=== PATIENT | female | born 1950 | race Asian ===

== ENCOUNTER 2018-02-07 12:59 | Emergency (ER) | payer BC ==
--- OUTSIDE RECORDS SUMMARY | 2018-02-07 13:01 | XMS REPORT | Clinical Summary ---
:1950 Author Organization [facility] Address [address] [place] [id number] Care Team Providers Name Role Phone Vita Taylor Primary Care Provider Allergies Active Allergy Reactions Severity Noted Date Comments Hydrocodone Palpitations, Other (See Comments) High 08/21/2016 Headaches Morphine GI Intolerance High 08/21/2016 Current Medications Prescription Sig. Disp. Refills Start Date End Date Status HYDROcodone-acetaminophen Take 1 tablet by 0 06/11/2016 Active (NORCO 10-325) 10-325 mg mouth 2 (two) times per tablet a day. metFORMIN (GLUCOPHAGE) Take 500 mg by 6 07/07/2016 Active 500 MG tablet mouth 2 (two) times a day. MOVANTIK 25 mg tablet TAKE 1 TABLET ONCE 0 07/24/2016 Active tablet A DAY FOR 90 DAY(S) ondansetron (ZOFRAN) 4 MG TAKE 1 TABLET BY 0 07/14/2016 Active tablet MOUTH EVERY 12 HOURS NEEDED FOR NAUSEA valACYclovir (VALTREX) Take 1,000 mg by 2 07/23/2016 Active 1000 MG tablet mouth 2 (two) times a day. omeprazole (PriLOSEC) 40 Take 40 mg by mouth Active MG capsule daily. aspirin (ECOTRIN) 81 MG Take 81 mg by mouth Active enteric coated tablet daily. cyanocobalamin, vitamin Place 2,500 mcg Active B-12, (VITAMIN B-12) under the tongue 2,500 mcg tablet, daily. sublingual ascorbic acid, vitamin C, Take 1,000 mg by Active (vitamin C) 1000 MG mouth daily. tablet cholecalciferol, vitamin Take 1,000 Units by Active D3, (VITAMIN D3) 1,000 mouth daily. unit tablet psyllium husk, aspartame, Take 1 Units by Active (METAMUCIL MULTIHEALTH mouth daily. FIBER) 3.4 gram/5.8 gram powder pravastatin (PRAVACHOL) Take 40 mg by mouth Active 40 MG tablet daily. multivitamin with Take 1 tablet by Active minerals tablet mouth daily. Active Problems Problem Noted Date Cancer 10/21/2006 Overview: Cervical 2007 Diabetes mellitus Overview: type II Frequent headaches Diabetes mellitus Overview: Borderline Family History Medical History Relation Name Comments No Known Problems Brother No Known Problems Brother No Known Problems Daughter No Known Problems Father No Known Problems Mother No Known Problems Sister No Known Problems Sister No Known Problems Sister No Known Problems Sister No Known Problems Son Relation Name Status Comments Brother Alive Brother Alive Daughter Alive Father Mother Alive Sister Alive Sister Alive Sister Alive Sister Alive Son Alive Social History Tobacco Use Types Packs/Day Years Used Date Current Every Day Smoker Cigarettes 0.5 Smokeless Tobacco: Never Used Tobacco Cessation: Ready to Quit: No Alcohol Use Drinks/Week oz/Week Comments No Sex Assigned at Date Recorded Not on file Last Filed Vital Signs Not on file Plan of Treatment Health Maintenance Due Date Last Done Comments FOOT EXAM 01/18/1960 OPHTHALMOLOGY EXAM 01/18/1960 COLONOSCOPY 01/18/2000 MAMMOGRAM 01/18/2000 ZOSTER VACCINE 2010 PNEUMOCOCCAL POLYSACCHARIDE VACCINE AGE 65 AND OVER 2015 PNEUMOCOCCAL-13 2015 INFLUENZA VACCINE 05/21/2018 Results Not on fileafter 02/06/2017 Insurance Payer Benefit Plan / Group Subscriber ID Type Phone Address BCBS BCBS CHOICE PPO/FEDERAL EMPL PPO xxxxxxxxxxxx PPO MEDICARE MEDICARE PART A AND B xxxxxxxxxx Medicare [place], [place]
[2018-02-07 13:52] LABS: Absolute Lymphocytes (CBC) 1.1 K/uL (0.7-4.9); Absolute Monocytes 0.3 K/uL (0.1-1.3); Absolute Neutrophil 3.7 K/uL (1.8-8.0); Basophils % 0.9 % (0-1.3); Eosinophils % 1.7 % (0-4.4); Hematocrit 40.5 % (36.0-45.0); Lymphocytes % 21.4 % (15.3-44.8); MCH 32.1 pg (27.0-35.0); MCV 95.7 fL (80-100); MPV 8.2 fL (7.6-11.3); Monocytes % 4.9 % (3.3-12.3); RBC Red Blood Cell Count 4.23 M/uL (3.86-4.86)
[2018-02-07 14:01] LABS: Bicarbonate 27 mEq/L (21-31); Glucose Level 105 mg/dL (65-120); Potassium 3.9 mEq/L (3.6-5.0); Sodium Level 134 mEq/L (135-145)
[2018-02-07 14:34] LABS: BUN Blood Urea Nitrogen 16 mg/dL (6-20)
[2018-02-07] MEDS ORDERED: FENTANYL CITR 100 MCG/2 ML ONE (14:36)
[2018-02-07] MEDS ORDERED: ONDANSETRON 4 MG/2 ML VIAL ONE (14:37)
[2018-02-07 14:42] LABS: Urine Blood NEGATIVE (NEG); Urine Glucose NEGATIVE (NEG); Urine Protein NEGATIVE (NEG)
[2018-02-07] MEDS ORDERED: D50W 25 GM/50 ML SYRINGE IV ONE (15:05)
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
--- NOTE | 2018-02-07 15:40 | RAD REPORT ---
EXAM DESCRIPTION: RAD - Shoulder Right 2 View - 02/07/2018 3:35 pm CLINICAL HISTORY: Right shoulder pain FINDINGS: No fracture or dislocation is seen. The bones are osteoporotic
[2018-02-07 15:46] LABS: Blood Morphology Comment NOT SEEN (NOT SEEN); Platelet Estimate ADEQ; Urine White Blood Cell Casts OK
--- NOTE | 2018-02-07 15:49 | EKG ---
Test Date: 2018-02-07 Test Time: 13:45:29 [employer] Registrar: SHERIE MEASUREMENT RESULTS: Intervals: Rate: 72 MA: 190 QRSD: 80 QT: 426 QTc: 466 [place]: P: 43 MA: 190 QRS: 17 T: 36 INTERPRETIVE STATEMENTS: Normal sinus rhythm Normal ECG Compared to ECG 12/14/2017 06:00:36 Myocardial infarct finding no longer present Electronically Signed On 02-07-18 15:48:51 CDT by Richard Neville
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
[2018-02-07] MEDS ORDERED: CYCLOBENZAPRINE 10 MG TAB ONE (16:14)
[2018-02-07 16:27] LABS: Urine Bacteria <20 /HPF (<20); Urine Culture Reflex Order NOT NEEDED; Urine Mucus NS /HPF (NONE SEEN); Urine RBC <5 /HPF (NONE SEEN)
[2018-02-07 16:48] VITALS: TEMP 98.9
[2018-02-07 16:50] VITALS: O2SAT 99
[2018-02-07 16:52] VITALS: BP 121/75
== END 2018-02-07 16:27 | disposition home or self-care (01) ==
LOC: ER 12:59
DX: M54.2 Cervicalgia (principal); M54.9 Dorsalgia, unspecified; V43.53XA Car driver injured in collision with pick-up truck in traffic accident, initial encounter; E11.9 Type 2 diabetes mellitus without complications; E78.00 Pure hypercholesterolemia, unspecified; Z88.5 Allergy status to narcotic agent
CPT/HCPCS: 36415; 70450; 71260; 72125; 74177; 80048; 81003; 81015; 82962; 84484; 85025; 86850; 86900; 86901; 93005; 96374; 96375; 99285; J2405; J3010; Q9967

== ENCOUNTER 2018-05-01 16:21 | Emergency (ER) | payer BC, OTHER ==
--- OUTSIDE RECORDS SUMMARY | 2018-05-01 16:23 | XMS REPORT | Clinical Summary ---
:1950 Author Organization [facility] Address [address] [place] [id number] Care Team Providers Name Role Phone Vita [...] Health Maintenance Due Date Last Done Comments DIABETIC FOOT EXAM 01/18/1960 DIABETIC RETINAL EYE EXAM 01/18/1960 BREAST CANCER SCREENING 01/18/2000 COLON CANCER SCREENING 01/18/2000 SHINGRIX VACCINE (#1) 01/18/2000 ZOSTER VACCINE 2010 PNEUMOCOCCAL POLYSACCHARIDE VACCINE AGE 65 AND OVER 2015 PNEUMOCOCCAL-13 2015 INFLUENZA VACCINE 05/21/2018 Results Not on fileafter 04/30/2017 Insurance Payer Benefit Plan / Group Subscriber ID Type Phone Address BCBS BCBS CHOICE PPO/FEDERAL EMPL PPO xxxxxxxxxxxx PPO MEDICARE MEDICARE PART A AND B xxxxxxxxxx Medicare [place], [place] [phone] [place] [address]
[2018-05-01] MEDS ORDERED: NA CHLORIDE 0.9% 1,000 ML ONE (17:17)
[2018-05-01] MEDS ORDERED: MEPERIDINE HCL 50 MG/ML AMP ONE (17:17)
[2018-05-01] MEDS ORDERED: ONDANSETRON 4 MG/2 ML VIAL ONE (17:17)
[2018-05-01 17:44] LABS: Absolute Lymphocytes (CBC) 0.7 K/uL (0.7-4.9); Absolute Monocytes 0.9 K/uL (0.1-1.3); Absolute Neutrophil 10.7 K/uL (1.8-8.0); Basophils % 0.3 % (0-1.3); Eosinophils % 0.9 % (0-4.4); Hematocrit 42.1 % (36.0-45.0); Lymphocytes % 5.8 % (15.3-44.8); MCH 32.9 pg (27.0-35.0); MCV 95.3 fL (80-100); Monocytes % 6.9 % (3.3-12.3); RBC Red Blood Cell Count 4.41 M/uL (3.86-4.86)
--- NOTE | 2018-05-01 17:46 | RAD REPORT ---
EXAM DESCRIPTION: CT - Stone Protocol - 05/01/2018 5:38 pm CLINICAL HISTORY: Flank pain. FLANK PAIN COMPARISON: Abdomen Pelvis W Contrast dated 12/14/2017Abdomen Pelvis W Contrast dated 12/14/2017; Head C Spine Cap W Con dated 02/07/2018 TECHNIQUE: Axial images were obtained without oral or IV contrast. Lack of contrast limits solid org an and vascular assessment. The [id number] spans the entirety of the system partially obscuring uppermost abdomen and lung bases. Coronal reformatted images were obtained and reviewed. All CT scans are performed using dose optimization technique as appropriate and may include automated exposure control or mA/KV adjustment according to patient size. FINDINGS: The lower lung bullock are clear. Imaged portions of the liver and spleen show no suspicious findings on non-contrast imaging. The panc reas and adrenal glands are normal. No pathologic lymphadenopathy in the abdomen or pelvis. No urinary tract stones or obstructive uropathy. Prominent right renal cyst is noted. No bowel obstruction, free air, free fluid or abscess. Normal appendix noted. No significant bony abnormality. IMPRESSION: No urinary tract stones or obstructive uropathy.
[2018-05-01 19:44] LABS: Blood Morphology Comment NOT SEEN (NOT SEEN); Platelet Estimate ADEQ
[2018-05-01] MEDS ORDERED: MEPERIDINE HCL 25 MG/0.5 ML ONE (20:04)
[2018-05-01 20:05] LABS: ALT/SGPT 22 U/L (12-78); AST/SGOT 18 U/L (15-37); Alkaline Phosphatase 77 U/L (45-117); Amylase Level 51 U/L (25-115); BUN Blood Urea Nitrogen 20 mg/dL (7-18); Bicarbonate 25 mmol/L (21-32); Bilirubin Direct 0.1 mg/dL (0-0.2); Bilirubin Total 0.5 mg/dL (0.2-1.0); Glucose Level 138 mg/dL (74-106); Lipase 297 U/L (73-393); Potassium 3.6 mmol/L (3.5-5.1); Protein, Total 7.5 g/dL (6.4-8.2); Sodium Level 141 mmol/L (136-145)
[2018-05-01 20:46] LABS: Urine Blood NEGATIVE (NEG); Urine Glucose NEGATIVE (NEG); Urine Protein NEGATIVE (NEG); Urine Specific Gravity 1.025 (1.005-1.030); Urine pH 5.5 (5.0-7.0)
[2018-05-01 20:46] LABS: Urine Amorphous Sediment 1+ /HPF (NONE SEEN); Urine Bacteria <20 /HPF (<20); Urine Culture Reflex Order NOT NEEDED; Urine RBC <5 /HPF (NONE SEEN)
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
--- NOTE | 2018-05-01 20:51 | ER ---
Nurse's Notes [facility] Name: Tunde Ochoa Age: 68 yrs Sex: Female : 1950 Arrival Date: 05/01/2018 Time: 16:22 Bed 5 Private MD: Out, [facility] Diagnosis: Unspecified abdominal pain;Vomiting;Low back pain Presentation: 05/01 16:38 Presenting complaint: Patient states: She's been throwing up for the past hour. Her aj1 states that she was vomiting in the bathroom and she passed out for approximately 15 seconds. States that she passed out again in the truck while vomiting. She was suppose to have a CT done today, but they weren't able to do it because she had eaten, so they had it rescheduled for tomorrow. She has been having RLQ and LLQ abdominal pain for 3 weeks. Transition of care: patient was not received from another setting of care. Onset of symptoms was May 01, 2018. Risk Assessment: Do you want to hurt yourself or someone else? Patient reports no desire to harm self or others. Initial Sepsis Screen: Does the patient meet any 2 criteria? No. Patient's initial sepsis screen is negative. Does the patient have a suspected source of infection? No. Patient's initial sepsis screen is negative. Care prior to arrival: None. 16:38 Method Of Arrival: Wheelchair aj1 16:38 Acuity: GUS 3 aj1 Triage Assessment: 16:45 General: Appears in no apparent distress. uncomfortable, Behavior is calm, cooperative, aj1 appropriate for age. Pain: Complains of pain in right lower quadrant and left lower quadrant Pain currently is 10 out of 10 on a pain scale. Neuro: Level of Consciousness is awake, alert, obeys commands, Speech is normal. Cardiovascular: Patient's skin is warm and dry. Respiratory: Airway is patent Respiratory effort is even, unlabored, Respiratory pattern is regular, symmetrical. GI: Reports constipation, nausea, vomiting, Patient currently denies diarrhea. Derm: Skin is pink, warm \T\ dry. normal. Historical: - Allergies: 16:45 Morphine; aj1 - Home Meds: 16:45 Metformin Oral [Active]; Omeprazole Oral [Active]; pravastatin oral oral [Active]; aj1 Aspirin Oral [Active]; - PMHx: 16:45 Diabetes - NIDDM; High Cholesterol; aj1 - Immunization history:: Flu vaccine is not up to date. - Social history:: Smoking status: Patient/guardian denies using tobacco. - Ebola Screening: : Patient denies travel to an Ebola-affected area in the 21 days before illness onset. Screenin:10 Abuse screen: Denies threats or abuse. Denies injuries from another. Nutritional hb screening: No deficits noted. Tuberculosis screening: No symptoms or risk factors identified. Fall Risk None identified. Assessment: 17:10 General: Appears in no apparent distress. ill, Behavior is calm, cooperative. Pain: hb Pain currently is 8 out of 10 on a pain scale. Neuro: Level of Consciousness is awake, alert, obeys commands, Oriented to person, place, time, situation. Cardiovascular: Heart tones S1 S2 present Capillary refill < 3 seconds Patient's skin is warm and dry. Respiratory: Airway is patent Trachea midline Respiratory effort is even, unlabored, Respiratory pattern is regular, symmetrical, Breath sounds are clear bilaterally. GI: Abdomen is non-distended, Bowel sounds present X 4 quads. Abd is soft and non tender X 4 quads. Reports nausea, vomiting. : No signs and/or symptoms were reported regarding the genitourinary system. EENT: No signs and/or symptoms were reported regarding the EENT system. Derm: No signs and/or symptoms reported regarding the dermatologic system. Skin is intact, is healthy with good turgor. Musculoskeletal: No signs and/or symptoms reported regarding the musculoskeletal system. 18:14 Reassessment: Patient appears in no apparent distress at this time. Patient and/or hb family updated on plan of care and expected duration. Pain level reassessed. Patient is alert, oriented x 3, equal unlabored respirations, skin warm/dry/pink. Vital Signs: 16:45 BP 94 / 67; Pulse 104; Resp 20; Temp 98.2; Pulse Ox 95% on R/A; Weight 58.06 kg; Height aj1 5 ft. 0 in. (152.40 cm); Pain 10/10; 17:30 BP 106 / 60; Pulse 99; Resp 17; Pulse Ox 100% on R/A; hb 18:14 BP 109 / 63; Pulse 87; Resp 16; Pulse Ox 100% on R/A; hb 19:43 BP 97 / 62; Pulse 82; Resp 18; Pulse Ox 97% on R/A; tl2 20:28 BP 101 / 55; Pulse 81; Resp 18; Pulse Ox 96% on R/A; tl2 16:45 Body Mass Index 25.00 (58.06 kg, 152.40 cm) aj1 ED Course: 16:22 Patient arrived in ED. mr 16:23 Out, [facility] is Private Physician. mr 16:44 Triage completed. aj1 16:45 Arm band placed on Patient placed in an exam room. aj1 17:00 Niranjan Garrison, PARVEZ is PHCP. pm1 17:00 Fernando Deleon MD is Attending Physician. pm1 17:10 Patient has correct armband on for positive identification. Placed in gown. Bed in low hb position. Call light in reach. Side rails up X 1. 17:[address] vm2 17:30 Inserted saline lock: 20 gauge in right forearm, using aseptic technique. Blood hb collected. 17:35 CT completed. Patient tolerated procedure well. Patient moved back from CT. vm2 17:36 Ludivina Reyez, RN is Primary Nurse. hb 17:[address] In Process Unspecified. EDMS 21:08 No provider procedures requiring assistance completed. IV discontinued, intact, tl1 bleeding controlled, No redness/swelling at site. Pressure dressing applied. Administered Medications: 17:30 Drug: Demerol 50 mg Route: IVP; Site: right forearm; hb 18:20 Follow up: Response: No adverse reaction; Pain is decreased hb 17:30 Drug: Zofran 4 mg Route: IVP; Site: right forearm; hb 18:15 Follow up: Response: No adverse reaction; Nausea is decreased hb 17:30 Drug: NS 0.9% 1000 ml Route: IV; Rate: 1000 ml; Site: right forearm; hb 21:07 Follow up: IV Status: Completed infusion tl1 20:04 Drug: Demerol 25 mg Route: IVP; Infused Over: 2 mins; Site: right wrist; tl1 21:07 Follow up: Response: No adverse reaction; Marked relief of symptoms; Pain is decreased tl1 Outcome: 20:50 Discharge ordered by . pm1 21:08 Discharged to home ambulatory, with family. tl1 21:08 Condition: good 21:08 Discharge instructions given to patient, Instructed on discharge instructions, follow up and referral plans. medication usage, Demonstrated understanding of instructions, follow-up care, medications, Prescriptions given X 2. 21:09 Patient left the ED. tl1 Signatures: Dispatcher [employer] EDMS Elsie Chavez, RN RN aj1 Cecy Galeas, Lynda, RN RN tl1 Niranjan Garrison, [employer]GRAM DIRECTOR [employer] PROGRAM DIRECTOR pm1 Ludivina Reyez RN RN Billie Christianson RN RN tl2 Enid Carter 2 Corrections: (The following items were deleted from the chart) 16:58 16:38 Presenting complaint: Patient states: She's been throwing up for the past hour. aj1 Her states that she was vomiting in the bathroom and she passed out for approximately 15 seconds. States that she passed out again in the truck while vomiting. She was suppose to have a CT done today, but they were able to do it because she had eaten, so they had it rescheduled for tomorrow. She has been having RLQ and LLQ abdominal pain for 3 weeks. aj1
[2018-05-01 21:17] VITALS: TEMP 98.2
[2018-05-01 21:22] VITALS: BP 101/55; O2SAT 96
== END 2018-05-01 21:09 | disposition home or self-care (01) ==
LOC: ER 16:21
DX: R10.9 Unspecified abdominal pain (principal); M54.5 Low back pain; E11.9 Type 2 diabetes mellitus without complications; E78.00 Pure hypercholesterolemia, unspecified; Z88.5 Allergy status to narcotic agent
CPT/HCPCS: 36415; 74176; 76377; 80048; 80076; 81003; 81015; 82150; 83690; 85025; 99284; J2175; J2405; J7030

== ENCOUNTER 2018-05-25 03:02 | Inpatient (IN) | payer BC, OTHER ==
--- OUTSIDE RECORDS SUMMARY | 2018-05-25 03:04 | XMS REPORT | Clinical Summary ---
:1950 Author Organization [facility] Address [address] [place] [id number] Care Team Providers Name Role Phone Vita [...] INFLUENZA VACCINE 05/21/2018 Results Not on fileafter 05/24/2017 Insurance Payer Benefit Plan / Group Subscriber ID Type Phone Address BCBS BCBS CHOICE PPO/FEDERAL EMPL PPO xxxxxxxxxxxx PPO MEDICARE MEDICARE PART A AND B xxxxxxxxxx Medicare [place], [place] [phone] [place] [address]
[2018-05-25] MEDS ORDERED: MEPERIDINE HCL 25 MG/0.5 ML ONE ×2 (03:27→04:37)
--- NOTE | 2018-05-25 04:26 | ER ---
Nurse's Notes [facility] Name: Tunde Ochoa Age: 68 yrs Sex: Female : 1950 Arrival Date: 05/25/2018 Time: 03:03 Bed 5 Private MD: Diagnosis: Displaced fracture of base of neck of right femur;Nondisplaced transverse fracture of shaft of right radius Presentation: 05/25 03:00 Presenting complaint: EMS states: Patient tried climbing over child gate, fell on her ea right side onto tile floor. Pt reports she hit her head, denied LOC. Care prior to arrival: None. Mechanism of Injury: Fall from standing position. Trauma event details: Injury occurred in the [facility], Injury occurred: at home. Injury occurred: May 25, 2018 Injury occurred at: 03:10. 03:00 Acuity: GUS 3 ea 03:00 Method Of Arrival: EMS: [facility] ea 03:00 Transition of care: patient was not received from another setting of care. Onset of ea symptoms was May 25, 2018. Risk Assessment: Do you want to hurt yourself or someone else? Patient reports no desire to harm self or others. Initial Sepsis Screen: Does the patient meet any 2 criteria? No. Patient's initial sepsis screen is negative. Does the patient have a suspected source of infection? No. Patient's initial sepsis screen is negative. Historical: - Allergies: 03:24 Morphine; ea - Home Meds: 03:24 Aspirin Oral [Active]; Metformin Oral [Active]; Omeprazole Oral [Active]; pravastatin ea Oral [Active]; - PMHx: 03:24 Diabetes - NIDDM; High Cholesterol; ea - Immunization history:: Adult Immunizations up to date. - Social history:: Smoking status: Patient/guardian denies using tobacco. - Family history:: not pertinent. - Ebola Screening: : No symptoms or risks identified at this time. - Hospitalizations: : No recent hospitalization is reported. Screenin:20 Abuse screen: Denies threats or abuse. Nutritional screening: No deficits noted. ea Tuberculosis screening: No symptoms or risk factors identified. Fall Risk Fall in past 12 months (25 points). Primary Survey: 03:00 A: Airway: patent. Breathing/Chest: Respiratory pattern: regular, Respiratory effort: ea spontaneous, unlabored, Breath sounds: clear, Chest inspection: symmetrical rise and fall of the chest. Circulation: Skin color: pink, Skin temperature: warm. Disability Alert. 04:00 Reassessment Breathing/Chest Respiratory pattern Regular Respiratory effort Spontaneous ea Unlabored Chest inspection Symmetrical. Secondary Survey: 03:00 Musculoskeletal: Swelling present in right hip and right wrist Reports pain in right ea hip and right wrist. Assessment: 03:00 General: Appears uncomfortable, Behavior is calm, cooperative, appropriate for age. ea Pain: Complains of pain in right hip and right wrist. Neuro: Level of Consciousness is awake, alert, obeys commands, Oriented to person, place, time, situation. Cardiovascular: Patient's skin is warm and dry. Respiratory: Airway is patent Respiratory effort is even, unlabored, Respiratory pattern is regular, symmetrical. Musculoskeletal: Swelling present in right wrist. 04:15 Reassessment: Patient and/or family updated on plan of care and expected duration. Pain ea level reassessed. Patient is alert, oriented x 3, equal unlabored respirations, skin warm/dry/pink. 05:15 Reassessment: Patient and/or family updated on plan of care and expected duration. Pain ea level reassessed. Patient is alert, oriented x 3, equal unlabored respirations, skin warm/dry/pink. 06:15 Reassessment: Report called to receiving nurse on 4 th floor. ea 06:30 Reassessment: pt O2 sats dropped to 87% after administration of pain medication O2 ea applied via NC \\T\\ 2 Lpm pt sats now 98%. 07:05 Reassessment: Patient is alert, oriented x 3, equal unlabored respirations, skin aa5 warm/dry/pink. Pt notified of wait time before transportation to assigned room, pt verbalized understanding. Pt states "my pain is worse when I move even just a little bit". pt c/o pain to right hip and right wrist. Rates pain 6/10 on a pain scale at this time. Bed remains in low position, side rails x 2, call chavez within reach. . 07:05 Cardiovascular: Pulses are 3+ in right dorsalis pedis artery and left dorsalis pedis aa5 artery. 07:35 Reassessment: Patient is alert, oriented x 3, equal unlabored respirations, skin aa5 warm/dry/pink. Vital Signs: 03:05 BP 106 / 64; Pulse 98; Resp 18; Temp 98.2; Pulse Ox 99% on R/A; Weight 58.97 kg; Height ea 5 ft. (152.40 cm); Pain 9/10; 04:15 BP 110 / 68; Pulse 82; Resp 18; Pulse Ox 96% on R/A; ea 05:15 BP 112 / 70; Pulse 70; Resp 18; Pulse Ox 97% on R/A; Pain 8/10; ea 06:15 BP 104 / 64; Pulse 95; Resp 18; Pulse Ox 99% on R/A; ea 07:05 BP 106 / 64; Pulse 90; Resp 16 S; Temp 98.0(TE); Pulse Ox 100% on 2 lpm NC; aa5 03:05 Body Mass Index 25.39 (58.97 kg, 152.40 cm) ea Buckhead Coma Score: 03:05 Eye Response: spontaneous(4). Verbal Response: oriented(5). Motor Response: obeys ea commands(6). Total: 15. 05:15 Eye Response: spontaneous(4). Verbal Response: oriented(5). Motor Response: obeys ea commands(6). Total: 15. 06:15 Eye Response: spontaneous(4). Verbal Response: oriented(5). Motor Response: obeys ea commands(6). Total: 15. Trauma Score (Adult): 03:05 Eye Response: spontaneous(1); Verbal Response: oriented(1); Motor Response: obeys ea commands(2); Systolic BP: > 89 mm Hg(4); Respiratory Rate: 10 to 29 per min(4); Buckhead Score: 15; Trauma Score: 12 07:05 Eye Response: spontaneous(1); Verbal Response: oriented(1); Motor Response: obeys aa5 commands(2); Systolic BP: > 89 mm Hg(4); Respiratory Rate: 10 to 29 per min(4); Alice Score: 15; Trauma Score: 12 ED Course: 03:00 Arm band placed on right wrist. Patient placed in an exam room, on a stretcher, on ea pulse oximetry. 03:00 Patient has correct armband on for positive identification. Bed in low position. Call ea light in reach. Side rails up X2. 03:03 Patient arrived in ED. ds1 03:05 Michael Patel MD is Attending Physician. rn 03:06 Sarah Mendiola, RN is Primary Nurse. ea 03:10 Triage completed. ea 03:20 Patient maintains SpO2 saturation greater than 95% on room air. Thermoregulation: warm ea blanket given to patient. 03:35 Radiology exam delayed due to Patient in XRay. la2 03:36 Radiology exam delayed due to Waiting for pain medication before moving patient to CT la2 for exam. Patient in extreme pain. 03:52 Radiology exam delayed due to Waiting for IV access so patient can be given pain vm2 medication prior to moving to CT for exam. 04:10 Missed attempt(s): 20 gauge in left hand. Bleeding controlled, band aid applied, bb catheter tip intact. 04:18 XRAY Wrist RIGHT 3 view In Process Unspecified. EDMS 04:18 XRAY Pelvis In Process Unspecified. EDMS 04:18 XRAY Hip RIGHT 2 view In Process Unspecified. EDMS 04:23 Edgar Foy MD is Hospitalizing Provider. rn 04:30 Radiology exam delayed due to IV started but still waiting for pain meds to be given vm2 prior to moving to CT for exam. Attending ED nurse stated it would be approx. 10 min. before I can transport the patient to the CT department for her exam. 04:30 Initial lab(s) drawn, by ED staff, sent to lab. T\\T\\S collected, blood band applied to bb patient. Inserted saline lock: 20 gauge in left antecubital area, using aseptic technique. ,using aseptic technique. by Dr Patel Blood collected. 05:[address] via stretcher. kw1 05:17 CT completed. Patient tolerated procedure well. Patient moved back from CT. kw1 05:33 Orthoglass splint: Sugar tong splint applied on right arm. oe 06:30 Inserted saline lock: 18 gauge in right EJ, using aseptic technique. ea 07:00 Report received from ROSS Smith. Sarah notified me that report has been called to aa5 receiving nurse and pt can be transported to assigned room around 0730. 07:05 No provider procedures requiring assistance completed. Patient admitted, IV remains in ea place. 07:29 Primary Nurse role handed off by Sarah Mendiola, RN bd Administered Medications: 04:10 Drug: Demerol 25 mg {Note: medication administered IM to right deltoid.} Route: IVP; ea Site: Other; 04:16 Follow up: Response: No adverse reaction; Pain is decreased ea 04:32 Drug: Demerol 25 mg {Note: medication adminsitered IM in left deltoid .} Route: IVP; ea Site: Other; 05:00 Follow up: Response: No adverse reaction; Pain is decreased ea 04:32 Drug: Zofran 4 mg Route: IM; Site: left deltoid; ea 05:00 Follow up: Response: No adverse reaction ea 05:13 CANCELLED (Duplicate Order): Zofran 4 mg IVP once; over 2 minutes ea Outcome: 04:25 Decision to Hospitalize by Provider. rn 05:00 Instructed on the need for admit. ea 07:35 Admitted to Med/surg accompanied by tech, via stretcher, with oxygen, with chart. aa5 07:35 Condition: stable 07:40 Patient left the ED. aa5 Signatures: Dispatcher [employer] EDMS Zeina Gaspar Demi ds1 Francia Daniel RN RN bb Michael Patel MD MD rn Calderon, Audri, RN RN aa5 Chet Crouch Victoria vm2 Antunez, Elena, RN RN ea Ardoin, Leslie la2 Josseline Hudson kw1 Corrections: (The following items were deleted from the chart) 07:12 07:10 Reassessment: Report called to receiving nurse on 4 th floor. ea 07:51 07:49 Patient left the ED. aa5 aa5
--- NOTE | 2018-05-25 04:26 | EDPHYS ---
Physician Documentation [facility] Name: Tunde Ochoa Age: 68 yrs Sex: Female : 1950 Arrival Date: 05/25/2018 Time: 03:03 Bed 5 Private MD: ED Physician Michael Patel HPI: 05/25 04:09 This 68 yrs old Female presents to ER via EMS with complaints of Fall Injury. rn 04:09 Details of fall: The patient fell from an upright position, while walking. Onset: The rn symptoms/episode began/occurred just prior to arrival. Associated injuries: The patient sustained injury to the head, right hip, right wrist. Severity of symptoms: At their worst the symptoms were moderate, in the emergency department the symptoms are unchanged. The patient has not experienced similar symptoms in the past. Had several patron drinks tonight, normally doesn't drink, tried to climb over safety gate, tripped, fell onto right side, hit head, no LOC, reports only right wrist and right hip pain, not ambulatory.. Historical: - Allergies: 03:24 Morphine; ea - Home Meds: 03:24 Aspirin Oral [Active]; Metformin Oral [Active]; Omeprazole Oral [Active]; pravastatin ea Oral [Active]; - PMHx: 03:24 Diabetes - NIDDM; High Cholesterol; ea - Immunization history:: Adult Immunizations up to date. - Social history:: Smoking status: Patient/guardian denies using tobacco. - Family history:: not pertinent. - Ebola Screening: : No symptoms or risks identified at this time. - Hospitalizations: : No recent hospitalization is reported. ROS: 04:09 Constitutional: Negative for fever, chills, and weight loss, Eyes: Negative for injury, rn pain, redness, and discharge, Neck: Negative for injury, pain, and swelling, Cardiovascular: Negative for chest pain, palpitations, and edema, Respiratory: Negative for shortness of breath, cough, wheezing, and pleuritic chest pain, Abdomen/GI: Negative for abdominal pain, nausea, vomiting, diarrhea, and constipation, Back: Negative for injury and pain, MS/Extremity: + right wrist pain, + right hip pain Skin: Negative for injury, rash, and discoloration, Neuro: Negative for headache, weakness, numbness, tingling, and seizure. Exam: 04:09 Constitutional: This is a well developed, well nourished patient who is awake, alert, rn appears in pain Head/Face: Normocephalic, atraumatic. Eyes: Pupils equal round and reactive to light, extra-ocular motions intact. Lids and lashes normal. Conjunctiva and sclera are non-icteric and not injected. Cornea within normal limits. Periorbital areas with no swelling, redness, or edema. Neck: Trachea midline, no thyromegaly or masses palpated, and no cervical lymphadenopathy. Supple, full range of motion without nuchal rigidity, or vertebral point tenderness. No Meningismus. Cardiovascular: Regular rate and rhythm with a normal S1 and S2. No gallops, murmurs, or rubs. Normal PMI, no JVD. No pulse deficits. Respiratory: Lungs have equal breath sounds bilaterally, clear to auscultation and percussion. No rales, rhonchi or wheezes noted. No increased work of breathing, no retractions or nasal flaring. Abdomen/GI: Soft, non-tender, with normal bowel sounds. No distension or tympany. No guarding or rebound. No evidence of tenderness throughout. Back: No spinal tenderness. MS/ Extremity: Pulses equal, no cyanosis. Neurovascular intact. Painful ROM right hip, held in passive external rotation. + mild right wrist tenderness along distal radius, no deformity, + mild swelling. Neuro: Awake and alert, GCS 15, oriented to person, place, time, and situation. Cranial nerves II-XII grossly intact. Motor strength 5/5 in all extremities. Sensory grossly intact. Vital Signs: 03:05 BP 106 / 64; Pulse 98; Resp 18; Temp 98.2; Pulse Ox 99% on R/A; Weight 58.97 kg; Height ea 5 ft. (152.40 cm); Pain 9/10; 04:15 BP 110 / 68; Pulse 82; Resp 18; Pulse Ox 96% on R/A; ea 05:15 BP 112 / 70; Pulse 70; Resp 18; Pulse Ox 97% on R/A; Pain 8/10; ea 06:15 BP 104 / 64; Pulse 95; Resp 18; Pulse Ox 99% on R/A; ea 07:05 BP 106 / 64; Pulse 90; Resp 16 S; Temp 98.0(TE); Pulse Ox 100% on 2 lpm NC; aa5 03:05 Body Mass Index 25.39 (58.97 kg, 152.40 cm) ea [place] Coma Score: 03:05 Eye Response: spontaneous(4). Verbal Response: oriented(5). Motor Response: obeys ea commands(6). Total: 15. 05:15 Eye Response: spontaneous(4). Verbal Response: oriented(5). Motor Response: obeys ea commands(6). Total: 15. 06:15 Eye Response: spontaneous(4). Verbal Response: oriented(5). Motor Response: obeys ea commands(6). Total: 15. Trauma Score (Adult): 03:05 Eye Response: spontaneous(1); Verbal Response: oriented(1); Motor Response: obeys ea commands(2); Systolic BP: > 89 mm Hg(4); Respiratory Rate: 10 to 29 per min(4); Alice Score: 15; Trauma Score: 12 07:05 Eye Response: spontaneous(1); Verbal Response: oriented(1); Motor Response: obeys aa5 commands(2); Systolic BP: > 89 mm Hg(4); Respiratory Rate: 10 to 29 per min(4); Alice Score: 15; Trauma Score: 12 Procedures: 04:21 Peripheral line: by aseptic technique a peripheral line was placed in the left rn antecubital vein, Using u/s guidance, placed left peripheral IV, good blood flow and flush, single stick, tolerated well.. 06:13 Peripheral line: by aseptic technique a peripheral line was placed in the right jr8 external jugular vein. MDM: 03:05 Patient medically screened. rn 04:22 Differential diagnosis: closed head injury, contusion, fracture, multiple trauma, rn sprain, strain. Data reviewed: vital signs, nurses notes, radiologic studies, plain films, and as a result, I will admit patient. Counseling: I had a detailed discussion with the patient and/or guardian regarding: the historical points, exam findings, and any diagnostic results supporting the discharge/admit diagnosis, radiology results, the need for further work-up and treatment in the hospital. Response to treatment: the patient's symptoms have mildly improved after treatment, and as a result, I will admit patient. Admission orders: after a detailed discussion of the patient's condition and case, the admit orders are written by me. ED course: Pt with subcapital right femur fracture, + buckle fracture of right wrist, will admit for femur fracture, admitted to Dr. Foy.. 05/25 04:00 Order name: CBC with Diff rn 05/25 04:00 Order name: Basic Metabolic Panel rn 05/25 04:00 Order name: Protime (+inr) rn 05/25 04:00 Order name: Ptt, Activated rn 05/25 04:00 Order name: Type And Screen rn 05/25 04:01 Order name: CBC with Automated Diff EDMS 05/25 03:06 Order name: CT Head C Spine rn 05/25 03:06 Order name: XRAY Wrist RIGHT 3 view rn 05/25 03:06 Order name: XRAY Pelvis rn 05/25 03:06 Order name: XRAY Hip RIGHT 2 view rn 05/25 04:01 Order name: Basic Metabolic Panel EDMS 05/25 04:01 Order name: ETOH Level rn 05/25 04:00 Order name: IV Start; Complete Time: 07:15 rn 05/25 04:01 Order name: EKG; Complete Time: 04:01 rn 05/25 04:01 Order name: EKG - Nurse/Tech; Complete Time: 07:14 rn 05/25 04:23 Order name: Splint - Sugar Tong - Forearm; Complete Time: 05:33 rn Administered Medications: 04:10 Drug: Demerol 25 mg {Note: medication administered IM to right deltoid.} Route: IVP; ea Site: Other; 04:16 Follow up: Response: No adverse reaction; Pain is decreased ea 04:32 Drug: Demerol 25 mg {Note: medication adminsitered IM in left deltoid .} Route: IVP; ea Site: Other; 05:00 Follow up: Response: No adverse reaction; Pain is decreased ea 04:32 Drug: Zofran 4 mg Route: IM; Site: left deltoid; ea 05:00 Follow up: Response: No adverse reaction ea 05:13 CANCELLED (Duplicate Order): Zofran 4 mg IVP once; over 2 minutes ea Disposition: 05/25/18 04:25 Hospitalization ordered by Edgar Foy for Inpatient Admission. Preliminary diagnosis are Displaced fracture of base of neck of right femur, Nondisplaced transverse fracture of shaft of right radius. - Bed requested for Telemetry/MedSurg (Inpatient). - Status is Inpatient Admission. aa5 - Condition is Stable. - Problem is new. - Symptoms have improved. UTI on Admission? No Addendum: 05/27/2018 07:11 Co-signature as Attending Physician, Michael Patel MD. r n Signatures: Dispatcher [employer] EDMS Francia Daniel RN RN bb Michael Patel MD MD rn Calderon, Audri, RN RN aa5 Rosa King Josh, PA PA jr8 Sarah Mendiola RN RN ea Corrections: (The following items were deleted from the chart) 05/25 05:13 04:32 Zofran 4 mg IVP once; over 2 minutes ordered. mo melendez 05:13 05:13 Zofran 4 mg IVP once; over 2 minutes ordered. nora melendez 05:46 04:25 Hospitalization Ordered by Edgar Foy MD for Inpatient Admission. Preliminary cc diagnosis is Displaced fracture of base of neck of right femur; Nondisplaced transverse fracture of shaft of right radius. Bed requested for Telemetry/MedSurg (Inpatient). Status is Inpatient Admission. Condition is Stable. Problem is new. Symptoms have improved. UTI on Admission? No. rn 07:49 05:46 05/25/2018 04:25 Hospitalization Ordered by Edgar Foy MD for Inpatient aa5 Admission. Preliminary diagnosis is Displaced fracture of base of neck of right femur; Nondisplaced transverse fracture of shaft of right radius. Bed requested for Telemetry/MedSurg (Inpatient). Status is Inpatient Admission. Condition is Stable. Problem is new. Symptoms have improved. UTI on Admission? No. cc
[2018-05-25] MEDS ORDERED: ONDANSETRON 4 MG/2 ML VIAL ONE (04:37)
[2018-05-25 04:47] LABS: Hematocrit 38.6 % (36.0-45.0); MCH 32.9 pg (27.0-35.0); MCV 94.9 fL (80-100); RBC Red Blood Cell Count 4.07 M/uL (3.86-4.86)
[2018-05-25 04:48] LABS: Absolute Lymphocytes (CBC) 1.1 K/uL (0.7-4.9); Absolute Monocytes 0.4 K/uL (0.1-1.3); Absolute Neutrophil 3.7 K/uL (1.8-8.0); Basophils % 0.6 % (0-1.3); Eosinophils % 1.1 % (0-4.4); Lymphocytes % 20.7 % (15.3-44.8); Monocytes % 6.9 % (3.3-12.3)
[2018-05-25] MEDS ORDERED: ONDANSETRON 4 MG/2 ML VIAL IV PRN (04:52)
[2018-05-25] MEDS: HYDROMORPHONE HCL 1 MG/ML INJ IV PRN ×4 (06:17→20:17)
[2018-05-25] MEDS ORDERED: HYDROMORPHONE HCL 1 MG/ML INJ ONE (06:24)
--- NOTE | 2018-05-25 07:37 | P.HP ---
Certification for Inpatient Patient admitted to: Inpatient With expected LOS: >2 Midnights Patient will require the following post-hospital care: None Practitioner: I am a practitioner with admitting privileges, knowledge of patient current condition, hospital course, and medical plan of care. Services: Services provided to patient in accordance with Admission requirements found in Title 42 Section 412.3 of the Code of Federal Regulations Patient History Date of Service: 05/25/18 Reason for admission: Right femur fracture and right buckle fracture of the radius History of Present Illness: Patient is a 68-year-old female who had been drinking yesterday evening. She normally does not drink according to her and her . However, this evening they have some friends over and she had some Patron. She got out of bed as if her got she had a gate to keep her 3yo Yorkie from going in to the kitchen. She fell over the gait and fell on to her right side. This is how she suffered a right hip fracture and a right wrist fracture. She has a history of diabetes but denies any other medical complications. She denies any shortness of breath or chest pain. She is a little anxious of having surgery. She stated that she wanted her family orthopedic physician, Dr. Amaro, to proceed with surgery. I did speak to her that he was not special education paraprofessional but she said that she wanted me to a notify him and she would wait until Saturday if necessary to be seen. At this time, we will contact her per for orthopedic and discussed the case and see if he is willing to accept as he is not special education paraprofessional this weekend. Otherwise, medically she is very stable. The benefits of surgery outweigh the risk and would recommend to proceed with surgery as soon as possible. Allergies morphine Allergy (Verified 12/14/17 06:45) Unknown Home Medications: Pantoprazole [Protonix Tab] 40 mg PO DAILY #30 tab 12/14/17 - Past Medical/Surgical History Diabetic: Yes -: Diabetes mellitus type 2 -: Hyperlipidemia -: Renal cyst -: Tobacco abuse -: Herniated disk -: Chronic back pain -: GERD -: Hysterectomy -: Breast augmentation -: Psychosocial/ Personal History: The patient is . She has 2 children. 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 - Family History Father Family History: Reviewed- Non-Contributory - Social History Smoking Status: Never smoker Alcohol use: Yes CD- Drugs: No Caffeine use: Yes Review of Systems 10-point ROS is otherwise unremarkable Physical Examination - Vital Signs Temperature: 99 F Blood Pressure: 115/80 Pulse: 80 Respirations: 20 Pulse Ox (%): 89 - Physical Exam General: Alert, In no apparent distress, Oriented x3 HEENT: Atraumatic, PERRLA, Mucous membr. moist/pink, EOMI, Sclerae nonicteric Neck: Supple, 2+ carotid pulse no bruit, No LAD, Without JVD or thyroid abnormality Respiratory: Clear to auscultation bilaterally, Normal air movement Cardiovascular: Regular rate/rhythm, Normal S1 S2, No murmurs Gastrointestinal: Normal bowel sounds, Soft and benign, Non-distended, No tenderness Musculoskeletal: No clubbing, No swelling, Tenderness Integumentary: No rashes, No significant lesion, No tenderness/swelling Neurological: Normal speech, Normal tone, Sensation intact, Cranial nerves 3-12 intact, Normal affect, Abnormal gait, Abnormal strength, Abnormal tone Lymphatics: No axilla or inguinal lymphadenopathy - Studies Laboratory Data (last 24 hrs) 05/25/18 04:20: PT 11.8, INR 1.00, APTT 32.6 05/25/18 04:20: Sodium 143, Potassium 4.0, BUN 18, Creatinine 0.70, Glucose 150 H 05/25/18 04:20: WBC 5.3, Hgb 13.4, Hct 38.6, Plt Count 277 Assessment & Plan - Problems (Diagnosis) (1) Buckle fracture of right wrist Current Visit: Yes Status: Acute (2) Closed right hip fracture Current Visit: Yes Status: Acute (3) Diabetes mellitus Current Visit: No Status: Chronic Qualifiers: Diabetes mellitus type: type 2 Diabetes mellitus retirement insulin use: 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 Gentle IV hydration 2. NPO after midnight 3. Notify orthopedic physician, Dr. Amaro 4. Pain control 5. Medical observation 6. Benefits of surgery outweigh the risk and would proceed with surgery as soon as possible 7. GI and DVT prophylaxis Discharge Plan: Home Plan to discharge in: Greater than 2 days - Advance Directives Does patient have a Living Will: No Does patient have a Durable POA for Healthcare: No - Code Status/Comfort Care Code Status Assessed: Yes Code Status: Full Code Critical Care: No Time Spent Managing PTS Care (In Minutes): 50
--- NOTE | 2018-05-25 09:26 | RAD REPORT ---
EXAM DESCRIPTION: RAD - Pelvis - 05/25/2018 4:18 am CLINICAL HISTORY: Pelvic pain status post fall FINDINGS: A mildly displaced fracture involves the subcapital/proximal neck of the right femur. No d islocation is seen
[2018-05-25] MEDS: NA CHLORIDE 0.9% 1,000 ML IV SCH ×2 (09:27→17:18)
[2018-05-25] MEDS: ACETAMINOPHEN 500 MG TAB PO PRN (09:27)
--- NOTE | 2018-05-25 09:27 | RAD REPORT ---
EXAM DESCRIPTION: RAD - Hip Right 2 View - 05/25/2018 4:18 am CLINICAL HISTORY: Right hip pain status post fall FINDINGS: A mildly displaced fracture involves the subcapital/proximal neck of the right femur. No d islocation is seen
--- NOTE | 2018-05-25 09:29 | RAD REPORT ---
EXAM DESCRIPTION: RAD - Wrist Right 3 View - 05/25/2018 4:18 am CLINICAL HISTORY: Right wrist pain status post injury FINDINGS: The bones are osteoporotic No fracture or dislocation is seen. If the patient continues to have symptoms to suggest an occult fr acture then a followup plain film series in 7 days would be recommended.
--- NOTE | 2018-05-25 09:41 | RAD REPORT ---
EXAM DESCRIPTION: CT - Head C Spine Mpr Wo Con - 05/25/2018 6:22 am CLINICAL HISTORY: Head and neck injury status post fall. Head and neck pain COMPARISON: January 2018 TECHNIQUE: Computed axial tomography of the head and cervical spine was obtained. Sagittal and coronal reconstruction was performed. A preliminary report was generated by [facility] and reviewed prior to this dictation All CT scans are performed using dose optimization technique as appropriate and may include automated exposure control or mA/KV adjustment according to patient size. FINDINGS: An intracranial bleed is not seen. The ventricles are normal in caliber. An extra-axial fl uid collection is not noted.Fluid within the visualized sinuses and mastoids is not seen. Mild chroni c sphenoid sinusitis is present A cervical fracture is not visualized. No dislocation is noted. IMPRESSION: No acute intracranial abnormality is seen. A cervical fracture is not visualized. If the patient continues to have symptoms to suggest intracra nial /spinal cord pathology then MRI would be recommended
[2018-05-25 12:51] LABS: Urine Appearance CLEAR; Urine Bilirubin NEGATIVE (NEG); Urine Blood NEGATIVE (NEG); Urine Color YELLOW; Urine Glucose NEGATIVE (NEG); Urine Protein NEGATIVE (NEG); Urine Urobilinogen 0.2 mg/dL (0.2-1.0)
[2018-05-25 13:05] LABS: Urine Microscopic Reflex NO UMIC
[2018-05-25] MEDS: HYDROCODONE/APAP 10/325 TAB PO PRN (14:33)
[2018-05-25] MEDS: ENOXAPARIN 30 MG/0.3 ML SQ SCH (17:18)
--- NOTE | 2018-05-25 19:32 | RAD REPORT ---
EXAM DESCRIPTION: CT - Wrist Right Wo Cont - 05/25/2018 6:41 pm CLINICAL HISTORY: Wrist pain status post fall TECHNIQUE: Axial computed tomography of the right wrist was obtained with coronal and sagittal recon struction All CT scans are performed using dose optimization technique as appropriate and may include automated exposure control or mA/KV adjustment according to patient size. FINDINGS: An oblique lucency is present within the metaphysis of the distal radius compatible with a nondisplaced fracture. A 4 millimeter avulsed fracture fragment is present along the dorsal aspect o f the radius. The lunate is tilted dorsally with respect to the capitate IMPRESSION: Fracture of the distal radial metaphysis Lunate is tilted dorsally with respect to the capitate which may indicate dorsal intercalated scaphoi d instability
--- NOTE | 2018-05-25 20:07 | CON ---
Date of Consultation: 05/25/2018 History Of Present Illness: I have seen this patient before; however, she currently presents today. She unfortunately fell injuring her right wrist as well as right hip. She was seen and examined in the emergency department. She was ruled out for other injuries; however, she was admitted to the car e of the hospitalist and I am consulted to see her. Physical Examination: She has a sugar-tong splint on the right wrist. She also is lying in the bed. She appears to be jackson rovascular intact to her hand and her right lower extremity. She has no pain with palpation or crepi tation with the exception of her right hip and right wrist. The right wrist does have some swelling associated with it. Diagnostic Data: Review of x-ray of the wrist failed to demonstrate any overt fracture or dislocatio n; however, review of the right hip demonstrates a displaced femoral neck fracture. At this time, ri sks, benefits, and alternatives to operative methods of managing the right hip were discussed with e patient and the family. We also probably do need to obtain better imaging of the right wrist as he r complaints of pain are quite significant. There is a possible buckle fracture line, which is best seen on the AP and was not mentioned in the operative report. This would change our management. We will have her n.p.o. after 9 a.m. tomorrow. We will discuss with the hospitalist at this time for op erative intervention of the hip; however, I really think the any fracture of the wrist to be nondispl aced. Most likely, this will be treated in a short-arm cast and probably a forearm walker could be u sed if needed. We would limit closer towards arthroplasty being preferable over screw fixation because of this polytrauma. This was discussed with the patient 's family. /LYDIA Voice ID: [id number] Report ID: [id number]
[2018-05-25] MEDS: ATORVASTATIN 10 MG TAB PO SCH (20:17)
[2018-05-26] MEDS: HYDROMORPHONE HCL 1 MG/ML INJ IV PRN ×4 (00:37→12:28)
[2018-05-26] MEDS: PANTOPRAZOLE 40MG TABLET PO SCH (05:38)
[2018-05-26 05:43] VITALS: BMI 27.0
[2018-05-26 06:16] LABS: Magnesium 1.8 mg/dL (1.8-2.4); Phosphorus 3.1 mg/dL (2.5-4.9)
[2018-05-26] MEDS ORDERED: MAGNESIUM SULFATE 1 gm IVPB 1 GM/100 ML BAG IV ONE (07:00)
--- NOTE | 2018-05-26 07:35 | EKG ---
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
[2018-05-26] MEDS: NA CHLORIDE 0.9% 1,000 ML IV SCH ×6 (07:40→18:59)
[2018-05-26] MEDS ORDERED: HOME MED 1 EA UNK (Pravastatin Sodium [Pravastatin Sodium] 1 TAB) PO SCH (09:00)
[2018-05-26] MEDS: ENOXAPARIN 30 MG/0.3 ML SQ SCH (09:00)
[2018-05-26] MEDS ORDERED: HOME MED 1 EA UNK (Omeprazole [Prilosec] 40 MG) PO SCH (09:00)
--- NOTE | 2018-05-26 10:17 | P.PN ---
Subjective Date of Service: 05/26/18 Chief Complaint: Right femur fracture and right buckle fracture of the radius Subjective: No C/O voiced, Improving, NPO, Doing well, Other (Awaiting Surgery with Dr Amaro today at 4:30 for Hip Fracture) Review of Systems General: As per HPI Physical Examination - Vital Signs Temperature: 97.3 F Blood Pressure: 116/63 Pulse: 79 Respirations: 18 Pulse Ox (%): 95 - Physical Exam General: Alert, In no apparent distress HEENT: Atraumatic, PERRLA, EOMI Neck: Supple, JVD not distended Respiratory: Clear to auscultation bilaterally, Normal air movement Cardiovascular: Regular rate/rhythm, Normal S1 S2 Gastrointestinal: Normal bowel sounds, No tenderness Musculoskeletal: No tenderness Integumentary: No rashes Neurological: Normal speech, Normal tone, Normal affect Lymphatics: No axilla or inguinal lymphadenopathy - Studies Medications List Reviewed: Yes Assessment & Plan - Problems (Diagnosis) (1) Closed right hip fracture Onset Date: 05/26/18 Current Visit: Yes Status: Acute Plan: Right Hip Fracture Post Mechanical Fall -Orthopedic Consulted. Appreciate Reccs -Scheduled for Surgical Procedure today -NPO and IV fluids for now -Pain mgmt Qualifiers: Encounter type: initial encounter Qualified Code(s): S72.001A - Fracture of unspecified part of neck of right femur, initial encounter for closed fracture (2) Buckle fracture of right wrist Onset Date: 05/26/18 Current Visit: Yes Status: Acute Plan: Wrist Xray was inconculsive. CT wrist however consistent with Fracture of the distal radial metaphysis and Lunate is tilted dorsally with respect to the capitate which may indicate dorsal intercalated scaphoid instability -Orthopedic Consulted. Awaiting reccs in terms of the management for the wrist. 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 use Diabetes mellitus complication status: with other specified complication Qualified Code(s): E11.69 - Type 2 diabetes mellitus with other specified complication (4) Hyperlipidemia Onset Date: 05/26/18 Current Visit: Yes Status: Chronic Qualifiers: Hyperlipidemia type: unspecified Qualified Code(s): E78.5 - Hyperlipidemia , unspecified (5) Tobacco abuse Onset Date: 05/26/18 Current Visit: Yes Status: Chronic (6) Chronic pain disorder Current Visit: No Status: Chronic (7) GERD (gastroesophageal reflux disease) Current Visit: No Status: Suspected Qualifiers: Esophagitis presence: esophagitis presence not specified Qualified Code(s) : K21.9 - Gastro-esophageal reflux disease without esophagitis Discharge Plan: Other Plan to discharge in: Greater than 2 days - Code Status/Comfort Care Code Status Assessed: Yes Critical Care: No
[2018-05-26] MEDS ORDERED: FENTANYL CITR 100 MCG/2 ML ONE ×2 (16:06→17:31)
[2018-05-26] MEDS ORDERED: PROPOFOL 200 MG/20 ML VIAL IV ONE (16:06)
[2018-05-26] MEDS ORDERED: LIDOCAINE 2% MPF 5 ML VIAL ONE (16:06)
[2018-05-26] MEDS ORDERED: ROCURONIUM 50 MG/5 ML VIAL IV ONE (16:06)
[2018-05-26] MEDS: CEFAZOLIN/SWI 1gm 1 GM/10 ML SYR ONE ×2 (16:45→17:00)
[2018-05-26] MEDS ORDERED: TRANEXAMIC ACID 1,000 MG in NA CHLORIDE 0.9% 50 ML IV ONE ×4 (17:00)
[2018-05-26] MEDS ORDERED: Phenylephrine HCl 10 MG/ML 1 ML VIAL ONE (17:59)
[2018-05-26] MEDS ORDERED: KETOROLAC 30 MG/ML INJ ONE (18:10)
[2018-05-26] MEDS ORDERED: ONDANSETRON HCL 40 MG/20 ML VIAL ONE (18:10)
[2018-05-26] MEDS ORDERED: DEXAMETHASONE 10 MG/ML VIAL ONE (18:10)
[2018-05-26] MEDS ORDERED: GLYCOPYRROLATE 0.2 MG/ML SYR ONE ×2 (18:17)
[2018-05-26] MEDS ORDERED: NA CHLORIDE 0.9% 1,000 ML ONE (18:20)
--- NOTE | 2018-05-26 18:44 | P.BOP ---
Preoperative diagnosis: right femoral neck fracture, right distal radius fracture Postoperative diagnosis: same Primary procedure: right bipolar hemiarthoplasty Secondary procedure: casting right wrist Estimated blood loss: 100 ccs Anesthesia: General Complications: None Transferred to: Recovery Room Condition: Good
[2018-05-26] MEDS: MEPERIDINE HCL 50 MG/ML AMP ONE ×4 (18:57→19:12)
[2018-05-26] MEDS ORDERED: ONDANSETRON 4 MG/2 ML VIAL ONE (19:04)
[2018-05-26] MEDS ORDERED: MEPERIDINE HCL 50 MG/ML AMP ONE (19:23)
[2018-05-26] MEDS: ATORVASTATIN 10 MG TAB PO SCH (22:08)
[2018-05-26] MEDS ORDERED: CEFAZOLIN/SWI 1gm 1 GM/10 ML SYR ONE (23:02)
[2018-05-27] MEDS: HYDROMORPHONE HCL 1 MG/ML INJ IV PRN ×5 (00:32→20:12)
[2018-05-27] MEDS ORDERED: CEFAZOLIN/NS 1gm 1 GM/50 ML BAG IVPB SCH (01:00)
[2018-05-27] MEDS: NA CHLORIDE 0.9% 1,000 ML IV SCH ×3 (04:51→23:40)
[2018-05-27 05:13] LABS: BUN Blood Urea Nitrogen 11 mg/dL (7-18); Bicarbonate 26 mmol/L (21-32); Glucose Level 213 mg/dL (74-106); Potassium 4.5 mmol/L (3.5-5.1); Sodium Level 137 mmol/L (136-145)
--- NOTE | 2018-05-27 05:30 | OP ---
Date of Procedure: 05/26/2018 Surgeon: Zac Amaro MD Preoperative Diagnoses: 1.Right displaced femoral neck fracture. 2.Right nondisplaced distal radius fracture. Postoperative Diagnoses: 1.Right displaced femoral neck fracture. 2.Right nondisplaced distal radius fracture. Procedures: 1.Right hip bipolar hemiarthroplasty using a Biomet mini taper lock stem as well as a bipolar head n abdulaziz +3. 2.Casting of right distal radius. Estimated Blood Loss: 100 cc. Complications: There were no complications. Specimens: No pathology specimens sent. Indication For Operation: Ms. Ochoa is a 68-year-old female who fell injuring her right hip as well as right wrist. She was seen and examined in the emergency department where she had x-rays taken of her wrist, which were read out as no fracture, also x-rays of her hip which were read out as a femora l neck fracture. She has also had a CT scan to confirm a fracture which appears probable on the x-ra ys to demonstrate that she does have an essentially nondisplaced extra-articular distal radius fractu re. All risks, benefits, and alternatives to different methods of treating both injuries were discus sed with the patient as well as the family. The decision was made to select a weightbearing prosthes is versus screw fixation. Also, there is a consideration of bipolar versus total hip arthroplasty. After given the risks, benefits and alternatives, arrangements were made for a high demand stem with a bipolar bearing which could be converted to a total hip if it became necessary; however, would have less chance of dislocation as well as casting of the distal radius. Risks, benefits, and alternativ es of this procedure again discussed. The patient and family state they understand the things presen robinson and wished to proceed. Description Of Procedure: The patient was taken to the operating room and placed in supine position. General anesthesia was obtained by the staff. Following this, she was then placed left side down on the operating table with an axillary roll. All bony prominences were checked by Anesthesia. She wa s properly positioned using hip positioners. Following this, her right lower extremity is then prepp ed and draped in usual sterile fashion for arthroplasty. An incision made carefully through skin and soft tissues. Meticulous hemostasis being maintained using Bovie electrocautery. This leads down t o the fascia. A small stab wound was made in the fascia to ensure correct placement. The fascial in cision was then brought up near the tip of the greater trochanter where the fibers of gluteus omar were encountered. These were then spread using finger pressure. The sciatic nerve was then palpate d and protected throughout. Small amount of bursa and posterior fat was removed, care being taken to avoid injury to thigh nerve. Following this, the external rotators and capsule were then taken down carefully and tagged for later repair. The femoral neck itself was quite displaced, perhaps being m ore displaced than it appeared on the x-ray. Simple internal rotation of the hip completed the fractu re and a saw was then used to cut the femoral neck. All neck pieces were then removed. Attention wa s then turned to the ball. The ball was removed and sized using ring gauges. After this, the acetab ulum was cleared of any debris. Hemostasis was obtained. Attention was then turned with a box cutte r to establish lateralization of the femur. The broach was then used to a size 6. Size 6 appeared t o be a good fit and with torquing would not allow any rotation. Decision was made to stop. It was t hen trialed with a standard ball. It did have some shuck, although it was fairly stable, decision wa s made to move forward with +3, +3 was then trialed and it comes to full extension. It was stable to full flexion, full adduction, and internal rotation of 30 degrees to 40 degrees. Decision was made to proceed with this bearing. The trials were then removed. The wound was copiously irrigated with jet lavage. The final stem was then placed at the identical level as the trial. The final +3 ball w as then placed without difficulty, it was checked. It is found to be stable with full flexion, adduc tion and internal rotation of 45 degrees. The wound was again irrigated and the external rotators we re repaired back to the greater trochanter using bone tunnels. Wound was again irrigated. The fasci a closed in a watertight fashion using heavy Vicryl sutures, it was again irrigated. The skin was cl osed using interrupted Vicryl sutures, followed by esther. The patient was then placed in an Aquace l dressing. Attention was turned to the right upper extremity. The right upper extremity was then p laced into a well-padded short-arm cast and allowed to dry. The patient was then awakened and taken to recovery room in good condition. ISAIAS Voice ID: [id number] Report ID: [id number]
[2018-05-27] MEDS: PANTOPRAZOLE 40MG TABLET PO SCH (06:21)
[2018-05-27] MEDS ORDERED: CEFAZOLIN/SWI 1gm 1 GM/10 ML SYR IV SCH (09:00)
[2018-05-27] MEDS: HYDROCODONE/APAP 10/325 TAB PO PRN ×2 (10:31→16:30)
[2018-05-27] MEDS: ENOXAPARIN 30 MG/0.3 ML SQ SCH (20:12)
[2018-05-27] MEDS: ATORVASTATIN 10 MG TAB PO SCH (20:12)
--- NOTE | 2018-05-27 20:57 | PN ---
Date of Progress Note: 05/27/2018 Subjective: The patient is seen and examined. Chart reviewed and case discussed with RN. The patient still reports pain, mainly in her right upper extremity. Review of Systems: Negative except as above. Medications: List reviewed. Physical Examination: Vital Signs: Temperature 97, heart rate 95, blood pressure 101/55, respirations 18, O2 96% on room air. General: Awake, alert, oriented x3, in some mild distress. Elderly female, in pain. CV: S1, S2. No murmurs. Regular rate and rhythm. Peripheral pulses present. Respiratory: Clear to auscultation bilaterally. No wheezing. No stridor. No use of accessory muscles. Gastrointestinal: Abdomen is soft, nontender, nondistended. Positive bowel sounds. Extremities: No clubbing, cyanosis. Mild edema in the right lower extremity. Musculoskeletal: Right lower extremity; hip incision site clean, dry, and intact. Right upper extremity in a cast. Neurovascularly intact. Neuro: Cranial nerves 2 through 12 intact grossly. No focal neurological deficit. Moves all 4 extremities. Speech is normal. Laboratory Data: Sodium 137, potassium 4.5, chloride 106, CO2 26, BUN 11, creatinine 0.6, glucose 213, calcium 8.2, magnesium 2. Assessment And Plan: A 68-year-old female with: 1. Closed right hip fracture, initial encounter, status post open reduction and internal fixation, postoperative day #1. We will continue pain medications , PT eval, possible rehab referral. 2. Buckle fracture of right wrist, initial encounter. The patient has had cast placed by Dr. Amaro. 3. Diabetes mellitus type 2 without long-term use of insulin with hyperglycemia. We will continue sliding scale insulin. 4. Mixed hyperlipidemia. 5. Nicotine dependence with cigarette smoking. 6. Chronic pain disorder. 7. Gastroesophageal reflux disease. 8. Gastrointestinal and deep venous thrombosis prophylaxis addressed. Code status full SA/MODL Voice ID: [id number] Report ID: [id number] MTDD
[2018-05-28] MEDS: HYDROMORPHONE HCL 1 MG/ML INJ IV PRN ×6 (00:47→20:34)
[2018-05-28] MEDS: HYDROCODONE/APAP 10/325 TAB PO PRN ×2 (03:37→10:53)
[2018-05-28] MEDS: NA CHLORIDE 0.9% 1,000 ML IV SCH (05:05)
[2018-05-28 05:15] LABS: Absolute Lymphocytes (CBC) 1.2 K/uL (0.7-4.9); Absolute Monocytes 0.5 K/uL (0.1-1.3); Absolute Neutrophil 4.7 K/uL (1.8-8.0); Basophils % 0.4 % (0-1.3); Eosinophils % 1.1 % (0-4.4); Hematocrit 29.4 % (36.0-45.0); MCH 33.7 pg (27.0-35.0); MCV 95.7 fL (80-100); MPV 8.3 fL (7.6-11.3); Monocytes % 7.7 % (3.3-12.3); RBC Red Blood Cell Count 3.08 M/uL (3.86-4.86)
[2018-05-28] MEDS: PANTOPRAZOLE 40MG TABLET PO SCH (05:51)
--- NOTE | 2018-05-28 07:07 | PN ---
Date of Progress Note: 05/27/2018 The patient is seen today. Her dressing is clean, dry, and intact. EHL, tibialis anterior, plantar flexion are strong. Complaints of pain in the hip are mild only. Also with regard to her hand, she is complaining of stiffness and swelling of her fingers. Her cast does not appear to be too tight. She is encouraged movement of her finger. She says that she was out walking today and she did walk o ut of the room and apparently did fairly well with that. There is no CBC today. We will start Loven ox injections with CBC tomorrow. I would like to remove the Owens catheter as soon as Medicine deeme d it appropriate. Otherwise, I will see her most likely tomorrow and discharge planning should be in progress. ISAIAS Voice ID: [id number] Report ID: [id number]
[2018-05-28 08:10] VITALS: O2SAT 96
[2018-05-28] MEDS: ENOXAPARIN 30 MG/0.3 ML SQ SCH ×2 (08:41→20:35)
--- NOTE | 2018-05-28 14:52 | PN ---
Date of Progress Note: 05/28/2018 Ms. Ochoa is seen today. Her dressing is clean, dry, and intact. She has been afebrile. Her hemogl obin is 10.4, hematocrit is 29.4. She has had a Rehab consult. They are awaiting authorization. Co ntinue physical therapy, anticoagulation, and discharge planning is in progress. /LYDIA Voice ID: [id number] Report ID: [id number]
--- NOTE | 2018-05-28 14:52 | DS ---
Date of Discharge: 05/28/2018 Consultants: Dr. Amaro with Orthopedic Surgery. Procedures: On 05/26/2018, right hip bipolar hemiarthroplasty and casting of the right distal radius . Admitting Diagnoses: 1.Buckle fracture of the right wrist. 2.Closed hip fracture, right. 3.Diabetes mellitus type 2 without long-term use of insulin. 4.Hyperlipidemia. 5.Nicotine dependence with cigarette smoking. Discharge Diagnoses: 1.Closed right hip fracture, initial encounter, status post open reduction and internal fixation. 2.Buckle fracture of the right wrist, initial encounter, status post distal radius casting. 3.Diabetes mellitus type 2 without long-term use of insulin with hyperglycemia. 4.Mixed hyperlipidemia. 5.Nicotine dependence with cigarette smoking. 6.Chronic pain disorder. 7.Gastroesophageal reflux disease without esophagitis. Hospital Course: The patient is a 68-year-old female, comes in with fracture of the right femur and right buckle fracture of the radius after a fall. The patient was seen by Dr. Amaro and she unde rwent surgery as mentioned above. Her right radius was casted. She did well postoperatively. Her h emoglobin levels remained stable. The patient was started on Lovenox for deep venous thrombosis prop hylaxis. The patient's pain was controlled with medications. She was working well with Physical The rapy. She remained afebrile. The patient was then referred over to rehab for physical therapy. The patient was accepted and was discharged. The patient's other medical conditions including diabetes remained stable throughout the course of the hospital stay. The patient was counseled against abisai shirley. The patient was then discharged to inpatient rehab in stable condition. Activity: As per rehab. Diet: Diabetic. Followup: Follow up with primary care physician in 1-2 weeks. Follow up with Orthopedic surgeon, Dr Maribeth Amaro in 2 weeks. Return to ER for worsening condition. Physical Examination: General: Awake, alert, oriented x3, not in any acute distress. Elderly female. CV: S1 and S2. No murmurs. Peripheral pulses present. Respiratory: Moving air well bilaterally. Abdomen: Soft, nontender, nondistended. Positive bowel sounds. Extremities: No clubbing, cyanosis, or edema. Musculoskeletal: Right upper extremity casted. Right lower extremity incision site clean, dry, and intact. Neurologic: Nonfocal. Total time spent discharging the patient was 35 minutes. Code Status: Full. SA/MODL Voice ID: [id number] Report ID: [id number]
[2018-05-28] MEDS: ACETAMINOPHEN 500 MG TAB PO PRN (17:54)
--- NOTE | 2018-05-28 19:34 | RAD REPORT ---
EXAM DESCRIPTION: RAD - Chest Single View - 05/28/2018 7:26 pm CLINICAL HISTORY: Fever Chest pain. COMPARISON: Chest Single View dated 12/14/2017; Abdomen 1 View (KUB) dated 07/10/2016; CHEST PA AND LA T 2 VIEW dated 05/10/2015; CHEST PA AND LAT 2 VIEW dated 01/27/2015 FINDINGS: Portable technique limits examination quality. Small vague ill-defined opacity is present in the right lung base suspected represent atelectasis, de veloping pneumonia or aspiration. The lungs are otherwise clear. The heart is normal in size. No disp laced fractures.
[2018-05-28] MEDS ORDERED: POLYETHYL GLY 3350 17 GM/DOSE PO PRN (20:00)
[2018-05-28] MEDS: ATORVASTATIN 10 MG TAB PO SCH (20:35)
[2018-05-28] MEDS: DOCUSATE NA 100 MG CAP PO SCH (20:35)
[2018-05-28] MEDS ORDERED: Levofloxacin500mg IV 500 MG/100 ML BAG IV SCH (21:00)
[2018-05-29] MEDS: HYDROMORPHONE HCL 1 MG/ML INJ IV PRN ×3 (00:22→08:55)
[2018-05-29] MEDS: HYDROCODONE/APAP 10/325 TAB PO PRN ×2 (02:33→07:34)
[2018-05-29] MEDS: PANTOPRAZOLE 40MG TABLET PO SCH (05:47)
[2018-05-29 08:37] VITALS: BP 120/56; TEMP 98.1
[2018-05-29] MEDS: DOCUSATE NA 100 MG CAP PO SCH (08:53)
[2018-05-29] MEDS: ENOXAPARIN 30 MG/0.3 ML SQ SCH (08:53)
[2018-05-29] MEDS ORDERED: POLYETHYL GLY 3350 17 GM/DOSE PO SCH (09:00)
--- NOTE | 2018-05-29 11:37 | P.DS ---
Admission Date: 05/25/18 Discharge Date: 05/29/18 Primary Care Provider: Michael Taylor NP Disposition: TRANSFER TO INPATIENT REHAB Discharge Condition: FAIR Reason for Admission: Right femur fracture and right buckle fracture of the radius Consultations: Orthopedics-Dr. Amaro Procedures: Surgery: Date of Procedure: 05/26/2018 Surgeon: Zac Amaro MD Preoperative Diagnoses: 1. Right displaced femoral neck fracture. 2. Right nondisplaced distal radius fracture. Postoperative Diagnoses: 1. Right displaced femoral neck fracture. 2. Right nondisplaced distal radius fracture. Procedures: 1. Right hip bipolar hemiarthroplasty using a Biomet mini taper lock stem as well as a bipolar head neck +3. 2. Casting of right distal radius. Estimated Blood Loss: 100 cc. Complications: There were no complications. - Problems (1) GERD (gastroesophageal reflux disease) Current Visit: No Status: Chronic Qualifiers: Esophagitis presence: esophagitis presence not specified Qualified Code(s) : K21.9 - Gastro-esophageal reflux disease without esophagitis (2) Diabetes mellitus Onset Date: 05/26/18 Current Visit: Yes Status: Chronic Qualifiers: Diabetes mellitus type: type 2 Diabetes mellitus care home insulin use: without police commissioner use Diabetes mellitus complication status: with other specified complication Qualified Code(s): E11.69 - Type 2 diabetes mellitus with other specified complication (3) Hyperlipidemia Onset Date: 05/26/18 Current Visit: Yes Status: Chronic Qualifiers: Hyperlipidemia type: unspecified Qualified Code(s): E78.5 - Hyperlipidemia , unspecified (4) Tobacco abuse Onset Date: 05/26/18 Current Visit: Yes Status: Chronic (5) Chronic pain disorder Current Visit: No Status: Chronic (6) Buckle fracture of right wrist Onset Date: 05/26/18 Current Visit: Yes Status: Acute Qualifiers: Encounter type: initial encounter Qualified Code(s): S62.101A - Fracture of unspecified carpal bone, right wrist, initial encounter for closed fracture (7) Closed right hip fracture Onset Date: 05/26/18 Current Visit: Yes Status: Acute Qualifiers: Encounter type: initial encounter Qualified Code(s): S72.001A - Fracture of unspecified part of neck of right femur, initial encounter for closed fracture (8) Atelectasis Current Visit: Yes Status: Acute (9) Pneumonia Current Visit: Yes Status: Suspected Qualifiers: Pneumonia type: due to unspecified organism Laterality: right Lung location: lower lobe of lung Qualified Code(s): J18.1 - Lobar pneumonia, unspecified organism (10) Anemia Current Visit: Yes Status: Acute Qualifiers: Anemia type: other cause Brief History of Present Illness: 68-year-old female presented to emergency room after a fall. Patient found to have fracture of the right femur and right buckle fracture of the radius. Patient was admitted for further evaluation. Orthopedics was consulted. Hospital Course: During the course of her stay intervention was recommended by orthopedics. Hemoglobin remained stable. Open reduction and internal fixation was done to the right hip fracture. Distal radius casting was done to the buckle fracture of the right wrist. Patient tolerated procedure well. Patient improved with physical therapy. Patient requested inpatient rehab. Patient was accepted to go to inpatient rehab. She will continue her care there. Patient may continue with pain control medication. Patient continue with DVT prophylaxis. Patient will need follow up with orthopedics. During the course of her stay patient developed some atelectasis to the right base of the lung. Pneumonia was suspected. At discharge to inpatient rehab she will continue with Levaquin 500 mg daily for 7 days. Incentive spirometer is recommended. Patient with history of tobacco abuse. Tobacco cessation recommended. Patient may require nicotine patch. Patient has diabetes. This remained stable. She will continue with Glucophage 500 mg 1 pill daily. Recommendation is to maintain blood sugars less 140 fasting and less than 200 after meals. Further adjustment can be done by her PCP. Patient has GERD. She will continue with Prilosec 40 mg 1 pill once daily. Patient with chronic pain. She will continue with medication. Patient had mild anemia postoperatively. She will continue with multi vitamin daily. Vital Signs/Physical Exam: Temp Pulse Resp BP Pulse Ox 98.1 F 91 H 18 120/56 L 96 05/29/18 08:00 05/29/18 08:00 05/29/18 08:00 05/29/18 08:00 05/29/18 08:00 General: Alert, In no apparent distress, Oriented x3, Cooperative HEENT: Atraumatic Neck: Supple Respiratory: Clear to auscultation bilaterally, Normal air movement Cardiovascular: Normal pulses, Regular rate/rhythm Gastrointestinal: Normal bowel sounds, Soft and benign, Non-distended, No masses , No rebound, No guarding Musculoskeletal: No tenderness, No warmth Integumentary: No erythema, No warmth, No cyanosis Neurological: Normal speech, Normal strength at 5/5 x4 extr, Normal tone, Normal affect Laboratory Data at Discharge: WBC 6.6 K/uL (4.3-10.9) D 05/28/18 04:08 Hgb 10.4 g/dL (12.0-15.0) L D 05/28/18 04:08 Hct 29.4 % (36.0-45.0) L D 05/28/18 04:08 Plt Count 214 K/uL (152-406) D 05/28/18 04:08 PT 11.8 SECONDS (9.5-12.5) 05/25/18 04:20 INR 1.00 05/25/18 04:20 APTT 32.6 SECONDS (24.3-36.9) 05/25/18 04:20 Sodium 137 mmol/L (136-145) 05/27/18 04:23 Potassium 4.5 mmol/L (3.5-5.1) 05/27/18 04:23 BUN 11 mg/dL (7-18) 05/27/18 04:23 Creatinine 0.60 mg/dL (0.55-1.3) 05/27/18 04:23 Glucose 213 mg/dL (74-106) H 05/27/18 04:23 Phosphorus 3.1 mg/dL (2.5-4.9) 05/26/18 05:42 Magnesium 2.0 mg/dL (1.8-2.4) 05/27/18 04:23 Home Medications: Hydrocodone 7.5/APAP 325 [[place] 7.5/325 mg*] 0.5 tab PO TID 05/25/18 Metformin HCl [Glucophage*] 1 tab PO DAILY 05/25/18 Mv-Mn/Folic Acid/Calcium/Vit K [Women's 50 Plus Daily Formula] 1 tab PO DAILY Omeprazole [Prilosec] 40 mg PO DAILY 05/25/18 Pravastatin Sodium 1 tab PO DAILY 05/25/18 Docusate [Colace Cap*] 100 mg PO BID cap 05/28/18 Enoxaparin Sodium [Lovenox 30 MG INJ*] 30 mg SQ Q12HR syr 05/28/18 Polyethyl Gly 3350 [Glycolax*] 17 gm PO DAILY udbot 05/28/18 Levofloxacin [Levaquin] 500 mg PO DAILY #7 tablet 05/29/18 New Medications: Levofloxacin [Levaquin] 500 mg PO DAILY #7 tablet Patient Discharge Instructions: 1. Patient will need a follow up with her PCP in 2-4 weeks to monitor her progress. 2. Patient presented to the ER after a fall. Patient found to have right hip fracture and right wrist fracture. Open reduction and internal fixation was done to the right hip fracture. Distal radius casting was done to the buckle fracture of the right wrist. Patient tolerated procedure well. Patient improved with physical therapy. Patient has been accepted to inpatient rehab. Patient will continue with inpatient rehab. Patient may continue with pain control medication. Patient will continue continue with DVT prophylaxis. Patient will need follow up with orthopedics in 1-2 weeks. 3. During the course of her stay patient developed some atelectasis to the right base of the lung. Pneumonia was suspected. At discharge to inpatient rehab she will continue with Levaquin 500 mg daily for 7 days. Incentive spirometer is recommended. Patient with history of tobacco abuse. Tobacco cessation recommended. Patient may require nicotine patch. 4. Patient has diabetes. This remained stable. She will continue with Glucophage 500 mg 1 pill daily. Recommendation is to maintain blood sugars less 140 fasting and less than 200 after meals. Further adjustment can be done by her PCP. 5. Patient has GERD. She will continue with Prilosec 40 mg 1 pill once daily. 6. Patient with chronic pain. She will continue with medication. 7. Patient has hyperlipidemia. She will continue with her medication. Diet: ADA Activity: as per rehab Time spent managing pt's care (in minutes): 55
== END 2018-05-29 11:28 | DRG 469 ==
LOC: ER 03:02 → ERHOLD 04:30 → 4TH 06:35
PROVIDERS: ADMIT Hospitalist; ATTEND Family Medicine
PROC: 2W3CX1Z Immobilization of Right Lower Arm using Splint (ICD-10-PCS; 2018-05-25)
PROC: 2W3CX2Z Immobilization of Right Lower Arm using Cast (ICD-10-PCS; 2018-05-26)
PROC: 0SRR0JZ Replacement of Right Hip Joint, Femoral Surface with Synthetic Substitute, Open Approach (ICD-10-PCS; principal; 2018-05-26 16:30)
DX: S72.011A Unspecified intracapsular fracture of right femur, initial encounter for closed fracture (principal); J18.9 Pneumonia, unspecified organism; S52.591A Other fractures of lower end of right radius, initial encounter for closed fracture; G89.29 Other chronic pain; K21.9 Gastro-esophageal reflux disease without esophagitis; E11.65 Type 2 diabetes mellitus with hyperglycemia; N28.1 Cyst of kidney, acquired; D64.9 Anemia, unspecified; F17.210 Nicotine dependence, cigarettes, uncomplicated; E78.2 Mixed hyperlipidemia; W18.09XA Striking against other object with subsequent fall, initial encounter; Y92.003 Bedroom of unspecified non-institutional (private) residence as the place of occurrence of the external cause; Z88.5 Allergy status to narcotic agent; Z79.84 Long term (current) use of oral hypoglycemic drugs
CPT/HCPCS: 36415; 70450; 71045; 72125; 72170; 73200; 80048; 80320; 81003; 82962; 83735; 84100; 85025; 85610; 85730; 86850; 86900; 86901; 87086; 87088; 88305; 88311; 93005; 96372; 96374; 97163; 99285; J0690; J1100; J1170; J1650; J2175; J2370; J2405; J3010; J3475; J7030

== ENCOUNTER 2018-05-28 15:52 | Inpatient (IN) | payer BC, OTHER ==
--- NOTE | 2018-05-28 16:43 | R.PREADM ---
SCREENING DATE AND TIME 05/28/2018 16:05 (CDT) ANTICIPATED REHAB ADMISSION DATE 05/30/2018 REFERRING FACILITY [facility] REFERRAL DATE AND TIME 05/28/2018 16:05 (CDT) REFERRAL ROOM# 403 ACUTE ADMIT DATE 05/25/2018 Previous Rehabilitation(s): No. REFERRING PHYSICIAN Roseline Coughlin REHAB FACILITY [facility] CLINICAL LIAISON Tato Schulte PHYSICIAN REVIEWER Dr. Luis Torres M.D. MR# [id number] NAME SIDDHARTHA WILDER [address]ESS [address] [facility] [facility] [facility] [place] [address] DATE OF 1950 AGE 68 N# [id number] GENDER female MARITAL STATUS RACE ADMIT FROM 02 - [facility] PRE-HOSPITAL LIVING SETTING 01 - Home (private home/apt. board/care, assisted living, penitentiary, transitional living) HOME TYPE AND DETAILS Type of home: single family house # of levels in the residence: 1 # of steps within the residence: 0 # of steps to enter the residence: 3 PRE-HOSPITAL LIVING WITH Family/Relatives FAMILY SUPPORT Yes PRIMARY FAMILY CONTACT NAME Suresh Wilder PRIMARY FAMILY CONTACT PHONE PRIMARY FAMILY CONTACT RELATIONSHIP Spouse PHONE PRIMARY FAMILY CONTACT ON ADM.? no IS PRIMARY FAMILY CONTACT AUTH. REP.? no 1ST EMERGENCY CONTACT Suresh Wilder 1ST CONTACT PHONE 1ST CONTACT RELATIONSHIP Spouse PHONE 1ST CONTACT ON ADM. no IS 1ST CONTACT AUTH. REP.? no PHONE 2ND CONTACT ON ADM.? no PATIENT EMPLOYMENT STATUS Retired (for age) PATIENT EMPLOYER No Employer PAYOR INFORMATION: 1ST PAYOR NAME [facility] 1ST PAYOR PHONE [phone] 1ST PAYOR INJURY/ILLNESS DUE TO ACCIDENT? No ANOTHER LIBERTARIAN RESPONSIBLE? No PRIMARY REHAB/ACUTE DIAGNOSIS: Right Displaced femoral Neck Fracture Right Nondisplaced Distal Radius Fracture ONSET DATE 05/25/2018 REHAB IMPAIRMENT CATEGORY (YAQUELIN): 09 Orthopaedic (Ortho) does NOT meet 60% rule AFFECTED EXTREMITIES: RLE, and RUE PRIMARY DIAGNOSIS-RELATED SURGERIES: Right hip bipolar hemiarthroplasty using a Biomet mini taper lock stem as well as a bipolar head neck +3 Casting of Right distal radius COMORBID REHAB/ACUTE DIAGNOSES: - Non-Tiered Type 2 diabetes mellitus with diabetic neuropathy, unspecified (E11.40) - N/A Hyperlipidemia Renal cyst GERD Herniated disk INTERVENTIONS: - GERD Altered diet Elevation of head of bed Medications Nausea/vomiting Nighttime food/fluid restrictions Nutrition RISK FOR COMPLICATIONS: - GERD Alteration in sleep Aspiration Dehydration Malnutrition Pain SUMMARY OF ACUTE HOSPITALIZATION: Pt. is a 68 yo Right-handed female. On 05/25/2018 she was admitted to [facility] with diagnosis Right Displaced fem oral Neck Fracture. Her impairment category is Orthopaedic Disorders 08 - Unilateral Hip Fracture (08.11). Pre-morbidly, Pt. was independent/mod-I in Social Cognition, Self-Care, Locomotion, Sphincter Control , Transfers Control, and Communication; and she had good Sphincter Control. Currently, she has deficits of Balance, Self-Care, Locomotion, Endurance, Safety Awareness, and Trans fers Control. Pt. is now referred to [facility] for acute in-patient rehabilitation in order to maximize patient's functional independence in activities of daily living, strength, ROM, and mobi lity. Patient has realistic goal of being discharged at assistance level 6-Tony to reside at Home with Fam avni/Relatives. PAST MEDICAL HISTORY GERD Herniated disk Hyperlipidemia Renal cyst Type 2 diabetes mellitus with diabetic neuropathy, unspecified (E11.40) Chronic back pain PAST SURGICAL HISTORY: Hysterectomy Breast augmentation C- section MEDICATION ALLERGIES: Morphine ENVIRONMENTAL ALLERGIES: None Known - Substance Allergies None Known - Other Allergies None Known CODE STATUS: Full code WEIGHT/HEIGHT/BMI: WEIGHT 138 lbs HEIGHT 5' BMI 26.9 DIET: - Diet Type Regular - Diet - Solid Texture Regular - Diet - Liquid Texture Regular - Tube Feed N/A SKIN DIAGRAM: Incision on Right upper leg; extent - small; stage - NS(Not Stageable). Treatment - Per Physician's O rders. REVIEW OF SYSTEMS: - Gen Alert and awake Lying in bed No apparent distress Oriented to: person, time, and place - Vital Signs Temperature: 97.9 F SBP/DBP: 94/46 Pulse: 94 Resp: 18 Vital signs stable, afebrile - CVS RRR VITAL SIGNS Temperature: 97.9 F SBP/DBP: 94/46 Pulse: 94 Resp: 18 Vital signs stable, afebrile CURRENT SPHINCTER CONTROL: Pre-hospital bladder status: continent # of bladder accidents in the last 7 days prior to screenin Pre-hospital bowel status: continent # of bowel accidents in the last 7 days prior to screenin Last Bowel Movement Date: DETAILED CURRENT FUNCTIONAL STATUS: - Bladder accident frequency: Ind - No accidents in the past 7 days - Bowel accident frequency: Ind - No accidents in the past 7 days - Walking score based on distance walked: 3(>=150ft) - Wheelchair score based on distance traveled: 0(N/A) FUNCTIONAL STATUS: - Self-Care A. Eating Ind sup B. Grooming Ind sup C. Bathing Ind Key D. Dressing - Upper Ind Key E. Dressing - Lower Ind modA F. Toileting Ind modA - Sphincter Control G: Bladder control Ind Ind H: Bowel control Ind Ind - Transfers Control I. Bed/Chair/Wheelchair Ind modA J. Toilet Ind modA K. Tub/Shower Ind ADNO - Locomotion L. Walk/Wheelchair (B) Ind Key M. Stairs Ind ADNO - Communication N. Comprehension (B) Ind Ind O. Expression (B) Ind Ind - Social Cognition P. Social Interaction Ind Ind Q. Problem Solving Ind Ind R. Memory Ind Ind - Endurance Fair - Balance Fair - Safety Awareness Fair CURRENT FUNC. DEFICITS: Balance, Self-Care, Locomotion, Endurance, Safety Awareness, and Transfers Control THERAPY NOTES FROM ACUTE CARE: Attached. SPECIAL NEEDS: - Safety Concerns Skin breakdown precautions needed due to skin breakdown risk PRECAUTIONS: - Anterior Hip Precaution No abduction No active extension No adduction across midline No external rotation No hip flexion >90 degrees No internal rotation - Posterior Hip Precaution No adduction across midline No external rotation No hip flexion >90 degrees No internal rotation No wheel chair propulsion - Weight Bearing Precaution WBAT right LE NWB right wrist PATIENT NEEDS ACTIVE AND ONGOING THERAPEUTIC INTERVENTION OF MULTIPLE THERAPY DISCIPLINES, INCLUDING: - Occupational Therapy Evaluate and Treat. - Physical Therapy Evaluate and Treat. PATIENT NEEDS CLOSE MEDICAL SUPERVISION BY A REHABILITATION PHYSICIAN FOR: Bowel and Bladder Management Coordination of Treatment Team Diabetes Management Medical and Co-Morbidity Management Wound Care Pain Management DVT Management PATIENT REQUIRES 24X7 REHAB NURSING FOR MEDICAL AND FUNCTIONAL MGT. OF THE FOLLOWING DEFICITS: ADL's Ambulation Bowel and Bladder Management Communication Disease Management Medication Management Patient/Family Education Providing Safe Environment Skin Integrity Transfers Pain Management PATIENT REQUIRES INTENSIVE, COORDINATED INTERDISCIPLINARY APPROACH TO REHAB: Arranging Home Equipment/Services Discharge Planning Family Intervention/Training Circuit Court Judge/Case Management PATIENT REHAB POTENTIAL: Expected level of measurable improvement will be of a practical value to patient's functional capacit y or adaptations to impairments Has a viable Discharge Plan Medically appropriate; condition is sufficiently stable to participate in intensive rehab program Patient is able and expected to receive 3 hours of individualized therapy daily on at least 5 of ever y 7 days Patient's prognosis for significant practical improvement within a reasonable period of time appears Good DISCHARGE PLAN: - Estimated Length of Stay (days) 12. - Consensus on plan Discharge plan has been discussed with primary caregiver. Patient/Family is in agreement with the fredi n. Primary caregiver is in agreement with the plan. - Patient/Family Goals Return home with assistance. - Planned Living Setting Upon Discharge Home, to live with Family/Relatives. RECOMMENDED CARE LEVEL: IRF RECOMMENDATION DETAILS: Recommended Admission to Comprehensive Rehabilitation Program to Increase Functional [place] SCREENER'S COMPLETENESS CONFIRMATION: - Screening Confirmation The patient data collection on this preadmission screening form is finished PHYSICIANS REVIEW AND ADMISSION DETERMINATION Admit - Based on my review of the Pre-Admission Screening results, in my medical judgment and experie nce, I concur with the findings and recommend admission to [facility], as this patient requires an IRF level of care. SIGNATURE PANEL: Clinical Liaison - [electronically] signed by Tato Schulte on 05/28/2018 at 16:26 (CDT) Physician Reviewer - [electronically] signed by Dr. Luis Torres M.D. on 05/28/2018 at 16:42 (CDT )
--- OUTSIDE RECORDS SUMMARY | 2018-05-29 11:27 | XMS REPORT | Clinical Summary ---
:1950 Author Organization [facility] Address [address] [place] [id number] Care Team Providers Name Role Phone Vita [...] INFLUENZA VACCINE 05/21/2018 Results Not on fileafter 05/28/2017 Insurance Payer Benefit Plan / Group Subscriber ID Type Phone Address BCBS BCBS CHOICE PPO/F[employer]ERAL EMPL PPO xxxxxxxxxxxx PPO MEDICARE MEDICARE PART A AND B xxxxxxxxxx Medicare [place], [place] [phone] [place] [address]
[2018-05-29 11:44] VITALS: BMI 25.6
[2018-05-29] MEDS: HYDROCODONE/APAP 5/325 MG TAB PO PRN ×2 (12:59→19:05)
[2018-05-29] MEDS ORDERED: GLUCAGON 1 MG/VIAL IM PRN (13:22)
[2018-05-29] MEDS ORDERED: D50W 25 GM/50 ML SYRINGE IV PRN (13:22)
[2018-05-29] MEDS ORDERED: DOCUSATE NA/SENNA CONC 1 TAB PO PRN (14:18)
[2018-05-29] MEDS: levoFLOXacin 500 MG TAB PO SCH (14:45)
[2018-05-29] MEDS: TRAMADOL HCL 50 MG TAB PO PRN ×2 (16:06→23:15)
[2018-05-29] MEDS: INSULIN -REGULAR HUMAN 50 UNIT/0.5 ML ML SQ SCH ×2 (16:30→20:51)
--- NOTE | 2018-05-29 18:25 | R.HP ---
FACILITY: [facility] ENCOUNTER DATE AND TIME: 05/29/2018 18:16 (CDT) MR#: [id number] NAME SIDDHARTHA WILDER ADDRESS: [facility] [address] CITY: [place] STATE: [place] [id number] PHONE: DATE OF : 1950 AGE: 68 SSN# [id number] GENDER: Female DEXTERITY Right-handed MARITAL STATUS RACE PRE-HOSPITAL LIVING SETTING 01 - Home (private home/apt. board/care, assisted living, nursing home, transitional living) PRE-HOSPITAL LIVING WITH Family/Relatives ENCOUNTER PHYSICIAN: Dr. Luis Torres M.D. REFERRING DOCTOR: ishan Coughlin DATE OF ADMISSION: 05/29/2018 11:23 (CDT) REFERRING FACILITY [facility] HOME TYPE AND DETAILS: Type of home: single family house # of levels in the residence: 1 # of steps within the residence: 0 # of steps to enter the residence: 3 ADMISSION DIAGNOSIS: Right Displaced femoral Neck Fracture Right Nondisplaced Distal Radius Fracture ONSET DATE: 05/25/2018 PRIMARY DIAGNOSIS-RELATED SURGERIES: Right hip bipolar hemiarthroplasty using a Biomet mini taper lock stem as well as a bipolar head neck +3 Casting of Right distal radius SECONDARY/COMORBID DIAGNOSES (TIERED): - Non-Tiered Type 2 diabetes mellitus with diabetic neuropathy, unspecified (E11.40) - N/A Hyperlipidemia Renal cyst GERD Herniated disk HISTORY OF PRESENT ILLNESS (HPI): Pt. is a 68 yo Right-handed female. On 05/25/2018 she was admitted to [facility] with diagnosis Right Displaced fem oral Neck Fracture. Her impairment category is Orthopaedic Disorders 08 - Unilateral Hip Fracture (08.11). Pre-morbidly, Pt. was independent/mod-I in Social Cognition, Self-Care, Locomotion, Sphincter Control , Transfers Control, and Communication; and she had good Sphincter Control. Currently, she has deficits of Balance, Self-Care, Locomotion, Endurance, Safety Awareness, and Trans fers Control. Pt. is now referred to [facility] for acute in-patient rehabilitation in order to maximize patient's functional independence in activities of daily living, strength, ROM, and mobi lity. Patient has realistic goal of being discharged at assistance level 6-Tony to reside at Home with Fam avni/Relatives. MEDICATION ALLERGIES: Morphine ENVIRONMENTAL ALLERGIES: None Known - Substance Allergies None Known - Other Allergies None Known PAST MEDICAL HISTORY: GERD Herniated disk Hyperlipidemia Renal cyst Type 2 diabetes mellitus with diabetic neuropathy, unspecified (E11.40) Chronic back pain PAST SURGICAL HISTORY: Hysterectomy Breast augmentation C- section FAMILY HISTORY: Family history is not contributory. SOCIAL HISTORY: - Home Living Family/Relatives REVIEW OF SYSTEMS: - Gen No Chills No Fatigue No Fever - Eyes No Double Vision No itchiness - ENMT No Difficulty Swallowing - CVS No Chest Discomfort No Chest Pain No Fatigue No Weight Gain - Resp No Cough No Shortness of Breath - GI Continent No Abdominal Pain No Constipation No Diarrhea - Continent No Kidney Pain No Painful Urination No Urinary Urgency - MSK No Joint Pain No Muscle Cramps No Stiffness - Skin No Itching No Rash No Suspicious Lesions - Neuro No Coordination Difficulty No Difficulty with Concentration No Memory Loss No Seizures No Weakness - Psych No Anxiety No Depression No HIV Exposure No Persistent Infections No Seasonal Allergies - Endo No Cold/Heat Intolerance No Excessive Hunger No Excessive Thirst No Excessive Urination PHYSICAL EXAM - Gen Alert and awake Lying in bed No apparent distress Oriented to: person, time, and place - Skin No skin breakdown. Normacephalic - Eyes No abnormalities - ENMT No abnormalities - Neck No abnormalities - CVS RRR - Chest Clear - Abd Soft - GI Non distended Deferred - No abnormalities - Ext No significant edema - MSK 4+/5 weakness in right upper and lower extremity. - Neuro 4/5 strength right upper and lower extremity. - Psych No abnormalities VITAL SIGNS Temperature: 97.9 F SBP/DBP: 104/62 Pulse: 87 Resp: 16 NURSING: - Shower allowing shower - Lab Results blood Sugar Check ACHS - Skin care per protocol PRECAUTIONS: - Anterior Hip Precaution No abduction No active extension No adduction across midline No external rotation No hip flexion >90 degrees No internal rotation - Posterior Hip Precaution No adduction across midline No external rotation No hip flexion >90 degrees No internal rotation No wheel chair propulsion - Weight Bearing Precaution WBAT right LE NWB right wrist ACTIVITIES OOB only with supervision FUNCTIONAL STATUS: - Self-Care A. Eating Ind sup B. Grooming Ind sup C. Bathing Ind Key D. Dressing - Upper Ind Key E. Dressing - Lower Ind modA F. Toileting Ind modA - Sphincter Control G: Bladder control Ind Ind H: Bowel control Ind Ind - Transfers Control I. Bed/Chair/Wheelchair Ind modA J. Toilet Ind modA K. Tub/Shower Ind ADNO - Locomotion L. Walk/Wheelchair (B) Ind Key M. Stairs Ind ADNO - Communication N. Comprehension (B) Ind Ind O. Expression (B) Ind Ind - Social Cognition P. Social Interaction Ind Ind Q. Problem Solving Ind Ind R. Memory Ind Ind - Endurance Fair - Balance Fair - Safety Awareness Fair CURRENT FUNC. DEFICITS: Balance, Self-Care, Locomotion, Endurance, Safety Awareness, and Transfers Control ASSESSMENT: Pt. is a 68 yo Right-handed female.On 05/25/2018 she was admitted to [facility] with diagnosis Right Displaced femoral Neck Fracture.Her impairment category is Orthopaedic Di sorders 08 - Unilateral Hip Fracture (08.).Pre-morbidly, Pt. was independent/mod-I in Social Cogni tion, Self-Care, Locomotion, Sphincter Control, Transfers Control, and Communication; and she had goo d Sphincter Control.Currently, she has deficits of Balance, Self-Care, Locomotion, Endurance, Safety Awareness, and Transfers Control.Pt. is now referred to [facility] for acute i n-patient rehabilitation in order to maximize patient's functional independence in activities of lui y living, strength, ROM, and mobility.- Rehab Goal Patient has realistic goal of being discharged at assistance level 6-Tony to reside at Home with Fam avni/Relatives. REHAB PLAN: - Physical Therapy Decreased range of motion - to improve, our physical therapists will perform initial evaluation of pt 's status upon admission and devise an individualized program for increasing patient's Range of Motio n. Gait dysfunction - to improve, our physical therapists will perform initial evaluation of pt's status upon admission and devise an individualized program for Gait Training, and Wheel Chair mobility Inability to transfer - to improve, our physical therapists will perform initial evaluation of pt's s tatus upon admission and devise an individualized program for Bed mobility Need for home safety evaluation - to improve, our physical therapists will perform initial evaluation of pt's status upon admission and devise an individualized program for Home Evaluation Need in caregiver upon discharge - to improve, our physical therapists will perform initial evaluatio n of pt's status upon admission and devise an individualized program for Caregiver Training New precaution - to improve, our physical therapists will perform initial evaluation of pt's status u bob admission and devise an individualized program for Patient precaution education Edema - to improve, our physical therapists will perform initial evaluation of pt's status upon admi ssion and devise an individualized program for Elevation Training, and Lymphedema Therapy Poor balance - to improve, our physical therapists will perform initial evaluation of pt's status upo n admission and devise an individualized program for Balance Training Poor endurance - to improve, our physical therapists will perform initial evaluation of pt's status u bob admission and devise an individualized program for Endurance Training Weakness - to improve, our physical therapists will perform initial evaluation of pt's status upon ad mission and devise an individualized program for Aquatic Therapy, Neuromuscular Reeducation, and Stre ngthening Achieving independence - to improve, our physical therapists will perform initial evaluation of pt's status upon admission and devise an individualized program for Community Reintegration Activities - Occupational Therapy ADL deficits - to improve, our occupation therapists will perform initial evaluation of pt's status u bob admission and devise an individualized program for Bathing, Bed mobility, Community Reintegration , Cooking, Dressing, Eating, Fine Motor Skills, Grooming, Homemaking, Kitchen Mobility, Laundry, Yancy ent Education, Safety Awareness, Splinting - Positioning, Transfers(Toilet, Tub, Shower), and Wheel C hair Management Need for floor care specialist - to improve, our occupation therapists will perform initial evaluation of pt's s tatus upon admission and devise an individualized program for Caregiver Training Weakness - to improve, our occupation therapists will perform initial evaluation of pt's status upon admission and devise an individualized program for Aquatic Therapy, Balance, Endurance, UE ROM, and U E strengthening MEDICAL PLAN: - Anterior Hip Precaution No abduction No active extension No adduction across midline No external rotation No hip flexion >90 degrees No internal rotation - Diet - Liquid Texture Start Regular - Tube Feed Start N/A - Diet Type Start Regular - Posterior Hip Precaution No adduction across midline No external rotation No hip flexion >90 degrees No internal rotation No wheel chair propulsion - Lab Results blood Sugar Check ACHS - Weight Bearing Precaution WBAT right LE NWB right wrist - Skin care per protocol - Diet - Solid Texture Regular - Shower shower DISCHARGE PLAN: - Estimated Length of Stay (days) 12. - Consensus on plan Discharge plan has been discussed with primary caregiver. Patient/Family is in agreement with the fredi n. Primary caregiver is in agreement with the plan. - Patient/Family Goals Return home with assistance. - Planned Living Setting Upon Discharge Home, to live with Family/Relatives. SIGNATURE PANEL: (CDT)
--- NOTE | 2018-05-29 18:27 | PAPE ---
PATIENT: [facility] MR# [id number] REFERRING DOCTOR ishan Coughlin EVALUATION DATE AND TIME 05/29/2018 18:25 (CDT) NAME SIDDHARTHA WILDER DATE OF 1950 AGE 68 PHONE N# [id number] GENDER female EVALUATING PHYSICIAN Dr. Luis Torres M.D. ADMISSION DIAGNOSIS: Right Displaced femoral Neck Fracture Right Nondisplaced Distal Radius Fracture ONSET DATE 05/25/2018 SECONDARY/COMORBID DIAGNOSES TIERED: - Non-Tiered Type 2 diabetes mellitus with diabetic neuropathy, unspecified (E11.40) - N/A Hyperlipidemia Renal cyst GERD Herniated disk POST-ADMISSION FUNCTIONAL/MEDICAL STATUS: - Bladder Same accident frequency: Ind - No accidents in the past 7 days - Bowel Same accident frequency: Ind - No accidents in the past 7 days - Walking Same score based on distance walked: 3(>=150ft) - Wheelchair Same score based on distance traveled: 0(N/A) STATUS CHANGE EVALUATION: No change in Functional or Medical Status is identified compared with Pre-Admission screening. PATIENT NEEDS CLOSE MEDICAL SUPERVISION BY A REHABILITATION PHYSICIAN FOR: Bowel and Bladder Management Coordination of Treatment Team Diabetes Management Medical and Co-Morbidity Management Wound Care Pain Management DVT Management PATIENT REQUIRES 24X7 REHAB NURSING FOR MEDICAL AND FUNCTIONAL MGT. OF THE FOLLOWING DEFICITS: ADL's Ambulation Bowel and Bladder Management Communication Disease Management Medication Management Patient/Family Education Providing Safe Environment Skin Integrity Transfers Pain Management PATIENT REQUIRES INTENSIVE, COORDINATED INTERDISCIPLINARY APPROACH TO REHAB: Arranging Home Equipment/Services Discharge Planning Family Intervention/Training Steam Shovel Oiler/Case Management LIST OF IDENTIFIED AND POTENTIAL PROBLEMS: Alteration in leisure activities Bladder, Incontinence Bowel, Incontinence Diabetes, Hyperglycemia/hypoglycemia Issues Infection, Actual or Potential Mobility Impaired Pain, Alteration in Comfort Self Care Deficit Skin Integrity, Actual or Potential Urinary Tract Infection (UTI), Actual or Potential RISK FOR COMPLICATIONS - GERD Alteration in sleep. Aspiration. Dehydration. Malnutrition. Pain. INTERVENTIONS - GERD Altered diet. Elevation of head of bed. Medications. Nausea/vomiting. Nighttime food/fluid restrictio ns. Nutrition. PATIENT COULD BE AT RISK FOR COMPLICATIONS FROM ADVERSE MEDICAL CONDITIONS DUE TO HIS/HER COMORBIDITI ES AND THE RIGORS OF THE INTENSIVE REHABILLITATION PROGRAM. METHODS OR INTERVENTIONS TO AVOID COMPLIC ATIONS INCLUDE: - Deep Vein Thrombosis (DVT) Prophylaxis therapy for prevention . Sequential Compression Device (SCD). TE D Hose. - Bleeding Assess lab values and manage abnormalities. Nursing to teach precautions for anti-coagulation therapy . Wound to be assessed every shift. - Infection Clinical staff to assess and manage the signs and symptoms of infection including fever, redness, war mth, etc. - Urinary Tract Infection - Falls Patient will be evaluated for Fall Precautions and will be placed on Fall Precautions as indicated pe r protocol. - Skin Breakdown Nursing will assess skin daily using assessment tool and will place on Skin Breakdown Precautions as indicated per protocol. - Pain Clinical staff may employ non-medication methods such as massage, distraction, decrease stimulus, etc . as needed. Clinical staff will assess patient's pain level every shift per protocol to assess and e nsure pain management effectiveness. Medications will be given and the pain level re-assessed. PRELIMINARY PLAN OF CARE: - Physical Therapy Patient needs Physical Therapy for a daily minimum of 1.5 hours at least 5 out of 7 days, to improve: Mobility, Strengthening, Transfers, Stretching, ROM, Endurance, Ability to manage stairs, Gait, and Balance. - Rehabilitation Nursing Patient requires 24x7 Rehabilitation Nursing for: Pain Issues, Identifying and preventing risk factor s, Monitoring and reporting current medical conditions, Assisting with ambulation and transfer, Tyree ting with all ADL-s, Teaching patients about disease process and medications, Family teaching, Provid ing safe environment, Bowel and Bladder Issues, Skin Integrity, and Medication Management. Patient needs Steam Shovel Oiler and/or Case Management for: Discharge Planning, Arranging Home Equipmen t or Services, and Family Interventions. - Dietary and Nutrition Services Patient needs Dietary and Nutrition Services for: Adequate Nutrition, Nutritional Supplements, and Nu tritional Education. - Occupational Therapy Patient needs Occupational Therapy for a daily minimum of 1.5 hours at least 5 out of 7 days, to impr ove Activities of Daily Living, including: Eating, Grooming, Bathing, Dressing, Toileting, Toilet Tra nsfers, Community Reintegration, Higher functional activities, Adaptive Equipment, Splinting, Househo ld Tasks, and Other activities as determined. POTENTIAL FUNCTIONAL GOALS FOR PATIENT TO ACHIEVE BY DISCHARGE: - Safety Precaution Patient will remain free from falls or injury at time of discharge. - Bed Mobility Patient will perform bed mobility at 4-Key level of assistance. - Transfers Patient will complete transfers from bed to chair at 4-Key level of assistance. - Mobility Patient will ambulate 150 ft with 4-Key level of assistance with RW. PATIENT REHAB POTENTIAL Expected level of measurable improvement will be of a practical value to patient's functional capacit y or adaptations to impairments Has a viable Discharge Plan Medically appropriate; condition is sufficiently stable to participate in intensive rehab program Patient is able and expected to receive 3 hours of individualized therapy daily on at least 5 of ever y 7 days Patient's prognosis for significant practical improvement within a reasonable period of time appears Good DISCHARGE PLAN: - Estimated Length of Stay (days) 12. - Consensus on plan Discharge plan has been discussed with primary caregiver. Patient/Family is in agreement with the fredi n. Primary caregiver is in agreement with the plan. - Patient/Family Goals Return home with assistance. - Planned Living Setting Upon Discharge Home, to live with Family/Relatives. CONCLUSION ON REHABILITATION NECESSITY: I have evaluated patient's pre-admission functional status and, comparing it to the patient's post-ad mission functional status now, I conclude that the pre-admission assessment was accurate. Patient's c ondition on admission supports the medical necessity of admission to IRF. It is safe to proceed with patient's therapy program. SIGNATURE PANEL: (CDT)
[2018-05-29] MEDS: GABAPENTIN 300 MG CAP PO SCH (19:06)
[2018-05-29] MEDS: DOCUSATE NA 100 MG CAP PO SCH (19:06)
[2018-05-29] MEDS: PROMOD 30 ML DOSE PO SCH (19:07)
[2018-05-29] MEDS ORDERED: GABAPENTIN 100 MG CAP PO SCH (20:00)
[2018-05-29] MEDS: ATORVASTATIN 10 MG TAB PO SCH (20:16)
[2018-05-29 21:51] LABS: Urine Appearance CLEAR; Urine Bilirubin NEGATIVE (NEG); Urine Blood NEGATIVE (NEG); Urine Color YELLOW; Urine Glucose NEGATIVE (NEG); Urine Protein NEGATIVE (NEG); Urine Specific Gravity <=1.005 (1.005-1.030); Urine pH 7.5 (5.0-7.0)
[2018-05-29 21:58] LABS: Urine Bacteria <20 /HPF (<20); Urine Culture Reflex Order NOT NEEDED; Urine RBC <5 /HPF (NONE SEEN)
[2018-05-29] MEDS: MELATONIN 3 MG TABLET PO PRN (23:15)
--- NOTE | 2018-05-30 01:34 | FAST ---
SHIFT START DATE/TIME: 05/29/2018 19:00 (CDT) SHIFT END DATE/TIME: 05/30/2018 07:00 (CDT) NAME SIDDHARTHA WILDER DATE OF : 1950 DATE OF ADMISSION: 05/29/2018 11:23 (CDT) PHONE: AGE: 68 [facility]# [id number] GENDER: Female ENCOUNTER PHYSICIAN: Dr. Luis Torres M.D. ADMISSION DIAGNOSIS: - Orthopaedic Disorders 08 - Unilateral Hip Fracture (08.11) Right Displaced femoral Neck Fracture. - Orthopaedic Disorders 08 - Other Orthopaedic (08.9) Right Nondisplaced Distal Radius Fracture. EATING: Activity did not occur on this shift EATING - SCORE: 0-UNK GROOMING: Oral care Wash, rinse, and dry face Wash, rinse, and dry hands GROOMING - STEP 1: Does the patient require assistance when grooming? Yes. GROOMING - STEP 2: Does the patient require the assistance of a helper? Yes. GROOMING - STEP 3: How much assistance does the patient require from the helper? Only prior equipment preparation/set up from the helper GROOMING - SCORE: 5-SUP BATHING: Activity did not occur on this shift BATHING - SCORE: 0-UNK DRESSING - UPPER BODY: Patient is not dressing in public clothing ARTICLES SCORE Total number of steps: 0 DRESSING - UPPER BODY - SCORE: 0-UNK DRESSING - LOWER BODY: Patient is not dressing in public clothing ARTICLES SCORE Total number of steps: 0 DRESSING - LOWER BODY - SCORE: 0-UNK TOILETING: TOILETING - STEP 1: Does the patient require assistance with toileting? Yes. TOILETING - STEP 2: Does the patient require the assistance of a helper? Yes. TOILETING - STEP 3: How much assistance does the patient require from the helper? Only supervision TOILETING - SCORE: 5-SUP BLADDER MANAGEMENT: BLADDER MANAGEMENT - STEP 1: Does the patient control the bladder completely and intentionally without equipment or devices or med ications, and is always continent? Yes. BLADDER MANAGEMENT - SCORE: 7-IND BOWEL MANAGEMENT: Activity did not occur on this shift BOWEL MANAGEMENT - SCORE: 7-IND TRANSFERS: BED, CHAIR, WHEELCHAIR: TRANSFERS: BED, CHAIR, WHEELCHAIR - STEP 1: Does the patient require assistance with bed, chair, or wheelchair transfers? Yes. TRANSFERS: BED, CHAIR, WHEELCHAIR - STEP 2: Does the patient require the assistance of a helper? Yes. TRANSFERS: BED, CHAIR, WHEELCHAIR - STEP 3: How much assistance does the patient require from the helper? Steadying/guiding assistance TRANSFERS: BED, CHAIR, WHEELCHAIR - SCORE: 4-MIN TRANSFERS: TOILET: TRANSFERS: TOILET - STEP 1: Does the patient require assistance with toilet transfers? Yes. TRANSFERS: TOILET - STEP 2: Does the patient require the assistance of a helper? Yes. TRANSFERS: TOILET - STEP 3: How much assistance does the patient require from the helper? Only supervision, cuing, coaxing, OR he lp to set out transfer equipment or to lock brakes and/or lift foot rests TRANSFERS: TOILET - SCORE: 5-SUP TRANSFERS: SHOWER: Activity did not occur on this shift TRANSFERS: SHOWER - SCORE: 0-UNK TRANSFERS: TUB: Activity did not occur on this shift TRANSFERS: TUB - SCORE: 0-UNK LOCOMOTION: WALK: Activity did not occur on this shift LOCOMOTION: WALK - SCORE: 0-UNK LOCOMOTION: WHEELCHAIR: Activity did not occur on this shift LOCOMOTION: WHEELCHAIR - SCORE: 0-UNK COMPREHENSION: COMPREHENSION - STEP 1: Does the patient require help to understand complex and abstract ideas (such as current events, finan neal, discharge planning, medical issues, relationships, etc)? No. COMPREHENSION - STEP 2: Does the patient need extra time, require an assistive device (such as glasses, hearing aids, or an a ugmentative communication system), OR does s/he have mild difficulty expressing complex and abstract ideas (including mild dysarthria or mild word-finding problems)? No. COMPREHENSION - SCORE: 7-IND EXPRESSION EXPRESSION - STEP 1: Does the patient require help expressing complex and abstract ideas (such as current events, finances , discharge planning, medical issues, relationships, etc)? No. EXPRESSION - STEP 2: Does the patient need extra time, require an assistive device (such as augmentive communication syste m or a communication board), OR does s/he have mild difficulty expressing complex and abstract ideas (including mild dysarthria or mild word-find problems)? No. EXPRESSION - SCORE: 7-IND SOCIAL INTERACTION: SOCIAL INTERACTION - STEP 1: Does the patient require a helper to interact with others in social and therapeutic situations? No. SOCIAL INTERACTION - STEP 2: Does the patient need extra time in social situations, OR does s/he interact with staff, other patien ts, and family members ONLY in structured environments, OR does s/he require medication for social in teraction? Yes, patient needs extra time SOCIAL INTERACTION - SCORE: 6-SOFIA PROBLEM SOLVING: PROBLEM SOLVING - STEP 1: Does the patient need help to solve complex problems such as managing a checking account or confronti ng interpersonal problems? No. PROBLEM SOLVING - STEP 2: Does the patient require extra time to make decisions or solve problems, OR does s/he have slight dif ficulty reading, initiating, or self-correcting in unfamiliar situations? Yes, patient needs extra ti me. PROBLEM SOLVING - SCORE: 6-SOFIA MEMORY: MEMORY - STEP 1: Does the patient need help to remember frequently encountered people, daily routines, and executing r equests? No. MEMORY - STEP 2: Does the patient have slight difficulty recognizing frequently encountered people, daily routines, or executing requests without the need for repetition or using self-initiated or environmental cues to remember? No. MEMORY - SCORE: 7-IND SIGNATURE PANEL: The following modified sections: Eating - Score, Grooming - Score, Dressing - Upper Body - Score, Parmjit ssing - Lower Body - Score, Toileting - Score, Bladder Management - Score, Bowel Management - Score, Transfers: Bed, Chair, Wheelchair - Score, Transfers: Toilet - Score, Transfers: Shower - Score, Sotomayor sfers: Tub - Score, Locomotion: Walk - Score, Locomotion: Wheelchair - Score, Comprehension - Score, Expression - Score, Social Interaction - Score, Problem Solving - Score, Memory - Score were [electro nically] signed by Alma Rosa Judd CNA on SatMay 30 2018 01:33:25 GMT-0500 (Central Daylight Time)
[2018-05-30] MEDS: HYDROCODONE/APAP 5/325 MG TAB PO PRN ×4 (03:38→17:22)
[2018-05-30 06:05] LABS: Absolute Lymphocytes (CBC) 0.8 K/uL (0.7-4.9); Absolute Monocytes 0.4 K/uL (0.1-1.3); Absolute Neutrophil 4.1 K/uL (1.8-8.0); Basophils % 0.7 % (0-1.3); Eosinophils % 2.6 % (0-4.4); Lymphocytes % 14.7 % (15.3-44.8); MCH 33.7 pg (27.0-35.0); MCV 94.6 fL (80-100); MPV 7.6 fL (7.6-11.3); Monocytes % 7.9 % (3.3-12.3); RBC Red Blood Cell Count 3.06 M/uL (3.86-4.86)
[2018-05-30] MEDS: PANTOPRAZOLE 40MG TABLET PO SCH (06:26)
[2018-05-30 06:32] LABS: Albumin 2.8 g/dL (3.4-5.0); BUN Blood Urea Nitrogen 12 mg/dL (7-18); Bicarbonate 29 mmol/L (21-32); Glucose Level 150 mg/dL (74-106); Magnesium 2.2 mg/dL (1.8-2.4); Potassium 3.9 mmol/L (3.5-5.1); Prealbumin 10.6 mg/dL (20-40); Sodium Level 136 mmol/L (136-145)
[2018-05-30] MEDS: TRAMADOL HCL 50 MG TAB PO PRN ×3 (06:32→20:19)
[2018-05-30] MEDS: ENOXAPARIN 40 MG/0.4 ML SQ SCH (07:21)
[2018-05-30] MEDS: INSULIN -REGULAR HUMAN 50 UNIT/0.5 ML ML SQ SCH ×4 (07:30→20:43)
[2018-05-30] MEDS: FE SULF/FA/VIT B COMP & C TAB PO SCH (08:07)
[2018-05-30] MEDS: FERROUS SULFATE 325 MG TAB PO SCH (08:07)
[2018-05-30] MEDS: GABAPENTIN 300 MG CAP PO SCH ×2 (08:07→20:20)
[2018-05-30] MEDS: DOCUSATE NA 100 MG CAP PO SCH ×2 (08:07→20:20)
[2018-05-30] MEDS: METFORMIN HCL 500 MG TAB PO SCH (08:07)
[2018-05-30] MEDS: levoFLOXacin 500 MG TAB PO SCH (08:07)
[2018-05-30] MEDS: PROMOD 30 ML DOSE PO SCH ×2 (08:08→20:22)
[2018-05-30] MEDS: ONDANSETRON 4 MG (ODT) TAB PO PRN ×2 (08:56→13:56)
--- NOTE | 2018-05-30 09:50 | P.RH.PN ---
Estimated Length of Stay: 14 Expected Discharge Date: 06/11/18 Discharge Disposition Plan: Home Family Support: Yes [facility] Goal: Mobility, Transfers, Self Care Vital Signs: Last Vital Signs Temp 97.2 F 05/29/18 20:01 Pulse 87 05/30/18 08:00 Resp 18 05/30/18 08:00 BP 102/67 05/30/18 08:00 Pulse Ox 97 05/30/18 08:00 Laboratory: Laboratory Last Values WBC 5.6 K/uL (4.3-10.9) D 05/30/18 05:48 RBC 3.06 M/uL (3.86-4.86) L 05/30/18 05:48 Hgb 10.3 g/dL (12.0-15.0) L 05/30/18 05:48 Hct 29.0 % (36.0-45.0) L 05/30/18 05:48 MCV 94.6 fL (80-100) 05/30/18 05:48 MCH 33.7 pg (27.0-35.0) 05/30/18 05:48 MCHC 35.7 g/dL (32.0-36.0) 05/30/18 05:48 RDW 12.8 % (12.1-15.2) 05/30/18 05:48 Plt Count 258 K/uL (152-406) D 05/30/18 05:48 MPV 7.6 fL (7.6-11.3) 05/30/18 05:48 Neutrophils % 74.1 % (41.7-73.7) H 05/30/18 05:48 Lymphocytes % 14.7 % (15.3-44.8) L 05/30/18 05:48 Monocytes % 7.9 % (3.3-12.3) 05/30/18 05:48 Eosinophils % 2.6 % (0-4.4) 05/30/18 05:48 Basophils % 0.7 % (0-1.3) 05/30/18 05:48 Absolute Neutrophils 4.1 K/uL (1.8-8.0) 05/30/18 05:48 Absolute Lymphocytes 0.8 K/uL (0.7-4.9) 05/30/18 05:48 Absolute Monocytes 0.4 K/uL (0.1-1.3) 05/30/18 05:48 Absolute Eosinophils 0.1 K/uL (0-0.5) 05/30/18 05:48 Absolute Basophils 0.0 K/uL (0-0.5) 05/30/18 05:48 Sodium 136 mmol/L (136-145) 05/30/18 05:48 Potassium 3.9 mmol/L (3.5-5.1) 05/30/18 05:48 Chloride 102 mmol/L (98-107) 05/30/18 05:48 Carbon Dioxide 29 mmol/L (21-32) 05/30/18 05:48 BUN 12 mg/dL (7-18) 05/30/18 05:48 Creatinine 0.40 mg/dL (0.55-1.3) L 05/30/18 05:48 Estimated GFR > 90 mL/min (=/>90) 05/30/18 05:48 Glucose 150 mg/dL (74-106) H 05/30/18 05:48 POC Glucose 163 mg/dl (65-120) H 05/29/18 20:17 Calcium 9.0 mg/dL (8.5-10.1) 05/30/18 05:48 Magnesium 2.2 mg/dL (1.8-2.4) 05/30/18 05:48 Albumin 2.8 g/dL (3.4-5.0) L 05/30/18 05:48 Prealbumin 10.6 mg/dL (20-40) L 05/30/18 05:48 Urine Color Yellow 05/29/18 21:15 Urine Appearance Clear 05/29/18 21:15 Urine pH 7.5 (5.0-7.0) H 05/29/18 21:15 Ur Specific [place] <=1.005 (1.005-1.030) 05/29/18 21:15 Urine Ketones Negative (NEG) 05/29/18 21:15 Urine Blood Negative (NEG) 05/29/18 21:15 Urine Nitrite Negative (NEG) 05/29/18 21:15 Urine Bilirubin Negative (NEG) 05/29/18 21:15 Urine Urobilinogen 1.0 mg/dL (0.2-1.0) 05/29/18 21:15 Ur Leukocyte Esterase Negative (NEG) 05/29/18 21:15 Urine RBC <5 /HPF (NONE SEEN) 05/29/18 21:15 Urine WBC <5 /HPF (<5) 05/29/18 21:15 Ur Squamous Epith Cells <5 /HPF (NONE SEEN) 05/29/18 21:15 Urine Bacteria <20 /HPF (<20) 05/29/18 21:15 Urine Culture Reflexed Not needed 05/29/18 21:15 Urine Glucose Negative (NEG) 05/29/18 21:15 Urine Total Protein Negative (NEG) 05/29/18 21:15 Weight: 131 lb 5 oz Wound Present: No Closed Surgical Incision Present: Yes Negative Pressure Wound Therapy Present: No Physician Update: She is medically stable. She is doing well with therapy. Her pain is better managed when taking medications before physical therapy. Functional Improvement: pt presents with severe strength deficits in R LE. pt demonstrates poor tolerance to functional activity due to pain and fatigue. pt exhibits reduced balance and stability during standing and functional mobility. pt requires assist with functional mobility. pt limited by R wrist and hip pain. pt would greatly benefit from acute inpatient rehab upon discharge prior to return home. Summary: Patient's care plan and [facility] goals have been reviewed and revised as necessary. Please see the Rehabilitation Signature page for all necessary signatures.
[2018-05-30] MEDS: POLYETHYL GLY 3350 17 GM/DOSE PO PRN (12:12)
[2018-05-30] MEDS ORDERED: BISACODYL 10 MG RECTAL SUPP PR PRN (14:05)
[2018-05-30] MEDS: ASCORBIC ACID 500 MG TABLET PO SCH (14:26)
[2018-05-30] MEDS: VITAMIN D 1000 UNIT TAB PO SCH (14:27)
[2018-05-30] MEDS: ASPIRIN EC 81 MG TAB PO SCH (14:27)
[2018-05-30] MEDS: CYANOCOBALAMIN 1,000 MCG TAB PO SCH (14:27)
--- NOTE | 2018-05-30 14:44 | FAST ---
ENCOUNTER DATE AND TIME: 05/30/2018 08:00 (CDT) NAME SIDDHARTHA WILDER DATE OF : 1950 DATE OF ADMISSION: 05/29/2018 11:23 (CDT) PHONE: AGE: 68 N# [id number] GENDER: Female ENCOUNTER PHYSICIAN: Dr. Luis Torres M.D. ADMISSION DIAGNOSIS: - Orthopaedic Disorders 08 - Unilateral Hip Fracture (08.11) Right Displaced femoral Neck Fracture. - Orthopaedic Disorders 08 - Other Orthopaedic (08.9) Right Nondisplaced Distal Radius Fracture. EATING: Activity did not occur on this shift EATING - SCORE: 0-UNK GROOMING: Activity did not occur on this shift GROOMING - SCORE: 0-UNK BATHING: Activity did not occur on this shift BATHING - SCORE: 0-UNK DRESSING - UPPER BODY: Activity did not occur on this shift Patient is not dressing in public clothing ARTICLES SCORE Total number of steps: 0 DRESSING - UPPER BODY - SCORE: 0-UNK DRESSING - LOWER BODY: Activity did not occur on this shift Patient is not dressing in public clothing ARTICLES SCORE Total number of steps: 0 DRESSING - LOWER BODY - SCORE: 0-UNK TOILETING: Activity did not occur on this shift TOILETING - SCORE: 0-UNK BLADDER MANAGEMENT: Activity did not occur on this shift BLADDER MANAGEMENT - SCORE: 7-IND BOWEL MANAGEMENT: Activity did not occur on this shift BOWEL MANAGEMENT - SCORE: 7-IND TRANSFERS: BED, CHAIR, WHEELCHAIR: TRANSFERS: BED, CHAIR, WHEELCHAIR - STEP 1: Does the patient require assistance with bed, chair, or wheelchair transfers? Yes. TRANSFERS: BED, CHAIR, WHEELCHAIR - STEP 2: Does the patient require the assistance of a helper? Yes. TRANSFERS: BED, CHAIR, WHEELCHAIR - STEP 3: How much assistance does the patient require from the helper? Only supervision TRANSFERS: BED, CHAIR, WHEELCHAIR - SCORE: 5-SUP TRANSFERS: TOILET: TRANSFERS: TOILET - STEP 1: Does the patient require assistance with toilet transfers? Yes. TRANSFERS: TOILET - STEP 2: Does the patient require the assistance of a helper? Yes. TRANSFERS: TOILET - STEP 3: How much assistance does the patient require from the helper? Only supervision, cuing, coaxing, OR he lp to set out transfer equipment or to lock brakes and/or lift foot rests TRANSFERS: TOILET - SCORE: 5-SUP TRANSFERS: SHOWER: Activity did not occur on this shift TRANSFERS: SHOWER - SCORE: 0-UNK TRANSFERS: TUB: Activity did not occur on this shift TRANSFERS: TUB - SCORE: 0-UNK LOCOMOTION: WALK: LOCOMOTION: WALK - STEP 1: Does the patient need help to walk 150 feet? Yes. LOCOMOTION: WALK - STEP 2: How much assistance does the patient require to walk a minimum of 150 feet? Only supervision, cuing, or coaxing LOCOMOTION: WALK - SCORE: 5-SUP LOCOMOTION: WHEELCHAIR: Activity did not occur on this shift LOCOMOTION: WHEELCHAIR - SCORE: 0-UNK LOCOMOTION: STAIRS: Activity did not occur on this shift LOCOMOTION: STAIRS - SCORE: 0-UNK COMPREHENSION: COMPREHENSION - SCORE: 0-UNK EXPRESSION EXPRESSION - SCORE: 0-UNK SOCIAL INTERACTION: SOCIAL INTERACTION - SCORE: 0-UNK PROBLEM SOLVING: PROBLEM SOLVING - SCORE: 0-UNK MEMORY: MEMORY - SCORE: 0-UNK SIGNATURE PANEL: The following modified sections: Transfers: Bed, Chair, Wheelchair - Score, Transfers: Toilet - Score , Locomotion: Walk - Score, Locomotion: Wheelchair - Score, Locomotion: Stairs - Score were [electron ically] signed by Remy George PT on SatMay 30 2018 14:43:54 T-0500 (Central Daylight Time)
--- NOTE | 2018-05-30 16:35 | FAST ---
SHIFT START DATE/TIME: 05/30/2018 07:00 (CDT) SHIFT END DATE/TIME: 05/30/2018 19:00 (CDT) NAME SIDDHARTHA WILDER DATE OF : 1950 DATE OF ADMISSION: 05/29/2018 11:23 (CDT) PHONE: AGE: 68 N# [id number] GENDER: Female ENCOUNTER PHYSICIAN: Dr. Luis Torres M.D. ADMISSION DIAGNOSIS: - Orthopaedic Disorders 08 - Unilateral Hip Fracture (08.11) Right Displaced femoral Neck Fracture. - Orthopaedic Disorders 08 - Other Orthopaedic (08.9) Right Nondisplaced Distal Radius Fracture. EATING: EATING - STEP 1: Does the patient require assistance when eating? Yes. EATING - STEP 2: Does the patient require the assistance of a helper? No, patient only requires an assistive device, O R s/he takes more than reasonable time to eat, OR there is a safety concern, OR s/he requires modifie d food consistency EATING - SCORE: 6-SOFIA GROOMING: Comb/brush hair Oral care Wash, rinse, and dry face GROOMING - STEP 1: Does the patient require assistance when grooming? Yes. GROOMING - STEP 2: Does the patient require the assistance of a helper? Yes. GROOMING - STEP 3: How much assistance does the patient require from the helper? Only prior equipment preparation/set up from the helper GROOMING - SCORE: 5-SUP BATHING: Activity did not occur on this shift BATHING - SCORE: 0-UNK DRESSING - UPPER BODY: T-shirt/pullover shirt (four steps) ARTICLES SCORE Total number of steps: 4 DRESSING - UPPER BODY - STEP 1: Does the patient require help when dressing above the waist? Yes. DRESSING - UPPER BODY - STEP 2: Does the patient require the assistance of a helper? No. Patient only requires an assistive device, s uch as a button hook, velcro, or pets salesperson. OR s/he takes more than reasonable time as s/he dresses the upper body. OR there is a concern for safety when s/he dresses the upper body DRESSING - UPPER BODY - SCORE: 6-SOFIA DRESSING - LOWER BODY: Activity did not occur on this shift ARTICLES SCORE Total number of steps: 0 DRESSING - LOWER BODY - SCORE: 0-UNK TOILETING: TOILETING - STEP 1: Does the patient require assistance with toileting? No. TOILETING - SCORE: 7-IND BLADDER MANAGEMENT: BLADDER MANAGEMENT - STEP 1: Does the patient control the bladder completely and intentionally without equipment or devices or med ications, and is always continent? Yes. BLADDER MANAGEMENT - SCORE: 7-IND BLADDER MANAGEMENT - FREQUENCY OF ACCIDENTS: BLADDER MANAGEMENT(FA) - STEP 1: How many accidents has the patient had during the current shift? 0 BOWEL MANAGEMENT: BOWEL MANAGEMENT - STEP 1: Does the patient control bowels completely and intentionally without equipment devices or medications AND is always continent? Yes. BOWEL MANAGEMENT - SCORE: 7-IND BOWEL MANAGEMENT - FREQUENCY OF ACCIDENTS: BOWEL MANAGEMENT(FA) - STEP 1: How many accidents has the patient had during the current shift? 0 TRANSFERS: BED, CHAIR, WHEELCHAIR: TRANSFERS: BED, CHAIR, WHEELCHAIR - STEP 1: Does the patient require assistance with bed, chair, or wheelchair transfers? Yes. TRANSFERS: BED, CHAIR, WHEELCHAIR - STEP 2: Does the patient require the assistance of a helper? Yes. TRANSFERS: BED, CHAIR, WHEELCHAIR - STEP 3: How much assistance does the patient require from the helper? Only supervision TRANSFERS: BED, CHAIR, WHEELCHAIR - SCORE: 5-SUP TRANSFERS: TOILET: TRANSFERS: TOILET - STEP 1: Does the patient require assistance with toilet transfers? Yes. TRANSFERS: TOILET - STEP 2: Does the patient require the assistance of a helper? Yes. TRANSFERS: TOILET - STEP 3: How much assistance does the patient require from the helper? Only supervision, cuing, coaxing, OR he lp to set out transfer equipment or to lock brakes and/or lift foot rests TRANSFERS: TOILET - SCORE: 5-SUP TRANSFERS: SHOWER: Activity did not occur on this shift TRANSFERS: SHOWER - SCORE: 0-UNK TRANSFERS: TUB: Activity did not occur on this shift TRANSFERS: TUB - SCORE: 0-UNK LOCOMOTION: WALK: Activity did not occur on this shift LOCOMOTION: WALK - SCORE: 0-UNK LOCOMOTION: WHEELCHAIR: Activity did not occur on this shift LOCOMOTION: WHEELCHAIR - SCORE: 0-UNK COMPREHENSION: COMPREHENSION - SCORE: 0-UNK EXPRESSION EXPRESSION - SCORE: 0-UNK SOCIAL INTERACTION: SOCIAL INTERACTION - SCORE: 0-UNK PROBLEM SOLVING: PROBLEM SOLVING - SCORE: 0-UNK MEMORY: MEMORY - SCORE: 0-UNK SIGNATURE PANEL: The following modified sections: Eating - Score, Grooming - Score, Bathing - Score, Dressing - Upper Body - Score, Dressing - Lower Body - Score, Toileting - Score, Bladder Management - Score, Bowel Man agement - Score, Transfers: Bed, Chair, Wheelchair - Score, Transfers: Toilet - Score, Transfers: Mary wer - Score, Transfers: Tub - Score, Locomotion: Walk - Score, Locomotion: Wheelchair - Score, Compre hension - Score, Expression - Score, Social Interaction - Score, Problem Solving - Score, Memory - Sc ore were [electronically] signed by Gisell Hebert CNA on SatMay 30 2018 16:33:46 T-0500 (Centra l Daylight Time)
[2018-05-30] MEDS ORDERED: FORMULATION-R RECTAL 30GM PR PRN (16:45)
[2018-05-30] MEDS: ATORVASTATIN 10 MG TAB PO SCH (20:20)
[2018-05-30] MEDS: MELATONIN 3 MG TABLET PO PRN (20:20)
--- NOTE | 2018-05-31 02:39 | FAST ---
SHIFT START DATE/TIME: 05/30/2018 19:00 (CDT) SHIFT END DATE/TIME: 05/31/2018 07:00 (CDT) NAME SIDDHARTHA WILDER DATE OF : 1950 DATE OF ADMISSION: 05/29/2018 11:23 (CDT) PHONE: AGE: 68 [facility]# [id number] GENDER: Female ENCOUNTER PHYSICIAN: Dr. Luis Torres M.D. ADMISSION DIAGNOSIS: - Orthopaedic Disorders 08 - Unilateral Hip Fracture (08.11) Right Displaced femoral Neck Fracture. - Orthopaedic Disorders 08 - Other Orthopaedic (08.9) Right Nondisplaced Distal Radius Fracture. EATING: Activity did not occur on this shift EATING - SCORE: 0-UNK GROOMING: Oral care Wash, rinse, and dry face Wash, rinse, and dry hands GROOMING - STEP 1: Does the patient require assistance when grooming? Yes. GROOMING - STEP 2: Does the patient require the assistance of a helper? Yes. GROOMING - STEP 3: How much assistance does the patient require from the helper? Only prior equipment preparation/set up from the helper GROOMING - SCORE: 5-SUP BATHING: Activity did not occur on this shift BATHING - SCORE: 0-UNK DRESSING - UPPER BODY: Patient is not dressing in public clothing ARTICLES SCORE Total number of steps: 0 DRESSING - UPPER BODY - SCORE: 0-UNK DRESSING - LOWER BODY: Patient is not dressing in public clothing ARTICLES SCORE Total number of steps: 0 DRESSING - LOWER BODY - SCORE: 0-UNK TOILETING: TOILETING - STEP 1: Does the patient require assistance with toileting? Yes. TOILETING - STEP 2: Does the patient require the assistance of a helper? Yes. TOILETING - STEP 3: How much assistance does the patient require from the helper? Only supervision TOILETING - SCORE: 5-SUP BLADDER MANAGEMENT: BLADDER MANAGEMENT - STEP 1: Does the patient control the bladder completely and intentionally without equipment or devices or med ications, and is always continent? Yes. BLADDER MANAGEMENT - SCORE: 7-IND BOWEL MANAGEMENT: Activity did not occur on this shift BOWEL MANAGEMENT - SCORE: 7-IND TRANSFERS: BED, CHAIR, WHEELCHAIR: TRANSFERS: BED, CHAIR, WHEELCHAIR - STEP 1: Does the patient require assistance with bed, chair, or wheelchair transfers? Yes. TRANSFERS: BED, CHAIR, WHEELCHAIR - STEP 2: Does the patient require the assistance of a helper? Yes. TRANSFERS: BED, CHAIR, WHEELCHAIR - STEP 3: How much assistance does the patient require from the helper? Only supervision TRANSFERS: BED, CHAIR, WHEELCHAIR - SCORE: 5-SUP TRANSFERS: TOILET: TRANSFERS: TOILET - STEP 1: Does the patient require assistance with toilet transfers? Yes. TRANSFERS: TOILET - STEP 2: Does the patient require the assistance of a helper? Yes. TRANSFERS: TOILET - STEP 3: How much assistance does the patient require from the helper? Only supervision, cuing, coaxing, OR he lp to set out transfer equipment or to lock brakes and/or lift foot rests TRANSFERS: TOILET - SCORE: 5-SUP TRANSFERS: SHOWER: Activity did not occur on this shift TRANSFERS: SHOWER - SCORE: 0-UNK TRANSFERS: TUB: Activity did not occur on this shift TRANSFERS: TUB - SCORE: 0-UNK LOCOMOTION: WALK: Activity did not occur on this shift LOCOMOTION: WALK - SCORE: 0-UNK LOCOMOTION: WHEELCHAIR: Activity did not occur on this shift LOCOMOTION: WHEELCHAIR - SCORE: 0-UNK COMPREHENSION: COMPREHENSION: TYPE: Both COMPREHENSION - STEP 1: Does the patient require help to understand complex and abstract ideas (such as current events, finan neal, discharge planning, medical issues, relationships, etc)? No. COMPREHENSION - STEP 2: Does the patient need extra time, require an assistive device (such as glasses, hearing aids, or an a ugmentative communication system), OR does s/he have mild difficulty expressing complex and abstract ideas (including mild dysarthria or mild word-finding problems)? Yes. COMPREHENSION - SCORE: 6-SOFIA EXPRESSION EXPRESSION: TYPE: Both EXPRESSION - STEP 1: Does the patient require help expressing complex and abstract ideas (such as current events, finances , discharge planning, medical issues, relationships, etc)? No. EXPRESSION - STEP 2: Does the patient need extra time, require an assistive device (such as augmentive communication syste m or a communication board), OR does s/he have mild difficulty expressing complex and abstract ideas (including mild dysarthria or mild word-find problems)? Yes. EXPRESSION - SCORE: 6-SOFIA SOCIAL INTERACTION: SOCIAL INTERACTION - STEP 1: Does the patient require a helper to interact with others in social and therapeutic situations? No. SOCIAL INTERACTION - STEP 2: Does the patient need extra time in social situations, OR does s/he interact with staff, other patien ts, and family members ONLY in structured environments, OR does s/he require medication for social in teraction? Yes, patient needs extra time SOCIAL INTERACTION - SCORE: 6-SOFIA PROBLEM SOLVING: PROBLEM SOLVING - STEP 1: Does the patient need help to solve complex problems such as managing a checking account or confronti ng interpersonal problems? No. PROBLEM SOLVING - STEP 2: Does the patient require extra time to make decisions or solve problems, OR does s/he have slight dif ficulty reading, initiating, or self-correcting in unfamiliar situations? Yes, patient needs extra ti me. PROBLEM SOLVING - SCORE: 6-SOFIA MEMORY: MEMORY - STEP 1: Does the patient need help to remember frequently encountered people, daily routines, and executing r equests? No. MEMORY - STEP 2: Does the patient have slight difficulty recognizing frequently encountered people, daily routines, or executing requests without the need for repetition or using self-initiated or environmental cues to remember? No. MEMORY - SCORE: 7-IND
[2018-05-31] MEDS: HYDROCODONE/APAP 5/325 MG TAB PO PRN ×4 (03:00→20:53)
[2018-05-31] MEDS: PANTOPRAZOLE 40MG TABLET PO SCH (06:16)
[2018-05-31] MEDS: TRAMADOL HCL 50 MG TAB PO PRN ×3 (07:01→17:27)
[2018-05-31] MEDS: INSULIN -REGULAR HUMAN 50 UNIT/0.5 ML ML SQ SCH ×4 (07:06→20:20)
[2018-05-31] MEDS: ENOXAPARIN 40 MG/0.4 ML SQ SCH (08:50)
[2018-05-31] MEDS: GABAPENTIN 300 MG CAP PO SCH ×2 (08:51→19:24)
[2018-05-31] MEDS: levoFLOXacin 500 MG TAB PO SCH (08:51)
[2018-05-31] MEDS: ASCORBIC ACID 500 MG TABLET PO SCH (08:51)
[2018-05-31] MEDS: DOCUSATE NA 100 MG CAP PO SCH ×2 (08:51→19:24)
[2018-05-31] MEDS: METFORMIN HCL 500 MG TAB PO SCH (08:51)
[2018-05-31] MEDS: VITAMIN D 1000 UNIT TAB PO SCH (08:51)
[2018-05-31] MEDS: FERROUS SULFATE 325 MG TAB PO SCH (08:51)
[2018-05-31] MEDS: ASPIRIN EC 81 MG TAB PO SCH (08:51)
[2018-05-31] MEDS: CYANOCOBALAMIN 1,000 MCG TAB PO SCH (08:51)
[2018-05-31] MEDS: FE SULF/FA/VIT B COMP & C TAB PO SCH (08:51)
[2018-05-31] MEDS: PROMOD 30 ML DOSE PO SCH ×2 (08:52→19:25)
--- NOTE | 2018-05-31 10:44 | FAST ---
SHIFT START DATE/TIME: 05/31/2018 07:00 (CDT) SHIFT END DATE/TIME: 05/31/2018 19:00 (CDT) NAME SIDDHARTHA WILDER DATE OF : 1950 DATE OF ADMISSION: 05/29/2018 11:23 (CDT) PHONE: AGE: 68 N# [id number] GENDER: Female ENCOUNTER PHYSICIAN: Dr. Luis Torres M.D. ADMISSION DIAGNOSIS: - Orthopaedic Disorders 08 - Unilateral Hip Fracture (08.11) Right Displaced femoral Neck Fracture. - Orthopaedic Disorders 08 - Other Orthopaedic (08.9) Right Nondisplaced Distal Radius Fracture. EATING: EATING - STEP 1: Does the patient require assistance when eating? Yes. EATING - STEP 2: Does the patient require the assistance of a helper? No, patient only requires an assistive device, O R s/he takes more than reasonable time to eat, OR there is a safety concern, OR s/he requires modifie d food consistency EATING - SCORE: 6-SOFIA GROOMING: Activity did not occur on this shift GROOMING - SCORE: 0-UNK BATHING: Activity did not occur on this shift BATHING - SCORE: 0-UNK DRESSING - UPPER BODY: Activity did not occur on this shift ARTICLES SCORE Total number of steps: 0 DRESSING - UPPER BODY - SCORE: 0-UNK DRESSING - LOWER BODY: Activity did not occur on this shift ARTICLES SCORE Total number of steps: 0 DRESSING - LOWER BODY - SCORE: 0-UNK TOILETING: TOILETING - STEP 1: Does the patient require assistance with toileting? Yes. TOILETING - STEP 2: Does the patient require the assistance of a helper? Yes. TOILETING - STEP 3: How much assistance does the patient require from the helper? Only supervision TOILETING - SCORE: 5-SUP BLADDER MANAGEMENT: BLADDER MANAGEMENT - STEP 1: Does the patient control the bladder completely and intentionally without equipment or devices or med ications, and is always continent? No. BLADDER MANAGEMENT - STEP 2: Does the patient require the assistance of a helper? No, patient requires and independently uses an a ssistive device, such as a urinal, bedpan, bedside commode, catheter, absorbent pad, or collecting de vice BLADDER MANAGEMENT - SCORE: 6-SOFIA BOWEL MANAGEMENT: Activity did not occur on this shift BOWEL MANAGEMENT - SCORE: 7-IND TRANSFERS: BED, CHAIR, WHEELCHAIR: TRANSFERS: BED, CHAIR, WHEELCHAIR - STEP 1: Does the patient require assistance with bed, chair, or wheelchair transfers? Yes. TRANSFERS: BED, CHAIR, WHEELCHAIR - STEP 2: Does the patient require the assistance of a helper? Yes. TRANSFERS: BED, CHAIR, WHEELCHAIR - STEP 3: How much assistance does the patient require from the helper? Steadying/guiding assistance TRANSFERS: BED, CHAIR, WHEELCHAIR - SCORE: 4-MIN TRANSFERS: TOILET: TRANSFERS: TOILET - STEP 1: Does the patient require assistance with toilet transfers? Yes. TRANSFERS: TOILET - STEP 2: Does the patient require the assistance of a helper? Yes. TRANSFERS: TOILET - STEP 3: How much assistance does the patient require from the helper? Only supervision, cuing, coaxing, OR he lp to set out transfer equipment or to lock brakes and/or lift foot rests TRANSFERS: TOILET - SCORE: 5-SUP TRANSFERS: SHOWER: Activity did not occur on this shift TRANSFERS: SHOWER - SCORE: 0-UNK TRANSFERS: TUB: Activity did not occur on this shift TRANSFERS: TUB - SCORE: 0-UNK LOCOMOTION: WALK: Activity did not occur on this shift LOCOMOTION: WALK - SCORE: 0-UNK LOCOMOTION: WHEELCHAIR: Activity did not occur on this shift LOCOMOTION: WHEELCHAIR - SCORE: 0-UNK COMPREHENSION: COMPREHENSION - SCORE: 0-UNK EXPRESSION EXPRESSION - SCORE: 0-UNK SOCIAL INTERACTION: SOCIAL INTERACTION - SCORE: 0-UNK PROBLEM SOLVING: PROBLEM SOLVING - SCORE: 0-UNK MEMORY: MEMORY - SCORE: 0-UNK SIGNATURE PANEL: The following modified sections: Eating - Score, Grooming - Score, Bathing - Score, Dressing - Upper Body - Score, Dressing - Lower Body - Score, Toileting - Score, Bladder Management - Score, Bowel Man agement - Score, Transfers: Bed, Chair, Wheelchair - Score, Transfers: Toilet - Score, Transfers: Mary wer - Score, Transfers: Tub - Score, Locomotion: Walk - Score, Locomotion: Wheelchair - Score, Compre hension - Score, Expression - Score, Social Interaction - Score, Problem Solving - Score, Memory - Sc ore were [electronically] signed by Arjun Mckeon on Sat May 31 2018 10:43:50 [email or web address]-0500 (Central Daylight Time)
[2018-05-31] MEDS: POLYETHYL GLY 3350 17 GM/DOSE PO PRN (10:56)
--- NOTE | 2018-05-31 12:18 | FAST ---
ENCOUNTER DATE AND TIME: 05/31/2018 08:00 (CDT) NAME SIDDHARTHA WILDER DATE OF : 1950 DATE OF ADMISSION: 05/29/2018 11:23 (CDT) PHONE: AGE: 68 N# [id number] GENDER: Female ENCOUNTER PHYSICIAN: Dr. Luis Torres M.D. ADMISSION DIAGNOSIS: - Orthopaedic Disorders 08 - Unilateral Hip Fracture (08.11) Right Displaced femoral Neck Fracture. - Orthopaedic Disorders 08 - Other Orthopaedic (08.9) Right Nondisplaced Distal Radius Fracture. EATING: Activity did not occur on this shift EATING - SCORE: 0-UNK GROOMING: Activity did not occur on this shift GROOMING - SCORE: 0-UNK BATHING: Activity did not occur on this shift BATHING - SCORE: 0-UNK DRESSING - UPPER BODY: Activity did not occur on this shift Patient is not dressing in public clothing ARTICLES SCORE Total number of steps: 0 DRESSING - UPPER BODY - SCORE: 0-UNK DRESSING - LOWER BODY: Activity did not occur on this shift Patient is not dressing in public clothing ARTICLES SCORE Total number of steps: 0 DRESSING - LOWER BODY - SCORE: 0-UNK TOILETING: Activity did not occur on this shift TOILETING - SCORE: 0-UNK BLADDER MANAGEMENT: Activity did not occur on this shift BLADDER MANAGEMENT - SCORE: 7-IND BOWEL MANAGEMENT: Activity did not occur on this shift BOWEL MANAGEMENT - SCORE: 7-IND TRANSFERS: BED, CHAIR, WHEELCHAIR: TRANSFERS: BED, CHAIR, WHEELCHAIR - STEP 1: Does the patient require assistance with bed, chair, or wheelchair transfers? Yes. TRANSFERS: BED, CHAIR, WHEELCHAIR - STEP 2: Does the patient require the assistance of a helper? Yes. TRANSFERS: BED, CHAIR, WHEELCHAIR - STEP 3: How much assistance does the patient require from the helper? Only supervision TRANSFERS: BED, CHAIR, WHEELCHAIR - SCORE: 5-SUP TRANSFERS: TOILET: Activity did not occur on this shift TRANSFERS: TOILET - SCORE: 0-UNK TRANSFERS: SHOWER: Activity did not occur on this shift TRANSFERS: SHOWER - SCORE: 0-UNK TRANSFERS: TUB: Activity did not occur on this shift TRANSFERS: TUB - SCORE: 0-UNK LOCOMOTION: WALK: LOCOMOTION: WALK - STEP 1: Does the patient need help to walk 150 feet? Yes. LOCOMOTION: WALK - STEP 2: How much assistance does the patient require to walk a minimum of 150 feet? Only supervision, cuing, or coaxing LOCOMOTION: WALK - SCORE: 5-SUP LOCOMOTION: WHEELCHAIR: Activity did not occur on this shift LOCOMOTION: WHEELCHAIR - SCORE: 0-UNK LOCOMOTION: STAIRS: Activity did not occur on this shift LOCOMOTION: STAIRS - SCORE: 0-UNK COMPREHENSION: COMPREHENSION - SCORE: 0-UNK EXPRESSION EXPRESSION - SCORE: 0-UNK SOCIAL INTERACTION: SOCIAL INTERACTION - SCORE: 0-UNK PROBLEM SOLVING: PROBLEM SOLVING - SCORE: 0-UNK MEMORY: MEMORY - SCORE: 0-UNK SIGNATURE PANEL: The following modified sections: Transfers: Bed, Chair, Wheelchair - Score, Transfers: Toilet - Score , Locomotion: Walk - Score, Locomotion: Wheelchair - Score, Locomotion: Stairs - Score were [electron aiden] signed by Mindi Morgan PTA on Sat May 31 2018 12:17:16 GMT-0500 (Central Daylight Time)
[2018-05-31] MEDS: ATORVASTATIN 10 MG TAB PO SCH (20:53)
[2018-05-31] MEDS: MELATONIN 3 MG TABLET PO PRN (20:53)
[2018-05-31] MEDS: ONDANSETRON 4 MG (ODT) TAB PO PRN (21:53)
--- NOTE | 2018-06-01 03:07 | FAST ---
SHIFT START DATE/TIME: 05/31/2018 19:00 (CDT) SHIFT END DATE/TIME: 06/01/2018 07:00 (CDT) NAME SIDDHARTHA WILDER DATE OF : 1950 DATE OF ADMISSION: 05/29/2018 11:23 (CDT) PHONE: AGE: 68 [facility], [place]# [phone] GENDER: Female ENCOUNTER PHYSICIAN: Dr. Luis Torres M.D. ADMISSION DIAGNOSIS: - Orthopaedic Disorders 08 - Unilateral Hip Fracture (08.11) Right Displaced femoral Neck Fracture. - Orthopaedic Disorders 08 - Other Orthopaedic (08.9) Right Nondisplaced Distal Radius Fracture. EATING: EATING - STEP 1: Does the patient require assistance when eating? Yes. EATING - STEP 2: Does the patient require the assistance of a helper? Yes. EATING - STEP 3: Does the patient perform half or more of the eating tasks? Yes. EATING - STEP 4: Does the patient need only supervision, cuing, coaxing OR help to apply an orthosis OR help to cut fo od, open containers, pour liquids, or butter bread? Yes. EATING - SCORE: 5-SUP GROOMING: Activity did not occur on this shift GROOMING - SCORE: 0-UNK BATHING: Activity did not occur on this shift BATHING - SCORE: 0-UNK DRESSING - UPPER BODY: Patient is not dressing in public clothing ARTICLES SCORE Total number of steps: 0 DRESSING - UPPER BODY - SCORE: 0-UNK DRESSING - LOWER BODY: Patient is not dressing in public clothing ARTICLES SCORE Total number of steps: 0 DRESSING - LOWER BODY - SCORE: 0-UNK TOILETING: TOILETING - STEP 1: Does the patient require assistance with toileting? Yes. TOILETING - STEP 2: Does the patient require the assistance of a helper? Yes. TOILETING - STEP 3: How much assistance does the patient require from the helper? Only supervision TOILETING - SCORE: 5-SUP BLADDER MANAGEMENT: BLADDER MANAGEMENT - STEP 1: Does the patient control the bladder completely and intentionally without equipment or devices or med ications, and is always continent? No. BLADDER MANAGEMENT - STEP 2: Does the patient require the assistance of a helper? Yes. BLADDER MANAGEMENT - STEP 3: How much assistance does the patient require from the helper? Only supervision, stand-by, cuing, or c oaxing BLADDER MANAGEMENT - SCORE: 5-SUP BLADDER MANAGEMENT - FREQUENCY OF ACCIDENTS: BLADDER MANAGEMENT(FA) - STEP 1: How many accidents has the patient had during the current shift? 0 BOWEL MANAGEMENT: Activity did not occur on this shift BOWEL MANAGEMENT - SCORE: 7-IND TRANSFERS: BED, CHAIR, WHEELCHAIR: TRANSFERS: BED, CHAIR, WHEELCHAIR - STEP 1: Does the patient require assistance with bed, chair, or wheelchair transfers? Yes. TRANSFERS: BED, CHAIR, WHEELCHAIR - STEP 2: Does the patient require the assistance of a helper? Yes. TRANSFERS: BED, CHAIR, WHEELCHAIR - STEP 3: How much assistance does the patient require from the helper? Only supervision TRANSFERS: BED, CHAIR, WHEELCHAIR - SCORE: 5-SUP TRANSFERS: TOILET: TRANSFERS: TOILET - STEP 1: Does the patient require assistance with toilet transfers? Yes. TRANSFERS: TOILET - STEP 2: Does the patient require the assistance of a helper? Yes. TRANSFERS: TOILET - STEP 3: How much assistance does the patient require from the helper? Only supervision, cuing, coaxing, OR he lp to set out transfer equipment or to lock brakes and/or lift foot rests TRANSFERS: TOILET - SCORE: 5-SUP TRANSFERS: SHOWER: Activity did not occur on this shift TRANSFERS: SHOWER - SCORE: 0-UNK TRANSFERS: TUB: Activity did not occur on this shift TRANSFERS: TUB - SCORE: 0-UNK LOCOMOTION: WALK: Activity did not occur on this shift LOCOMOTION: WALK - SCORE: 0-UNK LOCOMOTION: WHEELCHAIR: Activity did not occur on this shift LOCOMOTION: WHEELCHAIR - SCORE: 0-UNK COMPREHENSION: COMPREHENSION: TYPE: Both COMPREHENSION - STEP 1: Does the patient require help to understand complex and abstract ideas (such as current events, finan neal, discharge planning, medical issues, relationships, etc)? No. COMPREHENSION - STEP 2: Does the patient need extra time, require an assistive device (such as glasses, hearing aids, or an a ugmentative communication system), OR does s/he have mild difficulty expressing complex and abstract ideas (including mild dysarthria or mild word-finding problems)? Yes. COMPREHENSION - SCORE: 6-SOFIA EXPRESSION EXPRESSION: TYPE: Both EXPRESSION - STEP 1: Does the patient require help expressing complex and abstract ideas (such as current events, finances , discharge planning, medical issues, relationships, etc)? No. EXPRESSION - STEP 2: Does the patient need extra time, require an assistive device (such as augmentive communication syste m or a communication board), OR does s/he have mild difficulty expressing complex and abstract ideas (including mild dysarthria or mild word-find problems)? Yes. EXPRESSION - SCORE: 6-SOFIA SOCIAL INTERACTION: SOCIAL INTERACTION - STEP 1: Does the patient require a helper to interact with others in social and therapeutic situations? No. SOCIAL INTERACTION - STEP 2: Does the patient need extra time in social situations, OR does s/he interact with staff, other patien ts, and family members ONLY in structured environments, OR does s/he require medication for social in teraction? Yes, patient needs extra time SOCIAL INTERACTION - SCORE: 6-SOFIA PROBLEM SOLVING: PROBLEM SOLVING - STEP 1: Does the patient need help to solve complex problems such as managing a checking account or confronti ng interpersonal problems? No. PROBLEM SOLVING - STEP 2: Does the patient require extra time to make decisions or solve problems, OR does s/he have slight dif ficulty reading, initiating, or self-correcting in unfamiliar situations? Yes, patient needs extra ti me. PROBLEM SOLVING - SCORE: 6-SOFIA MEMORY: MEMORY - STEP 1: Does the patient need help to remember frequently encountered people, daily routines, and executing r equests? No. MEMORY - STEP 2: Does the patient have slight difficulty recognizing frequently encountered people, daily routines, or executing requests without the need for repetition or using self-initiated or environmental cues to remember? Yes. MEMORY - SCORE: 6-SOFIA SIGNATURE PANEL: The following modified sections: Eating - Score, Grooming - Score, Bathing - Score, Dressing - Upper Body - Score, Dressing - Lower Body - Score, Toileting - Score, Bladder Management - Score, Bowel Man agement - Score, Transfers: Bed, Chair, Wheelchair - Score, Transfers: Toilet - Score, Transfers: Mary wer - Score, Transfers: Tub - Score, Locomotion: Walk - Score, Locomotion: Wheelchair - Score, Compre hension - Score, Expression - Score, Social Interaction - Score, Problem Solving - Score, Memory - Sc ore were [electronically] signed by Gracie [email or web address]. on SatJun 01 2018 03:06:38 T-0500 ( Central Daylight Time)
[2018-06-01] MEDS: TRAMADOL HCL 50 MG TAB PO PRN ×3 (04:45→16:31)
[2018-06-01] MEDS: PANTOPRAZOLE 40MG TABLET PO SCH (06:13)
[2018-06-01] MEDS: ENOXAPARIN 40 MG/0.4 ML SQ SCH (07:12)
[2018-06-01] MEDS: INSULIN -REGULAR HUMAN 50 UNIT/0.5 ML ML SQ SCH ×4 (07:30→20:14)
[2018-06-01] MEDS: HYDROCODONE/APAP 5/325 MG TAB PO PRN ×3 (07:37→20:11)
[2018-06-01] MEDS ORDERED: LIDOCAINE 5% PATCH TOP SCH (08:00)
[2018-06-01] MEDS: PROMOD 30 ML DOSE PO SCH ×2 (08:13→20:12)
[2018-06-01] MEDS: ASPIRIN EC 81 MG TAB PO SCH (08:14)
[2018-06-01] MEDS: ASCORBIC ACID 500 MG TABLET PO SCH (08:14)
[2018-06-01] MEDS: METFORMIN HCL 500 MG TAB PO SCH (08:14)
[2018-06-01] MEDS: levoFLOXacin 500 MG TAB PO SCH (08:14)
[2018-06-01] MEDS: GABAPENTIN 300 MG CAP PO SCH ×2 (08:14→20:12)
[2018-06-01] MEDS: DOCUSATE NA 100 MG CAP PO SCH ×2 (08:15→20:11)
[2018-06-01] MEDS: VITAMIN D 1000 UNIT TAB PO SCH (08:15)
[2018-06-01] MEDS: CYANOCOBALAMIN 1,000 MCG TAB PO SCH (08:15)
[2018-06-01] MEDS: FE SULF/FA/VIT B COMP & C TAB PO SCH (08:15)
[2018-06-01] MEDS: FERROUS SULFATE 325 MG TAB PO SCH (08:15)
[2018-06-01] MEDS: LIDOCAINE 5% PATCH TOP SCH (10:20)
--- NOTE | 2018-06-01 14:23 | FAST ---
SHIFT START DATE/TIME: 06/01/2018 07:00 (CDT) SHIFT END DATE/TIME: 06/01/2018 19:00 (CDT) NAME SIDDHARTHA WILDER DATE OF : 1950 DATE OF ADMISSION: 05/29/2018 11:23 (CDT) PHONE: AGE: 68 [facility]# [id number] GENDER: Female ENCOUNTER PHYSICIAN: Dr. Luis Torres M.D. ADMISSION DIAGNOSIS: - Orthopaedic Disorders 08 - Unilateral Hip Fracture (08.11) Right Displaced femoral Neck Fracture. - Orthopaedic Disorders 08 - Other Orthopaedic (08.9) Right Nondisplaced Distal Radius Fracture. EATING: EATING - STEP 1: Does the patient require assistance when eating? Yes. EATING - STEP 2: Does the patient require the assistance of a helper? No, patient only requires an assistive device, O R s/he takes more than reasonable time to eat, OR there is a safety concern, OR s/he requires modifie d food consistency EATING - SCORE: 6-SOFIA GROOMING: Comb/brush hair Oral care Wash, rinse, and dry face Wash, rinse, and dry hands GROOMING - STEP 1: Does the patient require assistance when grooming? Yes. GROOMING - STEP 2: Does the patient require the assistance of a helper? No. The patient only requires an assistive devic e, OR takes more than reasonable time to groom, OR there is a concern for safety as the patient groom s GROOMING - SCORE: 6-SOFIA BATHING: Activity did not occur on this shift BATHING - SCORE: 0-UNK DRESSING - UPPER BODY: T-shirt/pullover shirt (four steps) ARTICLES SCORE Total number of steps: 4 DRESSING - UPPER BODY - STEP 1: Does the patient require help when dressing above the waist? Yes. DRESSING - UPPER BODY - STEP 2: Does the patient require the assistance of a helper? Yes. DRESSING - UPPER BODY - STEP 3: Does the helper touch the patient while dressing? No. DRESSING - UPPER BODY - SCORE: 5-SUP DRESSING - LOWER BODY: ARTICLES SCORE Total number of steps: 3 DRESSING - LOWER BODY - STEP 1: Does the patient require help when dressing below the waist? Yes. DRESSING - LOWER BODY - STEP 2: Does the patient require the assistance of a helper? No. Patient requires an assistive device such as a resolution manager. OR s/he takes more than reasonable time as s/he dresses the lower body, OR there is a con cern for safety when s/he dresses the lower body DRESSING - LOWER BODY - SCORE: 6-SOFIA TOILETING: TOILETING - STEP 1: Does the patient require assistance with toileting? Yes. TOILETING - STEP 2: Does the patient require the assistance of a helper? Yes. TOILETING - STEP 3: How much assistance does the patient require from the helper? Only supervision TOILETING - SCORE: 5-SUP BLADDER MANAGEMENT: Activity did not occur on this shift BLADDER MANAGEMENT - SCORE: 7-IND BOWEL MANAGEMENT: BOWEL MANAGEMENT - STEP 1: Does the patient control bowels completely and intentionally without equipment devices or medications AND is always continent? Yes. BOWEL MANAGEMENT - SCORE: 7-IND TRANSFERS: BED, CHAIR, WHEELCHAIR: TRANSFERS: BED, CHAIR, WHEELCHAIR - STEP 1: Does the patient require assistance with bed, chair, or wheelchair transfers? Yes. TRANSFERS: BED, CHAIR, WHEELCHAIR - STEP 2: Does the patient require the assistance of a helper? Yes. TRANSFERS: BED, CHAIR, WHEELCHAIR - STEP 3: How much assistance does the patient require from the helper? Only supervision TRANSFERS: BED, CHAIR, WHEELCHAIR - SCORE: 5-SUP TRANSFERS: TOILET: TRANSFERS: TOILET - STEP 1: Does the patient require assistance with toilet transfers? Yes. TRANSFERS: TOILET - STEP 2: Does the patient require the assistance of a helper? Yes. TRANSFERS: TOILET - STEP 3: How much assistance does the patient require from the helper? Only supervision, cuing, coaxing, OR he lp to set out transfer equipment or to lock brakes and/or lift foot rests TRANSFERS: TOILET - SCORE: 5-SUP TRANSFERS: SHOWER: Activity did not occur on this shift TRANSFERS: SHOWER - SCORE: 0-UNK TRANSFERS: TUB: Activity did not occur on this shift TRANSFERS: TUB - SCORE: 0-UNK LOCOMOTION: WALK: Activity did not occur on this shift LOCOMOTION: WALK - SCORE: 0-UNK LOCOMOTION: WHEELCHAIR: Activity did not occur on this shift LOCOMOTION: WHEELCHAIR - SCORE: 0-UNK COMPREHENSION: COMPREHENSION - SCORE: 0-UNK EXPRESSION EXPRESSION - SCORE: 0-UNK SOCIAL INTERACTION: SOCIAL INTERACTION - SCORE: 0-UNK PROBLEM SOLVING: PROBLEM SOLVING - SCORE: 0-UNK MEMORY: MEMORY - SCORE: 0-UNK SIGNATURE PANEL: The following modified sections: Eating - Score, Grooming - Score, Bathing - Score, Dressing - Upper Body - Score, Dressing - Lower Body - Score, Toileting - Score, Bladder Management - Score, Bowel Man agement - Score, Transfers: Bed, Chair, Wheelchair - Score, Transfers: Toilet - Score, Transfers: Mary wer - Score, Transfers: Tub - Score, Locomotion: Walk - Score, Locomotion: Wheelchair - Score, Compre hension - Score, Expression - Score, Social Interaction - Score, Problem Solving - Score, Memory - Sc ore were [electronically] signed by Arjun Mckeon on SatJun 01 2018 14:22:12 GMT-0500 (Central Daylight Time)
[2018-06-01] MEDS: MELATONIN 3 MG TABLET PO PRN (20:11)
[2018-06-01] MEDS: ATORVASTATIN 10 MG TAB PO SCH (20:11)
[2018-06-02] MEDS: TRAMADOL HCL 50 MG TAB PO PRN ×3 (01:53→20:18)
--- NOTE | 2018-06-02 03:36 | FAST ---
SHIFT START DATE/TIME: 06/01/2018 19:00 (CDT) SHIFT END DATE/TIME: 06/02/2018 07:00 (CDT) NAME SIDDHARTHA WILDER DATE OF : 1950 DATE OF ADMISSION: 05/29/2018 11:23 (CDT) PHONE: AGE: 68 [facility]# [id number] GENDER: Female ENCOUNTER PHYSICIAN: Dr. Luis Torres M.D. ADMISSION DIAGNOSIS: - Orthopaedic Disorders 08 - Unilateral Hip Fracture (08.11) Right Displaced femoral Neck Fracture. - Orthopaedic Disorders 08 - Other Orthopaedic (08.9) Right Nondisplaced Distal Radius Fracture. EATING: EATING - STEP 1: Does the patient require assistance when eating? Yes. EATING - STEP 2: Does the patient require the assistance of a helper? Yes. EATING - STEP 3: Does the patient perform half or more of the eating tasks? Yes. EATING - STEP 4: Does the patient need only supervision, cuing, coaxing OR help to apply an orthosis OR help to cut fo od, open containers, pour liquids, or butter bread? Yes. EATING - SCORE: 5-SUP GROOMING: Comb/brush hair Oral care Wash, rinse, and dry face Wash, rinse, and dry hands GROOMING - STEP 1: Does the patient require assistance when grooming? Yes. GROOMING - STEP 2: Does the patient require the assistance of a helper? No. The patient only requires an assistive devic e, OR takes more than reasonable time to groom, OR there is a concern for safety as the patient groom s GROOMING - SCORE: 6-SOFIA BATHING: Activity did not occur on this shift BATHING - SCORE: 0-UNK DRESSING - UPPER BODY: Patient is not dressing in public clothing ARTICLES SCORE Total number of steps: 0 DRESSING - UPPER BODY - SCORE: 0-UNK DRESSING - LOWER BODY: Patient is not dressing in public clothing ARTICLES SCORE Total number of steps: 0 DRESSING - LOWER BODY - SCORE: 0-UNK TOILETING: TOILETING - STEP 1: Does the patient require assistance with toileting? Yes. TOILETING - STEP 2: Does the patient require the assistance of a helper? No. TOILETING - SCORE: 6-SOFIA BLADDER MANAGEMENT: BLADDER MANAGEMENT - STEP 1: Does the patient control the bladder completely and intentionally without equipment or devices or med ications, and is always continent? No. BLADDER MANAGEMENT - STEP 2: Does the patient require the assistance of a helper? No, patient requires and independently uses an a ssistive device, such as a urinal, bedpan, bedside commode, catheter, absorbent pad, or collecting de vice BLADDER MANAGEMENT - SCORE: 6-SOFIA BLADDER MANAGEMENT - FREQUENCY OF ACCIDENTS: BLADDER MANAGEMENT(FA) - STEP 1: How many accidents has the patient had during the current shift? 0 BOWEL MANAGEMENT: Activity did not occur on this shift BOWEL MANAGEMENT - SCORE: 7-IND TRANSFERS: BED, CHAIR, WHEELCHAIR: TRANSFERS: BED, CHAIR, WHEELCHAIR - STEP 1: Does the patient require assistance with bed, chair, or wheelchair transfers? Yes. TRANSFERS: BED, CHAIR, WHEELCHAIR - STEP 2: Does the patient require the assistance of a helper? No. Patient only requires an assistive device fo r bed, chair, wheelchair transfers such as a sliding board, grab bar, or brace, OR s/he takes more th an reasonable time, OR there is a safety concern when s/he performs the transfers TRANSFERS: BED, CHAIR, WHEELCHAIR - SCORE: 6-SOFIA TRANSFERS: TOILET: TRANSFERS: TOILET - STEP 1: Does the patient require assistance with toilet transfers? Yes. TRANSFERS: TOILET - STEP 2: Does the patient require the assistance of a helper? No. Patient only requires an assistive device norris ch as a grab bar or special seat, OR s/he takes more than reasonable time to perform toilet transfers , OR there is a safety concern when s/he performs toilet transfers. TRANSFERS: TOILET - SCORE: 6-SOFIA TRANSFERS: SHOWER: Activity did not occur on this shift TRANSFERS: SHOWER - SCORE: 0-UNK TRANSFERS: TUB: Activity did not occur on this shift TRANSFERS: TUB - SCORE: 0-UNK LOCOMOTION: WALK: Activity did not occur on this shift LOCOMOTION: WALK - SCORE: 0-UNK LOCOMOTION: WHEELCHAIR: Activity did not occur on this shift LOCOMOTION: WHEELCHAIR - SCORE: 0-UNK COMPREHENSION: COMPREHENSION: TYPE: Both COMPREHENSION - STEP 1: Does the patient require help to understand complex and abstract ideas (such as current events, finan neal, discharge planning, medical issues, relationships, etc)? No. COMPREHENSION - STEP 2: Does the patient need extra time, require an assistive device (such as glasses, hearing aids, or an a ugmentative communication system), OR does s/he have mild difficulty expressing complex and abstract ideas (including mild dysarthria or mild word-finding problems)? Yes. COMPREHENSION - SCORE: 6-SOFIA EXPRESSION EXPRESSION: TYPE: Both EXPRESSION - STEP 1: Does the patient require help expressing complex and abstract ideas (such as current events, finances , discharge planning, medical issues, relationships, etc)? No. EXPRESSION - STEP 2: Does the patient need extra time, require an assistive device (such as augmentive communication syste m or a communication board), OR does s/he have mild difficulty expressing complex and abstract ideas (including mild dysarthria or mild word-find problems)? No. EXPRESSION - SCORE: 7-IND SOCIAL INTERACTION: SOCIAL INTERACTION - STEP 1: Does the patient require a helper to interact with others in social and therapeutic situations? No. SOCIAL INTERACTION - STEP 2: Does the patient need extra time in social situations, OR does s/he interact with staff, other patien ts, and family members ONLY in structured environments, OR does s/he require medication for social in teraction? No. SOCIAL INTERACTION - SCORE: 7-IND PROBLEM SOLVING: PROBLEM SOLVING - STEP 1: Does the patient need help to solve complex problems such as managing a checking account or confronti ng interpersonal problems? No. PROBLEM SOLVING - STEP 2: Does the patient require extra time to make decisions or solve problems, OR does s/he have slight dif ficulty reading, initiating, or self-correcting in unfamiliar situations? No. PROBLEM SOLVING - SCORE: 7-IND MEMORY: MEMORY - STEP 1: Does the patient need help to remember frequently encountered people, daily routines, and executing r equests? No. MEMORY - STEP 2: Does the patient have slight difficulty recognizing frequently encountered people, daily routines, or executing requests without the need for repetition or using self-initiated or environmental cues to remember? No. MEMORY - SCORE: 7-IND SIGNATURE PANEL: The following modified sections: Eating - Score, Grooming - Score, Bathing - Score, Dressing - Upper Body - Score, Dressing - Lower Body - Score, Toileting - Score, Bladder Management - Score, Bowel Man agement - Score, Transfers: Bed, Chair, Wheelchair - Score, Transfers: Toilet - Score, Transfers: Mary wer - Score, Transfers: Tub - Score, Locomotion: Walk - Score, Locomotion: Wheelchair - Score, Compre hension - Score, Expression - Score, Social Interaction - Score, Problem Solving - Score, Memory - Sc ore were [electronically] signed by Gracie MunguiaNVilma on SatJun 02 2018 03:20:23 GMT-0500 ( Central Daylight Time)
[2018-06-02] MEDS: PANTOPRAZOLE 40MG TABLET PO SCH (06:29)
[2018-06-02] MEDS: ENOXAPARIN 40 MG/0.4 ML SQ SCH (07:10)
[2018-06-02] MEDS: HYDROCODONE/APAP 5/325 MG TAB PO PRN ×2 (07:14→17:11)
[2018-06-02] MEDS: INSULIN -REGULAR HUMAN 50 UNIT/0.5 ML ML SQ SCH ×4 (07:30→20:20)
[2018-06-02] MEDS: FE SULF/FA/VIT B COMP & C TAB PO SCH (08:35)
[2018-06-02] MEDS: CYANOCOBALAMIN 1,000 MCG TAB PO SCH (08:35)
[2018-06-02] MEDS: GABAPENTIN 300 MG CAP PO SCH ×2 (08:36→20:18)
[2018-06-02] MEDS: VITAMIN D 1000 UNIT TAB PO SCH (08:36)
[2018-06-02] MEDS: DOCUSATE NA 100 MG CAP PO SCH (08:36)
[2018-06-02] MEDS: levoFLOXacin 500 MG TAB PO SCH (08:36)
[2018-06-02] MEDS: FERROUS SULFATE 325 MG TAB PO SCH (08:36)
[2018-06-02] MEDS: ASCORBIC ACID 500 MG TABLET PO SCH (08:36)
[2018-06-02] MEDS: LIDOCAINE 5% PATCH TOP SCH (08:37)
[2018-06-02] MEDS: ASPIRIN EC 81 MG TAB PO SCH (08:37)
[2018-06-02] MEDS: PROMOD 30 ML DOSE PO SCH ×2 (08:37→20:19)
[2018-06-02] MEDS: METFORMIN HCL 500 MG TAB PO SCH (08:37)
--- NOTE | 2018-06-02 10:35 | FAST ---
ENCOUNTER DATE AND TIME: 05/30/2018 08:00 (CDT) NAME SIDDHARTHA WILDER DATE OF : 1950 DATE OF ADMISSION: 05/29/2018 11:23 (CDT) PHONE: AGE: 68 [facility]# [id number] GENDER: Female ENCOUNTER PHYSICIAN: Dr. Luis Torres M.D. ADMISSION DIAGNOSIS: - Orthopaedic Disorders 08 - Unilateral Hip Fracture (08.11) Right Displaced femoral Neck Fracture. - Orthopaedic Disorders 08 - Other Orthopaedic (08.9) Right Nondisplaced Distal Radius Fracture. EATING: EATING - STEP 1: Does the patient require assistance when eating? No. EATING - SCORE: 7-IND GROOMING: Comb/brush hair Oral care Wash, rinse, and dry face Wash, rinse, and dry hands GROOMING - STEP 1: Does the patient require assistance when grooming? No. GROOMING - SCORE: 7-IND BATHING: Abdomen Buttocks Chest Left arm Left lower leg and foot Left upper leg Perineal area Right arm Right lower leg and foot Right upper leg BATHING - STEP 1: Does the patient require assistance when bathing? Yes. BATHING - STEP 2: Does the patient require the assistance of a helper? Yes. BATHING - STEP 3: How much assistance does the patient require from the helper? Only incidental help such as placement of a wash cloth in his/her hand a few times as s/he bathes OR help to bathe just one or two areas of the body BATHING - SCORE: 4-MIN DRESSING - UPPER BODY: T-shirt/pullover shirt (four steps) ARTICLES SCORE Total number of steps: 4 DRESSING - UPPER BODY - STEP 1: Does the patient require help when dressing above the waist? Yes. DRESSING - UPPER BODY - STEP 2: Does the patient require the assistance of a helper? Yes. DRESSING - UPPER BODY - STEP 3: Does the helper touch the patient while dressing? No. DRESSING - UPPER BODY - SCORE: 5-SUP DRESSING - LOWER BODY: Elastic waist pants (three steps) Slip-on shoe - Left foot (one step) Slip-on shoe - Right foot (one step) Underwear (three steps) ARTICLES SCORE Total number of steps: 8 DRESSING - LOWER BODY - STEP 1: Does the patient require help when dressing below the waist? Yes. DRESSING - LOWER BODY - STEP 2: Does the patient require the assistance of a helper? Yes. DRESSING - LOWER BODY - STEP 3: Does the helper touch the patient while dressing? Yes. DRESSING - LOWER BODY - STEP 4: How many of the total steps does the patient complete on his/her own? 2 DRESSING - LOWER BODY - STEP 5: Does patient require total assistance for dressing below the waist such as the helper holding clothin g and performing basically all the activities? No. DRESSING - LOWER BODY - SCORE: 2-MAX TOILETING: Activity did not occur on this shift TOILETING - SCORE: 0-UNK BLADDER MANAGEMENT: Activity did not occur on this shift BLADDER MANAGEMENT - SCORE: 7-IND BOWEL MANAGEMENT: Activity did not occur on this shift BOWEL MANAGEMENT - SCORE: 7-IND TRANSFERS: BED, CHAIR, WHEELCHAIR: Activity did not occur on this shift TRANSFERS: BED, CHAIR, WHEELCHAIR - SCORE: 0-UNK TRANSFERS: TOILET: Activity did not occur on this shift TRANSFERS: TOILET - SCORE: 0-UNK TRANSFERS: SHOWER: TRANSFERS: SHOWER - STEP 1: Does the patient require assistance with shower transfers? Yes. TRANSFERS: SHOWER - STEP 2: Does the patient require the assistance of a helper? Yes. TRANSFERS: SHOWER - STEP 3: How much assistance does the patient require from the helper? Only incidental help such as contact gu arding or steadying during shower transfers, or help to lift one leg into the shower TRANSFERS: SHOWER - SCORE: 4-MIN TRANSFERS: TUB: Activity did not occur on this shift TRANSFERS: TUB - SCORE: 0-UNK LOCOMOTION: WALK: Activity did not occur on this shift LOCOMOTION: WALK - SCORE: 0-UNK LOCOMOTION: WHEELCHAIR: Activity did not occur on this shift LOCOMOTION: WHEELCHAIR - SCORE: 0-UNK LOCOMOTION: STAIRS: Activity did not occur on this shift LOCOMOTION: STAIRS - SCORE: 0-UNK COMPREHENSION: COMPREHENSION: TYPE: Both COMPREHENSION - STEP 1: Does the patient require help to understand complex and abstract ideas (such as current events, finan neal, discharge planning, medical issues, relationships, etc)? No. COMPREHENSION - STEP 2: Does the patient need extra time, require an assistive device (such as glasses, hearing aids, or an a ugmentative communication system), OR does s/he have mild difficulty expressing complex and abstract ideas (including mild dysarthria or mild word-finding problems)? No. COMPREHENSION - SCORE: 7-IND EXPRESSION EXPRESSION: TYPE: Both EXPRESSION - STEP 1: Does the patient require help expressing complex and abstract ideas (such as current events, finances , discharge planning, medical issues, relationships, etc)? No. EXPRESSION - STEP 2: Does the patient need extra time, require an assistive device (such as augmentive communication syste m or a communication board), OR does s/he have mild difficulty expressing complex and abstract ideas (including mild dysarthria or mild word-find problems)? No. EXPRESSION - SCORE: 7-IND SOCIAL INTERACTION: SOCIAL INTERACTION - STEP 1: Does the patient require a helper to interact with others in social and therapeutic situations? No. SOCIAL INTERACTION - STEP 2: Does the patient need extra time in social situations, OR does s/he interact with staff, other patien ts, and family members ONLY in structured environments, OR does s/he require medication for social in teraction? No. SOCIAL INTERACTION - SCORE: 7-IND PROBLEM SOLVING: PROBLEM SOLVING - STEP 1: Does the patient need help to solve complex problems such as managing a checking account or confronti ng interpersonal problems? No. PROBLEM SOLVING - STEP 2: Does the patient require extra time to make decisions or solve problems, OR does s/he have slight dif ficulty reading, initiating, or self-correcting in unfamiliar situations? No. PROBLEM SOLVING - SCORE: 7-IND MEMORY: MEMORY - STEP 1: Does the patient need help to remember frequently encountered people, daily routines, and executing r equests? No. MEMORY - STEP 2: Does the patient have slight difficulty recognizing frequently encountered people, daily routines, or executing requests without the need for repetition or using self-initiated or environmental cues to remember? No. MEMORY - SCORE: 7-IND SIGNATURE PANEL: The following modified sections: Eating - Score, Grooming - Score, Bathing - Score, Dressing - Upper Body - Score, Dressing - Lower Body - Score, Toileting - Score, Transfers: Bed, Chair, Wheelchair - S core, Transfers: Toilet - Score, Transfers: Tub - Score, Transfers: Shower - Score, Comprehension - S core, Expression - Score, Social Interaction - Score, Problem Solving - Score, Memory - Score were [e lectronically] signed by Jayshree Rios OT on SatJun 02 2018 10:34:44 GMT-0500 ([facility])
--- NOTE | 2018-06-02 10:55 | FAST ---
ENCOUNTER DATE AND TIME: 06/01/2018 08:00 (CDT) NAME SIDDHARTHA WILDER DATE OF : 1950 DATE OF ADMISSION: 05/29/2018 11:23 (CDT) PHONE: AGE: 68 N# [id number] GENDER: Female ENCOUNTER PHYSICIAN: Dr. Luis Torres M.D. ADMISSION DIAGNOSIS: - Orthopaedic Disorders 08 - Unilateral Hip Fracture (08.11) Right Displaced femoral Neck Fracture. - Orthopaedic Disorders 08 - Other Orthopaedic (08.9) Right Nondisplaced Distal Radius Fracture. EATING: EATING - STEP 1: Does the patient require assistance when eating? No. EATING - SCORE: 7-IND GROOMING: Comb/brush hair Oral care Wash, rinse, and dry face Wash, rinse, and dry hands GROOMING - STEP 1: Does the patient require assistance when grooming? No. GROOMING - SCORE: 7-IND BATHING: Abdomen Buttocks Chest Left arm Left lower leg and foot Left upper leg Perineal area Right arm Right lower leg and foot Right upper leg BATHING - STEP 1: Does the patient require assistance when bathing? Yes. BATHING - STEP 2: Does the patient require the assistance of a helper? Yes. BATHING - STEP 3: How much assistance does the patient require from the helper? Only supervision, cuing, coaxing, instr uctions, encouragement BATHING - SCORE: 5-SUP DRESSING - UPPER BODY: T-shirt/pullover shirt (four steps) ARTICLES SCORE Total number of steps: 4 DRESSING - UPPER BODY - STEP 1: Does the patient require help when dressing above the waist? No. DRESSING - UPPER BODY - SCORE: 7-IND DRESSING - LOWER BODY: Elastic waist pants (three steps) Slip-on shoe - Left foot (one step) Slip-on shoe - Right foot (one step) Underwear (three steps) ARTICLES SCORE Total number of steps: 8 DRESSING - LOWER BODY - STEP 1: Does the patient require help when dressing below the waist? Yes. DRESSING - LOWER BODY - STEP 2: Does the patient require the assistance of a helper? No. Patient requires an assistive device such as a rosin barrel filler. OR s/he takes more than reasonable time as s/he dresses the lower body, OR there is a con cern for safety when s/he dresses the lower body DRESSING - LOWER BODY - SCORE: 6-SOFIA TOILETING: Activity did not occur on this shift TOILETING - SCORE: 0-UNK BLADDER MANAGEMENT: Activity did not occur on this shift BLADDER MANAGEMENT - SCORE: 7-IND BOWEL MANAGEMENT: Activity did not occur on this shift BOWEL MANAGEMENT - SCORE: 7-IND TRANSFERS: BED, CHAIR, WHEELCHAIR: Activity did not occur on this shift TRANSFERS: BED, CHAIR, WHEELCHAIR - SCORE: 0-UNK TRANSFERS: TOILET: Activity did not occur on this shift TRANSFERS: TOILET - SCORE: 0-UNK TRANSFERS: SHOWER: TRANSFERS: SHOWER - STEP 1: Does the patient require assistance with shower transfers? Yes. TRANSFERS: SHOWER - STEP 2: Does the patient require the assistance of a helper? No. The patient only uses an assistive device, t akes more than reasonable time, OR there is a concern for safety when s/he performs transfers. TRANSFERS: SHOWER - SCORE: 6-SOFIA TRANSFERS: TUB: Activity did not occur on this shift TRANSFERS: TUB - SCORE: 0-UNK LOCOMOTION: WALK: Activity did not occur on this shift LOCOMOTION: WALK - SCORE: 0-UNK LOCOMOTION: WHEELCHAIR: Activity did not occur on this shift LOCOMOTION: WHEELCHAIR - SCORE: 0-UNK LOCOMOTION: STAIRS: Activity did not occur on this shift LOCOMOTION: STAIRS - SCORE: 0-UNK COMPREHENSION: COMPREHENSION: TYPE: Both COMPREHENSION - STEP 1: Does the patient require help to understand complex and abstract ideas (such as current events, finan neal, discharge planning, medical issues, relationships, etc)? No. COMPREHENSION - STEP 2: Does the patient need extra time, require an assistive device (such as glasses, hearing aids, or an a ugmentative communication system), OR does s/he have mild difficulty expressing complex and abstract ideas (including mild dysarthria or mild word-finding problems)? No. COMPREHENSION - SCORE: 7-IND EXPRESSION EXPRESSION: TYPE: Both EXPRESSION - STEP 1: Does the patient require help expressing complex and abstract ideas (such as current events, finances , discharge planning, medical issues, relationships, etc)? No. EXPRESSION - STEP 2: Does the patient need extra time, require an assistive device (such as augmentive communication syste m or a communication board), OR does s/he have mild difficulty expressing complex and abstract ideas (including mild dysarthria or mild word-find problems)? No. EXPRESSION - SCORE: 7-IND SOCIAL INTERACTION: SOCIAL INTERACTION - STEP 1: Does the patient require a helper to interact with others in social and therapeutic situations? No. SOCIAL INTERACTION - STEP 2: Does the patient need extra time in social situations, OR does s/he interact with staff, other patien ts, and family members ONLY in structured environments, OR does s/he require medication for social in teraction? No. SOCIAL INTERACTION - SCORE: 7-IND PROBLEM SOLVING: PROBLEM SOLVING - STEP 1: Does the patient need help to solve complex problems such as managing a checking account or confronti ng interpersonal problems? No. PROBLEM SOLVING - STEP 2: Does the patient require extra time to make decisions or solve problems, OR does s/he have slight dif ficulty reading, initiating, or self-correcting in unfamiliar situations? No. PROBLEM SOLVING - SCORE: 7-IND MEMORY: MEMORY - STEP 1: Does the patient need help to remember frequently encountered people, daily routines, and executing r equests? No. MEMORY - STEP 2: Does the patient have slight difficulty recognizing frequently encountered people, daily routines, or executing requests without the need for repetition or using self-initiated or environmental cues to remember? No. MEMORY - SCORE: 7-IND SIGNATURE PANEL: The following modified sections: Eating - Score, Grooming - Score, Bathing - Score, Dressing - Upper Body - Score, Dressing - Lower Body - Score, Toileting - Score, Transfers: Bed, Chair, Wheelchair - S core, Transfers: Toilet - Score, Transfers: Tub - Score, Transfers: Shower - Score, Comprehension - S core, Expression - Score, Social Interaction - Score, Problem Solving - Score, Memory - Score were [e lectronically] signed by Jayshree Rios OT on SatJun 02 2018 10:54:15 T-0500 ([facility])
[2018-06-02] MEDS ORDERED: MAGNES/ALUMIN/SIMET 30ML UCUP PO PRN (12:18)
[2018-06-02] MEDS: ONDANSETRON 4 MG (ODT) TAB PO PRN (12:28)
[2018-06-02] MEDS ORDERED: MAGNESIUM HYDROXIDE 8% 30 ML PO PRN (13:17)
--- NOTE | 2018-06-02 14:26 | RAD REPORT ---
EXAM DESCRIPTION: RAD - Knee Right 2 View - 06/02/2018 2:04 pm CLINICAL HISTORY: Increasing knee pain COMPARISON: None. FINDINGS: No fracture, dislocation or periosteal reaction.No joint effusion seen. No joint space mario rowing. No foreign body or soft tissue abnormality. IMPRESSION: Negative right knee. Clinical concerns for internal derangement or occult bony injury could be further assessed with MR imaging.
--- NOTE | 2018-06-02 14:35 | FAST ---
SHIFT START DATE/TIME: 06/02/2018 07:00 (CDT) SHIFT END DATE/TIME: 06/02/2018 19:00 (CDT) NAME SIDDHARTHA WILDER DATE OF : 1950 DATE OF ADMISSION: 05/29/2018 11:23 (CDT) PHONE: AGE: 68 N# [id number] GENDER: Female ENCOUNTER PHYSICIAN: Dr. Luis Torres M.D. ADMISSION DIAGNOSIS: - Orthopaedic Disorders 08 - Unilateral Hip Fracture (08.11) Right Displaced femoral Neck Fracture. - Orthopaedic Disorders 08 - Other Orthopaedic (08.9) Right Nondisplaced Distal Radius Fracture. EATING: EATING - STEP 1: Does the patient require assistance when eating? Yes. EATING - STEP 2: Does the patient require the assistance of a helper? No, patient only requires an assistive device, O R s/he takes more than reasonable time to eat, OR there is a safety concern, OR s/he requires modifie d food consistency EATING - SCORE: 6-SOFIA GROOMING: Comb/brush hair Oral care Patient applied make-up Wash, rinse, and dry face Wash, rinse, and dry hands GROOMING - STEP 1: Does the patient require assistance when grooming? Yes. GROOMING - STEP 2: Does the patient require the assistance of a helper? No. The patient only requires an assistive devic e, OR takes more than reasonable time to groom, OR there is a concern for safety as the patient groom s GROOMING - SCORE: 6-SOFIA BATHING: Activity did not occur on this shift BATHING - SCORE: 0-UNK DRESSING - UPPER BODY: T-shirt/pullover shirt (four steps) ARTICLES SCORE Total number of steps: 4 DRESSING - UPPER BODY - STEP 1: Does the patient require help when dressing above the waist? Yes. DRESSING - UPPER BODY - STEP 2: Does the patient require the assistance of a helper? No. Patient only requires an assistive device, s uch as a button hook, velcro, or brand analyst. OR s/he takes more than reasonable time as s/he dresses the upper body. OR there is a concern for safety when s/he dresses the upper body DRESSING - UPPER BODY - SCORE: 6-SOFIA DRESSING - LOWER BODY: Elastic waist pants (three steps) Slip-on shoe - Left foot (one step) Slip-on shoe - Right foot (one step) Underwear (three steps) ARTICLES SCORE Total number of steps: 8 DRESSING - LOWER BODY - STEP 1: Does the patient require help when dressing below the waist? Yes. DRESSING - LOWER BODY - STEP 2: Does the patient require the assistance of a helper? No. Patient requires an assistive device such as a brand analyst. OR s/he takes more than reasonable time as s/he dresses the lower body, OR there is a con cern for safety when s/he dresses the lower body DRESSING - LOWER BODY - SCORE: 6-SOFIA TOILETING: TOILETING - STEP 1: Does the patient require assistance with toileting? No. TOILETING - SCORE: 7-IND BLADDER MANAGEMENT: BLADDER MANAGEMENT - STEP 1: Does the patient control the bladder completely and intentionally without equipment or devices or med ications, and is always continent? Yes. BLADDER MANAGEMENT - SCORE: 7-IND BLADDER MANAGEMENT - FREQUENCY OF ACCIDENTS: BLADDER MANAGEMENT(FA) - STEP 1: How many accidents has the patient had during the current shift? 0 BOWEL MANAGEMENT: Activity did not occur on this shift BOWEL MANAGEMENT - SCORE: 7-IND BOWEL MANAGEMENT - FREQUENCY OF ACCIDENTS: BOWEL MANAGEMENT(FA) - STEP 1: How many accidents has the patient had during the current shift? 0 TRANSFERS: BED, CHAIR, WHEELCHAIR: TRANSFERS: BED, CHAIR, WHEELCHAIR - STEP 1: Does the patient require assistance with bed, chair, or wheelchair transfers? Yes. TRANSFERS: BED, CHAIR, WHEELCHAIR - STEP 2: Does the patient require the assistance of a helper? No. Patient only requires an assistive device fo r bed, chair, wheelchair transfers such as a sliding board, grab bar, or brace, OR s/he takes more th an reasonable time, OR there is a safety concern when s/he performs the transfers TRANSFERS: BED, CHAIR, WHEELCHAIR - SCORE: 6-SOFIA TRANSFERS: TOILET: TRANSFERS: TOILET - STEP 1: Does the patient require assistance with toilet transfers? No. TRANSFERS: TOILET - SCORE: 7-IND TRANSFERS: SHOWER: Activity did not occur on this shift TRANSFERS: SHOWER - SCORE: 0-UNK TRANSFERS: TUB: Activity did not occur on this shift TRANSFERS: TUB - SCORE: 0-UNK LOCOMOTION: WALK: LOCOMOTION: WALK - STEP 1: Does the patient need help to walk 150 feet? Yes. LOCOMOTION: WALK - STEP 2: How much assistance does the patient require to walk a minimum of 150 feet? Only supervision, cuing, or coaxing LOCOMOTION: WALK - SCORE: 5-SUP LOCOMOTION: WHEELCHAIR: Activity did not occur on this shift LOCOMOTION: WHEELCHAIR - SCORE: 0-UNK COMPREHENSION: COMPREHENSION: TYPE: Both COMPREHENSION - STEP 1: Does the patient require help to understand complex and abstract ideas (such as current events, finan neal, discharge planning, medical issues, relationships, etc)? No. COMPREHENSION - STEP 2: Does the patient need extra time, require an assistive device (such as glasses, hearing aids, or an a ugmentative communication system), OR does s/he have mild difficulty expressing complex and abstract ideas (including mild dysarthria or mild word-finding problems)? No. COMPREHENSION - SCORE: 7-IND EXPRESSION EXPRESSION: TYPE: Both EXPRESSION - STEP 1: Does the patient require help expressing complex and abstract ideas (such as current events, finances , discharge planning, medical issues, relationships, etc)? No. EXPRESSION - STEP 2: Does the patient need extra time, require an assistive device (such as augmentive communication syste m or a communication board), OR does s/he have mild difficulty expressing complex and abstract ideas (including mild dysarthria or mild word-find problems)? No. EXPRESSION - SCORE: 7-IND SOCIAL INTERACTION: SOCIAL INTERACTION - STEP 1: Does the patient require a helper to interact with others in social and therapeutic situations? No. SOCIAL INTERACTION - STEP 2: Does the patient need extra time in social situations, OR does s/he interact with staff, other patien ts, and family members ONLY in structured environments, OR does s/he require medication for social in teraction? No. SOCIAL INTERACTION - SCORE: 7-IND PROBLEM SOLVING: PROBLEM SOLVING - STEP 1: Does the patient need help to solve complex problems such as managing a checking account or confronti ng interpersonal problems? Yes. PROBLEM SOLVING - STEP 2: Does the patient solve basic routine problems half or more of the time? Yes. PROBLEM SOLVING - STEP 3: How often does the patient need help to solve basic routine problems? Less than 10% of the time PROBLEM SOLVING - SCORE: 5-SUP MEMORY: MEMORY - STEP 1: Does the patient need help to remember frequently encountered people, daily routines, and executing r equests? No. MEMORY - STEP 2: Does the patient have slight difficulty recognizing frequently encountered people, daily routines, or executing requests without the need for repetition or using self-initiated or environmental cues to remember? No. MEMORY - SCORE: 7-IND SIGNATURE PANEL: The following modified sections: Eating - Score, Grooming - Score, Bathing - Score, Dressing - Upper Body - Score, Dressing - Lower Body - Score, Toileting - Score, Bladder Management - Score, Bowel Man agement - Score, Transfers: Bed, Chair, Wheelchair - Score, Transfers: Toilet - Score, Transfers: Mary wer - Score, Transfers: Tub - Score, Locomotion: Walk - Score, Locomotion: Wheelchair - Score, Compre hension - Score, Expression - Score, Social Interaction - Score, Problem Solving - Score, Memory - Sc ore were [electronically] signed by Karime Baires C.N.A. on SatJun 02 2018 14:34:22 T-0500 ([facility])
[2018-06-02] MEDS: MELATONIN 3 MG TABLET PO PRN (20:18)
[2018-06-02] MEDS: DOCUSATE NA/SENNA CONC 1 TAB PO SCH (20:18)
[2018-06-02] MEDS: ATORVASTATIN 10 MG TAB PO SCH (20:18)
--- NOTE | 2018-06-02 20:22 | P.PN ---
Subjective Date of Service: 06/02/18 Subjective: No C/O voiced, Tolerating diet, Ambulating, Improving, Working w/ PT (He is doing well with physical and occupational therapy. He ambulated 850' with SBA using R platform RW. He ascended and descended 5 stairs with CG using left sided HR. He required verbal cues for proper sequencing. His blood sugars ranged 104 to 144.), Doing well Physical Examination - Vital Signs Temperature: 97.5 F Blood Pressure: 133/66 Pulse: 80 Respirations: 16 Pulse Ox (%): 98
[2018-06-03] MEDS: HYDROCODONE/APAP 5/325 MG TAB PO PRN ×4 (00:16→22:24)
--- NOTE | 2018-06-03 01:50 | FAST ---
SHIFT START DATE/TIME: 06/02/2018 19:00 (CDT) SHIFT END DATE/TIME: 06/03/2018 07:00 (CDT) NAME SIDDHARTHA WILDER DATE OF : 1950 DATE OF ADMISSION: 05/29/2018 11:23 (CDT) PHONE: AGE: 68 [facility]# [id number] GENDER: Female ENCOUNTER PHYSICIAN: Dr. Luis Torres M.D. ADMISSION DIAGNOSIS: - Orthopaedic Disorders 08 - Unilateral Hip Fracture (08.11) Right Displaced femoral Neck Fracture. - Orthopaedic Disorders 08 - Other Orthopaedic (08.9) Right Nondisplaced Distal Radius Fracture. EATING: Activity did not occur on this shift EATING - SCORE: 0-UNK GROOMING: Wash, rinse, and dry hands GROOMING - STEP 1: Does the patient require assistance when grooming? Yes. GROOMING - STEP 2: Does the patient require the assistance of a helper? Yes. GROOMING - STEP 3: How much assistance does the patient require from the helper? Only prior equipment preparation/set up from the helper GROOMING - SCORE: 5-SUP BATHING: Activity did not occur on this shift BATHING - SCORE: 0-UNK DRESSING - UPPER BODY: Patient is not dressing in public clothing ARTICLES SCORE Total number of steps: 0 DRESSING - UPPER BODY - SCORE: 0-UNK DRESSING - LOWER BODY: Patient is not dressing in public clothing ARTICLES SCORE Total number of steps: 0 DRESSING - LOWER BODY - SCORE: 0-UNK TOILETING: TOILETING - STEP 1: Does the patient require assistance with toileting? Yes. TOILETING - STEP 2: Does the patient require the assistance of a helper? Yes. TOILETING - STEP 3: How much assistance does the patient require from the helper? Only supervision TOILETING - SCORE: 5-SUP BLADDER MANAGEMENT: BLADDER MANAGEMENT - STEP 1: Does the patient control the bladder completely and intentionally without equipment or devices or med ications, and is always continent? Yes. BLADDER MANAGEMENT - SCORE: 7-IND BOWEL MANAGEMENT: Activity did not occur on this shift BOWEL MANAGEMENT - SCORE: 7-IND TRANSFERS: BED, CHAIR, WHEELCHAIR: TRANSFERS: BED, CHAIR, WHEELCHAIR - STEP 1: Does the patient require assistance with bed, chair, or wheelchair transfers? Yes. TRANSFERS: BED, CHAIR, WHEELCHAIR - STEP 2: Does the patient require the assistance of a helper? Yes. TRANSFERS: BED, CHAIR, WHEELCHAIR - STEP 3: How much assistance does the patient require from the helper? Steadying/guiding assistance TRANSFERS: BED, CHAIR, WHEELCHAIR - SCORE: 4-MIN TRANSFERS: TOILET: TRANSFERS: TOILET - STEP 1: Does the patient require assistance with toilet transfers? Yes. TRANSFERS: TOILET - STEP 2: Does the patient require the assistance of a helper? Yes. TRANSFERS: TOILET - STEP 3: How much assistance does the patient require from the helper? Only supervision, cuing, coaxing, OR he lp to set out transfer equipment or to lock brakes and/or lift foot rests TRANSFERS: TOILET - SCORE: 5-SUP TRANSFERS: SHOWER: Activity did not occur on this shift TRANSFERS: SHOWER - SCORE: 0-UNK TRANSFERS: TUB: Activity did not occur on this shift TRANSFERS: TUB - SCORE: 0-UNK LOCOMOTION: WALK: Activity did not occur on this shift LOCOMOTION: WALK - SCORE: 0-UNK LOCOMOTION: WHEELCHAIR: Activity did not occur on this shift LOCOMOTION: WHEELCHAIR - SCORE: 0-UNK COMPREHENSION: COMPREHENSION - STEP 1: Does the patient require help to understand complex and abstract ideas (such as current events, finan neal, discharge planning, medical issues, relationships, etc)? No. COMPREHENSION - STEP 2: Does the patient need extra time, require an assistive device (such as glasses, hearing aids, or an a ugmentative communication system), OR does s/he have mild difficulty expressing complex and abstract ideas (including mild dysarthria or mild word-finding problems)? Yes. COMPREHENSION - SCORE: 6-SOFIA EXPRESSION EXPRESSION - STEP 1: Does the patient require help expressing complex and abstract ideas (such as current events, finances , discharge planning, medical issues, relationships, etc)? No. EXPRESSION - STEP 2: Does the patient need extra time, require an assistive device (such as augmentive communication syste m or a communication board), OR does s/he have mild difficulty expressing complex and abstract ideas (including mild dysarthria or mild word-find problems)? No. EXPRESSION - SCORE: 7-IND SOCIAL INTERACTION: SOCIAL INTERACTION - STEP 1: Does the patient require a helper to interact with others in social and therapeutic situations? No. SOCIAL INTERACTION - STEP 2: Does the patient need extra time in social situations, OR does s/he interact with staff, other patien ts, and family members ONLY in structured environments, OR does s/he require medication for social in teraction? No. SOCIAL INTERACTION - SCORE: 7-IND PROBLEM SOLVING: PROBLEM SOLVING - STEP 1: Does the patient need help to solve complex problems such as managing a checking account or confronti ng interpersonal problems? No. PROBLEM SOLVING - STEP 2: Does the patient require extra time to make decisions or solve problems, OR does s/he have slight dif ficulty reading, initiating, or self-correcting in unfamiliar situations? Yes, patient needs extra ti me. PROBLEM SOLVING - SCORE: 6-SOFIA MEMORY: MEMORY - STEP 1: Does the patient need help to remember frequently encountered people, daily routines, and executing r equests? No. MEMORY - STEP 2: Does the patient have slight difficulty recognizing frequently encountered people, daily routines, or executing requests without the need for repetition or using self-initiated or environmental cues to remember? Yes. MEMORY - SCORE: 6-SOFIA SIGNATURE PANEL: The following modified sections: Eating - Score, Grooming - Score, Dressing - Upper Body - Score, Parmjit ssing - Lower Body - Score, Toileting - Score, Bladder Management - Score, Bowel Management - Score, Transfers: Bed, Chair, Wheelchair - Score, Transfers: Toilet - Score, Transfers: Shower - Score, Sotomayor sfers: Tub - Score, Locomotion: Walk - Score, Locomotion: Wheelchair - Score, Comprehension - Score, Expression - Score, Social Interaction - Score, Problem Solving - Score, Memory - Score were [electro nically] signed by Alma Rosa Judd CNA on SatJun 03 2018 01:50:09 T-0500 (Central Daylight Time)
[2018-06-03] MEDS: PANTOPRAZOLE 40MG TABLET PO SCH (06:28)
[2018-06-03] MEDS: ENOXAPARIN 40 MG/0.4 ML SQ SCH (06:31)
[2018-06-03] MEDS: INSULIN -REGULAR HUMAN 50 UNIT/0.5 ML ML SQ SCH ×4 (07:30→20:45)
[2018-06-03] MEDS: ASPIRIN EC 81 MG TAB PO SCH (08:14)
[2018-06-03] MEDS: METFORMIN HCL 500 MG TAB PO SCH (08:14)
[2018-06-03] MEDS: CYANOCOBALAMIN 1,000 MCG TAB PO SCH (08:14)
[2018-06-03] MEDS: FE SULF/FA/VIT B COMP & C TAB PO SCH (08:14)
[2018-06-03] MEDS: GABAPENTIN 300 MG CAP PO SCH ×2 (08:14→20:16)
[2018-06-03] MEDS: ASCORBIC ACID 500 MG TABLET PO SCH (08:14)
[2018-06-03] MEDS: VITAMIN D 1000 UNIT TAB PO SCH (08:14)
[2018-06-03] MEDS: FERROUS SULFATE 325 MG TAB PO SCH (08:15)
[2018-06-03] MEDS: levoFLOXacin 500 MG TAB PO SCH (08:15)
[2018-06-03] MEDS: LIDOCAINE 5% PATCH TOP SCH (08:16)
[2018-06-03] MEDS: TRAMADOL HCL 50 MG TAB PO PRN ×2 (08:36→18:19)
[2018-06-03] MEDS: PROMOD 30 ML DOSE PO SCH ×2 (08:37→20:16)
[2018-06-03] MEDS ORDERED: FLEET ENEMA ADULT PR PRN (09:21)
--- NOTE | 2018-06-03 10:40 | RAD REPORT ---
EXAM DESCRIPTION: RAD - Abdomen 1 View (KUB) - 06/03/2018 9:56 am CLINICAL HISTORY: Abdomen pain. /constipation FINDINGS: The bowel gas pattern is unremarkable. A large amount of stool is present throughout the colon. Small round calcification adjacent to the right transverse process of L5 represents a phlebolith. A c ouple of phleboliths within the pelvis are present.
--- NOTE | 2018-06-03 13:56 | FAST ---
ENCOUNTER DATE AND TIME: 06/02/2018 08:00 (CDT) NAME SIDDHARTHA WILDER DATE OF : 1950 DATE OF ADMISSION: 05/29/2018 11:23 (CDT) PHONE: AGE: 68 N# [id number] GENDER: Female ENCOUNTER PHYSICIAN: Dr. Luis Torres M.D. ADMISSION DIAGNOSIS: - Orthopaedic Disorders 08 - Unilateral Hip Fracture (08.11) Right Displaced femoral Neck Fracture. - Orthopaedic Disorders 08 - Other Orthopaedic (08.9) Right Nondisplaced Distal Radius Fracture. EATING: Activity did not occur on this shift EATING - SCORE: 0-UNK GROOMING: Activity did not occur on this shift GROOMING - SCORE: 0-UNK BATHING: Activity did not occur on this shift BATHING - SCORE: 0-UNK DRESSING - UPPER BODY: Activity did not occur on this shift Patient is not dressing in public clothing ARTICLES SCORE Total number of steps: 0 DRESSING - UPPER BODY - SCORE: 0-UNK DRESSING - LOWER BODY: Activity did not occur on this shift Patient is not dressing in public clothing ARTICLES SCORE Total number of steps: 0 DRESSING - LOWER BODY - SCORE: 0-UNK TOILETING: Activity did not occur on this shift TOILETING - SCORE: 0-UNK BLADDER MANAGEMENT: Activity did not occur on this shift BLADDER MANAGEMENT - SCORE: 7-IND BOWEL MANAGEMENT: Activity did not occur on this shift BOWEL MANAGEMENT - SCORE: 7-IND TRANSFERS: BED, CHAIR, WHEELCHAIR: TRANSFERS: BED, CHAIR, WHEELCHAIR - STEP 1: Does the patient require assistance with bed, chair, or wheelchair transfers? Yes. TRANSFERS: BED, CHAIR, WHEELCHAIR - STEP 2: Does the patient require the assistance of a helper? Yes. TRANSFERS: BED, CHAIR, WHEELCHAIR - STEP 3: How much assistance does the patient require from the helper? Only supervision TRANSFERS: BED, CHAIR, WHEELCHAIR - SCORE: 5-SUP TRANSFERS: TOILET: Activity did not occur on this shift TRANSFERS: TOILET - SCORE: 0-UNK TRANSFERS: SHOWER: Activity did not occur on this shift TRANSFERS: SHOWER - SCORE: 0-UNK TRANSFERS: TUB: Activity did not occur on this shift TRANSFERS: TUB - SCORE: 0-UNK LOCOMOTION: WALK: LOCOMOTION: WALK - STEP 1: Does the patient need help to walk 150 feet? Yes. LOCOMOTION: WALK - STEP 2: How much assistance does the patient require to walk a minimum of 150 feet? Only supervision, cuing, or coaxing LOCOMOTION: WALK - SCORE: 5-SUP LOCOMOTION: WHEELCHAIR: Activity did not occur on this shift LOCOMOTION: WHEELCHAIR - SCORE: 0-UNK LOCOMOTION: STAIRS: LOCOMOTION: STAIRS - STEP 1: Does the patient need help to go up and down 12 to 14 stairs? Yes. LOCOMOTION: STAIRS - STEP 2: How much assistance does the patient need from the helper to go a minimum of 12 to 14 stairs? The pat ient goes less than 12 to 14 stairs - but more than 4 to 6 stairs LOCOMOTION: STAIRS - SCORE: 2-MAX COMPREHENSION: COMPREHENSION - SCORE: 0-UNK EXPRESSION EXPRESSION - SCORE: 0-UNK SOCIAL INTERACTION: SOCIAL INTERACTION - SCORE: 0-UNK PROBLEM SOLVING: PROBLEM SOLVING - SCORE: 0-UNK MEMORY: MEMORY - SCORE: 0-UNK SIGNATURE PANEL: The following modified sections: Transfers: Bed, Chair, Wheelchair - Score, Transfers: Toilet - Score , Locomotion: Walk - Score, Locomotion: Wheelchair - Score, Locomotion: Stairs - Score were [electron aiden] signed by Remy George PT on SatJun 03 2018 13:55:18 T-0500 (Central Daylight Time)
--- NOTE | 2018-06-03 13:57 | FAST ---
ENCOUNTER DATE AND TIME: 06/03/2018 08:00 (CDT) NAME SIDDHARTHA WILDER DATE OF : 1950 DATE OF ADMISSION: 05/29/2018 11:23 (CDT) PHONE: AGE: 68 N# [id number] GENDER: Female ENCOUNTER PHYSICIAN: Dr. Luis Torres M.D. ADMISSION DIAGNOSIS: - Orthopaedic Disorders 08 - Unilateral Hip Fracture (08.11) Right Displaced femoral Neck Fracture. - Orthopaedic Disorders 08 - Other Orthopaedic (08.9) Right Nondisplaced Distal Radius Fracture. EATING: Activity did not occur on this shift EATING - SCORE: 0-UNK GROOMING: Activity did not occur on this shift GROOMING - SCORE: 0-UNK BATHING: Activity did not occur on this shift BATHING - SCORE: 0-UNK DRESSING - UPPER BODY: Activity did not occur on this shift Patient is not dressing in public clothing ARTICLES SCORE Total number of steps: 0 DRESSING - UPPER BODY - SCORE: 0-UNK DRESSING - LOWER BODY: Activity did not occur on this shift Patient is not dressing in public clothing ARTICLES SCORE Total number of steps: 0 DRESSING - LOWER BODY - SCORE: 0-UNK TOILETING: Activity did not occur on this shift TOILETING - SCORE: 0-UNK BLADDER MANAGEMENT: Activity did not occur on this shift BLADDER MANAGEMENT - SCORE: 7-IND BOWEL MANAGEMENT: Activity did not occur on this shift BOWEL MANAGEMENT - SCORE: 7-IND TRANSFERS: BED, CHAIR, WHEELCHAIR: TRANSFERS: BED, CHAIR, WHEELCHAIR - STEP 1: Does the patient require assistance with bed, chair, or wheelchair transfers? Yes. TRANSFERS: BED, CHAIR, WHEELCHAIR - STEP 2: Does the patient require the assistance of a helper? Yes. TRANSFERS: BED, CHAIR, WHEELCHAIR - STEP 3: How much assistance does the patient require from the helper? Only supervision TRANSFERS: BED, CHAIR, WHEELCHAIR - SCORE: 5-SUP TRANSFERS: TOILET: Activity did not occur on this shift TRANSFERS: TOILET - SCORE: 0-UNK TRANSFERS: SHOWER: Activity did not occur on this shift TRANSFERS: SHOWER - SCORE: 0-UNK TRANSFERS: TUB: Activity did not occur on this shift TRANSFERS: TUB - SCORE: 0-UNK LOCOMOTION: WALK: LOCOMOTION: WALK - STEP 1: Does the patient need help to walk 150 feet? Yes. LOCOMOTION: WALK - STEP 2: How much assistance does the patient require to walk a minimum of 150 feet? Only supervision, cuing, or coaxing LOCOMOTION: WALK - SCORE: 5-SUP LOCOMOTION: WHEELCHAIR: Activity did not occur on this shift LOCOMOTION: WHEELCHAIR - SCORE: 0-UNK LOCOMOTION: STAIRS: Activity did not occur on this shift LOCOMOTION: STAIRS - SCORE: 0-UNK COMPREHENSION: COMPREHENSION - SCORE: 0-UNK EXPRESSION EXPRESSION - SCORE: 0-UNK SOCIAL INTERACTION: SOCIAL INTERACTION - SCORE: 0-UNK PROBLEM SOLVING: PROBLEM SOLVING - SCORE: 0-UNK MEMORY: MEMORY - SCORE: 0-UNK SIGNATURE PANEL: The following modified sections: Transfers: Bed, Chair, Wheelchair - Score, Transfers: Toilet - Score , Locomotion: Walk - Score, Locomotion: Wheelchair - Score, Locomotion: Stairs - Score were [electron icalltre] signed by Remy George PT on SatJun 03 2018 13:56:51 [facility]-0500 (Central Daylight Time)
--- NOTE | 2018-06-03 14:38 | FAST ---
ENCOUNTER DATE AND TIME: 06/03/2018 08:00 (CDT) NAME SIDDHARTHA WILDER DATE OF : 1950 DATE OF ADMISSION: 05/29/2018 11:23 (CDT) PHONE: AGE: 68 N# [id number] GENDER: Female ENCOUNTER PHYSICIAN: Dr. Luis Torres M.D. ADMISSION DIAGNOSIS: - Orthopaedic Disorders 08 - Unilateral Hip Fracture (08.11) Right Displaced femoral Neck Fracture. - Orthopaedic Disorders 08 - Other Orthopaedic (08.9) Right Nondisplaced Distal Radius Fracture. EATING: Activity did not occur on this shift EATING - SCORE: 0-UNK GROOMING: Activity did not occur on this shift GROOMING - SCORE: 0-UNK BATHING: Activity did not occur on this shift BATHING - SCORE: 0-UNK DRESSING - UPPER BODY: Activity did not occur on this shift ARTICLES SCORE Total number of steps: 0 DRESSING - UPPER BODY - SCORE: 0-UNK DRESSING - LOWER BODY: Activity did not occur on this shift ARTICLES SCORE Total number of steps: 0 DRESSING - LOWER BODY - SCORE: 0-UNK TOILETING: TOILETING - STEP 1: Does the patient require assistance with toileting? Yes. TOILETING - STEP 2: Does the patient require the assistance of a helper? Yes. TOILETING - STEP 3: How much assistance does the patient require from the helper? Hands-on assistance from the helper TOILETING - STEP 4: Of the 3 tasks: 1) Adjusting clothing prior to use, 2) Cleansing of perineal area, 3) Adjusting clot chaim after use; How many tasks does the patient perform WITHOUT assistance of the helper? Three tasks with steadying assistance from the helper TOILETING - SCORE: 4-MIN BLADDER MANAGEMENT: Activity did not occur on this shift BLADDER MANAGEMENT - SCORE: 7-IND BOWEL MANAGEMENT: Activity did not occur on this shift BOWEL MANAGEMENT - SCORE: 7-IND TRANSFERS: BED, CHAIR, WHEELCHAIR: TRANSFERS: BED, CHAIR, WHEELCHAIR - STEP 1: Does the patient require assistance with bed, chair, or wheelchair transfers? Yes. TRANSFERS: BED, CHAIR, WHEELCHAIR - STEP 2: Does the patient require the assistance of a helper? Yes. TRANSFERS: BED, CHAIR, WHEELCHAIR - STEP 3: How much assistance does the patient require from the helper? Steadying/guiding assistance TRANSFERS: BED, CHAIR, WHEELCHAIR - SCORE: 4-MIN TRANSFERS: TOILET: TRANSFERS: TOILET - STEP 1: Does the patient require assistance with toilet transfers? Yes. TRANSFERS: TOILET - STEP 2: Does the patient require the assistance of a helper? Yes. TRANSFERS: TOILET - STEP 3: How much assistance does the patient require from the helper? Patient performs half or more of the tr ansferring tasks TRANSFERS: TOILET - STEP 4: Does the patient need only incidental help such as contact guard or steadying during toilet transfer? Yes. TRANSFERS: TOILET - SCORE: 4-MIN TRANSFERS: SHOWER: Activity did not occur on this shift TRANSFERS: SHOWER - SCORE: 0-UNK TRANSFERS: TUB: Activity did not occur on this shift TRANSFERS: TUB - SCORE: 0-UNK LOCOMOTION: WALK: Activity did not occur on this shift LOCOMOTION: WALK - SCORE: 0-UNK LOCOMOTION: WHEELCHAIR: Activity did not occur on this shift LOCOMOTION: WHEELCHAIR - SCORE: 0-UNK LOCOMOTION: STAIRS: Activity did not occur on this shift LOCOMOTION: STAIRS - SCORE: 0-UNK COMPREHENSION: COMPREHENSION - STEP 1: Does the patient require help to understand complex and abstract ideas (such as current events, finan neal, discharge planning, medical issues, relationships, etc)? No. COMPREHENSION - STEP 2: Does the patient need extra time, require an assistive device (such as glasses, hearing aids, or an a ugmentative communication system), OR does s/he have mild difficulty expressing complex and abstract ideas (including mild dysarthria or mild word-finding problems)? No. COMPREHENSION - SCORE: 7-IND EXPRESSION EXPRESSION: TYPE: Non-Vocal EXPRESSION - STEP 1: Does the patient require help expressing complex and abstract ideas (such as current events, finances , discharge planning, medical issues, relationships, etc)? No. EXPRESSION - STEP 2: Does the patient need extra time, require an assistive device (such as augmentive communication syste m or a communication board), OR does s/he have mild difficulty expressing complex and abstract ideas (including mild dysarthria or mild word-find problems)? No. EXPRESSION - SCORE: 7-IND SOCIAL INTERACTION: SOCIAL INTERACTION - STEP 1: Does the patient require a helper to interact with others in social and therapeutic situations? No. SOCIAL INTERACTION - STEP 2: Does the patient need extra time in social situations, OR does s/he interact with staff, other patien ts, and family members ONLY in structured environments, OR does s/he require medication for social in teraction? No. SOCIAL INTERACTION - SCORE: 7-IND PROBLEM SOLVING: PROBLEM SOLVING - STEP 1: Does the patient need help to solve complex problems such as managing a checking account or confronti ng interpersonal problems? No. PROBLEM SOLVING - STEP 2: Does the patient require extra time to make decisions or solve problems, OR does s/he have slight dif ficulty reading, initiating, or self-correcting in unfamiliar situations? No. PROBLEM SOLVING - SCORE: 7-IND MEMORY: MEMORY - STEP 1: Does the patient need help to remember frequently encountered people, daily routines, and executing r equests? No. MEMORY - STEP 2: Does the patient have slight difficulty recognizing frequently encountered people, daily routines, or executing requests without the need for repetition or using self-initiated or environmental cues to remember? No. MEMORY - SCORE: 7-IND SIGNATURE PANEL: The following modified sections: Eating - Score, Grooming - Score, Bathing - Score, Dressing - Upper Body - Score, Dressing - Lower Body - Score, Toileting - Score, Transfers: Bed, Chair, Wheelchair - S core, Transfers: Toilet - Score, Transfers: Shower - Score, Transfers: Tub - Score, Comprehension - S core, Expression - Score, Social Interaction - Score, Problem Solving - Score, Memory - Score were [e lectronically] signed by MARKY Munoz on SatJun 03 2018 14:37:01 [facility]-0500 ([facility])
--- NOTE | 2018-06-03 17:47 | P.PN ---
Subjective Date of Service: 06/03/18 Subjective: Tolerating diet, Ambulating, Improving, Working w/ PT Ms. Ochoa report bilateral lower quadrant pain. Her KUB shows large amount of stool without obstruction. She had a good bowel movement after fleet enema and her pain has improved. The study also identified chronic pelvic and L5 vertebral process calcifications. This will be further evaluated outpatient. With physical therapy she ambulated 250'x3, 150'x3, and 200' with SBA using right platform rolling walker. Physical Examination - Vital Signs Temperature: 96.5 F Blood Pressure: 111/58 Pulse: 75 Respirations: 16 Pulse Ox (%): 94
--- NOTE | 2018-06-03 18:57 | RAD REPORT ---
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 The right hip prosthesis is in good position. No fracture is visualized.
[2018-06-03] MEDS: ATORVASTATIN 10 MG TAB PO SCH (20:16)
[2018-06-03] MEDS: DOCUSATE NA/SENNA CONC 1 TAB PO SCH (20:16)
[2018-06-03] MEDS: MELATONIN 3 MG TABLET PO PRN (20:16)
[2018-06-03] MEDS: GLUCERNA SHAKE 237 ML CAN PO SCH (20:16)
--- NOTE | 2018-06-04 02:03 | FAST ---
SHIFT START DATE/TIME: 06/03/2018 19:00 (CDT) SHIFT END DATE/TIME: 06/04/2018 07:00 (CDT) NAME SIDDHARTHA WILDER DATE OF : 1950 DATE OF ADMISSION: 05/29/2018 11:23 (CDT) PHONE: AGE: 68 [facility]# [id number] GENDER: Female ENCOUNTER PHYSICIAN: Dr. Luis Torres M.D. ADMISSION DIAGNOSIS: - Orthopaedic Disorders 08 - Unilateral Hip Fracture (08.11) Right Displaced femoral Neck Fracture. - Orthopaedic Disorders 08 - Other Orthopaedic (08.9) Right Nondisplaced Distal Radius Fracture. EATING: Activity did not occur on this shift EATING - SCORE: 0-UNK GROOMING: Wash, rinse, and dry face Wash, rinse, and dry hands GROOMING - STEP 1: Does the patient require assistance when grooming? Yes. GROOMING - STEP 2: Does the patient require the assistance of a helper? No. The patient only requires an assistive devic e, OR takes more than reasonable time to groom, OR there is a concern for safety as the patient groom s GROOMING - SCORE: 6-SOFIA BATHING: Activity did not occur on this shift BATHING - SCORE: 0-UNK DRESSING - UPPER BODY: Patient is not dressing in public clothing ARTICLES SCORE Total number of steps: 0 DRESSING - UPPER BODY - SCORE: 0-UNK DRESSING - LOWER BODY: Patient is not dressing in public clothing ARTICLES SCORE Total number of steps: 0 DRESSING - LOWER BODY - SCORE: 0-UNK TOILETING: TOILETING - STEP 1: Does the patient require assistance with toileting? Yes. TOILETING - STEP 2: Does the patient require the assistance of a helper? Yes. TOILETING - STEP 3: How much assistance does the patient require from the helper? Only supervision TOILETING - SCORE: 5-SUP BLADDER MANAGEMENT: BLADDER MANAGEMENT - STEP 1: Does the patient control the bladder completely and intentionally without equipment or devices or med ications, and is always continent? Yes. BLADDER MANAGEMENT - SCORE: 7-IND BOWEL MANAGEMENT: BOWEL MANAGEMENT - STEP 1: Does the patient control bowels completely and intentionally without equipment devices or medications AND is always continent? No. BOWEL MANAGEMENT - STEP 2: Does the patient require the assistance of a helper? No, patient requires medication for control such as stool softeners, suppositories, laxatives, enemas, or OTC medications BOWEL MANAGEMENT - SCORE: 6-SOFIA TRANSFERS: BED, CHAIR, WHEELCHAIR: TRANSFERS: BED, CHAIR, WHEELCHAIR - STEP 1: Does the patient require assistance with bed, chair, or wheelchair transfers? Yes. TRANSFERS: BED, CHAIR, WHEELCHAIR - STEP 2: Does the patient require the assistance of a helper? Yes. TRANSFERS: BED, CHAIR, WHEELCHAIR - STEP 3: How much assistance does the patient require from the helper? Only supervision TRANSFERS: BED, CHAIR, WHEELCHAIR - SCORE: 5-SUP TRANSFERS: TOILET: TRANSFERS: TOILET - STEP 1: Does the patient require assistance with toilet transfers? Yes. TRANSFERS: TOILET - STEP 2: Does the patient require the assistance of a helper? Yes. TRANSFERS: TOILET - STEP 3: How much assistance does the patient require from the helper? Only supervision, cuing, coaxing, OR he lp to set out transfer equipment or to lock brakes and/or lift foot rests TRANSFERS: TOILET - SCORE: 5-SUP TRANSFERS: SHOWER: Activity did not occur on this shift TRANSFERS: SHOWER - SCORE: 0-UNK TRANSFERS: TUB: Activity did not occur on this shift TRANSFERS: TUB - SCORE: 0-UNK LOCOMOTION: WALK: Activity did not occur on this shift LOCOMOTION: WALK - SCORE: 0-UNK LOCOMOTION: WHEELCHAIR: Activity did not occur on this shift LOCOMOTION: WHEELCHAIR - SCORE: 0-UNK COMPREHENSION: COMPREHENSION - STEP 1: Does the patient require help to understand complex and abstract ideas (such as current events, finan neal, discharge planning, medical issues, relationships, etc)? No. COMPREHENSION - STEP 2: Does the patient need extra time, require an assistive device (such as glasses, hearing aids, or an a ugmentative communication system), OR does s/he have mild difficulty expressing complex and abstract ideas (including mild dysarthria or mild word-finding problems)? No. COMPREHENSION - SCORE: 7-IND EXPRESSION EXPRESSION - STEP 1: Does the patient require help expressing complex and abstract ideas (such as current events, finances , discharge planning, medical issues, relationships, etc)? No. EXPRESSION - STEP 2: Does the patient need extra time, require an assistive device (such as augmentive communication syste m or a communication board), OR does s/he have mild difficulty expressing complex and abstract ideas (including mild dysarthria or mild word-find problems)? No. EXPRESSION - SCORE: 7-IND SOCIAL INTERACTION: SOCIAL INTERACTION - STEP 1: Does the patient require a helper to interact with others in social and therapeutic situations? No. SOCIAL INTERACTION - STEP 2: Does the patient need extra time in social situations, OR does s/he interact with staff, other patien ts, and family members ONLY in structured environments, OR does s/he require medication for social in teraction? Yes, patient needs extra time SOCIAL INTERACTION - SCORE: 6-SOFIA PROBLEM SOLVING: PROBLEM SOLVING - STEP 1: Does the patient need help to solve complex problems such as managing a checking account or confronti ng interpersonal problems? No. PROBLEM SOLVING - STEP 2: Does the patient require extra time to make decisions or solve problems, OR does s/he have slight dif ficulty reading, initiating, or self-correcting in unfamiliar situations? Yes, patient needs extra ti me. PROBLEM SOLVING - SCORE: 6-SOFIA MEMORY: MEMORY - STEP 1: Does the patient need help to remember frequently encountered people, daily routines, and executing r equests? No. MEMORY - STEP 2: Does the patient have slight difficulty recognizing frequently encountered people, daily routines, or executing requests without the need for repetition or using self-initiated or environmental cues to remember? No. MEMORY - SCORE: 7-IND SIGNATURE PANEL: The following modified sections: Eating - Score, Grooming - Score, Dressing - Upper Body - Score, Parmjit ssing - Lower Body - Score, Toileting - Score, Bladder Management - Score, Bowel Management - Score, Transfers: Bed, Chair, Wheelchair - Score, Transfers: Toilet - Score, Transfers: Shower - Score, Sotomayor sfers: Tub - Score, Locomotion: Walk - Score, Locomotion: Wheelchair - Score, Comprehension - Score, Expression - Score, Social Interaction - Score, Problem Solving - Score, Memory - Score were [electro nically] signed by Alma Rosa Judd CNA on SatJun 04 2018 02:02:04 GMT-0500 (Central Daylight Time)
[2018-06-04] MEDS: PANTOPRAZOLE 40MG TABLET PO SCH (06:26)
[2018-06-04] MEDS: HYDROCODONE/APAP 5/325 MG TAB PO PRN ×2 (06:26→11:56)
[2018-06-04] MEDS: INSULIN -REGULAR HUMAN 50 UNIT/0.5 ML ML SQ SCH ×4 (07:30→21:00)
[2018-06-04] MEDS: GLUCERNA SHAKE 237 ML CAN PO SCH ×2 (08:00→20:00)
[2018-06-04] MEDS: PROMOD 30 ML DOSE PO SCH ×2 (08:00→22:09)
[2018-06-04] MEDS: FE SULF/FA/VIT B COMP & C TAB PO SCH (08:30)
[2018-06-04] MEDS: ENOXAPARIN 40 MG/0.4 ML SQ SCH (08:30)
[2018-06-04] MEDS: ASCORBIC ACID 500 MG TABLET PO SCH (08:30)
[2018-06-04] MEDS: CYANOCOBALAMIN 1,000 MCG TAB PO SCH (08:30)
[2018-06-04] MEDS: LIDOCAINE 5% PATCH TOP SCH (08:30)
[2018-06-04] MEDS: levoFLOXacin 500 MG TAB PO SCH (08:31)
[2018-06-04] MEDS: ASPIRIN EC 81 MG TAB PO SCH (08:31)
[2018-06-04] MEDS: GABAPENTIN 300 MG CAP PO SCH ×2 (08:31→20:04)
[2018-06-04] MEDS: VITAMIN D 1000 UNIT TAB PO SCH (08:31)
[2018-06-04] MEDS: METFORMIN HCL 500 MG TAB PO SCH (08:31)
[2018-06-04] MEDS: FERROUS SULFATE 325 MG TAB PO SCH (08:31)
[2018-06-04] MEDS: TRAMADOL HCL 50 MG TAB PO PRN ×2 (09:45→20:04)
--- NOTE | 2018-06-04 15:08 | FAST ---
ENCOUNTER DATE AND TIME: 06/04/2018 08:00 (CDT) NAME SIDDHARTHA WILDER DATE OF : 1950 DATE OF ADMISSION: 05/29/2018 11:23 (CDT) PHONE: AGE: 68 N# [id number] GENDER: Female ENCOUNTER PHYSICIAN: Dr. Luis Torres M.D. ADMISSION DIAGNOSIS: - Orthopaedic Disorders 08 - Unilateral Hip Fracture (08.11) Right Displaced femoral Neck Fracture. - Orthopaedic Disorders 08 - Other Orthopaedic (08.9) Right Nondisplaced Distal Radius Fracture. EATING: Activity did not occur on this shift EATING - SCORE: 0-UNK GROOMING: Activity did not occur on this shift GROOMING - SCORE: 0-UNK BATHING: Activity did not occur on this shift BATHING - SCORE: 0-UNK DRESSING - UPPER BODY: Activity did not occur on this shift Patient is not dressing in public clothing ARTICLES SCORE Total number of steps: 0 DRESSING - UPPER BODY - SCORE: 0-UNK DRESSING - LOWER BODY: Activity did not occur on this shift Patient is not dressing in public clothing ARTICLES SCORE Total number of steps: 0 DRESSING - LOWER BODY - SCORE: 0-UNK TOILETING: Activity did not occur on this shift TOILETING - SCORE: 0-UNK BLADDER MANAGEMENT: Activity did not occur on this shift BLADDER MANAGEMENT - SCORE: 7-IND BOWEL MANAGEMENT: Activity did not occur on this shift BOWEL MANAGEMENT - SCORE: 7-IND TRANSFERS: BED, CHAIR, WHEELCHAIR: TRANSFERS: BED, CHAIR, WHEELCHAIR - STEP 1: Does the patient require assistance with bed, chair, or wheelchair transfers? Yes. TRANSFERS: BED, CHAIR, WHEELCHAIR - STEP 2: Does the patient require the assistance of a helper? Yes. TRANSFERS: BED, CHAIR, WHEELCHAIR - STEP 3: How much assistance does the patient require from the helper? Only supervision TRANSFERS: BED, CHAIR, WHEELCHAIR - SCORE: 5-SUP TRANSFERS: TOILET: Activity did not occur on this shift TRANSFERS: TOILET - SCORE: 0-UNK TRANSFERS: SHOWER: Activity did not occur on this shift TRANSFERS: SHOWER - SCORE: 0-UNK TRANSFERS: TUB: Activity did not occur on this shift TRANSFERS: TUB - SCORE: 0-UNK LOCOMOTION: WALK: LOCOMOTION: WALK - STEP 1: Does the patient need help to walk 150 feet? Yes. LOCOMOTION: WALK - STEP 2: How much assistance does the patient require to walk a minimum of 150 feet? Only supervision, cuing, or coaxing LOCOMOTION: WALK - SCORE: 5-SUP LOCOMOTION: WHEELCHAIR: Activity did not occur on this shift LOCOMOTION: WHEELCHAIR - SCORE: 0-UNK LOCOMOTION: STAIRS: LOCOMOTION: STAIRS - STEP 1: Does the patient need help to go up and down 12 to 14 stairs? Yes. LOCOMOTION: STAIRS - STEP 2: How much assistance does the patient need from the helper to go a minimum of 12 to 14 stairs? The pat ient goes less than 12 to 14 stairs - but more than 4 to 6 stairs LOCOMOTION: STAIRS - SCORE: 2-MAX COMPREHENSION: COMPREHENSION: TYPE: Both COMPREHENSION - STEP 1: Does the patient require help to understand complex and abstract ideas (such as current events, finan neal, discharge planning, medical issues, relationships, etc)? No. COMPREHENSION - STEP 2: Does the patient need extra time, require an assistive device (such as glasses, hearing aids, or an a ugmentative communication system), OR does s/he have mild difficulty expressing complex and abstract ideas (including mild dysarthria or mild word-finding problems)? No. COMPREHENSION - SCORE: 7-IND EXPRESSION EXPRESSION: TYPE: Both EXPRESSION - STEP 1: Does the patient require help expressing complex and abstract ideas (such as current events, finances , discharge planning, medical issues, relationships, etc)? No. EXPRESSION - STEP 2: Does the patient need extra time, require an assistive device (such as augmentive communication syste m or a communication board), OR does s/he have mild difficulty expressing complex and abstract ideas (including mild dysarthria or mild word-find problems)? No. EXPRESSION - SCORE: 7-IND SOCIAL INTERACTION: SOCIAL INTERACTION - SCORE: 0-UNK PROBLEM SOLVING: PROBLEM SOLVING - SCORE: 0-UNK MEMORY: MEMORY - SCORE: 0-UNK SIGNATURE PANEL: The following modified sections: Transfers: Bed, Chair, Wheelchair - Score, Transfers: Toilet - Score , Locomotion: Walk - Score, Locomotion: Wheelchair - Score, Locomotion: Stairs - Score, Comprehension - Score, Expression - Score were [electronically] signed by Remy George PT on SatJun 04 2018 15:07:47 GMT-0500 (Central Daylight Time)
--- NOTE | 2018-06-04 15:29 | FAST ---
ENCOUNTER DATE AND TIME: 06/04/2018 08:00 (CDT) NAME SIDDHARTHA WILDER DATE OF : 1950 DATE OF ADMISSION: 05/29/2018 11:23 (CDT) PHONE: AGE: 68 N# [id number] GENDER: Female ENCOUNTER PHYSICIAN: Dr. Luis Torres M.D. ADMISSION DIAGNOSIS: - Orthopaedic Disorders 08 - Unilateral Hip Fracture (08.11) Right Displaced femoral Neck Fracture. - Orthopaedic Disorders 08 - Other Orthopaedic (08.9) Right Nondisplaced Distal Radius Fracture. EATING: Activity did not occur on this shift EATING - SCORE: 0-UNK GROOMING: Comb/brush hair Oral care Wash, rinse, and dry face Wash, rinse, and dry hands GROOMING - STEP 1: Does the patient require assistance when grooming? No. GROOMING - SCORE: 7-IND BATHING: Abdomen Buttocks Chest Left arm Left lower leg and foot Left upper leg Perineal area Right lower leg and foot Right upper leg BATHING - STEP 1: Does the patient require assistance when bathing? Yes. BATHING - STEP 2: Does the patient require the assistance of a helper? Yes. BATHING - STEP 3: How much assistance does the patient require from the helper? Only supervision, cuing, coaxing, instr uctions, encouragement BATHING - SCORE: 5-SUP DRESSING - UPPER BODY: T-shirt/pullover shirt (four steps) ARTICLES SCORE Total number of steps: 4 DRESSING - UPPER BODY - STEP 1: Does the patient require help when dressing above the waist? No. DRESSING - UPPER BODY - SCORE: 7-IND DRESSING - LOWER BODY: Sock - Left foot (one step) Sock - Right foot (one step) Underwear (three steps) ARTICLES SCORE Total number of steps: 5 DRESSING - LOWER BODY - STEP 1: Does the patient require help when dressing below the waist? Yes. DRESSING - LOWER BODY - STEP 2: Does the patient require the assistance of a helper? Yes. DRESSING - LOWER BODY - STEP 3: Does the helper touch the patient while dressing? Yes. DRESSING - LOWER BODY - STEP 4: How many of the total steps does the patient complete on his/her own? 4 DRESSING - LOWER BODY - SCORE: 4-MIN TOILETING: Activity did not occur on this shift TOILETING - SCORE: 0-UNK BLADDER MANAGEMENT: Activity did not occur on this shift BLADDER MANAGEMENT - SCORE: 7-IND BOWEL MANAGEMENT: Activity did not occur on this shift BOWEL MANAGEMENT - SCORE: 7-IND TRANSFERS: BED, CHAIR, WHEELCHAIR: TRANSFERS: BED, CHAIR, WHEELCHAIR - STEP 1: Does the patient require assistance with bed, chair, or wheelchair transfers? Yes. TRANSFERS: BED, CHAIR, WHEELCHAIR - STEP 2: Does the patient require the assistance of a helper? No. Patient only requires an assistive device fo r bed, chair, wheelchair transfers such as a sliding board, grab bar, or brace, OR s/he takes more th an reasonable time, OR there is a safety concern when s/he performs the transfers TRANSFERS: BED, CHAIR, WHEELCHAIR - SCORE: 6-SOFIA TRANSFERS: TOILET: Activity did not occur on this shift TRANSFERS: TOILET - SCORE: 0-UNK TRANSFERS: SHOWER: TRANSFERS: SHOWER - STEP 1: Does the patient require assistance with shower transfers? Yes. TRANSFERS: SHOWER - STEP 2: Does the patient require the assistance of a helper? No. The patient only uses an assistive device, t akes more than reasonable time, OR there is a concern for safety when s/he performs transfers. TRANSFERS: SHOWER - SCORE: 6-SOFIA TRANSFERS: TUB: Activity did not occur on this shift TRANSFERS: TUB - SCORE: 0-UNK LOCOMOTION: WALK: Activity did not occur on this shift LOCOMOTION: WALK - SCORE: 0-UNK LOCOMOTION: WHEELCHAIR: Activity did not occur on this shift LOCOMOTION: WHEELCHAIR - SCORE: 0-UNK LOCOMOTION: STAIRS: Activity did not occur on this shift LOCOMOTION: STAIRS - SCORE: 0-UNK COMPREHENSION: COMPREHENSION: TYPE: Both COMPREHENSION - STEP 1: Does the patient require help to understand complex and abstract ideas (such as current events, finan neal, discharge planning, medical issues, relationships, etc)? No. COMPREHENSION - STEP 2: Does the patient need extra time, require an assistive device (such as glasses, hearing aids, or an a ugmentative communication system), OR does s/he have mild difficulty expressing complex and abstract ideas (including mild dysarthria or mild word-finding problems)? No. COMPREHENSION - SCORE: 7-IND EXPRESSION EXPRESSION: TYPE: Both EXPRESSION - STEP 1: Does the patient require help expressing complex and abstract ideas (such as current events, finances , discharge planning, medical issues, relationships, etc)? No. EXPRESSION - STEP 2: Does the patient need extra time, require an assistive device (such as augmentive communication syste m or a communication board), OR does s/he have mild difficulty expressing complex and abstract ideas (including mild dysarthria or mild word-find problems)? No. EXPRESSION - SCORE: 7-IND SOCIAL INTERACTION: SOCIAL INTERACTION - STEP 1: Does the patient require a helper to interact with others in social and therapeutic situations? No. SOCIAL INTERACTION - STEP 2: Does the patient need extra time in social situations, OR does s/he interact with staff, other patien ts, and family members ONLY in structured environments, OR does s/he require medication for social in teraction? No. SOCIAL INTERACTION - SCORE: 7-IND PROBLEM SOLVING: PROBLEM SOLVING - STEP 1: Does the patient need help to solve complex problems such as managing a checking account or confronti ng interpersonal problems? No. PROBLEM SOLVING - STEP 2: Does the patient require extra time to make decisions or solve problems, OR does s/he have slight dif ficulty reading, initiating, or self-correcting in unfamiliar situations? No. PROBLEM SOLVING - SCORE: 7-IND MEMORY: MEMORY - STEP 1: Does the patient need help to remember frequently encountered people, daily routines, and executing r equests? No. MEMORY - STEP 2: Does the patient have slight difficulty recognizing frequently encountered people, daily routines, or executing requests without the need for repetition or using self-initiated or environmental cues to remember? No. MEMORY - SCORE: 7-IND SIGNATURE PANEL: The following modified sections: Eating - Score, Grooming - Score, Bathing - Score, Dressing - Upper Body - Score, Dressing - Lower Body - Score, Toileting - Score, Transfers: Bed, Chair, Wheelchair - S core, Transfers: Toilet - Score, Transfers: Tub - Score, Transfers: Shower - Score, Comprehension - S core, Expression - Score, Social Interaction - Score, Problem Solving - Score, Memory - Score were [e lectronically] signed by Jayshree Rios OT on SatJun 04 2018 15:29:11 T-0500 (Central Daylight T arsh)
[2018-06-04] MEDS: MELATONIN 3 MG TABLET PO PRN (20:04)
[2018-06-04] MEDS: ATORVASTATIN 10 MG TAB PO SCH (20:05)
[2018-06-04] MEDS: DOCUSATE NA/SENNA CONC 1 TAB PO SCH (20:06)
[2018-06-05] MEDS: TRAMADOL HCL 50 MG TAB PO PRN ×3 (01:47→20:06)
[2018-06-05] MEDS: PANTOPRAZOLE 40MG TABLET PO SCH (06:19)
[2018-06-05] MEDS: HYDROCODONE/APAP 5/325 MG TAB PO PRN ×3 (06:19→22:42)
[2018-06-05] MEDS: LIDOCAINE 5% PATCH TOP SCH (07:00)
[2018-06-05] MEDS: ENOXAPARIN 40 MG/0.4 ML SQ SCH (07:00)
[2018-06-05] MEDS: INSULIN -REGULAR HUMAN 50 UNIT/0.5 ML ML SQ SCH ×4 (07:07→20:16)
[2018-06-05] MEDS: GLUCERNA SHAKE 237 ML CAN PO SCH ×2 (08:00→20:05)
[2018-06-05] MEDS: FE SULF/FA/VIT B COMP & C TAB PO SCH (08:01)
[2018-06-05] MEDS: PROMOD 30 ML DOSE PO SCH ×2 (08:01→20:04)
[2018-06-05] MEDS: GABAPENTIN 300 MG CAP PO SCH ×2 (08:02→20:03)
[2018-06-05] MEDS: METFORMIN HCL 500 MG TAB PO SCH (08:02)
[2018-06-05] MEDS: ASCORBIC ACID 500 MG TABLET PO SCH (08:02)
[2018-06-05] MEDS: ASPIRIN EC 81 MG TAB PO SCH (08:02)
[2018-06-05] MEDS: FERROUS SULFATE 325 MG TAB PO SCH (08:02)
[2018-06-05] MEDS: levoFLOXacin 500 MG TAB PO SCH (08:02)
[2018-06-05] MEDS: VITAMIN D 1000 UNIT TAB PO SCH (08:02)
[2018-06-05] MEDS: CYANOCOBALAMIN 1,000 MCG TAB PO SCH (08:02)
[2018-06-05] MEDS: ONDANSETRON 4 MG (ODT) TAB PO PRN (10:19)
[2018-06-05] MEDS: POLYETHYL GLY 3350 17 GM/DOSE PO PRN (10:19)
[2018-06-05 15:10] LABS: Absolute Lymphocytes (CBC) 1.1 K/uL (0.7-4.9); Absolute Monocytes 0.5 K/uL (0.1-1.3); Absolute Neutrophil 4.5 K/uL (1.8-8.0); Basophils % 0.8 % (0-1.3); Hematocrit 30.1 % (36.0-45.0); MCH 33.7 pg (27.0-35.0); MCV 95.4 fL (80-100); MPV 6.7 fL (7.6-11.3); Monocytes % 8.7 % (3.3-12.3); RBC Red Blood Cell Count 3.15 M/uL (3.86-4.86)
[2018-06-05 15:27] LABS: Albumin 3.3 g/dL (3.4-5.0); BUN Blood Urea Nitrogen 14 mg/dL (7-18); Bicarbonate 27 mmol/L (21-32); Glucose Level 123 mg/dL (74-106); Potassium 3.9 mmol/L (3.5-5.1); Prealbumin 18.2 mg/dL (20-40); Sodium Level 136 mmol/L (136-145)
--- NOTE | 2018-06-05 17:26 | R.PN ---
ENCOUNTER DATE AND TIME: 06/05/2018 17:21 (CDT) NAME SIDDHARTHA WILDER DATE OF : 1950 DATE OF ADMISSION: 05/29/2018 11:23 (CDT) Right Displaced femoral Neck FractureRight Nondisplaced Distal Radius FractureCHIEF COMPLAINT: Right hip fracture SUBJECTIVE: Pt denied any Shortness of Breath. Pt denied any depression. Performed bed mobility and transfers with modified independence. Ambulated 750' with modified indepen dence using a right platform rolling walker. Up and down 15 steps with standby assistance using left hand rail. VITAL SIGNS Temperature: 97.9 F SBP/DBP: 106/61 Pulse: 74 Resp: 16 MEDICATION ALLERGIES: Morphine ENVIRONMENTAL ALLERGIES: None Known - Substance Allergies None Known - Other Allergies None Known NURSING: - Shower allowing shower - Lab Results blood Sugar Check ACHS - Skin care per protocol PRECAUTIONS: - Anterior Hip Precaution No abduction No active extension No adduction across midline No external rotation No hip flexion >90 degrees No internal rotation - Posterior Hip Precaution No adduction across midline No external rotation No hip flexion >90 degrees No internal rotation No wheel chair propulsion - Weight Bearing Precaution WBAT right LE NWB right wrist ACTIVITIES OOB only with supervision THERAPIES: - Occupational Therapy Evaluate and Treat. - Physical Therapy Evaluate and Treat. PHYSICAL EXAM - Gen Alert and awake Lying in bed No apparent distress Oriented to: person, time, and place - Skin No skin breakdown. Normacephalic - Eyes No abnormalities - ENMT No abnormalities - Neck No abnormalities - CVS RRR - Chest Clear - Abd Soft - GI Non distended Deferred - No abnormalities - Ext No significant edema - MSK 4+/5 weakness in right upper and lower extremity. - Neuro 4/5 strength right upper and lower extremity. - Psych No abnormalities ASSESSMENT: Pt. is a 68 yo Right-handed female.On 05/25/2018 she was admitted to [facility] with diagnosis Right Displaced femoral Neck Fracture.Her impairment category is Orthopaedic Di sorders 08 - Unilateral Hip Fracture (05.31).Pre-morbidly, Pt. was independent/mod-I in Social Cogni tion, Self-Care, Locomotion, Sphincter Control, Transfers Control, and Communication; and she had goo d Sphincter Control.Currently, she has deficits of Balance, Self-Care, Locomotion, Endurance, Safety Awareness, and Transfers Control.Pt. is now referred to [facility] for acute i n-patient rehabilitation in order to maximize patient's functional independence in activities of lui y living, strength, ROM, and mobility.- Rehab Goal Patient has realistic goal of being discharged at assistance level 6-Tony to reside at Home with Fam avni/Relatives. MDM/PLAN: - Physical Therapy Decreased range of motion - to improve, our physical therapists will perform initial evaluation of p t's status upon admission and devise an individualized program for increasing patient's Range of Conrad on. Gait dysfunction - to improve, our physical therapists will perform initial evaluation of pt's statu s upon admission and devise an individualized program for Gait Training, and Wheel Chair mobility Inability to transfer - to improve, our physical therapists will perform initial evaluation of pt's status upon admission and devise an individualized program for Bed mobility Need for home safety evaluation - to improve, our physical therapists will perform initial evaluatio n of pt's status upon admission and devise an individualized program for Home Evaluation Need in caregiver upon discharge - to improve, our physical therapists will perform initial evaluati on of pt's status upon admission and devise an individualized program for Caregiver Training Edema - to improve, our physical therapists will perform initial evaluation of pt's status upon admis maury and devise an individualized program for Elevation Training, and Lymphedema Therapy New precaution - to improve, our physical therapists will perform initial evaluation of pt's status upon admission and devise an individualized program for Patient precaution education Poor balance - to improve, our physical therapists will perform initial evaluation of pt's status up on admission and devise an individualized program for Balance Training Poor endurance - to improve, our physical therapists will perform initial evaluation of pt's status upon admission and devise an individualized program for Endurance Training Weakness - to improve, our physical therapists will perform initial evaluation of pt's status upon a dmission and devise an individualized program for Aquatic Therapy, Neuromuscular Reeducation, and Str engthening Achieving independence - to improve, our physical therapists will perform initial evaluation of pt's status upon admission and devise an individualized program for Community Reintegration Activities - Occupational Therapy ADL deficits - to improve, our occupation therapists will perform initial evaluation of pt's status upon admission and devise an individualized program for Bathing, Bed mobility, Community Reintegratio n, Cooking, Dressing, Eating, Fine Motor Skills, Grooming, Homemaking, Kitchen Mobility, Laundry, Pat ient Education, Safety Awareness, Splinting - Positioning, Transfers(Toilet, Tub, Shower), and Wheel Chair Management Need for hiv/aids care nurse - to improve, our occupation therapists will perform initial evaluation of pt's status upon admission and devise an individualized program for Caregiver Training Weakness - to improve, our occupation therapists will perform initial evaluation of pt's status upon admission and devise an individualized program for Aquatic Therapy, Balance, Endurance, UE ROM, and UE strengthening - Anterior Hip Precaution No abduction No active extension No adduction across midline No external rotation No hip flexion >90 degrees No internal rotation - Diet - Liquid Texture Continue Regular - Tube Feed Continue N/A - Diet Type Continue Regular - Posterior Hip Precaution No adduction across midline No external rotation No hip flexion >90 degrees No internal rotation No wheel chair propulsion - Lab Results blood Sugar Check ACHS - Weight Bearing Precaution WBAT right LE NWB right wrist - Skin care per protocol - Diet - Solid Texture Continue Regular - Shower allowing shower FUNCTIONAL STATUS: UPDATED AT WEEKLY TEAM CONFERENCE - Bladder Same accident frequency: 7-Ind - No accidents in the past 7 days - Bowel Same accident frequency: 7-Ind - No accidents in the past 7 days - Walking Same score based on distance walked: 3(>=150ft) - Wheelchair Same score based on distance traveled: 0(N/A) FUNCTIONAL STATUS: - Self-Care A. Eating sup B. Grooming sup C. Bathing Key D. Dressing - Upper [place] E. Dressing - Lower modA F. Toileting modA - Sphincter Control G: Bladder control Ind H: Bowel control Ind - Transfers Control I. Bed/Chair/Wheelchair modA J. Toilet modA K. Tub/Shower ADNO - Locomotion L. Walk/Wheelchair (B) Key M. Stairs ADNO - Communication N. Comprehension (B) Ind O. Expression (B) Ind - Social Cognition P. Social Interaction Ind Q. Problem Solving Ind R. Memory Ind - Endurance Fair - Balance Fair - Safety Awareness Fair CURRENT FUNC. DEFICITS: Balance, Self-Care, Locomotion, Endurance, Safety Awareness, and Transfers Control SIGNATURE PANEL: (CDT)
[2018-06-05] MEDS: ATORVASTATIN 10 MG TAB PO SCH (20:04)
[2018-06-05] MEDS: DOCUSATE NA/SENNA CONC 1 TAB PO SCH (20:04)
[2018-06-05] MEDS: MELATONIN 3 MG TABLET PO PRN (20:05)
--- NOTE | 2018-06-06 03:55 | FAST ---
SHIFT START DATE/TIME: 06/05/2018 19:00 (CDT) SHIFT END DATE/TIME: 06/06/2018 07:00 (CDT) NAME SIDDHARTHA WILDER DATE OF : 1950 DATE OF ADMISSION: 05/29/2018 11:23 (CDT) PHONE: AGE: 68 N# [id number] GENDER: Female ENCOUNTER PHYSICIAN: Dr. Luis Torres M.D. ADMISSION DIAGNOSIS: - Orthopaedic Disorders 08 - Unilateral Hip Fracture (08.11) Right Displaced femoral Neck Fracture. - Orthopaedic Disorders 08 - Other Orthopaedic (08.9) Right Nondisplaced Distal Radius Fracture. EATING: EATING - STEP 1: Does the patient require assistance when eating? Yes. EATING - STEP 2: Does the patient require the assistance of a helper? No, patient only requires an assistive device, O R s/he takes more than reasonable time to eat, OR there is a safety concern, OR s/he requires modifie d food consistency EATING - SCORE: 6-SOFIA GROOMING: Comb/brush hair Oral care Wash, rinse, and dry face Wash, rinse, and dry hands GROOMING - STEP 1: Does the patient require assistance when grooming? Yes. GROOMING - STEP 2: Does the patient require the assistance of a helper? No. The patient only requires an assistive devic e, OR takes more than reasonable time to groom, OR there is a concern for safety as the patient groom s GROOMING - SCORE: 6-SOFIA BATHING: Activity did not occur on this shift BATHING - SCORE: 0-UNK DRESSING - UPPER BODY: Patient is not dressing in public clothing ARTICLES SCORE Total number of steps: 0 DRESSING - UPPER BODY - SCORE: 0-UNK DRESSING - LOWER BODY: Patient is not dressing in public clothing ARTICLES SCORE Total number of steps: 0 DRESSING - LOWER BODY - SCORE: 0-UNK TOILETING: TOILETING - STEP 1: Does the patient require assistance with toileting? Yes. TOILETING - STEP 2: Does the patient require the assistance of a helper? No. TOILETING - SCORE: 6-SOFIA BLADDER MANAGEMENT: BLADDER MANAGEMENT - STEP 1: Does the patient control the bladder completely and intentionally without equipment or devices or med ications, and is always continent? No. BLADDER MANAGEMENT - STEP 2: Does the patient require the assistance of a helper? No, patient requires and independently uses an a ssistive device, such as a urinal, bedpan, bedside commode, catheter, absorbent pad, or collecting de vice BLADDER MANAGEMENT - SCORE: 6-SOFIA BLADDER MANAGEMENT - FREQUENCY OF ACCIDENTS: BLADDER MANAGEMENT(FA) - STEP 1: How many accidents has the patient had during the current shift? 0 BOWEL MANAGEMENT: Activity did not occur on this shift BOWEL MANAGEMENT - SCORE: 7-IND TRANSFERS: BED, CHAIR, WHEELCHAIR: TRANSFERS: BED, CHAIR, WHEELCHAIR - STEP 1: Does the patient require assistance with bed, chair, or wheelchair transfers? Yes. TRANSFERS: BED, CHAIR, WHEELCHAIR - STEP 2: Does the patient require the assistance of a helper? No. Patient only requires an assistive device fo r bed, chair, wheelchair transfers such as a sliding board, grab bar, or brace, OR s/he takes more th an reasonable time, OR there is a safety concern when s/he performs the transfers TRANSFERS: BED, CHAIR, WHEELCHAIR - SCORE: 6-SOFIA TRANSFERS: TOILET: TRANSFERS: TOILET - STEP 1: Does the patient require assistance with toilet transfers? Yes. TRANSFERS: TOILET - STEP 2: Does the patient require the assistance of a helper? No. Patient only requires an assistive device norris ch as a grab bar or special seat, OR s/he takes more than reasonable time to perform toilet transfers , OR there is a safety concern when s/he performs toilet transfers. TRANSFERS: TOILET - SCORE: 6-SOFIA TRANSFERS: SHOWER: Activity did not occur on this shift TRANSFERS: SHOWER - SCORE: 0-UNK TRANSFERS: TUB: Activity did not occur on this shift TRANSFERS: TUB - SCORE: 0-UNK LOCOMOTION: WALK: Activity did not occur on this shift LOCOMOTION: WALK - SCORE: 0-UNK LOCOMOTION: WHEELCHAIR: Activity did not occur on this shift LOCOMOTION: WHEELCHAIR - SCORE: 0-UNK COMPREHENSION: COMPREHENSION: TYPE: Both COMPREHENSION - STEP 1: Does the patient require help to understand complex and abstract ideas (such as current events, finan neal, discharge planning, medical issues, relationships, etc)? No. COMPREHENSION - STEP 2: Does the patient need extra time, require an assistive device (such as glasses, hearing aids, or an a ugmentative communication system), OR does s/he have mild difficulty expressing complex and abstract ideas (including mild dysarthria or mild word-finding problems)? Yes. COMPREHENSION - SCORE: 6-SOFIA EXPRESSION EXPRESSION: TYPE: Both EXPRESSION - STEP 1: Does the patient require help expressing complex and abstract ideas (such as current events, finances , discharge planning, medical issues, relationships, etc)? No. EXPRESSION - STEP 2: Does the patient need extra time, require an assistive device (such as augmentive communication syste m or a communication board), OR does s/he have mild difficulty expressing complex and abstract ideas (including mild dysarthria or mild word-find problems)? Yes. EXPRESSION - SCORE: 6-SOFIA SOCIAL INTERACTION: SOCIAL INTERACTION - STEP 1: Does the patient require a helper to interact with others in social and therapeutic situations? No. SOCIAL INTERACTION - STEP 2: Does the patient need extra time in social situations, OR does s/he interact with staff, other patien ts, and family members ONLY in structured environments, OR does s/he require medication for social in teraction? Yes, patient needs extra time SOCIAL INTERACTION - SCORE: 6-SOFIA PROBLEM SOLVING: PROBLEM SOLVING - STEP 1: Does the patient need help to solve complex problems such as managing a checking account or confronti ng interpersonal problems? No. PROBLEM SOLVING - STEP 2: Does the patient require extra time to make decisions or solve problems, OR does s/he have slight dif ficulty reading, initiating, or self-correcting in unfamiliar situations? Yes, patient needs extra ti me. PROBLEM SOLVING - SCORE: 6-SOFIA MEMORY: MEMORY - STEP 1: Does the patient need help to remember frequently encountered people, daily routines, and executing r equests? No. MEMORY - STEP 2: Does the patient have slight difficulty recognizing frequently encountered people, daily routines, or executing requests without the need for repetition or using self-initiated or environmental cues to remember? Yes. MEMORY - SCORE: 6-SOFIA SIGNATURE PANEL: The following modified sections: Eating - Score, Grooming - Score, Bathing - Score, Dressing - Upper Body - Score, Dressing - Lower Body - Score, Toileting - Score, Bladder Management - Score, Bowel Man agement - Score, Transfers: Bed, Chair, Wheelchair - Score, Transfers: Toilet - Score, Transfers: Mary wer - Score, Transfers: Tub - Score, Locomotion: Walk - Score, Locomotion: Wheelchair - Score, Compre hension - Score, Expression - Score, Social Interaction - Score, Problem Solving - Score, Memory - Sc ore were [electronically] signed by Gracie MunguiaNVilma on SatJun 06 2018 03:54:36 GMT-0500 ( Central Daylight Time)
[2018-06-06] MEDS: TRAMADOL HCL 50 MG TAB PO PRN ×2 (06:05→15:07)
[2018-06-06] MEDS: ENOXAPARIN 40 MG/0.4 ML SQ SCH (06:40)
[2018-06-06] MEDS: PANTOPRAZOLE 40MG TABLET PO SCH (06:40)
[2018-06-06] MEDS: INSULIN -REGULAR HUMAN 50 UNIT/0.5 ML ML SQ SCH ×4 (07:30→20:06)
[2018-06-06] MEDS: ASPIRIN EC 81 MG TAB PO SCH (08:22)
[2018-06-06] MEDS: CYANOCOBALAMIN 1,000 MCG TAB PO SCH (08:22)
[2018-06-06] MEDS: FERROUS SULFATE 325 MG TAB PO SCH (08:23)
[2018-06-06] MEDS: levoFLOXacin 500 MG TAB PO SCH (08:23)
[2018-06-06] MEDS: ASCORBIC ACID 500 MG TABLET PO SCH (08:23)
[2018-06-06] MEDS: GABAPENTIN 300 MG CAP PO SCH ×2 (08:23→20:15)
[2018-06-06] MEDS: METFORMIN HCL 500 MG TAB PO SCH (08:23)
[2018-06-06] MEDS: FE SULF/FA/VIT B COMP & C TAB PO SCH (08:24)
[2018-06-06] MEDS: VITAMIN D 1000 UNIT TAB PO SCH (08:24)
[2018-06-06] MEDS: HYDROCODONE/APAP 5/325 MG TAB PO PRN ×2 (08:24→20:15)
[2018-06-06] MEDS: GLUCERNA SHAKE 237 ML CAN PO SCH ×2 (08:25→20:13)
[2018-06-06] MEDS: LIDOCAINE 5% PATCH TOP SCH (08:25)
[2018-06-06] MEDS: PROMOD 30 ML DOSE PO SCH ×2 (08:25→20:13)
[2018-06-06] MEDS: FLEET ENEMA ADULT PR PRN (08:27)
--- NOTE | 2018-06-06 09:55 | P.RH.PN ---
Estimated Length of Stay: 14 Expected Discharge Date: 06/11/18 Discharge Disposition Plan: Home Family Support: Yes Correction Goal: Mobility, Transfers, Self Care Vital Signs: Last Vital Signs Temp 96.8 F 06/06/18 06:24 Pulse 73 06/06/18 06:24 Resp 18 06/06/18 06:24 BP 110/59 L 06/06/18 06:24 Pulse Ox 97 06/06/18 06:24 Laboratory: Laboratory Last Values WBC 6.3 K/uL (4.3-10.9) 06/05/18 14:50 RBC 3.15 M/uL (3.86-4.86) L 06/05/18 14:50 Hgb 10.6 g/dL (12.0-15.0) L 06/05/18 14:50 Hct 30.1 % (36.0-45.0) L 06/05/18 14:50 MCV 95.4 fL (80-100) 06/05/18 14:50 MCH 33.7 pg (27.0-35.0) 06/05/18 14:50 MCHC 35.3 g/dL (32.0-36.0) 06/05/18 14:50 RDW 12.8 % (12.1-15.2) 06/05/18 14:50 Plt Count 469 K/uL (152-406) H D 06/05/18 14:50 MPV 6.7 fL (7.6-11.3) L D 06/05/18 14:50 Neutrophils % 71.5 % (41.7-73.7) 06/05/18 14:50 Lymphocytes % 17.0 % (15.3-44.8) 06/05/18 14:50 Monocytes % 8.7 % (3.3-12.3) 06/05/18 14:50 Eosinophils % 2.0 % (0-4.4) 06/05/18 14:50 Basophils % 0.8 % (0-1.3) 06/05/18 14:50 Absolute Neutrophils 4.5 K/uL (1.8-8.0) 06/05/18 14:50 Absolute Lymphocytes 1.1 K/uL (0.7-4.9) 06/05/18 14:50 Absolute Monocytes 0.5 K/uL (0.1-1.3) 06/05/18 14:50 Absolute Eosinophils 0.1 K/uL (0-0.5) 06/05/18 14:50 Absolute Basophils 0.0 K/uL (0-0.5) 06/05/18 14:50 Sodium 136 mmol/L (136-145) 06/05/18 14:50 Potassium 3.9 mmol/L (3.5-5.1) 06/05/18 14:50 Chloride 101 mmol/L (98-107) 06/05/18 14:50 Carbon Dioxide 27 mmol/L (21-32) 06/05/18 14:50 BUN 14 mg/dL (7-18) 06/05/18 14:50 Creatinine 0.50 mg/dL (0.55-1.3) L 06/05/18 14:50 Estimated GFR > 90 mL/min (=/>90) 06/05/18 14:50 Glucose 123 mg/dL (74-106) H 06/05/18 14:50 POC Glucose 123 mg/dl (65-120) H 06/06/18 06:44 Calcium 9.0 mg/dL (8.5-10.1) 06/05/18 14:50 Magnesium 2.2 mg/dL (1.8-2.4) 05/30/18 05:48 Albumin 3.3 g/dL (3.4-5.0) L 06/05/18 14:50 Prealbumin 18.2 mg/dL (20-40) L 06/05/18 14:50 Urine Color Yellow 05/29/18 21:15 Urine Appearance Clear 05/29/18 21:15 Urine pH 7.5 (5.0-7.0) H 05/29/18 21:15 Ur Specific [place] <=1.005 (1.005-1.030) 05/29/18 21:15 Urine Ketones Negative (NEG) 05/29/18 21:15 Urine Blood Negative (NEG) 05/29/18 21:15 Urine Nitrite Negative (NEG) 05/29/18 21:15 Urine Bilirubin Negative (NEG) 05/29/18 21:15 Urine Urobilinogen 1.0 mg/dL (0.2-1.0) 05/29/18 21:15 Ur Leukocyte Esterase Negative (NEG) 05/29/18 21:15 Urine RBC <5 /HPF (NONE SEEN) 05/29/18 21:15 Urine WBC <5 /HPF (<5) 05/29/18 21:15 Ur Squamous Epith Cells <5 /HPF (NONE SEEN) 05/29/18 21:15 Urine Bacteria <20 /HPF (<20) 05/29/18 21:15 Urine Culture Reflexed Not needed 05/29/18 21:15 Urine Glucose Negative (NEG) 05/29/18 21:15 Urine Total Protein Negative (NEG) 05/29/18 21:15 Weight: 129 lb 14.4 oz Wound Present: No Closed Surgical Incision Present: Yes Negative Pressure Wound Therapy Present: No Physician Update: She is doing well with physical and occupational therapy. Her blood work is essentially normal. She is modified independent in her room and will be discharged home on next Saturday. Pain Issues: [place] 5/325mg Q6H PRN. Lidocaine 5% patch 2 patch Daily. Tramadol 50mg Q6H PRN Functional Improvement: Patient is progressing well w/ goals. Patient has met all goals at this time, w/ the exception of Mod I w/ stairs and car transfer. Patient made Mod I in room w/ R Platform RW. Functional Improvement Occupational Therapy: Pt can banifit with further therapy to educate pt's on safety awareness and energy conservation techniques, due to pt's hip precautions and being non weightbearing on the right UE. cont to increase pt's endurance and activity tolerance for all adl tasks. Cont with the POC and the goals by the supervising OTR. Summary: Patient's care plan and intermediate manager goals have been reviewed and revised as necessary. Please see the Rehabilitation Signature page for all necessary signatures.
[2018-06-06] MEDS: ONDANSETRON 4 MG (ODT) TAB PO PRN (10:45)
[2018-06-06] MEDS: POLYETHYL GLY 3350 17 GM/DOSE PO PRN (20:13)
[2018-06-06] MEDS: DOCUSATE NA/SENNA CONC 1 TAB PO SCH (20:14)
[2018-06-06] MEDS: ATORVASTATIN 10 MG TAB PO SCH (20:15)
[2018-06-06] MEDS: MELATONIN 3 MG TABLET PO PRN (20:15)
[2018-06-07] MEDS: TRAMADOL HCL 50 MG TAB PO PRN ×3 (02:15→20:07)
--- NOTE | 2018-06-07 02:25 | FAST ---
SHIFT START DATE/TIME: 06/06/2018 19:00 (CDT) SHIFT END DATE/TIME: 06/07/2018 07:00 (CDT) NAME SIDDHARTHA WILDER DATE OF : 1950 DATE OF ADMISSION: 05/29/2018 11:23 (CDT) PHONE: AGE: 68 N# [id number] GENDER: Female ENCOUNTER PHYSICIAN: Dr. Luis Torres M.D. ADMISSION DIAGNOSIS: - Orthopaedic Disorders 08 - Unilateral Hip Fracture (08.11) Right Displaced femoral Neck Fracture. - Orthopaedic Disorders 08 - Other Orthopaedic (08.9) Right Nondisplaced Distal Radius Fracture. EATING: Activity did not occur on this shift EATING - SCORE: 0-UNK GROOMING: Oral care Wash, rinse, and dry face Wash, rinse, and dry hands GROOMING - STEP 1: Does the patient require assistance when grooming? Yes. GROOMING - STEP 2: Does the patient require the assistance of a helper? No. The patient only requires an assistive devic e, OR takes more than reasonable time to groom, OR there is a concern for safety as the patient groom s GROOMING - SCORE: 6-SOFIA BATHING: Activity did not occur on this shift BATHING - SCORE: 0-UNK DRESSING - UPPER BODY: Patient is not dressing in public clothing ARTICLES SCORE Total number of steps: 0 DRESSING - UPPER BODY - SCORE: 0-UNK DRESSING - LOWER BODY: Patient is not dressing in public clothing ARTICLES SCORE Total number of steps: 0 DRESSING - LOWER BODY - SCORE: 0-UNK TOILETING: TOILETING - STEP 1: Does the patient require assistance with toileting? Yes. TOILETING - STEP 2: Does the patient require the assistance of a helper? No. TOILETING - SCORE: 6-SOFIA BLADDER MANAGEMENT: BLADDER MANAGEMENT - STEP 1: Does the patient control the bladder completely and intentionally without equipment or devices or med ications, and is always continent? No. BLADDER MANAGEMENT - STEP 2: Does the patient require the assistance of a helper? No, patient requires and independently uses an a ssistive device, such as a urinal, bedpan, bedside commode, catheter, absorbent pad, or collecting de vice BLADDER MANAGEMENT - SCORE: 6-SOFIA BOWEL MANAGEMENT: Activity did not occur on this shift BOWEL MANAGEMENT - SCORE: 7-IND TRANSFERS: BED, CHAIR, WHEELCHAIR: TRANSFERS: BED, CHAIR, WHEELCHAIR - STEP 1: Does the patient require assistance with bed, chair, or wheelchair transfers? Yes. TRANSFERS: BED, CHAIR, WHEELCHAIR - STEP 2: Does the patient require the assistance of a helper? No. Patient only requires an assistive device fo r bed, chair, wheelchair transfers such as a sliding board, grab bar, or brace, OR s/he takes more th an reasonable time, OR there is a safety concern when s/he performs the transfers TRANSFERS: BED, CHAIR, WHEELCHAIR - SCORE: 6-SOFIA TRANSFERS: TOILET: TRANSFERS: TOILET - STEP 1: Does the patient require assistance with toilet transfers? Yes. TRANSFERS: TOILET - STEP 2: Does the patient require the assistance of a helper? No. Patient only requires an assistive device norris ch as a grab bar or special seat, OR s/he takes more than reasonable time to perform toilet transfers , OR there is a safety concern when s/he performs toilet transfers. TRANSFERS: TOILET - SCORE: 6-SOFIA TRANSFERS: SHOWER: Activity did not occur on this shift TRANSFERS: SHOWER - SCORE: 0-UNK TRANSFERS: TUB: Activity did not occur on this shift TRANSFERS: TUB - SCORE: 0-UNK LOCOMOTION: WALK: Activity did not occur on this shift LOCOMOTION: WALK - SCORE: 0-UNK LOCOMOTION: WHEELCHAIR: Activity did not occur on this shift LOCOMOTION: WHEELCHAIR - SCORE: 0-UNK COMPREHENSION: COMPREHENSION: TYPE: Both COMPREHENSION - STEP 1: Does the patient require help to understand complex and abstract ideas (such as current events, finan neal, discharge planning, medical issues, relationships, etc)? No. COMPREHENSION - STEP 2: Does the patient need extra time, require an assistive device (such as glasses, hearing aids, or an a ugmentative communication system), OR does s/he have mild difficulty expressing complex and abstract ideas (including mild dysarthria or mild word-finding problems)? Yes. COMPREHENSION - SCORE: 6-SOFIA EXPRESSION EXPRESSION: TYPE: Both EXPRESSION - STEP 1: Does the patient require help expressing complex and abstract ideas (such as current events, finances , discharge planning, medical issues, relationships, etc)? No. EXPRESSION - STEP 2: Does the patient need extra time, require an assistive device (such as augmentive communication syste m or a communication board), OR does s/he have mild difficulty expressing complex and abstract ideas (including mild dysarthria or mild word-find problems)? Yes. EXPRESSION - SCORE: 6-SOFIA SOCIAL INTERACTION: SOCIAL INTERACTION - STEP 1: Does the patient require a helper to interact with others in social and therapeutic situations? No. SOCIAL INTERACTION - STEP 2: Does the patient need extra time in social situations, OR does s/he interact with staff, other patien ts, and family members ONLY in structured environments, OR does s/he require medication for social in teraction? Yes, patient needs extra time SOCIAL INTERACTION - SCORE: 6-SOFIA PROBLEM SOLVING: PROBLEM SOLVING - STEP 1: Does the patient need help to solve complex problems such as managing a checking account or confronti ng interpersonal problems? No. PROBLEM SOLVING - STEP 2: Does the patient require extra time to make decisions or solve problems, OR does s/he have slight dif ficulty reading, initiating, or self-correcting in unfamiliar situations? Yes, patient needs extra ti me. PROBLEM SOLVING - SCORE: 6-SOFIA MEMORY: MEMORY - STEP 1: Does the patient need help to remember frequently encountered people, daily routines, and executing r equests? No. MEMORY - STEP 2: Does the patient have slight difficulty recognizing frequently encountered people, daily routines, or executing requests without the need for repetition or using self-initiated or environmental cues to remember? Yes. MEMORY - SCORE: 6-SOFIA
[2018-06-07] MEDS: FLEET ENEMA ADULT PR PRN (05:26)
[2018-06-07] MEDS: ENOXAPARIN 40 MG/0.4 ML SQ SCH (06:52)
[2018-06-07] MEDS: LIDOCAINE 5% PATCH TOP SCH (06:52)
[2018-06-07] MEDS: PANTOPRAZOLE 40MG TABLET PO SCH (06:52)
[2018-06-07] MEDS: INSULIN -REGULAR HUMAN 50 UNIT/0.5 ML ML SQ SCH ×4 (07:30→20:11)
[2018-06-07] MEDS: ASPIRIN EC 81 MG TAB PO SCH (08:10)
[2018-06-07] MEDS: HYDROCODONE/APAP 5/325 MG TAB PO PRN ×2 (08:10→16:31)
[2018-06-07] MEDS: VITAMIN D 1000 UNIT TAB PO SCH (08:11)
[2018-06-07] MEDS: ASCORBIC ACID 500 MG TABLET PO SCH (08:11)
[2018-06-07] MEDS: GABAPENTIN 300 MG CAP PO SCH ×2 (08:11→20:06)
[2018-06-07] MEDS: CYANOCOBALAMIN 1,000 MCG TAB PO SCH (08:11)
[2018-06-07] MEDS: FE SULF/FA/VIT B COMP & C TAB PO SCH (08:11)
[2018-06-07] MEDS: FERROUS SULFATE 325 MG TAB PO SCH (08:11)
[2018-06-07] MEDS: METFORMIN HCL 500 MG TAB PO SCH (08:11)
[2018-06-07] MEDS: PROMOD 30 ML DOSE PO SCH ×2 (08:12→20:06)
[2018-06-07] MEDS: GLUCERNA SHAKE 237 ML CAN PO SCH ×2 (09:45→20:06)
--- NOTE | 2018-06-07 14:59 | FAST ---
SHIFT START DATE/TIME: 06/07/2018 07:00 (CDT) SHIFT END DATE/TIME: 06/07/2018 19:00 (CDT) NAME SIDHDARTHA WILDER DATE OF : 1950 DATE OF ADMISSION: 05/29/2018 11:23 (CDT) PHONE: AGE: 68 N# [id number] GENDER: Female ENCOUNTER PHYSICIAN: Dr. Luis Torres M.D. ADMISSION DIAGNOSIS: - Orthopaedic Disorders 08 - Unilateral Hip Fracture (08.11) Right Displaced femoral Neck Fracture. - Orthopaedic Disorders 08 - Other Orthopaedic (08.9) Right Nondisplaced Distal Radius Fracture. EATING: EATING - STEP 1: Does the patient require assistance when eating? Yes. EATING - STEP 2: Does the patient require the assistance of a helper? No, patient only requires an assistive device, O R s/he takes more than reasonable time to eat, OR there is a safety concern, OR s/he requires modifie d food consistency EATING - SCORE: 6-SOFIA GROOMING: GROOMING - STEP 1: Does the patient require assistance when grooming? Yes. GROOMING - STEP 2: Does the patient require the assistance of a helper? No. The patient only requires an assistive devic e, OR takes more than reasonable time to groom, OR there is a concern for safety as the patient groom s GROOMING - SCORE: 6-SOFIA BATHING: Activity did not occur on this shift BATHING - SCORE: 0-UNK DRESSING - UPPER BODY: Button down shirt or blouse - NOT tucked in (four steps) ARTICLES SCORE Total number of steps: 4 DRESSING - UPPER BODY - STEP 1: Does the patient require help when dressing above the waist? Yes. DRESSING - UPPER BODY - STEP 2: Does the patient require the assistance of a helper? No. Patient only requires an assistive device, s uch as a button hook, velcro, or paving rammer. OR s/he takes more than reasonable time as s/he dresses the upper body. OR there is a concern for safety when s/he dresses the upper body DRESSING - UPPER BODY - SCORE: 6-SOFIA DRESSING - LOWER BODY: Elastic waist pants (three steps) Slip-on shoe - Left foot (one step) Slip-on shoe - Right foot (one step) ARTICLES SCORE Total number of steps: 5 DRESSING - LOWER BODY - STEP 1: Does the patient require help when dressing below the waist? Yes. DRESSING - LOWER BODY - STEP 2: Does the patient require the assistance of a helper? No. Patient requires an assistive device such as a paving rammer. OR s/he takes more than reasonable time as s/he dresses the lower body, OR there is a con cern for safety when s/he dresses the lower body DRESSING - LOWER BODY - SCORE: 6-SOFIA TOILETING: TOILETING - STEP 1: Does the patient require assistance with toileting? Yes. TOILETING - STEP 2: Does the patient require the assistance of a helper? No. TOILETING - SCORE: 6-SOFIA BLADDER MANAGEMENT: BLADDER MANAGEMENT - STEP 1: Does the patient control the bladder completely and intentionally without equipment or devices or med ications, and is always continent? Yes. BLADDER MANAGEMENT - SCORE: 7-IND BLADDER MANAGEMENT - FREQUENCY OF ACCIDENTS: BLADDER MANAGEMENT(FA) - STEP 1: How many accidents has the patient had during the current shift? 0 BOWEL MANAGEMENT: Activity did not occur on this shift BOWEL MANAGEMENT - SCORE: 7-IND BOWEL MANAGEMENT - FREQUENCY OF ACCIDENTS: BOWEL MANAGEMENT(FA) - STEP 1: How many accidents has the patient had during the current shift? 0 TRANSFERS: BED, CHAIR, WHEELCHAIR: TRANSFERS: BED, CHAIR, WHEELCHAIR - STEP 1: Does the patient require assistance with bed, chair, or wheelchair transfers? Yes. TRANSFERS: BED, CHAIR, WHEELCHAIR - STEP 2: Does the patient require the assistance of a helper? No. Patient only requires an assistive device fo r bed, chair, wheelchair transfers such as a sliding board, grab bar, or brace, OR s/he takes more th an reasonable time, OR there is a safety concern when s/he performs the transfers TRANSFERS: BED, CHAIR, WHEELCHAIR - SCORE: 6-SOFIA TRANSFERS: TOILET: TRANSFERS: TOILET - STEP 1: Does the patient require assistance with toilet transfers? Yes. TRANSFERS: TOILET - STEP 2: Does the patient require the assistance of a helper? No. Patient only requires an assistive device norris ch as a grab bar or special seat, OR s/he takes more than reasonable time to perform toilet transfers , OR there is a safety concern when s/he performs toilet transfers. TRANSFERS: TOILET - SCORE: 6-SOFIA TRANSFERS: SHOWER: Activity did not occur on this shift TRANSFERS: SHOWER - SCORE: 0-UNK TRANSFERS: TUB: Activity did not occur on this shift TRANSFERS: TUB - SCORE: 0-UNK LOCOMOTION: WALK: LOCOMOTION: WALK - STEP 1: Does the patient need help to walk 150 feet? No. LOCOMOTION: WALK - STEP 2: Does the patient need an assistive device (such as an orthosis, prosthesis, crutches, or walker) to g o 150 feet, OR does s/he take more than reasonable time, OR is there a concern for safety? Yes, the p atient needs an assistive device LOCOMOTION: WALK - SCORE: 6-SOFIA LOCOMOTION: WALK - COMMENTS: Pt ambulates with rolling walker LOCOMOTION: WHEELCHAIR: Activity did not occur on this shift LOCOMOTION: WHEELCHAIR - SCORE: 0-UNK COMPREHENSION: COMPREHENSION: TYPE: Both COMPREHENSION - STEP 1: Does the patient require help to understand complex and abstract ideas (such as current events, finan neal, discharge planning, medical issues, relationships, etc)? No. COMPREHENSION - STEP 2: Does the patient need extra time, require an assistive device (such as glasses, hearing aids, or an a ugmentative communication system), OR does s/he have mild difficulty expressing complex and abstract ideas (including mild dysarthria or mild word-finding problems)? No. COMPREHENSION - SCORE: 7-IND EXPRESSION EXPRESSION: TYPE: Both EXPRESSION - STEP 1: Does the patient require help expressing complex and abstract ideas (such as current events, finances , discharge planning, medical issues, relationships, etc)? No. EXPRESSION - STEP 2: Does the patient need extra time, require an assistive device (such as augmentive communication syste m or a communication board), OR does s/he have mild difficulty expressing complex and abstract ideas (including mild dysarthria or mild word-find problems)? No. EXPRESSION - SCORE: 7-IND SOCIAL INTERACTION: SOCIAL INTERACTION - STEP 1: Does the patient require a helper to interact with others in social and therapeutic situations? No. SOCIAL INTERACTION - STEP 2: Does the patient need extra time in social situations, OR does s/he interact with staff, other patien ts, and family members ONLY in structured environments, OR does s/he require medication for social in teraction? No. SOCIAL INTERACTION - SCORE: 7-IND PROBLEM SOLVING: PROBLEM SOLVING - STEP 1: Does the patient need help to solve complex problems such as managing a checking account or confronti ng interpersonal problems? No. PROBLEM SOLVING - STEP 2: Does the patient require extra time to make decisions or solve problems, OR does s/he have slight dif ficulty reading, initiating, or self-correcting in unfamiliar situations? No. PROBLEM SOLVING - SCORE: 7-IND MEMORY: MEMORY - STEP 1: Does the patient need help to remember frequently encountered people, daily routines, and executing r equests? No. MEMORY - STEP 2: Does the patient have slight difficulty recognizing frequently encountered people, daily routines, or executing requests without the need for repetition or using self-initiated or environmental cues to remember? Yes. MEMORY - SCORE: 6-SOFIA SIGNATURE PANEL: The following modified sections: Eating - Score, Grooming - Score, Bathing - Score, Dressing - Upper Body - Score, Dressing - Lower Body - Score, Toileting - Score, Bladder Management - Score, Bowel Man agement - Score, Transfers: Bed, Chair, Wheelchair - Score, Transfers: Toilet - Score, Transfers: Mary wer - Score, Transfers: Tub - Score, Locomotion: Walk - Score, Locomotion: Walk - Comments:, Locomoti on: Wheelchair - Score, Comprehension - Score, Expression - Score, Social Interaction - Score, Proble m Solving - Score, Memory - Score were [electronically] signed by Karime Baires C.N.A. on Sat Jun 07 2018 14:58:25 T-0500 (Central Daylight Time)
[2018-06-07] MEDS: ATORVASTATIN 10 MG TAB PO SCH (20:06)
[2018-06-07] MEDS: MELATONIN 3 MG TABLET PO PRN (20:06)
[2018-06-07] MEDS: DOCUSATE NA/SENNA CONC 1 TAB PO SCH (20:07)
[2018-06-08] MEDS: HYDROCODONE/APAP 5/325 MG TAB PO PRN ×3 (00:01→20:00)
--- NOTE | 2018-06-08 01:52 | FAST ---
SHIFT START DATE/TIME: 06/07/2018 19:00 (CDT) SHIFT END DATE/TIME: 06/08/2018 07:00 (CDT) NAME SIDDHARTHA WILDER DATE OF : 1950 DATE OF ADMISSION: 05/29/2018 11:23 (CDT) PHONE: AGE: 68 N# [id number] GENDER: Female ENCOUNTER PHYSICIAN: Dr. Luis Torres M.D. ADMISSION DIAGNOSIS: - Orthopaedic Disorders 08 - Unilateral Hip Fracture (08.11) Right Displaced femoral Neck Fracture. - Orthopaedic Disorders 08 - Other Orthopaedic (08.9) Right Nondisplaced Distal Radius Fracture. EATING: Activity did not occur on this shift EATING - SCORE: 0-UNK GROOMING: Wash, rinse, and dry hands GROOMING - STEP 1: Does the patient require assistance when grooming? Yes. GROOMING - STEP 2: Does the patient require the assistance of a helper? No. The patient only requires an assistive devic e, OR takes more than reasonable time to groom, OR there is a concern for safety as the patient groom s GROOMING - SCORE: 6-SOFIA BATHING: Activity did not occur on this shift BATHING - SCORE: 0-UNK DRESSING - UPPER BODY: Patient is not dressing in public clothing ARTICLES SCORE Total number of steps: 0 DRESSING - UPPER BODY - SCORE: 0-UNK DRESSING - LOWER BODY: Patient is not dressing in public clothing ARTICLES SCORE Total number of steps: 0 DRESSING - LOWER BODY - SCORE: 0-UNK TOILETING: TOILETING - STEP 1: Does the patient require assistance with toileting? Yes. TOILETING - STEP 2: Does the patient require the assistance of a helper? Yes. TOILETING - STEP 3: How much assistance does the patient require from the helper? Only supervision TOILETING - SCORE: 5-SUP BLADDER MANAGEMENT: BLADDER MANAGEMENT - STEP 1: Does the patient control the bladder completely and intentionally without equipment or devices or med ications, and is always continent? Yes. BLADDER MANAGEMENT - SCORE: 7-IND BOWEL MANAGEMENT: Activity did not occur on this shift BOWEL MANAGEMENT - SCORE: 7-IND TRANSFERS: BED, CHAIR, WHEELCHAIR: TRANSFERS: BED, CHAIR, WHEELCHAIR - STEP 1: Does the patient require assistance with bed, chair, or wheelchair transfers? Yes. TRANSFERS: BED, CHAIR, WHEELCHAIR - STEP 2: Does the patient require the assistance of a helper? Yes. TRANSFERS: BED, CHAIR, WHEELCHAIR - STEP 3: How much assistance does the patient require from the helper? Only supervision TRANSFERS: BED, CHAIR, WHEELCHAIR - SCORE: 5-SUP TRANSFERS: TOILET: TRANSFERS: TOILET - STEP 1: Does the patient require assistance with toilet transfers? Yes. TRANSFERS: TOILET - STEP 2: Does the patient require the assistance of a helper? Yes. TRANSFERS: TOILET - STEP 3: How much assistance does the patient require from the helper? Only supervision, cuing, coaxing, OR he lp to set out transfer equipment or to lock brakes and/or lift foot rests TRANSFERS: TOILET - SCORE: 5-SUP TRANSFERS: SHOWER: Activity did not occur on this shift TRANSFERS: SHOWER - SCORE: 0-UNK TRANSFERS: TUB: Activity did not occur on this shift TRANSFERS: TUB - SCORE: 0-UNK LOCOMOTION: WALK: Activity did not occur on this shift LOCOMOTION: WALK - SCORE: 0-UNK LOCOMOTION: WHEELCHAIR: Activity did not occur on this shift LOCOMOTION: WHEELCHAIR - SCORE: 0-UNK COMPREHENSION: COMPREHENSION: TYPE: Both COMPREHENSION - STEP 1: Does the patient require help to understand complex and abstract ideas (such as current events, finan neal, discharge planning, medical issues, relationships, etc)? No. COMPREHENSION - STEP 2: Does the patient need extra time, require an assistive device (such as glasses, hearing aids, or an a ugmentative communication system), OR does s/he have mild difficulty expressing complex and abstract ideas (including mild dysarthria or mild word-finding problems)? Yes. COMPREHENSION - SCORE: 6-SOFIA EXPRESSION EXPRESSION: TYPE: Both EXPRESSION - STEP 1: Does the patient require help expressing complex and abstract ideas (such as current events, finances , discharge planning, medical issues, relationships, etc)? No. EXPRESSION - STEP 2: Does the patient need extra time, require an assistive device (such as augmentive communication syste m or a communication board), OR does s/he have mild difficulty expressing complex and abstract ideas (including mild dysarthria or mild word-find problems)? No. EXPRESSION - SCORE: 7-IND SOCIAL INTERACTION: SOCIAL INTERACTION - STEP 1: Does the patient require a helper to interact with others in social and therapeutic situations? No. SOCIAL INTERACTION - STEP 2: Does the patient need extra time in social situations, OR does s/he interact with staff, other patien ts, and family members ONLY in structured environments, OR does s/he require medication for social in teraction? Yes, patient needs extra time SOCIAL INTERACTION - SCORE: 6-SOFIA PROBLEM SOLVING: PROBLEM SOLVING - STEP 1: Does the patient need help to solve complex problems such as managing a checking account or confronti ng interpersonal problems? No. PROBLEM SOLVING - STEP 2: Does the patient require extra time to make decisions or solve problems, OR does s/he have slight dif ficulty reading, initiating, or self-correcting in unfamiliar situations? Yes, patient needs extra ti me. PROBLEM SOLVING - SCORE: 6-SOFIA MEMORY: MEMORY - STEP 1: Does the patient need help to remember frequently encountered people, daily routines, and executing r equests? No. MEMORY - STEP 2: Does the patient have slight difficulty recognizing frequently encountered people, daily routines, or executing requests without the need for repetition or using self-initiated or environmental cues to remember? No. MEMORY - SCORE: 7-IND SIGNATURE PANEL: The following modified sections: Eating - Score, Grooming - Score, Dressing - Upper Body - Score, Parmjit ssing - Lower Body - Score, Toileting - Score, Bladder Management - Score, Bowel Management - Score, Transfers: Bed, Chair, Wheelchair - Score, Transfers: Toilet - Score, Transfers: Shower - Score, Sotomayor sfers: Tub - Score, Locomotion: Walk - Score, Locomotion: Wheelchair - Score, Comprehension - Score, Expression - Score, Social Interaction - Score, Problem Solving - Score, Memory - Score were [electro nically] signed by Alma Rosa Judd CNA on SatJun 08 2018 01:50:58 GMT-0500 (Central Daylight Time)
[2018-06-08] MEDS: PANTOPRAZOLE 40MG TABLET PO SCH (06:42)
[2018-06-08] MEDS: INSULIN -REGULAR HUMAN 50 UNIT/0.5 ML ML SQ SCH ×4 (07:30→20:45)
[2018-06-08] MEDS: FERROUS SULFATE 325 MG TAB PO SCH (08:05)
[2018-06-08] MEDS: CYANOCOBALAMIN 1,000 MCG TAB PO SCH (08:05)
[2018-06-08] MEDS: GABAPENTIN 300 MG CAP PO SCH ×2 (08:05→20:00)
[2018-06-08] MEDS: METFORMIN HCL 500 MG TAB PO SCH (08:06)
[2018-06-08] MEDS: FE SULF/FA/VIT B COMP & C TAB PO SCH (08:06)
[2018-06-08] MEDS: ASCORBIC ACID 500 MG TABLET PO SCH (08:06)
[2018-06-08] MEDS: ASPIRIN EC 81 MG TAB PO SCH (08:06)
[2018-06-08] MEDS: PROMOD 30 ML DOSE PO SCH ×2 (08:07→20:00)
[2018-06-08] MEDS: VITAMIN D 1000 UNIT TAB PO SCH (08:07)
[2018-06-08] MEDS: ENOXAPARIN 40 MG/0.4 ML SQ SCH (08:07)
[2018-06-08] MEDS: TRAMADOL HCL 50 MG TAB PO PRN ×2 (08:07→16:46)
[2018-06-08] MEDS: LIDOCAINE 5% PATCH TOP SCH (08:07)
[2018-06-08] MEDS: GLUCERNA SHAKE 237 ML CAN PO SCH ×2 (08:08→20:01)
--- NOTE | 2018-06-08 13:40 | FAST ---
SHIFT START DATE/TIME: 06/08/2018 07:00 (CDT) SHIFT END DATE/TIME: 06/08/2018 19:00 (CDT) NAME SIDDHARTHA WILDER DATE OF : 1950 DATE OF ADMISSION: 05/29/2018 11:23 (CDT) PHONE: AGE: 68 [facility]# [id number] GENDER: Female ENCOUNTER PHYSICIAN: Dr. Luis Torres M.D. ADMISSION DIAGNOSIS: - Orthopaedic Disorders 08 - Unilateral Hip Fracture (08.11) Right Displaced femoral Neck Fracture. - Orthopaedic Disorders 08 - Other Orthopaedic (08.9) Right Nondisplaced Distal Radius Fracture. EATING: EATING - STEP 1: Does the patient require assistance when eating? Yes. EATING - STEP 2: Does the patient require the assistance of a helper? No, patient only requires an assistive device, O R s/he takes more than reasonable time to eat, OR there is a safety concern, OR s/he requires modifie d food consistency EATING - SCORE: 6-SOFIA GROOMING: Comb/brush hair Wash, rinse, and dry face Wash, rinse, and dry hands GROOMING - STEP 1: Does the patient require assistance when grooming? No. GROOMING - SCORE: 7-IND BATHING: Activity did not occur on this shift BATHING - SCORE: 0-UNK DRESSING - UPPER BODY: ARTICLES SCORE Total number of steps: 0 DRESSING - UPPER BODY - STEP 1: Does the patient require help when dressing above the waist? Yes. DRESSING - UPPER BODY - STEP 2: Does the patient require the assistance of a helper? No. Patient only requires an assistive device, s uch as a button hook, velcro, or church secretary. OR s/he takes more than reasonable time as s/he dresses the upper body. OR there is a concern for safety when s/he dresses the upper body DRESSING - UPPER BODY - SCORE: 6-SOFIA DRESSING - LOWER BODY: Elastic waist pants (three steps) Slip-on shoe - Left foot (one step) Slip-on shoe - Right foot (one step) Underwear (three steps) ARTICLES SCORE Total number of steps: 8 DRESSING - LOWER BODY - STEP 1: Does the patient require help when dressing below the waist? Yes. DRESSING - LOWER BODY - STEP 2: Does the patient require the assistance of a helper? No. Patient requires an assistive device such as a church secretary. OR s/he takes more than reasonable time as s/he dresses the lower body, OR there is a con cern for safety when s/he dresses the lower body DRESSING - LOWER BODY - SCORE: 6-SOFIA TOILETING: TOILETING - STEP 1: Does the patient require assistance with toileting? Yes. TOILETING - STEP 2: Does the patient require the assistance of a helper? No. TOILETING - SCORE: 6-SOFIA BLADDER MANAGEMENT: BLADDER MANAGEMENT - STEP 1: Does the patient control the bladder completely and intentionally without equipment or devices or med ications, and is always continent? Yes. BLADDER MANAGEMENT - SCORE: 7-IND BLADDER MANAGEMENT - FREQUENCY OF ACCIDENTS: BLADDER MANAGEMENT(FA) - STEP 1: How many accidents has the patient had during the current shift? 0 BOWEL MANAGEMENT: BOWEL MANAGEMENT - STEP 1: Does the patient control bowels completely and intentionally without equipment devices or medications AND is always continent? No. BOWEL MANAGEMENT - STEP 2: Does the patient require the assistance of a helper? No, patient requires medication for control such as stool softeners, suppositories, laxatives, enemas, or OTC medications BOWEL MANAGEMENT - SCORE: 6-SOFIA BOWEL MANAGEMENT - FREQUENCY OF ACCIDENTS: BOWEL MANAGEMENT(FA) - STEP 1: How many accidents has the patient had during the current shift? 0 TRANSFERS: BED, CHAIR, WHEELCHAIR: TRANSFERS: BED, CHAIR, WHEELCHAIR - STEP 1: Does the patient require assistance with bed, chair, or wheelchair transfers? Yes. TRANSFERS: BED, CHAIR, WHEELCHAIR - STEP 2: Does the patient require the assistance of a helper? No. Patient only requires an assistive device fo r bed, chair, wheelchair transfers such as a sliding board, grab bar, or brace, OR s/he takes more th an reasonable time, OR there is a safety concern when s/he performs the transfers TRANSFERS: BED, CHAIR, WHEELCHAIR - SCORE: 6-SOFIA TRANSFERS: TOILET: TRANSFERS: TOILET - STEP 1: Does the patient require assistance with toilet transfers? No. TRANSFERS: TOILET - SCORE: 7-IND TRANSFERS: SHOWER: Activity did not occur on this shift TRANSFERS: SHOWER - SCORE: 0-UNK TRANSFERS: TUB: Activity did not occur on this shift TRANSFERS: TUB - SCORE: 0-UNK LOCOMOTION: WALK: LOCOMOTION: WALK - STEP 1: Does the patient need help to walk 150 feet? Yes. LOCOMOTION: WALK - STEP 2: How much assistance does the patient require to walk a minimum of 150 feet? Only supervision, cuing, or coaxing LOCOMOTION: WALK - SCORE: 5-SUP LOCOMOTION: WHEELCHAIR: Activity did not occur on this shift LOCOMOTION: WHEELCHAIR - SCORE: 0-UNK COMPREHENSION: COMPREHENSION: TYPE: Both COMPREHENSION - STEP 1: Does the patient require help to understand complex and abstract ideas (such as current events, finan neal, discharge planning, medical issues, relationships, etc)? No. COMPREHENSION - STEP 2: Does the patient need extra time, require an assistive device (such as glasses, hearing aids, or an a ugmentative communication system), OR does s/he have mild difficulty expressing complex and abstract ideas (including mild dysarthria or mild word-finding problems)? No. COMPREHENSION - SCORE: 7-IND EXPRESSION EXPRESSION: TYPE: Both EXPRESSION - STEP 1: Does the patient require help expressing complex and abstract ideas (such as current events, finances , discharge planning, medical issues, relationships, etc)? No. EXPRESSION - STEP 2: Does the patient need extra time, require an assistive device (such as augmentive communication syste m or a communication board), OR does s/he have mild difficulty expressing complex and abstract ideas (including mild dysarthria or mild word-find problems)? No. EXPRESSION - SCORE: 7-IND SOCIAL INTERACTION: SOCIAL INTERACTION - STEP 1: Does the patient require a helper to interact with others in social and therapeutic situations? No. SOCIAL INTERACTION - STEP 2: Does the patient need extra time in social situations, OR does s/he interact with staff, other patien ts, and family members ONLY in structured environments, OR does s/he require medication for social in teraction? No. SOCIAL INTERACTION - SCORE: 7-IND PROBLEM SOLVING: PROBLEM SOLVING - STEP 1: Does the patient need help to solve complex problems such as managing a checking account or confronti ng interpersonal problems? No. PROBLEM SOLVING - STEP 2: Does the patient require extra time to make decisions or solve problems, OR does s/he have slight dif ficulty reading, initiating, or self-correcting in unfamiliar situations? No. PROBLEM SOLVING - SCORE: 7-IND MEMORY: MEMORY - STEP 1: Does the patient need help to remember frequently encountered people, daily routines, and executing r equests? No. MEMORY - STEP 2: Does the patient have slight difficulty recognizing frequently encountered people, daily routines, or executing requests without the need for repetition or using self-initiated or environmental cues to remember? Yes. MEMORY - SCORE: 6-SOFIA SIGNATURE PANEL: The following modified sections: Eating - Score, Grooming - Score, Bathing - Score, Dressing - Upper Body - Score, Dressing - Lower Body - Score, Toileting - Score, Bladder Management - Score, Bowel Man agement - Score, Transfers: Bed, Chair, Wheelchair - Score, Transfers: Toilet - Score, Transfers: Mary wer - Score, Transfers: Tub - Score, Locomotion: Wheelchair - Score, Locomotion: Walk - Score, Compre hension - Score, Expression - Score, Social Interaction - Score, Problem Solving - Score, Memory - Sc ore were [electronically] signed by Karime Baires C.N.A. on SatJun 08 2018 13:40:06 T-0500 (Centra l Daylight Time)
[2018-06-08] MEDS: MELATONIN 3 MG TABLET PO PRN (20:00)
[2018-06-08] MEDS: DOCUSATE NA/SENNA CONC 1 TAB PO SCH (20:00)
[2018-06-08] MEDS: ATORVASTATIN 10 MG TAB PO SCH (20:00)
--- NOTE | 2018-06-09 02:03 | FAST ---
SHIFT START DATE/TIME: 06/08/2018 19:00 (CDT) SHIFT END DATE/TIME: 06/09/2018 07:00 (CDT) NAME SIDDHARTHA WILDER DATE OF : 1950 DATE OF ADMISSION: 05/29/2018 11:23 (CDT) PHONE: AGE: 68 N# [id number] GENDER: Female ENCOUNTER PHYSICIAN: Dr. Luis Torres M.D. ADMISSION DIAGNOSIS: - Orthopaedic Disorders 08 - Unilateral Hip Fracture (08.11) Right Displaced femoral Neck Fracture. - Orthopaedic Disorders 08 - Other Orthopaedic (08.9) Right Nondisplaced Distal Radius Fracture. EATING: Activity did not occur on this shift EATING - SCORE: 0-UNK GROOMING: Wash, rinse, and dry hands GROOMING - STEP 1: Does the patient require assistance when grooming? Yes. GROOMING - STEP 2: Does the patient require the assistance of a helper? No. The patient only requires an assistive devic e, OR takes more than reasonable time to groom, OR there is a concern for safety as the patient groom s GROOMING - SCORE: 6-SOFIA BATHING: Activity did not occur on this shift BATHING - SCORE: 0-UNK DRESSING - UPPER BODY: Patient is not dressing in public clothing ARTICLES SCORE Total number of steps: 0 DRESSING - UPPER BODY - SCORE: 0-UNK DRESSING - LOWER BODY: Patient is not dressing in public clothing ARTICLES SCORE Total number of steps: 0 DRESSING - LOWER BODY - SCORE: 0-UNK TOILETING: TOILETING - STEP 1: Does the patient require assistance with toileting? Yes. TOILETING - STEP 2: Does the patient require the assistance of a helper? Yes. TOILETING - STEP 3: How much assistance does the patient require from the helper? Only supervision TOILETING - SCORE: 5-SUP BLADDER MANAGEMENT: BLADDER MANAGEMENT - STEP 1: Does the patient control the bladder completely and intentionally without equipment or devices or med ications, and is always continent? Yes. BLADDER MANAGEMENT - SCORE: 7-IND BOWEL MANAGEMENT: Activity did not occur on this shift BOWEL MANAGEMENT - SCORE: 7-IND TRANSFERS: BED, CHAIR, WHEELCHAIR: TRANSFERS: BED, CHAIR, WHEELCHAIR - STEP 1: Does the patient require assistance with bed, chair, or wheelchair transfers? Yes. TRANSFERS: BED, CHAIR, WHEELCHAIR - STEP 2: Does the patient require the assistance of a helper? Yes. TRANSFERS: BED, CHAIR, WHEELCHAIR - STEP 3: How much assistance does the patient require from the helper? Only supervision TRANSFERS: BED, CHAIR, WHEELCHAIR - SCORE: 5-SUP TRANSFERS: TOILET: TRANSFERS: TOILET - STEP 1: Does the patient require assistance with toilet transfers? Yes. TRANSFERS: TOILET - STEP 2: Does the patient require the assistance of a helper? Yes. TRANSFERS: TOILET - STEP 3: How much assistance does the patient require from the helper? Only supervision, cuing, coaxing, OR he lp to set out transfer equipment or to lock brakes and/or lift foot rests TRANSFERS: TOILET - SCORE: 5-SUP TRANSFERS: SHOWER: Activity did not occur on this shift TRANSFERS: SHOWER - SCORE: 0-UNK TRANSFERS: TUB: Activity did not occur on this shift TRANSFERS: TUB - SCORE: 0-UNK LOCOMOTION: WALK: Activity did not occur on this shift LOCOMOTION: WALK - SCORE: 0-UNK LOCOMOTION: WHEELCHAIR: Activity did not occur on this shift LOCOMOTION: WHEELCHAIR - SCORE: 0-UNK COMPREHENSION: COMPREHENSION: TYPE: Both COMPREHENSION - STEP 1: Does the patient require help to understand complex and abstract ideas (such as current events, finan neal, discharge planning, medical issues, relationships, etc)? No. COMPREHENSION - STEP 2: Does the patient need extra time, require an assistive device (such as glasses, hearing aids, or an a ugmentative communication system), OR does s/he have mild difficulty expressing complex and abstract ideas (including mild dysarthria or mild word-finding problems)? Yes. COMPREHENSION - SCORE: 6-SOFIA EXPRESSION EXPRESSION: TYPE: Both EXPRESSION - STEP 1: Does the patient require help expressing complex and abstract ideas (such as current events, finances , discharge planning, medical issues, relationships, etc)? No. EXPRESSION - STEP 2: Does the patient need extra time, require an assistive device (such as augmentive communication syste m or a communication board), OR does s/he have mild difficulty expressing complex and abstract ideas (including mild dysarthria or mild word-find problems)? No. EXPRESSION - SCORE: 7-IND SOCIAL INTERACTION: SOCIAL INTERACTION - STEP 1: Does the patient require a helper to interact with others in social and therapeutic situations? No. SOCIAL INTERACTION - STEP 2: Does the patient need extra time in social situations, OR does s/he interact with staff, other patien ts, and family members ONLY in structured environments, OR does s/he require medication for social in teraction? Yes, patient needs extra time SOCIAL INTERACTION - SCORE: 6-SOFIA PROBLEM SOLVING: PROBLEM SOLVING - STEP 1: Does the patient need help to solve complex problems such as managing a checking account or confronti ng interpersonal problems? No. PROBLEM SOLVING - STEP 2: Does the patient require extra time to make decisions or solve problems, OR does s/he have slight dif ficulty reading, initiating, or self-correcting in unfamiliar situations? Yes, patient needs extra ti me. PROBLEM SOLVING - SCORE: 6-SOFIA MEMORY: MEMORY - STEP 1: Does the patient need help to remember frequently encountered people, daily routines, and executing r equests? No. MEMORY - STEP 2: Does the patient have slight difficulty recognizing frequently encountered people, daily routines, or executing requests without the need for repetition or using self-initiated or environmental cues to remember? Yes. MEMORY - SCORE: 6-SOFIA SIGNATURE PANEL: The following modified sections: Eating - Score, Grooming - Score, Dressing - Upper Body - Score, Parmjit ssing - Lower Body - Score, Toileting - Score, Bladder Management - Score, Bowel Management - Score, Transfers: Bed, Chair, Wheelchair - Score, Transfers: Toilet - Score, Transfers: Shower - Score, Sotomayor sfers: Tub - Score, Locomotion: Walk - Score, Locomotion: Wheelchair - Score, Comprehension - Score, Expression - Score, Social Interaction - Score, Problem Solving - Score, Memory - Score were [electro nically] signed by Alma Rosa Judd CNA on SatJun 09 2018 02:02:45 GMT-0500 (Central Daylight Time)
[2018-06-09] MEDS: TRAMADOL HCL 50 MG TAB PO PRN ×2 (04:05→14:53)
[2018-06-09] MEDS: PANTOPRAZOLE 40MG TABLET PO SCH (07:27)
[2018-06-09] MEDS: HYDROCODONE/APAP 5/325 MG TAB PO PRN ×3 (07:27→20:10)
[2018-06-09] MEDS: INSULIN -REGULAR HUMAN 50 UNIT/0.5 ML ML SQ SCH ×4 (07:28→20:09)
[2018-06-09] MEDS: PROMOD 30 ML DOSE PO SCH ×2 (08:00→20:08)
[2018-06-09] MEDS: GLUCERNA SHAKE 237 ML CAN PO SCH ×2 (08:00→20:10)
[2018-06-09] MEDS: LIDOCAINE 5% PATCH TOP SCH (08:34)
[2018-06-09] MEDS: ENOXAPARIN 40 MG/0.4 ML SQ SCH (08:35)
[2018-06-09] MEDS: CYANOCOBALAMIN 1,000 MCG TAB PO SCH (08:35)
[2018-06-09] MEDS: GABAPENTIN 300 MG CAP PO SCH ×2 (08:36→20:08)
[2018-06-09] MEDS: FERROUS SULFATE 325 MG TAB PO SCH (08:36)
[2018-06-09] MEDS: FE SULF/FA/VIT B COMP & C TAB PO SCH (08:36)
[2018-06-09] MEDS: VITAMIN D 1000 UNIT TAB PO SCH (08:36)
[2018-06-09] MEDS: ASPIRIN EC 81 MG TAB PO SCH (08:36)
[2018-06-09] MEDS: METFORMIN HCL 500 MG TAB PO SCH (08:36)
[2018-06-09] MEDS: ASCORBIC ACID 500 MG TABLET PO SCH (08:36)
--- NOTE | 2018-06-09 14:01 | FAST ---
SHIFT START DATE/TIME: 06/09/2018 07:00 (CDT) SHIFT END DATE/TIME: 06/09/2018 19:00 (CDT) NAME SIDDHARTHA WILDER DATE OF : 1950 DATE OF ADMISSION: 05/29/2018 11:23 (CDT) PHONE: AGE: 68 N# [id number] GENDER: Female ENCOUNTER PHYSICIAN: Dr. Luis Torres M.D. ADMISSION DIAGNOSIS: - Orthopaedic Disorders 08 - Unilateral Hip Fracture (08.11) Right Displaced femoral Neck Fracture. - Orthopaedic Disorders 08 - Other Orthopaedic (08.9) Right Nondisplaced Distal Radius Fracture. EATING: EATING - STEP 1: Does the patient require assistance when eating? Yes. EATING - STEP 2: Does the patient require the assistance of a helper? No, patient only requires an assistive device, O R s/he takes more than reasonable time to eat, OR there is a safety concern, OR s/he requires modifie d food consistency EATING - SCORE: 6-SOFIA GROOMING: Comb/brush hair Oral care Wash, rinse, and dry face Wash, rinse, and dry hands GROOMING - STEP 1: Does the patient require assistance when grooming? Yes. GROOMING - STEP 2: Does the patient require the assistance of a helper? No. The patient only requires an assistive devic e, OR takes more than reasonable time to groom, OR there is a concern for safety as the patient groom s GROOMING - SCORE: 6-SOFIA BATHING: Activity did not occur on this shift BATHING - SCORE: 0-UNK DRESSING - UPPER BODY: Activity did not occur on this shift ARTICLES SCORE Total number of steps: 0 DRESSING - UPPER BODY - SCORE: 0-UNK DRESSING - LOWER BODY: Activity did not occur on this shift ARTICLES SCORE Total number of steps: 0 DRESSING - LOWER BODY - SCORE: 0-UNK TOILETING: TOILETING - STEP 1: Does the patient require assistance with toileting? Yes. TOILETING - STEP 2: Does the patient require the assistance of a helper? No. TOILETING - SCORE: 6-SOFIA BLADDER MANAGEMENT: BLADDER MANAGEMENT - STEP 1: Does the patient control the bladder completely and intentionally without equipment or devices or med ications, and is always continent? No. BLADDER MANAGEMENT - STEP 2: Does the patient require the assistance of a helper? No, patient requires and independently uses an a ssistive device, such as a urinal, bedpan, bedside commode, catheter, absorbent pad, or collecting de vice BLADDER MANAGEMENT - SCORE: 6-SOFIA BOWEL MANAGEMENT: BOWEL MANAGEMENT - STEP 1: Does the patient control bowels completely and intentionally without equipment devices or medications AND is always continent? No. BOWEL MANAGEMENT - STEP 2: Does the patient require the assistance of a helper? No, patient requires and manages independently a n assistive device such as a bedpan, bedside commode, absorbent pad, incontinent device, or collectin g device BOWEL MANAGEMENT - SCORE: 6-SOFIA TRANSFERS: BED, CHAIR, WHEELCHAIR: TRANSFERS: BED, CHAIR, WHEELCHAIR - STEP 1: Does the patient require assistance with bed, chair, or wheelchair transfers? Yes. TRANSFERS: BED, CHAIR, WHEELCHAIR - STEP 2: Does the patient require the assistance of a helper? No. Patient only requires an assistive device fo r bed, chair, wheelchair transfers such as a sliding board, grab bar, or brace, OR s/he takes more th an reasonable time, OR there is a safety concern when s/he performs the transfers TRANSFERS: BED, CHAIR, WHEELCHAIR - SCORE: 6-SOFIA TRANSFERS: TOILET: TRANSFERS: TOILET - STEP 1: Does the patient require assistance with toilet transfers? Yes. TRANSFERS: TOILET - STEP 2: Does the patient require the assistance of a helper? No. Patient only requires an assistive device norris ch as a grab bar or special seat, OR s/he takes more than reasonable time to perform toilet transfers , OR there is a safety concern when s/he performs toilet transfers. TRANSFERS: TOILET - SCORE: 6-SOFIA TRANSFERS: SHOWER: Activity did not occur on this shift TRANSFERS: SHOWER - SCORE: 0-UNK TRANSFERS: TUB: Activity did not occur on this shift TRANSFERS: TUB - SCORE: 0-UNK LOCOMOTION: WALK: Activity did not occur on this shift LOCOMOTION: WALK - SCORE: 0-UNK LOCOMOTION: WHEELCHAIR: Activity did not occur on this shift LOCOMOTION: WHEELCHAIR - SCORE: 0-UNK COMPREHENSION: COMPREHENSION: TYPE: Both COMPREHENSION - STEP 1: Does the patient require help to understand complex and abstract ideas (such as current events, finan neal, discharge planning, medical issues, relationships, etc)? No. COMPREHENSION - STEP 2: Does the patient need extra time, require an assistive device (such as glasses, hearing aids, or an a ugmentative communication system), OR does s/he have mild difficulty expressing complex and abstract ideas (including mild dysarthria or mild word-finding problems)? No. COMPREHENSION - SCORE: 7-IND EXPRESSION EXPRESSION: TYPE: Both EXPRESSION - STEP 1: Does the patient require help expressing complex and abstract ideas (such as current events, finances , discharge planning, medical issues, relationships, etc)? No. EXPRESSION - STEP 2: Does the patient need extra time, require an assistive device (such as augmentive communication syste m or a communication board), OR does s/he have mild difficulty expressing complex and abstract ideas (including mild dysarthria or mild word-find problems)? No. EXPRESSION - SCORE: 7-IND SOCIAL INTERACTION: SOCIAL INTERACTION - STEP 1: Does the patient require a helper to interact with others in social and therapeutic situations? No. SOCIAL INTERACTION - STEP 2: Does the patient need extra time in social situations, OR does s/he interact with staff, other patien ts, and family members ONLY in structured environments, OR does s/he require medication for social in teraction? No. SOCIAL INTERACTION - SCORE: 7-IND PROBLEM SOLVING: PROBLEM SOLVING - STEP 1: Does the patient need help to solve complex problems such as managing a checking account or confronti ng interpersonal problems? No. PROBLEM SOLVING - STEP 2: Does the patient require extra time to make decisions or solve problems, OR does s/he have slight dif ficulty reading, initiating, or self-correcting in unfamiliar situations? No. PROBLEM SOLVING - SCORE: 7-IND MEMORY: MEMORY - STEP 1: Does the patient need help to remember frequently encountered people, daily routines, and executing r equests? No. MEMORY - STEP 2: Does the patient have slight difficulty recognizing frequently encountered people, daily routines, or executing requests without the need for repetition or using self-initiated or environmental cues to remember? No. MEMORY - SCORE: 7-IND SIGNATURE PANEL: The following modified sections: Eating - Score, Grooming - Score, Bathing - Score, Dressing - Upper Body - Score, Dressing - Lower Body - Score, Toileting - Score, Bladder Management - Score, Bowel Man agement - Score, Transfers: Bed, Chair, Wheelchair - Score, Transfers: Toilet - Score, Transfers: Mary wer - Score, Transfers: Tub - Score, Locomotion: Walk - Score, Locomotion: Wheelchair - Score, Compre hension - Score, Expression - Score, Social Interaction - Score, Problem Solving - Score, Memory - Sc ore were [electronically] signed by Arjun Mckeon on SatJun 09 2018 14:00:40 GMT-0500 (Central Daylight Time)
--- NOTE | 2018-06-09 15:09 | FAST ---
ENCOUNTER DATE AND TIME: 06/09/2018 08:00 (CDT) NAME SIDDHARTHA WILDER DATE OF : 1950 DATE OF ADMISSION: 05/29/2018 11:23 (CDT) PHONE: AGE: 68 N# [id number] GENDER: Female ENCOUNTER PHYSICIAN: Dr. Luis Torres M.D. ADMISSION DIAGNOSIS: - Orthopaedic Disorders 08 - Unilateral Hip Fracture (08.11) Right Displaced femoral Neck Fracture. - Orthopaedic Disorders 08 - Other Orthopaedic (08.9) Right Nondisplaced Distal Radius Fracture. EATING: Activity did not occur on this shift EATING - SCORE: 0-UNK GROOMING: Activity did not occur on this shift GROOMING - SCORE: 0-UNK BATHING: Activity did not occur on this shift BATHING - SCORE: 0-UNK DRESSING - UPPER BODY: Activity did not occur on this shift Patient is not dressing in public clothing ARTICLES SCORE Total number of steps: 0 DRESSING - UPPER BODY - SCORE: 0-UNK DRESSING - LOWER BODY: Activity did not occur on this shift Patient is not dressing in public clothing ARTICLES SCORE Total number of steps: 0 DRESSING - LOWER BODY - SCORE: 0-UNK TOILETING: Activity did not occur on this shift TOILETING - SCORE: 0-UNK BLADDER MANAGEMENT: Activity did not occur on this shift BLADDER MANAGEMENT - SCORE: 7-IND BOWEL MANAGEMENT: Activity did not occur on this shift BOWEL MANAGEMENT - SCORE: 7-IND TRANSFERS: BED, CHAIR, WHEELCHAIR: TRANSFERS: BED, CHAIR, WHEELCHAIR - STEP 1: Does the patient require assistance with bed, chair, or wheelchair transfers? Yes. TRANSFERS: BED, CHAIR, WHEELCHAIR - STEP 2: Does the patient require the assistance of a helper? No. Patient only requires an assistive device fo r bed, chair, wheelchair transfers such as a sliding board, grab bar, or brace, OR s/he takes more th an reasonable time, OR there is a safety concern when s/he performs the transfers TRANSFERS: BED, CHAIR, WHEELCHAIR - SCORE: 6-SOFIA TRANSFERS: TOILET: TRANSFERS: TOILET - STEP 1: Does the patient require assistance with toilet transfers? Yes. TRANSFERS: TOILET - STEP 2: Does the patient require the assistance of a helper? No. Patient only requires an assistive device norris ch as a grab bar or special seat, OR s/he takes more than reasonable time to perform toilet transfers , OR there is a safety concern when s/he performs toilet transfers. TRANSFERS: TOILET - SCORE: 6-SOFIA TRANSFERS: SHOWER: Activity did not occur on this shift TRANSFERS: SHOWER - SCORE: 0-UNK TRANSFERS: TUB: Activity did not occur on this shift TRANSFERS: TUB - SCORE: 0-UNK LOCOMOTION: WALK: LOCOMOTION: WALK - STEP 1: Does the patient need help to walk 150 feet? No. LOCOMOTION: WALK - STEP 2: Does the patient need an assistive device (such as an orthosis, prosthesis, crutches, or walker) to g o 150 feet, OR does s/he take more than reasonable time, OR is there a concern for safety? Yes, the p atient needs an assistive device LOCOMOTION: WALK - SCORE: 6-SOFIA LOCOMOTION: WHEELCHAIR: Activity did not occur on this shift LOCOMOTION: WHEELCHAIR - SCORE: 0-UNK LOCOMOTION: STAIRS: Activity did not occur on this shift LOCOMOTION: STAIRS - SCORE: 0-UNK COMPREHENSION: COMPREHENSION: TYPE: Both COMPREHENSION - STEP 1: Does the patient require help to understand complex and abstract ideas (such as current events, finan neal, discharge planning, medical issues, relationships, etc)? No. COMPREHENSION - STEP 2: Does the patient need extra time, require an assistive device (such as glasses, hearing aids, or an a ugmentative communication system), OR does s/he have mild difficulty expressing complex and abstract ideas (including mild dysarthria or mild word-finding problems)? No. COMPREHENSION - SCORE: 7-IND EXPRESSION EXPRESSION: TYPE: Both EXPRESSION - STEP 1: Does the patient require help expressing complex and abstract ideas (such as current events, finances , discharge planning, medical issues, relationships, etc)? No. EXPRESSION - STEP 2: Does the patient need extra time, require an assistive device (such as augmentive communication syste m or a communication board), OR does s/he have mild difficulty expressing complex and abstract ideas (including mild dysarthria or mild word-find problems)? No. EXPRESSION - SCORE: 7-IND SOCIAL INTERACTION: SOCIAL INTERACTION - SCORE: 0-UNK PROBLEM SOLVING: PROBLEM SOLVING - SCORE: 0-UNK MEMORY: MEMORY - SCORE: 0-UNK SIGNATURE PANEL: The following modified sections: Transfers: Bed, Chair, Wheelchair - Score, Transfers: Toilet - Score , Locomotion: Walk - Score, Locomotion: Wheelchair - Score, Locomotion: Stairs - Score, Comprehension - Score, Expression - Score were [electronically] signed by Remy George PT on SatJun 09 2018 15:08:06 GMT-0500 (Central Daylight Time)
[2018-06-09] MEDS: ATORVASTATIN 10 MG TAB PO SCH (20:08)
[2018-06-09] MEDS: DOCUSATE NA/SENNA CONC 1 TAB PO SCH (20:09)
[2018-06-09] MEDS: MELATONIN 3 MG TABLET PO PRN (20:09)
[2018-06-10] MEDS: TRAMADOL HCL 50 MG TAB PO PRN ×3 (00:06→20:00)
--- NOTE | 2018-06-10 04:13 | FAST ---
SHIFT START DATE/TIME: 06/09/2018 19:00 (CDT) SHIFT END DATE/TIME: 06/10/2018 07:00 (CDT) NAME SIDDHARTHA WILDER DATE OF : 1950 DATE OF ADMISSION: 05/29/2018 11:23 (CDT) PHONE: AGE: 68 N# [id number] GENDER: Female ENCOUNTER PHYSICIAN: Dr. Luis Torres M.D. ADMISSION DIAGNOSIS: - Orthopaedic Disorders 08 - Unilateral Hip Fracture (08.11) Right Displaced femoral Neck Fracture. - Orthopaedic Disorders 08 - Other Orthopaedic (08.9) Right Nondisplaced Distal Radius Fracture. EATING: EATING - STEP 1: Does the patient require assistance when eating? Yes. EATING - STEP 2: Does the patient require the assistance of a helper? No, patient only requires an assistive device, O R s/he takes more than reasonable time to eat, OR there is a safety concern, OR s/he requires modifie d food consistency EATING - SCORE: 6-SOFIA GROOMING: Comb/brush hair Oral care Wash, rinse, and dry face Wash, rinse, and dry hands GROOMING - STEP 1: Does the patient require assistance when grooming? Yes. GROOMING - STEP 2: Does the patient require the assistance of a helper? No. The patient only requires an assistive devic e, OR takes more than reasonable time to groom, OR there is a concern for safety as the patient groom s GROOMING - SCORE: 6-SOFIA BATHING: Activity did not occur on this shift BATHING - SCORE: 0-UNK DRESSING - UPPER BODY: Patient is not dressing in public clothing ARTICLES SCORE Total number of steps: 0 DRESSING - UPPER BODY - SCORE: 0-UNK DRESSING - LOWER BODY: Patient is not dressing in public clothing ARTICLES SCORE Total number of steps: 0 DRESSING - LOWER BODY - SCORE: 0-UNK TOILETING: TOILETING - STEP 1: Does the patient require assistance with toileting? Yes. TOILETING - STEP 2: Does the patient require the assistance of a helper? No. TOILETING - SCORE: 6-SOFIA BLADDER MANAGEMENT: BLADDER MANAGEMENT - STEP 1: Does the patient control the bladder completely and intentionally without equipment or devices or med ications, and is always continent? No. BLADDER MANAGEMENT - STEP 2: Does the patient require the assistance of a helper? No, patient requires and independently uses an a ssistive device, such as a urinal, bedpan, bedside commode, catheter, absorbent pad, or collecting de vice BLADDER MANAGEMENT - SCORE: 6-SOFIA BLADDER MANAGEMENT - FREQUENCY OF ACCIDENTS: BLADDER MANAGEMENT(FA) - STEP 1: How many accidents has the patient had during the current shift? 0 BOWEL MANAGEMENT: Activity did not occur on this shift BOWEL MANAGEMENT - SCORE: 7-IND TRANSFERS: BED, CHAIR, WHEELCHAIR: TRANSFERS: BED, CHAIR, WHEELCHAIR - STEP 1: Does the patient require assistance with bed, chair, or wheelchair transfers? Yes. TRANSFERS: BED, CHAIR, WHEELCHAIR - STEP 2: Does the patient require the assistance of a helper? No. Patient only requires an assistive device fo r bed, chair, wheelchair transfers such as a sliding board, grab bar, or brace, OR s/he takes more th an reasonable time, OR there is a safety concern when s/he performs the transfers TRANSFERS: BED, CHAIR, WHEELCHAIR - SCORE: 6-SFOIA TRANSFERS: TOILET: TRANSFERS: TOILET - STEP 1: Does the patient require assistance with toilet transfers? Yes. TRANSFERS: TOILET - STEP 2: Does the patient require the assistance of a helper? No. Patient only requires an assistive device norris ch as a grab bar or special seat, OR s/he takes more than reasonable time to perform toilet transfers , OR there is a safety concern when s/he performs toilet transfers. TRANSFERS: TOILET - SCORE: 6-SOFIA TRANSFERS: SHOWER: Activity did not occur on this shift TRANSFERS: SHOWER - SCORE: 0-UNK TRANSFERS: TUB: Activity did not occur on this shift TRANSFERS: TUB - SCORE: 0-UNK LOCOMOTION: WALK: Activity did not occur on this shift LOCOMOTION: WALK - SCORE: 0-UNK LOCOMOTION: WHEELCHAIR: Activity did not occur on this shift LOCOMOTION: WHEELCHAIR - SCORE: 0-UNK COMPREHENSION: COMPREHENSION: TYPE: Both COMPREHENSION - STEP 1: Does the patient require help to understand complex and abstract ideas (such as current events, finan neal, discharge planning, medical issues, relationships, etc)? No. COMPREHENSION - STEP 2: Does the patient need extra time, require an assistive device (such as glasses, hearing aids, or an a ugmentative communication system), OR does s/he have mild difficulty expressing complex and abstract ideas (including mild dysarthria or mild word-finding problems)? Yes. COMPREHENSION - SCORE: 6-SOFIA EXPRESSION EXPRESSION: TYPE: Both EXPRESSION - STEP 1: Does the patient require help expressing complex and abstract ideas (such as current events, finances , discharge planning, medical issues, relationships, etc)? No. EXPRESSION - STEP 2: Does the patient need extra time, require an assistive device (such as augmentive communication syste m or a communication board), OR does s/he have mild difficulty expressing complex and abstract ideas (including mild dysarthria or mild word-find problems)? No. EXPRESSION - SCORE: 7-IND SOCIAL INTERACTION: SOCIAL INTERACTION - STEP 1: Does the patient require a helper to interact with others in social and therapeutic situations? No. SOCIAL INTERACTION - STEP 2: Does the patient need extra time in social situations, OR does s/he interact with staff, other patien ts, and family members ONLY in structured environments, OR does s/he require medication for social in teraction? No. SOCIAL INTERACTION - SCORE: 7-IND PROBLEM SOLVING: PROBLEM SOLVING - STEP 1: Does the patient need help to solve complex problems such as managing a checking account or confronti ng interpersonal problems? No. PROBLEM SOLVING - STEP 2: Does the patient require extra time to make decisions or solve problems, OR does s/he have slight dif ficulty reading, initiating, or self-correcting in unfamiliar situations? No. PROBLEM SOLVING - SCORE: 7-IND MEMORY: MEMORY - STEP 1: Does the patient need help to remember frequently encountered people, daily routines, and executing r equests? No. MEMORY - STEP 2: Does the patient have slight difficulty recognizing frequently encountered people, daily routines, or executing requests without the need for repetition or using self-initiated or environmental cues to remember? No. MEMORY - SCORE: 7-IND SIGNATURE PANEL: The following modified sections: Eating - Score, Grooming - Score, Bathing - Score, Dressing - Upper Body - Score, Dressing - Lower Body - Score, Toileting - Score, Bladder Management - Score, Bowel Man agement - Score, Transfers: Bed, Chair, Wheelchair - Score, Transfers: Toilet - Score, Transfers: Mary wer - Score, Transfers: Tub - Score, Locomotion: Walk - Score, Locomotion: Wheelchair - Score, Compre hension - Score, Expression - Score, Social Interaction - Score, Problem Solving - Score, Memory - Sc ore were [electronically] signed by Sho Abraham C.N.A. on SatJun 10 2018 04:12:25 T-0500 ( Central Daylight Time)
[2018-06-10] MEDS: HYDROCODONE/APAP 5/325 MG TAB PO PRN ×4 (05:19→23:28)
[2018-06-10] MEDS: PANTOPRAZOLE 40MG TABLET PO SCH (06:42)
[2018-06-10] MEDS: INSULIN -REGULAR HUMAN 50 UNIT/0.5 ML ML SQ SCH ×4 (07:30→20:01)
[2018-06-10] MEDS: ENOXAPARIN 40 MG/0.4 ML SQ SCH (07:57)
[2018-06-10] MEDS: LIDOCAINE 5% PATCH TOP SCH (07:57)
[2018-06-10] MEDS: GLUCERNA SHAKE 237 ML CAN PO SCH ×2 (08:00→20:00)
[2018-06-10] MEDS: FE SULF/FA/VIT B COMP & C TAB PO SCH (08:15)
[2018-06-10] MEDS: ASCORBIC ACID 500 MG TABLET PO SCH (08:15)
[2018-06-10] MEDS: CYANOCOBALAMIN 1,000 MCG TAB PO SCH (08:15)
[2018-06-10] MEDS: FERROUS SULFATE 325 MG TAB PO SCH (08:15)
[2018-06-10] MEDS: ASPIRIN EC 81 MG TAB PO SCH (08:15)
[2018-06-10] MEDS: VITAMIN D 1000 UNIT TAB PO SCH (08:15)
[2018-06-10] MEDS: METFORMIN HCL 500 MG TAB PO SCH (08:15)
[2018-06-10] MEDS: GABAPENTIN 300 MG CAP PO SCH ×2 (08:15→20:00)
[2018-06-10] MEDS: PROMOD 30 ML DOSE PO SCH ×2 (08:16→20:00)
--- NOTE | 2018-06-10 10:58 | FAST ---
ENCOUNTER DATE AND TIME: 06/09/2018 08:00 (CDT) NAME SIDDHARTHA WILDER DATE OF : 1950 DATE OF ADMISSION: 05/29/2018 11:23 (CDT) PHONE: AGE: 68 [facility]# [id number] GENDER: Female ENCOUNTER PHYSICIAN: Dr. Luis Torres M.D. ADMISSION DIAGNOSIS: - Orthopaedic Disorders 08 - Unilateral Hip Fracture (08.11) Right Displaced femoral Neck Fracture. - Orthopaedic Disorders 08 - Other Orthopaedic (08.9) Right Nondisplaced Distal Radius Fracture. EATING: EATING - STEP 1: Does the patient require assistance when eating? No. EATING - SCORE: 7-IND GROOMING: Comb/brush hair Oral care Wash, rinse, and dry face Wash, rinse, and dry hands GROOMING - STEP 1: Does the patient require assistance when grooming? No. GROOMING - SCORE: 7-IND BATHING: Abdomen Buttocks Chest Left arm Left lower leg and foot Left upper leg Perineal area Right lower leg and foot Right upper leg BATHING - STEP 1: Does the patient require assistance when bathing? Yes. BATHING - STEP 2: Does the patient require the assistance of a helper? Yes. BATHING - STEP 3: How much assistance does the patient require from the helper? Only prior preparation such as putting bathing equipment within reach, turning on water, checking water temperature BATHING - SCORE: 5-SUP DRESSING - UPPER BODY: Bra (three steps) T-shirt/pullover shirt (four steps) ARTICLES SCORE Total number of steps: 7 DRESSING - UPPER BODY - STEP 1: Does the patient require help when dressing above the waist? Yes. DRESSING - UPPER BODY - STEP 2: Does the patient require the assistance of a helper? Yes. DRESSING - UPPER BODY - STEP 3: Does the helper touch the patient while dressing? No. DRESSING - UPPER BODY - SCORE: 5-SUP DRESSING - LOWER BODY: Elastic waist pants (three steps) Slip-on shoe - Left foot (one step) Slip-on shoe - Right foot (one step) Sock - Left foot (one step) Sock - Right foot (one step) Underwear (three steps) ARTICLES SCORE Total number of steps: 10 DRESSING - LOWER BODY - STEP 1: Does the patient require help when dressing below the waist? Yes. DRESSING - LOWER BODY - STEP 2: Does the patient require the assistance of a helper? Yes. DRESSING - LOWER BODY - STEP 3: Does the helper touch the patient while dressing? No. DRESSING - LOWER BODY - SCORE: 5-SUP TOILETING: Activity did not occur on this shift TOILETING - SCORE: 0-UNK BLADDER MANAGEMENT: Activity did not occur on this shift BLADDER MANAGEMENT - SCORE: 7-IND BOWEL MANAGEMENT: Activity did not occur on this shift BOWEL MANAGEMENT - SCORE: 7-IND TRANSFERS: BED, CHAIR, WHEELCHAIR: Activity did not occur on this shift TRANSFERS: BED, CHAIR, WHEELCHAIR - SCORE: 0-UNK TRANSFERS: TOILET: Activity did not occur on this shift TRANSFERS: TOILET - SCORE: 0-UNK TRANSFERS: SHOWER: Activity did not occur on this shift TRANSFERS: SHOWER - SCORE: 0-UNK TRANSFERS: TUB: TRANSFERS: TUB - STEP 1: Does the patient require assistance with tub transfers? Yes. TRANSFERS: TUB - STEP 2: Does the patient require the assistance of a helper? Yes. TRANSFERS: TUB - STEP 3: How much assistance does the patient require from the helper? Only supervision, cuing, coaxing, or he lp to set out transfer equipment or to lock brakes and/or lift foot rests TRANSFERS: TUB - SCORE: 5-SUP LOCOMOTION: WALK: Activity did not occur on this shift LOCOMOTION: WALK - SCORE: 0-UNK LOCOMOTION: WHEELCHAIR: Activity did not occur on this shift LOCOMOTION: WHEELCHAIR - SCORE: 0-UNK LOCOMOTION: STAIRS: Activity did not occur on this shift LOCOMOTION: STAIRS - SCORE: 0-UNK COMPREHENSION: COMPREHENSION: TYPE: Both COMPREHENSION - STEP 1: Does the patient require help to understand complex and abstract ideas (such as current events, finan neal, discharge planning, medical issues, relationships, etc)? No. COMPREHENSION - STEP 2: Does the patient need extra time, require an assistive device (such as glasses, hearing aids, or an a ugmentative communication system), OR does s/he have mild difficulty expressing complex and abstract ideas (including mild dysarthria or mild word-finding problems)? No. COMPREHENSION - SCORE: 7-IND EXPRESSION EXPRESSION: TYPE: Both EXPRESSION - STEP 1: Does the patient require help expressing complex and abstract ideas (such as current events, finances , discharge planning, medical issues, relationships, etc)? No. EXPRESSION - STEP 2: Does the patient need extra time, require an assistive device (such as augmentive communication syste m or a communication board), OR does s/he have mild difficulty expressing complex and abstract ideas (including mild dysarthria or mild word-find problems)? No. EXPRESSION - SCORE: 7-IND SOCIAL INTERACTION: SOCIAL INTERACTION - STEP 1: Does the patient require a helper to interact with others in social and therapeutic situations? No. SOCIAL INTERACTION - STEP 2: Does the patient need extra time in social situations, OR does s/he interact with staff, other patien ts, and family members ONLY in structured environments, OR does s/he require medication for social in teraction? No. SOCIAL INTERACTION - SCORE: 7-IND PROBLEM SOLVING: PROBLEM SOLVING - STEP 1: Does the patient need help to solve complex problems such as managing a checking account or confronti ng interpersonal problems? No. PROBLEM SOLVING - STEP 2: Does the patient require extra time to make decisions or solve problems, OR does s/he have slight dif ficulty reading, initiating, or self-correcting in unfamiliar situations? No. PROBLEM SOLVING - SCORE: 7-IND MEMORY: MEMORY - STEP 1: Does the patient need help to remember frequently encountered people, daily routines, and executing r equests? No. MEMORY - STEP 2: Does the patient have slight difficulty recognizing frequently encountered people, daily routines, or executing requests without the need for repetition or using self-initiated or environmental cues to remember? No. MEMORY - SCORE: 7-IND SIGNATURE PANEL: The following modified sections: Eating - Score, Grooming - Score, Bathing - Score, Dressing - Upper Body - Score, Dressing - Lower Body - Score, Toileting - Score, Transfers: Bed, Chair, Wheelchair - S core, Transfers: Toilet - Score, Transfers: Shower - Score, Transfers: Tub - Score, Comprehension - S core, Expression - Score, Social Interaction - Score, Problem Solving - Score, Memory - Score were [e lectronically] signed by Jayshree Rios OT on SatJun 10 2018 10:57:32 GMT-0500 (Central Daylight T arsh)
[2018-06-10] MEDS: ONDANSETRON 4 MG (ODT) TAB PO PRN (13:10)
[2018-06-10] MEDS ORDERED: MECLIZINE HCL 12.5 MG TAB PO PRN (13:29)
--- NOTE | 2018-06-10 18:03 | R.PN ---
ENCOUNTER DATE AND TIME: 06/10/2018 18:01 (CDT) NAME SIDDHARTHA WILDER DATE OF : 1950 DATE OF ADMISSION: 05/29/2018 11:23 (CDT) Right Displaced femoral Neck FractureRight Nondisplaced Distal Radius FractureCHIEF COMPLAINT: Right hip fracture SUBJECTIVE: Pt denied any Shortness of Breath. Pt denied any depression. Performed bed mobility and transfers with modified independence. Ambulated 1250' with modified indepe ndence using a right platform rolling walker. Up and down 15 steps with modified independence using left hand rail. VITAL SIGNS Temperature: 97.9 F SBP/DBP: 111/60 Pulse: 71 Resp: 16 MEDICATION ALLERGIES: Morphine ENVIRONMENTAL ALLERGIES: None Known - Substance Allergies None Known - Other Allergies None Known NURSING: - Shower allowing shower - Lab Results blood Sugar Check ACHS - Skin care per protocol PRECAUTIONS: - Anterior Hip Precaution No abduction No active extension No adduction across midline No external rotation No hip flexion >90 degrees No internal rotation - Posterior Hip Precaution No adduction across midline No external rotation No hip flexion >90 degrees No internal rotation No wheel chair propulsion - Weight Bearing Precaution WBAT right LE NWB right wrist ACTIVITIES OOB only with supervision THERAPIES: - Occupational Therapy Evaluate and Treat. - Physical Therapy Evaluate and Treat. PHYSICAL EXAM - Gen Alert and awake Lying in bed No apparent distress Oriented to: person, time, and place - Skin No skin breakdown. Normacephalic - Eyes No abnormalities - ENMT No abnormalities - Neck No abnormalities - CVS RRR - Chest Clear - Abd Soft - GI Non distended Deferred - No abnormalities - Ext No significant edema - MSK 4+/5 weakness in right upper and lower extremity. - Neuro 4/5 strength right upper and lower extremity. - Psych No abnormalities ASSESSMENT: Pt. is a 68 yo Right-handed female.On 05/25/2018 she was admitted to [facility] with diagnosis Right Displaced femoral Neck Fracture.Her impairment category is Orthopaedic Di sorders 08 - Unilateral Hip Fracture (05.31).Pre-morbidly, Pt. was independent/mod-I in Social Cogni tion, Self-Care, Locomotion, Sphincter Control, Transfers Control, and Communication; and she had goo d Sphincter Control.Currently, she has deficits of Balance, Self-Care, Locomotion, Endurance, Safety Awareness, and Transfers Control.Pt. is now referred to [facility] for acute i n-patient rehabilitation in order to maximize patient's functional independence in activities of lui y living, strength, ROM, and mobility.- Rehab Goal Patient has realistic goal of being discharged at assistance level 6-Tony to reside at Home with Fam avni/Relatives. MDM/PLAN: - Physical Therapy Decreased range of motion - to improve, our physical therapists will perform initial evaluation of p t's status upon admission and devise an individualized program for increasing patient's Range of Conrad on. Gait dysfunction - to improve, our physical therapists will perform initial evaluation of pt's statu s upon admission and devise an individualized program for Gait Training, and Wheel Chair mobility Inability to transfer - to improve, our physical therapists will perform initial evaluation of pt's status upon admission and devise an individualized program for Bed mobility Need for home safety evaluation - to improve, our physical therapists will perform initial evaluatio n of pt's status upon admission and devise an individualized program for Home Evaluation Need in caregiver upon discharge - to improve, our physical therapists will perform initial evaluati on of pt's status upon admission and devise an individualized program for Caregiver Training Edema - to improve, our physical therapists will perform initial evaluation of pt's status upon admi ssion and devise an individualized program for Elevation Training, and Lymphedema Therapy New precaution - to improve, our physical therapists will perform initial evaluation of pt's status upon admission and devise an individualized program for Patient precaution education Poor balance - to improve, our physical therapists will perform initial evaluation of pt's status up on admission and devise an individualized program for Balance Training Poor endurance - to improve, our physical therapists will perform initial evaluation of pt's status upon admission and devise an individualized program for Endurance Training Weakness - to improve, our physical therapists will perform initial evaluation of pt's status upon a dmission and devise an individualized program for Aquatic Therapy, Neuromuscular Reeducation, and Str engthening Achieving independence - to improve, our physical therapists will perform initial evaluation of pt's status upon admission and devise an individualized program for Community Reintegration Activities - Occupational Therapy ADL deficits - to improve, our occupation therapists will perform initial evaluation of pt's status upon admission and devise an individualized program for Bathing, Bed mobility, Community Reintegratio n, Cooking, Dressing, Eating, Fine Motor Skills, Grooming, Homemaking, Kitchen Mobility, Laundry, Pat ient Education, Safety Awareness, Splinting - Positioning, Transfers(Toilet, Tub, Shower), and Wheel Chair Management Need for animal care service worker - to improve, our occupation therapists will perform initial evaluation of pt's status upon admission and devise an individualized program for Caregiver Training Weakness - to improve, our occupation therapists will perform initial evaluation of pt's status upon admission and devise an individualized program for Aquatic Therapy, Balance, Endurance, UE ROM, and UE strengthening - Anterior Hip Precaution No abduction No active extension No adduction across midline No external rotation No hip flexion >90 degrees No internal rotation - Diet - Liquid Texture Continue Regular - Tube Feed Continue N/A - Diet Type Continue Regular - Posterior Hip Precaution No adduction across midline No external rotation No hip flexion >90 degrees No internal rotation No wheel chair propulsion - Lab Results blood Sugar Check ACHS - Weight Bearing Precaution WBAT right LE NWB right wrist - Skin care per protocol - Diet - Solid Texture Continue Regular - Shower allowing shower FUNCTIONAL STATUS: UPDATED AT WEEKLY TEAM CONFERENCE - Bladder Same accident frequency: 7-Ind - No accidents in the past 7 days - Bowel Same accident frequency: 7-Ind - No accidents in the past 7 days - Walking Same score based on distance walked: 3(>=150ft) - Wheelchair Same score based on distance traveled: 0(N/A) FUNCTIONAL STATUS: - Self-Care A. Eating sup B. Grooming sup C. Bathing Key D. Dressing - [place] E. Dressing - Lower modA F. Toileting modA - Sphincter Control G: Bladder control Ind H: Bowel control Ind - Transfers Control I. Bed/Chair/Wheelchair modA J. Toilet modA K. Tub/Shower ADNO - Locomotion L. Walk/Wheelchair (B) Key M. Stairs ADNO - Communication N. Comprehension (B) Ind O. Expression (B) Ind - Social Cognition P. Social Interaction Ind Q. Problem Solving Ind R. Memory Ind - Endurance Fair - Balance Fair - Safety Awareness Fair CURRENT FUNC. DEFICITS: Balance, Self-Care, Locomotion, Endurance, Safety Awareness, and Transfers Control SIGNATURE PANEL: (CDT)
[2018-06-10] MEDS: ATORVASTATIN 10 MG TAB PO SCH (19:59)
[2018-06-10] MEDS: MELATONIN 3 MG TABLET PO PRN (20:00)
[2018-06-10] MEDS: DOCUSATE NA/SENNA CONC 1 TAB PO SCH (20:01)
--- NOTE | 2018-06-11 03:21 | FAST ---
SHIFT START DATE/TIME: 06/10/2018 19:00 (CDT) SHIFT END DATE/TIME: 06/11/2018 07:00 (CDT) NAME SIDDHARTHA WILDER DATE OF : 1950 DATE OF ADMISSION: 05/29/2018 11:23 (CDT) PHONE: AGE: 68 N# [id number] GENDER: Female ENCOUNTER PHYSICIAN: Dr. Luis Torres M.D. ADMISSION DIAGNOSIS: - Orthopaedic Disorders 08 - Unilateral Hip Fracture (08.11) Right Displaced femoral Neck Fracture. - Orthopaedic Disorders 08 - Other Orthopaedic (08.9) Right Nondisplaced Distal Radius Fracture. EATING: EATING - STEP 1: Does the patient require assistance when eating? Yes. EATING - STEP 2: Does the patient require the assistance of a helper? No, patient only requires an assistive device, O R s/he takes more than reasonable time to eat, OR there is a safety concern, OR s/he requires modifie d food consistency EATING - SCORE: 6-SOFIA GROOMING: Comb/brush hair Oral care Wash, rinse, and dry face Wash, rinse, and dry hands GROOMING - STEP 1: Does the patient require assistance when grooming? Yes. GROOMING - STEP 2: Does the patient require the assistance of a helper? No. The patient only requires an assistive devic e, OR takes more than reasonable time to groom, OR there is a concern for safety as the patient groom s GROOMING - SCORE: 6-SOFIA BATHING: Activity did not occur on this shift BATHING - SCORE: 0-UNK DRESSING - UPPER BODY: Patient is not dressing in public clothing ARTICLES SCORE Total number of steps: 0 DRESSING - UPPER BODY - SCORE: 0-UNK DRESSING - LOWER BODY: Patient is not dressing in public clothing ARTICLES SCORE Total number of steps: 0 DRESSING - LOWER BODY - SCORE: 0-UNK TOILETING: TOILETING - STEP 1: Does the patient require assistance with toileting? Yes. TOILETING - STEP 2: Does the patient require the assistance of a helper? No. TOILETING - SCORE: 6-SOFIA BLADDER MANAGEMENT: BLADDER MANAGEMENT - STEP 1: Does the patient control the bladder completely and intentionally without equipment or devices or med ications, and is always continent? No. BLADDER MANAGEMENT - STEP 2: Does the patient require the assistance of a helper? No, patient requires and independently uses an a ssistive device, such as a urinal, bedpan, bedside commode, catheter, absorbent pad, or collecting de vice BLADDER MANAGEMENT - SCORE: 6-SOFIA BLADDER MANAGEMENT - FREQUENCY OF ACCIDENTS: BLADDER MANAGEMENT(FA) - STEP 1: How many accidents has the patient had during the current shift? 0 BOWEL MANAGEMENT: BOWEL MANAGEMENT - STEP 1: Does the patient control bowels completely and intentionally without equipment devices or medications AND is always continent? No. BOWEL MANAGEMENT - STEP 2: Does the patient require the assistance of a helper? No, patient requires and manages independently a n assistive device such as a bedpan, bedside commode, absorbent pad, incontinent device, or collectin g device BOWEL MANAGEMENT - SCORE: 6-SOFIA BOWEL MANAGEMENT - FREQUENCY OF ACCIDENTS: BOWEL MANAGEMENT(FA) - STEP 1: How many accidents has the patient had during the current shift? 0 TRANSFERS: BED, CHAIR, WHEELCHAIR: TRANSFERS: BED, CHAIR, WHEELCHAIR - STEP 1: Does the patient require assistance with bed, chair, or wheelchair transfers? Yes. TRANSFERS: BED, CHAIR, WHEELCHAIR - STEP 2: Does the patient require the assistance of a helper? No. Patient only requires an assistive device fo r bed, chair, wheelchair transfers such as a sliding board, grab bar, or brace, OR s/he takes more th an reasonable time, OR there is a safety concern when s/he performs the transfers TRANSFERS: BED, CHAIR, WHEELCHAIR - SCORE: 6-SOFIA TRANSFERS: TOILET: TRANSFERS: TOILET - STEP 1: Does the patient require assistance with toilet transfers? Yes. TRANSFERS: TOILET - STEP 2: Does the patient require the assistance of a helper? No. Patient only requires an assistive device norris ch as a grab bar or special seat, OR s/he takes more than reasonable time to perform toilet transfers , OR there is a safety concern when s/he performs toilet transfers. TRANSFERS: TOILET - SCORE: 6-SOFIA TRANSFERS: SHOWER: Activity did not occur on this shift TRANSFERS: SHOWER - SCORE: 0-UNK TRANSFERS: TUB: Activity did not occur on this shift TRANSFERS: TUB - SCORE: 0-UNK LOCOMOTION: WALK: Activity did not occur on this shift LOCOMOTION: WALK - SCORE: 0-UNK LOCOMOTION: WHEELCHAIR: Activity did not occur on this shift LOCOMOTION: WHEELCHAIR - SCORE: 0-UNK COMPREHENSION: COMPREHENSION: TYPE: Both COMPREHENSION - STEP 1: Does the patient require help to understand complex and abstract ideas (such as current events, finan neal, discharge planning, medical issues, relationships, etc)? No. COMPREHENSION - STEP 2: Does the patient need extra time, require an assistive device (such as glasses, hearing aids, or an a ugmentative communication system), OR does s/he have mild difficulty expressing complex and abstract ideas (including mild dysarthria or mild word-finding problems)? Yes. COMPREHENSION - SCORE: 6-SOFIA EXPRESSION EXPRESSION: TYPE: Both EXPRESSION - STEP 1: Does the patient require help expressing complex and abstract ideas (such as current events, finances , discharge planning, medical issues, relationships, etc)? No. EXPRESSION - STEP 2: Does the patient need extra time, require an assistive device (such as augmentive communication syste m or a communication board), OR does s/he have mild difficulty expressing complex and abstract ideas (including mild dysarthria or mild word-find problems)? No. EXPRESSION - SCORE: 7-IND SOCIAL INTERACTION: SOCIAL INTERACTION - STEP 1: Does the patient require a helper to interact with others in social and therapeutic situations? No. SOCIAL INTERACTION - STEP 2: Does the patient need extra time in social situations, OR does s/he interact with staff, other patien ts, and family members ONLY in structured environments, OR does s/he require medication for social in teraction? No. SOCIAL INTERACTION - SCORE: 7-IND PROBLEM SOLVING: PROBLEM SOLVING - STEP 1: Does the patient need help to solve complex problems such as managing a checking account or confronti ng interpersonal problems? No. PROBLEM SOLVING - STEP 2: Does the patient require extra time to make decisions or solve problems, OR does s/he have slight dif ficulty reading, initiating, or self-correcting in unfamiliar situations? No. PROBLEM SOLVING - SCORE: 7-IND MEMORY: MEMORY - STEP 1: Does the patient need help to remember frequently encountered people, daily routines, and executing r equests? No. MEMORY - STEP 2: Does the patient have slight difficulty recognizing frequently encountered people, daily routines, or executing requests without the need for repetition or using self-initiated or environmental cues to remember? No. MEMORY - SCORE: 7-IND SIGNATURE PANEL: The following modified sections: Eating - Score, Grooming - Score, Bathing - Score, Dressing - Upper Body - Score, Dressing - Lower Body - Score, Toileting - Score, Bladder Management - Score, Bowel Man agement - Score, Transfers: Bed, Chair, Wheelchair - Score, Transfers: Toilet - Score, Transfers: Mary wer - Score, Transfers: Tub - Score, Locomotion: Walk - Score, Locomotion: Wheelchair - Score, Compre hension - Score, Expression - Score, Social Interaction - Score, Problem Solving - Score, Memory - Sc ore were [electronically] signed by Sho Abraham C.N.Emiliano on SatJun 11 2018 03:12:24 T-0500 ( Central Daylight Time)
[2018-06-11] MEDS: TRAMADOL HCL 50 MG TAB PO PRN ×2 (05:05→10:44)
[2018-06-11] MEDS: PANTOPRAZOLE 40MG TABLET PO SCH (06:36)
[2018-06-11] MEDS: HYDROCODONE/APAP 5/325 MG TAB PO PRN (06:55)
[2018-06-11] MEDS: ENOXAPARIN 40 MG/0.4 ML SQ SCH (06:59)
[2018-06-11] MEDS: LIDOCAINE 5% PATCH TOP SCH (06:59)
[2018-06-11 07:03] VITALS: BP 104/59; TEMP 96.4
[2018-06-11] MEDS: INSULIN -REGULAR HUMAN 50 UNIT/0.5 ML ML SQ SCH ×2 (07:04→11:29)
[2018-06-11] MEDS: GLUCERNA SHAKE 237 ML CAN PO SCH (08:00)
[2018-06-11] MEDS: METFORMIN HCL 500 MG TAB PO SCH (08:06)
[2018-06-11] MEDS: CYANOCOBALAMIN 1,000 MCG TAB PO SCH (08:06)
[2018-06-11] MEDS: GABAPENTIN 300 MG CAP PO SCH (08:06)
[2018-06-11] MEDS: FE SULF/FA/VIT B COMP & C TAB PO SCH (08:06)
[2018-06-11] MEDS: ASCORBIC ACID 500 MG TABLET PO SCH (08:06)
[2018-06-11] MEDS: PROMOD 30 ML DOSE PO SCH (08:07)
[2018-06-11] MEDS: FERROUS SULFATE 325 MG TAB PO SCH (08:07)
[2018-06-11] MEDS: VITAMIN D 1000 UNIT TAB PO SCH (08:07)
[2018-06-11] MEDS: ASPIRIN EC 81 MG TAB PO SCH (08:07)
--- NOTE | 2018-06-11 16:07 | FAST ---
ENCOUNTER DATE AND TIME: 06/11/2018 08:00 (CDT) NAME SIDDHARTHA WILDER DATE OF : 1950 DATE OF ADMISSION: 05/29/2018 11:23 (CDT) PHONE: AGE: 68 N# [id number] GENDER: Female ENCOUNTER PHYSICIAN: Dr. Luis Torres M.D. ADMISSION DIAGNOSIS: - Orthopaedic Disorders 08 - Unilateral Hip Fracture (08.11) Right Displaced femoral Neck Fracture. - Orthopaedic Disorders 08 - Other Orthopaedic (08.9) Right Nondisplaced Distal Radius Fracture. EATING: Activity did not occur on this shift EATING - SCORE: 0-UNK GROOMING: Activity did not occur on this shift GROOMING - SCORE: 0-UNK BATHING: Activity did not occur on this shift BATHING - SCORE: 0-UNK DRESSING - UPPER BODY: Activity did not occur on this shift Patient is not dressing in public clothing ARTICLES SCORE Total number of steps: 0 DRESSING - UPPER BODY - SCORE: 0-UNK DRESSING - LOWER BODY: Activity did not occur on this shift Patient is not dressing in public clothing ARTICLES SCORE Total number of steps: 0 DRESSING - LOWER BODY - SCORE: 0-UNK TOILETING: Activity did not occur on this shift TOILETING - SCORE: 0-UNK BLADDER MANAGEMENT: Activity did not occur on this shift BLADDER MANAGEMENT - SCORE: 7-IND BOWEL MANAGEMENT: Activity did not occur on this shift BOWEL MANAGEMENT - SCORE: 7-IND TRANSFERS: BED, CHAIR, WHEELCHAIR: TRANSFERS: BED, CHAIR, WHEELCHAIR - STEP 1: Does the patient require assistance with bed, chair, or wheelchair transfers? Yes. TRANSFERS: BED, CHAIR, WHEELCHAIR - STEP 2: Does the patient require the assistance of a helper? No. Patient only requires an assistive device fo r bed, chair, wheelchair transfers such as a sliding board, grab bar, or brace, OR s/he takes more th an reasonable time, OR there is a safety concern when s/he performs the transfers TRANSFERS: BED, CHAIR, WHEELCHAIR - SCORE: 6-SOFIA TRANSFERS: TOILET: Activity did not occur on this shift TRANSFERS: TOILET - SCORE: 0-UNK TRANSFERS: SHOWER: Activity did not occur on this shift TRANSFERS: SHOWER - SCORE: 0-UNK TRANSFERS: TUB: Activity did not occur on this shift TRANSFERS: TUB - SCORE: 0-UNK LOCOMOTION: WALK: LOCOMOTION: WALK - STEP 1: Does the patient need help to walk 150 feet? No. LOCOMOTION: WALK - STEP 2: Does the patient need an assistive device (such as an orthosis, prosthesis, crutches, or walker) to g o 150 feet, OR does s/he take more than reasonable time, OR is there a concern for safety? Yes, the p atient needs an assistive device LOCOMOTION: WALK - SCORE: 6-SOFIA LOCOMOTION: WHEELCHAIR: Activity did not occur on this shift LOCOMOTION: WHEELCHAIR - SCORE: 0-UNK LOCOMOTION: STAIRS: LOCOMOTION: STAIRS - STEP 1: Does the patient need help to go up and down 12 to 14 stairs? No. LOCOMOTION: STAIRS - STEP 2: Does the patient require an assistive device - such as handrails or cane - to go up and down one flig ht of stairs, OR does s/he take more than reasonable time, OR is there a concern for safety? Yes, the patient requires an assistive device LOCOMOTION: STAIRS - SCORE: 6-SOFIA COMPREHENSION: COMPREHENSION: TYPE: Both COMPREHENSION - STEP 1: Does the patient require help to understand complex and abstract ideas (such as current events, finan neal, discharge planning, medical issues, relationships, etc)? No. COMPREHENSION - STEP 2: Does the patient need extra time, require an assistive device (such as glasses, hearing aids, or an a ugmentative communication system), OR does s/he have mild difficulty expressing complex and abstract ideas (including mild dysarthria or mild word-finding problems)? No. COMPREHENSION - SCORE: 7-IND EXPRESSION EXPRESSION: TYPE: Both EXPRESSION - STEP 1: Does the patient require help expressing complex and abstract ideas (such as current events, finances , discharge planning, medical issues, relationships, etc)? No. EXPRESSION - STEP 2: Does the patient need extra time, require an assistive device (such as augmentive communication syste m or a communication board), OR does s/he have mild difficulty expressing complex and abstract ideas (including mild dysarthria or mild word-find problems)? No. EXPRESSION - SCORE: 7-IND SOCIAL INTERACTION: SOCIAL INTERACTION - SCORE: 0-UNK PROBLEM SOLVING: PROBLEM SOLVING - SCORE: 0-UNK MEMORY: MEMORY - SCORE: 0-UNK SIGNATURE PANEL: The following modified sections: Transfers: Bed, Chair, Wheelchair - Score, Transfers: Toilet - Score , Locomotion: Walk - Score, Locomotion: Wheelchair - Score, Locomotion: Stairs - Score, Comprehension - Score, Expression - Score were [electronically] signed by Remy George PT on SatJun 11 2018 16:07:12 GMT-0500 (Central Daylight Time)
--- NOTE | 2018-07-08 19:03 | R.DS ---
FACILITY [facility] MR# [id number] NAME SIDDHARTHA WILDER [address] [facility] [place] [address] PHONE DATE OF 1950 AGE 68 SSN# [id number] GENDER Female DEXTERITY Right-handed MARITAL STATUS RACE ENCOUNTER PHYSICIAN Dr. Luis Torres M.D. REFERRING DOCTOR Roseline Coughlin REFERRING FACILITY [facility] DISCHARGE DIAGNOSIS: - Orthopaedic Disorders 08 - Unilateral Hip Fracture (08.11) Right Displaced femoral Neck Fracture. - Orthopaedic Disorders 08 - Other Orthopaedic (08.9) Right Nondisplaced Distal Radius Fracture. DISCHARGE COMORBIDITIES: - Non-Tiered Type 2 diabetes mellitus with diabetic neuropathy, unspecified (E11.40) - N/A Hyperlipidemia Renal cyst GERD Herniated disk DATE OF ADMISSION 05/29/2018 11:23 (CDT) MEDICATION ALLERGIES: Morphine ENVIRONMENTAL ALLERGIES: None Known - Substance Allergies None Known - Other Allergies None Known NURSING: - Shower allowing shower - Lab Results blood Sugar Check ACHS - Skin care per protocol PRECAUTIONS: - Anterior Hip Precaution No abduction No active extension No adduction across midline No external rotation No hip flexion >90 degrees No internal rotation - Posterior Hip Precaution No adduction across midline No external rotation No hip flexion >90 degrees No internal rotation No wheel chair propulsion - Weight Bearing Precaution WBAT right LE NWB right wrist ACTIVITIES OOB only with supervision THERAPIES: - Occupational Therapy Evaluate and Treat - Physical Therapy Evaluate and Treat HISTORY OF PRESENT ILLNESS: Pt. is a 68 yo Right-handed female.On 05/25/2018 she was admitted to [facility] with diagnosis Right Displaced femoral Neck Fracture.Her impairment category is Orthopaedic Di sorders 08 - Unilateral Hip Fracture (08.11).Pre-morbidly, Pt. was independent/mod-I in Sphincter Co ntrol, Communication, and Social Cognition; and she had good Sphincter Control.Currently, she has def icits of Balance, Self-Care, Locomotion, Endurance, Safety Awareness, and Transfers Control.Pt. is no w referred to [facility] for acute in-patient rehabilitation in order to maxim ize patient's functional independence in activities of daily living, strength, ROM, and mobility.- Re hab Goal Patient has realistic goal of being discharged at assistance level 6-Tony to reside at Home with Fam avni/Relatives. HOSPITAL COURSE: POSTERIOR HIP PRECAUTION: ANTERIOR HIP PRECAUTION: On 06/05/2018 the following precautions were added for the patient: Anterior Hip Precaution - No abd uction, Anterior Hip Precaution - No active extension, Anterior Hip Precaution - No adduction acros s midline, Anterior Hip Precaution - No internal rotation, Anterior Hip Precaution - No hip flexion >90 degrees, and Anterior Hip Precaution - No external rotation. The following precautions were removed for the patient: Anterior Hip Precaution - No internal rotati on, Anterior Hip Precaution - No external rotation, Anterior Hip Precaution - No hip flexion >90 deg lora, Anterior Hip Precaution - No external rotation, Anterior Hip Precaution - No adduction across midline, Anterior Hip Precaution - No active extension, Anterior Hip Precaution - No abduction, An terior Hip Precaution - No internal rotation, Anterior Hip Precaution - No adduction across midline, Anterior Hip Precaution - No hip flexion >90 degrees, Anterior Hip Precaution - No abduction, and Ant erior Hip Precaution - No active extension. On 05/28/2018 the following precautions were added for the patient: Anterior Hip Precaution - No addu ction across midline, Anterior Hip Precaution - No hip flexion >90 degrees, Anterior Hip Precaution - No abduction, Anterior Hip Precaution - No active extension, Anterior Hip Precaution - No external r otation, and Anterior Hip Precaution - No internal rotation. On 05/28/2018 the following precautions were added for the patient: Posterior Hip Precaution - No hip flexion >90 degrees, Posterior Hip Precaution - No external rotation, Posterior Hip Precaution - No wheel chair propulsion, Posterior Hip Precaution - No adduction across midline, and Posterior Hip Pre caution - No internal rotation. On 06/05/2018 the following precautions were added for the patient: Posterior Hip Precaution - No in ternal rotation, Posterior Hip Precaution - No wheel chair propulsion, Posterior Hip Precaution - N o external rotation, Posterior Hip Precaution - No hip flexion >90 degrees, and Posterior Hip Precau tion - No adduction across midline. The following precautions were removed for the patient: Posterior Hip Precaution - No hip flexion >90 degrees, Posterior Hip Precaution - No wheel chair propulsion, Posterior Hip Precaution - No wheel chair propulsion, Posterior Hip Precaution - No internal rotation, Posterior Hip Precaution - No hi p flexion >90 degrees, Posterior Hip Precaution - No external rotation, Posterior Hip Precaution - No adduction across midline, Posterior Hip Precaution - No internal rotation, Posterior Hip Precautio n - No adduction across midline, and Posterior Hip Precaution - No external rotation. On 05/28/2018 the following precautions were added for the patient: Weight Bearing Precaution - WBAT right LE, and Weight Bearing Precaution - NWB right wrist. On 05/29/2018 the following precautions were added for the patient: Weight Bearing Precaution - NWB right wrist, and Weight Bearing Precaution - WBAT right LE. On 06/05/2018 the following precautions were removed for the patient: Weight Bearing Precaution - NW B right wrist, and Weight Bearing Precaution - WBAT right LE. On 06/10/2018 the following precautions were added for the patient: Weight Bearing Precaution - WBAT right LE, and Weight Bearing Precaution - NWB right wrist. DIET - LIQUID TEXTURE: On 05/28/2018 Pt was upgraded to Regular Diet - Liquid Texture. DIET - SOLID TEXTURE: On 05/28/2018 Pt was upgraded to Regular Diet - Solid Texture. DIET TYPE: On 05/28/2018 Pt was upgraded to Regular Diet Type. TUBE FEED: On 05/28/2018 Pt was changed to N/A Tube Feed. WEIGHT BEARING PRECAUTION: DISCHARGE PHYSICAL EXAM - Gen Alert and awake Lying in bed No apparent distress Oriented to: person, time, and place - Skin No skin breakdown. Normacephalic - Eyes No abnormalities - ENMT No abnormalities - Neck No abnormalities - CVS RRR - Chest Clear - Abd Soft - GI Non distended Deferred - No abnormalities - Ext No significant edema - MSK 4+/5 weakness in right upper and lower extremity. - Neuro 4/5 strength right upper and lower extremity. - Psych No abnormalities FUNCTIONAL STATUS: - Self-Care A. Eating 5-sup 7-Ind B. Grooming 5-sup 7-Ind C. Bathing 4-Key 6-Tony D. Dressing - Upper 4-Key 7-Ind E. Dressing - Lower 3-modA 5-sup F. Toileting 3-modA 6-Tony - Sphincter Control G: Bladder control 7-Ind 7-Ind H: Bowel control 7-Ind 7-Ind - Transfers Control I. Bed/Chair/Wheelchair 3-modA 6-Tony J. Toilet 3-modA 6-Tony K. Tub/Shower 0-ADNO 6-Tony - Locomotion L. Walk/Wheelchair (B) 4-Key 6-Tony M. Stairs 0-ADNO 6-Tony - Communication N. Comprehension (B) 7-Ind 7-Ind O. Expression (B) 7-Ind 7-Ind - Social Cognition P. Social Interaction 7-Ind 7-Ind Q. Problem Solving 7-Ind 7-Ind R. Memory 7-Ind 7-Ind - Endurance Fair - Balance Fair - Safety Awareness Fair DISCHARGE INSTRUCTIONS: - N/A Lovenox 40 mg sq daily and aspirin 81 mg daily. DISCHARGE PLAN, FOLLOW UP CARE PROVISIONS: - Estimated Length of Stay (days) 12. - Consensus on plan Discharge plan has been discussed with primary caregiver. Patient/Family is in agreement with the fredi n. Primary caregiver is in agreement with the plan. - Patient/Family Goals Return home with assistance. - Planned Living Setting Upon Discharge Home, to live with Family/Relatives. SIGNATURE PANEL: (CDT)
== END 2018-06-11 12:15 | disposition home health service (06) | DRG 561 ==
LOC: 5TH 05-29 11:23
PROVIDERS: ADMIT Psychiatry & Neurology Neurology with Special Qualifications in Child Neurology; ATTEND Psychiatry & Neurology Neurology with Special Qualifications in Child Neurology
DX: S72.001D Fracture of unspecified part of neck of right femur, subsequent encounter for closed fracture with routine healing (principal); S52.501D Unspecified fracture of the lower end of right radius, subsequent encounter for closed fracture with routine healing; E11.40 Type 2 diabetes mellitus with diabetic neuropathy, unspecified; E78.5 Hyperlipidemia, unspecified; K21.9 Gastro-esophageal reflux disease without esophagitis; E86.0 Dehydration
CPT/HCPCS: 36415; 74018; 80048; 81001; 82040; 82962; 83735; 84134; 85025; 87086; 87088; J1650

== ENCOUNTER 2019-03-16 19:37 | Emergency (ER) | payer BC, OTHER ==
--- OUTSIDE RECORDS SUMMARY | 2019-03-16 19:39 | XMS REPORT | Clinical Summary ---
:1950 Author Organization [facility] Address [address] [place] [id number] Care Team Providers Name Role Phone Vita Taylor Primary Care Provider Allergies Active Allergy Reactions Severity Noted Date Comments Hydrocodone Palpitations, Other (See Comments) High 08/21/2016 Headaches Morphine GI Intolerance High 08/21/2016 Medications Medication Sig Dispensed Refills Start Date End Date Status HYDROcodone-acetaminoph Take 1 tablet by 0 06/11/2016 Active en (NORCO 10-325) mouth 2 (two) 10-325 mg per tablet times a day. metFORMIN (GLUCOPHAGE) Take 500 mg by 6 07/07/2016 Active 500 MG tablet mouth 2 (two) times a day. MOVANTIK 25 mg tablet TAKE 1 TABLET 0 07/24/2016 Active tablet ONCE A DAY FOR 90 DAY(S) ondansetron (ZOFRAN) 4 TAKE 1 TABLET BY 0 07/14/2016 Active MG tablet MOUTH EVERY 12 HOURS NEEDED FOR NAUSEA valACYclovir (VALTREX) Take 1,000 mg by 2 07/23/2016 Active 1000 MG tablet mouth 2 (two) times a day. omeprazole (PriLOSEC) Take 40 mg by 0 Active 40 MG capsule mouth daily. aspirin (ECOTRIN) 81 MG Take 81 mg by 0 Active enteric coated tablet mouth daily. cyanocobalamin, vitamin Place 2,500 mcg 0 Active B-12, (VITAMIN B-12) under the tongue 2,500 mcg tablet, daily. sublingual ascorbic acid, vitamin Take 1,000 mg by 0 Active C, (vitamin C) 1000 MG mouth daily. tablet cholecalciferol, Take 1,000 Units 0 Active vitamin D3, (VITAMIN by mouth daily. D3) 1,000 unit tablet psyllium husk, Take 1 Units by 0 Active aspartame, (METAMUCIL mouth daily. [employer]) 3.4 gram/5.8 gram powder pravastatin (PRAVACHOL) Take 40 mg by 0 Active 40 MG tablet mouth daily. multivitamin with Take 1 tablet by 0 Active minerals tablet mouth daily. Active Problems [...] Assigned at Date Recorded Not on file Job Start Date Occupation Industry Not on file Not on file Not on file Travel History Travel Start Travel End No recent travel history available. Last Filed Vital Signs Not on file Plan of Treatment Health Maintenance Due Date Last Done Comments DIABETIC RETINAL EYE EXAM 1950 DIABETIC FOOT EXAM 01/18/1960 BREAST CANCER SCREENING 01/18/2000 COLON CANCER SCREENING 01/18/2000 SHINGLES VACCINES (#1) 01/18/2000 65+ PNEUMOCOCCAL VACCINE (1 of 2 - PCV13) 2015 PNEUMOCOCCAL POLYSACCHARIDE VACCINE AGE 65 AND OVER 2015 INFLUENZA VACCINE 05/21/2019 Results Not on fileafter 03/15/2018 Insurance Payer Benefit Plan / Subscriber ID Effective Dates Phone Address Type Group BCBS BCBS CHOICE xxxxxxxxxxxx 2014-Present PPO PPO/[employer] PPO MEDICARE MEDICARE PART A xxxxxxxxxx 2014-Present [place], [place] Medicare AND B Advance Directives Patient has advance care planning documents on file. For more information, please contact:Mark Pinzon[address] [place] [place] [address]
[2019-03-16 20:28] LABS: Absolute Lymphocytes (CBC) 1.6 K/uL (0.7-4.9); Absolute Monocytes 0.4 K/uL (0.1-1.3); Absolute Neutrophil 3.6 K/uL (1.8-8.0); Eosinophils % 2.3 % (0-4.4); Hematocrit 38.2 % (36.0-45.0); Lymphocytes % 27.9 % (15.3-44.8); MPV 7.6 fL (7.6-11.3); Monocytes % 6.3 % (3.3-12.3); RBC Red Blood Cell Count 4.06 M/uL (3.86-4.86)
[2019-03-16 20:29] LABS: Protime INR 0.94
[2019-03-16 20:46] LABS: ALT/SGPT 24 U/L (12-78); AST/SGOT 14 U/L (15-37); Albumin 3.7 g/dL (3.4-5.0); Alkaline Phosphatase 93 U/L (45-117); BUN Blood Urea Nitrogen 14 mg/dL (7-18); Bicarbonate 25 mmol/L (21-32); Bilirubin Direct < 0.1 mg/dL (0-0.2); Bilirubin Total 0.2 mg/dL (0.2-1.0); Glucose Level 122 mg/dL (74-106); Magnesium 2.1 mg/dL (1.8-2.4); NT PRO-BNP 79 pg/mL (<125); Potassium 4.2 mmol/L (3.5-5.1); Sodium Level 143 mmol/L (136-145); Troponin (Emerg Dept Use Only) < 0.02 ng/mL (0.0-0.045)
--- NOTE | 2019-03-16 20:52 | RAD REPORT ---
EXAM DESCRIPTION: RAD - Chest Single View - 03/16/2019 8:40 pm CLINICAL HISTORY: Chest pain COMPARISON: May 2018 TECHNIQUE: AP portable chest image was obtained 8 hours . FINDINGS: Lungs are clear. Heart and vasculature are normal. No measurable pleural effusion and no p neumothorax. No acute bony abnormality seen. No acute aortic findings suspected. IMPRESSION: No acute cardiopulmonary process. No suspicious change from comparison.
--- NOTE | 2019-03-16 20:53 | RAD REPORT ---
EXAM DESCRIPTION: CT - Head Brain Wo Cont - 03/16/2019 8:43 pm CLINICAL HISTORY: Weakness, dizziness, syncope COMPARISON: January 2014 CT head TECHNIQUE: Axial 5 mm thick images of the head were obtained without IV contrast. All CT scans are performed using dose optimization technique as appropriate and may include automated exposure control or mA/KV adjustment according to patient size. FINDINGS: No intracranial hemorrhage, mass, edema or shift of mid-line structures. No acute infarcti on changes seen. No cortical edema or sulcal effacement. Atrophy and chronic ischemic changes are min imal. Ventricles are normal. Mastoid air cells and visualized portions of the paranasal sinuses are clear. No acute bony findings. IMPRESSION: Negative non-contrast CT head examination for acute finding.
--- NOTE | 2019-03-16 23:10 | ER ---
Nurse's Notes [facility] Name: Tnude Ochoa Age: 69 yrs Sex: Female : 1950 Arrival Date: 03/16/2019 Time: 19:41 Bed 7 Private MD: Diagnosis: Dizziness and giddiness Presentation: 03/16 19:44 Presenting complaint: Patient states: about 1.5 hrs ago she bit her tongue while eating aa1 and has not bee able to get it to stop. States she has swallowed a lot of blood and now feels dizzy and has chest pain. Denies blood thinner use but is taking ASA 81 mg daily. Transition of care: patient was not received from another setting of care. Onset of symptoms was March 16, 2019. Risk Assessment: Do you want to hurt yourself or someone else? Patient reports no desire to harm self or others. Initial Sepsis Screen: Does the patient meet any 2 criteria? No. Patient's initial sepsis screen is negative. Does the patient have a suspected source of infection? No. Patient's initial sepsis screen is negative. Care prior to arrival: None. 19:44 Method Of Arrival: Ambulatory aa1 19:44 Acuity: GSU 3 aa1 Triage Assessment: 19:47 General: Appears in no apparent distress. comfortable, Behavior is calm, cooperative, aa1 appropriate for age. Historical: - Allergies: 19:47 Morphine; aa1 - Home Meds: 19:47 Aspirin Oral [Active]; Metformin Oral [Active]; omeprazole oral [Active]; pravastatin aa1 Oral [Active]; - PMHx: 19:47 Diabetes - NIDDM; High Cholesterol; aa1 - PSHx: 19:47 Hysterectomy; ; Joint replacement; aa1 - Immunization history:: Flu vaccine is up to date. - Social history:: Smoking status: Patient uses tobacco products, denies chronic smoking, but will smoke occasionally. - Ebola Screening: : No symptoms or risks identified at this time. Screenin:21 Abuse screen: Denies threats or abuse. Denies injuries from another. Nutritional rr5 screening: No deficits noted. Tuberculosis screening: No symptoms or risk factors identified. Fall Risk IV access (20 points). Total Breaux Fall Scale indicates No Risk (0-24 pts). Assessment: 19:50 General: Appears in no apparent distress. comfortable, Behavior is calm, cooperative, rr5 appropriate for age. 19:50 Pain: Complains of pain in chest Pain does not radiate. Pain currently is 7 out of 10 rr5 on a pain scale. Quality of pain is described as aching, Pain began gradually, Is intermittent. Neuro: Level of Consciousness is awake, alert, obeys commands, Oriented to person, place, time, situation, Appropriate for age Reports dizziness. Cardiovascular: Reports chest pain, Capillary refill < 3 seconds Patient's skin is warm and dry. Respiratory: Airway is patent Respiratory effort is even, unlabored, Respiratory pattern is regular, symmetrical. GI: No signs and/or symptoms were reported involving the gastrointestinal system. : No signs and/or symptoms were reported regarding the genitourinary system. EENT: Reports tongue bite. Derm: Skin is intact, Skin temperature is warm. Musculoskeletal: Capillary refill < 3 seconds, Range of motion:. 20:50 Reassessment: Patient and/or family updated on plan of care and expected duration. Pain ea level reassessed. Patient is alert, oriented x 3, equal unlabored respirations, skin warm/dry/pink. 23:00 Reassessment: Patient and/or family updated on plan of care and expected duration. Pain ea level reassessed. Patient is alert, oriented x 3, equal unlabored respirations, skin warm/dry/pink. 23:23 Reassessment: Patient and/or family updated on plan of care and expected duration. Pain ea level reassessed. Patient is alert, oriented x 3, equal unlabored respirations, skin warm/dry/pink. Discharge instruction given to patient, verbalized the understanding of instruction. Pt left ED ambulatory, accompanied by , pt tolerating well. Vital Signs: 19:47 BP 137 / 74; Pulse 83; Resp 16; Temp 97.7; Pulse Ox 97% on R/A; Weight 55.79 kg; Height aa1 5 ft. 0 in. (152.40 cm); Pain 0/10; 20:30 BP 131 / 70; Pulse 75; Resp 18; Pulse Ox 99% ; rr5 22:25 BP 94 / 82; Pulse 75; Resp 18; Pulse Ox 99% on R/A; ea 23:00 BP 104 / 60; Pulse 72; Resp 18; Pulse Ox 98% ; ea 19:47 Body Mass Index 24.02 (55.79 kg, 152.40 cm) aa1 ED Course: 19:41 Patient arrived in ED. es 19:45 Triage completed. aa1 19:47 Arm band placed on right wrist. Patient placed in an exam room, on a stretcher. aa1 19:50 Patient has correct armband on for positive identification. Placed in gown. Bed in low rr5 position. Call light in reach. Side rails up X2. radiation monitor on. Pulse ox on. NIBP on. 19:55 Sarah Mendiola, RN is Primary Nurse. nora 19:55 Jesse Amin MD is Attending Physician. gs 20:20 Initial lab(s) drawn, by me, sent to lab. Inserted saline lock: 20 gauge in right rr5 forearm, using aseptic technique. Blood collected. 20:30 Patient maintains SpO2 saturation greater than 95% on room air. ea 20:37 X-ray completed. Portable x-ray completed in exam room. Patient tolerated procedure tm4 well. 20:39 XRAY Chest (1 view) In Process Unspecified. EDMS 20:43 CT Head Brain wo Cont In Process Unspecified. EDMS 23:20 No provider procedures requiring assistance completed. IV discontinued, intact, ea bleeding controlled, No redness/swelling at site. Pressure dressing applied. Administered Medications: No medications were administered Outcome: 23:09 Discharge ordered by . 23:26 Discharged to home ambulatory, with significant other. ea 23:26 Condition: stable 23:26 Discharge instructions given to patient, Instructed on discharge instructions, follow up and referral plans. medication usage, Demonstrated understanding of instructions, follow-up care, medications, Prescriptions given X 1. 23:27 Patient left the ED. ea Signatures: Dispatcher [employer] EDWV Anna Reynoso RN RN aa1 Reanna Anguiano Tracy tm4 Sarah Mendiola RN RN ea Starr, Gregory, MD MD Hero Muñoz RN RN rr5
--- NOTE | 2019-03-16 23:10 | EDPHYS ---
Physician Documentation [facility] Name: Tunde Ochoa Age: 69 yrs Sex: Female : 1950 Arrival Date: 03/16/2019 Time: 19:41 Bed 7 Private MD: ED Physician Jesse Amin HPI: 03/16 23:20 This 69 yrs old Female presents to ER via Ambulatory with complaints of Dizziness.gs 23:20 The patient presents with dizziness, sense of spinning. Onset: The symptoms/episode gs began/occurred acutely, just prior to arrival. Context: occurred at home, occurred while the patient was eating, just prior to the episode the patient experienced accidentally bit her tongue. Modifying factors: The symptoms are alleviated by nothing, the symptoms are aggravated by standing up, changing position. Associated signs and symptoms: Pertinent negatives: agitation, ataxia, confusion. Severity of symptoms: At their worst the symptoms were moderate in the emergency department the symptoms are unchanged. The patient has experienced similar episodes in the past, a few times. Historical: - Allergies: 19:47 Morphine; aa1 - Home Meds: 19:47 Aspirin Oral [Active]; Metformin Oral [Active]; omeprazole oral [Active]; pravastatin aa1 Oral [Active]; - PMHx: 19:47 Diabetes - NIDDM; High Cholesterol; aa1 - PSHx: 19:47 Hysterectomy; ; Joint replacement; aa1 - Immunization history:: Flu vaccine is up to date. - Social history:: Smoking status: Patient uses tobacco products, denies chronic smoking, but will smoke occasionally. - Ebola Screening: : No symptoms or risks identified at this time. ROS: 23:20 All other systems are negative. gs Exam: 23:20 Head/Face: Normocephalic, atraumatic. Eyes: Pupils equal round and reactive to light, gs extra-ocular motions intact. Lids and lashes normal. Conjunctiva and sclera are non-icteric and not injected. Cornea within normal limits. Periorbital areas with no swelling, redness, or edema. ENT: Nares patent. No nasal discharge, no septal abnormalities noted. Tympanic membranes are normal and external auditory canals are clear. Oropharynx with no redness, swelling, or masses, exudates, or evidence of obstruction, uvula midline. Mucous membranes moist. Neck: Trachea midline, no thyromegaly or masses palpated, and no cervical lymphadenopathy. Supple, full range of motion without nuchal rigidity, or vertebral point tenderness. No Meningismus. Chest/axilla: Normal chest wall appearance and motion. Nontender with no deformity. No lesions are appreciated. Cardiovascular: Regular rate and rhythm with a normal S1 and S2. No gallops, murmurs, or rubs. Normal PMI, no JVD. No pulse deficits. Respiratory: Lungs have equal breath sounds bilaterally, clear to auscultation and percussion. No rales, rhonchi or wheezes noted. No increased work of breathing, no retractions or nasal flaring. Abdomen/GI: Soft, non-tender, with normal bowel sounds. No distension or tympany. No guarding or rebound. No evidence of tenderness throughout. Back: No spinal tenderness. No costovertebral tenderness. Full range of motion. Skin: Warm, dry with normal turgor. Normal color with no rashes, no lesions, and no evidence of cellulitis. MS/ Extremity: Pulses equal, no cyanosis. Neurovascular intact. Full, normal range of motion. 23:20 Constitutional: The patient appears alert, awake. 23:20 Neuro: Orientation: is normal, Mentation: is normal, Memory: is normal, Cranial nerves: CN II- XII are normal as tested, Nystagmus is absent. Cerebellar function: normal finger to nose testing, Motor: moves all fours, strength is normal, Sensation: no obvious gross deficits, Gait: is steady. 23:20 ECG was reviewed by the Attending Physician. Vital Signs: 19:47 BP 137 / 74; Pulse 83; Resp 16; Temp 97.7; Pulse Ox 97% on R/A; Weight 55.79 kg; Height aa1 5 ft. 0 in. (152.40 cm); Pain 0/10; 20:30 BP 131 / 70; Pulse 75; Resp 18; Pulse Ox 99% ; rr5 22:25 BP 94 / 82; Pulse 75; Resp 18; Pulse Ox 99% on R/A; ea 23:00 BP 104 / 60; Pulse 72; Resp 18; Pulse Ox 98% ; ea 19:47 Body Mass Index 24.02 (55.79 kg, 152.40 cm) aa1 MDM: 19:57 Patient medically screened. ma2 23:20 Differential diagnosis: cardiac arrhythmia, CVA, generalized weakness, vertigo. Data gs reviewed: vital signs, nurses notes. Response to treatment: the patient's symptoms have markedly improved after treatment, the patient's symptoms have resolved after treatment, the patient's condition has returned to base line, pt doesn't want to stay or be transferred encouraged mri in next 48 hours, and as a result, I will discharge patient. 03/16 19:56 Order name: Basic Metabolic Panel; Complete Time: 21:38 [facility] 03/16 19:56 Order name: CBC with Diff; Complete Time: 21:38 [facility] 03/16 19:56 Order name: LFT's; Complete Time: 21:38 [facility] 03/16 19:56 Order name: Magnesium; Complete Time: 21:38 [facility] 03/16 19:56 Order name: NT PRO-BNP; Complete Time: 21:38 [facility] 03/16 19:56 Order name: PT-INR; Complete Time: 21:38 [facility] 03/16 19:56 Order name: Troponin (emerg Dept Use Only); Complete Time: 21:38 [facility] 03/16 19:56 Order name: XRAY Chest (1 view); Complete Time: 21:38 [facility] 03/16 19:56 Order name: EKG; Complete Time: 19:57 [facility] 03/16 19:56 Order name: Cardiac monitoring; Complete Time: 20:22 [facility] 03/16 19:56 Order name: EKG - Nurse/Tech; Complete Time: 20:22 [facility] 03/16 19:56 Order name: IV Saline Lock; Complete Time: 20:22 [facility] 03/16 20:34 Order name: CT Head Brain wo Cont; Complete Time: 21:38 03/16 19:56 Order name: Labs collected and sent; Complete Time: 20:22 [facility] 03/16 19:56 Order name: O2 Per Protocol; Complete Time: 20:22 [facility] 03/16 19:56 Order name: O2 Sat Monitoring; Complete Time: 20:22 ma2 EC:20 Rate is 76 beats/min. Rhythm is regular. CA interval is normal. QRS interval is normal. gs No Q waves. T waves are Flattened. No ST changes noted. Clinical impression: NSR w/ Non-specific ST/T Changes. Interpreted by me. Administered Medications: No medications were administered Disposition: 03/16/19 23:09 Discharged to Home. Impression: Dizziness and giddiness. - Condition is Stable. - Discharge Instructions: Dizziness, Vertigo, Gtep-eh-Hcyx. - Prescriptions for Meclizine 25 mg Oral Tablet - take 1 tablet by ORAL route every 8 hours As needed; 30 tablet. - Medication Reconciliation Form, Thank You Letter, Antibiotic Education, Prescription Opioid Use form. - Follow up: Private Physician; When: 2 - 3 days; Reason: Re-evaluation by your physician. - Notes: MRI tomorrow Signatures: Dispatcher [employer] EDMS Anna Reynoso RN RN aa1 Sarah Mendiola RN RN Jesse Dumont MD MD gs Edgar Linares MD MD ma2 Corrections: (The following items were deleted from the chart) 23:27 23:09 03/16/2019 23:09 Discharged to Home. Impression: Dizziness and giddiness. ea Condition is Stable. Forms are Medication Reconciliation Form, Thank You Letter, Antibiotic Education, Prescription Opioid Use. Follow up: Private Physician; When: 2 - 3 days; Reason: Re-evaluation by your physician. gs
[2019-03-16 23:37] VITALS: TEMP 97.7
[2019-03-16 23:41] VITALS: BP 104/60; O2SAT 98
--- NOTE | 2019-03-17 07:58 | EKG ---
Test Date: 2019-03-16 Test Time: 20:24:03 Direct Care Professional: CHELLE MEASUREMENT RESULTS: Intervals: Rate: 76 AZ: 196 QRSD: 74 QT: 428 QTc: 481 [place]: P: 39 AZ: 196 QRS: 5 T: 31 INTERPRETIVE STATEMENTS: Normal sinus rhythm Cannot rule out Inferior infarct, age undetermined Abnormal ECG Compared to ECG 05/25/2018 05:23:45 Myocardial infarct finding now present Prolonged QT interval no longer present Electronically Signed On 03-17-19 07:56:57 CDT by Dennis Tovar
== END 2019-03-16 23:27 | disposition home or self-care (01) ==
LOC: ER 19:37
DX: R42 Dizziness and giddiness (principal); E11.9 Type 2 diabetes mellitus without complications; E78.00 Pure hypercholesterolemia, unspecified; Z72.0 Tobacco use; Z79.82 Long term (current) use of aspirin; Z88.5 Allergy status to narcotic agent
CPT/HCPCS: 36415; 70450; 71045; 80048; 80076; 83735; 83880; 84484; 85025; 85610; 93005; 99285

== ENCOUNTER 2021-03-21 15:53 | Inpatient (IN) | payer OTHER ==
--- NOTE | 2021-03-21 17:52 | RAD REPORT ---
EXAM DESCRIPTION: RAD - Chest Single View - 03/21/2021 5:41 pm CLINICAL HISTORY: Cough;Abdominal distention COMPARISON: Portable February 2019 TECHNIQUE: AP portable chest image was obtained 03/21/2021 5:41 pm . FINDINGS: No focal lung parenchymal process. Interstitial pattern is prominent but not clearly diffe rent from comparison Heart and vasculature are normal. No measurable pleural effusion and no pneumoth orax. No acute bony abnormality seen. No acute aortic findings suspected. IMPRESSION: No acute cardiopulmonary process. No significant change from comparison study.
--- NOTE | 2021-03-21 17:54 | RAD REPORT ---
EXAM DESCRIPTION: US - Abdomen Exam Limited - 03/21/2021 5:34 pm CLINICAL HISTORY: ABD PAIN COMPARISON: Abdomen W Decubitus dated 01/04/2021 FINDINGS: Gallbladder is contracted. Patient was not fasting for the examination. Sludge in a few sm all punctate stones are evident. Stones are favored over small polyps given the clustered appearance on the dependent portion of the gallbladder wall. No abnormal wall thickening. Wall thickness is acce ntuated due to the contraction. No pericholecystic fluid. No common duct stone or biliary tree dilatation identified. IMPRESSION: Small echogenic foci in a contracted gallbladder favored to be small stones and sludge r ather than polyps. Patient was not adequately fasting which would explain a contracted gallbladder. No biliary tree abnormality.
[2021-03-21] MEDS ORDERED: NA CHLORIDE 0.9% 1,000 ML ONE (19:51)
[2021-03-21] MEDS ORDERED: FAMOTIDINE 20 MG/2 ML VIAL IV ONE (19:51)
[2021-03-21 19:59] LABS: Absolute Lymphocytes (CBC) 1.3 K/uL (0.7-4.9); Basophils % 0.8 % (0-1.3); Hematocrit 40.4 % (36.0-45.0); Lymphocytes % 26.7 % (15.3-44.8); MPV 9.5 fL (7.6-11.3); Protime INR 0.91; RBC Red Blood Cell Count 4.26 M/uL (3.86-4.86)
[2021-03-21 20:08] LABS: Albumin 3.7 g/dL (3.4-5.0); Alkaline Phosphatase 388 U/L (45-117); BUN Blood Urea Nitrogen 13 mg/dL (7-18); Bicarbonate 23 mmol/L (21-32); Bilirubin Direct 1.6 mg/dL (0-0.2); Bilirubin Total 2.5 mg/dL (0.2-1.0); Glucose Level 161 mg/dL (74-106); Lipase 199 U/L (73-393); NT PRO-BNP 238 pg/mL (<125); Protein, Total 7.6 g/dL (6.4-8.2); Sodium Level 138 mmol/L (136-145); Troponin (Emerg Dept Use Only) < 0.02 ng/mL (0.0-0.045)
[2021-03-21 20:55] LABS: AST/SGOT 130 U/L (15-37); Potassium 4.1 mmol/L (3.5-5.1)
[2021-03-21 20:56] LABS: Magnesium 2.4 mg/dL (1.8-2.4)
[2021-03-21 20:58] LABS: ALT/SGPT 358 U/L (12-78)
[2021-03-21 21:00] LABS: Urine Blood Trace-intact (Negative); Urine Glucose Negative (Negative); Urine Protein Negative (Negative); Urine Specific Gravity 1.015 (1.005-1.030)
[2021-03-21] MEDS ORDERED: FENTANYL CITR 100 MCG/2 ML ONE (22:45)
[2021-03-21] MEDS ORDERED: CEFTRIAXONE/SWI 1gm 1 GM/10 ML SYR ONE (22:45)
--- NOTE | 2021-03-22 00:18 | ER ---
Nurse's Notes [facility] Name: Tunde Ochoa Age: 71 yrs Sex: Female : 1950 Arrival Date: 03/21/2021 Time: 15:55 Bed 6 Private MD: Diagnosis: Abnormal results of liver function studies;Mass of Common Hepatic Duct Presentation: 03/21 17:19 Chief complaint: Patient states: Sent by Dr. Schrader reports elevated liver enzymes, pt jl7 c/o lower abdominal pain, orange urine and sob x 3 days. Coronavirus screen: Client denies travel out of the [place] in the last 14 days. At this time, the client does not indicate any symptoms associated with coronavirus-19. Ebola Screen: No symptoms or risks identified at this time. Initial Sepsis Screen: Does the patient meet any 2 criteria? No. Patient's initial sepsis screen is negative. Does the patient have a suspected source of infection? No. Patient's initial sepsis screen is negative. Risk Assessment: Do you want to hurt yourself or someone else? Patient reports no desire to harm self or others. Onset of symptoms was March 18, 2021. Care prior to arrival: None. 17:19 Method Of Arrival: Ambulatory jl7 17:19 Acuity: GUS 3 jl7 Historical: - Allergies: 17:21 Morphine; jl7 - PMHx: 17:21 Diabetes - NIDDM; High Cholesterol; jl7 - PSHx: 17:21 Hysterectomy; ; Joint replacement; jl7 - Immunization history:: Adult Immunizations unknown. - Social history:: Smoking status: Patient denies any tobacco usage or history of. - Family history:: not pertinent. Screenin:10 Abuse screen: Denies threats or abuse. Denies injuries from another. Nutritional ad5 screening: No deficits noted. Tuberculosis screening: No symptoms or risk factors identified. Fall Risk None identified. Assessment: 19:10 Reassessment: Pt reports sent to ED by PCP for additional eval/tx for abnormal labs. Pt ad5 c/o yanelis flank pain and "orange" colored urine at home. States SOB over past few days, resp even/unlabored at this time. Denies other c/o, skin pwd. Abd soft, non-tender. General: Appears in no apparent distress. comfortable, Behavior is calm, cooperative, appropriate for age. Pain: Complains of pain in R and L flank. Neuro: No deficits noted. Level of Consciousness is awake, alert, obeys commands, Oriented to person, place, time, situation, Appropriate for age. Cardiovascular: No deficits noted. Heart tones present Capillary refill < 3 seconds Patient's skin is warm and dry. Pulses are all present. Rhythm is regular. Respiratory: No deficits noted. Airway is patent Respiratory effort is even, unlabored, Respiratory pattern is regular, symmetrical, Breath sounds are clear bilaterally. GI: Abdomen is flat, non-distended, Bowel sounds present X 4 quads. : Reports urinary frequency, "orange" colored urine. EENT: No deficits noted. No signs and/or symptoms were reported regarding the EENT system. Derm: No deficits noted. No signs and/or symptoms reported regarding the dermatologic system. Skin is pink, warm \\T\\ dry. Musculoskeletal: No deficits noted. No signs and/or symptoms reported regarding the musculoskeletal system. 20:39 Reassessment: Patient appears in no apparent distress at this time. No changes from ad5 previously documented assessment. Patient and/or family updated on plan of care and expected duration. Pain level reassessed. Patient is alert, oriented x 3, equal unlabored respirations, skin warm/dry/pink. 21:30 Reassessment: Patient appears in no apparent distress at this time. Patient and/or jb4 family updated on plan of care and expected duration. Pain level reassessed. Patient is alert, oriented x 3, equal unlabored respirations, skin warm/dry/pink. 22:30 Reassessment: Patient appears in no apparent distress at this time. Patient and/or jb4 family updated on plan of care and expected duration. Pain level reassessed. Patient is alert, oriented x 3, equal unlabored respirations, skin warm/dry/pink. 03/22 00:00 Reassessment: Patient appears in no apparent distress at this time. Patient and/or jb4 family updated on plan of care and expected duration. Pain level reassessed. Patient is alert, oriented x 3, equal unlabored respirations, skin warm/dry/pink. 01:00 Reassessment: Patient appears in no apparent distress at this time. Patient and/or jb4 family updated on plan of care and expected duration. Pain level reassessed. Patient is alert, oriented x 3, equal unlabored respirations, skin warm/dry/pink. 01:59 Reassessment: Patient appears in no apparent distress at this time. No changes from ad5 previously documented assessment. Patient is alert, oriented x 3, equal unlabored respirations, skin warm/dry/pink. Vital Signs: 03/21 17:19 BP 123 / 74; Pulse 72; Resp 17; Temp 97.1; Pulse Ox 99% ; Weight 56.7 kg; Pain 9/10; jl7 20:39 BP 132 / 68; Pulse 68; Resp 16 S; Pulse Ox 98% on R/A; ad5 21:00 BP 134 / 70; Pulse 66; Resp 24; Pulse Ox 99% on R/A; jb4 22:30 BP 130 / 82; Pulse 67; Resp 14; Pulse Ox 98% on R/A; jb4 23:30 BP 126 / 65; Pulse 70; Resp 16; Pulse Ox 97% on R/A; jb4 03/22 00:30 BP 132 / 67; Pulse 62; Resp 17; Pulse Ox 97% on R/A; jb4 01:30 BP 133 / 64; Pulse 68; Resp 21; Pulse Ox 97% on R/A; jb4 ED Course: 03/21 15:55 Patient arrived in ED. ds1 16:53 Julian Tavarez MD is Attending Physician. stormy 17:20 Triage completed. jl7 17:21 Arm band placed on right wrist. Patient placed in waiting room, Patient notified of jl7 wait time. 17:34 US Abdomen Limited In Process Unspecified. EDMS 17:39 XRAY Chest (1 view) In Process Unspecified. EDMS 18:48 Rebeca Patterson is Primary Nurse. kg 19:20 Julian Rinaldi PA is PHCP. cp 20:39 No provider procedures requiring assistance completed. ad5 21:31 CT Abd/Pelvis - IV Contrast Only In Process Unspecified. EDMS 21:40 patient's Suresh [phone]. mw2 22:14 Primary Nurse role handed off by Rebeca Patterson jb4 22:14 Bolivar Palma, RN is Primary Nurse. jb4 03/22 00:16 Ruben Fitzgerald is Hospitalizing Provider. cp 01:48 Patient admitted, IV remains in place. jb4 07:37 Primary Nurse role handed off by Bolivar Palma, ROSS 11:54 Gilmar Oro, RN is Primary Nurse. em Administered Medications: 03/21 19:40 Drug: NS 0.9% 500 ml Route: IV; Rate: bolus; Site: right wrist; jb4 19:40 Drug: Pepcid (famotidine) 20 mg Route: IVP; Site: right wrist; jb4 20:54 Drug: NS 0.9% 1000 ml Route: IV; Rate: 125 ml/hr; Site: right wrist; jb4 22:30 Drug: Rocephin (cefTRIAXone) 1 grams Route: IV; Rate: calculated rate; Site: right jb4 wrist; 22:30 Drug: fentaNYL (PF) 25 mcg Route: IVP; Site: right wrist; jb4 Outcome: 03/22 00:17 Decision to Hospitalize by Provider. cp 01:48 Admitted to ER Hold. [facility] for further documentation. jb4 01:48 Condition: stable 01:48 Discharge instructions given to patient, Instructed on the need for admit, Demonstrated understanding of instructions. 15:47 Patient left the ED. aa5 Signatures: Dispatcher [employer] EDMS Zeina Gaspar Corey, MD MD cha Munoz, Edgar, RN RN Marlys Ojeda ds1 Marichuy Alonzo RN RN aa5 Julian Rinaldi PA PA cp Bryson, James, RN ROSS jb4 Jenise Alberto RN RN jl7 Gemini Hunter mw2 Rebeca Patterson kg, Andrea ad5 Corrections: (The following items were deleted from the chart) 04:01 03/21 19:10 Reassessment: Pt reports sent to ED by PCP for additional eval/tx for ad5 abnormal labs. Pt c/o yanelis flank pain and "orange" colored urine at home. Denies other c/o, skin pwd. Abd soft, non-tender. ad5
--- NOTE | 2021-03-22 00:19 | EDPHYS ---
Physician Documentation [facility] Name: Tunde Ochoa Age: 71 yrs Sex: Female : 1950 Arrival Date: 03/21/2021 Time: 15:55 Bed 6 Private MD: ED Physician Julian Tavarez HPI: 03/21 16:56 This 71 yrs old Female presents to ER via Unassigned with complaints of Abnormal [facility] Lab Results. 16:56 The patient presents with abdominal pain abdominal distention in the upper abdomen, in stormy the lower abdomen. Onset: The symptoms/episode began/occurred 3 day(s) ago. The symptoms do not radiate. Associated signs and symptoms: Pertinent positives: dysuria, hematuria, nausea. The symptoms are described as crampy. Modifying factors: The symptoms are alleviated by nothing, the symptoms are aggravated by nothing. Severity of pain: At its worst the pain was moderate in the emergency department the pain is unchanged. The patient has not experienced similar symptoms in the past. Historical: - Allergies: 17:21 Morphine; jl7 - PMHx: 17:21 Diabetes - NIDDM; High Cholesterol; jl7 - PSHx: 17:21 Hysterectomy; ; Joint replacement; jl7 - Immunization history:: Adult Immunizations unknown. - Social history:: Smoking status: Patient denies any tobacco usage or history of. - Family history:: not pertinent. ROS: 16:56 Constitutional: Negative for fever, chills, and weight loss, Eyes: Negative for injury, stormy pain, redness, and discharge, ENT: Negative for injury, pain, and discharge, Neck: Negative for injury, pain, and swelling, Cardiovascular: Negative for chest pain, palpitations, and edema, Respiratory: Negative for shortness of breath, cough, wheezing, and pleuritic chest pain, Back: Negative for injury and pain, : Negative for injury, bleeding, discharge, and swelling, MS/Extremity: Negative for injury and deformity, Skin: Negative for injury, rash, and discoloration, Neuro: Negative for headache, weakness, numbness, tingling, and seizure, Psych: Negative for depression, anxiety, suicide ideation, homicidal ideation, and hallucinations, Allergy/Immunology: Negative for hives, rash, and allergies, Endocrine: Negative for neck swelling, polydipsia, polyuria, polyphagia, and marked weight changes, Hematologic/Lymphatic: Negative for swollen nodes, abnormal bleeding, and unusual bruising. 16:56 Abdomen/GI: Positive for abdominal pain, of the epigastric area and right upper quadrant. Exam: 16:56 Constitutional: This is a well developed, well nourished patient who is awake, alert, stormy and in no acute distress. Head/Face: Normocephalic, atraumatic. Eyes: Pupils equal round and reactive to light, extra-ocular motions intact. Lids and lashes normal. Conjunctiva and sclera are non-icteric and not injected. Cornea within normal limits. Periorbital areas with no swelling, redness, or edema. ENT: Nares patent. No nasal discharge, no septal abnormalities noted. Tympanic membranes are normal and external auditory canals are clear. Oropharynx with no redness, swelling, or masses, exudates, or evidence of obstruction, uvula midline. Mucous membranes moist. Neck: Trachea midline, no thyromegaly or masses palpated, and no cervical lymphadenopathy. Supple, full range of motion without nuchal rigidity, or vertebral point tenderness. No Meningismus. Chest/axilla: Normal chest wall appearance and motion. Nontender with no deformity. No lesions are appreciated. Cardiovascular: Regular rate and rhythm with a normal S1 and S2. No gallops, murmurs, or rubs. Normal PMI, no JVD. No pulse deficits. Respiratory: Lungs have equal breath sounds bilaterally, clear to auscultation and percussion. No rales, rhonchi or wheezes noted. No increased work of breathing, no retractions or nasal flaring. Back: No spinal tenderness. No costovertebral tenderness. Full range of motion. Female : Normal external genitalia. Skin: Warm, dry with normal turgor. Normal color with no rashes, no lesions, and no evidence of cellulitis. MS/ Extremity: Pulses equal, no cyanosis. Neurovascular intact. Full, normal range of motion. Neuro: Awake and alert, GCS 15, oriented to person, place, time, and situation. Cranial nerves II-XII grossly intact. Motor strength 5/5 in all extremities. Sensory grossly intact. Cerebellar exam normal. Normal gait. Psych: Awake, alert, with orientation to person, place and time. Behavior, mood, and affect are within normal limits. 16:56 Abdomen/GI: Inspection: distension, that is mild, Bowel sounds: normal, Palpation: mild abdominal tenderness, moderate abdominal tenderness, in the right upper quadrant, right lower quadrant and left lower quadrant, Liver: is firm, Hernia: not appreciated. 22:27 ECG was reviewed by the Attending Physician. cp Vital Signs: 17:19 BP 123 / 74; Pulse 72; Resp 17; Temp 97.1; Pulse Ox 99% ; Weight 56.7 kg; Pain 9/10; jl7 20:39 BP 132 / 68; Pulse 68; Resp 16 S; Pulse Ox 98% on R/A; ad5 21:00 BP 134 / 70; Pulse 66; Resp 24; Pulse Ox 99% on R/A; jb4 22:30 BP 130 / 82; Pulse 67; Resp 14; Pulse Ox 98% on R/A; jb4 23:30 BP 126 / 65; Pulse 70; Resp 16; Pulse Ox 97% on R/A; jb4 03/22 00:30 BP 132 / 67; Pulse 62; Resp 17; Pulse Ox 97% on R/A; jb4 01:30 BP 133 / 64; Pulse 68; Resp 21; Pulse Ox 97% on R/A; jb4 MDM: 03/21 16:59 Differential diagnosis: bowel obstruction, coronary artery disease, cholecystitis, stormy Cholelithiasis, gastritis, gastroesophageal reflux disease, myocardia ischemia or infarction, non-specific abd pain, pancreatitis, Peptic Ulcer Disease, Pyelonephritis, urinary tract infection. Data reviewed: vital signs, nurses notes, lab test result(s), EKG, radiologic studies, CT scan, plain films, ultrasound. Data interpreted: potline monitor: rate is 80 beats/min, rhythm is regular, Pulse oximetry: on room air is 100 %. Test interpretation: by ED physician or midlevel provider: ECG, plain radiologic studies. Counseling: I had a detailed discussion with the patient and/or guardian regarding: the historical points, exam findings, and any diagnostic results supporting the discharge/admit diagnosis, lab results, radiology results. 18:46 Patient medically screened. [facility] 23:45 Physician consultation: Tony Mccann MD was called at 23:45, regarding consult, cp patient's condition, left message on voicemail. 03/21 16:56 Order name: Basic Metabolic Panel; Complete Time: 21:21 [facility] 03/21 21:22 Interpretation: Normal except: CL 108; GLUC 161. 03/21 16:56 Order name: CBC with Diff; Complete Time: 20:11 [facility] 03/21 20:11 Interpretation: Normal except: PLT 113. 03/21 16:56 Order name: LFT's; Complete Time: 21:21 [facility] 03/21 21:22 Interpretation: Normal except: AST 130; ALT 358; ALK 388; BILIT 2.5; BILID 1.6; GLOB cp 3.9; A/G 0.9. 03/21 16:56 Order name: Magnesium; Complete Time: 21:21 [facility] 03/21 16:56 Order name: NT PRO-BNP; Complete Time: 21:21 [facility] 03/21 16:56 Order name: PT-INR; Complete Time: 20:11 [facility] 03/21 16:56 Order name: Troponin (emerg Dept Use Only); Complete Time: 21:21 [facility] 03/21 21:23 Interpretation: Within normal limits: TROPED < 0.02. 03/21 16:56 Order name: Lipase; Complete Time: 21:21 [facility] 03/21 16:56 Order name: Urine Culture [facility] 03/21 19:18 Order name: AMMONIA; Complete Time: 20:11 [facility] 03/21 20:55 Order name: SARS-COV-2 RT PCR; Complete Time: 21:21 [facility] 03/21 21:00 Order name: Urine Dipstick-Ancillary; Complete Time: 21:21 [facility] 03/21 21:22 Interpretation: Normal except: UBLD Trace-intact; UESTR Trace. 03/21 16:56 Order name: XRAY Chest (1 view); Complete Time: 18:59 [facility] 03/21 20:42 Interpretation: Report reviewed. 03/21 16:56 Order name: EKG; Complete Time: 16:57 [facility] 03/21 16:56 Order name: US Abdomen Limited; Complete Time: 18:59 [facility] 03/21 20:43 Interpretation: Report reviewed. 03/21 16:56 Order name: CT Abd/Pelvis - IV Contrast Only [facility] 03/22 02:22 Order name: CONS Physician Consult [facility] 03/22 02:58 Order name: NPO [facility] 03/22 02:58 Order name: CBC with Automated Diff [facility] 03/22 02:58 Order name: CBC with Automated Diff [facility] 03/22 02:58 Order name: Comprehensive Metabolic Panel [facility] 03/22 07:59 Order name: Glucose, Ancillary Testing [facility] 03/22 12:04 Order name: Glucose, Ancillary Testing [facility] 03/21 16:56 Order name: Cardiac monitoring; Complete Time: 20:36 [facility] 03/21 16:56 Order name: EKG - Nurse/Tech; Complete Time: 22:31 [facility] 03/21 16:56 Order name: IV Saline Lock; Complete Time: 20:36 [facility] 03/21 16:56 Order name: Labs collected and sent; Complete Time: 20:36 [facility] 03/21 16:56 Order name: O2 Per Protocol; Complete Time: 20:59 [facility] 03/21 16:56 Order name: O2 Sat Monitoring; Complete Time: 20:36 [facility] 03/21 16:56 Order name: Urine Dipstick-Ancillary (obtain specimen); Complete Time: 20:59 [facility] EC:27 Rate is 70 beats/min. Rhythm is regular. MO interval is prolonged at 208 msec. QRS cp interval is normal. QT interval is normal. Interpreted by me. Reviewed by me. Administered Medications: 19:40 Drug: NS 0.9% 500 ml Route: IV; Rate: bolus; Site: right wrist; jb4 19:40 Drug: Pepcid (famotidine) 20 mg Route: IVP; Site: right wrist; jb4 20:54 Drug: NS 0.9% 1000 ml Route: IV; Rate: 125 ml/hr; Site: right wrist; jb4 22:30 Drug: Rocephin (cefTRIAXone) 1 grams Route: IV; Rate: calculated rate; Site: right jb4 wrist; 22:30 Drug: fentaNYL (PF) 25 mcg Route: IVP; Site: right wrist; jb4 Disposition: 03/23 07:02 Co-signature as Attending Physician, Julian Tavarez MD I agree with the assessment and [facility] plan of care. Disposition: 03/22/21 00:17 Hospitalization ordered by Ruben Fitzgerald for Inpatient Admission. Preliminary diagnosis are Abnormal results of liver function studies, Mass of Common Hepatic Duct. - Bed requested for Telemetry/MedSurg (Inpatient). - Status is Inpatient Admission. aa5 - Condition is Stable. - Problem is new. - Symptoms are unchanged. Signatures: Dispatcher [employer] EDMS DirZeina vega Corey, MD MD cha Calderon, Audri, RN RN aa5 Julian Rinaldi PA PA cp Vanessa Lara, RN RN cg Bolivar Palma, RN RN jb4 Jenise Alberto RN RN jl7 Corrections: (The following items were deleted from the chart) 03/21 20:01 19:18 CORONAVIRUS+MR.LAB.BRZ ordered. EDMS EDMS 21:22 21:22 Normal except: AST 130; ALT 358; ALK 388; BILIT 2.5; BILID 1.6; GLOB 3.9. cp cp 03/22 02:26 00:17 Hospitalization Ordered by Ruben Fitzgerald for Inpatient Admission. Preliminary cg diagnosis is Abnormal results of liver function studies; Mass of Common Hepatic Duct. Bed requested for Telemetry/MedSurg (Inpatient). Status is Inpatient Admission. Condition is Stable. Problem is new. Symptoms are unchanged. cp 02:58 02:57 Blood Culture ordered. EDMS EDMS 14:28 02:26 03/22/2021 00:17 Hospitalization Ordered by Ruben Fitzgerald for Inpatient bd Admission. Preliminary diagnosis is Abnormal results of liver function studies; Mass of Common Hepatic Duct. Bed requested for [facility] ER HOLD. Status is Inpatient Admission. Condition is Stable. Problem is new. Symptoms are unchanged. cg 15:47 14:28 03/22/2021 00:17 Hospitalization Ordered by Ruben Fitzgerald for Inpatient aa5 Admission. Preliminary diagnosis is Abnormal results of liver function studies; Mass of Common Hepatic Duct. Bed requested for Telemetry/MedSurg (Inpatient). Status is Inpatient Admission. Condition is Stable. Problem is new. Symptoms are unchanged. bd
[2021-03-22] MEDS ORDERED: FENTANYL CITR 100 MCG/2 ML IV PRN (02:57)
[2021-03-22] MEDS: NA CHLORIDE 0.9% 1,000 ML IV SCH ×2 (03:06→16:03)
[2021-03-22] MEDS: ACETAMINOPHEN 500 MG TAB PO PRN ×2 (03:06→09:00)
[2021-03-22] MEDS ORDERED: ACETAMINOPHEN 500 MG TAB ONE ×2 (03:20→09:02)
[2021-03-22] MEDS ORDERED: NA CHLORIDE 0.9% 1,000 ML ONE (03:20)
--- NOTE | 2021-03-22 03:41 | P.HP ---
Certification for Inpatient Patient admitted to: Inpatient With expected LOS: >2 Midnights Patient will require the following post-hospital care: None Practitioner: I am a practitioner with admitting privileges, knowledge of patient current condition, hospital course, and medical plan of care. Services: Services provided to patient in accordance with Admission requirements found in Title 42 Section 412.3 of the Code of Federal Regulations Patient History Date of Service: 03/22/21 Primary Care Provider: Pierre Reason for admission: abdominal pain History of Present Illness: Ms. Ochoa is a 71 yo F with T2Dm, HLD, h/o cervical ca here today with a few months of 10/10 abdominal pain that has become progressively worse. She reports diffuse abdominal pain. She says she also feels bumps on her skin. She reports weight loss of 15lb, anorexia, dizziness, nausea, constipation, pruritus and dark urine. Denies fever. She stopped smoking a few months ago. CT shows soft tissue mass at level of common hepatic duct with associated intrahepatic biliary dilation. Plt 113. Glu 161. Tbili 2.5, Dbili 1.6, AST 130, ALT 358, alk phos 3 88. Urine with trace blood and leukocyte esterase. Allergies morphine Allergy (Mild, Verified 05/29/18 13:15) Nausea/Vomiting Home Medications: Metformin HCl [Glucophage*] 1 tab PO DAILY 05/25/18 Mv-Mn/Folic AC/Calcium/Vit K1 [Women's 50 Plus Daily Formula] 1 tab PO DAILY 05/25/18 Omeprazole [Prilosec] 40 mg PO DAILY 05/25/18 Pravastatin Sodium 1 tab PO DAILY 05/25/18 Polyethyl Gly 3350 [Glycolax*] 17 gm PO DAILY udbot 05/28/18 Ascorbic Acid [Vitamin C*] 500 mg PO DAILY #30 tablet 06/11/18 Aspirin [Aspirin EC 81 MG] 81 mg PO DAILY #30 tablet. 06/11/18 Cholecalciferol (Vitamin D3) [Vitamin D 1000 Iu Tab*] 1,000 unit PO DAILY #30 tab 06/11/18 Cyanocobalamin [Vitamin B-12*] 500 mcg PO DAILY #30 tab 06/11/18 Docusate/Senna [Senokot-S*] 2 tab PO BEDTIME #60 tab 06/11/18 Hydrocodone 5/APAP 325 [Armstrong 5/325*] 1 tab PO Q6H PRN #60 tab 06/11/18 Iron/FA/Vit B-Com W/C [Hemocyte Plus*] 1 tab PO DAILY WITH BREAKFAST #30 tab 06/11/18 Lidocaine 4% Patch [Lidoderm 5% Patch*] 1 patch TOP DAILY #30 patch 06/11/18 Meclizine HCl [Antivert*] 25 mg PO Q8H PRN #30 tab 06/11/18 Ondansetron [Zofran (Odt)*] 4 mg PO Q6H PRN #30 tab 06/11/18 Rivaroxaban [Xarelto] 10 mg PO DAILY 21 Days #21 tablet 06/11/18 traMADol HCL [Ultram*] 50 mg PO Q6H PRN #60 tab 06/11/18 - Past Medical/Surgical History Diabetic: Yes -: Diabetes mellitus type 2 -: Hyperlipidemia -: Renal cyst -: Tobacco abuse -: Herniated disk -: Chronic back pain -: GERD -: shingles -: Hysterectomy -: Breast augmentation -: -: nose surgery -: eye implant surgery L eye Psychosocial/ Personal History: The patient is . She has 2 children. 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 - Family History Family History: Reviewed- Non-Contributory - Family History Father Notes: "All family healthy" - Social History Smoking Status: Former smoker Alcohol use: No CD- Drugs: No Caffeine use: Yes Place of Residence: Home Review of Systems General: Unremarkable Eyes: Unremarkable ENT: Unremarkable Respiratory: Unremarkable Cardiovascular: Unremarkable Gastrointestinal: Nausea, Abdominal Pain, Constipation, As per HPI Genitourinary: Unremarkable Musculoskeletal: Unremarkable Integumentary: Unremarkable Neurological: Unremarkable Lymphatics: Unremarkable Physical Examination - Physical Exam General: Alert, In no apparent distress, Oriented x3, Cooperative HEENT: Atraumatic, Normocephalic, PERRLA, Mucous membr. moist/pink, EOMI, Sclerae nonicteric Neck: Supple, 2+ carotid pulse no bruit, JVD not distended, No Thyromegaly, No LAD Respiratory: Clear to auscultation bilaterally, Normal air movement Cardiovascular: No edema, Normal pulses, Regular rate/rhythm, Normal S1 S2, No gallops, No rubs, No murmurs Capillary refill: <2 Seconds Gastrointestinal: Normal bowel sounds, Soft and benign, No ascites, No masses, No rebound, No guarding, Tenderness Musculoskeletal: No clubbing, No swelling, No contractures, No erythema, No tenderness, No warmth Integumentary: No rashes, No breakdown, No significant lesion, No tenderness/swelling, No erythema, No warmth, No cyanosis Neurological: Normal speech, Normal strength at 5/5 x4 extr, Normal tone, Sensation intact, Cranial nerves 3-12 intact, Normal affect Lymphatics: No axilla or inguinal lymphadenopathy - Studies Laboratory Data (last 24 hrs) 03/21/21 19:30: PT 10.4, INR 0.91 03/21/21 19:30: WBC 5.00, Hgb 13.5, Hct 40.4, Plt Count 113 L 03/21/21 19:30: Sodium 138, Potassium 4.1, BUN 13, Creatinine 0.56, Glucose 161 H, Magnesium 2.4, Total Bilirubin 2.5 H, AST 130 H, ALT 358 H*, Alkaline Phosphatase 388 H, Lipase 199 Assessment and Plan - Plan Assessment Soft tissue mass at level of hepatic duct with associated hepatobiliary dilation Elevated liver enzymes T2DM HLD UTI Plan GI consulted NPO, SCDs continue IVF hydration, pain management as needed q6hr BG checks, sliding scale insulin when diet resumes IV ceftriaxone, urine microscopy and culture pending continue home meications Discharge Plan: Home Plan to discharge in: 72 Hours - Advance Directives Does patient have a Living Will: No Does patient have a Durable POA for Healthcare: No - Code Status/Comfort Care Code Status Assessed: Yes (full code) Critical Care: No Time Spent Managing Pts Care (In Minutes): 70
[2021-03-22 04:23] VITALS: BMI 22.8
[2021-03-22 05:42] LABS: Absolute Lymphocytes (CBC) 0.8 K/uL (0.7-4.9); Basophils % 1.3 % (0-1.3); Hematocrit 37.1 % (36.0-45.0); Lymphocytes % 21.6 % (15.3-44.8); MPV 8.2 fL (7.6-11.3); RBC Red Blood Cell Count 3.96 M/uL (3.86-4.86)
[2021-03-22 06:01] LABS: AST/SGOT 130 U/L (15-37); Albumin 3.4 g/dL (3.4-5.0); Alkaline Phosphatase 363 U/L (45-117); BUN Blood Urea Nitrogen 8 mg/dL (7-18); Bicarbonate 25 mmol/L (21-32); Glucose Level 152 mg/dL (74-106); Potassium 3.9 mmol/L (3.5-5.1); Protein, Total 6.7 g/dL (6.4-8.2); Sodium Level 141 mmol/L (136-145)
[2021-03-22 06:03] LABS: ALT/SGPT 301 U/L (12-78)
[2021-03-22] MEDS: INSULIN -REGULAR HUMAN 50 UNIT/0.5 ML ML SQ SCH ×3 (07:30→18:00)
--- NOTE | 2021-03-22 10:21 | RAD REPORT ---
EXAM DESCRIPTION: CT Abdomen and Pelvis With Intravenous Contrast CLINICAL HISTORY: The patient is 71 years old and is Female; ABD PAIN TECHNIQUE: Axial computed tomography images of the abdomen and pelvis with intravenous contrast. S agittal and coronal reformatted images were created and reviewed. This CT exam was performed using one or more of the following dose reduction techniques: automated exposure control, adjustment of t he mA and/or kV according to patient size, and/or use of iterative reconstruction technique. COMPARISON: No relevant prior studies available. FINDINGS: LUNG BASES: Unremarkable. No mass. No consolidation. ABDOMEN: LIVER: See below. GALLBLADDER AND BILE DUCTS: The gallbladder is contracted. Heterogeneous enhancing density withi n the common hepatic duct is present. Dilatation of intrahepatic biliary tree is present. Dilatatio n of the common bile duct measuring up to 0.8 cm is also present. PANCREAS: No ductal dilation. No mass. SPLEEN: Unremarkable. ADRENALS: Unremarkable. No mass. KIDNEYS AND URETERS: A large right renal cyst measuring 4.7 cm is present. The kidneys enhance symmetrically. There is no hydronephrosis or hydroureter of either kidney. STOMACH AND BOWEL: The stomach is distended with food contents and air. The small bowel is relat ively normal in caliber. A moderate amount of stool is present throughout colon. There is no mucosal thickening or evidence of bowel obstruction. PELVIS: APPENDIX: The appendix is normal in caliber without surrounding inflammation. BLADDER: The bladder is well distended. REPRODUCTIVE: The patient is status post hysterectomy. ABDOMEN and PELVIS: INTRAPERITONEAL SPACE: Unremarkable. No free air. No significant fluid collection. BONES/JOINTS: A right hip prosthesis is present. There is no acute fracture. SOFT TISSUES: Bilateral breast implants are partially visualized. VASCULATURE: Unremarkable. No abdominal aortic aneurysm. LYMPH NODES: Unremarkable. No enlarged lymph nodes. IMPRESSION: Findings concerning for enhancing soft tissue mass at the level of the common hepatic du ct with associated intrahepatic biliary dilatation. Further evaluation with MRCP is recommended. Electronically signed by: Christina Light MD 03/21/2021 9:50 PM CDT Due to temporary technical issues with the PACS/Fluency reporting system, reports are being signed by the in house radiologist without review as a courtesy to ensure prompt reporting. The interpreting r adiologist is fully responsible for the content of the report.
--- NOTE | 2021-03-22 11:55 | EKG ---
Test Date: 2021-03-21 Test Time: 22:21:14 Marketing Development Representative: KATHIE MEASUREMENT RESULTS: Intervals: Rate: 70 AR: 208 QRSD: 80 QT: 438 QTc: 473 [place]: P: 62 AR: 208 QRS: 36 T: 54 INTERPRETIVE STATEMENTS: Normal sinus rhythm Normal ECG Compared to ECG 03/16/2019 20:24:03 Myocardial infarct finding no longer present Electronically Signed On 03-22-21 11:53:37 CDT by Dennis Tovar
[2021-03-22] MEDS ORDERED: MORPHINE 2 MG/ML SYR ONE (12:49)
[2021-03-22] MEDS: MORPHINE 2 MG/ML SYR IV PRN (12:52)
--- NOTE | 2021-03-22 20:20 | P.PN ---
Date of Service: 03/22/21 Patient seen and examined. She is complaining of right upper quadrant pain. Case discussed with Dr. Mccann who recommended ERCP with spy glass which is not available here. Dr. Mccann recommend transfer to tertiary center for further evaluation and management. I called [facility], spoke to Dr. Bell-KING and Dr. Moreno-Hospitalist. Patient has been accepted for transfer. Awaiting bed availability. Continue antibiotics. Supportive measures with IV opiates p.r.n. for pain. Monitor LFT.
[2021-03-22] MEDS: CEFTRIAXONE/SWI 1gm 1 GM/10 ML SYR IVP SCH (20:43)
[2021-03-22] MEDS: MELATONIN 5 MG TABLET PO PRN (20:43)
[2021-03-22] MEDS ORDERED: CEFTRIAXONE 1 GM/NS 50 ML 1 GM/50 ML BAG IV SCH (21:00)
[2021-03-23] MEDS: NA CHLORIDE 0.9% 1,000 ML IV SCH ×2 (01:21→08:00)
[2021-03-23 04:26] LABS: ALT/SGPT 269 U/L (12-78); Albumin 3.5 g/dL (3.4-5.0); Alkaline Phosphatase 352 U/L (45-117); BUN Blood Urea Nitrogen 11 mg/dL (7-18); Bicarbonate 24 mmol/L (21-32); Glucose Level 112 mg/dL (74-106); HDL Cholesterol 19 mg/dL (40-60); LDL Cholesterol, Calculated 269 (<130); Protein, Total 7.1 g/dL (6.4-8.2); Sodium Level 140 mmol/L (136-145)
[2021-03-23 04:30] LABS: Absolute Lymphocytes (CBC) 1.1 K/uL (0.7-4.9); Basophils % 1.7 % (0-1.3); Hematocrit 36.6 % (36.0-45.0); Lymphocytes % 23.8 % (15.3-44.8); MPV 9.4 fL (7.6-11.3)
[2021-03-23 04:40] LABS: AST/SGOT 117 U/L (15-37); Potassium 4.2 mmol/L (3.5-5.1)
[2021-03-23 04:41] LABS: Bilirubin Total 5.9 mg/dL (0.2-1.0)
[2021-03-23 05:04] LABS: Blood Morphology Comment NOT SEEN (NOT SEEN); Platelet Estimate ADEQ; White Blood Cell Scan OK (OK)
[2021-03-23] MEDS: INSULIN -REGULAR HUMAN 50 UNIT/0.5 ML ML SQ SCH ×5 (06:00→20:08)
[2021-03-23] MEDS: D5 0.45 NS 1,000 ML IV SCH ×2 (10:46→20:09)
--- NOTE | 2021-03-23 14:23 | P.PN ---
Subjective Date of Service: 03/23/21 Primary Care Provider: Pierre Chief Complaint: abdominal pain Patient complaining of right upper quadrant pain. She states she is hungry and requested to eat. Total bilirubin level trended up. Physical Examination - Vital Signs Temperature: 97.6 F Blood Pressure: 148/70 Pulse: 62 Respirations: 15 Pulse Ox (%): 98 - Physical Exam General: Alert, In no apparent distress, Oriented x3 HEENT: Atraumatic, Normocephalic, Scleral icterus Neck: JVD not distended Respiratory: Clear to auscultation bilaterally, Normal air movement Cardiovascular: No edema, Regular rate/rhythm, Normal S1 S2 Gastrointestinal: Soft and benign, Non-distended, Tenderness (Right upper quadrant) Musculoskeletal: No swelling, No tenderness Integumentary: No rashes, No erythema, Other (Jaundiced skin) Neurological: Normal strength at 5/5 x4 extr, Cranial nerves 3-12 intact - Studies Microbiology Data (last 24 hrs): 03/21/21 20:57 Clean Catch Urine [place] Count - Final <10,000 CFU/ML. 03/21/21 20:57 Clean Catch Urine - Final MIXED AJAY. Assessment And Plan - Current Problems (Diagnosis) (1) Hyperbilirubinemia Current Visit: Yes Status: Acute (2) Liver lesion Current Visit: Yes Status: Acute (3) Biliary obstruction Current Visit: Yes Status: Acute (4) History of cervical cancer Current Visit: Yes Status: Acute (5) Elevated LFTs Current Visit: Yes Status: Acute - Plan Case discussed with Dr. Mccann. He recommended transfer to [facility] for ERCP with spyglass. Patient accepted for transfer, awaiting bed to be available. Continue supportive measures IV hydration Pain management with IV opioid as needed. Empiric IV Rocephin. Follow urine culture. Monitor LFT. Clear liquid diet for now.
[2021-03-23] MEDS: MORPHINE 2 MG/ML SYR IV PRN (20:09)
[2021-03-23] MEDS: CEFTRIAXONE/SWI 1gm 1 GM/10 ML SYR IVP SCH (20:09)
[2021-03-23] MEDS: ONDANSETRON 4 MG/2 ML VIAL IV PRN (20:10)
[2021-03-24 04:29] LABS: Basophils % 1.1 % (0-1.3); Hematocrit 37.8 % (36.0-45.0); Lymphocytes % 23.6 % (15.3-44.8); MPV 8.4 fL (7.6-11.3); RBC Red Blood Cell Count 4.01 M/uL (3.86-4.86)
[2021-03-24 04:43] LABS: ALT/SGPT 251 U/L (12-78); AST/SGOT 121 U/L (15-37); Albumin 3.3 g/dL (3.4-5.0); Alkaline Phosphatase 344 U/L (45-117); BUN Blood Urea Nitrogen 8 mg/dL (7-18); Bicarbonate 28 mmol/L (21-32); Glucose Level 155 mg/dL (74-106); Protein, Total 6.9 g/dL (6.4-8.2); Sodium Level 141 mmol/L (136-145)
[2021-03-24] MEDS: MORPHINE 2 MG/ML SYR IV PRN ×4 (05:10→19:36)
[2021-03-24] MEDS: ONDANSETRON 4 MG/2 ML VIAL IV PRN (05:11)
[2021-03-24] MEDS: INSULIN -REGULAR HUMAN 50 UNIT/0.5 ML ML SQ SCH ×4 (07:30→20:05)
[2021-03-24 13:46] VITALS: O2SAT 95
[2021-03-24] MEDS: D5 0.45 NS 1,000 ML IV SCH (14:18)
--- NOTE | 2021-03-24 19:30 | P.PN ---
Subjective Date of Service: 03/24/21 Primary Care Provider: Pierre Chief Complaint: abdominal pain Patient complaining of right upper quadrant pain. Total bilirubin level plateaued. Physical Examination - Vital Signs Temperature: 97.3 F Blood Pressure: 125/67 Pulse: 56 Respirations: 18 Pulse Ox (%): 99 - Physical Exam General: Alert, In no apparent distress, Oriented x3 HEENT: Mucous membr. moist/pink Neck: JVD not distended Respiratory: Clear to auscultation bilaterally, Normal air movement Cardiovascular: No edema, Regular rate/rhythm, Normal S1 S2 Gastrointestinal: Soft and benign, Non-distended, Tenderness (Right upper quadrant.) Musculoskeletal: No swelling, No tenderness Integumentary: No rashes, No erythema Neurological: Normal strength at 5/5 x4 extr Lymphatics: No axilla or inguinal lymphadenopathy Assessment And Plan - Current Problems (Diagnosis) (1) Hyperbilirubinemia Current Visit: Yes Status: Acute (2) Liver lesion Current Visit: Yes Status: Acute (3) Biliary obstruction Current Visit: Yes Status: Acute (4) History of cervical cancer Current Visit: Yes Status: Acute (5) Elevated LFTs Current Visit: Yes Status: Acute - Plan Dr. Mccann recommend transfer to tertiary center for ERCP with spyglass. Patient accepted for transfer to [facility], awaiting bed to be available. Continue supportive measures IV hydration Pain management with IV opioid as needed. Empiric IV Rocephin. Monitor LFT. Urine culture: Mixed liz Clear liquid diet for now. Also initiated transferred to [facility] and [facility]. I explored the option of patient being transferred for the procedure and then come back to continue inpatient management if there is no bed available but GI at [facility] Dr. Rodriguez recommend inpatient monitoring at [facility] for at least 48 hrs after the procedure.
[2021-03-24] MEDS: MELATONIN 5 MG TABLET PO PRN (19:36)
[2021-03-24] MEDS: CEFTRIAXONE/SWI 1gm 1 GM/10 ML SYR IVP SCH (20:05)
[2021-03-24] MEDS ORDERED: ENSURE CLEAR 200 ML CAN PO SCH (21:00)
[2021-03-24 21:01] VITALS: BP 131/61; TEMP 97.4
--- NOTE | 2021-03-25 17:23 | P.DS ---
Admission Date: 03/22/21 Discharge Date: 03/24/21 Primary Care Provider: Pierre Disposition: TRANSFER TO [facility] Discharge Condition: GOOD Reason for Admission: abdominal pain - Problems (1) Hyperbilirubinemia Status: Acute (2) Liver lesion Status: Acute (3) Biliary obstruction Status: Acute (4) History of cervical cancer Status: Acute (5) Elevated LFTs Status: Acute Brief History of Present Illness: 71-year-old woman with a history of type 2 diabetes, hyperlipidemia, history of cervical cancer presented to the emergency department with a complaint of abdominal pain of a few months duration. Patient describes severe right upper quadrant pain, associated weight loss, anorexia dizziness nausea constipation pruritus and dark urine. Patient was a smoker and quit smoking a few months prior. CT scan done in the emergency department demonstrated soft tissue mass at the level of common hepatic duct with associated intrahepatic biliary dilatation. Her total bilirubin elevated to 2.5. Patient hospitalized for further management. Hospital Course: Patient admitted to the medical floor and put on supportive measures including IV hydration. Her bilirubin trended up. GI was consulted, I had a discussion with Dr. Mccann who recommended ERCP with spyglass which is not available here in this hospital. Dr. Mccann therefore recommended transfer to a tertiary center. Transfer was initiated to [facility], [facility], and [facility]. Patient was eventually accepted for transfer [facility] for further management. Vital Signs/Physical Exam: Temp Pulse Resp BP Pulse Ox 97.4 F 53 16 131/61 95 03/24/21 20:00 03/24/21 20:00 03/24/21 20:00 03/24/21 20:00 03/24/21 20:00 General: Alert, In no apparent distress, Oriented x3 HEENT: Mucous membr. moist/pink, Scleral icterus Neck: Supple, JVD not distended Respiratory: Clear to auscultation bilaterally, Normal air movement Cardiovascular: No edema, Regular rate/rhythm, Normal S1 S2 Gastrointestinal: Soft and benign, Non-distended, Tenderness (Right upper quadrant) Musculoskeletal: No swelling Integumentary: No rashes Neurological: Normal strength at 5/5 x4 extr Laboratory Data at Discharge: WBC 4.10 K/uL (4.3-10.9) L 03/24/21 04:11 Hgb 12.9 g/dL (12.0-15.0) 03/24/21 04:11 Hct 37.8 % (36.0-45.0) 03/24/21 04:11 Plt Count 278 K/uL (152-406) D 03/24/21 04:11 PT 10.4 SECONDS (9.5-12.5) 03/21/21 19:30 INR 0.91 03/21/21 19:30 Sodium 141 mmol/L (136-145) 03/24/21 04:11 Potassium 4.0 mmol/L (3.5-5.1) 03/24/21 04:11 BUN 8 mg/dL (7-18) 03/24/21 04:11 Creatinine 0.55 mg/dL (0.55-1.3) 03/24/21 04:11 Glucose 155 mg/dL (74-106) H 03/24/21 04:11 Phosphorus 3.0 mg/dL (2.5-4.9) 03/23/21 03:03 Magnesium 2.0 mg/dL (1.8-2.4) 03/23/21 03:03 Total Bilirubin 5.0 mg/dL (0.2-1.0) H 03/24/21 04:11 AST 121 U/L (15-37) H 03/24/21 04:11 ALT 251 U/L (12-78) H 03/24/21 04:11 Alkaline Phosphatase 344 U/L (45-117) H 03/24/21 04:11 Triglycerides 234 mg/dL (<150) H 03/23/21 03:03 Cholesterol 335 mg/dL (<200) H 03/23/21 03:03 HDL Cholesterol 19 mg/dL (40-60) L 03/23/21 03:03 Cholesterol/HDL Ratio 17.63 03/23/21 03:03 Lipase 199 U/L (73-393) 03/21/21 19:30 Home Medications: Albuterol Sulfate [Albuterol Sulfate Hfa] 2 puff IH Q4H PRN 03/22/21 Ascorbic Acid [Vitamin C] 1 tab PO DAILY 03/22/21 Aspirin [Aspirin EC] 1 tab PO DAILY 03/22/21 Cholecalciferol (Vitamin D3) [Vitamin D3] 1 tab PO DAILY 03/22/21 Cyanocobalamin [Vitamin B-12*] 2,500 mcg PO DAILY 03/22/21 Docusate Sodium [Dss] 100 mg PO DAILY 03/22/21 Fluticasone Propionate [Flovent Diskus] 1 puff IH BID 03/22/21 Lactulose 15 ml PO DAILY 03/22/21 Magnesium [Magnesium Gluconate] 400 mg PO DAILY 03/22/21 Metformin ER [Glucophage ER*] 2 tab PO BID 03/22/21 Omeprazole 2 tab PO DAILY 03/22/21 Pravastatin [Pravachol*] 1 tab PO DAILY 03/22/21 Trazodone [Desyrel*] 1 tab PO BEDTIME 03/22/21 Followup: Chet Jay MD [Primary Care Provider] - Time spent managing pt's care (in minutes): 40
== END 2021-03-24 22:50 | disposition short-term general hospital (02) | DRG 446 ==
LOC: ER 15:53 → ERHOLD 03-22 02:21 → 4TH 03-22 15:23
PROVIDERS: ADMIT Internal Medicine; ATTEND Internal Medicine
DX: K83.1 Obstruction of bile duct (principal); E80.6 Other disorders of bilirubin metabolism; K76.9 Liver disease, unspecified; E11.9 Type 2 diabetes mellitus without complications; R79.89 Other specified abnormal findings of blood chemistry; Z85.41 Personal history of malignant neoplasm of cervix uteri; Z87.891 Personal history of nicotine dependence; Z20.822 Contact with and (suspected) exposure to COVID-19
CPT/HCPCS: 36415; 71045; 74177; 76705; 80048; 80053; 80061; 80076; 81003; 82140; 82947; 83690; 83735; 83880; 84100; 84484; 85025; 85610; 87086; 87088; 93005; 94760; 96374; 96375; 99285; J0696; J2270; J2405; J3010; J7030; J7799; Q9967; U0003

== ENCOUNTER 2021-09-22 00:52 | Emergency (ER) | payer OTHER ==
--- OUTSIDE RECORDS SUMMARY | 2021-09-22 01:11 | XMS REPORT | Clinical Summary ---
:1950 Author Organization [facility] MD Cesar [facility] Address [address] [place] [address] Care Team Providers Name Role Phone MD Pierre Unavailable MD Antwan Primary Care Provider Allergies No known active allergies Medications Medication Sig Dispensed Refills Start End Status Date Date cholecalciferol, Take 1,000 Units 0 Active vitamin D3, (VITAMIN by mouth daily. D3) 4,000 units tab tablet pravastatin Take 40 mg by 0 Acti ve (PRAVACHOL) 40 mg mouth daily. tabletIndications: hyperlipidemia ascorbic acid, Take 1,000 mg by 0 Active vitamin C, (vitamin mouth daily. C) 1000 mg tablet simethicone (MYLICON) Chew 1 tablet 50 tablet 0 05/23/20 Active 80 mg chewable (80 mg) every 4 21 tabletIndications: (four) hours as Obstruction of needed for biliary tree flatulence. lidocaine-prilocaine As needed for 30 g 5 06/02/20 Active (EMLA) 2.5-2.5% the port 21 creamIndications: Primary adenocarcinoma of common bile duct lactulose (CHRONULAC) Take 15 mL (10 480 mL 0 06/09/20 Active 10 gram/15 mL g) by mouth 2 21 solutionIndications: (two) times a Slow transit day as needed constipation for constipation (2nd choice for constipation). 2nd choice for constipation OLANZapine (ZyPREXA) Take 1 tablet 30 tablet 0 08/02/20 Active 2.5 mg (2.5 mg) by 21 tabletIndications: mouth at Insomnia due to bedtime. medical condition morphine (MS CONTIN) Take 1 tablet 60 tablet 0 08/26/20 Active 15 mg ER (15 mg) by mouth 21 tabletIndications: every 12 Neoplasm related pain (twelve) hours. (acute) (chronic) calcium carbonate Take by mouth. 0 Active (MAALOX RS ORAL) dexamethasone Take 1 tablet (4 30 tablet 0 09/07/20 Active (DECADRON) 4 mg mg) by mouth tabletIndications: daily with Cholangiocarcinoma, breakfast. Malignant neoplasm related fatigue SITagliptin (JANUVIA) Take 50 mg by 0 Active 50 mg tablet mouth daily. omeprazole (PriLOSEC) Take 40 mg by 0 Active 40 MG capsule mouth every morning before breakfast. loperamide (IMODIUM) Take 1 capsule 120 capsule 0 09/19/20 Active 2 mg (2 mg) by mouth capsuleIndications: every 4 (four) Colitis hours as needed for diarrhea. ciprofloxacin HCl Take 1 tablet 12 tablet 0 09/19/2009/25/ Active (Cipro) 500 mg (500 mg) by 2020 tabletIndications: mouth every 12 Colitis (twelve) hours for 6 days. metroNIDAZOLE Take 1 tablet 18 tablet 0 09/19/2009/25/ Ac tive (FLAGYL) 500 mg (500 mg) by 2020 tabletIndications: mouth every 8 Colitis (eight) hours for 6 days. zinc sulfate Take 1 capsule 60 capsule 0 09/19/20 A ctive (ZINCATE) 220 mg (220 mg) by capsuleIndications: mouth twice Taste problem daily. pantoprazole Take 1 tablet 30 tablet 0 09/20/20 Act solo (PROTONIX) 40 mg EC (40 mg) by mouth 21 tabletIndications: daily. Gastro-esophageal reflux disease without esophagitis, not otherwise specified aspirin 81 mg EC Take 81 mg by 0 // Discontinued tablet mouth daily. 2020 (Reorde r) HYDROcodone-acetamino Take 1 tablet by 0 0 05/23/ Discontinued phen (NORCO) 7.5 mouth every 6 2020 (Stop Taking mg-325 mg per (six) hours as a t Discharge) tabletIndications: needed for pain moderate pain. lactulose (CHRONULAC) Take 15 mL by 0 08/ 0/ Discontinued 10 gram/15 mL mouth 2 (two) 2020 (R eorder) solution times a day as needed for constipation. metFORMIN Take 500 mg by 0 05/23/ Disco ntinued (GLUCOPHAGE) 500 mg mouth daily with (Stop Taking tabletIndications: breakfast. at Discharge) type 2 diabetes mellitus omeprazole (PriLOSEC) Take 40 mg by 0 05/22 0/ Discontinued 40 MG mouth every 2020 (Stop Ta selena capsuleIndications: morning before at Discharge) gastroesophageal breakfast. reflux disease senna-docusate Take 1 tablet by 0 05/23/ Discontinued (sennosides-docusate mouth twice 2020 (Stop Taking sodium) 8.6 mg-50 mg daily. at Discharge) tabletIndications: constipation docusate sodium Take 100 mg by 0 05/23/ Discontinued (COLACE) 100 mg mouth daily. 2020 ( Stop Taking capsuleIndications: at Discharge) constipation ursodiol (ACTIGALL) Take 300 mg by 0 06/21 / Discontinued 300 mg mouth twice 2020 (Stop Ta selena capsuleIndications: daily. at Discharge) primary biliary cholangitis ondansetron (Zofran Dissolve 1 30 tablet 0 05/04/2006/09/ Discontinued ODT) 8 mg tablet (8 mg) on 2020 (Re order) disintegrating the tongue every tabletIndications: 8 (eight) hours Nausea as needed for nausea or vomiting. OLANZapine (ZyPREXA) Take 1 tablet 15 tablet 0 05/04/2007/27 / Discontinued 2.5 mg (2.5 mg) by 2020 tabletIndications: mouth every 6 Nausea (six) hours as needed (nausea/sleep). aluminum-magnesium Take 15 mL by 150 mL 0 05/04/2006/09/ Discontinued hydroxide-simethicone mouth every 4 2020 (Stop Taking (MAALOX PLUS) 200 (four) hours as at Discharge) mg-200 mg-20 mg/5 mL needed for suspensionIndications indigestion or : Nausea heartburn. HYDROcodone-acetamino Take 1 tablet by 60 tablet 0 05/04/20 0 06/21/ Discontinued phen (NORCO) 10 mouth every 6 2020 (Stop Taking mg-325 mg per (six) hours as a t Discharge) tabletIndications: needed for Cancer associated moderate pain. pain OLANZapine (ZyPREXA) Take 1 tablet 30 tablet 0 05/17/2006/13 / Discontinued 2.5 mg (2.5 mg) by 2020 (Reorder ) tabletIndications: mouth at Anxiety state, Nausea bedtime. alone metoclopramide Take 1 tablet (5 90 tablet 0 05/17/2006/09/ Discontinued (REGLAN) 5 mg mg) by mouth 3 2020 ( Reorder) tabletIndications: (three) times a Nausea alone day before meals. aspirin 81 mg EC Take 1 tablet 30 tablet 0 05/23/2008/21/ Discontinued tabletIndications: (81 mg) by mouth 2020 (Error) Obstruction of daily. biliary tree pantoprazole Take 1 tablet 60 tablet 0 05/24/2006/09/ Dis continued (PROTONIX) 40 mg EC (40 mg) by mouth (Reorder) tabletIndications: daily. Obstruction of biliary tree senna (SENOKOT) 8.6 Take 2 tablets 60 tablet 0 05/23/2006/09 / Discontinued mg tabletIndications: by mouth twice (Reorder) Obstruction of daily. biliary tree amoxicillin-clavulana Take 1 tablet 20 tablet 0 05/23/20 08/ 0/ Discontinued te (Augmentin) 875 (875 mg) by 2020 (Stop Taking mg-125 mg per mouth twice at D ischarge) tabletIndications: daily. Obstruction of biliary tree metroNIDAZOLE Take 1 tablet 30 tablet 0 05/23/2006/09/ Di scontinued (FlagyL) 500 mg (500 mg) by 2020 (S top Taking tabletIndications: mouth 3 (three) at Discharge) Obstruction of times a day. biliary tree empagliflozin-linagli Take 10 mg by 0 08/21 1/ Discontinued ptin (Glyxambi) 10-5 mouth daily. 2020 (Not mg tab Applicable ) amoxicillin (AMOXIL) Take 500 mg by 0 05/21 6/ Discontinued 500 mg capsule mouth 3 (three) 2020 (Therapy times a day. complet ed) lidocaine-prilocaine As needed for 30 g 5 05/31/2006/02 / Discontinued (EMLA) 2.5-2.5% the port 2020 (Reo rder) creamIndications: Primary adenocarcinoma of common bile duct linaGLIPtin Take 1 tablet by 0 05/25/2006/16/ D iscontinued (Tradjenta) 5 mg tab mouth daily as 2020 (Error) needed. megestrol (Megace ES) Take 5 mL (625 150 mL 5 06/05/20/ Discontinued 625 mg/5 mL (125 mg) by mouth 2020 (Stop Taking mg/mL) daily. at Dischar ge) suspensionIndications : Cholangiocarcinoma, Appetite symptom metoclopramide Take 1 tablet (5 90 tablet 0 06/09/2007/07/ Discontinued (REGLAN) 5 mg mg) by mouth 3 2020 ( Stop Taking tabletIndications: (three) times a at Discharge) Nausea alone day as needed for nausea and vomiting (2nd choice for nausea/vomiting) . Take 30 mins before meals as needed ondansetron (Zofran Dissolve 1 30 tablet 0 06/09/2009/04/ Discontinued ODT) 8 mg tablet (8 mg) on 2020 (Ot her ) disintegrating the tongue every tabletIndications: 8 (eight) hours Nausea as needed for nausea or vomiting (first choice for nausea and vomiting). senna (SENOKOT) 8.6 Take 2 tablets 60 tablet 0 06/09/2009/19 / Discontinued mg tabletIndications: by mouth twice (Stop Taking Obstruction of daily. First a t Discharge) biliary tree choice for constipation zinc sulfate Take 1 capsule 5 capsule 0 06/10/2006/16/ Di scontinued (ZINCATE) 220 mg (220 mg) by 2020 ( Stop Taking capsuleIndications: mouth daily for at Discharge) Taste sense altered 5 days. pantoprazole Take 1 tablet 60 tablet 0 06/09/2007/27/ Dis continued (PROTONIX) 40 mg EC (40 mg) by mouth tabletIndications: daily with Obstruction of breakfast. biliary tree mirtazapine (REMERON) Take 1 tablet 30 tablet 0 06/09/20 09/0 1/ Discontinued 7.5 mg (7.5 mg) by 2020 (Stop Ta selena tabletIndications: mouth daily. at Discharge) Failure to thrive OLANZapine (ZyPREXA) Take 1 tablet 30 tablet 0 06/13/2006/15 / Discontinued 2.5 mg (2.5 mg) by 2020 (Reorder ) tabletIndications: mouth at Anxiety state, Nausea bedtime. alone OLANZapine (ZyPREXA) Take 1 tablet 90 tablet 0 06/15/2007/27 / Discontinued 2.5 mg (2.5 mg) by 2020 tabletIndications: mouth at Anxiety state, Nausea bedtime. alone HYDROmorphone Take 1 tablet (2 90 tablet 0 06/21/2007/07/ Discontinued (DILAUDID) 2 mg mg) by mouth 2020 ( Stop Taking tabletIndications: every 4 (four) at Discharge) Cancer associated hours as needed pain for moderate pain or severe pain. morphine (MS CONTIN) Take 1 tablet 60 tablet 0 06/21/2006/21 / Discontinued 15 mg ER (15 mg) by mouth 2020 (Re order) tabletIndications: every 12 Cancer associated (twelve) hours pain for 30 days. mirtazapine (REMERON) Take 1 tablet 30 tablet 0 06/21/20 1/ Discontinued 7.5 mg (7.5 mg) by 2020 (Stop Ta selena tabletIndications: mouth at bedtime at Discharge) Anorexia for 30 days. levoFLOXacin Take 1 tablet 1 tablet 0 06/22/2007/07/ Dis continued (LEVAQUIN) 750 mg (750 mg) by 2020 (Stop Taking tabletIndications: mouth daily for at Discharge) Chills 1 dose. melatonin 10 mg Take 1 tablet 30 tablet 0 06/21/2007/21/ tabletIndications: (10 mg) by mouth 2020 Cholangiocarcinoma nightly as needed (for sleep) for up to 30 days. polyethylene glycol Fill powder to 476 g 0 06/21/2007/21 / (GLYCOLAX) 17 top of white 2020 gram/dose section in cap powderIndications: which is marked Cholangiocarcinoma to indicate the correct dose (17g) stir and dissolve in any 8 ounces of beverage (cold, hot or room temperature) then drink solution daily as needed for constipation. sucralfate (CARAFATE) Take 5 mL (500 420 mL 0 06/21/20/ Discontinued 100 mg/mL mg) by mouth 4 2020 (Stop Taking suspensionIndications (four) times a at Discharge) : Cholangiocarcinoma day. morphine (MS CONTIN) Take 1 tablet 60 tablet 0 06/21/2007/07 / Discontinued 15 mg ER (15 mg) by mouth 2020 (St op Taking tabletIndications: every 12 a t Discharge) Cancer associated (twelve) hours pain for 30 days. HYDROmorphone Take 1 tablet (4 0 07/06/2008/26/ Discontinued (DILAUDID) 4 mg mg) by mouth 2020 ( Reorder) tabletIndications: every 4 (four) Cancer associated hours as needed pain for moderate pain or severe pain. morphine (MS CONTIN) Take 1 tablet 60 tablet 0 07/06/2007/21 / Discontinued 30 mg 12 hr (30 mg) by mouth 2020 ( Stop Taking tabletIndications: every 12 a t Discharge) Cancer associated (twelve) hours. pain metoclopramide Take 1 tablet 90 tablet 0 07/07/2007/27/ D iscontinued (REGLAN) 10 mg (10 mg) by mouth 2020 tabletIndications: 3 (three) times Nausea and vomiting a day before meals for 30 days. omeprazole (PriLOSEC) Take 40 mg by 0 08/21 8/ Discontinued 40 MG capsule mouth every 2020 (Not morning before Appli cable) breakfast. amoxicillin-clavulana Take 1 tablet 7 tablet 0 07/21/20 10 5/ te (AUGMENTIN) 875 (875 mg) by 2020 mg-125 mg per mouth every 12 tabletIndications: (twelve) hours Cholangitis for 7 doses. morphine (MS CONTIN) Take 1 tablet 45 tablet 0 07/21/2008/26 / Discontinued 15 mg ER (15 mg) by mouth 2020 (Re order) tabletIndications: every 12 Neoplasm related pain (twelve) hours. (acute) (chronic) dronabinol (Marinol) Take 1 capsule 30 capsule 0 07/27/20/ Discontinued 2.5 mg (2.5 mg) by 2020 (Stop Ta selena capsuleIndications: mouth daily. at Discharge) Cholangiocarcinoma ciprofloxacin HCl Take 1 tablet 14 tablet 0 08/10/2008/21/ Discontinued (Cipro) 500 mg (500 mg) by 2020 (Er ror) tabletIndications: mouth twice Cholangiocarcinoma daily. metroNIDAZOLE Take 1 tablet 21 tablet 0 08/10/2008/21/ Di scontinued (FlagyL) 500 mg (500 mg) by 2020 (E rror) tabletIndications: mouth 3 (three) Cholangiocarcinoma times a day. UNABLE TO FIND 2.5 mg. Med 0 scontinued Name: Ozanzapine 2020 (St op Taking at [facility]) ceFEPime (MAXIPIME) Infuse 6,000 mg 6 g 0 08/26/2008/21 2/ IV prescription (Home intravenously 2020 Use)Indications: infuse over 24 Cholangitis hours for 6 days. HYDROmorphone Take 1 tablet (4 30 tablet 0 08/26/2009/04/ Discontinued (DILAUDID) 4 mg mg) by mouth 2020 ( Other ) tabletIndications: every 4 (four) Cancer associated hours as needed pain for moderate pain or severe pain. empagliflozin Take 1 tablet by 0 09/19/ Discontinued (Jardiance) 10 mg tab mouth daily. 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 Paresthesia 05/02/2021 Anemia in malignant neoplastic disease 05/02/2021 Type 2 diabetes mellitus with hyperglycemia 05/02/2021 Severe protein-calorie malnutrition 05/02/2021 Back pain 05/02/2021 Cancer associated pain 05/02/2021 Primary adenocarcinoma of common bile duct 04/04/2021 Adjustment disorder with mixed anxiety and depressed m ood Anorexia Abdominal pain, right upper quadrant Resolved Problems Problem Noted Date Resolved Date Migration of percutaneous transhepatic biliary drain 021 05/20/2021 catheter Acute kidney failure 05/02/2021 05/23/2021 Encounters Date Type Specialty Care Team Description 09/21/20 Infusion Infusion Services Ericka, Obstructio n of biliary tree (Primary Dx); 21 Vy E, Cholangiocarcin linda PA 09/21/20 Ancillary Radiology Ericka, Acute ankle evangelina n <Right 21 Procedure Vy E, side> PA 09/21/20 Ancillary Radiology Ericka, Acute ankle evangelina n <Right 21 Procedure Vy E, side> PA 09/21/20 Telephone Gastrointestinal Pankaj 21 Medical Oncology Shayna Ward RN 09/21/20 Orders Only Gastrointestinal Ericka, 21 Medical Oncology Vy Hoyt, PA 09/21/20 Orders Only Gastrointestinal Antwan, 21 Medical Oncology MD Dahlia 09/21/20 Travel 21 09/21/20 Telephone Oncology Valentin, 21 Marta Allen MA 09/20/20 POEM Appointments Anesthesiology Sabrina, Canceled (Schedule/Template 21 ALFREDO Brown Changed) 09/20/20 Telephone Gastrointestinal Vicky Esquivel Medical Oncology Michelle Allen RN 09/20/20 Orders Only Gastrointestinal Ericka, Acute ankle pain <Right 21 Medical Oncology Vy E, side> (Prim ester Dx) PA 09/19/20 Nurse Only GIM/Phase 1 Malcolm Zhong 21 M, RN 09/17/20 [facility] GIM/Phase 1 Provider, Colitis (Primar y Dx); 21 - Encounter [facility] Hyponatremia; 09/19/20 Odiari, Cholangiocarcin linda; 21 Ebelechukwu, Intractable abd ominal pain; Gastro-esophageal reflux disease without esophagitis, not otherwise specified; Tanner-L Taste problem Benito mon MD Mouabbi, Jason A, MD Leal Alviarez, Daniel J, MD 09/17/20 Travel 09/17/20 Nurse Ruth Dowling 21 Lalit, RN 09/13/20 Infusion Infusion Services Antwan, Cholangioc arcinoma (Primary 21 MD Dahlia Dx) 09/13/20 Orders Only Gastrointestinal Antwan, Vicky Medical Oncology MD Dahlia 09/13/20 Orders Only Gastrointestinal Ericka, 21 Medical Oncology Vy Hoyt, PA 09/13/20 Travel 21 09/12/20 Telephone Nutrition Vicky Cuadra RD 09/12/20 Telephone Dermatology Vicky Wilcox RN 09/11/20 Telemedicine Gastrointestinal Antwan, Cholangioca rcinoma; 21 Medical Oncology MD Dahlia Obstruction of biliary tree 09/07/20 Infusion Infusion Services Ericka, Obstructio n of biliary tree (Primary Dx); 21 Vy Hoyt, Cholangiocarcin linda ALFREDO 09/07/20 Office Visit Gastrointestinal Antwan, Malignant n eoplasm related fatigue (Primary Dx); 21 Medical Oncology MD Dahlia Cholangioca rcinoma; Obstruction of biliary tree 09/07/20 Travel 09/04/20 Follow-Up Infectious Diseases [place], Cholangi tis 21 PARVEZ Brooks Shannon, PA 09/04/20 Travel 08/31/20 Infusion Infusion Services Cholangioc arcinoma (Primary 21 Dx) 08/31/20 Office Visit Gastrointestinal Antwan, Cholangioca rcinoma (Primary Dx); 21 Medical Oncology MD Dahlia Obstruction of biliary tree 08/31/20 Travel 08/29/20 Orders Only Radiology Brian, 21 ALFREDO Olivarez 08/28/20 Telephone Gastrointestinal Alvin, 21 Medical Oncology Michelle Allen RN 08/28/20 Telephone Ashley, Discharge Call 21 SOLANGE Mccormick 08/27/20 Telephone Colorectal Medicine Connie, 21 MD Rain 08/27/20 Nurse Triage Chintan Kovacs, 21 Nilda Calles RN 08/24/20 Orders Only Infectious Diseases [place], Cholangi tis (Primary Dx) 21 PARVEZ Brooks 08/22/20 Anesthesia Event Radiology Zandra Sharpe, 21 Roman Cooper CRNA 08/20/20 Travel 08/19/20 [facility] Thoracic Surgery Muir, Obstruction of biliary tree (Primary Dx); 21 - Encounter MD Jonathan Cholangitis; 08/26/20 Juanjo Johnson, Cholangiocarcin linda; 21 Cancer associated pain; Patsy, Primary adenoca rcinoma of common bile duct; Makayla Neoplasm relate d pain (acute) (chronic) MD Brendan Lorenzo Maria, MD 08/19/20 Travel 08/19/20 Nurse Triage Myla, 21 Nilda Calles RN 08/18/20 Infusion Infusion Services Cholangioc arcinoma (Primary 21 Dx) 08/18/20 Documentation Physical Therapy Taya, 21 Neelima, PT 08/18/20 Orders Only Gastrointestinal Ericka, Cholangioca rcinoma (Primary 21 Medical Oncology Vy E, Dx) PA 08/18/20 Travel 21 08/17/20 Telemedicine Gastrointestinal Antwan, Cholangioca rcinoma 21 Medical Oncology MD Dahlia 08/16/20 Anesthesia Event Anesthesiology Chris Randall, 21 BRUSH CLEARER SURVEYING 08/16/20 POEM Appointments Anesthesiology Vicky Moncada MD 08/16/20 Clinical Support Infectious Diseases Antwan, Susp ected COVID-19 (Primary 21 MD Dahlia Dx) Madhuri Barry, ROSS 08/16/20 Telephone Oncology [place], 21 Marta Allen MA 08/16/20 Orders Only Radiology Sabrina, 21 ALFREDO Brown 08/16/20 Travel 21 08/14/20 Telephone Nutrition Venecia, 21 Melodie, LISBETH 08/11/20 Telephone Nutrition Venecia, 21 Melodie, RD 08/11/20 Telephone Gastrointestinal Alvin, 21 Medical Oncology Michelle Allen RN 08/10/20 Infusion Infusion Services Obstructio n of biliary tree (Primary Dx); 21 Cholangiocarcin linda 08/10/20 Office Visit Gastrointestinal Ericka, Cholangioca rcinoma (Primary Dx); 21 Medical Oncology Vy E, Obstruction of biliary tree PA 08/10/20 Travel 08/04/20 Documentation Nutrition Venecia, 21 Melodie, RD 07/27/20 Infusion Infusion Services Cholangioc arcinoma (Primary 21 Dx) 07/27/20 Office Visit Gastrointestinal Antwan, Cholangioca rcinoma (Primary 21 Medical Oncology MD Dahlia Dx) 07/27/20 Documentation Moises, Vicky Akhtar MDiv 07/27/20 Travel 21 07/19/20 Travel 21 07/19/20 Orders Only Gastrointestinal Noah, 21 Medical Oncology MD Jared 07/18/20 [facility] Melanoma Sarcoma [facility], Neoplasm re lated pain (acute) (chronic) (Primary Dx); 21 - Encounter MD Nadeem Intractable abdominal pain; 07/21/20 Lamie, Leukocytosis; 21 Alonso, DO Cholangiocarcinoma; Tanner-L Abdominal pain; yaa, Cholangitis; MD Benito Abdominal pain, right upper quadrant; Alberto Adjustment diso rder with mixed anxiety and depressed mood; Erasmo, Primary adenoca rcinoma of common bile duct Quan Farias MD 07/18/20 Travel 07/18/20 Nurse Triage Abdi, 21 Saurabh, GEE 07/14/20 Hospital Radiology Etchegaray-L Cholangiocarcin linda 21 Encounter Benito mon MD McCarthy, Magdi Farias MD 07/14/20 Orders Only Radiology Niharika, Cancer associat ed pain (Primary Dx); 21 Magdi Farias MD Obstruction of biliary tree 07/14/20 Travel 21 07/13/20 Orders Only Radiology Vicky Valera PA 07/12/20 Infusion Infusion Services Cholangioc arcinoma (Primary 21 Dx) 07/12/20 Documentation Vicky De Leon MDiv 07/12/20 Travel 21 07/10/20 Infusion Infusion Services Cholangioc arcinoma 21 07/10/20 Documentation Bianca Gibbons 21 ROSS Plascencia 07/10/20 Orders Only Gastrointestinal Ericka, Cholangioca rcinoma (Primary 21 Medical Oncology Vy Hoyt, Dx) PA 07/10/20 Orders Only Gastrointestinal Antwan 21 Medical Oncology MD Dahlia 07/10/20 Travel 21 07/05/20 Orders Only Gastrointestinal Antwan, Cholangioca rcinoma (Primary 21 Medical Oncology MD Dahlia Dx) 07/05/20 Orders Only Gastrointestinal Ericka, Cholangioca rcinoma (Primary 21 Medical Oncology Vy Hoyt, Dx) PA 06/29/20 Office Visit Gastrointestinal Antwan, Primary kennedy nocarcinoma of 21 Medical Oncology MD Dahlia common bile duct (Primary Dx) 06/27/20 Anesthesia Event Radiology Castro Pollock, 21 Jill Cervantes, GEE 06/27/20 Surgery Endoscopy Ross, DIAGNOSTIC ENDO SCOPIC 21 ROGER Hameed MD CHOLANGIOPANCRE ATOGRAPHY 06/27/20 Travel 21 06/22/20 Anesthesia Event Radiology Kwater, 21 MD Rama Whitfield Sylvia, BAG MACHINE TENDER 06/22/20 [facility] Gynecology Brenden Obstructive hyp erbilirubinemia (Primary Dx); 21 - Encounter Mckenna, Hypokalemia; 07/07/20 Cecy Heredia MD Hypomagnesemia; 21 Chris, Abdominal pain; MD Buddy Primary adenocarcinoma of common bile du ct; Etchegaray-L Cholangiocarcin linda; yaa, Postoperative a bdominal pain; MD Benito Cancer associated pain; Juanjo Johnson, Nausea and vomi Marcelo Kaiser MD, MD 06/22/20 Travel 21 06/22/20 Nurse Triage Vicky Gomez, KULDEEP 06/17/20 Documentation Physical Therapy Tamiko Vicky Rafa, PT 06/17/20 Travel 21 06/16/20 [facility] GIM/Phase 1 Allyson, Chills (Primary Dx); 21 - Encounter MD Natalie Back pain; 06/21/20 Wattana, Abdominal pain; 21 MD Merry Complication of catheter; Suyapa Griffiths, Type 2 diabetes mellitus with hyperglycemia; Primary adenocarcinoma of common bile du ct; Garcia Waldrop MD Hyponatremia; Obstruction of biliary tree; Cancer associat ed pain; Anorexia; Cholangiocarcin linda 06/16/20 [facility] Radiology Bret, Obstruction of biliary tree (Primary Dx); 21 Encounter ALFREDO Painting Cancer associated pain; Cressman, Cholangiocarcin linda; MD Camden Encounter for o ther preprocedural examination 06/16/20 Orders Only Radiology Vicky Palencia PA 06/16/20 Travel 21 06/15/20 Nutrition Nutrition Antwan, Cholangiocarcin linda; 21 MD Dahlia Appetite symptom Ashley Mi Giovana, RD 06/15/20 Orders Only Radiology Vicky Queen PA 06/15/20 Telephone Colorectal Medicine Salome Maldonado 21 RN 06/15/20 Orders Only Gastrointestinal Vicky Moncada Medical Oncology MD Dahlia 06/14/20 [facility] Radiology Antwan, Cholangiocarcin linda (Primary 21 Encounter MD Dahlia Dx) Lelo Tracy PA 06/10/20 Documentation GastroenterologyChinmay, Vicky Hepatology & Manoop S., Nutrition 06/10/20 Orders Only GastroenterologyChinmay, Primary ad enocarcinoma of common bile duct (Primary Dx); 21 Hepatology & Manoop S., Obstruction of biliary tree Nutrition 06/10/20 Nurse Triage Vicky Morton RN 06/08/20 Anesthesia Event Endoscopy Vicky Hernandez MD Bellard, Bobby J., MD 06/08/20 Surgery Endoscopy Royce Moncada ENDOSCOPIC RETR COY Gu MD CHOLANGIOPANCRE ATOGRAPHY WITH PLACEMENT OF STENT OF BILE DUCT 06/08/20 Prep for Surgery Gastroenterology, Guaman, Cholan giocarcinoma (Primary 21 Hepatology & Andrew Dx) Nutrition MD Long 06/07/20 Travel 21 06/07/20 Telephone Gastrointestinal Vicky Esquivel Medical Oncology Michelle Allen RN 06/06/20 [facility] /GI Med [place]use [place], Cancer associat ed pain (Primary Dx); 21 - Encounter MD Jonathan Primary adenocarcinoma of common bile du ct; 06/09/20 Wattana, Pneumonia; 21 MD Merry Abdominal pain; Kennedy-Dellan Cholangiocarcin linda; , MD Panchito Nausea alone; Etchegaray-L Nausea; angly, Obstruction of biliary tree; MD Benito Failure to thrive; Odaro, Slow transit co nstipation; MD Kera Taste sense alt ered 06/06/20 Travel 06/06/20 Nurse Triage Vicky Blount PA 06/05/20 Infusion Infusion Services Ericka, Cholangioc arcinoma (Primary Dx); 21 Vy Hoyt Obstruction of biliary tree ALFREDO 06/05/20 Office Visit Gastrointestinal Antwan, Appetite sy mptom (Primary Dx); 21 Medical Oncology MD Dahlia Cholangioca rcinoma; Obstruction of biliary tree 06/05/20 Clinical Support Infectious Diseases Leobardo Moncada for observation 21 MD Dahlia for other suspected exposure Tk, to biological a gent ruled PHILLIP Patton out (Primary Dx ) 06/05/20 Travel 06/02/20 Orders Only Gastrointestinal Antwan, Primary kennedy nocarcinoma of 21 Medical Oncology MD Dahlia common bile duct 05/31/20 Anesthesia Event Radiology Vicky Kunz MD Joseph, Suma, CRNA 05/31/20 [facility] Radiology Ericka, Cholangiocarcin linda 21 Encounter ALFREDO Zapata Suma, CRNA Arnold, Benjamin A., MD Lu, Thomas, MD 05/31/20 Orders Only Gastrointestinal Atnwan, Primary kennedy nocarcinoma of 21 Medical Oncology MD Dahlia common bile duct (Primary Dx) 05/31/20 Travel 21 05/30/20 Anesthesia Event Anesthesiology Vicky Wallace RN 05/30/20 POEM Appointments Anesthesiology Vicky Scott PA 05/30/20 [facility] Radiology Antwan, Cholangiocarcin linda (Primary 21 Encounter MD Dahlia Dx) Lelo Tracy, PA 05/29/20 Clinical Support Infectious Diseases Leobardo Moncada for observation 21 MD Dahlia for other suspected exposure Tk, to biological a gent ruled PHILLIP Patton out (Primary Dx ) 05/29/20 Travel 05/27/20 Orders Only Gastrointestinal Antwan, Cholangioca rcinoma (Primary 21 Medical Oncology MD Dahlia Dx) 05/26/20 Orders Only Gastrointestinal Sirisaengtak 21 Medical Oncology sin, Sho, H 05/26/20 Orders Only Gastrointestinal Ericka, 21 Medical Oncology Vy E, PA 05/26/20 Orders Only Radiology Demarcus, 21 ALFREDO Lind 05/26/20 [facility], 21 Donya PA 05/26/20 Orders Only Radiology Sander Robles 21 T, PA 05/24/20 Infusion Infusion Services Antwan, Cholangioc arcinoma (Primary 21 MD Dahlia Dx) 05/24/20 Orders Only Gastrointestinal Antwan, 21 Medical Oncology MD Dahlia 05/24/20 Orders Only Gastrointestinal Ericka, Cholangioca rcinoma (Primary 21 Medical Oncology Vy E, Dx) PA 05/24/20 Travel 05/23/20 Orders Only Gastrointestinal Ericka, 21 Medical Oncology Vy E, PA 05/22/20 Travel 05/19/20 Orders Only Gastrointestinal Ericka, 21 Medical Oncology Vy E, PA 05/17/20 Travel 21 05/17/20 Orders Only Gastrointestinal Antwan, 21 Medical Oncology MD Dahlia 05/17/20 Orders Only Gastrointestinal Ericka, Cholangioca rcinoma (Primary 21 Medical Oncology Vy E, Dx) PA 05/15/20 [facility] Gynecology Vu, Renetta B, Obstruction of biliary tree (Primary Dx); 21 - Encounter Abdominal pain; 05/23/20 Wattana, Nausea and vomi ting; Vicky Sousa MD Cholangiocarcinoma; Aroldo Marie, Anxiety state; MD Elizabeth Nausea alone Tomasz Tejeda, 05/15/20 Telephone Oncology Tete, 21 Elsie Lake RN 05/15/20 Travel 05/11/20 Office Visit Gastrointestinal Antwan, Cholangioca rcinoma (Primary Dx); 21 Medical Oncology MD Dahlia 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 05/11/20 Travel 21 05/08/20 Nurse Triage Chintan Kovacs 21 Nilda Calles RN 05/08/20 Orders Only Radiology Demacrus, 21 ALFREDO Lind 05/05/20 Ancillary Radiology Antwan, Cancer 21 Procedure MD Dahlia 05/05/20 Ancillary Radiology Antwan, Cancer 21 Procedure MD Dahlia 05/05/20 Orders Only Gastrointestinal Ericka, Obstruction of biliary tree (Primary Dx); 21 Medical Oncology Vy Hoyt, Cholangioca rcinoma ALFREDO 05/05/20 Telephone Radiology Derik, Vicky Aguilar MA 05/05/20 Prep for Surgery Endoscopy Snow, Obstruction of biliary tree (Primary Dx); 21 ALFREDO No Cholangiocarcin linda 05/04/20 Orders Only Gastrointestinal Antwan, Obstruction of biliary tree (Primary Dx); 21 Medical Oncology MD Dahlia Cholangioca rcinoma 05/02/20 Travel 21 05/01/20 [facility] Stem Cell Transplant Everett, Abdomin al pain (Primary Dx); 21 - Encounter MD Royce Acute headache; 05/04/20 Anton, Nausea; 21 Mayopaolo, DO Primary adenocarcinoma of common bile du ct; Juanjo Johnson, Obstruction of biliary tree; Cancer associated pain Trina Fuller MD 05/01/20 Travel 21 05/01/20 Nurse Triage Jin, GEE Paez 04/14/20 Ancillary Radiology Cancer 21 Procedure 04/14/20 Ancillary Radiology Cancer 21 Procedure 04/14/20 Ancillary Radiology Cancer 21 Procedure 04/14/20 Ancillary Radiology Cancer 21 Procedure 04/14/20 Orders Only Gastrointestinal Ericka, Primary kennedy nocarcinoma of 21 Medical Oncology Vy E, common bile duct (Primary PA Dx) 04/11/20 Lab Requisition Vicky Pollard MD He, Jing, MD 04/09/[address], 21 Medical Oncology ALFREDO Menjivar 04/04/20 Travel 21 after 09/22/2020 Immunizations Name Administration Dates Next Due Influenza, Unspecified 10/08/2020, 10/08/2020, 09/24/2019, 1 10/27/2017 Tdap 05/20/2015 Surgical History Surgery Date Site/Laterality Comments BILE DUCT STENT PLACEMENT MO ERCP STENT PLACEMENT 06/08/2021 N/A Procedur e: ENDOSCOPIC RETROGRADE BILIARY/PANCREATIC DUCT CHOLANGI OPANCREATOGRAPHY WITH PLACEMENT OF SARAH NT OF BILE DUCT; Surgeon: Royce Moncada MD; Location: MAIN E NDOSCOPY; Service: GASTROENTEROLOGY Medical devices from this surgery are in the Impla nts section. MO ERCP DX COLLECTION 06/27/2021 N/A Procedure: DIAGNOSTIC ENDOSCOPIC SPECIMEN RETROGRADE CHOLA NGIOPANCREATOGRAPHY; BRUSHING/WASHING Surgeon: Ilya Quiñonez MD; Location: MAIN E NDOSCOPY; Service: GASTROENTEROLOGY Medical History Medical History Date Comments Type 2 diabetes mellitus Primary cholangiocarcinoma of intrahepatic biliary tract Hypertension Disorder of thyroid gland Social History Tobacco Use Types Packs/Day Years Used Date Never Smoker Smokeless Tobacco: Never Used Alcohol Use Standard Drinks/Week Comments Never 0 (1 standard drink = 0.6 oz pure alcoho l) Alcohol Habits Answer Date Recorded How often do you have a drink containing alcohol? Never 05/02/2021 How many drinks containing alcohol do you have on a typical Not asked day when you are drinking? How often do you have six or more drinks on one occasion? No t asked Comment: Not asked Sex Assigned at Date Recorded Not on file Job Start Date Occupation Industry Not on file Not on file Not on file COVID-19 Exposure Response Date Recorded In the last month, have you been in contact with No / Unsure 09/21/2021 10:19 AM DAIRY ASSOCIATE someone who was confirmed or suspected to have Coronavirus / COVID-19? Obstetrics History Para Term AB IAB SAB Ectopic Multiple Living Live Births 2 2 2 Date Outcome GA Total Labor/2nd/3rd Weight Sex Delivery Anes PTL Brittany A 1 A5 Name Clin Labor Para Para Last Filed Vital Signs Vital Sign Reading Time Taken Comments Blood Pressure 110/71 09/21/2021 12:50 PM DAIRY ASSOCIATE Pulse 88 09/21/2021 12:50 PM DAIRY ASSOCIATE Temperature 37.1 C (98.8 F) 09/21/2021 12:50 PM DAIRY ASSOCIATE Respiratory Rate 18 09/21/2021 12:50 PM DAIRY ASSOCIATE Oxygen Saturation 99% 09/21/2021 12:50 PM DAIRY ASSOCIATE Inhaled Oxygen Concentration - - Weight 45.7 kg (100 lb 12 oz) 09/21/2021 12:53 PM DAIRY ASSOCIATE Height 152.4 cm (5') 09/17/2021 5:34 PM DAIRY ASSOCIATE Body Mass Index 19.68 09/17/2021 5:34 PM DAIRY ASSOCIATE Plan of Treatment Date Type Specialty Care Team Description 09/20/2021 Anesthesia Event Anesthesiology Tim Waldrop RN [address] [place] [address] 09/28/2021 Lab Lab Dahlia Moncada M D [address] [place], [place] [address] 09/28/2021 Office Visit Gastrointestinal Medical Taylor Moncada MD Oncology [address] [place] [address] 09/28/2021 Infusion Infusion Services Dahlia Moncada MD [address] [place] [address] 10/03/2021 Clinical Support Infectious Diseases Kamilla Moncada MD [address] [place] [address] 10/04/2021 POEM Appointments Anesthesiology Jannette Bennett PA [address] [place], [place] [address] 10/05/2021 Appointment Radiology Cecy Isaacs MD [address] [place] [address] Health Maintenance Due Date Last Done Comments COVID-19 Vaccination (2 - Booster for Pina series) 03/18/2021 01/21/2021 Implants Implanted Type Area Security Operations Engineer Device Shelf Model / Identifier Expiration Serial / Date Lot PwAcacia alberto 6fr - [id number] Port Right: BARD PERIP HERAL 02/17/2022 [id number] / Implanted: Qty: 1 on 05/31/[address] [address] [facility] [address] VASCULAR / Wall [id number] Biliary Plastic Stent [id number] Bruce Paiz - [id number] Lela KAN [facility] 11/11/2021 [id number] / Implanted: Qty: 1 on 06/08/2021 by Royce Moncada MD at [facility] / [id number] Hip Replacement Right: Hip Procedures Procedure Name Priority Date/Time Associated Diagnosis Comme nts XR ANKLE 3 OR MORE VIEWS Routine 09/21/2021 Acute ankle pain Results for RIGHT 10:57 AM DAIRY ASSOCIATE <Right side> this procedure are in the results section. XR HEEL 2 VIEWS MIN RIGHT Routine 09/21/2021 Acute ankle evangelina n Results for 10:56 AM DAIRY ASSOCIATE <Right side> this procedure are in the results section. POC GLUCOSE SCREEN Routine 09/19/2021 Results f or 8:53 AM DAIRY ASSOCIATE this procedure are in the results section. FRACTIONATED BILIRUBIN AM 09/19/2021 Resul ts for 4:04 AM DAIRY ASSOCIATE this procedure are in the results section. TOTAL PROTEIN AM 09/19/2021 Results for 4:04 AM DAIRY ASSOCIATE this procedure are in the results section. ASPARTATE AMINOTRANSFERASE AM 09/19/2021 R esults for 4:04 AM DAIRY ASSOCIATE this procedure are in the results section. ALANINE AMINOTRANSFERASE AM 09/19/2021 Res ults for 4:04 AM DAIRY ASSOCIATE this procedure are in the results section. ALKALINE PHOSPHATASE AM 09/19/2021 Results for 4:04 AM DAIRY ASSOCIATE this procedure are in the results section. ALBUMIN LEVEL AM 09/19/2021 Results for 4:04 AM DAIRY ASSOCIATE this procedure are in the results section. CALCIUM LEVEL TOTAL AM 09/19/2021 Results for 4:04 AM DAIRY ASSOCIATE this procedure are in the results section. .GLOMERULAR FILTRATION RATE AM 09/19/2021 Results for 4:04 AM DAIRY ASSOCIATE this procedure are in the results section. SERUM CREATININE AM 09/19/2021 Results for 4:04 AM DAIRY ASSOCIATE this procedure are in the results section. ELECTROLYTE PANEL AM 09/19/2021 Results fo r 4:04 AM DAIRY ASSOCIATE this procedure are in the results section. BLOOD UREA NITROGEN AM 09/19/2021 Results for 4:04 AM DAIRY ASSOCIATE this procedure are in the results section. GLUCOSE LEVEL AM 09/19/2021 Results for 4:04 AM DAIRY ASSOCIATE this procedure are in the results section. MANUAL DIFFERENTIAL AM 09/19/2021 Results for 4:04 AM DAIRY ASSOCIATE this procedure are in the results section. Results CBC AM 09/19/2021 Results for 4:04 AM DAIRY ASSOCIATE this procedure are in the results section. PHOSPHORUS LEVEL AM 09/19/2021 Results for 4:04 AM DAIRY ASSOCIATE this procedure are in the results section. MAGNESIUM LEVEL AM 09/19/2021 Results for 4:04 AM DAIRY ASSOCIATE this procedure are in the results section. COMPREHENSIVE METABOLIC AM 09/19/2021 PANEL 4:04 AM DAIRY ASSOCIATE COMPLETE BLOOD COUNT W/ AM 09/19/2021 DIFFERENTIAL 4:04 AM DAIRY ASSOCIATE POC GLUCOSE SCREEN Routine 09/18/2021 Results f or 10:00 PM DAIRY ASSOCIATE this procedure are in the results section. POC GLUCOSE SCREEN Routine 09/18/2021 Results f or 5:46 PM DAIRY ASSOCIATE this procedure are in the results section. POC GLUCOSE SCREEN Routine 09/18/2021 Results f or 11:51 AM DAIRY ASSOCIATE this procedure are in the results section. POC GLUCOSE SCREEN Routine 09/18/2021 Results f or 8:04 AM DAIRY ASSOCIATE this procedure are in the results section. FRACTIONATED BILIRUBIN AM 09/18/2021 Resul ts for 4:13 AM DAIRY ASSOCIATE this procedure are in the results section. TOTAL PROTEIN AM 09/18/2021 Results for 4:13 AM DAIRY ASSOCIATE this procedure are in the results section. ASPARTATE AMINOTRANSFERASE AM 09/18/2021 R esults for 4:13 AM DAIRY ASSOCIATE this procedure are in the results section. ALANINE AMINOTRANSFERASE AM 09/18/2021 Res ults for 4:13 AM DAIRY ASSOCIATE this procedure are in the results section. ALKALINE PHOSPHATASE AM 09/18/2021 Results for 4:13 AM DAIRY ASSOCIATE this procedure are in the results section. ALBUMIN LEVEL AM 09/18/2021 Results for 4:13 AM DAIRY ASSOCIATE this procedure are in the results section. CALCIUM LEVEL TOTAL AM 09/18/2021 Results for 4:13 AM DAIRY ASSOCIATE this procedure are in the results section. .GLOMERULAR FILTRATION RATE AM 09/18/2021 Results for 4:13 AM DAIRY ASSOCIATE this procedure are in the results section. SERUM CREATININE AM 09/18/2021 Results for 4:13 AM DAIRY ASSOCIATE this procedure are in the results section. ELECTROLYTE PANEL AM 09/18/2021 Results fo r 4:13 AM DAIRY ASSOCIATE this procedure are in the results section. BLOOD UREA NITROGEN AM 09/18/2021 Results for 4:13 AM DAIRY ASSOCIATE this procedure are in the results section. GLUCOSE LEVEL AM 09/18/2021 Results for 4:13 AM DAIRY ASSOCIATE this procedure are in the results section. MANUAL DIFFERENTIAL AM 09/18/2021 Results for 4:13 AM DAIRY ASSOCIATE this procedure are in the results section. Results CBC AM 09/18/2021 Results for 4:13 AM DAIRY ASSOCIATE this procedure are in the results section. VITAMIN B12 LEVEL Now 09/18/2021 Results fo r 4:13 AM DAIRY ASSOCIATE this procedure are in the results section. FERRITIN LVL AM 09/18/2021 Results for 4:13 AM DAIRY ASSOCIATE this procedure are in the results section. TRANSFERRIN AM 09/18/2021 Results for 4:13 AM DAIRY ASSOCIATE this procedure are in the results section. IRON LEVEL AM 09/18/2021 Results for 4:13 AM DAIRY ASSOCIATE this procedure are in the results section. PHOSPHORUS LEVEL AM 09/18/2021 Results for 4:13 AM DAIRY ASSOCIATE this procedure are in the results section. MAGNESIUM LEVEL AM 09/18/2021 Results for 4:13 AM DAIRY ASSOCIATE this procedure are in the results section. COMPREHENSIVE METABOLIC AM 09/18/2021 PANEL 4:13 AM DAIRY ASSOCIATE COMPLETE BLOOD COUNT W/ AM 09/18/2021 DIFFERENTIAL 4:13 AM DAIRY ASSOCIATE EKG, 12-LEAD (PORTABLE) Routine 09/18/2021 URINALYSIS MICROSCOPIC Routine 09/17/2021 Resul ts for 11:07 PM DAIRY ASSOCIATE this procedure are in the results section. URINALYSIS WITH MICROSCOPIC Now 09/17/2021 Results for IF INDICATED 11:07 PM DAIRY ASSOCIATE this procedure are in the results section. C DIFFICILE DNA ASSAY Now 09/17/2021 Result s for 11:07 PM DAIRY ASSOCIATE this procedure are in the results section. GASTROINTESTINAL MULTIPLEX Now 09/17/2021 R esults for PANEL 11:07 PM DAIRY ASSOCIATE this procedure are in the results section. URINE CULTURE Now 09/17/2021 Results for 11:07 PM DAIRY ASSOCIATE this procedure are in the results section. POC GLUCOSE SCREEN Routine 09/17/2021 Results f or 10:44 PM DAIRY ASSOCIATE this procedure are in the results section. POC GLUCOSE SCREEN Routine 09/17/2021 Results f or 6:14 PM DAIRY ASSOCIATE this procedure are in the results section. COVID-19 (SARS-COV-2) Now 09/17/2021 Result s for ASYMPTOMATIC-LT 4:18 PM DAIRY ASSOCIATE this procedure are in the results section. CT ABDOMEN PELVIS W CONTRAST STAT 09/17/2021 Results for 1:07 PM DAIRY ASSOCIATE this procedure are in the results section. POC GLUCOSE SCREEN Routine 09/17/2021 Results f or 11:57 AM DAIRY ASSOCIATE this procedure are in the results section. POC CHEM 8 Routine 09/17/2021 Results for 11:42 AM DAIRY ASSOCIATE this procedure are in the results section. ANION GAP Routine 09/17/2021 Results for 11:40 AM DAIRY ASSOCIATE this procedure are in the results section. FRACTIONATED BILIRUBIN Now 09/17/2021 Resul ts for 11:40 AM DAIRY ASSOCIATE this procedure are in the results section. TOTAL PROTEIN Now 09/17/2021 Results for 11:40 AM DAIRY ASSOCIATE this procedure are in the results section. ASPARTATE AMINOTRANSFERASE Now 09/17/2021 R esults for 11:40 AM DAIRY ASSOCIATE this procedure are in the results section. ALANINE AMINOTRANSFERASE Now 09/17/2021 Res ults for 11:40 AM DAIRY ASSOCIATE this procedure are in the results section. ALKALINE PHOSPHATASE Now 09/17/2021 Results for 11:40 AM DAIRY ASSOCIATE this procedure are in the results section. .GLOMERULAR FILTRATION RATE Now 09/17/2021 Results for 11:40 AM DAIRY ASSOCIATE this procedure are in the results section. SERUM CREATININE Now 09/17/2021 Results for 11:40 AM DAIRY ASSOCIATE this procedure are in the results section. MANUAL DIFFERENTIAL Now 09/17/2021 Results for 11:40 AM DAIRY ASSOCIATE this procedure are in the results section. Results CBC STAT 09/17/2021 Results for 11:40 AM DAIRY ASSOCIATE this procedure are in the results section. HEPATIC FUNCTION PANEL Now 09/17/2021 11:40 AM DAIRY ASSOCIATE POTASSIUM LEVEL Now 09/17/2021 Results for 11:40 AM DAIRY ASSOCIATE this procedure are in the results section. SODIUM LEVEL Now 09/17/2021 Results for 11:40 AM DAIRY ASSOCIATE this procedure are in the results section. CARBON DIOXIDE LEVEL Now 09/17/2021 Results for 11:40 AM DAIRY ASSOCIATE this procedure are in the results section. CHLORIDE LEVEL Now 09/17/2021 Results for 11:40 AM DAIRY ASSOCIATE this procedure are in the results section. ALBUMIN LEVEL Now 09/17/2021 Results for 11:40 AM DAIRY ASSOCIATE this procedure are in the results section. SERUM CREATININE Now 09/17/2021 11:40 AM DAIRY ASSOCIATE BLOOD UREA NITROGEN Now 09/17/2021 Results for 11:40 AM DAIRY ASSOCIATE this procedure are in the results section. GLUCOSE, RANDOM Now 09/17/2021 Results for 11:40 AM DAIRY ASSOCIATE this procedure are in the results section. CALCIUM LEVEL TOTAL Now 09/17/2021 Results for 11:40 AM DAIRY ASSOCIATE this procedure are in the results section. PHOSPHORUS LEVEL Now 09/17/2021 Results for 11:40 AM DAIRY ASSOCIATE this procedure are in the results section. MAGNESIUM LEVEL Now 09/17/2021 Results for 11:40 AM DAIRY ASSOCIATE this procedure are in the results section. LACTIC ACID, VENOUS Now 09/17/2021 Results for 11:40 AM DAIRY ASSOCIATE this procedure are in the results section. LIPASE LEVEL Now 09/17/2021 Results for 11:40 AM DAIRY ASSOCIATE this procedure are in the results section. AMYLASE LEVEL Now 09/17/2021 Results for 11:40 AM DAIRY ASSOCIATE this procedure are in the results section. COMPLETE BLOOD COUNT W/ Now 09/17/2021 DIFFERENTIAL 11:40 AM DAIRY ASSOCIATE MANUAL DIFFERENTIAL Routine 09/13/2021 Cholangiocarcinoma Re sults for 6:45 AM DAIRY ASSOCIATE this procedure are in the results section. Results CBC Routine 09/13/2021 Cholangiocarcinoma Results f or 6:45 AM DAIRY ASSOCIATE this procedure are in the results section. FRACTIONATED BILIRUBIN Routine 09/13/2021 Cholangiocarcinoma Results for 6:45 AM DAIRY ASSOCIATE this procedure are in the results section. TOTAL PROTEIN Routine 09/13/2021 Cholangiocarcinoma Results for 6:45 AM DAIRY ASSOCIATE this procedure are in the results section. ASPARTATE AMINOTRANSFERASE Routine 09/13/2021 Cholangiocarci noma Results for 6:45 AM DAIRY ASSOCIATE this procedure are in the results section. ALANINE AMINOTRANSFERASE Routine 09/13/2021 Cholangiocarcino ma Results for 6:45 AM DAIRY ASSOCIATE this procedure are in the results section. ALKALINE PHOSPHATASE Routine 09/13/2021 Cholangiocarcinoma R esults for 6:45 AM DAIRY ASSOCIATE this procedure are in the results section. ALBUMIN LEVEL Routine 09/13/2021 Cholangiocarcinoma Results for 6:45 AM DAIRY ASSOCIATE this procedure are in the results section. CALCIUM LEVEL TOTAL Routine 09/13/2021 Cholangiocarcinoma Re sults for 6:45 AM DAIRY ASSOCIATE this procedure are in the results section. .GLOMERULAR FILTRATION RATE Routine 09/13/2021 Cholangiocarc inoma Results for 6:45 AM DAIRY ASSOCIATE this procedure are in the results section. SERUM CREATININE Routine 09/13/2021 Cholangiocarcinoma Resul ts for 6:45 AM DAIRY ASSOCIATE this procedure are in the results section. ELECTROLYTE PANEL Routine 09/13/2021 Cholangiocarcinoma Resu lts for 6:45 AM DAIRY ASSOCIATE this procedure are in the results section. BLOOD UREA NITROGEN Routine 09/13/2021 Cholangiocarcinoma Re sults for 6:45 AM DAIRY ASSOCIATE this procedure are in the results section. GLUCOSE LEVEL Routine 09/13/2021 Cholangiocarcinoma Results for 6:45 AM DAIRY ASSOCIATE this procedure are in the results section. COMPLETE BLOOD COUNT W/ Routine 09/13/2021 Cholangiocarcinom a DIFFERENTIAL 6:45 AM DAIRY ASSOCIATE CANCER ANTIGEN 19-9 Routine 09/13/2021 Cholangiocarcinoma Re sults for 6:45 AM DAIRY ASSOCIATE this procedure are in the results section. COMPREHENSIVE METABOLIC Routine 09/13/2021 Cholangiocarcinom a PANEL 6:45 AM DAIRY ASSOCIATE MANUAL DIFFERENTIAL Routine 08/31/2021 Cholangiocarcinoma Re sults for 8:07 AM DAIRY ASSOCIATE this procedure are in the results section. Results CBC Routine 08/31/2021 Cholangiocarcinoma Results f or 8:07 AM DAIRY ASSOCIATE this procedure are in the results section. FRACTIONATED BILIRUBIN Routine 08/31/2021 Cholangiocarcinoma Results for 8:07 AM DAIRY ASSOCIATE this procedure are in the results section. TOTAL PROTEIN Routine 08/31/2021 Cholangiocarcinoma Results for 8:07 AM DAIRY ASSOCIATE this procedure are in the results section. ASPARTATE AMINOTRANSFERASE Routine 08/31/2021 Cholangiocarci noma Results for 8:07 AM DAIRY ASSOCIATE this procedure are in the results section. ALANINE AMINOTRANSFERASE Routine 08/31/2021 Cholangiocarcino ma Results for 8:07 AM DAIRY ASSOCIATE this procedure are in the results section. ALKALINE PHOSPHATASE Routine 08/31/2021 Cholangiocarcinoma R esults for 8:07 AM DAIRY ASSOCIATE this procedure are in the results section. ALBUMIN LEVEL Routine 08/31/2021 Cholangiocarcinoma Results for 8:07 AM DAIRY ASSOCIATE this procedure are in the results section. CALCIUM LEVEL TOTAL Routine 08/31/2021 Cholangiocarcinoma Re sults for 8:07 AM DAIRY ASSOCIATE this procedure are in the results section. .GLOMERULAR FILTRATION RATE Routine 08/31/2021 Cholangiocarc inoma Results for 8:07 AM DAIRY ASSOCIATE this procedure are in the results section. SERUM CREATININE Routine 08/31/2021 Cholangiocarcinoma Resul ts for 8:07 AM DAIRY ASSOCIATE this procedure are in the results section. ELECTROLYTE PANEL Routine 08/31/2021 Cholangiocarcinoma Resu lts for 8:07 AM DAIRY ASSOCIATE this procedure are in the results section. BLOOD UREA NITROGEN Routine 08/31/2021 Cholangiocarcinoma Re sults for 8:07 AM DAIRY ASSOCIATE this procedure are in the results section. GLUCOSE LEVEL Routine 08/31/2021 Cholangiocarcinoma Results for 8:07 AM DAIRY ASSOCIATE this procedure are in the results section. COMPLETE BLOOD COUNT W/ Routine 08/31/2021 Cholangiocarcinom a DIFFERENTIAL 8:07 AM DAIRY ASSOCIATE CANCER ANTIGEN 19-9 Routine 08/31/2021 Cholangiocarcinoma Re sults for 8:07 AM DAIRY ASSOCIATE this procedure are in the results section. COMPREHENSIVE METABOLIC Routine 08/31/2021 Cholangiocarcinom a PANEL 8:07 AM DAIRY ASSOCIATE MANUAL DIFFERENTIAL AM 08/26/2021 Results for 3:42 AM CDT this procedure are in the results section. Results CBC AM 08/26/2021 Results for 3:42 AM CDT this procedure are in the results section. FRACTIONATED BILIRUBIN AM 08/26/2021 Resul ts for 3:42 AM CDT this procedure are in the results section. TOTAL PROTEIN AM 08/26/2021 Results for 3:42 AM CDT this procedure are in the results section. ASPARTATE AMINOTRANSFERASE AM 08/26/2021 R esults for 3:42 AM CDT this procedure are in the results section. ALANINE AMINOTRANSFERASE AM 08/26/2021 Res ults for 3:42 AM CDT this procedure are in the results section. ALKALINE PHOSPHATASE AM 08/26/2021 Results for 3:42 AM CDT this procedure are in the results section. ALBUMIN LEVEL AM 08/26/2021 Results for 3:42 AM CDT this procedure are in the results section. CALCIUM LEVEL TOTAL AM 08/26/2021 Results for 3:42 AM CDT this procedure are in the results section. .GLOMERULAR FILTRATION RATE AM 08/26/2021 Results for 3:42 AM CDT this procedure are in the results section. SERUM CREATININE AM 08/26/2021 Results for 3:42 AM CDT this procedure are in the results section. ELECTROLYTE PANEL AM 08/26/2021 Results fo r 3:42 AM CDT this procedure are in the results section. BLOOD UREA NITROGEN AM 08/26/2021 Results for 3:42 AM CDT this procedure are in the results section. GLUCOSE LEVEL AM 08/26/2021 Results for 3:42 AM CDT this procedure are in the results section. HEPATIC FUNCTION PANEL AM 08/26/2021 3:42 AM CDT COMPLETE BLOOD COUNT W/ AM 08/26/2021 DIFFERENTIAL 3:42 AM CDT BASIC METABOLIC PANEL, AM 08/26/2021 CALCIUM TOTAL 3:42 AM CDT XR ABDOMEN 1 VW PORTABLE Routine 08/25/2021 Res ults for 3:23 AM CDT this procedure are in the results section. CARDIAC PANEL Timed Study 08/25/2021 Results for 2:35 AM CDT this procedure are in the results section. PHOSPHORUS LEVEL Timed Study 08/25/2021 Results for 2:35 AM CDT this procedure are in the results section. MAGNESIUM LEVEL Timed Study 08/25/2021 Results for 2:35 AM CDT this procedure are in the results section. MANUAL DIFFERENTIAL AM 08/25/2021 Results for 2:35 AM CDT this procedure are in the results section. Results CBC AM 08/25/2021 Results for 2:35 AM CDT this procedure are in the results section. FRACTIONATED BILIRUBIN AM 08/25/2021 Resul ts for 2:35 AM CDT this procedure are in the results section. TOTAL PROTEIN AM 08/25/2021 Results for 2:35 AM CDT this procedure are in the results section. ASPARTATE AMINOTRANSFERASE AM 08/25/2021 R esults for 2:35 AM CDT this procedure are in the results section. ALANINE AMINOTRANSFERASE AM 08/25/2021 Res ults for 2:35 AM CDT this procedure are in the results section. ALKALINE PHOSPHATASE AM 08/25/2021 Results for 2:35 AM CDT this procedure are in the results section. ALBUMIN LEVEL AM 08/25/2021 Results for 2:35 AM CDT this procedure are in the results section. CALCIUM LEVEL TOTAL AM 08/25/2021 Results for 2:35 AM CDT this procedure are in the results section. .GLOMERULAR FILTRATION RATE AM 08/25/2021 Results for 2:35 AM CDT this procedure are in the results section. SERUM CREATININE AM 08/25/2021 Results for 2:35 AM CDT this procedure are in the results section. ELECTROLYTE PANEL AM 08/25/2021 Results fo r 2:35 AM CDT this procedure are in the results section. BLOOD UREA NITROGEN AM 08/25/2021 Results for 2:35 AM CDT this procedure are in the results section. GLUCOSE LEVEL AM 08/25/2021 Results for 2:35 AM CDT this procedure are in the results section. HEPATIC FUNCTION PANEL AM 08/25/2021 2:35 AM CDT COMPLETE BLOOD COUNT W/ AM 08/25/2021 DIFFERENTIAL 2:35 AM CDT BASIC METABOLIC PANEL, AM 08/25/2021 CALCIUM TOTAL 2:35 AM CDT EKG, 12-LEAD (PORTABLE) STAT 08/25/2021 MANUAL DIFFERENTIAL AM 08/24/2021 Results for 2:55 AM CDT this procedure are in the results section. Results CBC AM 08/24/2021 Results for 2:55 AM CDT this procedure are in the results section. FRACTIONATED BILIRUBIN AM 08/24/2021 Resul ts for 2:55 AM CDT this procedure are in the results section. TOTAL PROTEIN AM 08/24/2021 Results for 2:55 AM CDT this procedure are in the results section. ASPARTATE AMINOTRANSFERASE AM 08/24/2021 R esults for 2:55 AM CDT this procedure are in the results section. ALANINE AMINOTRANSFERASE AM 08/24/2021 Res ults for 2:55 AM CDT this procedure are in the results section. ALKALINE PHOSPHATASE AM 08/24/2021 Results for 2:55 AM CDT this procedure are in the results section. ALBUMIN LEVEL AM 08/24/2021 Results for 2:55 AM CDT this procedure are in the results section. CALCIUM LEVEL TOTAL AM 08/24/2021 Results for 2:55 AM CDT this procedure are in the results section. .GLOMERULAR FILTRATION RATE AM 08/24/2021 Results for 2:55 AM CDT this procedure are in the results section. SERUM CREATININE AM 08/24/2021 Results for 2:55 AM CDT this procedure are in the results section. ELECTROLYTE PANEL AM 08/24/2021 Results fo r 2:55 AM CDT this procedure are in the results section. BLOOD UREA NITROGEN AM 08/24/2021 Results for 2:55 AM CDT this procedure are in the results section. GLUCOSE LEVEL AM 08/24/2021 Results for 2:55 AM CDT this procedure are in the results section. HEPATIC FUNCTION PANEL AM 08/24/2021 2:55 AM CDT COMPLETE BLOOD COUNT W/ AM 08/24/2021 DIFFERENTIAL 2:55 AM CDT BASIC METABOLIC PANEL, AM 08/24/2021 CALCIUM TOTAL 2:55 AM CDT POC GLUCOSE SCREEN Routine 08/23/2021 Results f or 5:33 PM CDT this procedure are in the results section. US CHEST Routine 08/23/2021 Results for 4:35 PM CDT this procedure are in the results section. POC GLUCOSE SCREEN Routine 08/23/2021 Results f or 11:28 AM CDT this procedure are in the results section. POC GLUCOSE SCREEN Routine 08/23/2021 Results f or 7:23 AM CDT this procedure are in the results section. MANUAL DIFFERENTIAL AM 08/23/2021 Results for 4:18 AM CDT this procedure are in the results section. Results CBC AM 08/23/2021 Results for 4:18 AM CDT this procedure are in the results section. FRACTIONATED BILIRUBIN AM 08/23/2021 Resul ts for 4:18 AM CDT this procedure are in the results section. TOTAL PROTEIN AM 08/23/2021 Results for 4:18 AM CDT this procedure are in the results section. ASPARTATE AMINOTRANSFERASE AM 08/23/2021 R esults for 4:18 AM CDT this procedure are in the results section. ALANINE AMINOTRANSFERASE AM 08/23/2021 Res ults for 4:18 AM CDT this procedure are in the results section. ALKALINE PHOSPHATASE AM 08/23/2021 Results for 4:18 AM CDT this procedure are in the results section. ALBUMIN LEVEL AM 08/23/2021 Results for 4:18 AM CDT this procedure are in the results section. CALCIUM LEVEL TOTAL AM 08/23/2021 Results for 4:18 AM CDT this procedure are in the results section. .GLOMERULAR FILTRATION RATE AM 08/23/2021 Results for 4:18 AM CDT this procedure are in the results section. SERUM CREATININE AM 08/23/2021 Results for 4:18 AM CDT this procedure are in the results section. ELECTROLYTE PANEL AM 08/23/2021 Results fo r 4:18 AM CDT this procedure are in the results section. BLOOD UREA NITROGEN AM 08/23/2021 Results for 4:18 AM CDT this procedure are in the results section. GLUCOSE LEVEL AM 08/23/2021 Results for 4:18 AM CDT this procedure are in the results section. HEPATIC FUNCTION PANEL AM 08/23/2021 4:18 AM CDT COMPLETE BLOOD COUNT W/ AM 08/23/2021 DIFFERENTIAL 4:18 AM CDT BASIC METABOLIC PANEL, AM 08/23/2021 CALCIUM TOTAL 4:18 AM CDT EKG, 12-LEAD (PORTABLE) STAT 08/23/2021 POC GLUCOSE SCREEN Routine 08/22/2021 Results f or 11:58 PM CDT this procedure are in the results section. POC GLUCOSE SCREEN Routine 08/22/2021 Results f or 6:32 PM CDT this procedure are in the results section. POC GLUCOSE SCREEN Routine 08/22/2021 Results f or 1:31 PM CDT this procedure are in the results section. IR EXCHANGE OF BILIARY Routine 08/22/2021 Cholangiocarcinoma Results for DRAINAGE CATHETER 11:03 AM CDT this procedure are in the results section. POC GLUCOSE SCREEN Routine 08/22/2021 Results f or 7:40 AM CDT this procedure are in the results section. MANUAL DIFFERENTIAL AM 08/22/2021 Results for 7:40 AM CDT this procedure are in the results section. Results CBC AM 08/22/2021 Results for 7:40 AM CDT this procedure are in the results section. FRACTIONATED BILIRUBIN AM 08/22/2021 Resul ts for 7:40 AM CDT this procedure are in the results section. TOTAL PROTEIN AM 08/22/2021 Results for 7:40 AM CDT this procedure are in the results section. ASPARTATE AMINOTRANSFERASE AM 08/22/2021 R esults for 7:40 AM CDT this procedure are in the results section. ALANINE AMINOTRANSFERASE AM 08/22/2021 Res ults for 7:40 AM CDT this procedure are in the results section. ALKALINE PHOSPHATASE AM 08/22/2021 Results for 7:40 AM CDT this procedure are in the results section. ALBUMIN LEVEL AM 08/22/2021 Results for 7:40 AM CDT this procedure are in the results section. CALCIUM LEVEL TOTAL AM 08/22/2021 Results for 7:40 AM CDT this procedure are in the results section. .GLOMERULAR FILTRATION RATE AM 08/22/2021 Results for 7:40 AM CDT this procedure are in the results section. SERUM CREATININE AM 08/22/2021 Results for 7:40 AM CDT this procedure are in the results section. ELECTROLYTE PANEL AM 08/22/2021 Results fo r 7:40 AM CDT this procedure are in the results section. BLOOD UREA NITROGEN AM 08/22/2021 Results for 7:40 AM CDT this procedure are in the results section. GLUCOSE LEVEL AM 08/22/2021 Results for 7:40 AM CDT this procedure are in the results section. HEPATIC FUNCTION PANEL AM 08/22/2021 7:40 AM CDT COMPLETE BLOOD COUNT W/ AM 08/22/2021 DIFFERENTIAL 7:40 AM CDT BASIC METABOLIC PANEL, AM 08/22/2021 CALCIUM TOTAL 7:40 AM CDT POC GLUCOSE SCREEN Routine 08/21/2021 Results f or 11:48 PM CDT this procedure are in the results section. XR CHEST 1 VW PORTABLE STAT 08/21/2021 Resul ts for 11:12 PM CDT this procedure are in the results section. POC GLUCOSE SCREEN Routine 08/21/2021 Results f or 6:41 PM CDT this procedure are in the results section. BLOODCULTURE Now 08/21/2021 Results for 2:20 PM CDT this procedure are in the results section. BLOODCULTURE Now 08/21/2021 Results for 1:49 PM CDT this procedure are in the results section. POC GLUCOSE SCREEN Routine 08/21/2021 Results f or 12:04 PM CDT this procedure are in the results section. ECHOCARDIOGRAM 2D COMPLETE Routine 08/21/2021 R esults for 11:23 AM CDT this procedure are in the results section. POC GLUCOSE SCREEN Routine 08/21/2021 Results f or 8:32 AM CDT this procedure are in the results section. POC GLUCOSE SCREEN Routine 08/21/2021 Results f or 7:14 AM CDT this procedure are in the results section. MANUAL DIFFERENTIAL AM 08/21/2021 Results for 3:54 AM CDT this procedure are in the results section. Results CBC AM 08/21/2021 Results for 3:54 AM CDT this procedure are in the results section. FRACTIONATED BILIRUBIN AM 08/21/2021 Resul ts for 3:54 AM CDT this procedure are in the results section. TOTAL PROTEIN AM 08/21/2021 Results for 3:54 AM CDT this procedure are in the results section. ASPARTATE AMINOTRANSFERASE AM 08/21/2021 R esults for 3:54 AM CDT this procedure are in the results section. ALANINE AMINOTRANSFERASE AM 08/21/2021 Res ults for 3:54 AM CDT this procedure are in the results section. ALKALINE PHOSPHATASE AM 08/21/2021 Results for 3:54 AM CDT this procedure are in the results section. ALBUMIN LEVEL AM 08/21/2021 Results for 3:54 AM CDT this procedure are in the results section. CALCIUM LEVEL TOTAL AM 08/21/2021 Results for 3:54 AM CDT this procedure are in the results section. .GLOMERULAR FILTRATION RATE AM 08/21/2021 Results for 3:54 AM CDT this procedure are in the results section. SERUM CREATININE AM 08/21/2021 Results for 3:54 AM CDT this procedure are in the results section. ELECTROLYTE PANEL AM 08/21/2021 Results fo r 3:54 AM CDT this procedure are in the results section. BLOOD UREA NITROGEN AM 08/21/2021 Results for 3:54 AM CDT this procedure are in the results section. GLUCOSE LEVEL AM 08/21/2021 Results for 3:54 AM CDT this procedure are in the results section. HEPATIC FUNCTION PANEL AM 08/21/2021 3:54 AM CDT COMPLETE BLOOD COUNT W/ AM 08/21/2021 DIFFERENTIAL 3:54 AM CDT BASIC METABOLIC PANEL, AM 08/21/2021 CALCIUM TOTAL 3:54 AM CDT PHOSPHORUS LEVEL AM 08/21/2021 Results for 3:54 AM CDT this procedure are in the results section. MAGNESIUM LEVEL AM 08/21/2021 Results for 3:54 AM CDT this procedure are in the results section. 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 POC GLUCOSE SCREEN Routine 08/20/2021 Results f or 11:04 PM CDT this procedure are in the results section. POC GLUCOSE SCREEN Routine 08/20/2021 Results f or 5:40 PM CDT this procedure are in the results section. POC GLUCOSE SCREEN Routine 08/20/2021 Results f or 11:59 AM CDT this procedure are in the results section. FRACTIONATED BILIRUBIN Routine 08/20/2021 Resul ts for 9:47 AM CDT this procedure are in the results section. TOTAL PROTEIN Routine 08/20/2021 Results for 9:47 AM CDT this procedure are in the results section. ASPARTATE AMINOTRANSFERASE Routine 08/20/2021 R esults for 9:47 AM CDT this procedure are in the results section. ALANINE AMINOTRANSFERASE Routine 08/20/2021 Res ults for 9:47 AM CDT this procedure are in the results section. ALKALINE PHOSPHATASE Routine 08/20/2021 Results for 9:47 AM CDT this procedure are in the results section. ALBUMIN LEVEL Routine 08/20/2021 Results for 9:47 AM CDT this procedure are in the results section. CALCIUM LEVEL TOTAL Routine 08/20/2021 Results for 9:47 AM CDT this procedure are in the results section. .GLOMERULAR FILTRATION RATE Routine 08/20/2021 Results for 9:47 AM CDT this procedure are in the results section. SERUM CREATININE Routine 08/20/2021 Results for 9:47 AM CDT this procedure are in the results section. ELECTROLYTE PANEL Routine 08/20/2021 Results fo r 9:47 AM CDT this procedure are in the results section. BLOOD UREA NITROGEN Routine 08/20/2021 Results for 9:47 AM CDT this procedure are in the results section. GLUCOSE LEVEL Routine 08/20/2021 Results for 9:47 AM CDT this procedure are in the results section. COMPREHENSIVE METABOLIC Routine 08/20/2021 PANEL 9:47 AM CDT MANUAL DIFFERENTIAL Routine 08/20/2021 Results for 9:43 AM CDT this procedure are in the results section. Results CBC Routine 08/20/2021 Results for 9:43 AM CDT this procedure are in the results section. COMPLETE BLOOD COUNT W/ Routine 08/20/2021 DIFFERENTIAL 9:43 AM CDT POC GLUCOSE SCREEN Routine 08/20/2021 Results f or 8:00 AM CDT this procedure are in the results section. POC GLUCOSE SCREEN Routine 08/20/2021 Results f or 3:36 AM CDT this procedure are in the results section. CT ABDOMEN PELVIS W CONTRAST STAT 08/20/2021 Results for 1:55 AM CDT this procedure are in the results section. POC VENOUS BLOOD GAS + Routine 08/19/2021 Resul ts for LACTATE 11:00 PM CDT this procedure are in the results section. TMP INTERPRETATION ANTIBODY STAT 08/19/2021 Results for SCREEN NEGATIVE 10:35 PM CDT this procedure are in the results section. CLOT EXPIRATION DATE STAT 08/19/2021 Results for 10:35 PM CDT this procedure are in the results section. ANTIBODY SCREEN STAT 08/19/2021 Results for 10:35 PM CDT this procedure are in the results section. ABORH STAT 08/19/2021 Results for 10:35 PM CDT this procedure are in the results section. FRACTIONATED BILIRUBIN STAT 08/19/2021 Resul ts for 10:35 PM CDT this procedure are in the results section. TOTAL PROTEIN STAT 08/19/2021 Results for 10:35 PM CDT this procedure are in the results section. ASPARTATE AMINOTRANSFERASE STAT 08/19/2021 R esults for 10:35 PM CDT this procedure are in the results section. ALANINE AMINOTRANSFERASE STAT 08/19/2021 Res ults for 10:35 PM CDT this procedure are in the results section. ALKALINE PHOSPHATASE STAT 08/19/2021 Results for 10:35 PM CDT this procedure are in the results section. ALBUMIN LEVEL STAT 08/19/2021 Results for 10:35 PM CDT this procedure are in the results section. CALCIUM LEVEL TOTAL STAT 08/19/2021 Results for 10:35 PM CDT this procedure are in the results section. .GLOMERULAR FILTRATION RATE STAT 08/19/2021 Results for 10:35 PM CDT this procedure are in the results section. SERUM CREATININE STAT 08/19/2021 Results for 10:35 PM CDT this procedure are in the results section. ELECTROLYTE PANEL STAT 08/19/2021 Results fo r 10:35 PM CDT this procedure are in the results section. BLOOD UREA NITROGEN STAT 08/19/2021 Results for 10:35 PM CDT this procedure are in the results section. GLUCOSE LEVEL STAT 08/19/2021 Results for 10:35 PM CDT this procedure are in the results section. MANUAL DIFFERENTIAL STAT 08/19/2021 Results for 10:35 PM CDT this procedure are in the results section. Results CBC STAT 08/19/2021 Results for 10:35 PM CDT this procedure are in the results section. TYPE AND SCREEN STAT 08/19/2021 10:35 PM CDT APTT STAT 08/19/2021 Results for 10:35 PM CDT this procedure are in the results section. PROTHROMBIN TIME STAT 08/19/2021 Results for 10:35 PM CDT this procedure are in the results section. PHOSPHORUS LEVEL STAT 08/19/2021 Results for 10:35 PM CDT this procedure are in the results section. MAGNESIUM LEVEL STAT 08/19/2021 Results for 10:35 PM CDT this procedure are in the results section. COMPREHENSIVE METABOLIC STAT 08/19/2021 PANEL 10:35 PM CDT COMPLETE BLOOD COUNT W/ STAT 08/19/2021 DIFFERENTIAL 10:35 PM CDT URINALYSIS WITH MICROSCOPIC Now 08/19/2021 Results for IF INDICATED 10:35 PM CDT this procedure are in the results section. RESPIRATORY VIRAL PANEL + Now 08/19/2021 Re sults for COVID-19, NASOPHARYNGEAL 10:35 PM CDT thi s SWAB procedure are in the results section. URINE CULTURE STAT 08/19/2021 Results for 10:35 PM CDT this procedure are in the results section. BLOODCULTURE STAT 08/19/2021 Results for 10:35 PM CDT this procedure are in the results section. POTASSIUM LEVEL STAT 08/18/2021 Cholangiocarcinoma Result s for 3:30 PM CDT this procedure are in the results section. MANUAL DIFFERENTIAL Routine 08/18/2021 Cholangiocarcinoma Re sults for 9:25 AM CDT this procedure are in the results section. Results CBC Routine 08/18/2021 Cholangiocarcinoma Results f or 9:25 AM CDT this procedure are in the results section. FRACTIONATED BILIRUBIN Routine 08/18/2021 Cholangiocarcinoma Results for 9:25 AM CDT this procedure are in the results section. TOTAL PROTEIN Routine 08/18/2021 Cholangiocarcinoma Results for 9:25 AM CDT this procedure are in the results section. ASPARTATE AMINOTRANSFERASE Routine 08/18/2021 Cholangiocarci noma Results for 9:25 AM CDT this procedure are in the results section. ALANINE AMINOTRANSFERASE Routine 08/18/2021 Cholangiocarcino ma Results for 9:25 AM CDT this procedure are in the results section. ALKALINE PHOSPHATASE Routine 08/18/2021 Cholangiocarcinoma R esults for 9:25 AM CDT this procedure are in the results section. ALBUMIN LEVEL Routine 08/18/2021 Cholangiocarcinoma Results for 9:25 AM CDT this procedure are in the results section. CALCIUM LEVEL TOTAL Routine 08/18/2021 Cholangiocarcinoma Re sults for 9:25 AM CDT this procedure are in the results section. .GLOMERULAR FILTRATION RATE Routine 08/18/2021 Cholangiocarc inoma Results for 9:25 AM CDT this procedure are in the results section. SERUM CREATININE Routine 08/18/2021 Cholangiocarcinoma Resul ts for 9:25 AM CDT this procedure are in the results section. ELECTROLYTE PANEL Routine 08/18/2021 Cholangiocarcinoma Resu lts for 9:25 AM CDT this procedure are in the results section. BLOOD UREA NITROGEN Routine 08/18/2021 Cholangiocarcinoma Re sults for 9:25 AM CDT this procedure are in the results section. GLUCOSE LEVEL Routine 08/18/2021 Cholangiocarcinoma Results for 9:25 AM CDT this procedure are in the results section. COMPLETE BLOOD COUNT W/ Routine 08/18/2021 Cholangiocarcinom a DIFFERENTIAL 9:25 AM CDT CANCER ANTIGEN 19-9 Routine 08/18/2021 Cholangiocarcinoma Re sults for 9:25 AM CDT this procedure are in the results section. COMPREHENSIVE METABOLIC Routine 08/18/2021 Cholangiocarcinom a PANEL 9:25 AM CDT COVID-19 (SARS-COV-2) Routine 08/16/2021 Result s for PCR-ASYMPTOMATIC MC 9:44 AM CDT this procedure are in the results section. C DIFFICILE DNA ASSAY PATH Routine 08/10/2021 R esults for REVIEW 9:30 AM CDT this procedure are in the results section. C DIFFICILE DNA ASSAY Routine 08/10/2021 Cholangiocarcinoma Results for 9:30 AM CDT this procedure are in the results section. STOOL CULTURE Routine 08/10/2021 Cholangiocarcinoma Results for 9:14 AM CDT this procedure are in the results section. MANUAL DIFFERENTIAL Routine 08/10/2021 Cholangiocarcinoma Re sults for 7:43 AM CDT this procedure are in the results section. Results CBC Routine 08/10/2021 Cholangiocarcinoma Results f or 7:43 AM CDT this procedure are in the results section. FRACTIONATED BILIRUBIN Routine 08/10/2021 Cholangiocarcinoma Results for 7:43 AM CDT this procedure are in the results section. TOTAL PROTEIN Routine 08/10/2021 Cholangiocarcinoma Results for 7:43 AM CDT this procedure are in the results section. ASPARTATE AMINOTRANSFERASE Routine 08/10/2021 Cholangiocarci noma Results for 7:43 AM CDT this procedure are in the results section. ALANINE AMINOTRANSFERASE Routine 08/10/2021 Cholangiocarcino ma Results for 7:43 AM CDT this procedure are in the results section. ALKALINE PHOSPHATASE Routine 08/10/2021 Cholangiocarcinoma R esults for 7:43 AM CDT this procedure are in the results section. ALBUMIN LEVEL Routine 08/10/2021 Cholangiocarcinoma Results for 7:43 AM CDT this procedure are in the results section. CALCIUM LEVEL TOTAL Routine 08/10/2021 Cholangiocarcinoma Re sults for 7:43 AM CDT this procedure are in the results section. .GLOMERULAR FILTRATION RATE Routine 08/10/2021 Cholangiocarc inoma Results for 7:43 AM CDT this procedure are in the results section. SERUM CREATININE Routine 08/10/2021 Cholangiocarcinoma Resul ts for 7:43 AM CDT this procedure are in the results section. ELECTROLYTE PANEL Routine 08/10/2021 Cholangiocarcinoma Resu lts for 7:43 AM CDT this procedure are in the results section. BLOOD UREA NITROGEN Routine 08/10/2021 Cholangiocarcinoma Re sults for 7:43 AM CDT this procedure are in the results section. GLUCOSE LEVEL Routine 08/10/2021 Cholangiocarcinoma Results for 7:43 AM CDT this procedure are in the results section. COMPLETE BLOOD COUNT W/ Routine 08/10/2021 Cholangiocarcinom a DIFFERENTIAL 7:43 AM CDT CANCER ANTIGEN 19-9 Routine 08/10/2021 Cholangiocarcinoma Re sults for 7:43 AM CDT this procedure are in the results section. COMPREHENSIVE METABOLIC Routine 08/10/2021 Cholangiocarcinom a PANEL 7:43 AM CDT MANUAL DIFFERENTIAL Routine 07/27/2021 Cholangiocarcinoma Re sults for 7:41 AM CDT this procedure are in the results section. Results CBC Routine 07/27/2021 Cholangiocarcinoma Results f or 7:41 AM CDT this procedure are in the results section. FRACTIONATED BILIRUBIN Routine 07/27/2021 Cholangiocarcinoma Results for 7:41 AM CDT this procedure are in the results section. TOTAL PROTEIN Routine 07/27/2021 Cholangiocarcinoma Results for 7:41 AM CDT this procedure are in the results section. ASPARTATE AMINOTRANSFERASE Routine 07/27/2021 Cholangiocarci noma Results for 7:41 AM CDT this procedure are in the results section. ALANINE AMINOTRANSFERASE Routine 07/27/2021 Cholangiocarcino ma Results for 7:41 AM CDT this procedure are in the results section. ALKALINE PHOSPHATASE Routine 07/27/2021 Cholangiocarcinoma R esults for 7:41 AM CDT this procedure are in the results section. ALBUMIN LEVEL Routine 07/27/2021 Cholangiocarcinoma Results for 7:41 AM CDT this procedure are in the results section. CALCIUM LEVEL TOTAL Routine 07/27/2021 Cholangiocarcinoma Re sults for 7:41 AM CDT this procedure are in the results section. .GLOMERULAR FILTRATION RATE Routine 07/27/2021 Cholangiocarc inoma Results for 7:41 AM CDT this procedure are in the results section. SERUM CREATININE Routine 07/27/2021 Cholangiocarcinoma Resul ts for 7:41 AM CDT this procedure are in the results section. ELECTROLYTE PANEL Routine 07/27/2021 Cholangiocarcinoma Resu lts for 7:41 AM CDT this procedure are in the results section. BLOOD UREA NITROGEN Routine 07/27/2021 Cholangiocarcinoma Re sults for 7:41 AM CDT this procedure are in the results section. GLUCOSE LEVEL Routine 07/27/2021 Cholangiocarcinoma Results for 7:41 AM CDT this procedure are in the results section. COMPLETE BLOOD COUNT W/ Routine 07/27/2021 Cholangiocarcinom a DIFFERENTIAL 7:41 AM CDT CANCER ANTIGEN 19-9 Routine 07/27/2021 Cholangiocarcinoma Re sults for 7:41 AM CDT this procedure are in the results section. COMPREHENSIVE METABOLIC Routine 07/27/2021 Cholangiocarcinom a PANEL 7:41 AM CDT MANUAL DIFFERENTIAL AM 07/21/2021 Results for 3:44 AM CDT this procedure are in the results section. Results CBC AM 07/21/2021 Results for 3:44 AM CDT this procedure are in the results section. FRACTIONATED BILIRUBIN AM 07/21/2021 Resul ts for 3:44 AM CDT this procedure are in the results section. TOTAL PROTEIN AM 07/21/2021 Results for 3:44 AM CDT this procedure are in the results section. ASPARTATE AMINOTRANSFERASE AM 07/21/2021 R esults for 3:44 AM CDT this procedure are in the results section. ALANINE AMINOTRANSFERASE AM 07/21/2021 Res ults for 3:44 AM CDT this procedure are in the results section. ALKALINE PHOSPHATASE AM 07/21/2021 Results for 3:44 AM CDT this procedure are in the results section. ALBUMIN LEVEL AM 07/21/2021 Results for 3:44 AM CDT this procedure are in the results section. CALCIUM LEVEL TOTAL AM 07/21/2021 Results for 3:44 AM CDT this procedure are in the results section. .GLOMERULAR FILTRATION RATE AM 07/21/2021 Results for 3:44 AM CDT this procedure are in the results section. SERUM CREATININE AM 07/21/2021 Results for 3:44 AM CDT this procedure are in the results section. ELECTROLYTE PANEL AM 07/21/2021 Results fo r 3:44 AM CDT this procedure are in the results section. BLOOD UREA NITROGEN AM 07/21/2021 Results for 3:44 AM CDT this procedure are in the results section. GLUCOSE LEVEL AM 07/21/2021 Results for 3:44 AM CDT this procedure are in the results section. PHOSPHORUS LEVEL AM 07/21/2021 Results for 3:44 AM CDT this procedure are in the results section. MAGNESIUM LEVEL AM 07/21/2021 Results for 3:44 AM CDT this procedure are in the results section. COMPLETE BLOOD COUNT W/ AM 07/21/2021 DIFFERENTIAL 3:44 AM CDT COMPREHENSIVE METABOLIC AM 07/21/2021 PANEL 3:44 AM CDT FRACTIONATED BILIRUBIN STAT 07/20/2021 Resul ts for 8:55 AM CDT this procedure are in the results section. TOTAL PROTEIN STAT 07/20/2021 Results for 8:55 AM CDT this procedure are in the results section. ASPARTATE AMINOTRANSFERASE STAT 07/20/2021 R esults for 8:55 AM CDT this procedure are in the results section. ALANINE AMINOTRANSFERASE STAT 07/20/2021 Res ults for 8:55 AM CDT this procedure are in the results section. ALKALINE PHOSPHATASE STAT 07/20/2021 Results for 8:55 AM CDT this procedure are in the results section. ALBUMIN LEVEL STAT 07/20/2021 Results for 8:55 AM CDT this procedure are in the results section. CALCIUM LEVEL TOTAL STAT 07/20/2021 Results for 8:55 AM CDT this procedure are in the results section. .GLOMERULAR FILTRATION RATE STAT 07/20/2021 Results for 8:55 AM CDT this procedure are in the results section. SERUM CREATININE STAT 07/20/2021 Results for 8:55 AM CDT this procedure are in the results section. ELECTROLYTE PANEL STAT 07/20/2021 Results fo r 8:55 AM CDT this procedure are in the results section. BLOOD UREA NITROGEN STAT 07/20/2021 Results for 8:55 AM CDT this procedure are in the results section. GLUCOSE LEVEL STAT 07/20/2021 Results for 8:55 AM CDT this procedure are in the results section. COMPREHENSIVE METABOLIC STAT 07/20/2021 PANEL 8:55 AM CDT CALCIUM LEVEL TOTAL AM 07/20/2021 Results for 4:47 AM CDT this procedure are in the results section. .GLOMERULAR FILTRATION RATE AM 07/20/2021 Results for 4:47 AM CDT this procedure are in the results section. SERUM CREATININE AM 07/20/2021 Results for 4:47 AM CDT this procedure are in the results section. ELECTROLYTE PANEL AM 07/20/2021 Results fo r 4:47 AM CDT this procedure are in the results section. BLOOD UREA NITROGEN AM 07/20/2021 Results for 4:47 AM CDT this procedure are in the results section. GLUCOSE LEVEL AM 07/20/2021 Results for 4:47 AM CDT this procedure are in the results section. MANUAL DIFFERENTIAL AM 07/20/2021 Results for 4:47 AM CDT this procedure are in the results section. Results CBC AM 07/20/2021 Results for 4:47 AM CDT this procedure are in the results section. PHOSPHORUS LEVEL AM 07/20/2021 Results for 4:47 AM CDT this procedure are in the results section. MAGNESIUM LEVEL AM 07/20/2021 Results for 4:47 AM CDT this procedure are in the results section. BASIC METABOLIC PANEL, AM 07/20/2021 CALCIUM TOTAL 4:47 AM CDT COMPLETE BLOOD COUNT W/ AM 07/20/2021 DIFFERENTIAL 4:47 AM CDT POC GLUCOSE SCREEN Routine 07/19/2021 Results f or 4:28 PM CDT this procedure are in the results section. IR EXCHANGE OF BILIARY Routine 07/19/2021 Abdominal pain Res ults for [employer] 4:05 PM CDT this procedure are in the results section. POC GLUCOSE SCREEN Routine 07/19/2021 Results f or 2:15 PM CDT this procedure are in the results section. CT ABDOMEN PELVIS W CONTRAST STAT 07/19/2021 Results for 1:12 AM CDT this procedure are in the results section. APTT STAT 07/19/2021 Results for 12:25 AM CDT this procedure are in the results section. PROTHROMBIN TIME STAT 07/19/2021 Results for 12:25 AM CDT this procedure are in the results section. BLOODCULTURE Now 07/18/2021 Results for 11:02 PM CDT this procedure are in the results section. MANUAL DIFFERENTIAL Now 07/18/2021 Results for 10:34 PM CDT this procedure are in the results section. Results CBC STAT 07/18/2021 Results for 10:34 PM CDT this procedure are in the results section. FRACTIONATED BILIRUBIN Now 07/18/2021 Resul ts for 10:34 PM CDT this procedure are in the results section. TOTAL PROTEIN Now 07/18/2021 Results for 10:34 PM CDT this procedure are in the results section. ASPARTATE AMINOTRANSFERASE Now 07/18/2021 R esults for 10:34 PM CDT this procedure are in the results section. ALANINE AMINOTRANSFERASE Now 07/18/2021 Res ults for 10:34 PM CDT this procedure are in the results section. ALKALINE PHOSPHATASE Now 07/18/2021 Results for 10:34 PM CDT this procedure are in the results section. ALBUMIN LEVEL Now 07/18/2021 Results for 10:34 PM CDT this procedure are in the results section. CALCIUM LEVEL TOTAL Now 07/18/2021 Results for 10:34 PM CDT this procedure are in the results section. .GLOMERULAR FILTRATION RATE Now 07/18/2021 Results for 10:34 PM CDT this procedure are in the results section. SERUM CREATININE Now 07/18/2021 Results for 10:34 PM CDT this procedure are in the results section. ELECTROLYTE PANEL Now 07/18/2021 Results fo r 10:34 PM CDT this procedure are in the results section. BLOOD UREA NITROGEN Now 07/18/2021 Results for 10:34 PM CDT this procedure are in the results section. GLUCOSE LEVEL Now 07/18/2021 Results for 10:34 PM CDT this procedure are in the results section. LACTIC ACID, VENOUS STAT 07/18/2021 Results for 10:34 PM CDT this procedure are in the results section. COMPLETE BLOOD COUNT W/ Now 07/18/2021 DIFFERENTIAL 10:34 PM CDT COMPREHENSIVE METABOLIC Now 07/18/2021 PANEL 10:34 PM CDT PHOSPHORUS LEVEL Now 07/18/2021 Results for 10:34 PM CDT this procedure are in the results section. MAGNESIUM LEVEL Now 07/18/2021 Results for 10:34 PM CDT this procedure are in the results section. INFLUENZA A/B + COVID-19 Now 07/18/2021 Res ults for ASYMPTOMATIC-L 10:34 PM CDT this procedure are in the results section. BLOODCULTURE Now 07/18/2021 Results for 10:34 PM CDT this procedure are in the results section. POC GLUCOSE SCREEN Routine 07/14/2021 Results f or 1:24 PM CDT this procedure are in the results section. FRACTIONATED BILIRUBIN Routine 07/10/2021 Adenocarcinoma of Results for 8:10 AM CDT gallbladder and this extrahepatic biliary procedu re tract are in the results section. TOTAL PROTEIN Routine 07/10/2021 Adenocarcinoma of Results f or 8:10 AM CDT gallbladder and this extrahepatic biliary procedu re tract are in the results section. 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 ALANINE AMINOTRANSFERASE Routine 07/10/2021 Adenocarcinoma o f Results for 8:10 AM CDT gallbladder and this extrahepatic biliary procedu re tract are in the results section. ALKALINE PHOSPHATASE Routine 07/10/2021 Adenocarcinoma of Re sults for 8:10 AM CDT gallbladder and this extrahepatic biliary procedu re tract are in the results section. ALBUMIN LEVEL Routine 07/10/2021 Adenocarcinoma of Results f or 8:10 AM CDT gallbladder and this extrahepatic biliary procedu re tract are in the results section. CALCIUM LEVEL TOTAL Routine 07/10/2021 Adenocarcinoma of Res ults for 8:10 AM CDT gallbladder and this extrahepatic biliary procedu re tract are in the results section. .GLOMERULAR FILTRATION RATE Routine 07/10/2021 Adenocarcinom a of Results for 8:10 AM CDT gallbladder and this extrahepatic biliary procedu re tract are in the results section. SERUM CREATININE Routine 07/10/2021 Adenocarcinoma of Result s for 8:10 AM CDT gallbladder and this extrahepatic biliary procedu re tract are in the results section. ELECTROLYTE PANEL Routine 07/10/2021 Adenocarcinoma of Resul ts for 8:10 AM CDT gallbladder and this extrahepatic biliary procedu re tract are in the results section. BLOOD UREA NITROGEN Routine 07/10/2021 Adenocarcinoma of Res ults for 8:10 AM CDT gallbladder and this extrahepatic biliary procedu re tract are in the results section. GLUCOSE LEVEL Routine 07/10/2021 Adenocarcinoma of Results f or 8:10 AM CDT gallbladder and this extrahepatic biliary procedu re tract are in the results section. MANUAL DIFFERENTIAL Routine 07/10/2021 Adenocarcinoma of Res ults for 8:10 AM CDT gallbladder and this extrahepatic biliary procedu re tract are in the results section. Results CBC Routine 07/10/2021 Adenocarcinoma of Results fo r 8:10 AM CDT gallbladder and this extrahepatic biliary procedu re tract are in the results section. CANCER ANTIGEN 19-9 Routine 07/10/2021 Adenocarcinoma of Res ults for 8:10 AM CDT gallbladder and this extrahepatic biliary procedu re tract are in the results section. COMPREHENSIVE METABOLIC Routine 07/10/2021 Adenocarcinoma of PANEL 8:10 AM CDT gallbladder and extrahepatic biliary tract COMPLETE BLOOD COUNT W/ Routine 07/10/2021 Adenocarcinoma of DIFFERENTIAL 8:10 AM CDT gallbladder and extrahepatic biliary tract MANUAL DIFFERENTIAL AM 07/07/2021 Results for 2:12 AM CDT this procedure are in the results section. Results CBC AM 07/07/2021 Results for 2:12 AM CDT this procedure are in the results section. CALCIUM LEVEL TOTAL AM 07/07/2021 Results for 2:12 AM CDT this procedure are in the results section. .GLOMERULAR FILTRATION RATE AM 07/07/2021 Results for 2:12 AM CDT this procedure are in the results section. SERUM CREATININE AM 07/07/2021 Results for 2:12 AM CDT this procedure are in the results section. ELECTROLYTE PANEL AM 07/07/2021 Results fo r 2:12 AM CDT this procedure are in the results section. BLOOD UREA NITROGEN AM 07/07/2021 Results for 2:12 AM CDT this procedure are in the results section. GLUCOSE LEVEL AM 07/07/2021 Results for 2:12 AM CDT this procedure are in the results section. FRACTIONATED BILIRUBIN AM 07/07/2021 Resul ts for 2:12 AM CDT this procedure are in the results section. TOTAL PROTEIN AM 07/07/2021 Results for 2:12 AM CDT this procedure are in the results section. ASPARTATE AMINOTRANSFERASE AM 07/07/2021 R esults for 2:12 AM CDT this procedure are in the results section. ALANINE AMINOTRANSFERASE AM 07/07/2021 Res ults for 2:12 AM CDT this procedure are in the results section. ALKALINE PHOSPHATASE AM 07/07/2021 Results for 2:12 AM CDT this procedure are in the results section. ALBUMIN LEVEL AM 07/07/2021 Results for 2:12 AM CDT this procedure are in the results section. PHOSPHORUS LEVEL AM 07/07/2021 Results for 2:12 AM CDT this procedure are in the results section. MAGNESIUM LEVEL AM 07/07/2021 Results for 2:12 AM CDT this procedure are in the results section. COMPREHENSIVE METABOLIC AM 07/07/2021 PANEL 2:12 AM CDT COMPLETE BLOOD COUNT W/ AM 07/07/2021 DIFFERENTIAL 2:12 AM CDT HEPATIC FUNCTION PANEL AM 07/07/2021 2:12 AM CDT MANUAL DIFFERENTIAL AM 07/06/2021 Results for 4:06 AM CDT this procedure are in the results section. Results CBC AM 07/06/2021 Results for 4:06 AM CDT this procedure are in the results section. CALCIUM LEVEL TOTAL AM 07/06/2021 Results for 4:06 AM CDT this procedure are in the results section. .GLOMERULAR FILTRATION RATE AM 07/06/2021 Results for 4:06 AM CDT this procedure are in the results section. SERUM CREATININE AM 07/06/2021 Results for 4:06 AM CDT this procedure are in the results section. ELECTROLYTE PANEL AM 07/06/2021 Results fo r 4:06 AM CDT this procedure are in the results section. BLOOD UREA NITROGEN AM 07/06/2021 Results for 4:06 AM CDT this procedure are in the results section. GLUCOSE LEVEL AM 07/06/2021 Results for 4:06 AM CDT this procedure are in the results section. FRACTIONATED BILIRUBIN AM 07/06/2021 Resul ts for 4:06 AM CDT this procedure are in the results section. TOTAL PROTEIN AM 07/06/2021 Results for 4:06 AM CDT this procedure are in the results section. ASPARTATE AMINOTRANSFERASE AM 07/06/2021 R esults for 4:06 AM CDT this procedure are in the results section. ALANINE AMINOTRANSFERASE AM 07/06/2021 Res ults for 4:06 AM CDT this procedure are in the results section. ALKALINE PHOSPHATASE AM 07/06/2021 Results for 4:06 AM CDT this procedure are in the results section. ALBUMIN LEVEL AM 07/06/2021 Results for 4:06 AM CDT this procedure are in the results section. PHOSPHORUS LEVEL AM 07/06/2021 Results for 4:06 AM CDT this procedure are in the results section. MAGNESIUM LEVEL AM 07/06/2021 Results for 4:06 AM CDT this procedure are in the results section. COMPREHENSIVE METABOLIC AM 07/06/2021 PANEL 4:06 AM CDT COMPLETE BLOOD COUNT W/ AM 07/06/2021 DIFFERENTIAL 4:06 AM CDT HEPATIC FUNCTION PANEL AM 07/06/2021 4:06 AM CDT MANUAL DIFFERENTIAL AM 07/05/2021 Results for 2:38 AM CDT this procedure are in the results section. Results CBC AM 07/05/2021 Results for 2:38 AM CDT this procedure are in the results section. CALCIUM LEVEL TOTAL AM 07/05/2021 Results for 2:38 AM CDT this procedure are in the results section. .GLOMERULAR FILTRATION RATE AM 07/05/2021 Results for 2:38 AM CDT this procedure are in the results section. SERUM CREATININE AM 07/05/2021 Results for 2:38 AM CDT this procedure are in the results section. ELECTROLYTE PANEL AM 07/05/2021 Results fo r 2:38 AM CDT this procedure are in the results section. BLOOD UREA NITROGEN AM 07/05/2021 Results for 2:38 AM CDT this procedure are in the results section. GLUCOSE LEVEL AM 07/05/2021 Results for 2:38 AM CDT this procedure are in the results section. FRACTIONATED BILIRUBIN AM 07/05/2021 Resul ts for 2:38 AM CDT this procedure are in the results section. TOTAL PROTEIN AM 07/05/2021 Results for 2:38 AM CDT this procedure are in the results section. ASPARTATE AMINOTRANSFERASE AM 07/05/2021 R esults for 2:38 AM CDT this procedure are in the results section. ALANINE AMINOTRANSFERASE AM 07/05/2021 Res ults for 2:38 AM CDT this procedure are in the results section. ALKALINE PHOSPHATASE AM 07/05/2021 Results for 2:38 AM CDT this procedure are in the results section. ALBUMIN LEVEL AM 07/05/2021 Results for 2:38 AM CDT this procedure are in the results section. PHOSPHORUS LEVEL AM 07/05/2021 Results for 2:38 AM CDT this procedure are in the results section. MAGNESIUM LEVEL AM 07/05/2021 Results for 2:38 AM CDT this procedure are in the results section. COMPREHENSIVE METABOLIC AM 07/05/2021 PANEL 2:38 AM CDT COMPLETE BLOOD COUNT W/ AM 07/05/2021 DIFFERENTIAL 2:38 AM CDT HEPATIC FUNCTION PANEL AM 07/05/2021 2:38 AM CDT GENERAL LABORATORY ADD ON Now 07/04/2021 Re sults for TEST 8:37 AM CDT this procedure are in the results section. CANCER ANTIGEN 19-9 AM 07/04/2021 Results for 2:25 AM CDT this procedure are in the results section. MANUAL DIFFERENTIAL AM 07/04/2021 Results for 2:25 AM CDT this procedure are in the results section. Results CBC AM 07/04/2021 Results for 2:25 AM CDT this procedure are in the results section. CALCIUM LEVEL TOTAL AM 07/04/2021 Results for 2:25 AM CDT this procedure are in the results section. .GLOMERULAR FILTRATION RATE AM 07/04/2021 Results for 2:25 AM CDT this procedure are in the results section. SERUM CREATININE AM 07/04/2021 Results for 2:25 AM CDT this procedure are in the results section. ELECTROLYTE PANEL AM 07/04/2021 Results fo r 2:25 AM CDT this procedure are in the results section. BLOOD UREA NITROGEN AM 07/04/2021 Results for 2:25 AM CDT this procedure are in the results section. GLUCOSE LEVEL AM 07/04/2021 Results for 2:25 AM CDT this procedure are in the results section. FRACTIONATED BILIRUBIN AM 07/04/2021 Resul ts for 2:25 AM CDT this procedure are in the results section. TOTAL PROTEIN AM 07/04/2021 Results for 2:25 AM CDT this procedure are in the results section. ASPARTATE AMINOTRANSFERASE AM 07/04/2021 R esults for 2:25 AM CDT this procedure are in the results section. ALANINE AMINOTRANSFERASE AM 07/04/2021 Res ults for 2:25 AM CDT this procedure are in the results section. ALKALINE PHOSPHATASE AM 07/04/2021 Results for 2:25 AM CDT this procedure are in the results section. ALBUMIN LEVEL AM 07/04/2021 Results for 2:25 AM CDT this procedure are in the results section. PHOSPHORUS LEVEL AM 07/04/2021 Results for 2:25 AM CDT this procedure are in the results section. MAGNESIUM LEVEL AM 07/04/2021 Results for 2:25 AM CDT this procedure are in the results section. COMPREHENSIVE METABOLIC AM 07/04/2021 PANEL 2:25 AM CDT COMPLETE BLOOD COUNT W/ AM 07/04/2021 DIFFERENTIAL 2:25 AM CDT HEPATIC FUNCTION PANEL AM 07/04/2021 2:25 AM CDT MANUAL DIFFERENTIAL AM 07/03/2021 Results for 4:44 AM CDT this procedure are in the results section. Results CBC AM 07/03/2021 Results for 4:44 AM CDT this procedure are in the results section. CALCIUM LEVEL TOTAL AM 07/03/2021 Results for 4:44 AM CDT this procedure are in the results section. .GLOMERULAR FILTRATION RATE AM 07/03/2021 Results for 4:44 AM CDT this procedure are in the results section. SERUM CREATININE AM 07/03/2021 Results for 4:44 AM CDT this procedure are in the results section. ELECTROLYTE PANEL AM 07/03/2021 Results fo r 4:44 AM CDT this procedure are in the results section. BLOOD UREA NITROGEN AM 07/03/2021 Results for 4:44 AM CDT this procedure are in the results section. GLUCOSE LEVEL AM 07/03/2021 Results for 4:44 AM CDT this procedure are in the results section. FRACTIONATED BILIRUBIN AM 07/03/2021 Resul ts for 4:44 AM CDT this procedure are in the results section. TOTAL PROTEIN AM 07/03/2021 Results for 4:44 AM CDT this procedure are in the results section. ASPARTATE AMINOTRANSFERASE AM 07/03/2021 R esults for 4:44 AM CDT this procedure are in the results section. ALANINE AMINOTRANSFERASE AM 07/03/2021 Res ults for 4:44 AM CDT this procedure are in the results section. ALKALINE PHOSPHATASE AM 07/03/2021 Results for 4:44 AM CDT this procedure are in the results section. ALBUMIN LEVEL AM 07/03/2021 Results for 4:44 AM CDT this procedure are in the results section. PHOSPHORUS LEVEL AM 07/03/2021 Results for 4:44 AM CDT this procedure are in the results section. MAGNESIUM LEVEL AM 07/03/2021 Results for 4:44 AM CDT this procedure are in the results section. COMPREHENSIVE METABOLIC AM 07/03/2021 PANEL 4:44 AM CDT COMPLETE BLOOD COUNT W/ AM 07/03/2021 DIFFERENTIAL 4:44 AM CDT HEPATIC FUNCTION PANEL AM 07/03/2021 4:44 AM CDT MANUAL DIFFERENTIAL AM 07/02/2021 Results for 2:26 AM CDT this procedure are in the results section. Results CBC AM 07/02/2021 Results for 2:26 AM CDT this procedure are in the results section. CALCIUM LEVEL TOTAL AM 07/02/2021 Results for 2:26 AM CDT this procedure are in the results section. .GLOMERULAR FILTRATION RATE AM 07/02/2021 Results for 2:26 AM CDT this procedure are in the results section. SERUM CREATININE AM 07/02/2021 Results for 2:26 AM CDT this procedure are in the results section. ELECTROLYTE PANEL AM 07/02/2021 Results fo r 2:26 AM CDT this procedure are in the results section. BLOOD UREA NITROGEN AM 07/02/2021 Results for 2:26 AM CDT this procedure are in the results section. GLUCOSE LEVEL AM 07/02/2021 Results for 2:26 AM CDT this procedure are in the results section. FRACTIONATED BILIRUBIN AM 07/02/2021 Resul ts for 2:26 AM CDT this procedure are in the results section. TOTAL PROTEIN AM 07/02/2021 Results for 2:26 AM CDT this procedure are in the results section. ASPARTATE AMINOTRANSFERASE AM 07/02/2021 R esults for 2:26 AM CDT this procedure are in the results section. ALANINE AMINOTRANSFERASE AM 07/02/2021 Res ults for 2:26 AM CDT this procedure are in the results section. ALKALINE PHOSPHATASE AM 07/02/2021 Results for 2:26 AM CDT this procedure are in the results section. ALBUMIN LEVEL AM 07/02/2021 Results for 2:26 AM CDT this procedure are in the results section. PHOSPHORUS LEVEL AM 07/02/2021 Results for 2:26 AM CDT this procedure are in the results section. MAGNESIUM LEVEL AM 07/02/2021 Results for 2:26 AM CDT this procedure are in the results section. COMPREHENSIVE METABOLIC AM 07/02/2021 PANEL 2:26 AM CDT COMPLETE BLOOD COUNT W/ AM 07/02/2021 DIFFERENTIAL 2:26 AM CDT HEPATIC FUNCTION PANEL AM 07/02/2021 2:[address] ABDOMEN W CONTRAST Routine 07/01/2021 Result s for 1:50 PM CDT this procedure are in the results section. MANUAL DIFFERENTIAL AM 07/01/2021 Results for 12:42 AM CDT this procedure are in the results section. Results CBC AM 07/01/2021 Results for 12:42 AM CDT this procedure are in the results section. CALCIUM LEVEL TOTAL AM 07/01/2021 Results for 12:42 AM CDT this procedure are in the results section. .GLOMERULAR FILTRATION RATE AM 07/01/2021 Results for 12:42 AM CDT this procedure are in the results section. SERUM CREATININE AM 07/01/2021 Results for 12:42 AM CDT this procedure are in the results section. ELECTROLYTE PANEL AM 07/01/2021 Results fo r 12:42 AM CDT this procedure are in the results section. BLOOD UREA NITROGEN AM 07/01/2021 Results for 12:42 AM CDT this procedure are in the results section. GLUCOSE LEVEL AM 07/01/2021 Results for 12:42 AM CDT this procedure are in the results section. FRACTIONATED BILIRUBIN AM 07/01/2021 Resul ts for 12:42 AM CDT this procedure are in the results section. TOTAL PROTEIN AM 07/01/2021 Results for 12:42 AM CDT this procedure are in the results section. ASPARTATE AMINOTRANSFERASE AM 07/01/2021 R esults for 12:42 AM CDT this procedure are in the results section. ALANINE AMINOTRANSFERASE AM 07/01/2021 Res ults for 12:42 AM CDT this procedure are in the results section. ALKALINE PHOSPHATASE AM 07/01/2021 Results for 12:42 AM CDT this procedure are in the results section. ALBUMIN LEVEL AM 07/01/2021 Results for 12:42 AM CDT this procedure are in the results section. PHOSPHORUS LEVEL AM 07/01/2021 Results for 12:42 AM CDT this procedure are in the results section. MAGNESIUM LEVEL AM 07/01/2021 Results for 12:42 AM CDT this procedure are in the results section. COMPREHENSIVE METABOLIC AM 07/01/2021 PANEL 12:42 AM CDT COMPLETE BLOOD COUNT W/ AM 07/01/2021 DIFFERENTIAL 12:42 AM CDT HEPATIC FUNCTION PANEL AM 07/01/2021 12:42 AM CDT MANUAL DIFFERENTIAL AM 06/30/2021 Results for 3:51 AM CDT this procedure are in the results section. Results CBC AM 06/30/2021 Results for 3:51 AM CDT this procedure are in the results section. CALCIUM LEVEL TOTAL AM 06/30/2021 Results for 3:51 AM CDT this procedure are in the results section. .GLOMERULAR FILTRATION RATE AM 06/30/2021 Results for 3:51 AM CDT this procedure are in the results section. SERUM CREATININE AM 06/30/2021 Results for 3:51 AM CDT this procedure are in the results section. ELECTROLYTE PANEL AM 06/30/2021 Results fo r 3:51 AM CDT this procedure are in the results section. BLOOD UREA NITROGEN AM 06/30/2021 Results for 3:51 AM CDT this procedure are in the results section. GLUCOSE LEVEL AM 06/30/2021 Results for 3:51 AM CDT this procedure are in the results section. FRACTIONATED BILIRUBIN AM 06/30/2021 Resul ts for 3:51 AM CDT this procedure are in the results section. TOTAL PROTEIN AM 06/30/2021 Results for 3:51 AM CDT this procedure are in the results section. ASPARTATE AMINOTRANSFERASE AM 06/30/2021 R esults for 3:51 AM CDT this procedure are in the results section. ALANINE AMINOTRANSFERASE AM 06/30/2021 Res ults for 3:51 AM CDT this procedure are in the results section. ALKALINE PHOSPHATASE AM 06/30/2021 Results for 3:51 AM CDT this procedure are in the results section. ALBUMIN LEVEL AM 06/30/2021 Results for 3:51 AM CDT this procedure are in the results section. PHOSPHORUS LEVEL AM 06/30/2021 Results for 3:51 AM CDT this procedure are in the results section. MAGNESIUM LEVEL AM 06/30/2021 Results for 3:51 AM CDT this procedure are in the results section. COMPREHENSIVE METABOLIC AM 06/30/2021 PANEL 3:51 AM CDT COMPLETE BLOOD COUNT W/ AM 06/30/2021 DIFFERENTIAL 3:51 AM CDT HEPATIC FUNCTION PANEL AM 06/30/2021 3:51 AM CDT MANUAL DIFFERENTIAL AM 06/29/2021 Results for 3:51 AM CDT this procedure are in the results section. Results CBC AM 06/29/2021 Results for 3:51 AM CDT this procedure are in the results section. CALCIUM LEVEL TOTAL AM 06/29/2021 Results for 3:51 AM CDT this procedure are in the results section. .GLOMERULAR FILTRATION RATE AM 06/29/2021 Results for 3:51 AM CDT this procedure are in the results section. SERUM CREATININE AM 06/29/2021 Results for 3:51 AM CDT this procedure are in the results section. ELECTROLYTE PANEL AM 06/29/2021 Results fo r 3:51 AM CDT this procedure are in the results section. BLOOD UREA NITROGEN AM 06/29/2021 Results for 3:51 AM CDT this procedure are in the results section. GLUCOSE LEVEL AM 06/29/2021 Results for 3:51 AM CDT this procedure are in the results section. FRACTIONATED BILIRUBIN AM 06/29/2021 Resul ts for 3:51 AM CDT this procedure are in the results section. TOTAL PROTEIN AM 06/29/2021 Results for 3:51 AM CDT this procedure are in the results section. ASPARTATE AMINOTRANSFERASE AM 06/29/2021 R esults for 3:51 AM CDT this procedure are in the results section. ALANINE AMINOTRANSFERASE AM 06/29/2021 Res ults for 3:51 AM CDT this procedure are in the results section. ALKALINE PHOSPHATASE AM 06/29/2021 Results for 3:51 AM CDT this procedure are in the results section. ALBUMIN LEVEL AM 06/29/2021 Results for 3:51 AM CDT this procedure are in the results section. PHOSPHORUS LEVEL AM 06/29/2021 Results for 3:51 AM CDT this procedure are in the results section. MAGNESIUM LEVEL AM 06/29/2021 Results for 3:51 AM CDT this procedure are in the results section. COMPREHENSIVE METABOLIC AM 06/29/2021 PANEL 3:51 AM CDT COMPLETE BLOOD COUNT W/ AM 06/29/2021 DIFFERENTIAL 3:51 AM CDT HEPATIC FUNCTION PANEL AM 06/29/2021 3:51 AM CDT MANUAL DIFFERENTIAL AM 06/28/2021 Results for 3:00 AM CDT this procedure are in the results section. Results CBC AM 06/28/2021 Results for 3:00 AM CDT this procedure are in the results section. CALCIUM LEVEL TOTAL AM 06/28/2021 Results for 3:00 AM CDT this procedure are in the results section. .GLOMERULAR FILTRATION RATE AM 06/28/2021 Results for 3:00 AM CDT this procedure are in the results section. SERUM CREATININE AM 06/28/2021 Results for 3:00 AM CDT this procedure are in the results section. ELECTROLYTE PANEL AM 06/28/2021 Results fo r 3:00 AM CDT this procedure are in the results section. BLOOD UREA NITROGEN AM 06/28/2021 Results for 3:00 AM CDT this procedure are in the results section. GLUCOSE LEVEL AM 06/28/2021 Results for 3:00 AM CDT this procedure are in the results section. FRACTIONATED BILIRUBIN AM 06/28/2021 Resul ts for 3:00 AM CDT this procedure are in the results section. TOTAL PROTEIN AM 06/28/2021 Results for 3:00 AM CDT this procedure are in the results section. ASPARTATE AMINOTRANSFERASE AM 06/28/2021 R esults for 3:00 AM CDT this procedure are in the results section. ALANINE AMINOTRANSFERASE AM 06/28/2021 Res ults for 3:00 AM CDT this procedure are in the results section. ALKALINE PHOSPHATASE AM 06/28/2021 Results for 3:00 AM CDT this procedure are in the results section. ALBUMIN LEVEL AM 06/28/2021 Results for 3:00 AM CDT this procedure are in the results section. PHOSPHORUS LEVEL AM 06/28/2021 Results for 3:00 AM CDT this procedure are in the results section. MAGNESIUM LEVEL AM 06/28/2021 Results for 3:00 AM CDT this procedure are in the results section. COMPREHENSIVE METABOLIC AM 06/28/2021 PANEL 3:00 AM CDT COMPLETE BLOOD COUNT W/ AM 06/28/2021 DIFFERENTIAL 3:00 AM CDT HEPATIC FUNCTION PANEL AM 06/28/2021 3:00 AM CDT POC GLUCOSE SCREEN Routine 06/27/2021 Results f or 7:35 PM CDT this procedure are in the results section. IR PLACEMENT BILIARY Routine 06/27/2021 Cholangiocarcinoma R esults for DRAINAGE CATHETER 7:25 PM CDT this (INTERNAL-EXTERNAL) 90 proce dure are in the results section. DIAGNOSTIC ENDOSCOPIC 06/27/2021 Cholangiocarcinoma RETROGRADE 6:30 PM CDT CHOLANGIOPANCREATOGRAPHY TRANSFUSE RED BLOOD CELLS Routine 06/27/2021 6:30 PM CDT PREPARE RBC Routine 06/27/2021 Results for 6:23 PM CDT this procedure are in the results section. PREPARE RBC Routine 06/27/2021 Results for 6:23 PM CDT this procedure are in the results section. POC GLUCOSE SCREEN Routine 06/27/2021 Results f or 5:45 PM CDT this procedure are in the results section. POC GLUCOSE SCREEN Routine 06/27/2021 Results f or 5:01 PM CDT this procedure are in the results section. TMP CROSSMATCH STAT 06/27/2021 Results for INTERPRETATION 4:41 PM CDT this procedure are in the results section. TMP INTERPRETATION ANTIBODY STAT 06/27/2021 Results for SCREEN NEGATIVE 4:41 PM CDT this procedure are in the results section. CLOT EXPIRATION DATE STAT 06/27/2021 Results for 4:41 PM CDT this procedure are in the results section. ANTIBODY SCREEN STAT 06/27/2021 Results for 4:41 PM CDT this procedure are in the results section. ABORH STAT 06/27/2021 Results for 4:41 PM CDT this procedure are in the results section. TYPE AND SCREEN STAT 06/27/2021 4:41 PM CDT POC GLUCOSE SCREEN Routine 06/27/2021 Results f or 4:33 PM CDT this procedure are in the results section. ENDOSCOPY NOTE RESULTS 06/27/2021 Resul ts for 3:46 PM CDT this procedure are in the results section. MANUAL DIFFERENTIAL AM 06/27/2021 Results for 3:02 AM CDT this procedure are in the results section. Results CBC AM 06/27/2021 Results for 3:02 AM CDT this procedure are in the results section. CALCIUM LEVEL TOTAL AM 06/27/2021 Results for 3:02 AM CDT this procedure are in the results section. .GLOMERULAR FILTRATION RATE AM 06/27/2021 Results for 3:02 AM CDT this procedure are in the results section. SERUM CREATININE AM 06/27/2021 Results for 3:02 AM CDT this procedure are in the results section. ELECTROLYTE PANEL AM 06/27/2021 Results fo r 3:02 AM CDT this procedure are in the results section. BLOOD UREA NITROGEN AM 06/27/2021 Results for 3:02 AM CDT this procedure are in the results section. GLUCOSE LEVEL AM 06/27/2021 Results for 3:02 AM CDT this procedure are in the results section. FRACTIONATED BILIRUBIN AM 06/27/2021 Resul ts for 3:02 AM CDT this procedure are in the results section. TOTAL PROTEIN AM 06/27/2021 Results for 3:02 AM CDT this procedure are in the results section. ASPARTATE AMINOTRANSFERASE AM 06/27/2021 R esults for 3:02 AM CDT this procedure are in the results section. ALANINE AMINOTRANSFERASE AM 06/27/2021 Res ults for 3:02 AM CDT this procedure are in the results section. ALKALINE PHOSPHATASE AM 06/27/2021 Results for 3:02 AM CDT this procedure are in the results section. ALBUMIN LEVEL AM 06/27/2021 Results for 3:02 AM CDT this procedure are in the results section. PHOSPHORUS LEVEL AM 06/27/2021 Results for 3:02 AM CDT this procedure are in the results section. MAGNESIUM LEVEL AM 06/27/2021 Results for 3:02 AM CDT this procedure are in the results section. COMPREHENSIVE METABOLIC AM 06/27/2021 PANEL 3:02 AM CDT COMPLETE BLOOD COUNT W/ AM 06/27/2021 DIFFERENTIAL 3:02 AM CDT HEPATIC FUNCTION PANEL AM 06/27/2021 3:02 AM CDT MANUAL DIFFERENTIAL AM 06/26/2021 Results for 3:10 AM CDT this procedure are in the results section. Results CBC AM 06/26/2021 Results for 3:10 AM CDT this procedure are in the results section. CALCIUM LEVEL TOTAL AM 06/26/2021 Results for 3:10 AM CDT this procedure are in the results section. .GLOMERULAR FILTRATION RATE AM 06/26/2021 Results for 3:10 AM CDT this procedure are in the results section. SERUM CREATININE AM 06/26/2021 Results for 3:10 AM CDT this procedure are in the results section. ELECTROLYTE PANEL AM 06/26/2021 Results fo r 3:10 AM CDT this procedure are in the results section. BLOOD UREA NITROGEN AM 06/26/2021 Results for 3:10 AM CDT this procedure are in the results section. GLUCOSE LEVEL AM 06/26/2021 Results for 3:10 AM CDT this procedure are in the results section. FRACTIONATED BILIRUBIN AM 06/26/2021 Resul ts for 3:10 AM CDT this procedure are in the results section. TOTAL PROTEIN AM 06/26/2021 Results for 3:10 AM CDT this procedure are in the results section. ASPARTATE AMINOTRANSFERASE AM 06/26/2021 R esults for 3:10 AM CDT this procedure are in the results section. ALANINE AMINOTRANSFERASE AM 06/26/2021 Res ults for 3:10 AM CDT this procedure are in the results section. ALKALINE PHOSPHATASE AM 06/26/2021 Results for 3:10 AM CDT this procedure are in the results section. ALBUMIN LEVEL AM 06/26/2021 Results for 3:10 AM CDT this procedure are in the results section. PHOSPHORUS LEVEL AM 06/26/2021 Results for 3:10 AM CDT this procedure are in the results section. MAGNESIUM LEVEL AM 06/26/2021 Results for 3:10 AM CDT this procedure are in the results section. COMPREHENSIVE METABOLIC AM 06/26/2021 PANEL 3:10 AM CDT COMPLETE BLOOD COUNT W/ AM 06/26/2021 DIFFERENTIAL 3:10 AM CDT HEPATIC FUNCTION PANEL AM 06/26/2021 3:[address] HEAD WO CONTRAST Routine 06/25/2021 Results for 11:15 AM CDT this procedure are in the results section. BLOODCULTURE Now 06/25/2021 Results for 8:46 AM CDT this procedure are in the results section. FRACTIONATED BILIRUBIN AM 06/25/2021 Resul ts for 3:31 AM CDT this procedure are in the results section. TOTAL PROTEIN AM 06/25/2021 Results for 3:31 AM CDT this procedure are in the results section. ASPARTATE AMINOTRANSFERASE AM 06/25/2021 R esults for 3:31 AM CDT this procedure are in the results section. ALANINE AMINOTRANSFERASE AM 06/25/2021 Res ults for 3:31 AM CDT this procedure are in the results section. ALKALINE PHOSPHATASE AM 06/25/2021 Results for 3:31 AM CDT this procedure are in the results section. ALBUMIN LEVEL AM 06/25/2021 Results for 3:31 AM CDT this procedure are in the results section. HEPATIC FUNCTION PANEL AM 06/25/2021 3:31 AM CDT FRACTIONATED BILIRUBIN AM 06/24/2021 Resul ts for 3:14 AM CDT this procedure are in the results section. TOTAL PROTEIN AM 06/24/2021 Results for 3:14 AM CDT this procedure are in the results section. ASPARTATE AMINOTRANSFERASE AM 06/24/2021 R esults for 3:14 AM CDT this procedure are in the results section. ALANINE AMINOTRANSFERASE AM 06/24/2021 Res ults for 3:14 AM CDT this procedure are in the results section. ALKALINE PHOSPHATASE AM 06/24/2021 Results for 3:14 AM CDT this procedure are in the results section. ALBUMIN LEVEL AM 06/24/2021 Results for 3:14 AM CDT this procedure are in the results section. HEPATIC FUNCTION PANEL AM 06/24/2021 3:14 AM CDT XR ABDOMEN 1 VW PORTABLE Routine 06/23/2021 Res ults for 7:20 PM CDT this procedure are in the results section. URINALYSIS MICROSCOPIC Routine 06/23/2021 Resul ts for 3:44 AM CDT this procedure are in the results section. URINALYSIS WITH MICROSCOPIC Now 06/23/2021 Results for IF INDICATED 3:44 AM CDT this procedure are in the results section. URINE CULTURE Now 06/23/2021 Results for 3:44 AM CDT this procedure are in the results section. FRACTIONATED BILIRUBIN AM 06/23/2021 Resul ts for 3:08 AM CDT this procedure are in the results section. TOTAL PROTEIN AM 06/23/2021 Results for 3:08 AM CDT this procedure are in the results section. ASPARTATE AMINOTRANSFERASE AM 06/23/2021 R esults for 3:08 AM CDT this procedure are in the results section. ALANINE AMINOTRANSFERASE AM 06/23/2021 Res ults for 3:08 AM CDT this procedure are in the results section. ALKALINE PHOSPHATASE AM 06/23/2021 Results for 3:08 AM CDT this procedure are in the results section. ALBUMIN LEVEL AM 06/23/2021 Results for 3:08 AM CDT this procedure are in the results section. CALCIUM LEVEL TOTAL AM 06/23/2021 Results for 3:08 AM CDT this procedure are in the results section. .GLOMERULAR FILTRATION RATE AM 06/23/2021 Results for 3:08 AM CDT this procedure are in the results section. SERUM CREATININE AM 06/23/2021 Results for 3:08 AM CDT this procedure are in the results section. ELECTROLYTE PANEL AM 06/23/2021 Results fo r 3:08 AM CDT this procedure are in the results section. BLOOD UREA NITROGEN AM 06/23/2021 Results for 3:08 AM CDT this procedure are in the results section. GLUCOSE LEVEL AM 06/23/2021 Results for 3:08 AM CDT this procedure are in the results section. MANUAL DIFFERENTIAL AM 06/23/2021 Results for 3:08 AM CDT this procedure are in the results section. Results CBC AM 06/23/2021 Results for 3:08 AM CDT this procedure are in the results section. HEPATIC FUNCTION PANEL AM 06/23/2021 3:08 AM CDT PHOSPHORUS LEVEL AM 06/23/2021 Results for 3:08 AM CDT this procedure are in the results section. MAGNESIUM LEVEL AM 06/23/2021 Results for 3:08 AM CDT this procedure are in the results section. BASIC METABOLIC PANEL, AM 06/23/2021 CALCIUM TOTAL 3:08 AM CDT COMPLETE BLOOD COUNT W/ AM 06/23/2021 DIFFERENTIAL 3:08 AM CDT IR EXCHANGE OF BILIARY Routine 06/22/2021 Obstructive Resul ts for DRAINAGE CATHETER 6:26 PM CDT hyperbilirubinemia this procedure are in the results section. POC GLUCOSE SCREEN Routine 06/22/2021 Results f or 4:04 PM CDT this procedure are in the results section. SEDIMENTATION RATE Routine 06/22/2021 Results f or NON-AUTOMATED 2:40 PM CDT this procedure are in the results section. GENERAL LABORATORY ADD ON STAT 06/22/2021 Re sults for TEST 10:53 AM CDT this procedure are in the results section. POC VENOUS BLOOD GAS + Routine 06/22/2021 Resul ts for LACTATE 7:45 AM CDT this procedure are in the results section. CT ABDOMEN PELVIS W CONTRAST Routine 06/22/2021 Results for 7:30 AM CDT this procedure are in the results section. FERRITIN LVL Now 06/22/2021 Results for 6:18 AM CDT this procedure are in the results section. PROCALCITONIN Now 06/22/2021 Results for 6:18 AM CDT this procedure are in the results section. C REACTIVE PROTEIN Now 06/22/2021 Results f or 6:18 AM CDT this procedure are in the results section. FRACTIONATED BILIRUBIN Now 06/22/2021 Resul ts for 6:18 AM CDT this procedure are in the results section. TOTAL PROTEIN Now 06/22/2021 Results for 6:18 AM CDT this procedure are in the results section. ASPARTATE AMINOTRANSFERASE Now 06/22/2021 R esults for 6:18 AM CDT this procedure are in the results section. ALANINE AMINOTRANSFERASE Now 06/22/2021 Res ults for 6:18 AM CDT this procedure are in the results section. ALKALINE PHOSPHATASE Now 06/22/2021 Results for 6:18 AM CDT this procedure are in the results section. ALBUMIN LEVEL Now 06/22/2021 Results for 6:18 AM CDT this procedure are in the results section. CALCIUM LEVEL TOTAL Now 06/22/2021 Results for 6:18 AM CDT this procedure are in the results section. .GLOMERULAR FILTRATION RATE Now 06/22/2021 Results for 6:18 AM CDT this procedure are in the results section. SERUM CREATININE Now 06/22/2021 Results for 6:18 AM CDT this procedure are in the results section. ELECTROLYTE PANEL Now 06/22/2021 Results fo r 6:18 AM CDT this procedure are in the results section. BLOOD UREA NITROGEN Now 06/22/2021 Results for 6:18 AM CDT this procedure are in the results section. GLUCOSE LEVEL Now 06/22/2021 Results for 6:18 AM CDT this procedure are in the results section. MANUAL DIFFERENTIAL STAT 06/22/2021 Results for 6:18 AM CDT this procedure are in the results section. Results CBC STAT 06/22/2021 Results for 6:18 AM CDT this procedure are in the results section. LIPASE LEVEL Now 06/22/2021 Results for 6:18 AM CDT this procedure are in the results section. AMYLASE LEVEL Now 06/22/2021 Results for 6:18 AM CDT this procedure are in the results section. LACTATE DEHYDROGENASE Now 06/22/2021 Result s for 6:18 AM CDT this procedure are in the results section. PHOSPHORUS LEVEL Now 06/22/2021 Results for 6:18 AM CDT this procedure are in the results section. MAGNESIUM LEVEL Now 06/22/2021 Results for 6:18 AM CDT this procedure are in the results section. COMPREHENSIVE METABOLIC Now 06/22/2021 PANEL 6:18 AM CDT COMPLETE BLOOD COUNT W/ Now 06/22/2021 DIFFERENTIAL 6:18 AM CDT INFLUENZA A/B + COVID-19 Now 06/22/2021 Res ults for ASYMPTOMATIC-L 6:18 AM CDT this procedure are in the results section. BLOODCULTURE Now 06/22/2021 Results for 6:18 AM CDT this procedure are in the results section. POC GLUCOSE SCREEN Routine 06/22/2021 Results f or 6:09 AM CDT this procedure are in the results section. GENERAL LABORATORY ADD ON Now 06/21/2021 Re sults for TEST 6:59 PM CDT this procedure are in the results section. POC GLUCOSE SCREEN Routine 06/21/2021 Results f or 12:01 PM CDT this procedure are in the results section. POC GLUCOSE SCREEN Routine 06/21/2021 Results f or 9:21 AM CDT this procedure are in the results section. URINALYSIS WITH MICROSCOPIC Now 06/21/2021 Results for IF INDICATED 9:07 AM CDT this procedure are in the results section. CANCER ANTIGEN 19-9 AM 06/21/2021 Results for 5:49 AM CDT this procedure are in the results section. FRACTIONATED BILIRUBIN AM 06/21/2021 Resul ts for 5:49 AM CDT this procedure are in the results section. TOTAL PROTEIN AM 06/21/2021 Results for 5:49 AM CDT this procedure are in the results section. ASPARTATE AMINOTRANSFERASE AM 06/21/2021 R esults for 5:49 AM CDT this procedure are in the results section. ALANINE AMINOTRANSFERASE AM 06/21/2021 Res ults for 5:49 AM CDT this procedure are in the results section. ALKALINE PHOSPHATASE AM 06/21/2021 Results for 5:49 AM CDT this procedure are in the results section. ALBUMIN LEVEL AM 06/21/2021 Results for 5:49 AM CDT this procedure are in the results section. CALCIUM LEVEL TOTAL AM 06/21/2021 Results for 5:49 AM CDT this procedure are in the results section. .GLOMERULAR FILTRATION RATE AM 06/21/2021 Results for 5:49 AM CDT this procedure are in the results section. SERUM CREATININE AM 06/21/2021 Results for 5:49 AM CDT this procedure are in the results section. ELECTROLYTE PANEL AM 06/21/2021 Results fo r 5:49 AM CDT this procedure are in the results section. BLOOD UREA NITROGEN AM 06/21/2021 Results for 5:49 AM CDT this procedure are in the results section. GLUCOSE LEVEL AM 06/21/2021 Results for 5:49 AM CDT this procedure are in the results section. MANUAL DIFFERENTIAL AM 06/21/2021 Results for 5:49 AM CDT this procedure are in the results section. Results CBC AM 06/21/2021 Results for 5:49 AM CDT this procedure are in the results section. PHOSPHORUS LEVEL AM 06/21/2021 Results for 5:49 AM CDT this procedure are in the results section. MAGNESIUM LEVEL AM 06/21/2021 Results for 5:49 AM CDT this procedure are in the results section. COMPREHENSIVE METABOLIC AM 06/21/2021 PANEL 5:49 AM CDT COMPLETE BLOOD COUNT W/ AM 06/21/2021 DIFFERENTIAL 5:49 AM CDT POC GLUCOSE SCREEN Routine 06/20/2021 Results f or 9:58 PM CDT this procedure are in the results section. POC GLUCOSE SCREEN Routine 06/20/2021 Results f or 6:17 PM CDT this procedure are in the results section. POC GLUCOSE SCREEN Routine 06/20/2021 Results f or 11:44 AM CDT this procedure are in the results section. POC GLUCOSE SCREEN Routine 06/20/2021 Results f or 7:25 AM CDT this procedure are in the results section. FRACTIONATED BILIRUBIN AM 06/20/2021 Resul ts for 5:10 AM CDT this procedure are in the results section. TOTAL PROTEIN AM 06/20/2021 Results for 5:10 AM CDT this procedure are in the results section. ASPARTATE AMINOTRANSFERASE AM 06/20/2021 R esults for 5:10 AM CDT this procedure are in the results section. ALANINE AMINOTRANSFERASE AM 06/20/2021 Res ults for 5:10 AM CDT this procedure are in the results section. ALKALINE PHOSPHATASE AM 06/20/2021 Results for 5:10 AM CDT this procedure are in the results section. ALBUMIN LEVEL AM 06/20/2021 Results for 5:10 AM CDT this procedure are in the results section. CALCIUM LEVEL TOTAL AM 06/20/2021 Results for 5:10 AM CDT this procedure are in the results section. .GLOMERULAR FILTRATION RATE AM 06/20/2021 Results for 5:10 AM CDT this procedure are in the results section. SERUM CREATININE AM 06/20/2021 Results for 5:10 AM CDT this procedure are in the results section. ELECTROLYTE PANEL AM 06/20/2021 Results fo r 5:10 AM CDT this procedure are in the results section. BLOOD UREA NITROGEN AM 06/20/2021 Results for 5:10 AM CDT this procedure are in the results section. GLUCOSE LEVEL AM 06/20/2021 Results for 5:10 AM CDT this procedure are in the results section. MANUAL DIFFERENTIAL AM 06/20/2021 Results for 5:10 AM CDT this procedure are in the results section. Results CBC AM 06/20/2021 Results for 5:10 AM CDT this procedure are in the results section. PHOSPHORUS LEVEL AM 06/20/2021 Results for 5:10 AM CDT this procedure are in the results section. MAGNESIUM LEVEL AM 06/20/2021 Results for 5:10 AM CDT this procedure are in the results section. COMPREHENSIVE METABOLIC AM 06/20/2021 PANEL 5:10 AM CDT COMPLETE BLOOD COUNT W/ AM 06/20/2021 DIFFERENTIAL 5:10 AM CDT POC GLUCOSE SCREEN Routine 06/19/2021 Results f or 8:55 PM CDT this procedure are in the results section. POC GLUCOSE SCREEN Routine 06/19/2021 Results f or 4:27 PM CDT this procedure are in the results section. POC GLUCOSE SCREEN Routine 06/19/2021 Results f or 1:46 PM CDT this procedure are in the results section. POC GLUCOSE SCREEN Routine 06/19/2021 Results f or 7:55 AM CDT this procedure are in the results section. FRACTIONATED BILIRUBIN AM 06/19/2021 Resul ts for 5:10 AM CDT this procedure are in the results section. TOTAL PROTEIN AM 06/19/2021 Results for 5:10 AM CDT this procedure are in the results section. ASPARTATE AMINOTRANSFERASE AM 06/19/2021 R esults for 5:10 AM CDT this procedure are in the results section. ALANINE AMINOTRANSFERASE AM 06/19/2021 Res ults for 5:10 AM CDT this procedure are in the results section. ALKALINE PHOSPHATASE AM 06/19/2021 Results for 5:10 AM CDT this procedure are in the results section. ALBUMIN LEVEL AM 06/19/2021 Results for 5:10 AM CDT this procedure are in the results section. CALCIUM LEVEL TOTAL AM 06/19/2021 Results for 5:10 AM CDT this procedure are in the results section. .GLOMERULAR FILTRATION RATE AM 06/19/2021 Results for 5:10 AM CDT this procedure are in the results section. SERUM CREATININE AM 06/19/2021 Results for 5:10 AM CDT this procedure are in the results section. ELECTROLYTE PANEL AM 06/19/2021 Results fo r 5:10 AM CDT this procedure are in the results section. BLOOD UREA NITROGEN AM 06/19/2021 Results for 5:10 AM CDT this procedure are in the results section. GLUCOSE LEVEL AM 06/19/2021 Results for 5:10 AM CDT this procedure are in the results section. MANUAL DIFFERENTIAL AM 06/19/2021 Results for 5:10 AM CDT this procedure are in the results section. Results CBC AM 06/19/2021 Results for 5:10 AM CDT this procedure are in the results section. PHOSPHORUS LEVEL AM 06/19/2021 Results for 5:10 AM CDT this procedure are in the results section. MAGNESIUM LEVEL AM 06/19/2021 Results for 5:10 AM CDT this procedure are in the results section. COMPREHENSIVE METABOLIC AM 06/19/2021 PANEL 5:10 AM CDT COMPLETE BLOOD COUNT W/ AM 06/19/2021 DIFFERENTIAL 5:10 AM CDT POC GLUCOSE SCREEN Routine 06/18/2021 Results f or 9:17 PM CDT this procedure are in the results section. POC GLUCOSE SCREEN Routine 06/18/2021 Results f or 5:42 PM CDT this procedure are in the results section. POC GLUCOSE SCREEN Routine 06/18/2021 Results f or 12:18 PM CDT this procedure are in the results section. POC GLUCOSE SCREEN Routine 06/18/2021 Results f or 7:53 AM CDT this procedure are in the results section. FRACTIONATED BILIRUBIN AM 06/18/2021 Resul ts for 3:29 AM CDT this procedure are in the results section. TOTAL PROTEIN AM 06/18/2021 Results for 3:29 AM CDT this procedure are in the results section. ASPARTATE AMINOTRANSFERASE AM 06/18/2021 R esults for 3:29 AM CDT this procedure are in the results section. ALANINE AMINOTRANSFERASE AM 06/18/2021 Res ults for 3:29 AM CDT this procedure are in the results section. ALKALINE PHOSPHATASE AM 06/18/2021 Results for 3:29 AM CDT this procedure are in the results section. ALBUMIN LEVEL AM 06/18/2021 Results for 3:29 AM CDT this procedure are in the results section. CALCIUM LEVEL TOTAL AM 06/18/2021 Results for 3:29 AM CDT this procedure are in the results section. .GLOMERULAR FILTRATION RATE AM 06/18/2021 Results for 3:29 AM CDT this procedure are in the results section. SERUM CREATININE AM 06/18/2021 Results for 3:29 AM CDT this procedure are in the results section. ELECTROLYTE PANEL AM 06/18/2021 Results fo r 3:29 AM CDT this procedure are in the results section. BLOOD UREA NITROGEN AM 06/18/2021 Results for 3:29 AM CDT this procedure are in the results section. GLUCOSE LEVEL AM 06/18/2021 Results for 3:29 AM CDT this procedure are in the results section. MANUAL DIFFERENTIAL AM 06/18/2021 Results for 3:29 AM CDT this procedure are in the results section. Results CBC AM 06/18/2021 Results for 3:29 AM CDT this procedure are in the results section. PHOSPHORUS LEVEL AM 06/18/2021 Results for 3:29 AM CDT this procedure are in the results section. MAGNESIUM LEVEL AM 06/18/2021 Results for 3:29 AM CDT this procedure are in the results section. COMPREHENSIVE METABOLIC AM 06/18/2021 PANEL 3:29 AM CDT COMPLETE BLOOD COUNT W/ AM 06/18/2021 DIFFERENTIAL 3:29 AM CDT POC GLUCOSE SCREEN Routine 06/17/2021 Results f or 9:49 PM CDT this procedure are in the results section. POC GLUCOSE SCREEN Routine 06/17/2021 Results f or 4:41 PM CDT this procedure are in the results section. MRSA SCREENING CULTURE Now 06/17/2021 Resul ts for 12:55 PM CDT this procedure are in the results section. POC GLUCOSE SCREEN Routine 06/17/2021 Results f or 12:43 PM CDT this procedure are in the results section. POC GLUCOSE SCREEN Routine 06/17/2021 Results f or 8:18 AM CDT this procedure are in the results section. CALCIUM LEVEL TOTAL AM 06/17/2021 Results for 5:38 AM CDT this procedure are in the results section. .GLOMERULAR FILTRATION RATE AM 06/17/2021 Results for 5:38 AM CDT this procedure are in the results section. SERUM CREATININE AM 06/17/2021 Results for 5:38 AM CDT this procedure are in the results section. ELECTROLYTE PANEL AM 06/17/2021 Results fo r 5:38 AM CDT this procedure are in the results section. BLOOD UREA NITROGEN AM 06/17/2021 Results for 5:38 AM CDT this procedure are in the results section. GLUCOSE LEVEL AM 06/17/2021 Results for 5:38 AM CDT this procedure are in the results section. MANUAL DIFFERENTIAL AM 06/17/2021 Results for 5:38 AM CDT this procedure are in the results section. Results CBC AM 06/17/2021 Results for 5:38 AM CDT this procedure are in the results section. PHOSPHORUS LEVEL AM 06/17/2021 Results for 5:38 AM CDT this procedure are in the results section. MAGNESIUM LEVEL AM 06/17/2021 Results for 5:38 AM CDT this procedure are in the results section. BASIC METABOLIC PANEL, AM 06/17/2021 CALCIUM TOTAL 5:38 AM CDT COMPLETE BLOOD COUNT W/ AM 06/17/2021 DIFFERENTIAL 5:38 AM CDT SODIUM URINE Now 06/17/2021 Results for 12:56 AM CDT this procedure are in the results section. OSMOLALITY URINE Now 06/17/2021 Results for 12:56 AM CDT this procedure are in the results section. URINALYSIS WITH MICROSCOPIC Now 06/17/2021 Results for IF INDICATED 12:56 AM CDT this procedure are in the results section. URINE CULTURE Now 06/17/2021 Results for 12:56 AM CDT this procedure are in the results section. FREE THYROXINE Now 06/17/2021 Results for 12:10 AM CDT this procedure are in the results section. THYROID STIMULATING HORMONE Now 06/17/2021 Results for 12:10 AM CDT this procedure are in the results section. OSMOLALITY Now 06/17/2021 Results for 12:10 AM CDT this procedure are in the results section. AMB PATIENT NEEDS REFERRAL Routine 06/16/2021 TO PHYSICAL THERAPY 9:29 PM CDT LACTIC ACID, VENOUS STAT 06/16/2021 Results for 9:09 PM CDT this procedure are in the results section. XR CHEST 1 VW Routine 06/16/2021 Results for 8:10 PM CDT this procedure are in the results section. POC VENOUS BLOOD GAS + Routine 06/16/2021 Resul ts for LACTATE 7:53 PM CDT this procedure are in the results section. FRACTIONATED BILIRUBIN Now 06/16/2021 Resul ts for 7:23 PM CDT this procedure are in the results section. TOTAL PROTEIN Now 06/16/2021 Results for 7:23 PM CDT this procedure are in the results section. ASPARTATE AMINOTRANSFERASE Now 06/16/2021 R esults for 7:23 PM CDT this procedure are in the results section. ALANINE AMINOTRANSFERASE Now 06/16/2021 Res ults for 7:23 PM CDT this procedure are in the results section. ALKALINE PHOSPHATASE Now 06/16/2021 Results for 7:23 PM CDT this procedure are in the results section. ALBUMIN LEVEL Now 06/16/2021 Results for 7:23 PM CDT this procedure are in the results section. CALCIUM LEVEL TOTAL Now 06/16/2021 Results for 7:23 PM CDT this procedure are in the results section. .GLOMERULAR FILTRATION RATE Now 06/16/2021 Results for 7:23 PM CDT this procedure are in the results section. SERUM CREATININE Now 06/16/2021 Results for 7:23 PM CDT this procedure are in the results section. ELECTROLYTE PANEL Now 06/16/2021 Results fo r 7:23 PM CDT this procedure are in the results section. BLOOD UREA NITROGEN Now 06/16/2021 Results for 7:23 PM CDT this procedure are in the results section. GLUCOSE LEVEL Now 06/16/2021 Results for 7:23 PM CDT this procedure are in the results section. MANUAL DIFFERENTIAL STAT 06/16/2021 Results for 7:23 PM CDT this procedure are in the results section. Results CBC STAT 06/16/2021 Results for 7:23 PM CDT this procedure are in the results section. PROCALCITONIN Now 06/16/2021 Results for 7:23 PM CDT this procedure are in the results section. C REACTIVE PROTEIN Now 06/16/2021 Results f or 7:23 PM CDT this procedure are in the results section. LACTATE DEHYDROGENASE Now 06/16/2021 Result s for 7:23 PM CDT this procedure are in the results section. PHOSPHORUS LEVEL Now 06/16/2021 Results for 7:23 PM CDT this procedure are in the results section. MAGNESIUM LEVEL Now 06/16/2021 Results for 7:23 PM CDT this procedure are in the results section. COMPREHENSIVE METABOLIC Now 06/16/2021 PANEL 7:23 PM CDT COMPLETE BLOOD COUNT W/ Now 06/16/2021 DIFFERENTIAL 7:23 PM CDT RESPIRATORY VIRAL PANEL + Now 06/16/2021 Re sults for COVID-19, NASOPHARYNGEAL 7:23 PM CDT thi s SWAB procedure are in the results section. BLOODCULTURE Now 06/16/2021 Results for 7:23 PM CDT this procedure are in the results section. IR EXCHANGE OF BILIARY Routine 06/16/2021 Resul ts for DRAINAGE CATHETER 10:48 AM CDT this procedure are in the results section. POC CHEM 8 Routine 06/16/2021 Results for 9:26 AM CDT this procedure are in the results section. POC GLUCOSE SCREEN Routine 06/09/2021 Results f or 1:30 PM CDT this procedure are in the results section. FRACTIONATED BILIRUBIN AM 06/09/2021 Resul ts for 10:03 AM CDT this procedure are in the results section. TOTAL PROTEIN AM 06/09/2021 Results for 10:03 AM CDT this procedure are in the results section. ASPARTATE AMINOTRANSFERASE AM 06/09/2021 R esults for 10:03 AM CDT this procedure are in the results section. ALANINE AMINOTRANSFERASE AM 06/09/2021 Res ults for 10:03 AM CDT this procedure are in the results section. ALKALINE PHOSPHATASE AM 06/09/2021 Results for 10:03 AM CDT this procedure are in the results section. ALBUMIN LEVEL AM 06/09/2021 Results for 10:03 AM CDT this procedure are in the results section. CALCIUM LEVEL TOTAL AM 06/09/2021 Results for 10:03 AM CDT this procedure are in the results section. .GLOMERULAR FILTRATION RATE AM 06/09/2021 Results for 10:03 AM CDT this procedure are in the results section. SERUM CREATININE AM 06/09/2021 Results for 10:03 AM CDT this procedure are in the results section. ELECTROLYTE PANEL AM 06/09/2021 Results fo r 10:03 AM CDT this procedure are in the results section. BLOOD UREA NITROGEN AM 06/09/2021 Results for 10:03 AM CDT this procedure are in the results section. GLUCOSE LEVEL AM 06/09/2021 Results for 10:03 AM CDT this procedure are in the results section. MANUAL DIFFERENTIAL AM 06/09/2021 Results for 10:03 AM CDT this procedure are in the results section. Results CBC AM 06/09/2021 Results for 10:03 AM CDT this procedure are in the results section. MAGNESIUM LEVEL AM 06/09/2021 Results for 10:03 AM CDT this procedure are in the results section. COMPREHENSIVE METABOLIC AM 06/09/2021 PANEL 10:03 AM CDT COMPLETE BLOOD COUNT W/ AM 06/09/2021 DIFFERENTIAL 10:03 AM CDT POC GLUCOSE SCREEN Routine 06/09/2021 Results f or 9:55 AM CDT this procedure are in the results section. POC GLUCOSE SCREEN Routine 06/08/2021 Results f or 10:41 PM CDT this procedure are in the results section. ENDOSCOPY NOTE RESULTS 06/08/2021 Resul ts for 5:27 PM CDT this procedure are in the results section. 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 POC GLUCOSE SCREEN Routine 06/08/2021 Results f or 12:57 PM CDT this procedure are in the results section. POC GLUCOSE SCREEN Routine 06/08/2021 Results f or 9:23 AM CDT this procedure are in the results section. FRACTIONATED BILIRUBIN AM 06/08/2021 Resul ts for 8:07 AM CDT this procedure are in the results section. TOTAL PROTEIN AM 06/08/2021 Results for 8:07 AM CDT this procedure are in the results section. ASPARTATE AMINOTRANSFERASE AM 06/08/2021 R esults for 8:07 AM CDT this procedure are in the results section. ALANINE AMINOTRANSFERASE AM 06/08/2021 Res ults for 8:07 AM CDT this procedure are in the results section. ALKALINE PHOSPHATASE AM 06/08/2021 Results for 8:07 AM CDT this procedure are in the results section. ALBUMIN LEVEL AM 06/08/2021 Results for 8:07 AM CDT this procedure are in the results section. CALCIUM LEVEL TOTAL AM 06/08/2021 Results for 8:07 AM CDT this procedure are in the results section. .GLOMERULAR FILTRATION RATE AM 06/08/2021 Results for 8:07 AM CDT this procedure are in the results section. SERUM CREATININE AM 06/08/2021 Results for 8:07 AM CDT this procedure are in the results section. ELECTROLYTE PANEL AM 06/08/2021 Results fo r 8:07 AM CDT this procedure are in the results section. BLOOD UREA NITROGEN AM 06/08/2021 Results for 8:07 AM CDT this procedure are in the results section. GLUCOSE LEVEL AM 06/08/2021 Results for 8:07 AM CDT this procedure are in the results section. MANUAL DIFFERENTIAL AM 06/08/2021 Results for 8:07 AM CDT this procedure are in the results section. Results CBC AM 06/08/2021 Results for 8:07 AM CDT this procedure are in the results section. VANCOMYCIN LEVEL TROUGH Timed Study 06/08/2021 Resu lts for 8:07 AM CDT this procedure are in the results section. PROCALCITONIN AM 06/08/2021 Results for 8:07 AM CDT this procedure are in the results section. LACTIC ACID, VENOUS AM 06/08/2021 Results for 8:07 AM CDT this procedure are in the results section. MAGNESIUM LEVEL AM 06/08/2021 Results for 8:07 AM CDT this procedure are in the results section. COMPREHENSIVE METABOLIC AM 06/08/2021 PANEL 8:07 AM CDT COMPLETE BLOOD COUNT W/ AM 06/08/2021 DIFFERENTIAL 8:07 AM CDT POC GLUCOSE SCREEN Routine 06/07/2021 Results f or 11:35 PM CDT this procedure are in the results section. POC GLUCOSE SCREEN Routine 06/07/2021 Results f or 10:03 PM CDT this procedure are in the results section. POC GLUCOSE SCREEN Routine 06/07/2021 Results f or 6:58 PM CDT this procedure are in the results section. WOUND CULTURE W/ GRAM STAIN Now 06/07/2021 Results for 5:23 PM CDT this procedure are in the results section. POC GLUCOSE SCREEN Routine 06/07/2021 Results f or 1:39 PM CDT this procedure are in the results section. GENERAL LABORATORY ADD ON Now 06/07/2021 Re sults for TEST 12:06 PM CDT this procedure are in the results section. GENERAL LABORATORY ADD ON Now 06/07/2021 Re sults for TEST 11:52 AM CDT this procedure are in the results section. GENERAL LABORATORY ADD ON Now 06/07/2021 Re sults for TEST 11:50 AM CDT this procedure are in the results section. URINALYSIS MICROSCOPIC Routine 06/07/2021 Resul ts for 6:15 AM CDT this procedure are in the results section. URINALYSIS WITH MICROSCOPIC Now 06/07/2021 Results for IF INDICATED 6:15 AM CDT this procedure are in the results section. BLOODCULTURE Now 06/07/2021 Results for 6:15 AM CDT this procedure are in the results section. CT ABDOMEN PELVIS W CONTRAST STAT 06/07/2021 Results for 1:49 AM CDT this procedure are in the results section. CT HEAD WO CONTRAST STAT 06/07/2021 Results for 1:35 AM CDT this procedure are in the results section. RESPIRATORY VIRAL PANEL + Now 06/07/2021 Re sults for COVID-19, NASOPHARYNGEAL 1:02 AM CDT thi s SWAB procedure are in the results section. HEMOGLOBIN A1C STAT 06/07/2021 Results for 12:12 AM CDT this procedure are in the results section. PROCALCITONIN Now 06/07/2021 Results for 12:12 AM CDT this procedure are in the results section. MANUAL DIFFERENTIAL STAT 06/07/2021 Results for 12:12 AM CDT this procedure are in the results section. Results CBC STAT 06/07/2021 Results for 12:12 AM CDT this procedure are in the results section. FRACTIONATED BILIRUBIN Now 06/07/2021 Resul ts for 12:12 AM CDT this procedure are in the results section. TOTAL PROTEIN Now 06/07/2021 Results for 12:12 AM CDT this procedure are in the results section. ASPARTATE AMINOTRANSFERASE Now 06/07/2021 R esults for 12:12 AM CDT this procedure are in the results section. ALANINE AMINOTRANSFERASE Now 06/07/2021 Res ults for 12:12 AM CDT this procedure are in the results section. ALKALINE PHOSPHATASE Now 06/07/2021 Results for 12:12 AM CDT this procedure are in the results section. ALBUMIN LEVEL Now 06/07/2021 Results for 12:12 AM CDT this procedure are in the results section. CALCIUM LEVEL TOTAL Now 06/07/2021 Results for 12:12 AM CDT this procedure are in the results section. .GLOMERULAR FILTRATION RATE Now 06/07/2021 Results for 12:12 AM CDT this procedure are in the results section. SERUM CREATININE Now 06/07/2021 Results for 12:12 AM CDT this procedure are in the results section. ELECTROLYTE PANEL Now 06/07/2021 Results fo r 12:12 AM CDT this procedure are in the results section. BLOOD UREA NITROGEN Now 06/07/2021 Results for 12:12 AM CDT this procedure are in the results section. GLUCOSE LEVEL Now 06/07/2021 Results for 12:12 AM CDT this procedure are in the results section. LIPASE LEVEL Now 06/07/2021 Results for 12:12 AM CDT this procedure are in the results section. AMYLASE LEVEL Now 06/07/2021 Results for 12:12 AM CDT this procedure are in the results section. LACTATE DEHYDROGENASE Now 06/07/2021 Result s for 12:12 AM CDT this procedure are in the results section. PHOSPHORUS LEVEL Now 06/07/2021 Results for 12:12 AM CDT this procedure are in the results section. MAGNESIUM LEVEL Now 06/07/2021 Results for 12:12 AM CDT this procedure are in the results section. COMPREHENSIVE METABOLIC Now 06/07/2021 PANEL 12:12 AM CDT COVID-19 (SARS-COV-2) PCR Routine 06/05/2021 Encounter fo r Results for ASYMPTOMATIC 1:29 PM CDT observation for other this suspected exposure to proced ure biological agent are in the ruled out results section. GENERAL LABORATORY ADD ON STAT 06/05/2021 Cholangiocarcin linda Results for TEST 9:16 AM CDT this procedure are in the results section. CANCER ANTIGEN 19-9 Routine 06/05/2021 Results for 6:41 AM CDT this procedure are in the results section. MANUAL DIFFERENTIAL Routine 06/05/2021 Cholangiocarcinoma Re sults for 6:41 AM CDT this procedure are in the results section. Results CBC Routine 06/05/2021 Cholangiocarcinoma Results f or 6:41 AM CDT this procedure are in the results section. FRACTIONATED BILIRUBIN Routine 06/05/2021 Cholangiocarcinoma Results for 6:41 AM CDT this procedure are in the results section. TOTAL PROTEIN Routine 06/05/2021 Cholangiocarcinoma Results for 6:41 AM CDT this procedure are in the results section. ASPARTATE AMINOTRANSFERASE Routine 06/05/2021 Cholangiocarci noma Results for 6:41 AM CDT this procedure are in the results section. ALANINE AMINOTRANSFERASE Routine 06/05/2021 Cholangiocarcino ma Results for 6:41 AM CDT this procedure are in the results section. ALKALINE PHOSPHATASE Routine 06/05/2021 Cholangiocarcinoma R esults for 6:41 AM CDT this procedure are in the results section. ALBUMIN LEVEL Routine 06/05/2021 Cholangiocarcinoma Results for 6:41 AM CDT this procedure are in the results section. CALCIUM LEVEL TOTAL Routine 06/05/2021 Cholangiocarcinoma Re sults for 6:41 AM CDT this procedure are in the results section. .GLOMERULAR FILTRATION RATE Routine 06/05/2021 Cholangiocarc inoma Results for 6:41 AM CDT this procedure are in the results section. SERUM CREATININE Routine 06/05/2021 Cholangiocarcinoma Resul ts for 6:41 AM CDT this procedure are in the results section. ELECTROLYTE PANEL Routine 06/05/2021 Cholangiocarcinoma Resu lts for 6:41 AM CDT this procedure are in the results section. BLOOD UREA NITROGEN Routine 06/05/2021 Cholangiocarcinoma Re sults for 6:41 AM CDT this procedure are in the results section. GLUCOSE LEVEL Routine 06/05/2021 Cholangiocarcinoma Results for 6:41 AM CDT this procedure are in the results section. COMPLETE BLOOD COUNT W/ Routine 06/05/2021 Cholangiocarcinom a DIFFERENTIAL 6:41 AM CDT COMPREHENSIVE METABOLIC Routine 06/05/2021 Cholangiocarcinom a PANEL 6:41 AM CDT POC CHEM 8 Routine 05/31/2021 Results for 10:26 AM CDT this procedure are in the results section. IR FL PORT PLACEMENT Routine 05/31/2021 Cholangiocarcinoma R esults for 9:26 AM CDT this procedure are in the results section. POC CHEM 8 Routine 05/31/2021 Results for 7:35 AM CDT this procedure are in the results section. TMP INTERPRETATION ANTIBODY Routine 05/29/2021 Results for SCREEN NEGATIVE 9:28 AM CDT this procedure are in the results section. CLOT EXPIRATION DATE Routine 05/29/2021 Results for 9:28 AM CDT this procedure are in the results section. ANION GAP Routine 05/29/2021 Results for 9:28 AM CDT this procedure are in the results section. ANTIBODY SCREEN Routine 05/29/2021 Results for 9:28 AM CDT this procedure are in the results section. ABORH Routine 05/29/2021 Results for 9:28 AM CDT this procedure are in the results section. .GLOMERULAR FILTRATION RATE Routine 05/29/2021 Results for 9:28 AM CDT this procedure are in the results section. SERUM CREATININE Routine 05/29/2021 Results for 9:28 AM CDT this procedure are in the results section. MANUAL DIFFERENTIAL Routine 05/29/2021 Results for 9:28 AM CDT this procedure are in the results section. Results CBC Routine 05/29/2021 Results for 9:28 AM CDT this procedure are in the results section. CONFIRM ABORH TYPE Routine 05/29/2021 Results f or 9:28 AM CDT this procedure are in the results section. TYPE AND SCREEN Routine 05/29/2021 9:28 AM CDT GLUCOSE, RANDOM Routine 05/29/2021 Results for 9:28 AM CDT this procedure are in the results section. PROTHROMBIN TIME Routine 05/29/2021 Results for 9:28 AM CDT this procedure are in the results section. BLOOD UREA NITROGEN Routine 05/29/2021 Results for 9:28 AM CDT this procedure are in the results section. SERUM CREATININE Routine 05/29/2021 9:28 AM CDT POTASSIUM LEVEL Routine 05/29/2021 Results for 9:28 AM CDT this procedure are in the results section. SODIUM LEVEL Routine 05/29/2021 Results for 9:28 AM CDT this procedure are in the results section. CHLORIDE LEVEL Routine 05/29/2021 Results for 9:28 AM CDT this procedure are in the results section. CARBON DIOXIDE LEVEL Routine 05/29/2021 Results for 9:28 AM CDT this procedure are in the results section. COMPLETE BLOOD COUNT W/ Routine 05/29/2021 DIFFERENTIAL 9:28 AM CDT MD COVID-19 (SARS-COV-2) PCR Routine 05/29/2021 Encounter fo r Results for ASYMPTOMATIC 8:37 AM CDT observation for other this suspected exposure to proced ure biological agent are in the ruled out results section. FRACTIONATED BILIRUBIN Routine 05/24/2021 Cholangiocarcinoma Results for 8:12 AM CDT this procedure are in the results section. TOTAL PROTEIN Routine 05/24/2021 Cholangiocarcinoma Results for 8:12 AM CDT this procedure are in the results section. ASPARTATE AMINOTRANSFERASE Routine 05/24/2021 Cholangiocarci noma Results for 8:12 AM CDT this procedure are in the results section. ALANINE AMINOTRANSFERASE Routine 05/24/2021 Cholangiocarcino ma Results for 8:12 AM CDT this procedure are in the results section. ALKALINE PHOSPHATASE Routine 05/24/2021 Cholangiocarcinoma R esults for 8:12 AM CDT this procedure are in the results section. ALBUMIN LEVEL Routine 05/24/2021 Cholangiocarcinoma Results for 8:12 AM CDT this procedure are in the results section. CALCIUM LEVEL TOTAL Routine 05/24/2021 Cholangiocarcinoma Re sults for 8:12 AM CDT this procedure are in the results section. .GLOMERULAR FILTRATION RATE Routine 05/24/2021 Cholangiocarc inoma Results for 8:12 AM CDT this procedure are in the results section. SERUM CREATININE Routine 05/24/2021 Cholangiocarcinoma Resul ts for 8:12 AM CDT this procedure are in the results section. ELECTROLYTE PANEL Routine 05/24/2021 Cholangiocarcinoma Resu lts for 8:12 AM CDT this procedure are in the results section. BLOOD UREA NITROGEN Routine 05/24/2021 Cholangiocarcinoma Re sults for 8:12 AM CDT this procedure are in the results section. GLUCOSE LEVEL Routine 05/24/2021 Cholangiocarcinoma Results for 8:12 AM CDT this procedure are in the results section. MANUAL DIFFERENTIAL Routine 05/24/2021 Cholangiocarcinoma Re sults for 8:12 AM CDT this procedure are in the results section. Results CBC Routine 05/24/2021 Cholangiocarcinoma Results f or 8:12 AM CDT this procedure are in the results section. CANCER ANTIGEN 125 Routine 05/24/2021 Cholangiocarcinoma Res ults for 8:12 AM CDT this procedure are in the results section. CANCER ANTIGEN 19-9 Routine 05/24/2021 Cholangiocarcinoma Re sults for 8:12 AM CDT this procedure are in the results section. CARCINOEMBRYONIC ANTIGEN Routine 05/24/2021 Cholangiocarcino ma Results for 8:12 AM CDT this procedure are in the results section. PHOSPHORUS LEVEL Routine 05/24/2021 Cholangiocarcinoma Resul ts for 8:12 AM CDT this procedure are in the results section. MAGNESIUM LEVEL Routine 05/24/2021 Cholangiocarcinoma Result s for 8:12 AM CDT this procedure are in the results section. LACTATE DEHYDROGENASE Routine 05/24/2021 Cholangiocarcinoma Results for 8:12 AM CDT this procedure are in the results section. COMPREHENSIVE METABOLIC Routine 05/24/2021 Cholangiocarcinom a PANEL 8:12 AM CDT COMPLETE BLOOD COUNT W/ Routine 05/24/2021 Cholangiocarcinom a DIFFERENTIAL 8:12 AM CDT POC GLUCOSE SCREEN Routine 05/23/2021 Results f or 2:36 PM CDT this procedure are in the results section. POC GLUCOSE SCREEN Routine 05/23/2021 Results f or 10:05 AM CDT this procedure are in the results section. FRACTIONATED BILIRUBIN AM 05/23/2021 Resul ts for 12:46 AM CDT this procedure are in the results section. TOTAL PROTEIN AM 05/23/2021 Results for 12:46 AM CDT this procedure are in the results section. ASPARTATE AMINOTRANSFERASE AM 05/23/2021 R esults for 12:46 AM CDT this procedure are in the results section. ALANINE AMINOTRANSFERASE AM 05/23/2021 Res ults for 12:46 AM CDT this procedure are in the results section. ALKALINE PHOSPHATASE AM 05/23/2021 Results for 12:46 AM CDT this procedure are in the results section. ALBUMIN LEVEL AM 05/23/2021 Results for 12:46 AM CDT this procedure are in the results section. CALCIUM LEVEL TOTAL AM 05/23/2021 Results for 12:46 AM CDT this procedure are in the results section. .GLOMERULAR FILTRATION RATE AM 05/23/2021 Results for 12:46 AM CDT this procedure are in the results section. SERUM CREATININE AM 05/23/2021 Results for 12:46 AM CDT this procedure are in the results section. ELECTROLYTE PANEL AM 05/23/2021 Results fo r 12:46 AM CDT this procedure are in the results section. BLOOD UREA NITROGEN AM 05/23/2021 Results for 12:46 AM CDT this procedure are in the results section. GLUCOSE LEVEL AM 05/23/2021 Results for 12:46 AM CDT this procedure are in the results section. MANUAL DIFFERENTIAL AM 05/23/2021 Results for 12:46 AM CDT this procedure are in the results section. Results CBC AM 05/23/2021 Results for 12:46 AM CDT this procedure are in the results section. MAGNESIUM LEVEL AM 05/23/2021 Results for 12:46 AM CDT this procedure are in the results section. PHOSPHORUS LEVEL AM 05/23/2021 Results for 12:46 AM CDT this procedure are in the results section. COMPREHENSIVE METABOLIC AM 05/23/2021 PANEL 12:46 AM CDT COMPLETE BLOOD COUNT W/ AM 05/23/2021 DIFFERENTIAL 12:46 AM CDT POC GLUCOSE SCREEN Routine 05/22/2021 Results f or 9:37 PM CDT this procedure are in the results section. POC GLUCOSE SCREEN Routine 05/22/2021 Results f or 7:30 PM CDT this procedure are in the results section. POC GLUCOSE SCREEN Routine 05/22/2021 Results f or 5:54 PM CDT this procedure are in the results section. IR EXCHANGE OF BILIARY Routine 05/22/2021 Cholangiocarcinoma Results for DRAINAGE CATHETER 5:40 PM CDT this procedure are in the results section. POC GLUCOSE SCREEN Routine 05/22/2021 Results f or 12:37 PM CDT this procedure are in the results section. POC GLUCOSE SCREEN Routine 05/22/2021 Results f or 7:44 AM CDT this procedure are in the results section. FRACTIONATED BILIRUBIN AM 05/22/2021 Resul ts for 12:29 AM CDT this procedure are in the results section. TOTAL PROTEIN AM 05/22/2021 Results for 12:29 AM CDT this procedure are in the results section. ASPARTATE AMINOTRANSFERASE AM 05/22/2021 R esults for 12:29 AM CDT this procedure are in the results section. ALANINE AMINOTRANSFERASE AM 05/22/2021 Res ults for 12:29 AM CDT this procedure are in the results section. ALKALINE PHOSPHATASE AM 05/22/2021 Results for 12:29 AM CDT this procedure are in the results section. ALBUMIN LEVEL AM 05/22/2021 Results for 12:29 AM CDT this procedure are in the results section. CALCIUM LEVEL TOTAL AM 05/22/2021 Results for 12:29 AM CDT this procedure are in the results section. .GLOMERULAR FILTRATION RATE AM 05/22/2021 Results for 12:29 AM CDT this procedure are in the results section. SERUM CREATININE AM 05/22/2021 Results for 12:29 AM CDT this procedure are in the results section. ELECTROLYTE PANEL AM 05/22/2021 Results fo r 12:29 AM CDT this procedure are in the results section. BLOOD UREA NITROGEN AM 05/22/2021 Results for 12:29 AM CDT this procedure are in the results section. GLUCOSE LEVEL AM 05/22/2021 Results for 12:29 AM CDT this procedure are in the results section. MANUAL DIFFERENTIAL AM 05/22/2021 Results for 12:29 AM CDT this procedure are in the results section. Results CBC AM 05/22/2021 Results for 12:29 AM CDT this procedure are in the results section. APTT Routine 05/22/2021 Results for 12:29 AM CDT this procedure are in the results section. PROTHROMBIN TIME Routine 05/22/2021 Results for 12:29 AM CDT this procedure are in the results section. MAGNESIUM LEVEL AM 05/22/2021 Results for 12:29 AM CDT this procedure are in the results section. PHOSPHORUS LEVEL AM 05/22/2021 Results for 12:29 AM CDT this procedure are in the results section. COMPREHENSIVE METABOLIC AM 05/22/2021 PANEL 12:29 AM CDT COMPLETE BLOOD COUNT W/ AM 05/22/2021 DIFFERENTIAL 12:29 AM CDT POC GLUCOSE SCREEN Routine 05/21/2021 Results f or 8:57 PM CDT this procedure are in the results section. POC GLUCOSE SCREEN Routine 05/21/2021 Results f or 4:28 PM CDT this procedure are in the results section. POC GLUCOSE SCREEN Routine 05/21/2021 Results f or 12:18 PM CDT this procedure are in the results section. POC GLUCOSE SCREEN Routine 05/21/2021 Results f or 7:38 AM CDT this procedure are in the results section. FRACTIONATED BILIRUBIN AM 05/21/2021 Resul ts for 12:59 AM CDT this procedure are in the results section. TOTAL PROTEIN AM 05/21/2021 Results for 12:59 AM CDT this procedure are in the results section. ASPARTATE AMINOTRANSFERASE AM 05/21/2021 R esults for 12:59 AM CDT this procedure are in the results section. ALANINE AMINOTRANSFERASE AM 05/21/2021 Res ults for 12:59 AM CDT this procedure are in the results section. ALKALINE PHOSPHATASE AM 05/21/2021 Results for 12:59 AM CDT this procedure are in the results section. ALBUMIN LEVEL AM 05/21/2021 Results for 12:59 AM CDT this procedure are in the results section. CALCIUM LEVEL TOTAL AM 05/21/2021 Results for 12:59 AM CDT this procedure are in the results section. .GLOMERULAR FILTRATION RATE AM 05/21/2021 Results for 12:59 AM CDT this procedure are in the results section. SERUM CREATININE AM 05/21/2021 Results for 12:59 AM CDT this procedure are in the results section. ELECTROLYTE PANEL AM 05/21/2021 Results fo r 12:59 AM CDT this procedure are in the results section. BLOOD UREA NITROGEN AM 05/21/2021 Results for 12:59 AM CDT this procedure are in the results section. GLUCOSE LEVEL AM 05/21/2021 Results for 12:59 AM CDT this procedure are in the results section. MANUAL DIFFERENTIAL AM 05/21/2021 Results for 12:59 AM CDT this procedure are in the results section. Results CBC AM 05/21/2021 Results for 12:59 AM CDT this procedure are in the results section. MAGNESIUM LEVEL AM 05/21/2021 Results for 12:59 AM CDT this procedure are in the results section. PHOSPHORUS LEVEL AM 05/21/2021 Results for 12:59 AM CDT this procedure are in the results section. COMPREHENSIVE METABOLIC AM 05/21/2021 PANEL 12:59 AM CDT COMPLETE BLOOD COUNT W/ AM 05/21/2021 DIFFERENTIAL 12:59 AM CDT POC GLUCOSE SCREEN Routine 05/20/2021 Results f or 10:10 PM CDT this procedure are in the results section. POC GLUCOSE SCREEN Routine 05/20/2021 Results f or 5:32 PM CDT this procedure are in the results section. POC GLUCOSE SCREEN Routine 05/20/2021 Results f or 1:43 PM CDT this procedure are in the results section. POC GLUCOSE SCREEN Routine 05/20/2021 Results f or 8:01 AM CDT this procedure are in the results section. FRACTIONATED BILIRUBIN AM 05/20/2021 Resul ts for 12:21 AM CDT this procedure are in the results section. TOTAL PROTEIN AM 05/20/2021 Results for 12:21 AM CDT this procedure are in the results section. ASPARTATE AMINOTRANSFERASE AM 05/20/2021 R esults for 12:21 AM CDT this procedure are in the results section. ALANINE AMINOTRANSFERASE AM 05/20/2021 Res ults for 12:21 AM CDT this procedure are in the results section. ALKALINE PHOSPHATASE AM 05/20/2021 Results for 12:21 AM CDT this procedure are in the results section. ALBUMIN LEVEL AM 05/20/2021 Results for 12:21 AM CDT this procedure are in the results section. CALCIUM LEVEL TOTAL AM 05/20/2021 Results for 12:21 AM CDT this procedure are in the results section. .GLOMERULAR FILTRATION RATE AM 05/20/2021 Results for 12:21 AM CDT this procedure are in the results section. SERUM CREATININE AM 05/20/2021 Results for 12:21 AM CDT this procedure are in the results section. ELECTROLYTE PANEL AM 05/20/2021 Results fo r 12:21 AM CDT this procedure are in the results section. BLOOD UREA NITROGEN AM 05/20/2021 Results for 12:21 AM CDT this procedure are in the results section. GLUCOSE LEVEL AM 05/20/2021 Results for 12:21 AM CDT this procedure are in the results section. MANUAL DIFFERENTIAL AM 05/20/2021 Results for 12:21 AM CDT this procedure are in the results section. Results CBC AM 05/20/2021 Results for 12:21 AM CDT this procedure are in the results section. MAGNESIUM LEVEL AM 05/20/2021 Results for 12:21 AM CDT this procedure are in the results section. PHOSPHORUS LEVEL AM 05/20/2021 Results for 12:21 AM CDT this procedure are in the results section. COMPREHENSIVE METABOLIC AM 05/20/2021 PANEL 12:21 AM CDT COMPLETE BLOOD COUNT W/ AM 05/20/2021 DIFFERENTIAL 12:21 AM CDT POC GLUCOSE SCREEN Routine 05/19/2021 Results f or 9:36 PM CDT this procedure are in the results section. POC GLUCOSE SCREEN Routine 05/19/2021 Results f or 4:57 PM CDT this procedure are in the results section. POC GLUCOSE SCREEN Routine 05/19/2021 Results f or 12:39 PM CDT this procedure are in the results section. POC GLUCOSE SCREEN Routine 05/19/2021 Results f or 7:29 AM CDT this procedure are in the results section. FRACTIONATED BILIRUBIN AM 05/19/2021 Resul ts for 12:46 AM CDT this procedure are in the results section. TOTAL PROTEIN AM 05/19/2021 Results for 12:46 AM CDT this procedure are in the results section. ASPARTATE AMINOTRANSFERASE AM 05/19/2021 R esults for 12:46 AM CDT this procedure are in the results section. ALANINE AMINOTRANSFERASE AM 05/19/2021 Res ults for 12:46 AM CDT this procedure are in the results section. ALKALINE PHOSPHATASE AM 05/19/2021 Results for 12:46 AM CDT this procedure are in the results section. ALBUMIN LEVEL AM 05/19/2021 Results for 12:46 AM CDT this procedure are in the results section. CALCIUM LEVEL TOTAL AM 05/19/2021 Results for 12:46 AM CDT this procedure are in the results section. .GLOMERULAR FILTRATION RATE AM 05/19/2021 Results for 12:46 AM CDT this procedure are in the results section. SERUM CREATININE AM 05/19/2021 Results for 12:46 AM CDT this procedure are in the results section. ELECTROLYTE PANEL AM 05/19/2021 Results fo r 12:46 AM CDT this procedure are in the results section. BLOOD UREA NITROGEN AM 05/19/2021 Results for 12:46 AM CDT this procedure are in the results section. GLUCOSE LEVEL AM 05/19/2021 Results for 12:46 AM CDT this procedure are in the results section. MANUAL DIFFERENTIAL AM 05/19/2021 Results for 12:46 AM CDT this procedure are in the results section. Results CBC AM 05/19/2021 Results for 12:46 AM CDT this procedure are in the results section. MAGNESIUM LEVEL AM 05/19/2021 Results for 12:46 AM CDT this procedure are in the results section. PHOSPHORUS LEVEL AM 05/19/2021 Results for 12:46 AM CDT this procedure are in the results section. COMPREHENSIVE METABOLIC AM 05/19/2021 PANEL 12:46 AM CDT COMPLETE BLOOD COUNT W/ AM 05/19/2021 DIFFERENTIAL 12:46 AM CDT POC GLUCOSE SCREEN Routine 05/18/2021 Results f or 9:11 PM CDT this procedure are in the results section. POC GLUCOSE SCREEN Routine 05/18/2021 Results f or 5:45 PM CDT this procedure are in the results section. POC GLUCOSE SCREEN Routine 05/18/2021 Results f or 12:41 PM CDT this procedure are in the results section. URINALYSIS WITH MICROSCOPIC Now 05/18/2021 Results for IF INDICATED 11:43 AM CDT this procedure are in the results section. URINE CULTURE Now 05/18/2021 Results for 11:43 AM CDT this procedure are in the results section. CALCIUM IONIZED, VENOUS Now 05/18/2021 Resu lts for 10:59 AM CDT this procedure are in the results section. .GLOMERULAR FILTRATION RATE Now 05/18/2021 Results for 10:59 AM CDT this procedure are in the results section. SERUM CREATININE Now 05/18/2021 Results for 10:59 AM CDT this procedure are in the results section. ELECTROLYTE PANEL Now 05/18/2021 Results fo r 10:59 AM CDT this procedure are in the results section. BLOOD UREA NITROGEN Now 05/18/2021 Results for 10:59 AM CDT this procedure are in the results section. GLUCOSE LEVEL Now 05/18/2021 Results for 10:59 AM CDT this procedure are in the results section. BASIC METABOLIC PANEL, Now 05/18/2021 CALCIUM IONIZED 10:59 AM CDT PHOSPHORUS LEVEL Now 05/18/2021 Results for 10:59 AM CDT this procedure are in the results section. MAGNESIUM LEVEL Now 05/18/2021 Results for 10:59 AM CDT this procedure are in the results section. BLOODCULTURE Now 05/18/2021 Results for 10:59 AM CDT this procedure are in the results section. XR CHEST 1 VW Routine 05/18/2021 Results for 10:57 AM CDT this procedure are in the results section. ECHOCARDIOGRAM 2D COMPLETE Routine 05/18/2021 R esults for 9:29 AM CDT this procedure are in the results section. FRACTIONATED BILIRUBIN AM 05/18/2021 Resul ts for 12:33 AM CDT this procedure are in the results section. TOTAL PROTEIN AM 05/18/2021 Results for 12:33 AM CDT this procedure are in the results section. ASPARTATE AMINOTRANSFERASE AM 05/18/2021 R esults for 12:33 AM CDT this procedure are in the results section. ALANINE AMINOTRANSFERASE AM 05/18/2021 Res ults for 12:33 AM CDT this procedure are in the results section. ALKALINE PHOSPHATASE AM 05/18/2021 Results for 12:33 AM CDT this procedure are in the results section. ALBUMIN LEVEL AM 05/18/2021 Results for 12:33 AM CDT this procedure are in the results section. CALCIUM LEVEL TOTAL AM 05/18/2021 Results for 12:33 AM CDT this procedure are in the results section. .GLOMERULAR FILTRATION RATE AM 05/18/2021 Results for 12:33 AM CDT this procedure are in the results section. SERUM CREATININE AM 05/18/2021 Results for 12:33 AM CDT this procedure are in the results section. ELECTROLYTE PANEL AM 05/18/2021 Results fo r 12:33 AM CDT this procedure are in the results section. BLOOD UREA NITROGEN AM 05/18/2021 Results for 12:33 AM CDT this procedure are in the results section. GLUCOSE LEVEL AM 05/18/2021 Results for 12:33 AM CDT this procedure are in the results section. MANUAL DIFFERENTIAL AM 05/18/2021 Results for 12:33 AM CDT this procedure are in the results section. Results CBC AM 05/18/2021 Results for 12:33 AM CDT this procedure are in the results section. MAGNESIUM LEVEL AM 05/18/2021 Results for 12:33 AM CDT this procedure are in the results section. PHOSPHORUS LEVEL AM 05/18/2021 Results for 12:33 AM CDT this procedure are in the results section. COMPREHENSIVE METABOLIC AM 05/18/2021 PANEL 12:33 AM CDT COMPLETE BLOOD COUNT W/ AM 05/18/2021 DIFFERENTIAL 12:33 AM CDT POC GLUCOSE SCREEN Routine 05/17/2021 Results f or 11:27 PM CDT this procedure are in the results section. POC GLUCOSE SCREEN Routine 05/17/2021 Results f or 9:01 PM CDT this procedure are in the results section. POC GLUCOSE SCREEN Routine 05/17/2021 Results f or 5:59 PM CDT this procedure are in the results section. IR EXCHANGE OF BILIARY Routine 05/17/2021 Cholangiocarcinoma Results for DRAINAGE CATHETER 4:56 PM CDT this procedure are in the results section. POC GLUCOSE SCREEN Routine 05/17/2021 Results f or 1:19 PM CDT this procedure are in the results section. POC GLUCOSE SCREEN Routine 05/17/2021 Results f or 8:20 AM CDT this procedure are in the results section. FRACTIONATED BILIRUBIN AM 05/17/2021 Resul ts for 12:24 AM CDT this procedure are in the results section. TOTAL PROTEIN AM 05/17/2021 Results for 12:24 AM CDT this procedure are in the results section. ASPARTATE AMINOTRANSFERASE AM 05/17/2021 R esults for 12:24 AM CDT this procedure are in the results section. ALANINE AMINOTRANSFERASE AM 05/17/2021 Res ults for 12:24 AM CDT this procedure are in the results section. ALKALINE PHOSPHATASE AM 05/17/2021 Results for 12:24 AM CDT this procedure are in the results section. ALBUMIN LEVEL AM 05/17/2021 Results for 12:24 AM CDT this procedure are in the results section. CALCIUM LEVEL TOTAL AM 05/17/2021 Results for 12:24 AM CDT this procedure are in the results section. .GLOMERULAR FILTRATION RATE AM 05/17/2021 Results for 12:24 AM CDT this procedure are in the results section. SERUM CREATININE AM 05/17/2021 Results for 12:24 AM CDT this procedure are in the results section. ELECTROLYTE PANEL AM 05/17/2021 Results fo r 12:24 AM CDT this procedure are in the results section. BLOOD UREA NITROGEN AM 05/17/2021 Results for 12:24 AM CDT this procedure are in the results section. GLUCOSE LEVEL AM 05/17/2021 Results for 12:24 AM CDT this procedure are in the results section. MANUAL DIFFERENTIAL AM 05/17/2021 Results for 12:24 AM CDT this procedure are in the results section. Results CBC AM 05/17/2021 Results for 12:24 AM CDT this procedure are in the results section. MAGNESIUM LEVEL AM 05/17/2021 Results for 12:24 AM CDT this procedure are in the results section. PHOSPHORUS LEVEL AM 05/17/2021 Results for 12:24 AM CDT this procedure are in the results section. COMPREHENSIVE METABOLIC AM 05/17/2021 PANEL 12:24 AM CDT COMPLETE BLOOD COUNT W/ AM 05/17/2021 DIFFERENTIAL 12:24 AM CDT POC GLUCOSE SCREEN Routine 05/16/2021 Results f or 5:58 PM CDT this procedure are in the results section. POC GLUCOSE SCREEN Routine 05/16/2021 Results f or 11:54 AM CDT this procedure are in the results section. POC GLUCOSE SCREEN Routine 05/16/2021 Results f or 5:50 AM CDT this procedure are in the results section. FRACTIONATED BILIRUBIN AM 05/16/2021 Resul ts for 12:14 AM CDT this procedure are in the results section. TOTAL PROTEIN AM 05/16/2021 Results for 12:14 AM CDT this procedure are in the results section. ASPARTATE AMINOTRANSFERASE AM 05/16/2021 R esults for 12:14 AM CDT this procedure are in the results section. ALANINE AMINOTRANSFERASE AM 05/16/2021 Res ults for 12:14 AM CDT this procedure are in the results section. ALKALINE PHOSPHATASE AM 05/16/2021 Results for 12:14 AM CDT this procedure are in the results section. ALBUMIN LEVEL AM 05/16/2021 Results for 12:14 AM CDT this procedure are in the results section. CALCIUM LEVEL TOTAL AM 05/16/2021 Results for 12:14 AM CDT this procedure are in the results section. .GLOMERULAR FILTRATION RATE AM 05/16/2021 Results for 12:14 AM CDT this procedure are in the results section. SERUM CREATININE AM 05/16/2021 Results for 12:14 AM CDT this procedure are in the results section. ELECTROLYTE PANEL AM 05/16/2021 Results fo r 12:14 AM CDT this procedure are in the results section. BLOOD UREA NITROGEN AM 05/16/2021 Results for 12:14 AM CDT this procedure are in the results section. GLUCOSE LEVEL AM 05/16/2021 Results for 12:14 AM CDT this procedure are in the results section. MANUAL DIFFERENTIAL AM 05/16/2021 Results for 12:14 AM CDT this procedure are in the results section. Results CBC AM 05/16/2021 Results for 12:14 AM CDT this procedure are in the results section. THYROXINE AM 05/16/2021 Results for 12:14 AM CDT this procedure are in the results section. THYROID STIMULATING HORMONE AM 05/16/2021 Results for 12:14 AM CDT this procedure are in the results section. PROTHROMBIN TIME AM 05/16/2021 Results for 12:14 AM CDT this procedure are in the results section. MAGNESIUM LEVEL AM 05/16/2021 Results for 12:14 AM CDT this procedure are in the results section. PHOSPHORUS LEVEL AM 05/16/2021 Results for 12:14 AM CDT this procedure are in the results section. COMPREHENSIVE METABOLIC AM 05/16/2021 PANEL 12:14 AM CDT COMPLETE BLOOD COUNT W/ AM 05/16/2021 DIFFERENTIAL 12:14 AM CDT POC GLUCOSE SCREEN Routine 05/15/2021 Results f or 11:56 PM CDT this procedure are in the results section. POC GLUCOSE SCREEN Routine 05/15/2021 Results f or 5:12 PM CDT this procedure are in the results section. URINALYSIS WITH MICROSCOPIC Now 05/15/2021 Results for IF INDICATED 7:32 AM CDT this procedure are in the results section. INFLUENZA A/B + COVID-19 Now 05/15/2021 Res ults for ASYMPTOMATIC-L 7:32 AM CDT this procedure are in the results section. URINE CULTURE Now 05/15/2021 Results for 7:32 AM CDT this procedure are in the results section. CT ABDOMEN PELVIS W CONTRAST Routine 05/15/2021 Results for 6:42 AM CDT this procedure are in the results section. FRACTIONATED BILIRUBIN Now 05/15/2021 Resul ts for 4:51 AM CDT this procedure are in the results section. TOTAL PROTEIN Now 05/15/2021 Results for 4:51 AM CDT this procedure are in the results section. ASPARTATE AMINOTRANSFERASE Now 05/15/2021 R esults for 4:51 AM CDT this procedure are in the results section. ALANINE AMINOTRANSFERASE Now 05/15/2021 Res ults for 4:51 AM CDT this procedure are in the results section. ALKALINE PHOSPHATASE Now 05/15/2021 Results for 4:51 AM CDT this procedure are in the results section. ALBUMIN LEVEL Now 05/15/2021 Results for 4:51 AM CDT this procedure are in the results section. CALCIUM LEVEL TOTAL Now 05/15/2021 Results for 4:51 AM CDT this procedure are in the results section. .GLOMERULAR FILTRATION RATE Now 05/15/2021 Results for 4:51 AM CDT this procedure are in the results section. SERUM CREATININE Now 05/15/2021 Results for 4:51 AM CDT this procedure are in the results section. ELECTROLYTE PANEL Now 05/15/2021 Results fo r 4:51 AM CDT this procedure are in the results section. BLOOD UREA NITROGEN Now 05/15/2021 Results for 4:51 AM CDT this procedure are in the results section. GLUCOSE LEVEL Now 05/15/2021 Results for 4:51 AM CDT this procedure are in the results section. MANUAL DIFFERENTIAL STAT 05/15/2021 Results for 4:51 AM CDT this procedure are in the results section. Results CBC STAT 05/15/2021 Results for 4:51 AM CDT this procedure are in the results section. LIPASE LEVEL Now 05/15/2021 Results for 4:51 AM CDT this procedure are in the results section. AMYLASE LEVEL Now 05/15/2021 Results for 4:51 AM CDT this procedure are in the results section. LACTATE DEHYDROGENASE Now 05/15/2021 Result s for 4:51 AM CDT this procedure are in the results section. PHOSPHORUS LEVEL Now 05/15/2021 Results for 4:51 AM CDT this procedure are in the results section. MAGNESIUM LEVEL Now 05/15/2021 Results for 4:51 AM CDT this procedure are in the results section. COMPREHENSIVE METABOLIC Now 05/15/2021 PANEL 4:51 AM CDT COMPLETE BLOOD COUNT W/ Now 05/15/2021 DIFFERENTIAL 4:51 AM CDT FRACTIONATED BILIRUBIN Routine 05/11/2021 Cholangiocarcinoma Results for 8:02 AM CDT this procedure are in the results section. TOTAL PROTEIN Routine 05/11/2021 Cholangiocarcinoma Results for 8:02 AM CDT this procedure are in the results section. ASPARTATE AMINOTRANSFERASE Routine 05/11/2021 Cholangiocarci noma Results for 8:02 AM CDT this procedure are in the results section. ALANINE AMINOTRANSFERASE Routine 05/11/2021 Cholangiocarcino ma Results for 8:02 AM CDT this procedure are in the results section. ALKALINE PHOSPHATASE Routine 05/11/2021 Cholangiocarcinoma R esults for 8:02 AM CDT this procedure are in the results section. ALBUMIN LEVEL Routine 05/11/2021 Cholangiocarcinoma Results for 8:02 AM CDT this procedure are in the results section. CALCIUM LEVEL TOTAL Routine 05/11/2021 Cholangiocarcinoma Re sults for 8:02 AM CDT this procedure are in the results section. .GLOMERULAR FILTRATION RATE Routine 05/11/2021 Cholangiocarc inoma Results for 8:02 AM CDT this procedure are in the results section. SERUM CREATININE Routine 05/11/2021 Cholangiocarcinoma Resul ts for 8:02 AM CDT this procedure are in the results section. ELECTROLYTE PANEL Routine 05/11/2021 Cholangiocarcinoma Resu lts for 8:02 AM CDT this procedure are in the results section. BLOOD UREA NITROGEN Routine 05/11/2021 Cholangiocarcinoma Re sults for 8:02 AM CDT this procedure are in the results section. GLUCOSE LEVEL Routine 05/11/2021 Cholangiocarcinoma Results for 8:02 AM CDT this procedure are in the results section. MANUAL DIFFERENTIAL Routine 05/11/2021 Cholangiocarcinoma Re sults for 8:02 AM CDT this procedure are in the results section. Results CBC Routine 05/11/2021 Cholangiocarcinoma Results f or 8:02 AM CDT this procedure are in the results section. CANCER ANTIGEN 19-9 Routine 05/11/2021 Cholangiocarcinoma Re sults for 8:02 AM CDT this procedure are in the results section. LACTATE DEHYDROGENASE Routine 05/11/2021 Cholangiocarcinoma Results for 8:02 AM CDT this procedure are in the results section. COMPREHENSIVE METABOLIC Routine 05/11/2021 Cholangiocarcinom a PANEL 8:02 AM CDT COMPLETE BLOOD COUNT W/ Routine 05/11/2021 Cholangiocarcinom a DIFFERENTIAL 8:02 AM CDT POC GLUCOSE SCREEN Routine 05/04/2021 Results f or 7:21 AM CDT this procedure are in the results section. MANUAL DIFFERENTIAL AM 05/04/2021 Results for 6:45 AM CDT this procedure are in the results section. Results CBC AM 05/04/2021 Results for 6:45 AM CDT this procedure are in the results section. FRACTIONATED BILIRUBIN AM 05/04/2021 Resul ts for 6:45 AM CDT this procedure are in the results section. TOTAL PROTEIN AM 05/04/2021 Results for 6:45 AM CDT this procedure are in the results section. ASPARTATE AMINOTRANSFERASE AM 05/04/2021 R esults for 6:45 AM CDT this procedure are in the results section. ALANINE AMINOTRANSFERASE AM 05/04/2021 Res ults for 6:45 AM CDT this procedure are in the results section. ALKALINE PHOSPHATASE AM 05/04/2021 Results for 6:45 AM CDT this procedure are in the results section. ALBUMIN LEVEL AM 05/04/2021 Results for 6:45 AM CDT this procedure are in the results section. CALCIUM LEVEL TOTAL AM 05/04/2021 Results for 6:45 AM CDT this procedure are in the results section. .GLOMERULAR FILTRATION RATE AM 05/04/2021 Results for 6:45 AM CDT this procedure are in the results section. SERUM CREATININE AM 05/04/2021 Results for 6:45 AM CDT this procedure are in the results section. ELECTROLYTE PANEL AM 05/04/2021 Results fo r 6:45 AM CDT this procedure are in the results section. BLOOD UREA NITROGEN AM 05/04/2021 Results for 6:45 AM CDT this procedure are in the results section. GLUCOSE LEVEL AM 05/04/2021 Results for 6:45 AM CDT this procedure are in the results section. APTT Now 05/04/2021 Results for 6:45 AM CDT this procedure are in the results section. HEPATIC FUNCTION PANEL AM 05/04/2021 6:45 AM CDT PHOSPHORUS LEVEL AM 05/04/2021 Results for 6:45 AM CDT this procedure are in the results section. MAGNESIUM LEVEL AM 05/04/2021 Results for 6:45 AM CDT this procedure are in the results section. LACTATE DEHYDROGENASE AM 05/04/2021 Result s for 6:45 AM CDT this procedure are in the results section. COMPLETE BLOOD COUNT W/ AM 05/04/2021 DIFFERENTIAL 6:45 AM CDT BASIC METABOLIC PANEL, AM 05/04/2021 CALCIUM TOTAL 6:45 AM CDT MRI CERVICAL THORACIC LUMBAR Routine 05/04/2021 Results for SPINE W WO CONTRAST 3:19 AM CDT this procedure are in the results section. POC GLUCOSE SCREEN Routine 05/03/2021 Results f or 9:28 PM CDT this procedure are in the results section. POC GLUCOSE SCREEN Routine 05/03/2021 Results f or 5:43 PM CDT this procedure are in the results section. POC GLUCOSE SCREEN Routine 05/03/2021 Results f or 2:04 PM CDT this procedure are in the results section. GENERAL LABORATORY ADD ON STAT 05/03/2021 Re sults for TEST 10:53 AM CDT this procedure are in the results section. FREE T3 AM 05/03/2021 Results for 8:53 AM CDT this procedure are in the results section. ALKALINE PHOSPHATASE Now 05/03/2021 Results for 8:53 AM CDT this procedure are in the results section. FRACTIONATED BILIRUBIN Now 05/03/2021 Resul ts for 8:53 AM CDT this procedure are in the results section. TOTAL PROTEIN Now 05/03/2021 Results for 8:53 AM CDT this procedure are in the results section. ASPARTATE AMINOTRANSFERASE Now 05/03/2021 R esults for 8:53 AM CDT this procedure are in the results section. ALANINE AMINOTRANSFERASE Now 05/03/2021 Res ults for 8:53 AM CDT this procedure are in the results section. ALBUMIN LEVEL Now 05/03/2021 Results for 8:53 AM CDT this procedure are in the results section. HEPATIC FUNCTION PANEL Now 05/03/2021 8:53 AM CDT FREE THYROXINE Routine 05/03/2021 Results for 8:53 AM CDT this procedure are in the results section. MANUAL DIFFERENTIAL AM 05/03/2021 Results for 8:53 AM CDT this procedure are in the results section. Results CBC AM 05/03/2021 Results for 8:53 AM CDT this procedure are in the results section. CALCIUM LEVEL TOTAL AM 05/03/2021 Results for 8:53 AM CDT this procedure are in the results section. .GLOMERULAR FILTRATION RATE AM 05/03/2021 Results for 8:53 AM CDT this procedure are in the results section. SERUM CREATININE AM 05/03/2021 Results for 8:53 AM CDT this procedure are in the results section. ELECTROLYTE PANEL AM 05/03/2021 Results fo r 8:53 AM CDT this procedure are in the results section. BLOOD UREA NITROGEN AM 05/03/2021 Results for 8:53 AM CDT this procedure are in the results section. GLUCOSE LEVEL AM 05/03/2021 Results for 8:53 AM CDT this procedure are in the results section. THYROID STIMULATING HORMONE AM 05/03/2021 Results for 8:53 AM CDT this procedure are in the results section. HEMOGLOBIN A1C AM 05/03/2021 Results for 8:53 AM CDT this procedure are in the results section. PHOSPHORUS LEVEL AM 05/03/2021 Results for 8:53 AM CDT this procedure are in the results section. MAGNESIUM LEVEL AM 05/03/2021 Results for 8:53 AM CDT this procedure are in the results section. LACTATE DEHYDROGENASE AM 05/03/2021 Result s for 8:53 AM CDT this procedure are in the results section. COMPLETE BLOOD COUNT W/ AM 05/03/2021 DIFFERENTIAL 8:53 AM CDT BASIC METABOLIC PANEL, AM 05/03/2021 CALCIUM TOTAL 8:53 AM CDT FOLATE, RED BLOOD CELLS Now 05/03/2021 Resu lts for 8:53 AM CDT this procedure are in the results section. VITAMIN B12 LEVEL Now 05/03/2021 Results fo r 8:53 AM CDT this procedure are in the results section. CANCER ANTIGEN 19-9 Now 05/03/2021 Results for 8:53 AM CDT this procedure are in the results section. ALPHA FETOPROTEIN TUMOR Now 05/03/2021 Resu lts for MARKER 8:53 AM CDT this procedure are in the results section. POC GLUCOSE SCREEN Routine 05/03/2021 Results f or 8:09 AM CDT this procedure are in the results section. EKG, 12-LEAD (PORTABLE) Routine 05/03/2021 CREATININE URINE, RANDOM Now 05/02/2021 Res ults for 10:12 PM CDT this procedure are in the results section. POTASSIUM LEVEL URINE Now 05/02/2021 Result s for 10:12 PM CDT this procedure are in the results section. SODIUM URINE Now 05/02/2021 Results for 10:12 PM CDT this procedure are in the results section. POC GLUCOSE SCREEN Routine 05/02/2021 Results f or 10:03 PM CDT this procedure are in the results section. POC GLUCOSE SCREEN Routine 05/02/2021 Results f or 8:11 PM CDT this procedure are in the results section. POC GLUCOSE SCREEN Routine 05/02/2021 Results f or 2:36 PM CDT this procedure are in the results section. POC GLUCOSE SCREEN Routine 05/02/2021 Results f or 8:30 AM CDT this procedure are in the results section. MANUAL DIFFERENTIAL Now 05/02/2021 Results for 7:21 AM CDT this procedure are in the results section. Results CBC Now 05/02/2021 Results for 7:21 AM CDT this procedure are in the results section. CALCIUM LEVEL TOTAL Now 05/02/2021 Results for 7:21 AM CDT this procedure are in the results section. .GLOMERULAR FILTRATION RATE Now 05/02/2021 Results for 7:21 AM CDT this procedure are in the results section. SERUM CREATININE Now 05/02/2021 Results for 7:21 AM CDT this procedure are in the results section. ELECTROLYTE PANEL Now 05/02/2021 Results fo r 7:21 AM CDT this procedure are in the results section. BLOOD UREA NITROGEN Now 05/02/2021 Results for 7:21 AM CDT this procedure are in the results section. GLUCOSE LEVEL Now 05/02/2021 Results for 7:21 AM CDT this procedure are in the results section. PHOSPHORUS LEVEL Now 05/02/2021 Results for 7:21 AM CDT this procedure are in the results section. MAGNESIUM LEVEL Now 05/02/2021 Results for 7:21 AM CDT this procedure are in the results section. FRACTIONATED BILIRUBIN Now 05/02/2021 Resul ts for 7:21 AM CDT this procedure are in the results section. LACTATE DEHYDROGENASE Now 05/02/2021 Result s for 7:21 AM CDT this procedure are in the results section. COMPLETE BLOOD COUNT W/ Now 05/02/2021 DIFFERENTIAL 7:21 AM CDT BASIC METABOLIC PANEL, Now 05/02/2021 CALCIUM TOTAL 7:21 AM CDT ASPARTATE AMINOTRANSFERASE Now 05/02/2021 R esults for 7:21 AM CDT this procedure are in the results section. ALKALINE PHOSPHATASE Now 05/02/2021 Results for 7:21 AM CDT this procedure are in the results section. ALANINE AMINOTRANSFERASE Now 05/02/2021 Res ults for 7:21 AM CDT this procedure are in the results section. POC GLUCOSE SCREEN Routine 05/02/2021 Results f or 5:18 AM CDT this procedure are in the results section. CT ABDOMEN PELVIS WO Routine 05/02/2021 Results for CONTRAST 1:10 AM CDT this procedure are in the results section. CT HEAD WO CONTRAST Routine 05/02/2021 Results for 1:10 AM CDT this procedure are in the results section. URINALYSIS WITH MICROSCOPIC Now 05/02/2021 Results for IF INDICATED 12:06 AM CDT this procedure are in the results section. URINE CULTURE Now 05/02/2021 Results for 12:06 AM CDT this procedure are in the results section. XR CHEST 1 VW Routine 05/01/2021 Results for 11:12 PM CDT this procedure are in the results section. INFLUENZA A/B + COVID-19 Now 05/01/2021 Res ults for ASYMPTOMATIC-L 10:53 PM CDT this procedure are in the results section. POC CHEM 8 Routine 05/01/2021 Results for 10:49 PM CDT this procedure are in the results section. FRACTIONATED BILIRUBIN Now 05/01/2021 Resul ts for 10:21 PM CDT this procedure are in the results section. TOTAL PROTEIN Now 05/01/2021 Results for 10:21 PM CDT this procedure are in the results section. ASPARTATE AMINOTRANSFERASE Now 05/01/2021 R esults for 10:21 PM CDT this procedure are in the results section. ALANINE AMINOTRANSFERASE Now 05/01/2021 Res ults for 10:21 PM CDT this procedure are in the results section. ALKALINE PHOSPHATASE Now 05/01/2021 Results for 10:21 PM CDT this procedure are in the results section. ALBUMIN LEVEL Now 05/01/2021 Results for 10:21 PM CDT this procedure are in the results section. CALCIUM LEVEL TOTAL Now 05/01/2021 Results for 10:21 PM CDT this procedure are in the results section. .GLOMERULAR FILTRATION RATE Now 05/01/2021 Results for 10:21 PM CDT this procedure are in the results section. SERUM CREATININE Now 05/01/2021 Results for 10:21 PM CDT this procedure are in the results section. ELECTROLYTE PANEL Now 05/01/2021 Results fo r 10:21 PM CDT this procedure are in the results section. BLOOD UREA NITROGEN Now 05/01/2021 Results for 10:21 PM CDT this procedure are in the results section. GLUCOSE LEVEL Now 05/01/2021 Results for 10:21 PM CDT this procedure are in the results section. MANUAL DIFFERENTIAL STAT 05/01/2021 Results for 10:21 PM CDT this procedure are in the results section. Results CBC STAT 05/01/2021 Results for 10:21 PM CDT this procedure are in the results section. LIPASE LEVEL Now 05/01/2021 Results for 10:21 PM CDT this procedure are in the results section. AMYLASE LEVEL Now 05/01/2021 Results for 10:21 PM CDT this procedure are in the results section. LACTATE DEHYDROGENASE Now 05/01/2021 Result s for 10:21 PM CDT this procedure are in the results section. PHOSPHORUS LEVEL Now 05/01/2021 Results for 10:21 PM CDT this procedure are in the results section. MAGNESIUM LEVEL Now 05/01/2021 Results for 10:21 PM CDT this procedure are in the results section. COMPREHENSIVE METABOLIC Now 05/01/2021 PANEL 10:21 PM CDT COMPLETE BLOOD COUNT W/ Now 05/01/2021 DIFFERENTIAL 10:21 PM CDT OSI CHEST Routine 04/16/2021 Cancer Results for 7:41 AM CDT this procedure are in the results section. OSI CT ABDOMEN AND PELVIS Routine 04/15/2021 Cancer Re sults for 7:42 AM CDT this procedure are in the results section. AP IHC MSI (MLH1, MSH2, Routine 04/14/2021 Primary MSH6, PMS2) MATERIAL REQUEST 2:11 PM CDT adenocarcino ma of common bile duct AP IHC HER2/JACKSON MATERIAL Routine 04/14/2021 Primary REQUEST 2:11 PM CDT adenocarcinoma of common bile duct AP IHC BRAF [id number] MATERIAL Routine 04/14/2021 Primary REQUEST 2:11 PM CDT adenocarcinoma of common bile duct OSI MRI HEAD Routine 04/01/2021 Cancer Results for 12:23 PM CDT this procedure are in the results section. OSI CT CHEST Routine 03/31/2021 Cancer Results for 12:23 PM CDT this procedure are in the results section. OSI ERCP Routine 03/27/2021 Cancer Results for 12:23 PM CDT this procedure are in the results section. PATHOLOGY OUTSIDE Routine 03/27/2021 Results fo r INTERPRETATION this procedure are in the results section. OSI MRI ABDOMEN Routine 03/25/2021 Cancer Results for 12:24 PM CDT this procedure are in the results section. after 09/22/2020 Results XR Ankle 3 or More Views Right (09/21/2021 10:57 AM DAIRY ASSOCIATE) Specimen Impressions [id number] - 09/21/2021 11:05 AM DAIRY ASSOCIATE 1. No acute fracture or bone metastasis. 2. Old traumatic/degenerative changes at attachment of right Achilles tendon. Narrative [id number] - 09/21/2021 11:05 AM DAIRY ASSOCIATE FULL RESULT: Examination: XR Right Ankle, 3 Views, an d XR Right Heel, 2 Views, 09/21/2021 10:56 AM. Clinical History: Cholangiocarcinoma. Indication: Right ankle/heel pain. Comparison: None. Technique: 3 views of right ankle, and l ateral and Neville views of right calcaneus, 09/21/2021. Findings: Generalized osteoporosis is seen. The ankle mortise is intact. A nonunited small bone fragment in the p osterior soft tissues of the right heel at the insertion of the Achilles tendon is present. No other bone, joint or soft tissue abno rmality is noted. Procedure Note Kenny Chamberlain MD - 09/21/2021 FULL RESULT: Examination: XR Right Ankle, 3 Views, an d XR Right Heel, 2 Views, 09/21/2021 10:56 AM. Clinical History: Cholangiocarcinoma. Indication: Right ankle/heel pain. Comparison: None. Technique: 3 views of right ankle, and l ateral and Neville views of right calcaneus, 09/21/2021. Findings: Generalized osteoporosis is seen. The ankle mortise is intact. A nonunited small bone fragment in the p osterior soft tissues of the right heel at the insertion of the Achilles tendon is present. No other bone, joint or soft tissue abno rmality is noted. IMPRESSION: 1. No acute fracture or bone metastasis . 2. Old traumatic/degenerative changes a t attachment of right Achilles tendon. Performing Organization Address City/State/ZIP Code Phon e Number [id number] XR Heel 2 Views Minimum Right (09/21/2021 10:56 AM DAIRY ASSOCIATE) Specimen Impressions [id number] - 09/21/2021 11:05 AM DAIRY ASSOCIATE 1. No acute fracture or bone metastasis. 2. Old traumatic/degenerative changes at attachment of right Achilles tendon. Narrative [id number] - 09/21/2021 11:05 AM DAIRY ASSOCIATE FULL RESULT: Examination: XR Right Ankle, 3 Views, an d XR Right Heel, 2 Views, 09/21/2021 10:56 AM. Clinical History: Cholangiocarcinoma. Indication: Right ankle/heel pain. Comparison: None. Technique: 3 views of right ankle, and l ateral and Neville views of right calcaneus, 09/21/2021. Findings: Generalized osteoporosis is seen. The ankle mortise is intact. A nonunited small bone fragment in the p osterior soft tissues of the right heel at the insertion of the Achilles tendon is present. No other bone, joint or soft tissue abno rmality is noted. Procedure Note Kenny Chamberlain MD - 09/21/2021 FULL RESULT: Examination: XR Right Ankle, 3 Views, an d XR Right Heel, 2 Views, 09/21/2021 10:56 AM. Clinical History: Cholangiocarcinoma. Indication: Right ankle/heel pain. Comparison: None. Technique: 3 views of right ankle, and l ateral and Neville views of right calcaneus, 09/21/2021. Findings: Generalized osteoporosis is seen. The ankle mortise is intact. A nonunited small bone fragment in the p osterior soft tissues of the right heel at the insertion of the Achilles tendon is present. No other bone, joint or soft tissue abno rmality is noted. IMPRESSION: 1. No acute fracture or bone metastasis . 2. Old traumatic/degenerative changes a t attachment of right Achilles tendon. Performing Organization Address City/State/ZIP Code Phon e Number [id number] (ABNORMAL) POC Glucose Screen (09/19/2021 8:53 AM DAIRY ASSOCIATE)Only the most recent of 103 resultswithin the time period is included. POC Glucose 220 (H) 70 - 99 mg/dL POC [facility] Comment: RN Notified Capillary blood samples, e.g . obtained by fingerstick, may have inaccurate results in patients with decreased peripheral blood flow. Method description: All resu lts are measured using Electrochemistry test methodology. The glucose in the sample mixes with the reagents on the test strip. The reaction produces an electric current. The amount of current produced is proportional to the glucose concentration in the blood. PO Sample Type Capillary POC [facility], [address] [place] [address], [place] [address]; Auto Polisher: Pratibha Amato MD Specimen Blood Performing Organization Address [facility] Phon e Number POC [facility] .Serum Creatinine (09/19/2021 4:04 AM DAIRY ASSOCIATE)Only the most recent of62 results within the time period is included. Pathologist Sig nature Creatinine 0.56 0.51 - 0.95 mg/dL [facility] C ENTER Specimen Blood Performing Organization Address [facility] e Number [facility] CANCER Unless otherwise noted, [place] [address] CENTER all lab tests performed by: Division of Pathology and Laboratory Medicine [address] [place] [address] (ABNORMAL) .CBC (09/19/2021 4:04 AM DAIRY ASSOCIATE)Only the most recent of60 resultswithin the time period is included. WBC 4.1 4.0 - 11.0 [facility] K/uL [facility] CENTER RBC 2.33 (L) 4.00 - 5.50 [facility] M/uL [facility] CENTER Hgb 8.0 (L) 12.0 - 16.0 [facility] gm/dL [facility] Hct 23.6 (L) 37.0 - 47.0 % [facility] MCV 101 (H) 82 - 98 fL [facility] MCH 34.3 (H) 27.0 - 31.0 pg [facility] MCHC 33.9 31.0 - 36.0 [facility] gm/dL [facility] CENTER RDW-SD 54.4 (H) 35.1 - 46.3 fL [facility] RDW-CV 14.6 12.0 - 15.5 % [facility] Platelet count 342 140 - 440 K/uL [facility] MPV 8.3 4.0 - 10.4 fL [facility] INRBC 0.0 <=0.0 % [facility] Comment: CANCER CENTER The INRBC (instrument NRBC) value reflects the enumera tion of nucleated red blood cells contained in a 200uL samp le of whole blood analyzed by the instrument. This value may differ from the NRBC value reported in a manual differ ential, which is based on a 100 cell differential. Specimen Blood Performing Organization Address City/State/ZIP Code Phon e Number [facility] CANCER Unless otherwise noted, [place] [address] CENTER all lab tests performed by: Division of Pathology and Laboratory Medicine [address] [place] Glomerular Filtration Rate (09/19/2021 4:04 AM DAIRY ASSOCIATE)Only the most recent of62 resultswithin the time period is included. eGFR-AA 108 >=60 [facility] Comment: mL/min/1.73 [facility] Normal eGFR: >= 60 mL/min/1.73 m2 sq. m Note: The eGFR is calculated using the CKD-EPI equation. The eGFR declines with age. eGFR <60 mL/min/1.73 m2 is considered as "decreased". This equation should only be used for patients 18 and older. According to the National dney Foundation's Kidney Disease Outcome Quality Initiative (KDOQI) classification and 2012 Kidney Disease Improving Global Outcomes (KDIGO) Clinical Practice Guideline, the stage of CKD should be categorized based on estimated GFR. Stage Description GFR mL/min/1.73 m2 1 Normal or high GFR >=90 2 Mildly decreased GFR 60-89 3a Mildly to moderately decreased GFR 45-59 3b Moderately to severely decreased GFR 30-44 4 Severely decreased GFR 15-29 5 Kidney failure <15 eGFR-LETICIA 94 >=60 [facility] Comment: mL/min/1.73 [facility] Normal eGFR: >= 60 mL/min/1.73 m2 sq. m Note: The eGFR is calculated using the CKD-EPI equation. The eGFR declines with age. eGFR <60 mL/min/1.73 m2 is considered as "decreased". This equation should only be used for patients 18 and older. According to the National dney Foundation's Kidney Disease Outcome Quality Initiative (KDOQI) classification and 2012 Kidney Disease Improving Global Outcomes (KDIGO) Clinical Practice Guideline, the stage of CKD should be categorized based on estimated GFR. Stage Description GFR mL/min/1.73 m2 1 Normal or high GFR >=90 2 Mildly decreased GFR 60-89 3a Mildly to moderately decreased GFR 45-59 3b Moderately to severely decreased GFR 30-44 4 Severely decreased GFR 15-29 5 Kidney failure <15 Specimen Blood Performing Organization Address City/[facility] Phon e Number [facility] CANCER Unless otherwise noted, [address] all lab tests performed by: Division of Pathology and Laboratory Medicine [address] [place] [address] Fractionated Bilirubin (09/19/2021 4:04 AM DAIRY ASSOCIATE)Only the most recent of60 resultswithin the time period is included. [facility] Bili Total 0.3 <=1.2 mg/dL [facility] Comment: [facility] Indocyanine Green (ICG) may cause falsely elevated bilirubin results. Total and direct bilirubin must not be measured from samples containing indocyanine green. False elevation of total yanelis irubin can be seen in patients with IgG concentrations above 28 g/L. Bili Direct <0.2Comment: <=0.3 mg/dL [facility] Indocyanine Green [facility] (ICG) may cause falsely elevated bilirubin results. Total and direct bilirubin must not be measured from samples containing indocyanine green. Bili Indirect See NoteComment: 0.0 - 0.9 [facility] Unable to calculate mg/dL [facility] Indirect Bilirubin result due to some parameters are outside reportable range Specimen Blood Performing Organization Address City/[facility] Phon e Number [facility] CANCER Unless otherwise noted, [address] all lab tests performed by: Division of Pathology and Laboratory Medicine [address] [place] [address] (ABNORMAL) Differential (09/19/2021 4:04 AM DAIRY ASSOCIATE)Only the most recent of60 resultswithin the time period is included. Pathologist [facility] Neutrophil % 67.5 (H) 42.0 - 66.0 % [facility] Lymphocyte % 26.9 24.0 - 44.0 % [facility] Monocyte % 4.9 2.0 - 7.0 % [facility] Eosinophil % 0.5 (L) 1.0 - 4.0 % [facility] Basophil % 0.0 0.0 - 1.0 % [facility] IGRE % 0.2Comment: IGRE % 0.0 - 0.4 % [facility] count includes [facility] Metamyelocytes, Myelocytes, and Promyelocytes. Neutrophil Abs 2.78 1.70 - 7.[address] [facility] Lymphocyte Abs 1.11 1.00 - 4.[address] [facility] Monocyte Abs 0.20 0.08 - 0.[address] [facility] Eosinophil Abs 0.02 (L) 0.04 - 0.[address] [facility] Basophil Abs 0.00 0.00 - 0.[address] [facility] IG Abs 0.01 0.00 - 0.[address] [facility] Specimen Blood Performing Organization Address City/[facility] Phon e Number [facility] Unless otherwise noted, [address] all lab tests performed by: Division of Pathology and Laboratory Medicine [address] [place] BUN (09/19/2021 4:04 AM DAIRY ASSOCIATE)Only the most recent of62 resultswithin the time period is included. Pathologist Sig nature BUN 18 6 - 23 mg/dL [facility] Specimen Blood Performing Organization Address [facility] Phon e [facility] Unless otherwise noted, [address] all lab tests performed by: Division of Pathology and Laboratory Medicine [address] [place] ALT (09/19/2021 4:04 AM DAIRY ASSOCIATE)Only the most recent of60 resultswithin the time period is included. Pathologist Sig nature ALT 20 <=33 U/L [facility] Specimen Blood Performing Organization Address [facility] e Number [facility] Unless otherwise noted, [address] all lab tests performed by: Division of Pathology and Laboratory Medicine [address] [place] Aspartate Aminotransferase (09/19/2021 4:04 AM DAIRY ASSOCIATE)Only the most recent of60 resultswithin the time period is included. Pathologist Sig nature AST 21 <=32 U/L [facility] Specimen Blood Performing Organization Address [facility] e [facility] CANCER Unless otherwise noted, [address] all lab tests performed by: Division of Pathology and Laboratory Medicine [address] [place] (ABNORMAL) Total Protein (09/19/2021 4:04 AM DAIRY ASSOCIATE)Only the most recent of59 resultswithin the time period is included. Pathologist Sig nature Total Protein 5.9 (L) 6.4 - 8.3 g/dL [facility] Specimen Blood Performing Organization Address [facility] Phon e Number [facility] Unless otherwise noted, [address] all lab tests performed by: Division of Pathology and Laboratory Medicine [address] [place] Phosphorus Level (09/19/2021 4:04 AM DAIRY ASSOCIATE)Only the most recent of45 results within the time period is included. Pathologist Sig nature Phosphorus 3.6 2.5 - 4.5 mg/dL [facility] TER Specimen Blood Performing Organization Address [facility] Phon e Number [facility] Unless otherwise noted, [address] all lab tests performed by: Division of Pathology and Laboratory Medicine [address] [place] (ABNORMAL) Alkaline Phosphatase (09/19/2021 4:04 AM DAIRY ASSOCIATE)Only the most recent of 60 resultswithin the time period is included. Pathologist Sig nature Alk Phos 134 (H) 35 - 104 U/L [facility] Specimen Blood Performing Organization Address [facility] Phon e Number [facility] Unless otherwise noted, [address] all lab tests performed by: Division of Pathology and Laboratory Medicine [address] [place] Magnesium Level (09/19/2021 4:04 AM DAIRY ASSOCIATE)Only the most recent of47 resultswithin the time period is included. Pathologist Sig nature Magnesium 1.7 1.6 - 2.6 mg/dL [facility] TER Specimen Blood Performing Organization Address [facility] Phon e Number [facility] Unless otherwise noted, [address] all lab tests performed by: Division of Pathology and Laboratory Medicine [address] [place] Glucose Level (09/19/2021 4:04 AM DAIRY ASSOCIATE)Only the most recent of60 resultswithin the time period is included. Glucose Level 86 70 - 99 mg/dL [facility] Comment: [facility] Effective 05/16/16, the gluco se reference intervals have been updated based on British Diabetes Association guidelines (Standards of Medical Care in Diabetes 2016. Diabetes Care 2016; 39: S13-S22). Fasting blood glucose: Normal: 70-99 mg/dL Impaired fasting glucose (in creased risk for diabetes or pre-diabetes): 100- 125 mg/dL Diabetes mellitus: >/=126 mg/dL Random blood glucose: Normal: 70-199 mg/dL Note: Random glucose >100 mg/dL is assoc iated with increased risk for diabetes Specimen Blood Performing Organization Address [facility] Unless otherwise noted, [address] all lab tests performed by: Division of Pathology and Laboratory Medicine [address] Calcium Level (09/19/2021 4:04 AM DAIRY ASSOCIATE)Only the most recent of60 resultswithin the time period is included. Pathologist Sig nature Calcium Lvl 9.0 8.4 - 10.2 mg/dL [facility] NTER Specimen Blood Performing Organization Address [facility] Unless otherwise noted, [address] all lab tests performed by: Division of Pathology and Laboratory Medicine [address] [place] Albumin Level (09/19/2021 4:04 AM DAIRY ASSOCIATE)Only the most recent of59 resultswithin the time period is included. Pathologist Sig nature Albumin Lvl 3.6 3.5 - 5.2 gm/dL [facility] TER Specimen Blood Performing Organization Address [facility] Unless otherwise noted, [address] all lab tests performed by: Division of Pathology and Laboratory Medicine [address] [place] (ABNORMAL) Electrolyte Panel (09/19/2021 4:04 AM DAIRY ASSOCIATE)Only the most recent of60 resultswithin the time period is included. Pathologist Sig nature Sodium Lvl 135 (L) 136 - 145 mEq/L [facility] Potassium Lvl 4.1 3.5 - 5.1 mEq/L [facility] Chloride 102 98 - 107 mEq/L [facility] CO2 23 22 - 29 mEq/L [facility] Anion Gap 10 4 - 14 mEq/L [facility] Specimen Blood Performing Organization Address [facility] Unless otherwise noted, [address] all lab tests performed by: Division of Pathology and Laboratory Medicine [address] [place] (ABNORMAL) Transferrin with TIBC (09/18/2021 4:13 AM DAIRY ASSOCIATE) Pathologist Sig nature Transferrin 194 (L) 200 - 360 mg/dL [facility] TIBC 272 250 - 450 mcg/dL [facility] Specimen Blood Performing Organization Address City/[facility] Phon e Number [facility] CANCER Unless otherwise noted, [address] all lab tests performed by: Division of Pathology and Laboratory Medicine [address] [place] Iron Level (09/18/2021 4:13 AM DAIRY ASSOCIATE) Pathologist Sig nature Iron 99 37 - 145 mcg/dL [facility] TER Specimen Blood Performing Organization Address [facility] Phon e Number [facility] Unless otherwise noted, [address] all lab tests performed by: Division of Pathology and Laboratory Medicine [address] [place] (ABNORMAL) Ferritin Level (09/18/2021 4:13 AM DAIRY ASSOCIATE)Only the most recent of2 resultswithin the time period is included. Pathologist Sig nature Ferritin Lvl 970 (H) 13 - 150 ng/mL [facility] Specimen Blood Performing Organization Address [facility] Phon e Number [facility] CANCER Unless otherwise noted, [address] all lab tests performed by: Division of Pathology and Laboratory Medicine [address] [place] (ABNORMAL) Vitamin B12 Level (09/18/2021 4:13 AM DAIRY ASSOCIATE)Only the most recent of2 resultswithin the time period is included. Pathologist Sig nature Vitamin B12 Lvl >4000 (H) 211 - 946 pg/mL [facility] Specimen Blood Performing Organization Address [facility] Phon e Number [facility] CANCER Unless otherwise noted, [address] all lab tests performed by: Division of Pathology and Laboratory Medicine [facility], 12-Lead (09/18/2021)Only the most recent of4 resultswithin the time period is included. Specimen Narrative This result has an attachment that is no t available. Performing Organization Address City/[facility] Phon e Number [facility] Gastrointestinal Multiplex Panel (09/17/2021 11:07 PM DAIRY ASSOCIATE) Campylobacter Not Detected Not Detected [facility] C difficile DNA (GI Refer to [facility] Multi Panel) separate [facility] difficile DNA Assay for results Plesiomonas shigelloides Not Detected Not Detected [facility] Salmonella Not Detected Not Detected [facility] Vibrio Not Detected Not Detected [facility] Vibrio cholerae Not Detected Not Detected [facility] Yersinia enterocolitica Not Detected Not Detected [facility] Enteroaggregative E. Not Detected Not Detected [facility] coli (EAEC) [facility] Enteropathogenic E. coli Not Detected Not Detected [facility] (EPEC) [facility] Enterotoxigenic E. coli Not Detected Not Detected [facility] (ETEC) [facility] Shiga-like Not Detected Not Detected [facility] toxin-producing E. col [facility] (STEC) E. coli O157 Not Applicable Not Detected [facility] Shigella/Enteroinvasive Not Detected Not Detected [facility] E. coli (EIEC) [facility] Cryptosporidium Not Detected Not Detected [facility] Cyclospora cayetanensis Not Detected Not Detected [facility] Entamoeba histolytica Not Detected Not Detected [facility] Giardia lamblia Not Detected Not Detected [facility] Adenovirus F 40/41 Not Detected Not Detected [facility] Astrovirus Not Detected Not Detected [facility] Norovirus GI/GII Not Detected Not Detected [facility] Rotavirus A Not Detected Not Detected [facility] Sapovirus (I, II, IV and Not Detected Not Detected [facility] V) [facility] CENTER Specimen Stool Performing Organization Address City/State/ZIP Code Phon e Number [facility] Unless otherwise noted, [place] [address] [address] all lab tests performed by: Division of Pathology and Laboratory Medicine [facility] [place] (ABNORMAL) Urinalysis with Microscopic (09/17/2021 11:07 PM DAIRY ASSOCIATE)Only the most recent of3 resultswithin the time period is included. Pathologist Sig nature UA WBC <1 0 - 2 /HPF [facility] UA RBC 1 0 - 2 /HPF [facility] UA Mucous NOT SEEN Not Seen-Trace /HPF [facility] UA Bacteria 1+ (A) NOT SEEN /HPF [facility] UA Squam Epi OCC None-Occasional [facility] CANCER /HPF CENTER UA Yeast OCC (A) NOT SEEN /HPF [facility] Specimen Urine Narrative [facility] - 11:26 PM DAIRY ASSOCIATE Some reporting parameters within the Urinalysis test have changed due to the implementation of new in strumentation in the [facility], allowi ng greater sensitivity of measurement. Urinalysis results reported by the [facility] using existing instrumentation, as well as Urinalysis t esting performed manually or by backup methodology at the [facility] will remain relatively unchanged. New reporting parameters and units will now be reported for all campuses. Performing Organization Address City/State/ZIP Code Phon e Number [facility] Unless otherwise noted, [address] all lab tests performed by: Division of Pathology and Laboratory Medicine [place] (ABNORMAL) Urinalysis w/Microscopic if Indicated (09/17/2021 11:07 PM DAIRY ASSOCIATE)Only the most recent of9 resultswithin the time period is included. Pathologist Sig nature UA Color Yellow Straw-Yellow [facility] UA Appear Hazy (A) Clear [facility] UA Glucose NEG NEG mg/dL [facility] UA Bili NEG NEG [facility] UA Ketones NEG NEG mg/dL [facility] UA Spec Grav 1.016 1.003 - 1.035 [facility] UA Blood NEG NEG [facility] UA pH 6.0 5.0 - 9.0 [facility] UA Protein NEG NEG mg/dL [facility] UA Urobilinogen NEG NEG [facility] UA Nitrite NEG NEG [facility] UA Leuk Est Trace (A) NEG [facility] Specimen Urine Performing Organization Address City/State/ZIP Code Phon e Number [facility] Unless otherwise noted, [address] all lab tests performed by: Division of Pathology and Laboratory Medicine [employer] [place] (ABNORMAL) Clostridium Difficile DNA Assay (09/17/2021 11:07 PM DAIRY ASSOCIATE)Only the most recent of2 resultswithin the time period is included. C difficile DNA Positive (A) Negative [facility] C difficle Toxin EIA Negative Negative [facility] C difficile C. difficile EIA is performe d only on stools positive for C. difficile DNA and detects the presence of C. difficile toxin proteins via a rapid immunoassay. Patients positive for C. difficile DNA with a [facility] Interpretation negative EIA are less likely to have a C. diffic ile [facility] infection and may represent asymptomatic carriage. Recommend clinical assessment. If significant diarrhea present, C. difficile infection remains a possibility. Specimen Stool Performing Organization Address City/[facility]/ZIP [facility] Phon e Number [facility] Unless otherwise noted, [address] all lab tests performed by: Division of Pathology and Laboratory Medicine [address] [place] [address] (ABNORMAL) Urine Culture (09/17/2021 11:07 PM DAIRY ASSOCIATE)Only the most recent of7 resultswithin the time period is included. Pathologist Paco Final Report [id number] cfu/ml [facility] Mixture of three or CANCER CENTER more enteric organisms present. Further identification upon request within 5 days. (A) Path Review - Presence of several differen t organisms indicates specimen of poor quality and likely contaminated with normal fecal liz. Recommend submission of new specimen if clinical indicated. [facility] Urine ... CAN[facility]ER CENTER The results have been reviewed and electronically sign ed by Pathologist: Alireza Mcneill MD, PhD #[id number] (A) Specimen Urine Performing Organization Address City/[facility] Phon e Number [facility] Unless otherwise noted, [address] all lab tests performed by: Division of Pathology and Laboratory Medicine [address] [place] [address] COVID-19 (SARS-CoV-2)Asymptomatic-LT (09/17/2021 4:18 PM DAIRY ASSOCIATE) Pathologist Paco COVID19 Not Detected Not Detected [facility] (SARS-CoV-2) [facility] COVID19 SARS Inpatient Admission [facility] Indication [facility] CENTER Covid 19 Comment See Note [facility] Comment: [facility] The marv SARS-CoV-2 nucleic acid test for use on the marv [employer] System is a real-time RT-PCR assay intended for the qualitative detection of SARS-CoV-2 (COVID-19) viral RNA in nasopharyngeal swabs from either individuals suspected of COVID-19 by their healthcare provider or from any individual, including individuals without symptoms or other reasons to suspect COVID-19. A fact sheet for patients provided by the supervisor product inspection ([employer]) can be reviewed at: https://www.Stylesight.gov/media/15 3359/download. A fact sheet for Health Care providers is provided by the supervisor product inspection ([employer]) and can be reviewed at: https://www.fda.gov/media/578110/download Results must be interpreted within the context of all relevant clinical and laboratory findings and should not form the sole basis for a diagnosis or treatment decision. Positive results do not rule out bacterial infection or co- infection with other viruses. Negative results do not preclude SARS-CoV-2 infection and must be combined with clinical observations, patient history, and/or epidemiological information. This assay has been authoriz ed by the FDA for use only under Emergency Use Authorization (EUA) in laboratories that have been CLIA-certified to perform moderate-complexity and high-complexity tests. The Microbiology Laboratory at [facility] [place], CLIA Accreditation # [id number] and CAP Accreditation #[id number], verified the performance characteristics of this assay. Internal controls are used to monitor all stages of the test process. Specimen Nasopharyngeal Swab Performing Organization Address City/State/ZIP Code Phon e Number [facility] CANCER Unless otherwise noted, [place] [address] CENTER all lab tests performed by: Division of Pathology and Laboratory Medicine [facility] CT Abdomen Pelvis with Contrast (09/17/2021 1:07 PM DAIRY ASSOCIATE)Only the most recent of 6 resultswithin the time period is included. Specimen Impressions [id number] - 09/17/2021 2:24 PM DAIRY ASSOCIATE Mild thickening of the wall of the dista l colon is seen suggestive of a mild colitis. The primary biliary tumor is unchanged. Bilateral internal/external biliary catheters are in place and previously seen intra-and extrahepatic biliary dilatation has improved. Borderline retroperitoneal nodes are sta ble and can be followed. Narrative [id number] - 09/17/2021 2:24 PM DAIRY ASSOCIATE FULL RESULT: Examination: CT ABDOMEN PELVIS W CONTRAS T, 09/17/2021 1:07 PM Clinical History: Cholangiocarcinoma Indication: lower abdominal pain Comparison: 08/20/2021 Technique: CT of the abdomen and pelvis was performed with intravenous contrast. Findings: LUNG BASES: Bilateral breast implants are seen. Ther e is bibasilar atelectasis, unchanged. ABDOMEN and PELVIS: Thickening and enhancement of the wall o f the common, left and right hepatic ducts (6:48) consistent with the primary cholangiocarcinoma is unchanged. Vascular involvement is unchanged. Internal/external biliary drains are see n in the left and right lobes. Intra and extrahepatic biliary dilatation has improved. A subcentimeter hypodensity in liver seg ment (6:44) likely represents a cyst. The spleen pancreas and adrenals are unr emarkable. Renal cysts are seen. Borderline 9 mm aortocaval nodes (6:65, 6:72) are unchanged. There is mild thickening of the wall of the rectum, distal transverse, descending and sigmoid colon suggestive of colitis. The uterus is absent. Degenerative changes only are seen in th e skeleton. No bone metastases are seen. There is a right prosthetic hip. Procedure Note Tony Ellis MD - 09/17/2021 FULL RESULT: Examination: CT ABDOMEN PELVIS W CONTRAS T, 09/17/2021 1:07 PM Clinical History: Cholangiocarcinoma Indication: lower abdominal pain Comparison: 08/20/2021 Technique: CT of the abdomen and pelvis was performed with intravenous contrast. Findings: LUNG BASES: Bilateral breast implants are seen. Ther e is bibasilar atelectasis, unchanged. ABDOMEN and PELVIS: Thickening and enhancement of the wall o f the common, left and right hepatic ducts (6:48) consistent with the primary cholangiocarcinoma is unchanged. Vascular involvement is unchanged. Internal/external biliary drains are see n in the left and right lobes. Intra and extrahepatic biliary dilatation has improved. A subcentimeter hypodensity in liver seg ment (6:44) likely represents a cyst. The spleen pancreas and adrenals are unr emarkable. Renal cysts are seen. Borderline 9 mm aortocaval nodes (6:65, 6:72) are unchanged. There is mild thickening of the wall of the rectum, distal transverse, descending and sigmoid colon suggestive of colitis. The uterus is absent. Degenerative changes only are seen in th e skeleton. No bone metastases are seen. There is a right prosthetic hip. IMPRESSION: Mild thickening of the wall of the dista l colon is seen suggestive of a mild colitis. The primary biliary tumor is unchanged. Bilateral internal/external biliary catheters are in place and previously seen intra-and extrahepatic biliary dilatation has improved. Borderline retroperitoneal nodes are sta ble and can be followed. Performing Organization Address City/State/ZIP Code Phon e Number [id number] (ABNORMAL) POC Chem 8 without Hemoglobin and Hematocrit (09/17/2021 11:42 AM DAIRY ASSOCIATE)Only the most recent of2 resultswithin the time period is included. POC NA 130 (L) 138 - 146 POC [facility] mEq/L POC K 4.6 3.5 - 4.9 POC [facility] Comment: mEq/L Method description: The i-ST AT is an analyzer used for in vitro quantification of various analytes in whole blood. The device uses a single disposable cartridge which contains microfabricated sensors, a calibration solution, fluidics system, and a waste chamber. Each test cartridge contains chemically sensitive biosensors on a silicon chip that are configured to perform specific tests. The microfabricated sensors measure analyte concentration by an electrochemical assay. POC CL 95 (L) 98 - 109 POC [facility] mEq/L POC VTCO2 21 (L) 24 - 29 mEq/L [facility] POC Anion Gap 19 10 - 20 POC [facility] mmol/L POC BUN 28 (H) 8 - 26 mg/dL [facility] POC Crea 0.5 (L) 0.6 - 1.3 POC [facility] Comment: mg/dL Medications, especially hydr oxyurea or supplements, such as ascorbate, can interfere with test results causing a falsely and significantly higher result than expected. If a problem is suspected with a patient's result, a sample should be sent to the laboratory for confirmatory testing. Method description: The i-ST AT is an analyzer used for in vitro quantification of various analytes in whole blood. The device uses a single disposable cartridge which contains microfabricated sensors, a calibration solution, fluidics system, and a waste chamber. Each test cartridge contains chemically sensitive biosensors on a silicon chip that are configured to perform specific tests. The microfabricated sensors measure analyte concentration by an electrochemical assay. POC eGFR-AA 113 >=60 POC [facility] Comment: mL/min/1.73 Normal eGFR >= 60 mL/min/1.73 m2 m2 The eGFR is calculated using the CKD-EPI equation. The eGFR declines with age. eGFR <60 mL/min/1.73 m2 is considered as "decreased" This equation should only be used for patients 18 and older. According to the National Ki dney Foundation's Kidney Disease Outcome Quality Initiative (KDOQI) classification and 2012 Kidney Disease Improving Global Outcomes (KDIGO) Clinical Practice Guideline, the stage of CKD should be categorized based on estimated GFR. Stage Description GFR mL/min/1.73 m2 1 Kidney damage with normal or high GFR >=90 2 Kidney damage with mild decrease in GFR 60-89 3a Mild to moderate decrease in GFR 45-59 3b Moderate to severe decrease in GFR 30-44 4 Severe decrease in GFR 15-29 5 Kidney failure <15 (or dialysis) POC eGFR-LETICIA 97 >=60 POC [facility] Comment: mL/min/1.73 Normal eGFR >= 60 mL/min/1.73 m2 m2 The eGFR is calculated using the CKD-EPI equation. The eGFR declines with age. eGFR <60 mL/min/1.73 m2 is considered as "decreased" This equation should only be used for patients 18 and older. According to the National [facility]'s Kidney Disease Outcome Quality Initiative (KDOQI) classification and 2012 Kidney Disease Improving Global Outcomes (KDIGO) Clinical Practice Guideline, the stage of CKD should be categorized based on estimated GFR. Stage Description GFR mL/min/1.73 m2 1 Kidney damage with normal or high GFR >=90 2 Kidney damage with mild decrease in GFR 60-89 3a Mild to moderate decrease in GFR 45-59 3b Moderate to severe decrease in GFR 30-44 4 Severe decrease in GFR 15-29 5 Kidney failure <15 (or dialysis) POC Glucose 131 (H) 70 - 99 mg/dL [facility] POC Ion Ca 1.29 1.12 - 1.32 POC [facility] mmol/L POC Sample Type Venous POC [facility] POC Clean Dev Yes POC [facility], [address] [place] [id number]; Auto Polisher: Pratibha Amato MD Specimen Blood Performing Organization Address City/State/ZIP Code Phon e Number POC [facility] Glucose, Random (09/17/2021 11:40 AM DAIRY ASSOCIATE)Only the most recent of2 resultswithin the time period is included. Glucose Random 134 70 - 199 mg/dL [facility] Comment: [facility]ER CENTER Effective 05/16/16, the gluco se reference intervals have been updated based on British Diabetes Association guidelines (Standards of Medical Care in Diabetes 2016. Diabetes Care 2016; 39: S13-S22). Fasting blood glucose: Normal: 70-99 mg/dL Impaired fasting glucose (in creased risk for diabetes or pre-diabetes): 100- 125 mg/dL Diabetes mellitus: >/=126 mg/dL Random blood glucose: Normal: 70-199 mg/dL Note: Random glucose >100 mg/dL is assoc iated with increased risk for diabetes Specimen Blood Performing Organization Address [facility] Phon e Number [facility] Unless otherwise noted, [address] all lab tests performed by: Division of Pathology and Laboratory Medicine [address] [place] Anion Gap (09/17/2021 11:40 AM DAIRY ASSOCIATE)Only the most recent of2 resultswithin the time period is included. Pathologist Sig nature Anion Gap 13 4 - 14 mEq/L [facility] Specimen Blood Performing Organization Address [facility] Unless otherwise noted, [address] all lab tests performed by: Division of Pathology and Laboratory Medicine [address] [place] Lactic Acid, Venous (09/17/2021 11:40 AM DAIRY ASSOCIATE)Only the most recent of4 results within the time period is included. Pathologist Sig nature V Lactate 1.5 0.5 - 1.6 mmol/L [facility] CE NTER Specimen Blood Performing Organization Address [facility] Unless otherwise noted, [address] all lab tests performed by: Division of Pathology and Laboratory Medicine [address] [place] (ABNORMAL) Sodium Level (09/17/2021 11:40 AM DAIRY ASSOCIATE)Only the most recent of2 resultswithin the time period is included. Pathologist Sig nature Sodium Lvl 128 (L) 136 - 145 mEq/L [facility] TER Specimen Blood Performing Organization Address [facility] Unless otherwise noted, [address] all lab tests performed by: Division of Pathology and Laboratory Medicine [address] [place] Potassium Level (09/17/2021 11:40 AM DAIRY ASSOCIATE)Only the most recent of3 resultswithin the time period is included. Pathologist Sig nature Potassium Lvl 4.4 3.5 - 5.1 mEq/L [facility] Specimen Blood Performing Organization Address [facility] Phon e Number [facility] Unless otherwise noted, [address] all lab tests performed by: Division of Pathology and Laboratory Medicine [address] [place] Lipase Level (09/17/2021 11:40 AM DAIRY ASSOCIATE)Only the most recent of5 resultswithin the time period is included. Pathologist Sig nature Lipase Lvl 32 13 - 60 U/L [facility] Specimen Blood Performing Organization Address [facility] Phon e Number [facility] Unless otherwise noted, [address] all lab tests performed by: Division of Pathology and Laboratory Medicine [address] [place] (ABNORMAL) Chloride Level (09/17/2021 11:40 AM DAIRY ASSOCIATE)Only the most recent of2 resultswithin the time period is included. Pathologist Sig nature Chloride 95 (L) 98 - 107 mEq/L [facility] Specimen Blood Performing Organization Address [facility] Phon e Number [facility] Unless otherwise noted, [address] all lab tests performed by: Division of Pathology and Laboratory Medicine [address] [place] (ABNORMAL) Carbon Dioxide Level (09/17/2021 11:40 AM DAIRY ASSOCIATE)Only the most recent of 2 resultswithin the time period is included. Pathologist Sig nature CO2 20 (L) 22 - 29 mEq/L [facility] R Specimen Blood Performing Organization Address [facility] Phon e Number [facility] Unless otherwise noted, [address] all lab tests performed by: Division of Pathology and Laboratory Medicine [address] [place] Amylase Level (09/17/2021 11:40 AM DAIRY ASSOCIATE)Only the most recent of5 resultswithin the time period is included. Pathologist Sig nature Amylase Lvl 46 28 - 100 U/L [facility] Specimen Blood Performing Organization Address City/[facility] Phon e Number [facility] Unless otherwise noted, [address] all lab tests performed by: Division of Pathology and Laboratory Medicine [address] [place] (ABNORMAL) CA 19-9 (09/13/2021 6:45 AM DAIRY ASSOCIATE)Only the most recent of12 results within the time period is included. CA 19-9 251.6 (H) <=35.0 U/mL [facility] Comment: [facility] Results greater than 9500 U/ mL may not be reliable due to matrix effect with extended dilution as it exceeds the supervisor product inspection's recommended limit. Caution should be exercised when interpreting such valu es and done in conjunction with clinical context. This test is measured by avelino ctrochemiluminescence immunoassay on Seth Marv immunoassay analyzers. Results obtained in different methods are not interchangeable. Testing performed at [facility], [address] [facility], [place] [address] Specimen Blood Performing Organization Address City/State/ZIP [place] [id number] XR Abdomen 1 View Portable (08/25/2021 3:23 AM CDT)Only the most recent of2 resultswithin the time period is included. Specimen Impressions [id number] - 08/25/2021 7:55 AM CDT Moderate degree of retained feces. Slight kinking of the left biliary drain age catheter is noted, to be correlated clinically. 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 Por tions of the lowermost pelvis are excluded by collimation. This technique is limited for the detection of any potential free intraperitoneal air. Findings: Internal/external right and left hepatic biliary pigtail drainage catheters redemonstrated. EKG wires overlie the patient. Nonobstructed bowel gas pattern. Moderate retained feces is noted within the colon. Unchanged osseous structures. Partially visualized right hip prosthesis again noted. 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 Por tions of the lowermost pelvis are excluded by collimation. This technique is limited for the detection of any potential free intraperitoneal air. Findings: Internal/external right and left hepatic biliary pigtail drainage catheters redemonstrated. EKG wires overlie the patient. Nonobstructed bowel gas pattern. Moderate retained feces is noted within the colon. Unchanged osseous structures. Partially visualized right hip prosthesis again noted. IMPRESSION: Moderate degree of retained feces. Slight kinking of the left biliary drain age catheter is noted, to be correlated clinically. Performing Organization Address [facility] Phon e Number [id number] (ABNORMAL) Cardiac Panel (08/25/2021 2:35 AM CDT) CK <12 (L) 26 - 192 U/L [facility] CK MB <2.0 <=5.3 ng/mL [facility] Troponin T <6 <=18 ng/L [facility] Comment: [facility] < 19 ng/L Suggest retest at 3 to 6 hours later to rule out myocardial infarction >= 19 to <=52 ng/L Possible myocardial injury. Suggest retest at 3 hours. - a change of < 20 ng/L, retest at 6 hours - a change of >= 20 ng/L, suggestive of myocardial infarction > 52 ng/L Suggestive of myocardial infarction Critical value will be repor robinson when cTnT is > 52 ng/L and only reported for the first in a series. Hemolyzed specimens with Hem olysis Index >100 (100 mg/dl or moderate hemolysis) may cause interferences and falsely low results. Specimen Blood Performing Organization Address City/[facility] Phon e Number [facility] CANCER Unless otherwise noted, [place] [address] [address] all lab tests performed by: Division of Pathology and Laboratory Medicine [address] [place] [address] US Chest (08/23/2021 4:35 PM CDT) Specimen Impressions [id number] - 08/23/2021 5:32 PM CDT No evidence of drainable fluid collection in the left anterior chest wall at the site of port. However, evaluation is somewhat limited due to presence of skin bandage. Narrative [id number] - 08/23/2021 5:32 PM CDT FULL RESULT: Examination: US CHEST 08/23/2021 4:35 PM Clinical History: Cholangiocarcinoma. Indication: Pain around the port site Comparison: None. Technique: Real-time sonographic imaging of left chest wall was performed. Grayscale and color Doppler Images were obtained in multiple scanning planes. Findings: No evidence of drainable fluid collectio n in the left anterior chest wall at the site of port. However, evaluation is somewhat limited due to presence of skin bandage. Procedure Note Agustín Tobias MD - 08/23/2021 FULL RESULT: Examination: US CHEST 08/23/2021 4:35 PM Clinical History: Cholangiocarcinoma. Indication: Pain around the port site Comparison: None. Technique: Real-time sonographic imaging of left chest wall was performed. Grayscale and color Doppler Images were obtained in multiple scanning planes. Findings: No evidence of drainable fluid collectio n in the left anterior chest wall at the site of port. However, evaluation is somewhat limited due to presence of skin bandage. IMPRESSION: No evidence of drainable fluid collectio n in the left anterior chest wall at the site of port. However, evaluation is somewhat limited due to presence of skin bandage. Performing Organization Address City/State/ZIP Code Phon e Number [id number] IR EXCHANGE OF BILIARY DRAINAGE CATHETER (08/22/2021 11:03 AM CDT)Only the most recent of6 resultswithin the time period is included. Specimen Narrative Joya Solorzano MD - 08/22/2021 5:56 PM CD T Date of Procedure: 08/22/21 Attending Physician: Joya Solorzano MD Dog Hair Clipper: Giovani Darby Pre Procedure Diagnosis: Cholangiocarc inoma [[id number]] Post Procedure Diagnosis: Unchanged Indication: Rising bilirubin / Inadequ ate drainage Title of Procedure: Percutaneous Image-Guided Exchange of Bi liary Drainage Catheter(s). Operative Findings: Percutaneous image-guided exchange of bi lateral internal / external biliary drainage catheter(s). Consent: The procedure, risks, indicat ions and alternatives were explained. All questions were answered a nd informed consent was obtained. I have reviewed the history and physical dictated by the mid-level practitioner / fellow. Sedation/Anesthesia: Anesthesia provided by Anesthesia Depart ment. Procedure in Detail: A time out was performed prior to the st art of the procedure and the correct patient, procedure, presence of consent, site, and side were confirmed with all members of the team. The patient was placed in a supine posit ion on the fluoroscopy table and the upper abdomen and catheter were prep ped and draped in the usual sterile fashion. Lidocaine 1% was used f or local anesthesia. A director integrated view was obtained of the abdomen and catheter . A cholangiogram was performed through the catheter(s). The existing 10 Serbian right internal / external biliary catheter was cut and was exchanged over a wire for a new 10 Serbian extended side-hole biliary catheter which was formed in the duodenum. The catheter was secured to the skin with suture. A similar technique was used to access t he left 12 Serbian internal / external biliary catheter which was cut and exchanged over a wire for a new 12 Serbian biliary catheter, with 4 a dditional cut side holes, was formed in the duodenum. The catheter was secured to the skin with suture. Additional Comments: None Estimated Blood Loss: Minimal Specimens Removed: No Immediate Complications: None Disposition: PACU Plan: Cap catheter for internal drainage. Return for routine exchange in 2 [facility] I certify my physical presence at the [facility] of the procedure. I personally reviewed the image(s) and the resident's / fellow's interpretation and agree with the written report. X-ray Chest 1 View Portable (08/21/2021 11:12 PM CDT) Specimen Impressions [id number] - 08/22/2021 6:56 AM CDT 1. Right chest port tip projects over the cavoatrial junction. No pneumothorax. 2. Bibasilar airspace opacities likely represent subsegmental atelectasis. Superimposed infection is not excluded. I personally reviewed these image(s) sue paz with the resident's/fellow's interpretations, certify that if a procedure was performed I was physically present, and agree with the final report. 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 Findings: Right chest port tip projects over the cavoatrial junction. Internal/external biliary drainage catheter partially seen. Bibasilar predominant airspace opacities . There is no pleural effusion or pneumothorax. There is no mediastinal or hilar adenopathy. Cardiac silhouette is normal. 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 Findings: Right chest port tip projects over the cavoatrial junction. Internal/external biliary drainage catheter partially seen. Bibasilar predominant airspace opacities . There is no pleural effusion or pneumothorax. There is no mediastinal or hilar adenopathy. Cardiac silhouette is normal. IMPRESSION: 1. Right chest port tip projects over t he cavoatrial junction. No pneumothorax. 2. Bibasilar airspace opacities likely represent subsegmental atelectasis. Superimposed infection is not excluded. I personally reviewed these image(s) sue pugh with the resident's/fellow's interpretations, certify that if a procedure was performed I was physically present, and agree with the final report. Performing Organization Address City/State/ZIP Code Phon e Number [id number] Blood Culture (08/21/2021 2:20 PM CDT)Only the most recent of10 resultswithin the time period is included. Final Report No growth [facility] Path Review - Immunity and antibiotic use may render culture negative. Ongoing infection requires repeat culture. [facility] Bottle/Isolator The results have been review ed and electronically signed by Pathologist: [facility] ROYCE ALY MD #[id number] Specimen Blood Performing Organization Address City/State/ZIP Code Phon e Number [facility] CANCER Unless otherwise noted, [place] [address] CENTER all lab tests performed by: Division of Pathology and Laboratory Medicine [address] [place] [address] Echocardiogram 2D Complete (08/21/2021 11:23 AM CDT) Specimen Narrative ISCV - 08/21/2021 3:47 PM CDT Echocardiographic Report Interpretation Summary A complete two-dimensional transthoracic echocardiogram was performed (2D, M- mode, Spectral and color Doppler). The study was technically adequate. Compared to prior study, there is no significant change. LV normal in size with low normal systol ic function. LV ejection fraction (LVEF) is in the ra nge of 61% (calculated by method of discs). The right ventricle is normal in size. A tria are normal in size. Right ventricular systolic pressure is n ormal. There is no pericardial effusion. Left Ventricle: LV normal in size with low normal systol ic function. There is normal left ventricular wall thickness. LV ejection fraction (LVEF) is in the range of 61% (calculated by method of discs). No regional wall motion abnormalities noted. I WMSI = 1.00 % Normal = 1 00 Segments Size X - Cannot 2 - 1-2 small Interpret 1 - Normal Hypokine tic 3 - Akinetic 4 - Dyskinetic3- 5 moderate 5 - Aneurysmal 6-14 large 15-16 diffuse 3D imaginD volumes were not performed in this st udy. Cardiac Mechanics/Speckle Tracking Imagi ng: Speckle tracking imaging was not perform ed in this study. (Liudmila Study). Diastology: Impaired LV relaxation pattern of diasto lic dysfunction, Doppler suggests normal LA pressures. Right Ventricle: The right ventricle is normal in size an d function. Normal RV systolic function using TAPSE criteria. Atria: Atria are normal in size. Mitral Valve: Mitral annular calcification is present. There is no mitral valve stenosis. There is trace mitral regurgitation. Tricuspid Valve: The tricuspid valve is not well visualiz ed, but is grossly normal. There is trace tricuspid regurgitation. Right ventricular systolic pressure is normal. Aortic Valve: The aortic valve is trileaflet. The aort ic valve opens well. No aortic regurgitation is present. Pulmonic Valve: The pulmonic valve is not well seen, but is grossly normal. There is no pulmonic valvular stenosis. Trace pulmonic valvular regurgitation. Great Vessels: The aortic root is normal size. The infe rior vena cava demonstrates normal size and normal respiratory variation. Pericardium/Pleural: There is no pericardial effusion. Preliminary Reviewer Preliminary Interpretation: Osman Franklin. MMode/2D Measurements IVSd: 0.83 cm LVIDd: 3.9 cm LVIDs: 2.6 cm LVPWd: 0.82 cm FS: 32.8 % Ao root diam: 3.3 cm Ao root area: 8.7 cm2 LA dimension: 3.0 cm LVOT diam: 2.2 cm EDV(MOD-A4C): 86.3 ml ESV(MOD-A4C): 32.7 ml LVOT area: 3.8 cm2 EF(MOD-A4C): 62.1 % EDV(MOD-A2C): 79.7 ml ESV(MOD-A2C): 29.5 ml EDV(MOD-bp): 83.6 ml EF(MOD-A2C): 63.0 % ESV(MOD-bp): 32.9 ml EF(MOD-bp): 60.7 % LAV(MOD-A2C): 52.4 ml EDV (MOD-bp) Index: 60.5 ml/m2 LAV(MOD-A4C): 31.7 ml LAV(MOD-bp): 45.8 ml LAV(MOD-bp) Indexed: 33.1 ml/m2 ESV (MOD-bp) Index: 23.8 ml/m2 RWT: 0.42 cm TAPSE (>1.6): 2.1 cm Doppler Measurements MV E max danielito: 96.5 cm/sec MV V2 max: 121.0 cm/sec MV A max danielito: 133.7 cm/sec MV max P.9 mmHg MV E/A: 0.72 MV V2 mean: 69.0 cm/sec MV mean P.2 mmHg MV V2 VTI: 27.6 cm MVA(VTI): 2.7 cm2 MV P1/2t max danielito: 96.5 cm/sec Ao V2 max: 124.6 cm/sec MV P1/2t: 58.0 msec Ao max P.2 mmHg Ao V2 mean: 89.0 cm/sec MVA(P1/2t): 3.8 cm2 Ao mean P.4 mmHg MV dec slope: 487.8 cm/sec2 Ao V2 VTI: 26.2 cm GALEN(I,D): 2.8 cm2 GALEN(V,D): 2.6 cm2 LV V1 max P.9 mmHg SV(LVOT): 74.3 ml LV V1 mean P.8 mmHg LV V1 max: 84.6 cm/sec LV V1 mean: 64.7 cm/sec LV V1 VTI: 19.8 cm PA V2 max: 98.5 cm/sec PI max danielito: 125.7 cm/sec PA max P.9 mmHg PI max P.3 mmHg PA V2 mean: 67.7 cm/sec PI dec slope: 110.2 cm/sec2 PA mean P.0 mmHg PA V2 VTI: 18.2 cm TR max danielito: 206.4 cm/sec RAP systole: 3.0 mmHg TR max P.0 mmHg RVSP(TR): 20.0 mmHg GALEN Index (I,D): 2.1 GALEN Index (V,D): 1.8 Dimensionless Index: 0.68 E/e' (avg): 12.9 E/e' (lat): 10.5 E/e' (sept): 16.6 Procedure Note Dyllan Booth MD - 08/21/20 21 Echocardiographic Report Interpretation Summary A complete two-dimensional transthoracic echocardiogram was performed (2D, M- mode, Spectral and color Doppler). The study was technically adequate. Compared to prior study, there is no significant change. LV normal in size with low normal systol ic function. LV ejection fraction (LVEF) is in the ra nge of 61% (calculated by method of discs). The right ventricle is normal in size. A tria are normal in size. Right ventricular systolic pressure is n ormal. There is no pericardial effusion. Left Ventricle: LV normal in size with low normal systol ic function. There is normal left ventricular wall thickness. LV ejection fraction (LVEF) is in the range of 61% (calculated by method of discs). No regional wall motion abnormalities noted. I WMSI = 1.00 % Normal = 100 Segments Size X - Cannot 2 - 1-2 small Interpret 1 - Normal Hypokinetic 3 - Akinetic 4 - Dyskinetic3-5 moderate 5 - Aneurysmal 6-14 large 15-16 diffuse 3D imaginD volumes were not performed in this st udy. Cardiac Mechanics/Speckle Tracking Imagi ng: Speckle tracking imaging was not perform ed in this study. (Liudmila Study). Diastology: Impaired LV relaxation pattern of diasto lic dysfunction, Doppler suggests normal LA pressures. Right Ventricle: The right ventricle is normal in size an d function. Normal RV systolic function using TAPSE criteria. Atria: Atria are normal in size. Mitral Valve: Mitral annular calcification is present. There is no mitral valve stenosis. There is trace mitral regurgitation. Tricuspid Valve: The tricuspid valve is not well visualiz ed, but is grossly normal. There is trace tricuspid regurgitation. Right ventricular systolic pressure is normal. Aortic Valve: The aortic valve is trileaflet. The aort ic valve opens well. No aortic regurgitation is present. Pulmonic Valve: The pulmonic valve is not well seen, but is grossly normal. There is no pulmonic valvular stenosis. Trace pulmonic valvular regurgitation. Great Vessels: The aortic root is normal size. The infe rior vena cava demonstrates normal size and normal respiratory variation. Pericardium/Pleural: There is no pericardial effusion. Preliminary Reviewer Preliminary Interpretation: Osman Franklin. MMode/2D Measurements IVSd: 0.83 cm LVIDd: 3.9 cm LVIDs: 2.6 cm LVPWd: 0.82 cm FS: 32.8 % Ao root janki m: 3.3 cm Ao root are a: 8.7 cm2 LA dimensio n: 3.0 cm LVOT diam: 2.2 cm EDV(MOD-A4C ): 86.3 ml ESV(MOD-A4C ): 32.7 ml LVOT area: 3.8 cm2 EF(MOD-A4C) : 62.1 % EDV(MOD-A2C): 79.7 ml ESV(MOD-A2C): 29.5 ml EDV(MOD-bp) : 83.6 ml EF(MOD-A2C): 63.0 % ESV(MOD-bp) : 32.9 ml EF(MOD-bp): 60.7 % LAV(MOD-A2C): 52.4 ml EDV (MOD-bp ) Index: 60.5 ml/m2 LAV(MOD-A4C): 31.7 ml LAV(MOD-bp): 45.8 ml LAV(MOD-bp) Indexed: 33.1 ml/m2 ESV (MOD-bp) Index: 23.8 ml/m2 RWT: 0.42 c m TAPSE (>1.6): 2.1 cm Doppler Measurements MV E max danielito: 96.5 cm/sec MV V2 max: 121.0 cm/sec MV A max danielito: 133.7 cm/sec MV max P.9 mmHg MV E/A: 0.72 MV V2 mean: 69.0 cm/sec MV polina n P.2 mmHg MV V2 VTI: 27.6 cm MVA(VT I): 2.7 cm2 MV P1/2t max danielito: 96.5 cm/sec Ao V2 max: 124.6 cm/sec MV P1/2t: 58.0 msec Ao max P.2 mmHg Ao V2 mean: 89.0 cm/sec MVA(P1/2t): 3.8 cm2 Ao polina n P.4 mmHg MV dec slope: 487.8 cm/sec2 Ao V2 VTI: 26.2 cm GALEN(I, D): 2.8 cm2 GALEN(V, D): 2.6 cm2 LV V1 max P.9 mmHg SV(LVO T): 74.3 ml LV V1 mean P.8 mmHg LV V1 max: 84.6 cm/sec LV V1 mean: 64.7 cm/sec LV V1 VTI: 19.8 cm PA V2 max: 98.5 cm/sec PI max danielito: 125.7 cm/sec PA max P.9 mmHg PI max P.3 mmHg PA V2 mean: 67.7 cm/sec PI dec slope: 110.2 cm/sec2 PA mean P.0 mmHg PA V2 VTI: 18.2 cm TR max danielito: 206.4 cm/sec RAP sy stole: 3.0 mmHg TR max P.0 mmHg RVSP(TR): 20.0 mmHg GALEN Index (I,D): 2.1 GALEN In dex (V,D): 1.8 Dimensionless Index: 0.68 E/e' ( avg): 12.9 E/e' (lat): 10.5 E/e' ( sept): 16.6 Performing Organization Address City/State/ZIP Code Phon e Number ISCV Tip Verification Central Vascular Access Device (08/20/2021 11:23 PM CDT) Nivia Rowe PA - 08/20/2021 11:23 PM CDT ALFREDO Harrison 08/20/2021 11:26 PM Central Vascular Access Device Tip Verif ication Performed by: ALFREDO Harrison Authorized by: ALFREDO Harrison CVAD Properties Date device placed: 05/31/2021 Placed by: Otilio Badillo MD Device placement location: [facility] Catheter Type: Implanted venous port Vein location: Internal jugular vein Laterality: Right Tip Verification Properties Diagnostic image available: Intraopera tive and/or flouroscopic image Tip location per report: Superior vena cava Name of RN notified for LDA documentatio n of verification: Tracee, RN Tip in good position and cleared for inf usion (ABNORMAL) POC VBG+Lac (08/19/2021 11:00 PM CDT)Only the most recent of3 results within the time period is included. POC VB pH 7.43 (H) 7.31 - 7.41 POC TELCOR POC VB pCO2 38 (L) 41 - 51 mmHg POC [facility]ELCOR POC VB pO2 44 mmHg POC [facility] POC VB TCO2 26 24 - 29 mEq/L POC [facility] POC VB Bicarb 25 23 - 28 POC [facility] mmol/L POC VB Base Ex 0 -2 - 3 mmol/L POC [facility] POC VB O2 Sat 81 % POC [facility] POC VB LAC 2.1 (H) 0.9 - 1.7 POC [facility] Comment: mmol/L Method description: The i-ST AT is an analyzer used for in vitro quantification of various analytes in whole blood. The device uses a single disposable cartridge which contains microfabricated sensors, a calibration solution, fluidics system, and a waste chamber. Each test cartridge contains chemically sensitive biosensors on a silicon chip that are configured to perform specific tests. The microfabricated sensors measure analyte concentration by an electrochemical assay. POC Sample Type Venous POC [facility] POC Clean Dev Yes POC [facility], [address] [place] [id number]; Auto Polisher: Pratibha Amato MD Specimen Blood Performing Organization Address City/State/ZIP Code Phon e Number POC TELCOR Respiratory Viral Panel + COVID-19, Nasopharyngeal Swab (08/19/2021 10:35 PM CDT)Only the most recent of3 resultswithin the time period is included. RMP Source Not Applicable [facility] Adenovirus Not Detected Not Detected [facility] Coronavirus 229E Not Detected Not Detected [facility] Coronavirus HKU1 Not Detected Not Detected [facility] Coronavirus NL63 Not Detected Not Detected [facility] Coronavirus OC43 Not Detected Not Detected [facility] COVID19 (SARS-CoV-2) Not Detected Not Detected [facility] Human Metapneumovirus Not Detected Not Detected [facility] Human Not Detected Not Detected [facility] Rhinovirus/Enterovirus [facility] Influenza A Not Detected Not Detected [facility] Influenza A H1 Not Detected Not Detected [facility] Influenza A H1 2009 Not Detected Not Detected [facility] Influenza A H3 Not Detected Not Detected [facility] Influenza B Not Detected Not Detected [facility] Parainfluenza 1 Not Detected Not Detected [facility] Parainfluenza 2 Not Detected Not Detected [facility] Parainfluenza 3 Not Detected Not Detected [facility] Parainfluenza 4 Not Detected Not Detected [facility] Respiratory Syncytial Not Detected Not Detected [facility] Virus [facility] Bordetella Not Detected Not Detected [facility] Parapertussis [facility] Bordetella pertussis Not Detected Not Detected [facility] Chlamydiophila Not Detected Not Detected [facility] pneumoniae [facility] Mycoplasma pneumoniae Not Detected Not Detected [facility] Specimen Nasopharyngeal Swab Narrative [facility] - 1 12:45 AM CDT The BioFire RP2.1 is a real-time, nested multiplexed polymerase chain reaction test designed to simul taneously identify nucleic acids from 22 different viruses and bacteria associated with respiratory tract infection, including SARS-CoV-2, from a single nasopharyngeal swab (PERFECT BINDER OPERATOR) specimen obtai kina from individuals suspected of respiratory tract infections, including COVID-19. Results must be interpreted within the c ontext of all relevant clinical and laboratory findings and should not form the sole basis for a diagnosis or treatment decision. Positive results do not rule out coninfection with other organisms. Nega tive results in the setting of a respiratory illness may be due to infection with pathogens that are not detected by this panel, or a lower respiratory tract infection that may not be detected by an PERFECT BINDER OPERATOR specimen. Internal controls are used to monitor al l stages of the test process and assess for possible amplification inhibitors. If inhibition is detected, testing is repeated and if inhibition is confirmed the s pecimen is resulted as "Invalid". When a n "Invalid" result occurs, it is recommended to wait 3 days before submitting a new specimen for testing if clinically indicated. This assay has been approved by the FDA for use in laboratories that have been CLIA-certified to perform moderate-complexity and high-complexity tests. The Microbiology Laboratory at [facility], CLIA Accreditation #[id number] and CAP Accreditation #[id number], verified the per formance characteristics of this assay. [facility] at [facility] performs the assay using the [employer] System. Performing Organization Address City/[facility] Phon e Number [facility] Unless otherwise noted, [address] all lab tests performed by: Division of Pathology and Laboratory Medicine [facility] ThreatMetrixd Clot Expiration Date (08/19/2021 10:35 PM CDT)Only the most recent of3 results within the time period is included. Pathologist Sig nature T & S Expiration 08/22/2021 [facility] Specimen Blood Performing Organization Address [facility] Phon e Number [facility] Unless otherwise noted, [address] all lab tests performed by: Division of Pathology and Laboratory Medicine [facility] [employer] TMP Interpretation Antibody Screen Negative (08/19/2021 10:35 PM CDT)Only the most recent of3 resultswithin the time period is included. TMP Auto Neg ABSC At the present time, patien t plasma shows no evidence of RBC alloantibodies. [facility] Interp Comment: [facility] TONI LAWRENCE, Dictated by: TONI LAWRENCE, Dictated Date/Time: 08.20.20 8:52 AM CDT Transcribed Date/Time: 08.20.2021 8:52 AM CDT Electronically Signed By: TONI LAWRENCE, on 1 8:52 AM C Specimen Blood Performing Organization Address [facility] Phon e Number [facility] Unless otherwise noted, [address] all lab tests performed by: Division of Pathology and Laboratory Medicine [address] aPTT (08/19/2021 10:35 PM CDT)Only the most recent of4 resultswithin the time period is included. Pathologist Sig nature aPTT 29.5 24.7 - 36.8 second(s) [facility] Specimen Blood Narrative [facility] - 1 11:22 PM CDT Early Sepsis Intervention Performing Organization Address City/[facility] Phon e Number [facility] CANCER Unless otherwise noted, [address] all lab tests performed by: Division of Pathology and Laboratory Medicine [address] [place] ABORh (08/19/2021 10:35 PM CDT)Only the most recent of3 resultswithin the time period is included. Pathologist Sig nature ABORh. B POS [facility] Specimen Blood Narrative [facility] - 1 12:27 AM CDT Early Sepsis Intervention Performing Organization Address [facility] Phon e Number [facility] CANCER Unless otherwise noted, [address] all lab tests performed by: Division of Pathology and Laboratory Medicine [address] (ABNORMAL) Prothrombin Time (08/19/2021 10:35 PM CDT)Only the most recent of5 resultswithin the time period is included. Pathologist Sig nature PT 13.5 11.5 - 13.9 [facility] second(s) CENTER INR 1.11 (H) 0.90 - 1.10 [facility] Specimen Blood Narrative [facility] - 1 11:22 PM CDT Early Sepsis Intervention Performing Organization Address City/[facility] Phon e Number [facility] Unless otherwise noted, [address] all lab tests performed by: Division of Pathology and Laboratory Medicine [address] [place] Antibody Screen (08/19/2021 10:35 PM CDT)Only the most recent of3 resultswithin the time period is included. Pathologist Sig nature ABSC. Negative ABSC [facility] R Specimen Blood Narrative [facility] - 12:27 AM CDT Early Sepsis Intervention Performing Organization Address City/State/ZIP Code Phon e Number [facility] CANCER Unless otherwise noted, [place] [address] CENTER all lab tests performed by: Division of Pathology and Laboratory Medicine [address] COVID-19 (SARS-CoV-2) PCR-Asymptomatic (08/16/2021 9:44 AM CDT) COVID19 (SARS Not Detected Not Detected [facility] CoV-2) Result Comment: [facility] This test is a qualitative r everse-transcriptase polymerase chain reaction (RT- PCR) developed for the [employer] system and intended for qualitative detection of SARS CoV-2 RNA in nasopharyngeal a nd oropharyngeal swab specimens collected from any individuals, including those suspected of COVID-19 by their healthcare provider, and those without symptoms or other reasons to suspect COVID-19. A fact sheet for patients provided by the supervisor product inspection ( [employer]) can be reviewed at: https://www.fda.gov/media/13 6005/download. A fact sheet for Health Care providers is provided by the supervisor product inspection ([employer]) and can be reviewed at: https://www.Stylesight.gov/media/639017/download Results must be interpreted within the context of all relevant clinical and laboratory findings and should not form the sole basis for a diagnosis or treatment decision. Positive results do not rule out bacterial infection or co- infection with other viruses. Negative results do not rule out SARS-CoV-2 and must be combined with clinical observations, patient history, and/or epidemiological information. "Presumptive Positive" resul ts are due to partial amplification of SARS-CoV-2 targets and indicates low amounts of virus present in the specimen at or near the limit of detection. Regardless, individuals with "Presumptive Positive" results should be managed per institutional gu idelines as individuals positive for SARS-CoV-2 virus, including use of appropriate infection control protocols. Internal controls are includ ed to assess for possible amplification inhibitors. If inhibition is detected, testing is repeated and if inhibition is confirmed the specimen is resulted as "Invalid". When an "Invalid" result occurs, it is recommended to wait 3 days before submittin g a new specimen for testing if clinically indicated. This assay has been approve d by the FDA for use only under Emergency Use Authorization (EUA) in laboratories that have been CLIA-certified to perform moderate-complexity and high-complexity tests. The performance characteristics of this assay were verified by the Microbiology Laboratory at [facility], CLIA Accreditation #: [id number] and CAP Accreditation #: [id number]. COVID19 SARS TRAIN CONTROL TECHNICIAN Swab [facility] Source [facility] COVID19 SARS Pre-Out of OR [facility] Indication Procedure [facility] Specimen Nasopharyngeal Swab Performing Organization Address City/State/ZIP Code Phon e Number [facility] Unless otherwise noted, [place], [place] [id number] [place] [address] all lab tests performed by: Division of Pathology and Laboratory Medicine [address] [place] [address] [place] Clostridium Difficile DNA Path Review (08/10/2021 9:30 AM CDT) C diff DNA MO Reviewed and Electronically signed by Pathologis t: [facility] Angeles Delgado MD, PhD #[id number] CANCER [facility] ER Comment: C. difficile Toxin DNA (Prim ester Method) is a nucleic acid amplification test (NAAT) intended for the qualitative detection of bacterial DNA from toxigenic strains of Clostridium difficile. Reference Range: DNA Negative Clostridium Difficile Toxin Assay (Reflex Method) performed by rapid immunoassay for the detection of Clostridium difficile toxins A and B in stool specimens. Reference Range: Negative When invalid results are obt ained by either the primary or reflex method, a new specimen should be collected for repeat testing. ANGELES DELGADO MD, PhD - [id number] Dictated by: ANGELES DELGADO MD, PhD - [id number] Dictated Date/Time: 08.11.20 15:24 PM CDT Transcribed Date/Time: 08.11.2021 15:24 PM CDT Electronically Signed By: JOÃO DELGADO MD, PhD - [id number] on 08.11.2021 15:24 PM Specimen Stool Performing Organization Address City/State/ZIP Code Phon e Number [facility] Unless otherwise noted, [address] all lab tests performed by: Division of Pathology and Laboratory Medicine [address] [facility] Stool Culture (08/10/2021 9:14 AM CDT) Pathologist [facility] Final Report No Salmonella or Shigella isolated. [facility] No Aeromonas/Plesiomonas/Edwardsiella isolated [facility] No Vibrio species isolated No Campylobacter isolated. No Yersinia enterocolitica isolated Path Review - The results have been review ed and electronically signed by Pathologist: [facility] Stool Angeles Delgado MD, PhD #[id number] [facility] ER Specimen Stool Performing Organization Address City/State/ZIP Code Phon e Number [facility] Unless otherwise noted, [address] all lab tests performed by: Division of Pathology and Laboratory Medicine [address] [facility] Influenza A/B + COVID-19 Asymptomatic- L (07/18/2021 10:34 PM CDT)Only the most recent of4 resultswithin the time period is included. Pathologist [facility] COVID19 Not Detected Not Detected [facility] (SARS-CoV-2) [facility] Influenza A Not Detected Not Detected [facility] Influenza B Not Detected Not Detected [facility] COVID19 SARS Inpatient Admission [facility] Indication [facility] Inf AB+Cov19 See Note [facility] Comment Comment: [facility] The marv SARS-CoV-2 & Influ zachary A/B nucleic acid test for use on the marv [employer] System is a multiplex real-time RT-PCR assay intended for the simultaneous, qualitative detection and differential of SARS-CoV-2 (COVID-19), influenza A, and influenza B viral RNA in nasopharyngeal swabs in transport media from patients suspected of having a respiratory infection with one of these viruses or possibly exposure to COVID-19 by a healthcare provider. Results must be interpreted within the context of all relevant clinical and labora tory findings and should not form the sole basis for a diagnosis or treatment decision. A fact sheet for patients provided by the supervisor product inspection ([employer]) can be reviewed at: https://www.fda.gov/media/990360/download A fact sheet for Health Care providers is provided by the supervisor product inspection ([employer]) and can be reviewed at: https://www.fda.gov/media/274215/download Influenza A and Influenza B negative results should be considered presumptive in samples that have a positive SARS-CoV-2 result. If co-infection with influenza A or influenza B virus is suspected in bienvenido ples with a positive SARS-CoV-2 results, the sample should be re-tested with another approved influenza te st. This assay has been authoriz ed by the FDA for use only under Emergency Use Authorization (EUA) in laboratories that have been CLIA-certified to perform moderate-complexity and high-complexity tests. The Microbiology Laboratory at [facility], CLIA Accreditation # [id number] and CAP Accreditation #[id number], verified the performance characteristics of this assay. Internal controls are used to monitor all stages of the test process. Specimen Nasopharyngeal Swab Performing Organization Address City/[facility] Phon e Number [facility] Unless otherwise noted, [address] all lab tests performed by: Division of Pathology and Laboratory Medicine [address] [place] [address] General Laboratory Add-On Test (07/04/2021 8:37 AM CDT)Only the most recent of8 resultswithin the time period is included. Pathologist Sig nature Ordered Test Added [facility] Test Needed CA19-9 [facility] Specimen Existing Performing Organization Address [facility] Phon e Number [facility] Unless otherwise noted, [address] all lab tests performed by: Division of Pathology and Laboratory Medicine [address] [place] [address] CT Abdomen with Contrast (07/01/2021 1:50 PM CDT) Specimen Impressions [id number] - 07/01/2021 3:20 PM CDT Interval placement of right internal/external biliary drain with decompression of the right intrahepatic bile ducts.There is some thickening of the intercostal muscles that were traversed by the drain, without evidence for fluid collection to suggest abscess. No evidence of bile leak along the drain. Left internal/external biliary drain rem ains in place with stable decompression of the left intrahepatic bile ducts. No significant interval change in the ap pearance of the primary cholangiocarcinoma. Narrative [id number] - 07/01/2021 3:20 PM CDT FULL RESULT: Examination: CT ABDOMEN W CONTRAST on 08/2021 1:50 PM. Clinical History: Cholangiocarcinoma. Indication: pain at right biliary drain site. Comparison: CT dated 06/22/2021. Technique: CT ABDOMEN W CONTRAST . Findings: Lower thorax: Bilateral breast prosthese s. Reticular opacities and mild groundglass in the lower lobes, similar to prior. Abdomen/pelvis: The patient has biopsy-proven cholangioc arcinoma of the common bile duct suboptimally evaluated due to the presence of stents but grossly similar wall prominence and enhancement compared to prior. There is a new right internal/external biliar y drain. There is soft tissue thickening of the 9th intercostal space where the drain traverses without a fluid collection to suggest abscess identified. Redemons trated is a left approach internal/exter nal biliary drain. Both biliary drains terminating in the transverse duodenum. Segmental areas of trace to mild intrahepatic biliary prominence, improved from venkat or study. Small cyst in the right hepati c lobe. No new liver lesion. No measurable perihepatic fluid. The gallbladder is present. Patent portal vein Stable prominent spleen. Stable couple p unctate splenic hypodensities, likely benign. The adrenal glands and pancreas appear u nremarkable. No hydronephrosis. Renal cysts are again seen. Stable subcentimeter retroperitoneal lym ph nodes. A cystic node on image 47 is minimally more prominent and can be followed. Degenerative changes are noted in the sp ine. Procedure Note Jsoé Antonio Fletcher MD - 07/01/2021 FULL RESULT: Examination: CT ABDOMEN W CONTRAST on 08/2021 1:50 PM. Clinical History: Cholangiocarcinoma. Indication: pain at right biliary drain site. Comparison: CT dated 06/22/2021. Technique: CT ABDOMEN W CONTRAST . Findings: Lower thorax: Bilateral breast prosthese s. Reticular opacities and mild groundglass in the lower lobes, similar to prior. Abdomen/pelvis: The patient has biopsy-proven cholangioc arcinoma of the common bile duct suboptimally evaluated due to the presence of stents but grossly similar wall prominence and enhancement compared to prior. There is a new right internal/external biliary drain. There i s soft tissue thickening of the 9th intercostal space where the drain traverses without a fluid collection to suggest abscess identified. Redemonstrated is a left approach internal/external biliary drain. Both bi liary drains terminating in the transverse duodenum. Segmental areas of trace to mild intrahepatic biliary prominence, improved from prior study. Small cyst in the right hepatic lobe. No new liver lesion. No measurable perihepatic fluid. The gallbladder is present. Patent portal vein Stable prominent spleen. Stable couple p unctate splenic hypodensities, likely benign. The adrenal glands and pancreas appear u nremarkable. No hydronephrosis. Renal cysts are again seen. Stable subcentimeter retroperitoneal lym ph nodes. A cystic node on image 47 is minimally more prominent and can be followed. Degenerative changes are noted in the sp ine. IMPRESSION: Interval placement of right internal/ext ernal biliary drain with decompression of the right intrahepatic bile ducts.There is some thickening of the intercostal muscles that were traversed by the drain, without evidence for fluid collection to suggest abscess. No evidence of bile leak along the drain. Left internal/external biliary drain rem ains in place with stable decompression of the left intrahepatic bile ducts. No significant interval change in the ap pearance of the primary cholangiocarcinoma. Performing Organization Address City/State/ZIP Code Phon e Number [id number] IR PLACEMENT BILIARY DRAINAGE CATHETER (INTERNAL-EXTERNAL) (06/27/2021 7:25 PM CDT) Specimen Narrative Matt Samuel MD - 06/30/2021 1:25 PM CDT Date of Procedure: 06/27/21 Attending Physician: Matt Samuel MD Dog Hair Clipper: Marcelo Weems MD Pre Procedure Diagnosis: Cholangiocarc inoma [[id number]] Post Procedure Diagnosis: Unchanged Indication: Biliary obstruction from t umor Title of Procedure: Percutaneous Image-Guided Placement of B iliary Drainage Catheter(s). Operative Findings: Percutaneous image-guided placement of r ight internal / external biliary drainage catheter(s). Consent: The procedure, risks, indicat ions and alternatives were explained. All questions were answered a nd informed consent was obtained. I have reviewed the history and physical dictated by the mid-level practitioner / fellow. Sedation/Anesthesia: Anesthesia provid ed by Anesthesia Department. Procedure in Detail: A time out was performed prior to the st art of the procedure and the correct patient, procedure, presence of consent, site, and side were confirmed with all members of the team. The patient was placed in a supine posit ion on the fluoroscopy table and the upper abdomen and right flank were p repped and draped in the usual sterile fashion. Lidocaine 1% was used f or local anesthesia. Under real time ultrasound guidance, a 2 2 gauge needle was advanced into an appropriate peripheral biliary radica l, confirmed by contrast administration. An image was obtained an d placed into the patient's image file. A cholangiogram was performed and an 0.018 inch wire was advanced into the biliary system. A Sienna set was used to scale up the acce ss and a 0.035 inch wire was negotiated into the right biliary system and the biliary obstruction was successfully crossed using a 4 Serbian gl nuzhat catheter and 0.035 Glidewire system, which was advanced through the A ccuStick sheath and into the duodenum under fluoroscopic guidance. The Glidewire was exchanged for a 0.035 stiff Amplatz wire and the glide c atheter and AccuStick sheath were removed over the wire. The tract was d ilated to accept a 10 Serbian extended side-hole biliary catheter whic h was formed in the duodenum. The catheter was secured to the skin with vazquez ture. Following placement of the drain, the bi liary stent was removed endoscopically by the toys inspector and monitored under fluoroscopic guidance. Additional Comments: None Estimated Blood Loss: Minimal Specimens Removed: No Immediate Complications: None Disposition: PACU Plan: Catheter to gravity drainage until bi lirubin levels normalize or trend down adequately. Then cap for internal d rainage. Return for routine exchange in 3 lea hs. Considering the patients comorbiditie s, the risk of sepsis, potential need for aggressive pain control using a LEASES AND LAND SUPERVISOR, the risk of hemorrhage, and uncertainty about when the patient will meet discharge criteria, the patient will be admitted to the hospital . I certify my physical presence at the [facility] of the procedure. I personally reviewed the image(s) and the resident's / fellow's interpretation and agree with the written report. Transfuse RBC: (06/27/2021 6:30 PM CDT)Prepare RBC: (06/27/2021 6:23 PM CDT) Only the most recent of2 resultswithin the time period is included. Unit Number [id number] [facility] Product Code [id number] [facility] Unit Expiration [id number] [facility] Unit Blood Type 7300 [facility] Product Code Text RBCIRLR CPD AS1 [facility] 500mL [facility] Crossmatch [id number] [facility] Expiration Date [facility] Unit Irradiated IRRADIATED [facility] Dispense Status ISSUED [facility] Unit Blood Type B Positive [facility] Product Pack Mule Worker .BPAMComment: [facility] Location [facility]ER [facility]ENTER Specimen Performing Organization Address City/[facility] Phon e Number [facility] Unless otherwise noted, [address] all lab tests performed by: Division of Pathology and Laboratory Medicine [address] [place] [address] TMP Interpretation Crossmatch (06/27/2021 4:41 PM CDT) TMP XM Interp RBC units crossmatched for transfusion appear ac ceptable. [facility] Comment: CANCER LOVING NIRAV CLIFFORD, Dictated by: NIRAV CLIFFORD, Dictated Date/Time: 06.28.20 14:06 PM CDT Transcribed Date/Time: 06.28.2021 14:06 PM CDT Electronically Signed By: liset ORNELAS 14:06 PM Specimen Blood Performing Organization Address [facility] Phon e Number [facility] Unless otherwise noted, [address] all lab tests performed by: Division of Pathology and Laboratory Medicine [address] [place] [address] ENDOSCOPY NOTE RESULTS (06/27/2021 3:46 PM CDT) Procedure Note Tony Quiñonez MD - 06/27/2021 3:46 PM CDT Patient Name: Tunde Ochoa Gender: Female Age: 71 Procedure Date No Time: 06/27/2021 Instrument Name: [id number] Proceduralist(s): TONY Santos MD Procedure Name: Upper GI endos copy Scope In: 7:02:05 PM Scope Out: 7:11:01 PM Total Procedure Duration Time 0 hours 8 minutes 56 seconds Indications: Foreign body i n the small bowel (endobiliary stent) after placemen t of right sided percutaneous drain. Procedure done in IR site immediately after placement of R internal external drain by Dr Samuel of IR. Medications: General Anesth esia Procedure Description: Pre-Anesthesia Assessment: - Prior to the procedure, a History and Physical was performed, and patient medications and allergies were reviewed. The patient's tolerance of previous anest hesia was also reviewed. The risks and benefits o f the procedure and the sedation options and ri sks were discussed with the patient. All questions were answered, and informed consent was obtained. Prior Anticoagulants: The patient has taken no antic oagulant or antiplatelet agents. ASA Grade Assessme nt: III - A patient with severe systemic disea se. After reviewing the risks and benefits, the patient was deemed in satisfactory condition to u ndergo the procedure. Informed conse nt was obtained. Throughout the procedure, the patient's blood pressure, pulse, and oxygen saturat ions were monitored continuously. The Olympus GIF-HQ 190 ([id number]) upper endoscope - (9.9 mm dm) was int roduced through the mouth, and advanced to th e duodenum second part of duodenum. Informed conse nt was obtained. Throughout the procedure, the patient's blood pressure, pulse, and oxygen saturat ions were monitored continuously.The upper GI endos copy was accomplished without difficulty. Th e patient tolerated the procedure well. Findings: The esophagus was normal although exam was incomplete dur ing transit to duodenum The stomach wa s normal althoug exam was incomplete during transit to duodenum. A foreign body was found at the major papilla. Three biliary stents were seen in the 2nd portion. Two white simons shepatic stents (bilateral) including the just place d R hepatic stent. Removal of the blue endobilia ry stent was accomplished with a rat-toothed fo rceps without difficulty. Complications: No immediate c omplications. Estimated Blood Loss: Estimated bloo d loss: none. Post Procedure Diagnosis: - Normal esoph avinash. - Normal stoma ch. - Duodenal for eign body. Removal was successful. Recommendation: - [facility] - Resume previ ous diet. Attending Participation: I personally p erformed the entire procedure. TONY QUIÑONEZ MD 06/28/2021 11:47:54 AM This report has been signed electronical ly. Number of Addenda: 0 CT Head without Contrast (06/25/2021 11:15 AM CDT)Only the most recent of3 resultswithin the time period is included. Specimen Impressions [id number] - 06/25/2021 1:28 PM CDT 1. No acute intracranial abnormality. 2. Chronic microvascular ischemic sauceda ges. ATTENDING' S MINOR CHANGE: Chronic sphen oid sinusitis with sclerotic thick sinus wall, mucosal thickening and frothy secretion is without new concerning findings. I personally reviewed these image(s) sue ng with the resident's/fellow's interpretations, certify that if a procedure was performed I was physically present, and agree with the final report. Narrative [id number] - 06/25/2021 1:28 PM CDT FULL RESULT: EXAMINATION: CT HEAD WO CONTRAST on 2020 11:15 AM COMPARISON: CT head without contrast migel ed 06/07/2021 HISTORY: 71-year-old female with cholang iocarcinoma. INDICATION: Headache, No MR contraindica tion, No gadolinium contraindication, No iodinated contrast contraindication, Headache, thunderclap TECHNIQUE: CT scan of the brain was perf ormed without intravenous contrast as per departmental protocol. FINDINGS: INTRACRANIAL: The pearson-white matter differentiation is maintained. Confluent periventricular and subcortical white matter hypodensities are nonspecific most likely related to chronic microvessel ischemic changes. Rig ht greater than left basal ganglia final cigar and box examiner alization. There is no evidence for intra-axial or extra-axial hemorrhage. No midline shift or mass effect seen. There is no evidence for hydrocephalus. Incidental cavum septum pellucidum vergae. There is no large acute territorial infa rction. CALVARIA: The calvaria are unremarkable. ORBITS: The orbital structures are unrem arkable. SINUSES: The paranasal sinuses and masto id air cells are clear. Procedure Note Kathy, MD Gabriella - 06/25/2021 FULL RESULT: EXAMINATION: CT HEAD WO CONTRAST on 2020 11:15 AM COMPARISON: CT head without contrast migel ed 06/07/2021 HISTORY: 71-year-old female with cholang iocarcinoma. INDICATION: Headache, No MR contraindica tion, No gadolinium contraindication, No iodinated contrast contraindication, Headache, thunderclap TECHNIQUE: CT scan of the brain was perf ormed without intravenous contrast as per departmental protocol. FINDINGS: INTRACRANIAL: The pearson-white matter differentiation is maintained. Confluent periventricular and subcortical white matter hypodensities are nonspecific most likely related to chronic microvessel ischemic changes. Right greater than left basal ganglia mineralization. There is no evidence for intra-axial or extra-axial hemorrhage. No midline shift or mass effect seen. There is no evidence for hydrocephalus. Incidental cavum septum pellucidum vergae. There is no large acute territorial infa rction. CALVARIA: The calvaria are unremarkable. ORBITS: The orbital structures are unrem arkable. SINUSES: The paranasal sinuses and masto id air cells are clear. IMPRESSION: 1. No acute intracranial abnormality. 2. Chronic microvascular ischemic anderson es. ATTENDING' S MINOR CHANGE: Chronic sphen oid sinusitis with sclerotic thick sinus wall, mucosal thickening and frothy secretion is without new concerning findings. I personally reviewed these image(s) sue pugh with the resident's/fellow's interpretations, certify that if a procedure was performed I was physically present, and agree with the final report. Performing Organization Address City/State/ZIP Code Phon e Number [id number] (ABNORMAL) Sed Rate (06/22/2021 2:40 PM CDT) Pathologist Sig nature Sed Rate 67 (H) 0 - 20 mm/hr [facility] Specimen Blood Narrative [facility] - 1 3:48 PM CDT Next lab draw Performing Organization Address City/State/ZIP Code Phon e Number [facility] CANCER Unless otherwise noted, [place] [address] CENTER all lab tests performed by: Division of Pathology and Laboratory Medicine [facility] (ABNORMAL) Procalcitonin (06/22/2021 6:18 AM CDT)Only the most recent of4 resultswithin the time period is included. Procalcitonin 0.20 (H) <=0.08 ng/mL [facility] Comment: [facility] Procalcitonin > 2.00 ng/mL: Procalcitonin levels above 2.00 ng/mL are highly suggestive of a high risk for systematic bacterial infection/ severe sepsis and/or septic shock. Procalcitonin < 0.50 ng/mL: Procalcitonin levels below 0.50 ng/mL are at low risk for progression to severe sepsis and/ or septic shock. Procalcitonin (ProCT) betwee n 0.15 and 2.0 ng/mL do not exclude infection, because localized infections (without systemic signs) may be associated with such low levels. Results greater than 400 ng/ mL may not be reliable due to the matrix effect with extended dilution as it exceeds the supervisor product inspection's recommended limit. Caution should be exercised when interpreting such values and done in conjunction with clinical context. Specimen Blood Performing Organization Address [facility] Phon e Number [facility] CANCER Unless otherwise noted, [address] all lab tests performed by: Division of Pathology and Laboratory Medicine [address] [place] CRP (06/22/2021 6:18 AM CDT)Only the most recent of2 resultswithin the time period is included. Pathologist Sig nature CRP 12.18 mg/L [facility] Comment: [facility] CENTER Reference ranges for HS CRP assay are as follows: Reference ranges when used to assess cardiac risk: <1.00 mg/L Low cardiovascular risk 1.00-3.00 mg/L Average cardiovascular risk >3.00 mg/L High cardiovascular risk. Reference ranges when used to assess inflammatory resp onses: Less than or equal to 10.00 mg/L. Specimen Blood Performing Organization Address [facility] Phon e Number [facility] CANCER Unless otherwise noted, [address] all lab tests performed by: Division of Pathology and Laboratory Medicine [address] [place] LDH (06/22/2021 6:18 AM CDT)Only the most recent of10 resultswithin the time period is included. LDH 200Comment: Results 135 - 214 U/L [facility] greater than 1651 U/L [facility] may not be reliable due to matrix effect with extended dilution as it exceeds the supervisor product inspection s recommended limit. Caution should be exercised when interpreting such values and done in conjunction with clinical context. Specimen Blood Performing Organization Address [facility]/ZIP Code Phon e Number [facility] CANCER Unless otherwise noted, [address] all lab tests performed by: Division of Pathology and Laboratory Medicine [address] [place] MRSA Screening Culture (06/17/2021 12:55 PM CDT) Final Report No Methicillin resistant [facility] Staphylococcus aureus [facility] isolated. Path Review The results have been review ed and electronically signed by Pathologist: [facility] ROYCE ALY MD #[id number] [facility] R Specimen Nasal Performing Organization Address [facility] Phon e Number [facility] CANCER Unless otherwise noted, [address] all lab tests performed by: Division of Pathology and Laboratory Medicine [address] [place] Sodium Urine (06/17/2021 12:56 AM CDT)Only the most recent of2 resultswithin the time period is included. Pathologist Sig nature U Sodium 67Comment: Normal range mEq/L [facility] not available for [facility]ER CENTER collections less than 24 hours in duration. Specimen Urine Performing Organization Address [facility] Phon e Number [facility] CANCER Unless otherwise noted, [address] all lab tests performed by: Division of Pathology and Laboratory Medicine [address] [place] Osmolality Urine (06/17/2021 12:56 AM CDT) U Osmolality 299 50 - 1,400 [facility] Comment: mOsm/kg H2O [facility] Urinary osmolality may vary widely, depending on the state of hydration. Random urine osmolality can range from 50 to 1400 mOsm/kg H2O depending on fluid intake. In individuals on average fluid intake, urine osmolality is typically 300-900 mOsm/kg H2O. Units of measure: mOsm per Kg of water. Specimen Urine Performing Organization Address [facility] Phon e Number [facility] CANCER Unless otherwise noted, [address] all lab tests performed by: Division of Pathology and Laboratory Medicine [address] [place] (ABNORMAL) TSH (06/17/2021 12:10 AM CDT)Only the most recent of3 resultswithin the time period is included. Pathologist Sig nature TSH <0.01 (L) 0.27 - 4.20 [facility] CANCER mcunit/mL CENTER Specimen Blood Performing Organization Address [facility]/ZIP Code Phon e Number [facility] CANCER Unless otherwise noted, [address] all lab tests performed by: Division of Pathology and Laboratory Medicine [address] [place] (ABNORMAL) Free T4 (06/17/2021 12:10 AM CDT)Only the most recent of2 results within the time period is included. Pathologist Sig nature T4 Free 2.33 (H) 0.93 - 1.70 ng/dL [facility] Specimen Blood Performing Organization Address City/[facility] Phon e Number [facility] CANCER Unless otherwise noted, [address] all lab tests performed by: Division of Pathology and Laboratory Medicine [address] [place] (ABNORMAL) Osmolality (06/17/2021 12:10 AM CDT) Pathologist Sig nature Osmolality 272 (L)Comment: 275 - 300 [facility] Units in mOsm mOsm/kg H2O [facility] per kg of water. Specimen Blood Performing Organization Address [facility] Phon e Number [facility] CANCER Unless otherwise noted, [address] all lab tests performed by: Division of Pathology and Laboratory Medicine [address] [place] X-ray Chest 1 View (06/16/2021 8:10 PM CDT)Only the most recent of3 results within the time period is included. Specimen Impressions [id number] - 06/16/2021 8:48 PM CDT No acute thoracic findings, particularly without evidence of parenchymal consolidation Narrative [id number] - 06/16/2021 8:48 PM CDT FULL RESULT: Examination: XR CHEST 1 VW, 06/16/2021 8: 10 PM Clinical History: A 71-year-old female p atient with cholangiocarcinoma Indication: Fever Comparison: X-ray 05/18/[address] 05/21 Technique: Anteroposterior radiograph of the chest. Findings: No parenchymal consolidation is redemons trated.. There is no pleural effusion or pneumothorax. There is no mediastinal or hilar adenopathy. Cardiac silhouette is normal. A right-sided central line is seen with its distal tip overlaying the mid SVC Procedure Note Emanuel Pisano MD - 06/16/2021 FULL RESULT: Examination: XR CHEST 1 VW, 06/16/2021 8: 10 PM Clinical History: A 71-year-old female p atient with cholangiocarcinoma Indication: Fever Comparison: X-ray 05/18/[address] 05/21 Technique: Anteroposterior radiograph of the chest. Findings: No parenchymal consolidation is redemons trated.. There is no pleural effusion or pneumothorax. There is no mediastinal or hilar adenopathy. Cardiac silhouette is normal. A right-sided central line is seen with its distal tip overlaying the mid SVC IMPRESSION: No acute thoracic findings, particularly without evidence of parenchymal consolidation Performing Organization Address City/State/ZIP Code Phon e Number [id number] (ABNORMAL) POC Chem 8 (06/16/2021 9:26 AM CDT)Only the most recent of3 results within the time period is included. POC NA 133 (L) 138 - 146 [facility] mEq/L POC K 4.0 3.5 - 4.9 [facility] Comment: mEq/L Method description: The i-ST AT is an analyzer used for in vitro quantification of various analytes in whole blood. The device uses a single disposable cartridge which contains microfabricated sensors, a calibration solution, fluidics system, and a waste chamber. Each test cartridge contains chemically sensitive biosensors on a silicon chip that are configured to perform specific tests. The microfabricated sensors measure analyte concentration by an electrochemical assay. POC CL 99 98 - 109 [facility] mEq/L POC VTCO2 23 (L) 24 - 29 mEq/L [facility] POC Anion Gap 15 10 - 20 [facility] mmol/L POC BUN 16 8 - 26 mg/dL [facility] POC Crea 0.6 0.6 - 1.3 [facility]OC [facility] Comment: mg/dL Medications, especially hydr oxyurea or supplements, such as ascorbate, can interfere with test results causing a falsely and significantly higher result than expected. If a problem is suspected with a patient's result, a sample should be sent to the laboratory for confirmatory testing. Method description: The i-ST AT is an analyzer used for in vitro quantification of various analytes in whole blood. The device uses a single disposable cartridge which contains microfabricated sensors, a calibration solution, fluidics system, and a waste chamber. Each test cartridge contains chemically sensitive biosensors on a silicon chip that are configured to perform specific tests. The microfabricated sensors measure analyte concentration by an electrochemical assay. POC eGFR-AA 106 >=60 [facility] Comment: mL/min/1.73 Normal eGFR >= 60 mL/min/1.73 m2 m2 The eGFR is calculated using the CKD-EPI equation. The eGFR declines with age. eGFR <60 mL/min/1.73 m2 is considered as "decreased" This equation should only be used for patients 18 and older. According to the National [facility]'s Kidney Disease Outcome Quality Initiative (KDOQI) classification and 2012 Kidney Disease Improving Global Outcomes (KDIGO) Clinical Practice Guideline, the stage of CKD should be categorized based on estimated GFR. Stage Description GFR mL/min/1.73 m2 1 Kidney damage with normal or high GFR >=90 2 Kidney damage with mild decrease in GFR 60-89 3a Mild to moderate decrease in GFR 45-59 3b Moderate to severe decrease in GFR 30-44 4 Severe decrease in GFR 15-29 5 Kidney failure <15 (or dialysis) POC eGFR-LETICIA 92 >=60 [facility]OC [facility] Comment: mL/min/1.73 Normal eGFR >= 60 mL/min/1.73 m2 m2 The eGFR is calculated using the CKD-EPI equation. The eGFR declines with age. eGFR <60 mL/min/1.73 m2 is considered as "decreased" This equation should only be used for patients 18 and older. According to the [facility]'s Kidney Disease Outcome Quality Initiative (KDOQI) classification and 2012 Kidney Disease Improving Global Outcomes (KDIGO) Clinical Practice Guideline, the stage of CKD should be categorized based on estimated GFR. Stage Description GFR mL/min/1.73 m2 1 Kidney damage with normal or high GFR >=90 2 Kidney damage with mild decrease in GFR 60-89 3a Mild to moderate decrease in GFR 45-59 3b Moderate to severe decrease in GFR 30-44 4 Severe decrease in GFR 15-29 5 Kidney failure <15 (or dialysis) POC Glucose 117 (H) 70 - 99 mg/dL [facility] POC Ion Ca 1.25 1.12 - 1.32 [facility]OC [facility] mmol/L POC Hct 30.0 (L) 38.0 - 51.0 % [facility]OC [facility] POC Hgb 10.2 (L) 12.0 - 17.0 [facility]OC [facility] Comment: gm/dL Hematocrit values from the i STAT are determined conductometrically, which may be affected by WBC count, levels of total protein, lipids, or sodium. The hemoglobin result is calculated based on the corre sponding measured hematocrit and assumes a normal MCHC. If there is a discrepa ncy between the results from iSTAT and conventional laboratory method, the result from conventional method should be considered the accurate standard. POC Sample Type Venous [facility]OC [facility] POC Clean Dev Yes POC [facility] POC [facility], [facility] [place] [address]; Auto Polisher: Pratibha Amato MD Specimen Blood Performing Organization Address City/State/ZIP Code Phon e Number POC [facility] ENDOSCOPY NOTE RESULTS (06/08/2021 5:27 PM CDT) Narrative This result has an attachment that is no t available. Procedure Note Royce Moncada MD - 06/08/2021 5:27 PM CDT Patient Name: Tunde Ochoa Gender: Female Age: 71 Procedure Date No Time: 06/08/2021 Instrument Name: [id number] Proceduralist(s): ROYCE MONCADA MD, ANDREW GUAMAN MD (Fellow) Procedure Name: ERCP Scope In: 5:33:54 PM Scope Out: 5:49:06 PM Total Procedure Duration Time 0 hours 15 minutes 12 seconds Patient Profile: This is a 71 y ear old female with a personal history of cho langiocarcinoma. S/p ERCP with RHD stent and LHD PTC. Here today for ERCP and RHD stent exchange . Indications: Stent change, Bile Duct Obstruction Medications: General Anesth esia, CO2, Levaquin 500 mg IV Procedure Description: Pre-Anesthesia Assessment: - Prior to the procedure, a History and Physical was performed, and patient medications and allergies were reviewed. The patient's tolerance of previous anest hesia was also reviewed. The risks and benefits o f the procedure and the sedation options and ri sks were discussed with the patient. All questions were answered, and informed consent was obtained. Prior Anticoagulants: The patient has taken no antic oagulant or antiplatelet agents. ASA Grade Assessme nt: III - A patient with severe systemic disea se. After reviewing the risks and benefits, the patient was deemed in satisfactory condition to u ndergo the procedure. - The patient was placed in the prone position on the fluoroscop y table. Informed conse nt was obtained. Throughout the procedure, the patient's blood pressure, pulse, and oxygen saturat ions were monitored continuously. The Olympus [id number] 90V ([id number]) sideviewing duodenoscope w as introduced through the mouth, and advanced to th e duodenum and used to inject contrast into the bile duct. The ERCP was accomplished w ithout difficulty. The patient tolerated the procedure well. Findings: A straight int ernal and PTC external - internal biliary stents were visible on the director integrated film. One stent and one PTBD originating in the biliary tree were emerging from the major papilla. . A biliary sphincterotomy had been performed. The sphincterotomy appeared open. One RHD internal stent was darnell patel from the biliary tree using a snare. A 0.035 inch angled Glidewire was passed into the bilia ry tree. The 8.5 mm balloon was passed over th e guidewire and the bile duct was then deeply ca nnulated. Contrast was injected after aspiration of old bile. I personally interpreted the bile duct images. Ductal flow of contrast was adequate. Imag e quality was adequate. The common hepatic duct a nd hepatic duct bifurcation contained segmental sten oses. One straight Cook 10 Fr by 13 cm plastic sarah nt with a single external flap and a single interna l flap was placed into the right hepatic duct. Bile flowed through the stent. The stent was in g ood position. Complications: No immediate c omplications. Estimated Blood Loss: Estimated bloo d loss was minimal. Post Procedure Diagnosis: - One stent an d one PTBD were seen in the major papilla. RHD i nternal stent removed. PD stent was not seen. - Prior biliar y sphincterotomy appeared open. 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 Recommendation: - The patient will be observed post-procedure, until all disc harge criteria are met. - [facility]. - Clear liquid diet today. - Continue pre sent medications including antibx. - Repeat ERCP in 3 months to exchange stent. - Return to re [facility] physician as previously scheduled. Attending Participation: I was present and participated during the entire procedure, inc luding non-hallman portions. ROYCE MONCADA MD 06/08/2021 6:18:02 PM This report has been signed electronical ly. Number of Addenda: 0 Endoscopy Fluoroscopy (06/08/2021 4:46 PM CDT) Specimen Narrative Systemgenerated, Documentation - 021 4:46 PM CDT This procedure requires no interpretatio n from the radiologist. Vancomycin Trough Vancomycin trough on 06/08/21@08:00AM. Nurse please coordinate with lab to draw trough approximately 11 - 11.5hours after 06/07/21 evening vanco dose. Hold vancomycin doses if trough isgreater than 20 and notify MD. Thanks! (06/08/2021 8:07 AM CDT) Vanco Trough 10.8Comment: Toxic 5.0 - 20.0 [facility] Trough Level: >20 mcg/mL [facility] CENTER mcg/mL Vanco Tr Dose Time SEE NOTE [facility] Comment: CANCER CENTER Level, date, and time of previous dose is not availabl e for this sample. The date reported is the sample collection date. Vanco Tr Dose Date 06/08/2021 [facility] Comment: CANCER CENTER Level, date, and time of previous dose is not availabl e for this sample. The date reported is the sample collection date. Specimen Blood Narrative [facility] - 1 9:30 AM CDT Vancomycin trough on 06/08/21@08:00AM. Nu rse please coordinate with lab to draw trough approximately 11 - 11.5hours after evening vanco dose. Hold vancomycin doses if trough is greater than 20 and notify MD. Thanks! Performing Organization Address City/State/ZIP Code Phon e Number [facility] CANCER Unless otherwise noted, [place] [address] CENTER all lab tests performed by: Division of Pathology and Laboratory Medicine [address] (ABNORMAL) Wound Culture w/Gram Stain (06/07/2021 5:23 PM CDT) Final Report Many Presumptive Pseudomonas aeruginosa U T [facility] Many Enterococcus faecalis CANCER CENTER ... Moderate Yeast isolated (A) Path Review The results have been review ed and electronically signed by Pathologist: MD MD PARAS Mcneill MD, PhD #[id number] CANCER CENTE R (A) Gram Stain Report No WBC's seen. MD PARAS Moderate Gram Negative Rods [facility] Few Gram Positive Cocci (A) Organism Pseudomonas aeruginosa MD [employer] (A) CANCER CENTER Organism Enterococcus faecalis [facility] (A) [facility] Specimen Drainage Organism Antibiotic Method Susceptibility Pseudomonas *UMER expressed in MINIMUM INHIBITORY UMER: MINT aeruginosa mcg/mL CONCENTRATION Pseudomonas Piperacillin/Tazobacta MINIMUM INHIBITORY 8: Stella ceptible aeruginosa m CONCENTRATION Pseudomonas Ceftazidime MINIMUM INHIBITORY 4: Susceptibl e aeruginosa CONCENTRATION Pseudomonas Cefepime MINIMUM INHIBITORY 2: Susceptibl e aeruginosa CONCENTRATION Pseudomonas Imipenem MINIMUM INHIBITORY 1: Susceptibl e aeruginosa CONCENTRATION Pseudomonas Meropenem MINIMUM INHIBITORY <=0.25: Susce ptible aeruginosa CONCENTRATION Pseudomonas Amikacin MINIMUM INHIBITORY <=2: Suscepti ble aeruginosa CONCENTRATION Pseudomonas Tobramycin MINIMUM INHIBITORY <=1: Suscepti ble aeruginosa CONCENTRATION Pseudomonas Ciprofloxacin MINIMUM INHIBITORY <=0.25: Susce ptible aeruginosa CONCENTRATION Pseudomonas Levofloxacin MINIMUM INHIBITORY 1: Susceptibl e aeruginosa CONCENTRATION Enterococcus faecalis *UMER expressed in MINIMUM INHIBITORY UMER: MINT mcg/mL CONCENTRATION Enterococcus faecalis Ampicillin MINIMUM INHIBITORY <=2: Vazquez sceptible CONCENTRATION Enterococcus faecalis Vancomycin MINIMUM INHIBITORY 2: Susc eptible CONCENTRATION Performing Organization Address City/[facility] Phon e Number [facility] CANCER Unless otherwise noted, [address] all lab tests performed by: Division of Pathology and Laboratory Medicine [facility]andes Hemoglobin A1c (06/07/2021 12:12 AM CDT)Only the most recent of2 resultswithin the time period is included. Pathologist Sig nature A1C 5.2 4.3 - 5.6 % [facility] Comment: CANCER CENTER HbA1c values >=6.5% are diagnostic of diabetes mellitu s. Diagnosis should be confirmed by repeat testing. Therapeutic Action suggested: >8.0% HbA1c; Goal of therapy: <7.0% HbA1c Specimen Blood Performing Organization Address City/[facility] Phon e Number [facility] CANCER Unless otherwise noted, [address] all lab tests performed by: Division of Pathology and Laboratory Medicine Mercy Hernandes MD COVID-19 (WINSOME-CoV-2) PCR Asymptomatic (06/05/2021 1:29 PM CDT)Only the most recent of2 resultswithin the time period is included. COVID19 SARS Pre-OR Procedure [facility] COVID19 SARS Result Not Detected Not Detected [facility] COVID19 SARS SARS-CoV-2 NOT Detected. [facility] Reference Range: Not Detected Methodology: The Huff Real Time SARS-CoV-2 assay is a qualitative real-time reverse hand drawer in helper polymerase chain reaction (maintenance representative-PCR) test to detect RNA from SARS-CoV-2 in nasal, nasopharyngeal and oropharyngeal swabs from patients with signs and symptoms of infection who ar e suspected of COVID-19 by their health care provider. The Huff RealTime SARS-CoV-2 performed on the Agenus000 System is a dual target assay with primers and probes for the RdRp and N genes. Results must be interpreted within the context of all relevant clinical and laboratory findings, and epidemiological risk factors. Positive results are indicative of the presence of SARS-CoV-2 RNA; clinical correlation with patient history and other diagnostic information is ne cessary to determine patient infection status. Positive results do not rule out bacterial infection or co-infection with other viruses. Negative results do not preclude SARS- CoV-2 infection and should not be used as the sole basis for patient management decisions. The Social Reality RealTime SARS-CoV -2 assay is for in vitro diagnostic use under FDA Emergency Use Authorization only. Testing is limited to laboratories certified under the Clinical Laboratory Improvement Stephany ndments of 1988 (CLIA), 42U.S.C. 263a, to perform high complexity tests. The T est was performed by the CLIA-certified, high- complexity Molecular Diagnostics Laboratory (MDL) at [facility] under the Food and Drug Administration (FDA) s Emergency Use Authorization. Factsheet for patients: https://www.[facility].org/Abb ottFactSheetPatients Factsheet for healthcare pro viders: https://www.[facility].org/AbbottFactSheetHCP Test performed by: [facility] [place] [address] [place] [address] Specimen Nasopharyngeal Swab Performing Organization Address City/State/ZIP Code Phon e Number [facility] CANCER Unless otherwise noted, [place] [address] [place] all lab tests performed by: Division of Pathology and Laboratory Medicine [address] [facility] PORT PLACEMENT (05/31/2021 9:26 AM CDT) Specimen Narrative Otilio Badillo MD - 05/31/2021 11:20 AM CDT Date of Procedure: 05/31/21 Attending Physician: Otilio Badillo MD Dog Hair Clipper: Sander Robles 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 Port: Bard PowerPort Clearvue SLIM Implantable Port Catheter size: 6F Operative Findings: Successful percutaneous image-guided pow er-injectable chest port placement in the right internal jugular vein. Consent: The procedure, risks, indicatio ns and alternatives were explained. All questions were answered and informed consent was obtained. I have reviewed the history and physical dictated by the mid-level practitioner / fellow. Sedation/Anesthesia: Anesthesia provided by Anesthesia Department. Insertion site prepped with: Chlorhexadi ne gluconate Procedure in Detail: A time out was performed prior to the st art of the procedure and the correct patient, procedure, presence of consent, site, and side were confirmed with all members of the team. Insertion site was prepped and cleaned with aseptic technique. Sterile devices and equipment were used. Doors were closed and traffic kept to a minimum during the procedure. Skin prep agent was allowed to dry prior to p rocedure. Maximum sterile barriers were used including sterile gloves, gown , cap, mask and head to toe sterile cover. Hand hygiene was performe d prior to insertion by all persons performing/assisting with proced ure. Ultrasound evaluation of the access site demonstrated a patent and compressible vein. Lidocaine 1% was us ed for local anesthesia. Under ultrasound imaging guidance, a 21 gauge needle was advanced into the right internal jugular vein and the access sit e was scaled up to accept a micropuncture transitional dilator. An image was obtained and placed into the medical record. A wire was advanced into the inferior ve na cava under fluoroscopic guidance to secure access. An appropri ate site within the upper chest was determined and an incision was created. A subcutaneous pocket below the incision site was created. The subcuta neous tunnel was then created in the upper chest and the port catheter wa s advanced through the tunnel. The venous access site was scaled up to accept a peel-away sheath. The catheter was then advanced through the s guy, with the tip of the catheter in a satisfactory position at t he SVC/atrial junction on fluoroscopy. The catheter was connected to the hub of the chest port. The chest port hub was placed within the sub cutaneous pocket. Venous access incision closed with Dermabond. The port pocket incision was closed as below. Port pocket closure: The incision was approximated with multi ple subdermal sutures. Dermabond was applied to the incision sites. Additional Comments: None Estimated Blood Loss: Minimal Specimens Removed: No Disposition: PACU Plan: Port Catheter positioning was confirm ed with a fluoroscopic image at the conclusion of the procedure. Tip of th e catheter lies at the SVC/RA junction. The port is now ready for im mediate use. Patient will be contacted in 1-2 week s for a post port placement incision check. I certify my physical presence at the ti me of the procedure. I personally reviewed the image(s) and the SPENCER's inte rpretation and agree with the written report. Confirm ABORh (05/29/2021 9:28 AM CDT) Pathologist Sig nature ABOR Confirm. B POS [facility] CANCER [facility] ER Specimen Blood Performing Organization Address City/[facility]/ZIP Code Phon e Number [facility] Unless otherwise noted, [place] [address] [place] all lab tests performed by: Division of Pathology and Laboratory Medicine [address] [place] [address] [place] 125 (05/24/2021 8:12 AM CDT) Pathologist [facility] CA 125 27.2 <=38.0 U/mL [facility] Comment: REGION Results greater than 11,500. 0 U/L may not be reliable due to matrix effect with extended dilution as it exceeds the supervisor product inspection s recommended limit. Caution should be exercised when interpreting such values and done in conjunction with clinical context. Reference intervals are not available for male patients. Results should be interpreted in conjunction with clinical context. Testing performed at [facility], [address] [facility], [place] [address] Specimen Blood Narrative [facility] - 05/24/2021 9: 12 AM CDT Within 72 hours prior to each chemothera py infusion. Performing Organization Address City/State/ZIP [place] [id number] (ABNORMAL) CEA (05/24/2021 8:12 AM CDT) Pathologist Sig jessy CEA 16.6 (H) <=3.8 ng/mL [facility] Comment: REGION Reference Ranges: Smoker: 0.0-5.5 Non-Smoker: 0.0-3.8 Testing performed at [facility]e [facility], [address], [place] [address] Specimen Blood Narrative [facility] - 05/24/2021 9: 12 AM CDT within 72 hours prior to the start of ch emotherapy infusion. Performing Organization Address City/State/ZIP [place] [address] (ABNORMAL) Calcium Ionized, Venous (05/18/2021 10:59 AM CDT) Pathologist Sig jessy V Ion Ca 1.11 (L) 1.15 - 1.29 mmol/L [facility] Specimen Blood Performing Organization Address City/State/ZIP Code Phon e Number [facility] CANCER Unless otherwise noted, [place] [address] CENTER all lab tests performed by: Division of Pathology and Laboratory Medicine [facility] Echocardiogram 2D Complete (05/18/2021 9:29 AM CDT) Specimen Narrative [facility] - 05/18/2021 10:56 AM CDT Echocardiographic Report Interpretation Summary A complete two-dimensional transthoracic echocardiogram was performed (2D, M- mode, Spectral and color Doppler). There is no comparison study available. LV is dilated using volumetric criteria. Left ventricular systolic function is no rmal. LV ejection fraction calculated using th e bi-plane method of disks is 58 %. The right ventricle is normal in size an d function. Right ventricular systolic pressure is n ormal. There is no pericardial effusion. Left Ventricle: LV is dilated using volumetric criteria. There is normal left ventricular wall thickness. LV ejection fraction calculated using the bi-plane method of disks is 58 %. Left ventricular systolic function is normal. I WMSI = 1.00 % Normal = 1 00 Normal global longitudinal peak systolic value X - Cannot 1 - Normal 2 - 3 - Akinetic 4 - Dyskinetic Interpret Hyp okinetic 5 - Aneurysmal 3D imaginD volumes were not performed in this st udy. Cardiac Mechanics/Speckle Tracking Imagi ng: Normal global longitudinal peak systolic value. Strain Imaging was performed; GLPS avg = 22.1%. Diastology: Impaired LV relaxation pattern as expect ed for age. Right Ventricle: The right ventricle is normal in size an d function. Normal RV systolic function using TAPSE criteria. Atria: Atria are normal in size. Mitral Valve: Mild thickening changes are noted. Tricuspid Valve: The tricuspid valve is not well visualiz ed, but is grossly normal. There is trace tricuspid regurgitation. Estimated RVSP is 20-25mmHg. Right ventricular systolic pressure is normal. Aortic Valve: The aortic valve opens well. Pulmonic Valve: The pulmonic valve is not well visualize d. Trace pulmonic valvular regurgitation. Great Vessels: The aortic root is normal size. The infe rior vena cava demonstrates normal size and normal respiratory variation. Pericardium/Pleural: There is no pericardial effusion. An ech o lucent space is noted consistent with prominent pericardial fat pad. Preliminary Reviewer Preliminary Interpretation: Paulina Baldwin MD. MMode/2D Measurements IVSd: 1.1 cm LVIDd: 3.7 cm LVIDs: 2.7 cm LVPWd: 1.0 cm FS: 25.3 % Ao root diam: 3.3 cm Ao root area: 8.3 cm2 LA dimension: 2.3 cm LVOT diam: 2.2 cm EDV(MOD-A4C): 109.9 ml ESV(MOD-A4C): 48.0 ml LVOT area: 3.8 cm2 EF(MOD-A4C): 56.4 % EDV(MOD-A2C): 90.2 ml ESV(MOD-A2C): 36.1 ml EDV(MOD-bp): 100.4 ml EF(MOD-A2C): 60.0 % ESV(MOD-bp): 42.1 ml EF(MOD-bp): 58.1 % LAV(MOD-A2C): 42.2 ml EDV (MOD-bp) Index: 71.7 ml/m2 LAV(MOD-A4C): 41.3 ml LAV(MOD-bp): 43.9 ml LAV(MOD-bp) Indexed: 31.3 ml/m2 ESV (MOD-bp) Index: 30.0 ml/m2 RWT: 0.55 cm TAPSE (>1.6): 2.2 cm Doppler Measurements MV E max danielito: 100.1 cm/sec MV V2 max: 123.5 cm/sec MV A max danielito: 128.6 cm/sec MV max P.1 mmHg MV E/A: 0.78 MV V2 mean: 65.5 cm/sec MV mean P.1 mmHg MV V2 VTI: 29.0 cm MVA(VTI): 2.7 cm2 MV P1/2t max danielito: 100.5 cm/sec Ao V2 max: 111.3 cm/sec MV P1/2t: 62.8 msec Ao max P.0 mmHg Ao V2 mean: 70.6 cm/sec MVA(P1/2t): 3.5 cm2 Ao mean P.3 mmHg MV dec slope: 469.0 cm/sec2 Ao V2 VTI: 21.9 cm GALEN(I,D): 3.6 cm2 GALEN(V,D): 3.1 cm2 LV V1 max P.2 mmHg SV(LVOT): 79.4 ml LV V1 mean P.5 mmHg LV V1 max: 89.7 cm/sec LV V1 mean: 55.4 cm/sec LV V1 VTI: 20.8 cm PA V2 max: 93.2 cm/sec PI max danielito: 167.4 cm/sec PA max P.5 mmHg PI max P.2 mmHg PA V2 mean: 59.6 cm/sec PI dec slope: 193.0 cm/sec2 PA mean P.6 mmHg PA V2 VTI: 16.8 cm TR max danielito: 234.7 cm/sec RAP systole: 3.0 mmHg TR max P.0 mmHg RVSP(TR): 25.0 mmHg GALEN Index (I,D): 2.6 GALEN Index (V,D): 2.2 Dimensionless Index: 0.81 E/e' (avg): 11.4 E/e' (lat): 9.5 E/e' (sept): 14.3 58 Procedure Note Alosno Quiroz MD - 05/18/2021 Echocardiographic Report Interpretation Summary A complete two-dimensional transthoracic echocardiogram was performed (2D, M- mode, Spectral and color Doppler). There is no comparison study available. LV is dilated using volumetric criteria. Left ventricular systolic function is no rmal. LV ejection fraction calculated using th e bi-plane method of disks is 58 %. The right ventricle is normal in size an d function. Right ventricular systolic pressure is n ormal. There is no pericardial effusion. Left Ventricle: LV is dilated using volumetric criteria. There is normal left ventricular wall thickness. LV ejection fraction calculated using the bi-plane method of disks is 58 %. Left ventricular systolic function is normal. I WMSI = 1.00 % Normal = 100 Normal global longitudinal peak systolic value X - Cannot 1 - Normal 2 - 3 - Akinetic 4 - Dyskinetic Interpret Hypokinetic 5 - Aneurysmal 3D imaginD volumes were not performed in this [facility]. Cardiac Mechanics/Speckle Tracking Imagi ng: Normal global longitudinal peak systolic value. Strain Imaging was performed; GLPS avg = 22.1%. Diastology: Impaired LV relaxation pattern as expect ed for age. Right Ventricle: The right ventricle is normal in size an d function. Normal RV systolic function using TAPSE criteria. Atria: Atria are normal in size. Mitral Valve: Mild thickening changes are noted. Tricuspid Valve: The tricuspid valve is not well visualiz ed, but is grossly normal. There is trace tricuspid regurgitation. Estimated RVSP is 20-25mmHg. Right ventricular systolic pressure is normal. Aortic Valve: The aortic valve opens well. Pulmonic Valve: The pulmonic valve is not well visualize d. Trace pulmonic valvular regurgitation. Great Vessels: The aortic root is normal size. The infe rior vena cava demonstrates normal size and normal respiratory variation. Pericardium/Pleural: There is no pericardial effusion. An ech o lucent space is noted consistent with prominent pericardial fat pad. Preliminary Reviewer Preliminary Interpretation: Paulina Baldwin MD. MMode/2D Measurements IVSd: 1.1 cm LVIDd: 3.7 cm LVIDs: 2.7 cm LVPWd: 1.0 cm FS: 25.3 % Ao root janki m: 3.3 cm Ao root are a: 8.3 cm2 LA dimensio n: 2.3 cm LVOT diam: 2.2 cm EDV(MOD-A4C ): 109.9 ml ESV(MOD-A4C ): 48.0 ml LVOT area: 3.8 cm2 EF(MOD-A4C) : 56.4 % EDV(MOD-A2C): 90.2 ml ESV(MOD-A2C): 36.1 ml EDV(MOD-bp) : 100.4 ml EF(MOD-A2C): 60.0 % ESV(MOD-bp) : 42.1 ml EF(MOD-bp): 58.1 % LAV(MOD-A2C): 42.2 ml EDV (MOD-bp ) Index: 71.7 ml/m2 LAV(MOD-A4C): 41.3 ml LAV(MOD-bp): 43.9 ml LAV(MOD-bp) Indexed: 31.3 ml/m2 ESV (MOD-bp) Index: 30.0 ml/m2 RWT: 0.55 c m TAPSE (>1.6): 2.2 cm Doppler Measurements MV E max danielito: 100.1 cm/sec MV V2 max: 123.5 cm/sec MV A max danielito: 128.6 cm/sec MV max P.1 mmHg MV E/A: 0.78 MV V2 mean: 65.5 cm/sec MV mean P.1 mmHg MV V2 VTI: 29.0 cm MV A(VTI): 2.7 cm2 MV P1/2t max danielito: 100.5 cm/sec Ao V2 max: 111.3 cm/sec MV P1/2t: 62.8 msec Ao max P.0 mmHg Ao V2 mean: 70.6 cm/sec MVA(P1/2t): 3.5 cm2 Ao mean P.3 mmHg MV dec slope: 469.0 cm/sec2 Ao V2 VTI: 21.9 cm AV A(I,D): 3.6 cm2 AV A(V,D): 3.1 cm2 LV V1 max P.2 mmHg SV (LVOT): 79.4 ml LV V1 mean P.5 mmHg LV V1 max: 89.7 cm/sec LV V1 mean: 55.4 cm/sec LV V1 VTI: 20.8 cm PA V2 max: 93.2 cm/sec PI max danielito: 167.4 cm/sec PA max P.5 mmHg PI max P.2 mmHg PA V2 mean: 59.6 cm/sec PI dec slope: 193.0 cm/sec2 PA mean P.6 mmHg PA V2 VTI: 16.8 cm TR max danielito: 234.7 cm/sec RA P systole: 3.0 mmHg TR max P.0 mmHg RVSP(TR): 25.0 mmHg GALEN Index (I,D): 2.6 AV A Index (V,D): 2.2 Dimensionless Index: 0.81 E/ e' (avg): 11.4 E/e' (lat): 9.5 E/ e' (sept): 14.3 58 Performing Organization Address City/State/ZIP Code Phon e Number [facility] (ABNORMAL) T4 (05/16/2021 12:14 AM CDT) Pathologist Sig nature T4 11.8 (H) 4.5 - 11.7 mcg/dL [facility] Specimen Blood Performing Organization Address City/State/ZIP Code Phon e Number [facility] Unless otherwise noted, [address] all lab tests performed by: Division of Pathology and Laboratory Medicine [address] [place] [address] MRI CERVICAL THORACIC LUMBAR SPINE W WO CONTRAST (05/04/2021 3:19 AM CDT) Specimen Impressions [id number] - 05/04/2021 7:09 AM CDT 1. No evidence of cord compression. 2. No findings to suggest malignancy o r metastasis to the imaged spine. 3. Degenerative facet hypertrophy and disk protrusion with annular fissure at L4/L5 results in approximately 50% spinal canal stenosis at that level without imaging evidence of cauda equina compression. 4. Enlarged symmetric appearing thyroi d with subcentimeter nodules. This is nonspecific, although could represent thyroiditis. Recommend further evaluation with ultrasound of the neck. This report is a preliminary interpretat ion by a resident and is not final until reviewed and cosigned by an attending radiologist. I personally reviewed these image(s) sue pugh with the resident's/fellow's interpretations, certify that if a procedure was performed I was physically present, and agree with the final report. Narrative [id number] - 05/04/2021 7:09 AM CDT FULL RESULT: Examination: MRI CERVICAL THORACIC LUMBA R SPINE W WO CONTRAST, 05/04/2021 3:19 AM. 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 Findings: Cervical spine: Vertebral body alignme nt is within normal limits. Marrow signal is homogenous. No significant spinal canal stenosis is present. There is no cord signal abnormality or cord compress ion. Incidental symmetric enlargement of the thyroid. There are a couple of nonspecific and incompletely evaluated thyroid nodules that measure up to 7 mm in the right lobe. Thoracic spine: Vertebral body alignment is within normal limits. Marrow signal is homogenous. No significant spinal canal stenosis is present. There is no cord signal abnormality or cord compression. Lumbosacral spine: Vertebral body alignm ent is within normal limits. Marrow signal is homogenous. There is a 5 mm disc protrusion with annular fissure at the level of L4/L5 which results in approximat elizabeth 50% spinal canal stenosis at that le danielito without imaging evidence of compression of the cauda equina. There is T2 hyperintense signal and enhancement involving the inferior L2 and superior L3 endplat es, which is compatible with acute degen erative changes. Incidental renal cyst on the right side measures 4.5 cm with no visualized internal enhancement. Procedure Note Parker Fernandez MD - 05/04/2021 FULL RESULT: Examination: MRI CERVICAL THORACIC LUMBA R SPINE W WO CONTRAST, 05/04/2021 3:19 AM. 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 Findings: Cervical spine: Vertebral body alignmen t is within normal limits. Marrow signal is homogenous. No significant spinal canal stenosis is present. There is no cord signal abnormality or cord compression. Incidental symmetric enlargement of the thyroid. Th ere are a couple of nonspecific and incompletely evaluated thyroid nodules that measure up to 7 mm in the right lobe. Thoracic spine: Vertebral body alignment is within normal limits. Marrow signal is homogenous. No significant spinal canal stenosis is present. There is no cord signal abnormality or cord compression. Lumbosacral spine: Vertebral body alignm ent is within normal limits. Marrow signal is homogenous. There is a 5 mm disc protrusion with annular fissure at the level of L4/L5 which results in approximately 50% spinal canal stenosis at that level without fozia ging evidence of compression of the cauda equina. There is T2 hyperintense signal and enhancement involving the inferior L2 and superior L3 endplates, which is compatible with acute degenerative changes. Inciden luanne renal cyst on the right side measures 4.5 cm with no visualized internal enhancement. IMPRESSION: 1. No evidence of cord compression. 2. No findings to suggest malignancy or metastasis to the imaged spine. 3. Degenerative facet hypertrophy and d isk protrusion with annular fissure at L4/L5 results in approximately 50% spinal canal stenosis at that level without imaging evidence of cauda equina compression. 4. Enlarged symmetric appearing thyroid with subcentimeter nodules. This is nonspecific, although could represent thyroiditis. Recommend further evaluation with ultrasound of the neck. This report is a preliminary interpretat ion by a resident and is not final until reviewed and cosigned by an attending radiologist. I personally reviewed these image(s) sue ng with the resident's/fellow's interpretations, certify that if a procedure was performed I was physically present, and agree with the final report. Performing Organization Address City/[facility] Phon e Number [id number] Folate, RBC (05/03/2021 8:53 AM CDT) Pathologist Sig nature Folate, RBC 964 >280 ng/mL RBC [facility] Comment: Lab test performed by: Lab Mnemonic: [facility] [employer] [address] [id number] REGINA BEGUM MD Specimen Blood Performing Organization Address City/[facility]/ZIP Code Phon e Number [facility] AFP (05/03/2021 8:53 AM CDT) Pathologist Sig nature AFP <2.7 <=8.3 ng/mL MD [facility] Comment: [facility] Results greater than 45,875. 00 ng/mL may not be reliable due to matrix effect with extended dilution as it exceeds the supervisor product inspection's recommended limit. Caution should be exercised when interpreting such values and done in conjunction with clinical context. Specimen Blood Performing Organization Address [facility] Phon e Number MD [facility] Unless otherwise noted, [place] [address] CENTER all lab tests performed by: Division of Pathology and Laboratory Medicine [address] [place] Free T3 (05/03/2021 8:53 AM CDT) Pathologist Sig nature Free T3 2.9 2.0 - 4.4 pg/mL [facility] CANCER [address] Specimen Blood Performing Organization Address [facility] Phon e Number [facility] CANCER Unless otherwise noted, [address] all lab tests performed by: Division of Pathology and Laboratory Medicine [address] [place] Potassium Urine (05/02/2021 10:12 PM CDT) Pathologist Sig nature U Potassium 7Comment: Normal range mEq/L [facility] not available for [facility] collections less than 24 hours in duration. Specimen Urine Performing Organization Address [facility] Phon e Number [facility] CANCER Unless otherwise noted, [address] all lab tests performed by: Division of Pathology and Laboratory Medicine [address] [place] (ABNORMAL) Creatinine Urine (05/02/2021 10:12 PM CDT) U Creatinine 24.7 (L)Comment: 29.0 - 226.0 [facility] The reference range mg/dL [facility] listed is for first morning urine collection. Specimen Urine Performing Organization Address [facility] Phon e Number [facility] CANCER Unless otherwise noted, [address] all lab tests performed by: Division of Pathology and Laboratory Medicine [address] [place] [address] Abdomen Pelvis without IV Contrast (05/02/2021 1:10 AM CDT) Specimen Impressions [id number] - 05/02/2021 9:16 AM CDT 1. Exam is limited by lack of intravenous contrast. 2. Biliary stent and external biliary drain are intact 3. Thickening of the wall of the commo n bile duct likely consistent with the patient's history of adenocarcinoma of the common bile duct. 4. No dilated loops of bowel. I personally reviewed these image(s) sue ng with the resident's/fellow's interpretations, certify that if a procedure was performed I was physically present, and agree with the final report. Narrative [id number] - 05/02/2021 9:16 AM CDT FULL RESULT: Examination: CT ABDOMEN PELVIS WO [facility], 05/02/2021 1:10 AM Clinical History: Abdominal pain Acute h eadache Nausea Primary adenocarcinoma of common bile duct. Indication: nausea and abd pain Comparison: Outside MRI abdomen dated 03/25/2021. No previous CT comparison. Technique: CT of the abdomen and pelvis was performed without intravenous contrast. Findings: Exam is limited by lack of intravenous c ontrast. A biliary stent is noted with tip in the duodenum. There is a left external biliary drain also with tip terminating in the duodenum. A right hip arthroplasty is seen. The visualized portion of the lungs show bibasilar subsegmental atelectasis. The liver is otherwise unremarkable. The re is thickening of the wall of the common bile duct likely consistent with the patient's history of adenocarcinoma of the common bile duct (series 3 image 39). Spleen, pancreas, adrenal glands are unr emarkable. There is a large lower pole simple renal cyst in the right kidney measuring up to 4.5 cm in size. The kidneys otherwise appear unremarkable on this non contrast exam. The bladder is normal but distended. The gastrointestinal tract is unremarkab le with no bowel dilatation. No lytic or blastic bony lesions. Chroni c appearing mild degenerative changes of the spine. Procedure Note Colby Pugh MD - 05/02/2021 FULL RESULT: Examination: CT ABDOMEN PELVIS [facility], 05/02/2021 1:10 AM Clinical History: Abdominal pain Acute h eadache Nausea Primary adenocarcinoma of common bile duct. Indication: nausea and abd pain Comparison: Outside MRI abdomen dated 0 03/25/2021. No previous CT comparison. Technique: CT of the abdomen and pelvis was performed without intravenous contrast. Findings: Exam is limited by lack of intravenous c ontrast. A biliary stent is noted with tip in the duodenum. There is a left external biliary drain also with tip terminating in the duodenum. A right hip arthroplasty is seen. The visualized portion of the lungs show bibasilar subsegmental atelectasis. The liver is otherwise unremarkable. The re is thickening of the wall of the common bile duct likely consistent with the patient's history of adenocarcinoma of the common bile duct (series 3 image 39). Spleen, pancreas, adrenal glands are unr emarkable. There is a large lower pole simple renal cyst in the right kidney measuring up to 4.5 cm in size. The kidneys otherwise appear unremarkable on this noncontrast exam. The bladder is normal but distended. The gastrointestinal tract is unremarkab le with no bowel dilatation. No lytic or blastic bony lesions. Chroni c appearing mild degenerative changes of the spine. IMPRESSION: 1. Exam is limited by lack of intraveno us contrast. 2. Biliary stent and external biliary d rain are intact 3. Thickening of the wall of the common bile duct likely consistent with the patient's history of adenocarcinoma of the common bile duct. 4. No dilated loops of bowel. I personally reviewed these image(s) sue ng with the resident's/fellow's interpretations, certify that if a procedure was performed I was physically present, and agree with the final report. Performing Organization Address City/[facility] Code Phon e Number [id number] OSI Chest (04/16/2021 7:41 AM CDT) Specimen Narrative Systemgenerated, Documentation - 021 7:42 AM CDT Study acquired at another institution. For comparison only. No [facility] originated interpretation requested or a vailable. OSI CT Abdomen and Pelvis (04/15/2021 7:42 AM CDT) Specimen Narrative Systemgenerated, Documentation - 021 7:42 AM CDT Study acquired at another institution. For comparison only. No [facility] originated interpretation requested or a vailable. IHC MSI (MLH1, MSH2, MSH6, PMS2) Material Request (04/14/2021 2:11 PM CDT) Specimen Tissue Performing Organization Address City/[facility]/ZIP Code Phon e Number [facility] [place] [address] [address] [place] IHC HER2/jackson Material Request (04/14/2021 2:11 PM CDT) Specimen Tissue Performing Organization Address City/State/ZIP Code Phon e Number [place] [address] [address] [place] IHC BRAF [id number] Material Request (04/14/2021 2:11 PM CDT) Specimen Tissue Performing Organization Address City/[facility]/ZIP Code Phon e [place] [address] [address] [place] OSI MRI Head (04/01/2021 12:23 PM CDT) Specimen Narrative Systemgenerated, Documentation - 021 12:23 PM CDT Study acquired at another institution. For comparison only. No [facility] originated interpretation requested or a vailable. OSI CT Chest (03/31/2021 12:23 PM CDT) Specimen Narrative Systemgenerated, Documentation - 021 12:23 PM CDT Study acquired at another institution. For comparison only. No [facility] originated interpretation requested or a vailable. OSI ERCP (03/27/2021 12:23 PM CDT) Specimen Narrative Systemgenerated, Documentation - 021 12:23 PM CDT Study acquired at another institution. For comparison only. No [facility] originated interpretation requested or a vailable. Pathology Outside Interpretation (03/27/2021) Materials Accession#, Stained, Block, Unstained Collected Receiv ed [facility] Received A. [id number], 3 SS, 0 BLOCKS, 0 USS 03/27/2021 04/11/2021 Addendum 1 Additional material received on 05/03/2021, Outside [id number], 0 SS, 1 BLOCK, 0 USS, collected on 03/27/2021. [facility] Addendum electronically Immunohistochemical stain fo r HER-2/jackson is positive (score 3+) by gastroesophageal criteria. signed by Delia Goff MD on The tumor cells show retaine d nuclear expression for the mismatch repair proteins MLH1, PMS2, MSH6, and MSH2, favoring a low probability for high microsatellite instability. 05/09/2021 at 8:47 AM Diagnosis Three outside slides ([id number], 03/27/2021) desig nated as follows: [facility] Electronically signed by Kristi curry Common bile duct, biopsy (A1, IHC x 2): MD Geovany on 04/12/2021 at 3 :04 INVASIVE ADENOCARCINOMA WITH MUCINOUS FEATURES (SEE CO MMENT). PM MWT/FHC1 Comment The tumor appears to be [facility] composed of epithelium forming a papillary structure and also dyshesive cells within mucin (moderately to poorly differentiated adenocarcinoma on this limited biopsy). The neoplastic cells are positive for cytokeratin 7. The submitted immunohistochemical stain for SMAD4 shows inconclusive findings. Clinical and radiologic correlation is recommended. Electrical Maintenance Worker(s) RACHELF [facility] Biomarker Tumor block: A1 [facility] Block(s) Disclaimer "Some tests reported here [facility] may have been developed and performance characteristics determined by [facility] Pathology and Laboratory Medicine. These tests have not been specifically cleared or approved by the U.S. Food and Drug Administration. If applicable, controls were reviewed and showed appropriate reactivity." Specimen Tissue Performing Organization Address City/State/ZIP Code Phon e Number [facility] [place] [address] [address] [place] OSI MRI ABDOMEN (03/25/2021 12:24 PM CDT) Specimen Narrative Systemgenerated, Documentation - 021 12:24 PM CDT Study acquired at another institution. For comparison only. No [facility] originated interpretation requested or a vailable. after 09/22/2020 Additional Health Concerns Infection Onset Date Last Indicated Clostridium Difficile 09/17/2021 09/17/2021 Insurance Payer Benefit Plan / Subscriber ID Effective Phone Address T ype Group Dates MEDICARE MEDICARE PART [id number] 2014-Pres [phone] [place] Medicare A AND B ent [id number] [address] [facility] [place] [id number] HUMANA NON HUMANA NON [id number] 2019-Pres [address] CONTRACTED CONTRACTED ent [id number] [place] [address] Advance Directives Type Date Recorded Patient [place] Explanati on Advance Directives: 08/29/2021 12:00 AM Medical P ower of Medical Power of Manuscripts Archivist Manuscripts Archivist Advance Directives: 08/20/2021 12:00 AM Medical Power of Medical Power of Manuscripts Archivist Manuscripts Archivist Code Status Date Activated Date Inactivated Comments Full Code 09/17/2021 5:33 PM 09/19/2021 2:13 PM Full Code 08/20/2021 3:28 AM 08/26/2021 2:50 PM Full Code 07/19/2021 1:19 AM 07/21/2021 1:30 PM Full Code 06/22/2021 9:36 AM 07/07/2021 8:43 PM Full Code 06/16/2021 8:12 PM 06/21/2021 2:52 PM 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
--- OUTSIDE RECORDS SUMMARY | 2021-09-22 01:24 | XMS REPORT | Continuity of Care Document ---
:1950 Author Organization [facility] t Address [address] [place] [address] Care Team Providers Name Role Phone Marine Primary Care Physician SYSTEM, NOT IN Attending Clinician Unavailable Loly QUIÑONEZ Attending Clinician Unavailable Brittanie MONCADA Attending Clinician Unavailable Evelina Henson Attending Clinician Evelina BARNETT Attending Clinician Unavailable Pankaj HAWKINS, L Attending Clinician Unavailable Antwan NICOLAS Attending Clinician Alejandro Hanson MA Attending Clinician Unavailable Giovana Bonilla Attending Clinician Giovana BENNETT Attending Clinician Unavailable Alvin HAWKINS R Attending Clinician Jarrett BAINS Attending Clinician Unavailable Provider Attending Clinician Unavailable Allen NICOLAS Attending Clinician Pratibha NICOLAS Attending Clinician Loly Zuluaga MD Attending Clinician Jarrett Bains MD Attending Clinician Trevin HAWKINS, M Attending Clinician Unavailable Lalit Eden RN Attending Clinician Unavailable ANTWAN Attending Clinician Unavailable Venecia BOB Attending Clinician Trevon HAWKINS, S Attending Clinician Unavailable Champ HANNON Attending Clinician Jc FUENTES Attending Clinician CHAMP Attending Clinician Unavailable Halie Mitchell Attending Clinician Ashley NARVAEZ Attending Clinician Connie NICOLAS Attending Clinician Marli Lanza RN Attending Clinician Unavailable CONRAD PHILLIPS Attending Clinician Unavailable Ruperto NICOLAS Attending Clinician Elizabeth NICOLAS Attending Clinician Maura Garner MD Attending Clinician Conrad Phillips MD Attending Clinician RUPERTO Attending Clinician Unavailable Annemarie NICOLAS Attending Clinician Jesus FITZGERALD Attending Clinician Taya OLIVER Attending Clinician Prakash NARVAEZ Attending Clinician Jhonny HAWKINS Attending Clinician Moises Rangel, K Attending Clinician Unavailable Toya NICOLAS Attending Clinician Richard ALDRICH Attending Clinician Noah NICOLAS Attending Clinician Jin FLYNN Attending Clinician PRATIBHA Attending Clinician Unavailable Jarrett Bundy MD Attending Clinician Moraima FUENTES Attending Clinician Thais Gibbons RN Attending Clinician Giovanna Corcoran MD Attending Clinician Chris NICOLAS Attending Clinician Sergio NICOLAS Attending Clinician DOMINGO Attending Clinician Unavailable VICKEY Attending Clinician Unavailable Amita HUERTA Attending Clinician Unavailable Phill NICOLAS Attending Clinician Rama FLYNN Attending Clinician Loly Quiñonez MD Attending Clinician Giovanna CORCORAN Attending Clinician Unavailable Caroline NICOLAS Attending Clinician Jason LIGHT Attending Clinician NEERAJ Attending Clinician Unavailable Allyson NICOLAS Attending Clinician Alejandro NICOLAS Attending Clinician Tunde NICOLAS Attending Clinician Neeraj NICOLAS Attending Clinician HOME Attending Clinician Unavailable Tamiko OLIVER Attending Clinician ALLYSON Attending Clinician Unavailable Ed CARRIZALES Attending Clinician Unavailable Ed Ramesh Attending Clinician Ulises NICOLAS Attending Clinician RAMIRO Attending Clinician Unavailable Talha FUENTES Attending Clinician Shmuel BOB K Attending Clinician Joel HAWKINS Attending Clinician Unavailable Demarcus FUENTES Attending Clinician Doctor Unassigned, Name Attending Clinician Unavailable Michael Moy MD Attending Clinician Praveen HAWKINS Attending Clinician Unavailable LOBO Attending Clinician Unavailable Azeb NICOLAS Attending Clinician Cathy NICOLAS Attending Clinician Lobo NICOLAS Attending Clinician David NICOLAS Attending Clinician Jarrett Boswell MD. Attending Clinician Brittanie Moncada MD Attending Clinician Long Love MD Attending Clinician Evelina Golden Attending Clinician Tk FISHER Attending Clinician Unavailable Ruben FITZGERALD Attending Clinician Unavailable Emiliano Kunz MD Attending Clinician Aby NICOLAS Attending Clinician Madison HAWKINS Attending Clinician Unavailable Tyler FUENTES Attending Clinician TYLER Attending Clinician Unavailable Aydee THURMAN Attending Clinician Unavailable Giovanna Degroot Attending Clinician KOREY RENAE Attending Clinician Unavailable Zac Zayas MD Attending Clinician Korey Renae MD Attending Clinician Micheline NICOLAS Attending Clinician JUSTIN Attending Clinician Unavailable MICHELINE Attending Clinician Unavailable ML Attending Clinician Unavailable Giovana DOOLEY Attending Clinician Unavailable Tete HAWKINS, RMaribeth Attending Clinician Unavailable Derik FISHER Attending Clinician Edy FUENTES Attending Clinician ROLAN Attending Clinician Unavailable Everett NICOLAS Attending Clinician Anton ALDRICH Attending Clinician Rolan NICOLAS Attending Clinician Deonna Pollard MD Attending Clinician Luís NICOLAS Attending Clinician Domingo FUENTES Attending Clinician CHELY Attending Clinician Unavailable MANPREET NULL Admitting Clinician Unavailable Loly QUIÑONEZ Admitting Clinician Unavailable Brittanie MONCADA Admitting Clinician Unavailable PRATIBHA Admitting Clinician Unavailable ELIZABETH Admitting Clinician Unavailable RICHARD Admitting Clinician Unavailable Giovanna CORCORAN Admitting Clinician Unavailable ALEJANDRO Admitting Clinician Unavailable KOREY RENAE Admitting Clinician Unavailable ROLAN Admitting Clinician Unavailable CHELY Admitting Clinician Unavailable Payers Payer Name Policy Type Policy Effective Date Expiration Date Sour ce Number MEDICARE PART A [id number] 2014 \\T\\ B 00:00:00 [facility] [id number] 2014 2 00:00:00 MEDICARE PART A [id number] 2014 AND B 00:00:00 HUMANA NON [id number] 2019 CONTRACTED 00:00:00 HUMANAHUMANA [id number] 2019 [id number] 0-PresentPPO HUMANA NATIONAL [id number] 2019 OPEN ACCESS/ACCESS 00:00:00 PLUS Problems Condition Condition Condition Status Onset Resolution Last Treating Co mments Source Name Details Category Date Date Treatment Clinician Date Colitis Colitis Disease Active 2020-10 1 Anders[facility] 00:00: n 00 Fever Fever Disease Active 2020-10 presenting presenting 0-31 An derso with with 00:00: n conditions conditions 00 classified classified elsewhere elsewhere Cholangiti Cholangiti Disease Active M D s s 07-19 Anderso 00:00: n 00 Hyponatrem Hyponatrem Disease Active M D ia ia 8 Anderso 00:00: n 00 Nausea and Nausea and Disease Active M D vomiting vomiting 05-16 Baa o 00:00: n 00 Metabolic Metabolic Disease Active acidemia acidemia 05-16 Aba o 00:00: n 00 Anemia Anemia Disease Active 05-16 Anderso 00:00: n 00 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 Added automatic ally from request for surgery [id number] Alkaline Alkaline Disease Active phosphatas phosphatas 14 An derso e raised e raised 00:00: n 00 Subclinica Subclinica Disease Active M D l l 7-14 Anderso hypothyroi hypothyroi 00:00: n dism dism 00 Obstructio Obstructio Disease Active Overview : n of n of 7-14 Formattin Anderso biliary biliary 00:00: g of this n tree tree 00 note might be different from the original. With R stent and L int/exter nal biliary drain placed by GI and IR at [facility] in 03/2021. 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 Added automatic ally from request for surgery [id number] Gastrointe Gastrointe Disease Active Overview : Univers stinal stinal 604 Formattin ity of hemorrhage hemorrhage 00:00: g of this [place] , , 00 note Medical unspecifie unspecifie might be Branch d d different gastrointe gastrointe from the stinal stinal original. hemorrhage hemorrhage Added type type automatic ally from request for surgery [id number] DM DM Disease Active Univers (diabetes (diabetes ity of mellitus) mellitus) [place] [facility] [place] Adjustment Adjustment Disease Active M D disorder disorder Aba o with mixed with mixed n anxiety anxiety and and depressed depressed mood mood Anorexia Anorexia Disease Active MD [place] n Abdominal Abdominal Disease Active pain, pain, Anderso right right n upper upper quadrant quadrant Acute Acute Disease Resolve 2021-05-23 2021-05-23 kidney kidney d 05-02 00:00:00 14:37:51 Aba o failure failure 00:00: n 00 Migration Migration Disease Resolve 2021-05-20 2021-05-20 of of d 05-20 00:00:00 11:17:40 Aba o percutaneo percutaneo 00:00: n us 00 transhepat transhepat ic biliary ic biliary drain drain catheter catheter Allergies, Adverse Reactions, Alerts Allergy Allergy Status Severity Reaction(s) Onset Inactive Treating Comm ents Source Name Type Date Date Clinician MORPHINE DRUG Active N/V Univers INGREDI 04-15 ity of 00:00: [place] 00 Medical Branch Hydrocod Propensi Active Palpitations 2015-10 Headach es Univers one ty to 10-21 ity of adverse 00:00: [place] reaction 00 Medical s Branch Morphine Drug Active Nausea 2015-10 Other Univers Allergy and/or 10-21 reaction( ity of Vomiting 00:00: s): Other [place] 00 (see Medical comments) Branch HYDROCOD DRUG Active High N/V 2015-10 Univers ONE INGREDI 10-21 ity of 00:00: [place] 00 Medical Branch MORPHINE DRUG Active High N/V 2015-10 Univers INGREDI 10-21 ity of 00:00: [place] 00 Medical Branch Social History Social Habit Start Date Stop Date Quantity Comments Source History [facility] MD Tavarez Alcohol Std Drinks History [facility] MD Tavarez Alcohol Binge History [facility] MD Tavarez Alcohol Comment Exposure to Not sure MD Tavarez SARS-CoV-2 (event) History of tobacco Cigarette Smoker University of use [facility] Alcohol intake 2021-08-22 2021-08-22 Lifetime MD Worley n 00:00:00 00:00:00 non-drinker (finding) Tobacco use and 2021-07-19 2021-07-19 Smokeless MD [place] on exposure 00:00:00 00:00:00 tobacco non-user History SDOH 2021-05-02 2021-05-02 1 MD Tavarez Alcohol Frequency 00:00:00 00:00:00 Cigarettes smoked 2021-04-18 2021-04-18 Univers ity of current (pack per 00:00:00 00:00:00 ) - Reported Branch Cigarette 2021-04-18 2021-04-18 University of pack-years 00:00:00 00:00:00 [facility] Sex Assigned At [birth year] MD [place] on 00:00:00 00:00:00 Smoking Status Start Date Stop Date Source Never smoked tobacco MD Tavarez Current every day smoker 2021-04-18 00:00:00 Uni versity of [facility] Medications Ordered Filled Start Stop Current Ordering Indication Dosage Frequency Signature Comments Components Source Medication Medication Date Date Medication? Clinician (SIG) Name Name pantoprazol 2020-10 Yes Gastro-esop 40mg Take 1 MD e 2-01 hageal tablet (40 Anderso (PROTONIX) 00:00: reflux mg) by n 40 mg EC 00 disease mouth tablet without daily. esophagitis , not otherwise specified empaglifloz 2020-10- No 1{tbl} Take 1 M D in 1-30 11-30 tablet by Anderso (Jardiance) 12:08: 00:00 mouth n 10 mg tab 30 :00 daily. cholecalcif 2020-10 Yes 1000U Take 1,000 MD macho, 1-30 Units by Anderso vitamin D3, 12:08: mouth n (VITAMIN 24 daily. D3) 4,000 units tab tablet pravastatin 2020-10 Yes hyperlipide 40mg Take 40 mg MD (PRAVACHOL) 1-30 josh by mouth Servando rso 40 mg 12:08: daily. n tablet 24 ascorbic 2020-10 Yes 1000mg Take 1,000 M D acid, 1-30 mg by Anderso vitamin C, 12:08: mouth n (vitamin C) 24 daily. 1000 mg tablet calcium 2020-10 Yes Take by MD carbonate 1-30 mouth. Anderso (MAALOX RS 12:08: n ORAL) 24 SITagliptin 2020-10 Yes 50mg Take 50 mg MD (JANUVIA) 1-30 by mouth Aba o 50 mg 12:08: daily. n tablet 24 omeprazole 2020-10 Yes 40mg Take 40 mg M D (PriLOSEC) 1-30 by mouth Arsenio so 40 MG 12:08: every n capsule 24 morning before breakfast. loperamide 2020-10 Yes Colitis 2mg Take 1 MD (IMODIUM) 2 1-30 capsule (2 An derso mg capsule 00:00: mg) by n 00 mouth every 4 (four) hours as needed for diarrhea. zinc 2020-10 Yes Taste 220mg Take 1 MD sulfate 1-30 problem capsule Aba o (ZINCATE) 00:00: (220 mg) n 220 mg 00 by mouth capsule twice daily. ciprofloxac 2020-10- Yes Colitis 500mg Take 1 MD in HCl 1-30 12-07 tablet Anderso (Cipro) 500 00:00: 05:59 (500 mg) n mg tablet 00 :00 by mouth every 12 (twelve) hours for 6 days. metroNIDAZO 2020-10- Yes Colitis 500mg Take 1 MD LE (FLAGYL) 11-19 tablet Rasenio so 500 mg 00:00: 05:59 (500 mg) n tablet 00 :00 by mouth every 8 (eight) hours for 6 days. omeprazole 2020-10- No 40mg Take 40 mg MD (PriLOSEC) 11-07 by mouth Servando rso 40 MG 13:58: 00:00 every n capsule 57 :00 morning before breakfast. dexamethaso 2020-10 Yes Malignant 4mg Take 1 MD ne 11-07 neoplasm tablet (4 Baa o (DECADRON) 00:00: related mg) by n 4 mg tablet 00 fatigue mouth daily with breakfast. empaglifloz 2020-10- No 10mg Take 10 mg MD in-linaglip 10-31 by mouth And erso tin 08:55: 00:00 daily. n (Glyxambi) 21 :00 10-5 mg tab UNABLE TO 2020-10- No 2.5mg 2.5 mg. MD FIND 10-26 Med Name: Anderso 12:45: 00:00 Ozanzapine n 20 :00 morphine 2020-10 Yes Neoplasm 15mg Take 1 MD (MS CONTIN) 10-26 related tablet (15 Anderso 15 mg ER 00:00: pain mg) by n tablet 00 (acute) mouth (chronic) every 12 (twelve) hours. HYDROmorpho 2020-10- No Cancer 4mg Take 1 M D ne 10-26 associated tablet (4 And erso (DILAUDID) 00:00: 00:00 pain mg) by n 4 mg tablet 00 :00 mouth every 4 (four) hours as needed for moderate pain or severe pain. ceFEPime 2020-10- No Cholangitis 6000mg Infuse MD (MAXIPIME) 10-26 6,000 mg Servando rso IV 00:00: 05:59 intravenou n prescriptio 00 :00 sly infuse n (Home over 24 Use) hours for 6 days. ciprofloxac 2020-10- No Cholangioca 500mg Take 1 MD in HCl 08-21 rcinoma tablet Anderso (Cipro) 500 00:00: 00:00 (500 mg) n mg tablet 00 :00 by mouth twice daily. metroNIDAZO 2020-10- No Cholangioca 500mg Take 1 MD LE (FlagyL) 08-21 rcinoma tablet An derso 500 mg 00:00: 00:00 (500 mg) n tablet 00 :00 by mouth 3 (three) times a day. OLANZapine 2020-10 Yes Insomnia 2.5mg Take 1 MD (ZyPREXA) 013 due to tablet Aba o 2.5 mg 00:00: medical (2.5 mg) n tablet 00 condition by mouth at bedtime. dronabinol 2020-10 Cholangioca 2.5mg Take 1 MD (Marinol) 008-26 rcinoma capsule And erso 2.5 mg 00:00: 00:00 (2.5 mg) n capsule 00 :00 by mouth daily. morphine 2020-10- No Neoplasm 15mg Take 1 MD (MS CONTIN) 08-26 related tablet (15 Anderso 15 mg ER 00:00: 00:00 pain mg) by n tablet 00 :00 (acute) mouth (chronic) every 12 (twelve) hours. amoxicillin 2020-10- No Cholangitis 875mg Take 1 MD -clavulanat 007-26 tablet Arsenio so e 00:00: 04:59 (875 mg) n (AUGMENTIN) 00 :00 by mouth 875 mg-125 every 12 mg per (twelve) tablet hours for 7 doses. metoclopram 2020- Nausea and 10mg Take 1 MD nuzhat 07-07 vomiting tablet (10 Servando rso (REGLAN) 10 00:00: 00:00 mg) by n mg tablet 00 :00 mouth 3 (three) times a day before meals for 30 days. HYDROmorpho 2020- No Cancer 4mg Take 1 M D ne 07-06 associated tablet (4 And erso (DILAUDID) 00:00: 00:00 pain mg) by n 4 mg tablet 00 :00 mouth every 4 (four) hours as needed for moderate pain or severe pain. morphine Cancer 30mg Take 1 MD (MS CONTIN) 07-06 associated tablet (30 Anderso 30 mg 12 hr 00:00: 00:00 pain mg) by n tablet 00 :00 mouth every 12 (twelve) hours. levoFLOXaci 2020- Chills 750mg Take 1 MD n 06-22 tablet Anderso (LEVAQUIN) 00:00: 00:00 (750 mg) n 750 mg 00 :00 by mouth tablet daily for 1 dose. ursodiol primary 300mg Take 300 MD (ACTIGALL) 06-21 biliary mg by Servando rso 300 mg 12:52: 00:00 cholangitis mouth n capsule 44 :00 twice daily. melatonin Cholangioca 10mg Take 1 MD 10 mg 06-21 rcinoma tablet (10 Servando rso tablet 00:00: 04:59 mg) by n 00 :00 mouth nightly as needed (for sleep) for up to 30 days. polyethylen Cholangioca 17g Fill MD e glycol 06-21 rcinoma powder to An derso (GLYCOLAX) 00:00: 04:59 top of n 17 00 :00 white gram/dose section in powder cap which is marked to indicate the correct dose (17g) stir and dissolve in any 8 ounces of beverage (cold, hot or room temperatur e) then drink solution daily as needed for constipati on. mirtazapine Anorexia 7.5mg Take 1 MD (REMERON) 06-21 tablet Anderso 7.5 mg 00:00: 00:00 (7.5 mg) n tablet 00 :00 by mouth at bedtime for 30 days. HYDROmorpho 2020- Cancer 2mg Take 1 M D ne 06-21 associated tablet (2 And erso (DILAUDID) 00:00: 00:00 pain mg) by n 2 mg tablet 00 :00 mouth every 4 (four) hours as needed for moderate pain or severe pain. morphine 2020- No Cancer 15mg Take 1 MD (MS CONTIN) 06-21 associated tablet (15 Anderso 15 mg ER 00:00: 00:00 pain mg) by n tablet 00 :00 mouth every 12 (twelve) hours for 30 days. morphine 2020- No Cancer 15mg Take 1 MD (MS CONTIN) 06-21 associated tablet (15 Anderso 15 mg ER 00:00: 00:00 pain mg) by n tablet 00 :00 mouth every 12 (twelve) hours for 30 days. sucralfate 2020- No Cholangioca 500mg Take 5 mL MD (CARAFATE) 06-21 rcinoma (500 mg) A nderso 100 mg/mL 00:00: 00:00 by mouth 4 n suspension 00 :00 (four) times a day. OLANZapine 2020- No Nausea 2.5mg Take 1 M D (ZyPREXA) 06-15 alone tablet Aba o 2.5 mg 00:00: 00:00 (2.5 mg) n tablet 00 :00 by mouth at bedtime. OLANZapine 2020- No Nausea 2.5mg Take 1 M D (ZyPREXA) 06-13 alone tablet Aba o 2.5 mg 00:00: 00:00 (2.5 mg) n tablet 00 :00 by mouth at bedtime. zinc 2020- No Taste sense 220mg Take 1 MD sulfate 06-10 altered capsule Arsenio so (ZINCATE) 00:00: 00:00 (220 mg) n 220 mg 00 :00 by mouth capsule daily for 5 days. omeprazole 2020- No gastroesoph 40mg Take 40 mg MD (PriLOSEC) 06-09 ageal by mouth And erso 40 MG 15:06: 00:00 reflux every n capsule 09 :00 disease morning before breakfast. lactulose 2020- No 15mL Take 15 mL M D (CHRONULAC) 06-09 by mouth 2 A nderso 10 gram/15 14:08: 00:00 (two) n mL solution 26 :00 times a day as needed for constipati on. lactulose 2021-0 Yes Slow 10g Take 15 mL MD (CHRONULAC) 820 transit (10 g) by Anderso 10 gram/15 00:00: constipatio mouth 2 n mL solution 00 n (two) times a day as needed for constipati on (2nd choice for constipati on). 2nd choice for constipati on senna 2020- No Obstruction 2{tbl} Take 2 MD (SENOKOT) 06-09 11-30 of biliary tablets by Anderso 8.6 mg 00:00: 00:00 tree mouth n tablet 00 :00 twice daily. First choice for constipati on ondansetron 2020- No Nausea 8mg Dissolve 1 MD (Zofran 06-09 11-15 tablet (8 Aba o ODT) 8 mg 00:00: 00:00 mg) on the n disintegrat 00 :00 tongue ing tablet every 8 (eight) hours as needed for nausea or vomiting (first choice for nausea and vomiting). pantoprazol 2020- No Obstruction 40mg Take 1 MD e 06-09 of biliary tablet (40 An derso (PROTONIX) 00:00: 00:00 tree mg) by n 40 mg EC 00 :00 mouth tablet daily with breakfast. metoclopram 2020- No Nausea 5mg Take 1 M D nuzhat 06-09 alone tablet (5 Anderso (REGLAN) 5 00:00: 00:00 mg) by n mg tablet 00 :00 mouth 3 (three) times a day as needed for nausea and vomiting (2nd choice for nausea/vom iting). Take 30 mins before meals as needed mirtazapine 2020- No Failure to 7.5mg Take 1 MD (REMERON) 06-09 thrive tablet Arsenio so 7.5 mg 00:00: 00:00 (7.5 mg) n tablet 00 :00 by mouth daily. amoxicillin 2020- No 500mg Take 500 MD (AMOXIL) 06-05 08-16 mg by Anderso 500 mg 08:56: 00:00 mouth 3 n capsule 25 :00 (three) times a day. megestrol 2020- No Appetite 625mg Take 5 mL MD (Megace ES) 06-05 symptom (625 mg) Anderso 625 mg/5 mL 00:00: 00:00 by mouth n (125 mg/mL) 00 :00 daily. suspension lidocaine-p Yes Primary As needed MD rilocaine 8-13 adenocarcin for the Anderso (EMLA) 00:00: linda of port n 2.5-2.5% 00 common bile cream duct lidocaine-p 2020- No Primary As needed MD rilocaine 8-11 08-13 adenocarcin for the Anderso (EMLA) 00:00: 00:00 linda of [place] n 2.5-2.5% 00 :00 common bile cream duct linaGLIPtin 2020- No 1{tbl} Take 1 M D (Tradjenta) 05-25 tablet by An derso 5 mg tab 00:00: 00:00 mouth n 00 :00 daily as needed. pantoprazol 2020- No Obstruction 40mg Take 1 MD e 05-24 of biliary tablet (40 An derso (PROTONIX) 00:00: 00:00 tree mg) by n 40 mg EC 00 :00 mouth tablet daily. HYDROcodone 2020- No pain 1{tbl} Take 1 M D -acetaminop 05-23 tablet by An derso hen (NORCO) 15:57: 00:00 mouth n 7.5 mg-325 06 :00 every 6 mg per (six) tablet hours as needed for moderate pain. metFORMIN 2020- No type 2 500mg Take 500 MD (GLUCOPHAGE 05-23 diabetes mg by An derso ) 500 mg 15:57: 00:00 mellitus mouth n tablet 06 :00 daily with breakfast. senna-docus 2020- No constipatio 1{tbl} Take 1 MD ate 05-23- n tablet by Anddorothy (sennosides 15:57: 00:00 mouth n -docusate 06 :00 twice sodium) 8.6 daily. mg-50 mg tablet docusate 2020- No constipatio 100mg Take 100 MD sodium 05-23 n mg by Meir (COLACE) 15:57: 00:00 mouth n 100 mg 06 :00 daily. capsule aspirin 81 2020- No 81mg Take 81 mg MD mg EC 05-23 by mouth Anderso tablet 14:45: 00:00 daily. n 17 :00 simethicone Yes Obstruction 80mg Chew 1 MD (MYLICON) 05-23 of biliary tablet (80 Anderso 80 mg 00:00: tree mg) every n chewable 00 4 (four) tablet hours as needed for flatulence . aspirin 81 2020- No Obstruction 81mg Take 1 MD mg EC 05-23 of biliary tablet (81 A nderso tablet 00:00: 00:00 tree mg) by n 00 :00 mouth daily. senna 2020- No Obstruction 2{tbl} Take 2 MD (SENOKOT) 05-23 of biliary tablets by Anderso 8.6 mg 00:00: 00:00 tree mouth n tablet 00 :00 twice daily. amoxicillin 2020- No Obstruction 875mg Take 1 MD -clavulanat 05-23 of biliary tablet Anderso e 00:00: 00:00 tree (875 mg) n (Augmentin) 00 :00 by mouth 875 mg-125 twice mg per daily. tablet metroNIDAZO 2020- No Obstruction 500mg Take 1 MD LE (FlagyL) 05-23 of biliary tablet Anderso 500 mg 00:00: 00:00 tree (500 mg) n tablet 00 :00 by mouth 3 (three) times a day. OLANZapine 2020- No Nausea 2.5mg Take 1 M D (ZyPREXA) 05-17 alone tablet Aba o 2.5 mg 00:00: 00:00 (2.5 mg) n tablet 00 :00 by mouth at bedtime. metoclopram 2020- No Nausea 5mg Take 1 M D nuzhat 05-17 alone tablet (5 Anderso (REGLAN) 5 00:00: 00:00 mg) by n mg tablet 00 :00 mouth 3 (three) times a day before meals. OLANZapine 2020- No Nausea 2.5mg Take 1 M D (ZyPREXA) 05-04 tablet Anderso 2.5 mg 00:00: 00:00 (2.5 mg) n tablet 00 :00 by mouth every 6 (six) hours as needed (nausea/sl eep). HYDROcodone 2020- No Cancer 1{tbl} Take 1 MD -acetaminop 05-04 associated tablet by Anddorothy hen (NORCO) 00:00: 00:00 pain mouth n 10 mg-325 00 :00 every 6 mg per (six) tablet hours as needed for moderate pain. ondansetron 2020- No Nausea 8mg Dissolve 1 MD (Zofran 05-04-20 tablet (8 Aba o ODT) 8 mg 00:00: 00:00 mg) on the n disintegrat 00 :00 tongue ing tablet every 8 (eight) hours as needed for nausea or vomiting. aluminum-ma 2020- No Nausea 15mL Take 15 mL MD gnesium 05-04-20 by mouth Anderso hydroxide-s 00:00: 00:00 every 4 n imethicone 00 :00 (four) (MAALOX hours as PLUS) 200 needed for mg-200 indigestio mg-20 mg/5 n or mL heartburn. suspension vitamin C Yes 1000mg Take 1,000 Univers with vicky 7-09 mg by ity of hips 1,000 21:18: mouth [place] mg tablet 11 daily. Medical Branch aspirin 81 Yes 81mg Take 81 mg U nivers mg EC 7-09 by mouth ity of tablet 21:18: daily. [place] [id number] Medical Branch cholecalcif Yes 1000U Take 1,000 Univers macho, 7-09 Units by ity of vitamin D3, 21:18: mouth [place] 1,000 unit 11 daily. Medical tablet Branch omeprazole Yes 40mg Take 40 mg U nivers 40 mg 7-09 by mouth ity of capsule 21:18: daily. [address] Branch multivitami Yes 1{tbl} Take 1 Un tiny n with 7-09 tablet by ity of minerals 21:18: mouth [place] tablet 11 daily. Medical Branch pravastatin Yes 40mg Take 40 mg Univers 40 mg 7-09 by mouth ity of tablet 21:18: daily. [place] 11 Medical Branch docusate Yes 100mg Take 100 Univ ers (STOOL 7-09 mg by ity of SOFTENER) 21:18: mouth [place] 100 mg 11 daily. Medical capsule Branch Cyanocobala Yes 2500ug Place Uni vers min-Cobamam 7-09 2,500 mcg ity of nuzhat 21:18: under the [place] 5,000-100 11 tongue. Medical mcg Lozg Branch magnesium Yes 400mg Take 400 Uni vers gluconate 7-09 mg by ity of 200 mg 21:18: mouth [place] tablet 11 daily. Medical Branch Psyllium Yes 1U Take 1 Univers Husk-Sucros 7-09 Units by ity of e 3.4 21:18: mouth. [place] gram/7 gram 11 Medical Powd Branch melatonin 3 Yes [id number] 6mg Take 2 U nivers mg tablet 7-09 tablets by ity of 00:00: mouth at [place] 00 bedtime. Medical Branch simethicone Yes [id number] 80mg Take 1 U nivers 80 mg 7-09 tablet by ity of chewable 00:00: mouth [place] tablet 00 after Medical meals and Branch at bedtime. ondansetron Yes [id number] 8mg Take 2 U nivers 4 mg tablet 7-09 tablets by it y of 00:00: mouth [place] 00 every 8 Medical (eight) Branch hours as needed for Nausea and Vomiting (N/V). lactulose Yes [id number] 15mL Take 15 mL Univers 10 gram/15 6-13 by mouth 2 ity of mL solution 00:00: (two) [place] 00 times Medical daily as Branch needed for Constipati on. albuterol Yes 2 puffs Unive rs 90 4-28 Every 4 ity of mcg/actuati 00:00: To 6 Hrs [place] on inhaler 00 s prn Medical Sob, cough Branch or wheeze Fluticasone 2019-10- No 1{puff} Inhale 1 Univers Propionate 1-11 11-12 Puff. ity of (FLOVENT 00:00: 05:59 [place] DISKUS) 100 00 :00 Medical mcg/actuati Branch on inhalation disk metFORMIN Yes 500mg Take 500 Uni vers 500 mg 9-17 mg by ity of tablet 00:00: mouth [place] [id number] daily. [facility] Immunizations Ordered Filled Immunization Date Status Comments Sour e Immunization Name Name Influenza, 2020-10-08 Completed MD Tavarez Unspecified 00:00:00 Influenza, 2020-10-08 Completed MD Tavarez Unspecified 00:00:00 Influenza Virus 2020-10-08 Completed Universit y of Vaccine 00:00:00 [facility] Influenza, 2019-09-24 Completed MD Tavarez Unspecified 00:00:00 Influenza Virus 2019-09-24 Completed Universit y of Vaccine 00:00:00 [facility] Influenza, 2018-08-27 Completed MD Tavarez Unspecified 00:00:00 Influenza Virus 2018-08-27 Completed Universit y of Vaccine 00:00:00 [facility] Tdap 2015-05-20 Completed MD Tavarez 00:00:00 TDAP 2015-05-20 Completed [facility] 00:00:00 [facility] Vital Signs Vital Name Observation Time Observation Value Comments Source Body weight 2021-09-21 18:53:00 45.7 kg MD Arsenio arciniega BMI 2021-09-21 18:53:00 19.68 kg/m2 MD Arsenio arciniega Systolic blood pressure 2021-09-21 18:50:39 110 mm[Hg] MD Tavarez Diastolic blood pressure 2021-09-21 18:50:39 71 mm[Hg] MD Tavarez Heart rate 2021-09-21 18:50:39 88 /min MD Arsenio arciniega Body temperature 2021-09-21 18:50:39 37.11 Stephanie MD Loly jay Respiratory rate 2021-09-21 18:50:39 18 /min MD Loly jay Oxygen saturation in 2021-09-21 18:50:39 99 /min MD Tavarez Arterial blood by Pulse oximetry Body height 2021-09-17 23:34:00 152.4 cm MD Arsenio arciniega Procedures Procedure Date / Time Performing Source Performed Clinician XR ANKLE 3 OR MORE VIEWS RIGHT 2021-09-21 Christopher Barnett MD 16:57:05 XR HEEL 2 VIEWS MIN RIGHT 2021-09-21 Christopher Barnett MD 16:56:46 POC GLUCOSE SCREEN 2021-09-19 MD Corby Bains 14:53:00 Quan Farias COMPLETE BLOOD COUNT W/ 2021-09-19 Cem Zuluaga MD Servando rson DIFFERENTIAL 10:04:00 COMPREHENSIVE METABOLIC PANEL 2021-09-19 Cem Zuluaga 10:04:00 MAGNESIUM LEVEL 2021-09-19 Cem Zuluaga MD 10:04:00 PHOSPHORUS LEVEL 2021-09-19 Cem Zuluaga MD 10:04:00 Results CBC 2021-09-19 Cem Zuluaga MD 10:04:00 MANUAL DIFFERENTIAL 2021-09-19 Cem Zuluaga MD 10:04:00 GLUCOSE LEVEL 2021-09-19 Cem Zuluaga MD 10:04:00 BLOOD UREA NITROGEN 2021-09-19 Cem Zuluaga MD 10:04:00 ELECTROLYTE PANEL 2021-09-19 Cem Zuluaga MD 10:04:00 SERUM CREATININE 2021-09-19 Cem Zuluaga MD 10:04:00 .GLOMERULAR FILTRATION RATE 2021-09-19 Cem Zuluaga MD 10:04:00 CALCIUM LEVEL TOTAL 2021-09-19 Cem Zuluaga MD 10:04:00 ALBUMIN LEVEL 2021-09-19 Cem Zuluaga MD 10:04:00 ALKALINE PHOSPHATASE 2021-09-19 Cem Zuluaga MDo n 10:04:00 ALANINE AMINOTRANSFERASE 2021-09-19 Cem Zuluaga MD And erson 10:04:00 ASPARTATE AMINOTRANSFERASE 2021-09-19 Cem Zuluaga MD nderson 10:04:00 TOTAL PROTEIN 2021-09-19 Cem Zuluaga MD 10:04:00 FRACTIONATED BILIRUBIN 2021-09-19 Cem Zuluaga MD Arsenio son 10:04:00 POC GLUCOSE SCREEN 2021-09-19 MD Corby Bains 04:00:00 Quan Farias POC GLUCOSE SCREEN 2021-09-18 MD Corby Bains 23:46:00 Quan Farias POC GLUCOSE SCREEN 2021-09-18 MD Corby Bains 17:51:00 Quan Farias POC GLUCOSE SCREEN 2021-09-18 MD Corby Bains 14:04:00 Quan Farias COMPLETE BLOOD COUNT W/ 2021-09-18 Cem Zuluaga MD Servando rson DIFFERENTIAL 10:13:00 COMPREHENSIVE METABOLIC PANEL 2021-09-18 Cem Zuluaga 10:13:00 MAGNESIUM LEVEL 2021-09-18 Cem Zuluaga MD 10:13:00 PHOSPHORUS LEVEL 2021-09-18 Cem Zuluaga MD 10:13:00 IRON LEVEL 2021-09-18 Cem Zuluaga MD 10:13:00 TRANSFERRIN 2021-09-18 Cem Zuluaga MD 10:13:00 FERRITIN LVL 2021-09-18 Cem Zuluaga MD 10:13:00 VITAMIN B12 LEVEL 2021-09-18 Cem Zuluaga MD 10:13:00 Results CBC 2021-09-18 Cem Zuluaga MD 10:13:00 MANUAL DIFFERENTIAL 2021-09-18 Cem Zuluaga MD 10:13:00 GLUCOSE LEVEL 2021-09-18 Cem Zuluaga MD 10:13:00 BLOOD UREA NITROGEN 2021-09-18 Cem Zuluaga MD 10:13:00 ELECTROLYTE PANEL 2021-09-18 Cem Zuluaga MD 10:13:00 SERUM CREATININE 2021-09-18 Cem Zuluaga MD 10:13:00 .GLOMERULAR FILTRATION RATE 2021-09-18 Cem Zuluaga MD 10:13:00 CALCIUM LEVEL TOTAL 2021-09-18 Cem Zuluaga MD 10:13:00 ALBUMIN LEVEL 2021-09-18 Cem Zuluaga MD 10:13:00 ALKALINE PHOSPHATASE 2021-09-18 Cem Zuluaga MD Anderso n 10:13:00 ALANINE AMINOTRANSFERASE 2021-09-18 Cem Zuluaga MD And erson 10:13:00 ASPARTATE AMINOTRANSFERASE 2021-09-18 Cem Zuluaga MD nderson 10:13:00 TOTAL PROTEIN 2021-09-18 Cem Zuluaga MD 10:13:00 FRACTIONATED BILIRUBIN 2021-09-18 Cem Zuluaga MD Arsenio son 10:13:00 URINALYSIS WITH MICROSCOPIC IF 2021-09-18 Josefa Villa MD INDICATED 05:07:00 URINALYSIS MICROSCOPIC 2021-09-18 Elena Strickland MD on 05:07:00 URINE CULTURE 2021-09-18 Carlitos Villa MD 05:07:00 GASTROINTESTINAL MULTIPLEX PANEL 2021-09-18 Moon Villa MD 05:07:00 C DIFFICILE DNA ASSAY 2021-09-18 Carlitos Villa MD And erson 05:07:00 POC GLUCOSE SCREEN 2021-09-18 Cem Zuluaga MD 04:44:00 POC GLUCOSE SCREEN 2021-09-18 Cem Zuluaga MD 00:14:00 EKG, 12-LEAD (PORTABLE) 2021-09-18 Thais Ross MD And erson 00:00:00 COVID-19 (SARS-COV-2) 2021-09-17 Carlitos Villa MD And erson ASYMPTOMATIC-LT 22:18:00 CT ABDOMEN PELVIS W CONTRAST 2021-09-17 Carlitos Villa MD 19:07:00 POC GLUCOSE SCREEN 2021-09-17 Carlitos Villa MD Aba on 17:57:00 POC CHEM 8 2021-09-17 Carlitos Villa MD 17:42:00 COMPLETE BLOOD COUNT W/ 2021-09-17 Elena Strickland MD Arsenio son DIFFERENTIAL 17:40:00 AMYLASE LEVEL 2021-09-17 Elena Strickland MD 17:40:00 LIPASE LEVEL 2021-09-17 Elena Strickland MD 17:40:00 LACTIC ACID, VENOUS 2021-09-17 Elena Strickland MD 17:40:00 MAGNESIUM LEVEL 2021-09-17 Elena Strickland MD 17:40:00 PHOSPHORUS LEVEL 2021-09-17 Elena Strickland MD 17:40:00 CALCIUM LEVEL TOTAL 2021-09-17 Elena Strickland MD 17:40:00 GLUCOSE, RANDOM 2021-09-17 Elena Strickland MD 17:40:00 BLOOD UREA NITROGEN 2021-09-17 Elena Strickland MD 17:40:00 SERUM CREATININE 2021-09-17 Elena Strickland MD 17:40:00 ALBUMIN LEVEL 2021-09-17 Elena Strickland MD 17:40:00 CHLORIDE LEVEL 2021-09-17 Elena Strickland MD 17:40:00 CARBON DIOXIDE LEVEL 2021-09-17 Elena Strickland MD 17:40:00 SODIUM LEVEL 2021-09-17 Em, Elena Tavarez 17:40:00 POTASSIUM LEVEL 2021-09-17 Elena Strickland MD 17:40:00 HEPATIC FUNCTION PANEL 2021-09-17 Elena Strickland MD on 17:40:00 Results CBC 2021-09-17 Elena Strickland MD 17:40:00 MANUAL DIFFERENTIAL 2021-09-17 Elena Strickland MD 17:40:00 SERUM CREATININE 2021-09-17 Elena Strickland MD 17:40:00 .GLOMERULAR FILTRATION RATE 2021-09-17 Elena Strickland MD nderson 17:40:00 ALKALINE PHOSPHATASE 2021-09-17 Elena Strickland MD 17:40:00 ALANINE AMINOTRANSFERASE 2021-09-17 Elena Strickland MD rson 17:40:00 ASPARTATE AMINOTRANSFERASE 2021-09-17 Elena Strickland MD 17:40:00 TOTAL PROTEIN 2021-09-17 Elena Strickland MD 17:40:00 FRACTIONATED BILIRUBIN 2021-09-17 Elena Strickland MD on 17:40:00 ANION GAP 2021-09-17 Elena Strickland MD 17:40:00 COMPREHENSIVE METABOLIC PANEL 2021-09-13 Dahlia Moncada MD 12:45:00 CANCER ANTIGEN 19-9 2021-09-13 Dahlia Moncada MD 12:45:00 COMPLETE BLOOD COUNT W/ 2021-09-13 Dahlia Moncada MD son DIFFERENTIAL 12:45:00 GLUCOSE LEVEL 2021-09-13 Dahlia Moncada MD 12:45:00 BLOOD UREA NITROGEN 2021-09-13 Dahlia Moncada MD 12:45:00 ELECTROLYTE PANEL 2021-09-13 Dahlia Moncada MD 12:45:00 SERUM CREATININE 2021-09-13 Dahlia Moncada MD 12:45:00 .GLOMERULAR FILTRATION RATE 2021-09-13 Dahlia Moncada MD nderson 12:45:00 CALCIUM LEVEL TOTAL 2021-09-13 Dahlia Moncada MD 12:45:00 ALBUMIN LEVEL 2021-09-13 Dahlia Moncada MD 12:45:00 ALKALINE PHOSPHATASE 2021-09-13 Dahlia Moncada MD 12:45:00 ALANINE AMINOTRANSFERASE 2021-09-13 Dahlia Moncada MD Servando rson 12:45:00 ASPARTATE AMINOTRANSFERASE 2021-09-13 Dahlia Moncada MD derson 12:45:00 TOTAL PROTEIN 2021-09-13 Dahlia Moncada MD 12:45:00 FRACTIONATED BILIRUBIN 2021-09-13 Dahlia Moncada MD on 12:45:00 Results CBC 2021-09-13 Dahlia Moncada MD 12:45:00 MANUAL DIFFERENTIAL 2021-09-13 Dahlia Moncada MD 12:45:00 COMPREHENSIVE METABOLIC PANEL 2021-08-31 Christopher Barnett MD 14:07:00 CANCER ANTIGEN 19-9 2021-08-31 Christopher Barnett MD Arsenio son 14:07:00 COMPLETE BLOOD COUNT W/ 2021-08-31 Christopher Barnett MD nderson DIFFERENTIAL 14:07:00 GLUCOSE LEVEL 2021-08-31 Christopher Barnett MD 14:07:00 BLOOD UREA NITROGEN 2021-08-31 Christopher Barnett MD Arsenio son 14:07:00 ELECTROLYTE PANEL 2021-08-31 Christopher Barnett MD n 14:07:00 SERUM CREATININE 2021-08-31 Christopher Barnett MD 14:07:00 .GLOMERULAR FILTRATION RATE 2021-08-31 Christopher Barnett MD 14:07:00 CALCIUM LEVEL TOTAL 2021-08-31 Christopher Barnett MD Arsenio son 14:07:00 ALBUMIN LEVEL 2021-08-31 Christopher Barnett MD 14:07:00 ALKALINE PHOSPHATASE 2021-08-31 Christopher Barnett MD Servando rson 14:07:00 ALANINE AMINOTRANSFERASE 2021-08-31 Christopher Barnett MD 14:07:00 ASPARTATE AMINOTRANSFERASE 2021-08-31 Christopher Barnett 14:07:00 TOTAL PROTEIN 2021-08-31 Christopher Barnett MD 14:07:00 FRACTIONATED BILIRUBIN 2021-08-31 Christopher Barnett MD 14:07:00 Results CBC 2021-08-31 Christopher Barnett MD 14:07:00 MANUAL DIFFERENTIAL 2021-08-31 Christopher Barnett MD Arsenio son 14:07:00 FRACTIONATED BILIRUBIN 2021-08-26 Makayla Garner MD Arsenio son 08:42:00 Maura Results CBC 2021-08-26 Makayla Garner MD 08:42:00 Maura MANUAL DIFFERENTIAL 2021-08-26 Makayla Garner MD 08:42:00 Maura BASIC METABOLIC PANEL, CALCIUM 2021-08-26 Makayla Garner MD TOTAL 08:42:00 Maura COMPLETE BLOOD COUNT W/ 2021-08-26 Makayla Garner MD Servando rson DIFFERENTIAL 08:42:00 Maura HEPATIC FUNCTION PANEL 2021-08-26 Makayla Garner MD Arsenio son 08:42:00 Maura GLUCOSE LEVEL 2021-08-26 Makayla Garner MD 08:42:00 Maura BLOOD UREA NITROGEN 2021-08-26 Makayla Garner MD 08:42:00 Maura ELECTROLYTE PANEL 2021-08-26 Makayla Garner MD 08:42:00 Maura SERUM CREATININE 2021-08-26 Makayla Garner MD 08:42:00 Maura .GLOMERULAR FILTRATION RATE 2021-08-26 Makayla Garner MD 08:42:00 Maura CALCIUM LEVEL TOTAL 2021-08-26 Makayla Garner MD 08:42:00 Maura ALBUMIN LEVEL 2021-08-26 Makayla Garner MD 08:42:00 Maura ALKALINE PHOSPHATASE 2021-08-26 Makayla Garner MD Anderso n 08:42:00 Maura ALANINE AMINOTRANSFERASE 2021-08-26 Makayla Garner MD And erson 08:42:00 Maura ASPARTATE AMINOTRANSFERASE 2021-08-26 Makayla Garner MD A nderson 08:42:00 Maura TOTAL PROTEIN 2021-08-26 Patsy, Makayla Tavarez 08:42:00 Maura XR ABDOMEN 1 VW PORTABLE 2021-08-25 Marla Browne MD Servando rson 08:23:34 BASIC METABOLIC PANEL, CALCIUM 2021-08-25 Patsy, Makayla Tavarez TOTAL 07:35:00 Maura COMPLETE BLOOD COUNT W/ 2021-08-25 Makayla Garner MD Servando rson DIFFERENTIAL 07:35:00 Maura HEPATIC FUNCTION PANEL 2021-08-25 Makayla Garner MD Arsenio son 07:35:00 Maura GLUCOSE LEVEL 2021-08-25 Patsy, Makayla NICOLAS Corby 07:35:00 Maura BLOOD UREA NITROGEN 2021-08-25 Patsy, Makayla Tavarez 07:35:00 Maura ELECTROLYTE PANEL 2021-08-25 Patsy, Makayla Tavarez 07:35:00 Maura SERUM CREATININE 2021-08-25 PatsyMakayla MD 07:35:00 Maura .GLOMERULAR FILTRATION RATE 2021-08-25 Makayla Garner MD 07:35:00 Maura CALCIUM LEVEL TOTAL 2021-08-25 PatsyMakayla lozano MD 07:35:00 Maura ALBUMIN LEVEL 2021-08-25 Patsy, Makayla Tavarez 07:35:00 Maura ALKALINE PHOSPHATASE 2021-08-25 Makayla Garner MD Anderso n 07:35:00 Maura ALANINE AMINOTRANSFERASE 2021-08-25 Makayla Garner MD And erson 07:35:00 Maura ASPARTATE AMINOTRANSFERASE 2021-08-25 Makayla Garner MD nderson 07:35:00 Maura TOTAL PROTEIN 2021-08-25 PatsyMakayla lozano MD 07:35:00 Maura FRACTIONATED BILIRUBIN 2021-08-25 Makayla Garner MD Arsenio son 07:35:00 Maura Results CBC 2021-08-25 Makayla Garner MD 07:35:00 Maura MANUAL DIFFERENTIAL 2021-08-25 Makayla Garner MD 07:35:00 Maura MAGNESIUM LEVEL 2021-08-25 Marla Browne MD 07:35:00 PHOSPHORUS LEVEL 2021-08-25 Marla Browne MD 07:35:00 CARDIAC PANEL 2021-08-25 Marla Browne MD 07:35:00 EKG, 12-LEAD (PORTABLE) 2021-08-25 Marla Browne MD Arsenio son 00:00:00 BASIC METABOLIC PANEL, CALCIUM 2021-08-24 Makayla Garner MD TOTAL 07:55:00 Maura COMPLETE BLOOD COUNT W/ 2021-08-24 Makayla Garner MD Servando rson DIFFERENTIAL 07:55:00 Maura HEPATIC FUNCTION PANEL 2021-08-24 Makayla Garner MD Arsenio son 07:55:00 Maura GLUCOSE LEVEL 2021-08-24 Makayla Garner MD 07:55:00 Maura BLOOD UREA NITROGEN 2021-08-24 Makayla Garner MD 07:55:00 Maura ELECTROLYTE PANEL 2021-08-24 Makayla Garner MD 07:55:00 Maura SERUM CREATININE 2021-08-24 Makayla Garner MD 07:55:00 Maura .GLOMERULAR FILTRATION RATE 2021-08-24 Makayla Garner MD 07:55:00 Maura CALCIUM LEVEL TOTAL 2021-08-24 Makayla Garner MD 07:55:00 Maura ALBUMIN LEVEL 2021-08-24 Makayla Garner MD 07:55:00 Maura ALKALINE PHOSPHATASE 2021-08-24 Makayla Garner MD Anderso n 07:55:00 Maura ALANINE AMINOTRANSFERASE 2021-08-24 Makayla Garner MD And erson 07:55:00 Maura ASPARTATE AMINOTRANSFERASE 2021-08-24 Makayla Garner MD nderson 07:55:00 Maura TOTAL PROTEIN 2021-08-24 Makayla Garner MD 07:55:00 Maura FRACTIONATED BILIRUBIN 2021-08-24 Makayla Garner MD Arsenio son 07:55:00 Maura Results CBC 2021-08-24 Makayla Garner MD 07:55:00 Maura MANUAL DIFFERENTIAL 2021-08-24 Makayla Garner MD 07:55:00 Maura POC GLUCOSE SCREEN 2021-08-23 Cecy Isaacs MD Andluizo n 22:33:00 US CHEST 2021-08-23 Cecy Isaacs MD 21:35:00 POC GLUCOSE SCREEN 2021-08-23 Cecy Isaacs MD Anderso n 16:28:00 POC GLUCOSE SCREEN 2021-08-23 Conrad Phillips, Cecy NICOLAS Andluizo n 12:23:00 BASIC METABOLIC PANEL, CALCIUM 2021-08-23 Makayla Garner MD TOTAL 09:18:00 Maura COMPLETE BLOOD COUNT W/ 2021-08-23 Makayla Garner MD Servando rson DIFFERENTIAL 09:18:00 Maura HEPATIC FUNCTION PANEL 2021-08-23 Makayla Garner MD Arsenio son 09:18:00 Maura GLUCOSE LEVEL 2021-08-23 Makayla Garner MD 09:18:00 Maura BLOOD UREA NITROGEN 2021-08-23 Makayla Garner MD 09:18:00 Maura ELECTROLYTE PANEL 2021-08-23 Makayla Garner MD 09:18:00 Maura SERUM CREATININE 2021-08-23 Makayla Garner MD 09:18:00 Maura .GLOMERULAR FILTRATION RATE 2021-08-23 Makayla Garner MD 09:18:00 Maura CALCIUM LEVEL TOTAL 2021-08-23 Makayla Garner MD 09:18:00 Maura ALBUMIN LEVEL 2021-08-23 Makayla Garner MD 09:18:00 Maura ALKALINE PHOSPHATASE 2021-08-23 Makayla Garner MD Anderso n 09:18:00 Maura ALANINE AMINOTRANSFERASE 2021-08-23 Makayla Garner MD And erson 09:18:00 Maura ASPARTATE AMINOTRANSFERASE 2021-08-23 Maakyla Garner MD nderson 09:18:00 Maura TOTAL PROTEIN 2021-08-23 Makayla Garner MD 09:18:00 Maura FRACTIONATED BILIRUBIN 2021-08-23 Makayla Garner MD Arsenio son 09:18:00 Maura Results CBC 2021-08-23 Makayla Garner MD 09:18:00 Maura MANUAL DIFFERENTIAL 2021-08-23 Makayla Garner MD 09:18:00 Maura POC GLUCOSE SCREEN 2021-08-23 Cecy Isaacs MD n 04:58:00 EKG, 12-LEAD (PORTABLE) 2021-08-23 Cecy Isaacs MD 00:00:00 POC GLUCOSE SCREEN 2021-08-22 Cecy Isaacs MD 23:32:00 POC GLUCOSE SCREEN 2021-08-22 eCcy Isaacs MD 18:31:00 IR EXCHANGE OF BILIARY DRAINAGE 2021-08-22 Keiry Hickey MD CATHETER 16:03:50 BASIC METABOLIC PANEL, CALCIUM 2021-08-22 Makayla Garner MD TOTAL 12:40:00 Maura COMPLETE BLOOD COUNT W/ 2021-08-22 Makayla Garner MD Servando rson DIFFERENTIAL 12:40:00 Maura HEPATIC FUNCTION PANEL 2021-08-22 Makayla Garner MD Arsenio son 12:40:00 Maura GLUCOSE LEVEL 2021-08-22 Makayla Garner MD 12:40:00 Maura BLOOD UREA NITROGEN 2021-08-22 Makayla Garner MD 12:40:00 Maura ELECTROLYTE PANEL 2021-08-22 Makayla Garner MD 12:40:00 Maura SERUM CREATININE 2021-08-22 Makayla Garner MD 12:40:00 Maura .GLOMERULAR FILTRATION RATE 2021-08-22 Makayla Garner MD 12:40:00 Maura CALCIUM LEVEL TOTAL 2021-08-22 Makayla Garner MD 12:40:00 Maura ALBUMIN LEVEL 2021-08-22 Makayla Garner MD 12:40:00 Maura ALKALINE PHOSPHATASE 2021-08-22 Makayla Garner MD Anderso n 12:40:00 Maura ALANINE AMINOTRANSFERASE 2021-08-22 Makayla Garner MD And erson 12:40:00 Maura ASPARTATE AMINOTRANSFERASE 2021-08-22 Makayla Garner MD nderson 12:40:00 Maura TOTAL PROTEIN 2021-08-22 Makayla Garner MD 12:40:00 Maura FRACTIONATED BILIRUBIN 2021-08-22 Makayla Garner MD Arsenio son 12:40:00 Maura Results CBC 2021-08-22 Makayla Garner MD 12:40:00 Maura MANUAL DIFFERENTIAL 2021-08-22 Makayla Garner MD 12:40:00 Maura POC GLUCOSE SCREEN 2021-08-22 Cecy Isaacs MD 12:40:00 POC GLUCOSE SCREEN 2021-08-22 Cecy Isaacs MD 04:48:00 XR CHEST 1 VW PORTABLE 2021-08-22 Nivia Bhat MD on 04:12:34 POC GLUCOSE SCREEN 2021-08-21 Cecy Isaacs MD 23:41:00 BLOODCULTURE 2021-08-21 Cecy Isaacs MD 19:20:00 BLOODCULTURE 2021-08-21 Cecy Isaacs MD 18:49:00 POC GLUCOSE SCREEN 2021-08-21 Cecy Isaacs MD 17:04:00 ECHOCARDIOGRAM 2D COMPLETE 2021-08-21 Makayla Garner MD nderson 16:23:08 Maura POC GLUCOSE SCREEN 2021-08-21 Cecy Isaacs MD 13:32:00 POC GLUCOSE SCREEN 2021-08-21 Cecy Isaacs MD n 12:14:00 MAGNESIUM LEVEL 2021-08-21 Andrew Hickey MD 08:54:00 PHOSPHORUS LEVEL 2021-08-21 Andrew Hickey MD 08:54:00 BASIC METABOLIC PANEL, CALCIUM 2021-08-21 Makayla Garner MD TOTAL 08:54:00 Maura COMPLETE BLOOD COUNT W/ 2021-08-21 Makayla Garner MD Servando rson DIFFERENTIAL 08:54:00 Maura HEPATIC FUNCTION PANEL 2021-08-21 Makayla Garner MD Arsenio son 08:54:00 Maura GLUCOSE LEVEL 2021-08-21 Patsy, Makayla Tavarez 08:54:00 Maura BLOOD UREA NITROGEN 2021-08-21 Makayla Garner MD 08:54:00 Maura ELECTROLYTE PANEL 2021-08-21 Makayla Garner MD 08:54:00 Maura SERUM CREATININE 2021-08-21 Makayla Garner MD 08:54:00 Maura .GLOMERULAR FILTRATION RATE 2021-08-21 Makayla Garner MD 08:54:00 Maura CALCIUM LEVEL TOTAL 2021-08-21 PatsyMakayla lozano MD 08:54:00 Maura ALBUMIN LEVEL 2021-08-21 Makayla Garner MD 08:54:00 Maura ALKALINE PHOSPHATASE 2021-08-21 PatsyMakayla lozano MD Anderso n 08:54:00 Maura ALANINE AMINOTRANSFERASE 2021-08-21 Makayla Garner MD And erson 08:54:00 Maura ASPARTATE AMINOTRANSFERASE 2021-08-21 Makayla Garner MD nderson 08:54:00 Maura TOTAL PROTEIN 2021-08-21 Makayla Garner MD 08:54:00 Maura FRACTIONATED BILIRUBIN 2021-08-21 Makayla Garner MD Arsenio son 08:54:00 Maura Results CBC 2021-08-21 PatsyMakayla lozano MD 08:54:00 Maura MANUAL DIFFERENTIAL 2021-08-21 Makayla Garner MD 08:54:00 Maura VERIFY CATHETER TIP PLACEMENT 2021-08-21 Nivia Bhat MD 04:23:25 POC GLUCOSE SCREEN 2021-08-21 Makayla Garner MD 04:04:00 Maura POC GLUCOSE SCREEN 2021-08-20 Makayla Garner MD 22:40:00 Maura POC GLUCOSE SCREEN 2021-08-20 Makayla Garner MD 16:59:00 Maura COMPREHENSIVE METABOLIC PANEL 2021-08-20 Makayla Garner 14:47:00 Maura GLUCOSE LEVEL 2021-08-20 Makayla Garner MD 14:47:00 Maura BLOOD UREA NITROGEN 2021-08-20 Makayla Garner MD 14:47:00 Maura ELECTROLYTE PANEL 2021-08-20 PatsyMakayla lozano MD 14:47:00 Maura SERUM CREATININE 2021-08-20 Makayla Garner MD 14:47:00 Maura .GLOMERULAR FILTRATION RATE 2021-08-20 Makayla Garner MD 14:47:00 Maura CALCIUM LEVEL TOTAL 2021-08-20 Makayla Garner MD 14:47:00 Maura ALBUMIN LEVEL 2021-08-20 PatsyMakayla lozano MD 14:47:00 Maura ALKALINE PHOSPHATASE 2021-08-20 PatsyMakayla lozano MD Anderso n 14:47:00 Maura ALANINE AMINOTRANSFERASE 2021-08-20 Makayla Garner MD And erson 14:47:00 Maura ASPARTATE AMINOTRANSFERASE 2021-08-20 Patsy, Makayla NICOLAS A nderson 14:47:00 Maura TOTAL PROTEIN 2021-08-20 PatsyMakayla lozano MD 14:47:00 Maura FRACTIONATED BILIRUBIN 2021-08-20 PatsyMakayla lozano MD Arsenio son 14:47:00 Maura COMPLETE BLOOD COUNT W/ 2021-08-20 Makayla Garner MD Servando rson DIFFERENTIAL 14:43:00 Maura Results CBC 2021-08-20 Makayla Garner MD 14:43:00 Maura MANUAL DIFFERENTIAL 2021-08-20 Makayla Garner MD 14:43:00 Maura POC GLUCOSE SCREEN 2021-08-20 Makayla Garner MD 13:00:00 Maura POC GLUCOSE SCREEN 2021-08-20 Juanjo Johnson MD 08:36:00 CT ABDOMEN PELVIS W CONTRAST 2021-08-20 Andrew Hickey 06:55:00 POC VENOUS BLOOD GAS + LACTATE 2021-08-20 Andrew Hickey MD 04:00:00 URINALYSIS WITH MICROSCOPIC IF 2021-08-20 Margarito Venegas INDICATED 03:35:00 COMPLETE BLOOD COUNT W/ 2021-08-20 Margarito Vneegas MD Arsenio son DIFFERENTIAL 03:35:00 COMPREHENSIVE METABOLIC PANEL 2021-08-20 Margarito Venegas MD 03:35:00 MAGNESIUM LEVEL 2021-08-20 Margarito Venegas MD 03:35:00 PHOSPHORUS LEVEL 2021-08-20 Margarito Venegas MD 03:35:00 PROTHROMBIN TIME 2021-08-20 Margarito Venegas MD 03:35:00 APTT 2021-08-20 Margarito Venegas MD 03:35:00 TYPE AND SCREEN 2021-08-20 Margarito Venegas MD 03:35:00 Results CBC 2021-08-20 Margarito Venegas MD 03:35:00 MANUAL DIFFERENTIAL 2021-08-20 Margarito Venegas MD 03:35:00 GLUCOSE LEVEL 2021-08-20 Margarito Venegas MD 03:35:00 BLOOD UREA NITROGEN 2021-08-20 Margarito Venegas MD 03:35:00 ELECTROLYTE PANEL 2021-08-20 Margarito Venegas MD 03:35:00 SERUM CREATININE 2021-08-20 Margarito Venegas MD 03:35:00 .GLOMERULAR FILTRATION RATE 2021-08-20 Margarito Venegas MD nderson 03:35:00 CALCIUM LEVEL TOTAL 2021-08-20 Margarito Venegas MD 03:35:00 ALBUMIN LEVEL 2021-08-20 Margarito Venegas MD 03:35:00 ALKALINE PHOSPHATASE 2021-08-20 Margarito Venegas MD 03:35:00 ALANINE AMINOTRANSFERASE 2021-08-20 Margarito Venegas MD rson 03:35:00 ASPARTATE AMINOTRANSFERASE 2021-08-20 Margarito Venegas MD 03:35:00 TOTAL PROTEIN 2021-08-20 Margarito Venegas MD 03:35:00 FRACTIONATED BILIRUBIN 2021-08-20 Margarito Venegas MD on 03:35:00 ABORH 2021-08-20 Margarito Venegas MD 03:35:00 ANTIBODY SCREEN 2021-08-20 Margarito Venegas MD 03:35:00 CLOT EXPIRATION DATE 2021-08-20 Andrew Hickey MD on 03:35:00 TMP INTERPRETATION ANTIBODY 2021-08-20 Margarito Venegas MD nderson SCREEN NEGATIVE 03:35:00 BLOODCULTURE 2021-08-20 Margarito Venegas MD 03:35:00 URINE CULTURE 2021-08-20 Theo, Margarito Tavarez 03:35:00 RESPIRATORY VIRAL PANEL + 2021-08-20 Andrew Hickey MD nderson COVID-19, NASOPHARYNGEAL SWAB 03:35:00 POTASSIUM LEVEL 2021-08-18 Christopher Barnett MD 20:30:00 COMPREHENSIVE METABOLIC PANEL 2021-08-18 Christopher Barnett MD 14:25:00 CANCER ANTIGEN 19-9 2021-08-18 Christopher Barnett MD Arsenio son 14:25:00 COMPLETE BLOOD COUNT W/ 2021-08-18 Christopher Barnett MD nderson DIFFERENTIAL 14:25:00 GLUCOSE LEVEL 2021-08-18 Christopher Barnett MD 14:25:00 BLOOD UREA NITROGEN 2021-08-18 Christopher Barnett MD [facility] 14:25:00 ELECTROLYTE PANEL 2021-08-18 Christopher Barnett MD [facility] 14:25:00 SERUM CREATININE 2021-08-18 Christopher Barnett MD 14:25:00 .GLOMERULAR FILTRATION RATE 2021-08-18 Christopher Barnett MD 14:25:00 CALCIUM LEVEL TOTAL 2021-08-18 Christopher Barnett MD [facility] 14:25:00 ALBUMIN LEVEL 2021-08-18 Christopher Barnett MD 14:25:00 ALKALINE PHOSPHATASE 2021-08-18 Christopher Barnett MD Servando rson 14:25:00 ALANINE AMINOTRANSFERASE 2021-08-18 Christopher Barnett MD 14:25:00 ASPARTATE AMINOTRANSFERASE 2021-08-18 Christopher Barnett 14:25:00 TOTAL PROTEIN 2021-08-18 Christopher Barnett MD 14:25:00 FRACTIONATED BILIRUBIN 2021-08-18 Christopher Barnett MD 14:25:00 Results CBC 2021-08-18 Christopher Barnett MD 14:25:00 MANUAL DIFFERENTIAL 2021-08-18 Christopher Barnett MD Arsenio son 14:25:00 COVID-19 (SARS-COV-2) 2021-08-16 Dahlia Moncada MD Anddor[facility] 14:44:00 C DIFFICILE DNA ASSAY 2021-08-10 Christopher Barnett MD And erson 14:30:00 C DIFFICILE DNA ASSAY PATH 2021-08-10 Christopher Barnett REVIEW 14:30:00 STOOL CULTURE 2021-08-10 Christopher Barnett MD 14:14:00 COMPREHENSIVE METABOLIC PANEL 2021-08-10 Christopher Barnett MD 12:43:00 CANCER ANTIGEN 19-9 2021-08-10 Christopher Barnett MD Arsenio son 12:43:00 COMPLETE BLOOD COUNT W/ 2021-08-10 Christopher Barnett MD ndersliset DIFFERENTIAL 12:43:00 GLUCOSE LEVEL 2021-08-10 Christopher Barnett MD 12:43:00 BLOOD UREA NITROGEN 2021-08-10 Christopher Barnett MD Arsenio son 12:43:00 ELECTROLYTE PANEL 2021-08-10 Christopher Barnett MD 12:43:00 SERUM CREATININE 2021-08-10 Christopher Barnett MD 12:43:00 .GLOMERULAR FILTRATION RATE 2021-08-10 Christopher Barnett MD 12:43:00 CALCIUM LEVEL TOTAL 2021-08-10 Christopher Barnett MD Arsenio son 12:43:00 ALBUMIN LEVEL 2021-08-10 Christopher Barnett MD 12:43:00 ALKALINE PHOSPHATASE 2021-08-10 Christopher Barnette rson 12:43:00 ALANINE AMINOTRANSFERASE 2021-08-10 Christopher Barnett MD 12:43:00 ASPARTATE AMINOTRANSFERASE 2021-08-10 Christopher Barnett 12:43:00 TOTAL PROTEIN 2021-08-10 Christopher Barnett MD 12:43:00 FRACTIONATED BILIRUBIN 2021-08-10 Christopher Barnett MD 12:43:00 Results CBC 2021-08-10 Christopher Barnett MD 12:43:00 MANUAL DIFFERENTIAL 2021-08-10 Christopher Barnett MD Arsenio son 12:43:00 COMPREHENSIVE METABOLIC PANEL 2021-07-27 Christopher Barnett MD 12:41:00 CANCER ANTIGEN 19-9 2021-07-27 Christopher Barnett MD Arsenio son 12:41:00 COMPLETE BLOOD COUNT W/ 2021-07-27 Christopher Barnett MD nderson DIFFERENTIAL 12:41:00 GLUCOSE LEVEL 2021-07-27 Christopher Barnett MD 12:41:00 BLOOD UREA NITROGEN 2021-07-27 Christopher Barnett MD Arsenio son 12:41:00 ELECTROLYTE PANEL 2021-07-27 [facility] 12[facility] SERUM CREATININE 2021-07-27 Christopher Barnett MD 12:41:00 .GLOMERULAR FILTRATION RATE 2021-07-27 Christopher Barnett MD 12:41:00 CALCIUM LEVEL TOTAL 2021-07-27 Christopher Barnett MD Arsenio son 12:41:00 ALBUMIN LEVEL 2021-07-27 Christopher Barnett MD 12:41:00 ALKALINE PHOSPHATASE 2021-07-27 Christopher Barnett MD Servando rson 12:41:00 ALANINE AMINOTRANSFERASE 2021-07-27 Christopher Barnett MD 12:41:00 ASPARTATE AMINOTRANSFERASE 2021-07-27 Christopher Barnett 12:41:00 TOTAL PROTEIN 2021-07-27 Christopher Barnett MD 12:41:00 FRACTIONATED BILIRUBIN 2021-07-27 Christopher Barnett MD 12:41:00 Results CBC 2021-07-27 Christopher Barnett MD 12:41:00 MANUAL DIFFERENTIAL 2021-07-27 Christopher Barnett MD Arsenio son 12:41:00 COMPREHENSIVE METABOLIC PANEL 2021-07-21 Mai Gtz MD 08:44:00 COMPLETE BLOOD COUNT W/ 2021-07-21 Mai Gtz MD Arsenio son DIFFERENTIAL 08:44:00 MAGNESIUM LEVEL 2021-07-21 Mai Gtz MD 08:44:00 PHOSPHORUS LEVEL 2021-07-21 Mai Gtz MD 08:44:00 GLUCOSE LEVEL 2021-07-21 MD Corby Bains 08:44:00 Quan Farias BLOOD UREA NITROGEN 2021-07-21 MD Corby Bains 08:44:00 Quan J ELECTROLYTE PANEL 2021-07-21 MD Corby Bains 08:44:00 Quan Farias SERUM CREATININE 2021-07-21 MD Corby Bains 08:44:00 Quan Farias .GLOMERULAR FILTRATION RATE 2021-07-21 MD Loly Bains nderson 08:44:00 Quan Farias CALCIUM LEVEL TOTAL 2021-07-21 MD Corby Bains 08:44:00 Quan Farias ALBUMIN LEVEL 2021-07-21 MD Corby Bains 08:44:00 Quan Farias ALKALINE PHOSPHATASE 2021-07-21 MD Corby Bains 08:44:00 Quan Farias ALANINE AMINOTRANSFERASE 2021-07-21 Dolly Zimmerman MD Servando rson 08:44:00 Quan J ASPARTATE AMINOTRANSFERASE 2021-07-21 MD Tiffany Bains derson 08:44:00 Quan Farias TOTAL PROTEIN 2021-07-21 MD Corby Bains 08:44:00 Quan Farias FRACTIONATED BILIRUBIN 2021-07-21 Dolly Zimmerman MD Aba on 08:44:00 Quan Farias Results CBC 2021-07-21 MD Corby Bains 08:44:00 Quan Farias MANUAL DIFFERENTIAL 2021-07-21 MD Corby Bains 08:44:00 Quan Farias COMPREHENSIVE METABOLIC PANEL 2021-07-20 Mai Gtz MD 13:55:00 GLUCOSE LEVEL 2021-07-20 MD Corby Bains 13:55:00 Quan J BLOOD UREA NITROGEN 2021-07-20 MD Corby Bains 13:55:00 Quan J ELECTROLYTE PANEL 2021-07-20 MD Corby Bains 13:55:00 Quan J SERUM CREATININE 2021-07-20 MD Corby Bains 13:55:00 Quan J .GLOMERULAR FILTRATION RATE 2021-07-20 MD Loly Bains nderson 13:55:00 Quan J CALCIUM LEVEL TOTAL 2021-07-20 MD Corby Bains 13:55:00 Quan J ALBUMIN LEVEL 2021-07-20 MD Corby Bains 13:55:00 Quan J ALKALINE PHOSPHATASE 2021-07-20 MD Corby Bains 13:55:00 Quan J ALANINE AMINOTRANSFERASE 2021-07-20 Dolly Zimmerman MD Servando rson 13:55:00 Quan J ASPARTATE AMINOTRANSFERASE 2021-07-20 Dolly Zimmerman MD An derson 13:55:00 Quan Jarrett TOTAL PROTEIN 2021-07-20 MD Corby Bains 13:55:00 Quan Farias FRACTIONATED BILIRUBIN 2021-07-20 Dolly Zimmerman MD Aba on 13:55:00 Quan Farias COMPLETE BLOOD COUNT W/ 2021-07-20 Nadeem Pittman MD Arsenio son DIFFERENTIAL 09:47:00 BASIC METABOLIC PANEL, CALCIUM 2021-07-20 Nadeem Pittman TOTAL 09:47:00 MAGNESIUM LEVEL 2021-07-20 Nadeem Pittman MD 09:47:00 PHOSPHORUS LEVEL 2021-07-20 Nadeem Pittman MD 09:47:00 Results CBC 2021-07-20 Nadeem Pittman MD 09:47:00 MANUAL DIFFERENTIAL 2021-07-20 Nadeem Pittman MD 09:47:00 GLUCOSE LEVEL 2021-07-20 Nadeem Pittman MD 09:47:00 BLOOD UREA NITROGEN 2021-07-20 Nadeem Pittman MD 09:47:00 ELECTROLYTE PANEL 2021-07-20 Nadeem Pittman MD 09:47:00 SERUM CREATININE 2021-07-20 Nadeem Pittman MD 09:47:00 .GLOMERULAR FILTRATION RATE 2021-07-20 Nadeem Pittman MD nderson 09:47:00 CALCIUM LEVEL TOTAL 2021-07-20 Nadeem Pittman MD 09:47:00 POC GLUCOSE SCREEN 2021-07-19 MD Meir Mckinnon n 21:28:00 Benito IR EXCHANGE OF BILIARY DRAINAGE 2021-07-19 [facility], Nadeem Tavarez CATHETER 21:05:45 POC GLUCOSE SCREEN 2021-07-19 MD Meir Mckinnon 19:15:[address] ABDOMEN PELVIS W CONTRAST 2021-07-19 [facility] 06:12:32 PROTHROMBIN TIME 2021-07-19 Nadeem Pittman MD 05:25:00 APTT [facility] BLOODC[facility]URE 2021-07-19 [facility] 04:02:00 MAGNESIUM LEVEL 2021-07-19 [facility], Nadeem Tavarez 03:34:00 PHOSPHORUS LEVEL 2021-07-19 [facility] 03:34:00 COMPREHENSIVE METABOLIC PANEL 2021-07-19 [facility] 03:34:00 COMPLETE BLOOD COUNT W/ 2021-07-19 Nadeem Pittman MD son DIFFERENTIAL 03:34:00 LACTIC ACID, VENOUS 2021-07-19 [facility] 03:34:00 GLUCOSE LEVEL 2021-07-19 [facility] 03:34:00 BLOOD UREA NITROGEN 2021-07-19 [facility] 03:34:00 ELECTROLYTE PANEL 2021-07-19 [facility], Nadeem Tavarez 03:34:00 SERUM CREATININE 2021-07-19 [facility] 03:34:00 .GLOMERULAR FILTRATION RATE 2021-07-19 Nadeem Pittman MD nderson 03:34:00 CALCIUM LEVEL TOTAL 2021-07-19 [facility] 03:34:00 ALBUMIN LEVEL 2021-07-19 [facility] 03:34:00 ALKALINE PHOSPHATASE 2021-07-19 [facility] 03:34:00 ALANINE AMINOTRANSFERASE 2021-07-19 [facility] rson 03:34:00 ASPARTATE AMINOTRANSFERASE 2021-07-19 [facility] derson 03:34:00 TOTAL PROTEIN 2021-07-19 [facility] 03:34:00 FRACTIONATED BILIRUBIN 2021-07-19 Nadeem Pittman MD on 03:34:00 Results CBC 2021-07-19 Nadeem Pittman MD 03:34:00 MANUAL DIFFERENTIAL 2021-07-19 Nadeem Pittman MD 03:34:00 BLOODCULTURE 2021-07-19 Nadeem Pittman MD 03:34:00 INFLUENZA A/B + COVID-19 2021-07-19 Nadeem Pittman MD rson ASYMPTOMATIC-L 03:34:00 POC GLUCOSE SCREEN 2021-07-14 MD Meir Mckinnon n 18:24:00 Benito COMPLETE BLOOD COUNT W/ 2021-07-10 Dahlia Moncada MD son DIFFERENTIAL 13:10:00 COMPREHENSIVE METABOLIC PANEL 2021-07-10 Dahlia Moncada MD 13:10:00 CANCER ANTIGEN 19-9 2021-07-10 Dahlia Moncada MD 13:10:00 Results CBC 2021-07-10 Dahlia Moncada MD 13:10:00 MANUAL DIFFERENTIAL 2021-07-10 Dahlia Moncada MD 13:10:00 GLUCOSE LEVEL 2021-07-10 Dahlia Moncada MD 13:10:00 BLOOD UREA NITROGEN 2021-07-10 Dahlia Moncada MD 13:10:00 ELECTROLYTE PANEL 2021-07-10 Dahlia Moncada MD 13:10:00 SERUM CREATININE 2021-07-10 Dahlia Moncada MD 13:10:00 .GLOMERULAR FILTRATION RATE 2021-07-10 Dahlia Moncada MD nderson 13:10:00 CALCIUM LEVEL TOTAL 2021-07-10 Dahlia Moncada MD 13:10:00 ALBUMIN LEVEL 2021-07-10 Dahlia Moncada MD 13:10:00 ALKALINE PHOSPHATASE 2021-07-10 Dahlia Moncada MD 13:10:00 ALANINE AMINOTRANSFERASE 2021-07-10 Dahlia Moncada MD 13:10:00 ASPARTATE AMINOTRANSFERASE 2021-07-10 Dahlia Moncada MD derson 13:10:00 TOTAL PROTEIN 2021-07-10 Dahlia Moncada MD 13:10:00 FRACTIONATED BILIRUBIN 2021-07-10 Dahlia Moncada MD on 13:10:00 HEPATIC FUNCTION PANEL 2021-07-07 Sudhir, Marie Troncoso on 07:12:00 COMPLETE BLOOD COUNT W/ 2021-07-07 Juanjo Johnson MD Arsenio son DIFFERENTIAL 07:12:00 COMPREHENSIVE METABOLIC PANEL 2021-07-07 Juanjo Johnson MD 07:12:00 MAGNESIUM LEVEL 2021-07-07 AliJuanjo MD 07:12:00 PHOSPHORUS LEVEL 2021-07-07 AliJuanjo MD 07:12:00 ALBUMIN LEVEL 2021-07-07 Sudhir, Marie Tavarez 07:12:00 ALKALINE PHOSPHATASE 2021-07-07 Sudhir, Marie Tavarez 07:12:00 ALANINE AMINOTRANSFERASE 2021-07-07 Sudhir, Marie Al rson 07:12:00 ASPARTATE AMINOTRANSFERASE 2021-07-07 Sudhir, Marie Allen derson 07:12:00 TOTAL PROTEIN 2021-07-07 Sudhir, Marie Tavarez 07:12:00 FRACTIONATED BILIRUBIN 2021-07-07 Sudhir, Marie Troncoso on 07:12:00 GLUCOSE LEVEL 2021-07-07 AliJuanjo MD 07:12:00 BLOOD UREA NITROGEN 2021-07-07 AliJuanjo MD 07:12:00 ELECTROLYTE PANEL 2021-07-07 AliJuanjo MD 07:12:00 SERUM CREATININE 2021-07-07 Juanjo Johnson MD 07:12:00 .GLOMERULAR FILTRATION RATE 2021-07-07 Juanjo Johnson MD nderson 07:12:00 CALCIUM LEVEL TOTAL 2021-07-07 Juanjo Johnson MD 07:12:00 Results CBC 2021-07-07 Juanjo Johnson MD 07:12:00 MANUAL DIFFERENTIAL 2021-07-07 Juanjo Johnson MD 07:12:00 HEPATIC FUNCTION PANEL 2021-07-06 Sudhir, Marie Troncoso on 09:06:00 COMPLETE BLOOD COUNT W/ 2021-07-06 Juanjo Johnson MD son DIFFERENTIAL 09:06:00 COMPREHENSIVE METABOLIC PANEL 2021-07-06 Juanjo Johnson MD 09:06:00 MAGNESIUM LEVEL 2021-07-06 Juanjo Johnson MD 09:06:00 PHOSPHORUS LEVEL 2021-07-06 Juanjo Johnson MD 09:06:00 ALBUMIN LEVEL 2021-07-06 Sudhir, Marie Tavarez 09:06:00 ALKALINE PHOSPHATASE 2021-07-06 Sudhir, Marie Tavarez 09:06:00 ALANINE AMINOTRANSFERASE 2021-07-06 Sudhir, Marie Al rson 09:06:00 ASPARTATE AMINOTRANSFERASE 2021-07-06 Sudhir, Marie salcedoson 09:06:00 TOTAL PROTEIN 2021-07-06 Sudhir, Marie Tavarez 09:06:00 FRACTIONATED BILIRUBIN 2021-07-06 Sudhir, Marie Troncoso on 09:06:00 GLUCOSE LEVEL 2021-07-06 Ali, Juanjo Tavarez 09:06:00 BLOOD UREA NITROGEN 2021-07-06 Ali, Juanjo Tavarez 09:06:00 ELECTROLYTE PANEL 2021-07-06 AliJuanjo MD 09:06:00 SERUM CREATININE 2021-07-06 Ali, Juanjo Tavarez 09:06:00 .GLOMERULAR FILTRATION RATE 2021-07-06 Juanjo Johnson MD nderson 09:06:00 CALCIUM LEVEL TOTAL 2021-07-06 AliJuanjo MD 09:06:00 Results CBC 2021-07-06 Juanjo Johnson MD 09:06:00 MANUAL DIFFERENTIAL 2021-07-06 Juanjo Johnson MD 09:06:00 HEPATIC FUNCTION PANEL 2021-07-05 Sudhir, Marie Troncoso on 07:38:00 COMPLETE BLOOD COUNT W/ 2021-07-05 Juanjo Johnson MD son DIFFERENTIAL 07:38:00 COMPREHENSIVE METABOLIC PANEL 2021-07-05 Juanjo Johnson MD 07:38:00 MAGNESIUM LEVEL 2021-07-05 AliJuanjo MD 07:38:00 PHOSPHORUS LEVEL 2021-07-05 AliJuanjo MD 07:38:00 ALBUMIN LEVEL 2021-07-05 Sudhir, Marie Tavarez 07:38:00 ALKALINE PHOSPHATASE 2021-07-05 Sudhir, Marie Tavarez 07:38:00 ALANINE AMINOTRANSFERASE 2021-07-05 Sudhir, Marie Al rson 07:38:00 ASPARTATE AMINOTRANSFERASE 2021-07-05 Sudhir, Marie salcedoson 07:38:00 TOTAL PROTEIN 2021-07-05 Sudhir, Marie Tavarez 07:38:00 FRACTIONATED BILIRUBIN 2021-07-05 Sudhir, Marie Troncoso on 07:38:00 GLUCOSE LEVEL 2021-07-05 Juanjo Johnson MD 07:38:00 BLOOD UREA NITROGEN 2021-07-05 Juanjo Johnson MD 07:38:00 ELECTROLYTE PANEL 2021-07-05 Juanjo Johnson MD 07:38:00 SERUM CREATININE 2021-07-05 Juanjo Johnson MD 07:38:00 .GLOMERULAR FILTRATION RATE 2021-07-05 Juanjo Johnson MD ndersliset 07:38:00 CALCIUM LEVEL TOTAL 2021-07-05 Juanjo Johnson MD 07:38:00 Results CBC 2021-07-05 Juanjo Johnson MD 07:38:00 MANUAL DIFFERENTIAL 2021-07-05 Juanjo Johnson MD 07:38:00 GENERAL LABORATORY ADD ON TEST 2021-07-04 Dahlia Moncada 13:37:00 HEPATIC FUNCTION PANEL 2021-07-04 Sudhir, Marie Troncoso on 07:25:00 COMPLETE BLOOD COUNT W/ 2021-07-04 Juanjo Johnson MD son DIFFERENTIAL 07:25:00 COMPREHENSIVE METABOLIC PANEL 2021-07-04 Juanjo Johnson MD 07:25:00 MAGNESIUM LEVEL 2021-07-04 Juanjo Johnson MD 07:25:00 PHOSPHORUS LEVEL 2021-07-04 Juanjo Johnson MD 07:25:00 ALBUMIN LEVEL 2021-07-04 Sudhir, Marie Tavarez 07:25:00 ALKALINE PHOSPHATASE 2021-07-04 Sudhir, Marie Tavarez 07:25:00 ALANINE AMINOTRANSFERASE 2021-07-04 Sudhir, Marie Al rsliset 07:25:00 ASPARTATE AMINOTRANSFERASE 2021-07-04 Sudhir, Marie mcbride 07:25:00 TOTAL PROTEIN 2021-07-04 Sudhir, Marie Tavarez 07:25:00 FRACTIONATED BILIRUBIN 2021-07-04 Sudhir, Marie Troncoso on 07:25:00 GLUCOSE LEVEL 2021-07-04 Juanjo Johnson MD 07:25:00 BLOOD UREA NITROGEN 2021-07-04 Juanjo Johnson MD 07:25:00 ELECTROLYTE PANEL 2021-07-04 Juanjo Johnson MD 07:25:00 SERUM CREATININE 2021-07-04 Junajo Johnson MD 07:25:00 .GLOMERULAR FILTRATION RATE 2021-07-04 Juanjo Johnson MD 07:25:00 CALCIUM LEVEL TOTAL 2021-07-04 Juanjo Johnson MD 07:25:00 Results CBC 2021-07-04 Juanjo Johnson MD 07:25:00 MANUAL DIFFERENTIAL 2021-07-04 Juanjo Johnson MD 07:25:00 CANCER ANTIGEN 19-9 2021-07-04 Sudhir, Marie Tavarez 07:25:00 HEPATIC FUNCTION PANEL 2021-07-03 Sudhir, Marie Troncoso on 09:44:00 COMPLETE BLOOD COUNT W/ 2021-07-03 Juanjo Johnson MD son DIFFERENTIAL 09:44:00 COMPREHENSIVE METABOLIC PANEL 2021-07-03 Juanjo Johnson MD 09:44:00 MAGNESIUM LEVEL 2021-07-03 Juanjo Johnson MD 09:44:00 PHOSPHORUS LEVEL 2021-07-03 Juanjo Johnson MD 09:44:00 ALBUMIN LEVEL 2021-07-03 Sudhir, Marie Tavarez 09:44:00 ALKALINE PHOSPHATASE 2021-07-03 Sudhir, Marie Tavarez 09:44:00 ALANINE AMINOTRANSFERASE 2021-07-03 Sudhir, Marie Al rson 09:44:00 ASPARTATE AMINOTRANSFERASE 2021-07-03 Sudhir, Marie mcbride 09:44:00 TOTAL PROTEIN 2021-07-03 Sudhir, Marie Tavarez 09:44:00 FRACTIONATED BILIRUBIN 2021-07-03 Sudhir, Marie Troncoso on 09:44:00 GLUCOSE LEVEL 2021-07-03 Juanjo Johnson MD 09:44:00 BLOOD UREA NITROGEN 2021-07-03 Juanjo Johnson MD 09:44:00 ELECTROLYTE PANEL 2021-07-03 Juanjo Johnson MD 09:44:00 SERUM CREATININE 2021-07-03 Juanjo Johnson MD 09:44:00 .GLOMERULAR FILTRATION RATE 2021-07-03 Juanjo Johnson MD 09:44:00 CALCIUM LEVEL TOTAL 2021-07-03 Juanjo Johnson MD 09:44:00 Results CBC 2021-07-03 Juanjo Johnson MD 09:44:00 MANUAL DIFFERENTIAL 2021-07-03 Juanjo Johnson MD 09:44:00 HEPATIC FUNCTION PANEL 2021-07-02 Sudhir, Marie Troncoso on 07:26:00 COMPLETE BLOOD COUNT W/ 2021-07-02 Juanjo Johnson MD Arsenio son DIFFERENTIAL 07:26:00 COMPREHENSIVE METABOLIC PANEL 2021-07-02 Juanjo Johnson MD 07:26:00 MAGNESIUM LEVEL 2021-07-02 Juanjo Johnson MD 07:26:00 PHOSPHORUS LEVEL 2021-07-02 Juanjo Johnson MD 07:26:00 ALBUMIN LEVEL 2021-07-02 Sudhir, Marie Tavarez 07:26:00 ALKALINE PHOSPHATASE 2021-07-02 Sudhir, Marie Tavarez 07:26:00 ALANINE AMINOTRANSFERASE 2021-07-02 Sudhir, Marie Al rson 07:26:00 ASPARTATE AMINOTRANSFERASE 2021-07-02 Sudhir, Marie salcedoson 07:26:00 TOTAL PROTEIN 2021-07-02 Sudhir, Marie Tavarez 07:26:00 FRACTIONATED BILIRUBIN 2021-07-02 Sudhir, Marie Troncoso on 07:26:00 GLUCOSE LEVEL 2021-07-02 Juanjo Johnson MD 07:26:00 BLOOD UREA NITROGEN 2021-07-02 Juanjo Johnson MD 07:26:00 ELECTROLYTE PANEL 2021-07-02 Juanjo Johnson MD 07:26:00 SERUM CREATININE 2021-07-02 Juanjo Johnson MD 07:26:00 .GLOMERULAR FILTRATION RATE 2021-07-02 Juanjo Johnson MD nderson 07:26:00 CALCIUM LEVEL TOTAL 2021-07-02 Juanjo Johnson MD 07:26:00 Results CBC 2021-07-02 Juanjo Johnson MD 07:26:00 MANUAL DIFFERENTIAL 2021-07-02 Juanjo Johnson MD 07:26:00 CT ABDOMEN W CONTRAST 2021-07-01 Ed Bennett MD Arsenio son 18:50:13 HEPATIC FUNCTION PANEL 2021-07-01 Sudhir, Marie Troncoso on 05:42:00 COMPLETE BLOOD COUNT W/ 2021-07-01 Juanjo Johnsoner son DIFFERENTIAL 05:42:00 COMPREHENSIVE METABOLIC PANEL 2021-07-01 Juanjo Johnson MD 05:42:00 MAGNESIUM LEVEL 2021-07-01 Juanjo Johnson MD 05:42:00 PHOSPHORUS LEVEL 2021-07-01 Juanjo Johnson MD 05:42:00 ALBUMIN LEVEL 2021-07-01 Sudhir, Marie Tavarez 05:42:00 ALKALINE PHOSPHATASE 2021-07-01 Sudhir, Marie Tavarez 05:42:00 ALANINE AMINOTRANSFERASE 2021-07-01 Sudhir, Marie Al rson 05:42:00 ASPARTATE AMINOTRANSFERASE 2021-07-01 Sudhir, Marie Allen derson 05:42:00 TOTAL PROTEIN 2021-07-01 Sudhir, Marie Tavarez 05:42:00 FRACTIONATED BILIRUBIN 2021-07-01 Sudhir, Marie Troncoso on 05:42:00 GLUCOSE LEVEL 2021-07-01 Juanjo Johnson MD 05:42:00 BLOOD UREA NITROGEN 2021-07-01 Juanjo Johnson MD 05:42:00 ELECTROLYTE PANEL 2021-07-01 Juanjo Johnson MD 05:42:00 SERUM CREATININE 2021-07-01 Juanjo Johnson MD 05:42:00 .GLOMERULAR FILTRATION RATE 2021-07-01 Juanjo Johnson MD nderson 05:42:00 CALCIUM LEVEL TOTAL 2021-07-01 Juanjo Johnson MD 05:42:00 Results CBC 2021-07-01 Juanjo Johnson MD 05:42:00 MANUAL DIFFERENTIAL 2021-07-01 Juanjo Johnson MD 05:42:00 HEPATIC FUNCTION PANEL 2021-06-30 Sudhir, Marie Troncoso on 08:51:00 COMPLETE BLOOD COUNT W/ 2021-06-30 Juanjo Johnsoner son DIFFERENTIAL 08:51:00 COMPREHENSIVE METABOLIC PANEL 2021-06-30 Juanjo Johnson MD 08:51:00 MAGNESIUM LEVEL 2021-06-30 Juanjo Johnson MD 08:51:00 PHOSPHORUS LEVEL 2021-06-30 Juanjo Johnson MD 08:51:00 ALBUMIN LEVEL 2021-06-30 Sudhir, Marie Tavarez 08:51:00 ALKALINE PHOSPHATASE 2021-06-30 Sudhir, Marie Tavarez 08:51:00 ALANINE AMINOTRANSFERASE 2021-06-30 Sudhir, Marie Al rson 08:51:00 ASPARTATE AMINOTRANSFERASE 2021-06-30 Sudhir, Marie mcbride 08:51:00 TOTAL PROTEIN 2021-06-30 Sudhir, Marie Tavarez 08:51:00 FRACTIONATED BILIRUBIN 2021-06-30 Sudhir, Marie Troncoso on 08:51:00 GLUCOSE LEVEL 2021-06-30 AliJuanjo MD 08:51:00 BLOOD UREA NITROGEN 2021-06-30 AliJuanjo MD 08:51:00 ELECTROLYTE PANEL 2021-06-30 Juanjo Johnson MD 08:51:00 SERUM CREATININE 2021-06-30 Ali, Juanjo Tavarez 08:51:00 .GLOMERULAR FILTRATION RATE 2021-06-30 Juanjo Johnson MD nderson 08:51:00 CALCIUM LEVEL TOTAL 2021-06-30 Juanjo Johnson MD 08:51:00 Results CBC 2021-06-30 Juanjo Johnson MD 08:51:00 MANUAL DIFFERENTIAL 2021-06-30 Juanjo Johnson MD 08:51:00 HEPATIC FUNCTION PANEL 2021-06-29 Sudhir, Marie Troncoso on 08:51:00 COMPLETE BLOOD COUNT W/ 2021-06-29 Juanjo Johnson MD son DIFFERENTIAL 08:51:00 COMPREHENSIVE METABOLIC PANEL 2021-06-29 Juanjo Johnson MD 08:51:00 MAGNESIUM LEVEL 2021-06-29 AliJuanjo MD 08:51:00 PHOSPHORUS LEVEL 2021-06-29 AliJuanjo MD 08:51:00 ALBUMIN LEVEL 2021-06-29 Sudhir, Marie Tavarez 08:51:00 ALKALINE PHOSPHATASE 2021-06-29 Sudhir, Marie Tavarez 08:51:00 ALANINE AMINOTRANSFERASE 2021-06-29 Sudhir, Marie Al rson 08:51:00 ASPARTATE AMINOTRANSFERASE 2021-06-29 Sudhir, Marie mcbride 08:51:00 TOTAL PROTEIN 2021-06-29 Sudhir, Marie Tavarez 08:51:00 FRACTIONATED BILIRUBIN 2021-06-29 Sudhir, Marie Troncoso on 08:51:00 GLUCOSE LEVEL 2021-06-29 Juanjo Johnson MD 08:51:00 BLOOD UREA NITROGEN 2021-06-29 Juanjo Johnson MD 08:51:00 ELECTROLYTE PANEL 2021-06-29 Juanjo Johnson MD 08:51:00 SERUM CREATININE 2021-06-29 Juanjo Johnson MD 08:51:00 .GLOMERULAR FILTRATION RATE 2021-06-29 Juanjo Johnson MD 08:51:00 CALCIUM LEVEL TOTAL 2021-06-29 Juanjo Johnson MD 08:51:00 Results CBC 2021-06-29 Juanjo Johnson MD 08:51:00 MANUAL DIFFERENTIAL 2021-06-29 Juanjo Johnson MD 08:51:00 HEPATIC FUNCTION PANEL 2021-06-28 Sudhir, Marie Troncoso on 08:00:00 COMPLETE BLOOD COUNT W/ 2021-06-28 Juanjo Johnson MD son DIFFERENTIAL 08:00:00 COMPREHENSIVE METABOLIC PANEL 2021-06-28 Juanjo Johnson MD 08:00:00 MAGNESIUM LEVEL 2021-06-28 Juanjo Johnson MD 08:00:00 PHOSPHORUS LEVEL 2021-06-28 Juanjo Johnson MD 08:00:00 ALBUMIN LEVEL 2021-06-28 Sudhir, Marie Tavarez 08:00:00 ALKALINE PHOSPHATASE 2021-06-28 Sudhir, Marie Tavarez 08:00:00 ALANINE AMINOTRANSFERASE 2021-06-28 Sudhir, Marie Al rsliset 08:00:00 ASPARTATE AMINOTRANSFERASE 2021-06-28 Sudhir, Marie mcbride 08:00:00 TOTAL PROTEIN 2021-06-28 Sudhir, Marie Tavarez 08:00:00 FRACTIONATED BILIRUBIN 2021-06-28 Sudhir, Marie Troncoso on 08:00:00 GLUCOSE LEVEL 2021-06-28 Juanjo Johnson MD 08:00:00 BLOOD UREA NITROGEN 2021-06-28 Juanjo Johnson MD 08:00:00 ELECTROLYTE PANEL 2021-06-28 Juanjo Johnson MD 08:00:00 SERUM CREATININE 2021-06-28 Juanjo Johnson MD 08:00:00 .GLOMERULAR FILTRATION RATE 2021-06-28 Ali, Juanjo MD A nderson 08:00:00 CALCIUM LEVEL TOTAL 2021-06-28 Juanjo Johnson MD 08:00:00 Results CBC 2021-06-28 Juanjo Johnson MD 08:00:00 MANUAL DIFFERENTIAL 2021-06-28 Juanjo Johnson MD 08:00:00 POC GLUCOSE SCREEN 2021-06-28 Marcelo Hill MD 00:35:00 IR PLACEMENT BILIARY DRAINAGE 2021-06-28 Yasemin Huerta MD CATHETER (INTERNAL-EXTERNAL) 90 00:25:02 TRANSFUSE RED BLOOD CELLS 2021-06-27 Sae Paulino MD And erson 23:30:00 DIAGNOSTIC ENDOSCOPIC RETROGRADE 2021-06-27 Tony Quiñonez MD CHOLANGIOPANCREATOGRAPHY 23:30:00 PREPARE RBC 2021-06-27 MD Corby Corcoran 23:23:00 Silke POC GLUCOSE SCREEN 2021-06-27 Marcelo Hill MD 22:45:00 POC GLUCOSE SCREEN 2021-06-27 Marcelo Hill MD 22:01:00 TYPE AND SCREEN 2021-06-27 Donya Scott MD 21:41:00 ABORH 2021-06-27 Donya Scott MD 21:41:00 ANTIBODY SCREEN 2021-06-27 Donya Scott MD 21:41:00 CLOT EXPIRATION DATE 2021-06-27 Marcelo Hill MD 21:41:00 TMP INTERPRETATION ANTIBODY 2021-06-27 Donya Scott SCREEN NEGATIVE 21:41:00 TMP CROSSMATCH INTERPRETATION 2021-06-27 Donya Scott MD 21:41:00 POC GLUCOSE SCREEN 2021-06-27 Marcelo Hill MD 21:33:00 ENDOSCOPY NOTE RESULTS 2021-06-27 Tony Quiñonez MD on 20:46:19 HEPATIC FUNCTION PANEL 2021-06-27 Marie Peguero MD on 08:02:00 COMPLETE BLOOD COUNT W/ 2021-06-27 Juanjo Johnsoner son DIFFERENTIAL 08:02:00 COMPREHENSIVE METABOLIC PANEL 2021-06-27 Juanjo Johnson MD 08:02:00 MAGNESIUM LEVEL 2021-06-27 Juanjo Johnson MD 08:02:00 PHOSPHORUS LEVEL 2021-06-27 Juanjo Johnson MD 08:02:00 ALBUMIN LEVEL 2021-06-27 Sudhir, Marie Tavarez 08:02:00 ALKALINE PHOSPHATASE 2021-06-27 Sudhir, Marie Tavarez 08:02:00 ALANINE AMINOTRANSFERASE 2021-06-27 Sudhir, Marie Al rson 08:02:00 ASPARTATE AMINOTRANSFERASE 2021-06-27 Sudhir, Marie mcbride 08:02:00 TOTAL PROTEIN 2021-06-27 Sudhir, Marie Tavarez 08:02:00 FRACTIONATED BILIRUBIN 2021-06-27 Sudhir, Marie Troncoso on 08:02:00 GLUCOSE LEVEL 2021-06-27 Juanjo Johnson MD 08:02:00 BLOOD UREA NITROGEN 2021-06-27 Juanjo Johnson MD 08:02:00 ELECTROLYTE PANEL 2021-06-27 Juanjo Johnson MD 08:02:00 SERUM CREATININE 2021-06-27 Juanjo Johnson MD 08:02:00 .GLOMERULAR FILTRATION RATE 2021-06-27 Juanjo Johnson MD nderson 08:02:00 CALCIUM LEVEL TOTAL 2021-06-27 Juanjo Johnson MD 08:02:00 Results CBC 2021-06-27 Juanjo Johnson MD 08:02:00 MANUAL DIFFERENTIAL 2021-06-27 Juanjo Johnson MD 08:02:00 HEPATIC FUNCTION PANEL 2021-06-26u, Marie Troncoso on 08:10:00 COMPLETE BLOOD COUNT W/ 2021-06-26 Juanjo Johnson MD son DIFFERENTIAL 08:10:00 COMPREHENSIVE METABOLIC PANEL 2021-06-26 Juanjo Johnson MD 08:10:00 MAGNESIUM LEVEL 2021-06-26 Juanjo Johnson MD 08:10:00 PHOSPHORUS LEVEL 2021-06-26 Juanjo Johnson MD 08:10:00 ALBUMIN LEVEL 2021-06-26 Sudhir, Marie Tavarez 08:10:00 ALKALINE PHOSPHATASE 2021-06-26 Sudhir, Marie Tavarez 08:10:00 ALANINE AMINOTRANSFERASE 2021-06-26 Sudhir, Marie Al rson 08:10:00 ASPARTATE AMINOTRANSFERASE 2021-06-26 Sudhir, Marie salcedoson 08:10:00 TOTAL PROTEIN 2021-06-26 Sudhir, Marie Tavarez 08:10:00 FRACTIONATED BILIRUBIN 2021-06-26 Sudhir, Marie Troncoso on 08:10:00 GLUCOSE LEVEL 2021-06-26 Juanjo Johnson MD 08:10:00 BLOOD UREA NITROGEN 2021-06-26 Juanjo Johnson MD 08:10:00 ELECTROLYTE PANEL 2021-06-26 Juanjo Johnson MD 08:10:00 SERUM CREATININE 2021-06-26 Juanjo Johnson MD 08:10:00 .GLOMERULAR FILTRATION RATE 2021-06-26 Juanjo Johnson MD nderson 08:10:00 CALCIUM LEVEL TOTAL 2021-06-26 Juanjo Johnson MD 08:10:00 Results CBC 2021-06-26 Juanjo Johnson MD 08:10:00 MANUAL DIFFERENTIAL 2021-06-26 Juanjo Johnson MD 08:10:00 CT HEAD WO CONTRAST 2021-06-25 Juanjo Johnson MD 16:15:00 BLOODCULTURE 2021-06-25 Juanjo Johnson MD 13:46:00 HEPATIC FUNCTION PANEL 2021-06-25 Sudhir, Marie Troncoso on 08:31:00 ALBUMIN LEVEL 2021-06-25 Sudhir, Marie Tavarez 08:31:00 ALKALINE PHOSPHATASE 2021-06-25 Sudhir, Marie Tavarez 08:31:00 ALANINE AMINOTRANSFERASE 2021-06-25 Sudhir, Marie Al rson 08:31:00 ASPARTATE AMINOTRANSFERASE 2021-06-25 Sudhir, Marie salcedoson 08:31:00 TOTAL PROTEIN 2021-06-25 Sudhir, Marie Tavarez 08:31:00 FRACTIONATED BILIRUBIN 2021-06-25 Sudhir, Marie Troncoso on 08:31:00 HEPATIC FUNCTION PANEL 2021-06-24 Sudhir, Marie Troncoso on 08:14:00 ALBUMIN LEVEL 2021-06-24 Sudhir, Marie Tavarez 08:14:00 ALKALINE PHOSPHATASE 2021-06-24 Sudhir, Marie Tavarez 08:14:00 ALANINE AMINOTRANSFERASE 2021-06-24 Sudhir, Marie Al rson 08:14:00 ASPARTATE AMINOTRANSFERASE 2021-06-24 Marie Peguero MD 08:14:00 TOTAL PROTEIN 2021-06-24 Sudhir, Marie Tavarez 08:14:00 FRACTIONATED BILIRUBIN 2021-06-24 Sudhir, Marie Troncoso on 08:14:00 XR ABDOMEN 1 VW PORTABLE 2021-06-24 Cecy Erwin MD And naomie 00:20:18 URINALYSIS WITH MICROSCOPIC IF 2021-06-23 Loida Corcoran INDICATED 08:44:00 Silke URINALYSIS MICROSCOPIC 2021-06-23 MD Aba Corcoran on 08:44:00 Silke URINE CULTURE 2021-06-23 MD Corby Corcoran 08:44:00 Sikle COMPLETE BLOOD COUNT W/ 2021-06-23 MD Arsenio Corcoran son DIFFERENTIAL 08:08:00 Silke BASIC METABOLIC PANEL, CALCIUM 2021-06-23 Loida Corcoran TOTAL 08:08:00 Silke MAGNESIUM LEVEL 2021-06-23 MD Corby Corcoran 08:08:00 Silke PHOSPHORUS LEVEL 2021-06-23 MD Corby Corcoran 08:08:00 Silke HEPATIC FUNCTION PANEL 2021-06-23 Marie Peguero MD on 08:08:00 Results CBC 2021-06-23 MD Corby Corcoran 08:08:00 Silke MANUAL DIFFERENTIAL 2021-06-23 MD Corby Corcoran 08:08:00 Silke GLUCOSE LEVEL 2021-06-23 MD Corby Corcoran 08:08:00 Silke BLOOD UREA NITROGEN 2021-06-23 MD Corby Corcoran 08:08:00 Silke ELECTROLYTE PANEL 2021-06-23 MD Corby Corcoran 08:08:00 Silke SERUM CREATININE 2021-06-23 MD Corby oCrcoran 08:08:00 Silke .GLOMERULAR FILTRATION RATE 2021-06-23 MD Loly Corcoran nderson 08:08:00 Silke CALCIUM LEVEL TOTAL 2021-06-23 MD Corby Corcoran 08:08:00 Silke ALBUMIN LEVEL 2021-06-23 Marie Peguero MD 08:08:00 ALKALINE PHOSPHATASE 2021-06-23 Marie Peguero MD 08:08:00 ALANINE AMINOTRANSFERASE 2021-06-23 Sudhir, Marie NICOLAS Servando rson 08:08:00 ASPARTATE AMINOTRANSFERASE 2021-06-23 Sudhir, Marie mcbride 08:08:00 TOTAL PROTEIN 2021-06-23 Sudhir, Marie Tavarez 08:08:00 FRACTIONATED BILIRUBIN 2021-06-23 Sudhir, Marie NICOLAS Aba on 08:08:00 IR EXCHANGE OF BILIARY DRAINAGE 2021-06-22 MD Corby Corcoran CATHETER 23:26:55 Silke POC GLUCOSE SCREEN 2021-06-22 MD Pratibha Anddorothy n 21:04:00 Benito SEDIMENTATION RATE NON-AUTOMATED 2021-06-22 Sudhir, Marie Tavarez 19:40:00 GENERAL LABORATORY ADD ON TEST 2021-06-22 Sudhir, Marie Tavarez 15:53:00 POC VENOUS BLOOD GAS + LACTATE 2021-06-22 Loida Corcoran 12:45:[address] ABDOMEN PELVIS W CONTRAST 2021-06-22 MD Corby Corcoran 12:30:00 Silke COMPLETE BLOOD COUNT W/ 2021-06-22 Trevon Ziegler MD Arsenio son DIFFERENTIAL 11:18:00 Silke COMPREHENSIVE METABOLIC PANEL 2021-06-22 MD Corby Corcoran 11:18:00 Silke MAGNESIUM LEVEL 2021-06-22 MD Corby Corcoran 11:18:00 Silke PHOSPHORUS LEVEL 2021-06-22 MD Corby Corcoran 11:18:00 Silke LACTATE DEHYDROGENASE 2021-06-22 Trevon Ziegler MD Anderso n 11:18:00 Silke AMYLASE LEVEL 2021-06-22 MD Corby Corcoran 11:18:00 Silke LIPASE LEVEL 2021-06-22 MD Corby Corcoran 11:18:00 Silke Results CBC 2021-06-22 MD Corby Corcoran 11:18:00 Silke MANUAL DIFFERENTIAL 2021-06-22 MD Corby Corcoran 11:18:00 Silke GLUCOSE LEVEL 2021-06-22 MD Corby Corcoran 11:18:00 Silke BLOOD UREA NITROGEN 2021-06-22 MD Corby Corcoran 11:18:00 Silke ELECTROLYTE PANEL 2021-06-22 MD Corby Corcoran 11:18:00 Silke SERUM CREATININE 2021-06-22 MD Corby Corcoran 11:18:00 Silke .GLOMERULAR FILTRATION RATE 2021-06-22 MD Loly Corcoran nderson 11:18:00 Silke CALCIUM LEVEL TOTAL 2021-06-22 MD Corby Corcoran 11:18:00 Silke ALBUMIN LEVEL 2021-06-22 MD Corby Corcoran 11:18:00 Silke ALKALINE PHOSPHATASE 2021-06-22 MD Corby Corcoran 11:18:00 Silke ALANINE AMINOTRANSFERASE 2021-06-22 Trevon Ziegler MD Servando rson 11:18:00 Silke ASPARTATE AMINOTRANSFERASE 2021-06-22 MD Tiffany Corcoran derson 11:18:00 Silke TOTAL PROTEIN 2021-06-22 MD Corby Corcoran 11:18:00 Silke FRACTIONATED BILIRUBIN 2021-06-22 Trevon Ziegler MD Aba on 11:18:00 Silke C REACTIVE PROTEIN 2021-06-22 MD Corby Corcoran 11:18:00 Silke PROCALCITONIN 2021-06-22 MD Corby Corcoran 11:18:00 Silke FERRITIN LVL 2021-06-22 MD Corby Corcoran 11:18:00 Silke BLOODCULTURE 2021-06-22 MD Corby Corcoran 11:18:00 Silke INFLUENZA A/B + COVID-19 2021-06-22 Trevon Ziegler MD Servando rson ASYMPTOMATIC-L 11:18:00 Silke POC GLUCOSE SCREEN 2021-06-22 MD Corby Corcoran 11:09:00 Silke GENERAL LABORATORY ADD ON TEST 2021-06-21 Dahlia Moncada 23:59:00 POC GLUCOSE SCREEN 2021-06-21 Garcia Waldrop MD 17:01:00 POC GLUCOSE SCREEN 2021-06-21 Garcia Waldrop MD 14:21:00 URINALYSIS WITH MICROSCOPIC IF 2021-06-21 Caryn Olivares MD INDICATED 14:07:00 COMPLETE BLOOD COUNT W/ 2021-06-21 Home, Mini MD Arsenio son DIFFERENTIAL 10:49:00 COMPREHENSIVE METABOLIC PANEL 2021-06-21 Home, Monica Tavarez 10:49:00 MAGNESIUM LEVEL 2021-06-21 Home, Monica NICOLAS Corby 10:49:00 PHOSPHORUS LEVEL 2021-06-21 Home, Monica NICOLAS Corby 10:49:00 Results CBC 2021-06-21 Home, Monica Tavarez 10:49:00 MANUAL DIFFERENTIAL 2021-06-21 Home, Monica Tavarez 10:49:00 GLUCOSE LEVEL 2021-06-21 Home, Monica NICOLAS Cor[place] 10:49:00 BLOOD UREA NITROGEN 2021-06-21 Home, Monica NICOLAS Corby 10:49:00 ELECTROLYTE PANEL 2021-06-21 Home, Monica Tavarez 10:49:00 SERUM CREATININE 2021-06-21 Home, Monica Tavarez 10:49:00 .GLOMERULAR FILTRATION RATE 2021-06-21 Home, Monica Salcido nderson 10:49:00 CALCIUM LEVEL TOTAL 2021-06-21 Home, Monica Tavarez 10:49:00 ALBUMIN LEVEL 2021-06-21 Home, Monica Tavarez 10:49:00 ALKALINE PHOSPHATASE 2021-06-21 Home, Monica Tavarez 10:49:00 ALANINE AMINOTRANSFERASE 2021-06-21 Ohme, Monica Al rson 10:49:00 ASPARTATE AMINOTRANSFERASE 2021-06-21 Home, Monica salcedoson 10:49:00 TOTAL PROTEIN 2021-06-21 Home, Monica Tavarez 10:49:00 FRACTIONATED BILIRUBIN 2021-06-21 Home, Monica Troncoso on 10:49:00 CANCER ANTIGEN 19-9 2021-06-21 Home, Monica Tavarez 10:49:00 POC GLUCOSE SCREEN 2021-06-21 Neeraj, Garcia Tavarez 02:58:00 POC GLUCOSE SCREEN 2021-06-20 Le, Phat Corby 23:17:00 POC GLUCOSE SCREEN 2021-06-20 Le, Phat Corby 16:44:00 POC GLUCOSE SCREEN 2021-06-20 Le, Phat MD Tavarez 12:25:00 COMPLETE BLOOD COUNT W/ 2021-06-20 Home, Monica Cesar son DIFFERENTIAL 10:10:00 COMPREHENSIVE METABOLIC PANEL 2021-06-20 Home, Monica Tavarez 10:10:00 MAGNESIUM LEVEL 2021-06-20 Home, Monica Tavarez 10:10:00 PHOSPHORUS LEVEL 2021-06-20 Home, Monica Tavarez 10:10:00 Results CBC 2021-06-20 Home, Monica Tavarez 10:10:00 MANUAL DIFFERENTIAL 2021-06-20 Home, Monica Tavarez 10:10:00 GLUCOSE LEVEL 2021-06-20 Home, Monica Tavarez 10:10:00 BLOOD UREA NITROGEN 2021-06-20 Home, Monica Tavarez 10:10:00 ELECTROLYTE PANEL 2021-06-20 Home, Monica Tavarez 10:10:00 SERUM CREATININE 2021-06-20 Home, Monica Tavarez 10:10:00 .GLOMERULAR FILTRATION RATE 2021-06-20 Home, Monica Salcido nderson 10:10:00 CALCIUM LEVEL TOTAL 2021-06-20 Home, Monica Tavarez 10:10:00 ALBUMIN LEVEL 2021-06-20 Home, Monica Tavarez 10:10:00 ALKALINE PHOSPHATASE 2021-06-20 Home, Monica Tavarez 10:10:00 ALANINE AMINOTRANSFERASE 2021-06-20 Home, Monica Al rson 10:10:00 ASPARTATE AMINOTRANSFERASE 2021-06-20 Home, Monica salcedoson 10:10:00 TOTAL PROTEIN 2021-06-20 Home, Monica Tavarez 10:10:00 FRACTIONATED BILIRUBIN 2021-06-20 Home, Monica Troncoso on 10:10:00 POC GLUCOSE SCREEN 2021-06-20 Le, Garcia Tavarez 01:55:00 POC GLUCOSE SCREEN 2021-06-19 Le, Garcia Tavarez 21:27:00 POC GLUCOSE SCREEN 2021-06-19 Le, Garcia Tavarez 18:46:00 POC GLUCOSE SCREEN 2021-06-19 Le, Garcia Tavarez 12:55:00 COMPLETE BLOOD COUNT W/ 2021-06-19 Monica Bhat MD son DIFFERENTIAL 10:10:00 COMPREHENSIVE METABOLIC PANEL 2021-06-19 Home, Monica Tavarez 10:10:00 MAGNESIUM LEVEL 2021-06-19 Home, Monica Tavarez 10:10:00 PHOSPHORUS LEVEL 2021-06-19 Home, Monica Tavarez 10:10:00 Results CBC 2021-06-19 Home, Monica Tavarez 10:10:00 MANUAL DIFFERENTIAL 2021-06-19 Home Monica Tavarez 10:10:00 GLUCOSE LEVEL 2021-06-19 Home, Monica Tavarez 10:10:00 BLOOD UREA NITROGEN 2021-06-19 Home, Monica Tavarez 10:10:00 ELECTROLYTE PANEL 2021-06-19 Home, Monica Tavarez 10:10:00 SERUM CREATININE 2021-06-19 Home, Monica Tavarez 10:10:00 .GLOMERULAR FILTRATION RATE 2021-06-19 Home, Monica jay 10:10:00 CALCIUM LEVEL TOTAL 2021-06-19 Home, Monica Tavarez 10:10:00 ALBUMIN LEVEL 2021-06-19 Home, Monica Tavarez 10:10:00 ALKALINE PHOSPHATASE 2021-06-19 Home, Monica Tavarez 10:10:00 ALANINE AMINOTRANSFERASE 2021-06-19 Home, Monica chacon 10:10:00 ASPARTATE AMINOTRANSFERASE 2021-06-19 Home, Monica Allen derson 10:10:00 TOTAL PROTEIN 2021-06-19 Home, Monica Tavarez 10:10:00 FRACTIONATED BILIRUBIN 2021-06-19 Home, Monica Troncoso on 10:10:00 POC GLUCOSE SCREEN 2021-06-19 , Suyapa Tavarez 02:17:00 POC GLUCOSE SCREEN 2021-06-18, Suyapa Tavarez 22:42:00 POC GLUCOSE SCREEN 2021-06-18, Suyapa Tavarez 17:18:00 POC GLUCOSE SCREEN 2021-06-18, Suyapa Tavarez 12:53:00 COMPLETE BLOOD COUNT W/ 2021-06-18 Home, Monica Hindser son DIFFERENTIAL 08:29:00 COMPREHENSIVE METABOLIC PANEL 2021-06-18 Home, Monica Tavarez 08:29:00 MAGNESIUM LEVEL 2021-06-18 Home, Monica Tavarez 08:29:00 PHOSPHORUS LEVEL 2021-06-18 Home, Monica Tavarez 08:29:00 Results CBC 2021-06-18 Home, Monica Tavarez 08:29:00 MANUAL DIFFERENTIAL 2021-06-18 Home, Monica Tavarez 08:29:00 GLUCOSE LEVEL 2021-06-18 Home, Monica Tavarez 08:29:00 BLOOD UREA NITROGEN 2021-06-18 Home, Monica Tavarez 08:29:00 ELECTROLYTE PANEL 2021-06-18 Home, Monica Tavarez 08:29:00 SERUM CREATININE 2021-06-18 Home, Monica Tavarez 08:29:00 .GLOMERULAR FILTRATION RATE 2021-06-18 Home, Monica jay 08:29:00 CALCIUM LEVEL TOTAL 2021-06-18 Monica Bhat MD 08:29:00 ALBUMIN LEVEL 2021-06-18 Monica Bhat MD 08:29:00 ALKALINE PHOSPHATASE 2021-06-18 Monica Bhat MD 08:29:00 ALANINE AMINOTRANSFERASE 2021-06-18 Monica Bhat MD 08:29:00 ASPARTATE AMINOTRANSFERASE 2021-06-18 Monica Bhat MD 08:29:00 TOTAL PROTEIN 2021-06-18 Monica Bhat MD 08:29:00 FRACTIONATED BILIRUBIN 2021-06-18 Monica Bhat MD on 08:29:00 POC GLUCOSE SCREEN 2021-06-18, Suyapa Tavarez 02:49:00 POC GLUCOSE SCREEN 2021-06-17, Suyapa Tavarez 21:41:00 MRSA SCREENING CULTURE 2021-06-17 Monica Bhat MD on 17:55:00 POC GLUCOSE SCREEN 2021-06-17, Suyapa Tavarez 17:43:00 POC GLUCOSE SCREEN 2021-06-17, Suyapa Tavarez 13:18:00 COMPLETE BLOOD COUNT W/ 2021-06-17 Zoe Valadez MD And erson DIFFERENTIAL 10:38:00 BASIC METABOLIC PANEL, CALCIUM 2021-06-17 Zoe Valadez MD TOTAL 10:38:00 MAGNESIUM LEVEL 2021-06-17 Zoe Valadez MD 10:38:00 PHOSPHORUS LEVEL 2021-06-17 Zoe Valadez MD 10:38:00 Results CBC 2021-06-17 Zoe Valadez MD 10:38:00 MANUAL DIFFERENTIAL 2021-06-17 Zoe Valadez MD n 10:38:00 GLUCOSE LEVEL 2021-06-17 Zoe Valadez MD 10:38:00 BLOOD UREA NITROGEN 2021-06-17 Zoe Valadez MD n 10:38:00 ELECTROLYTE PANEL 2021-06-17 Zoe Valadez MD 10:38:00 SERUM CREATININE 2021-06-17 Zoe Valadez MD 10:38:00 .GLOMERULAR FILTRATION RATE 2021-06-17 Zoe Valadez MD 10:38:00 CALCIUM LEVEL TOTAL 2021-06-17 Zoe Valadez MD n 10:38:00 URINALYSIS WITH MICROSCOPIC IF 2021-06-17 Arturo Love INDICATED 05:56:00 OSMOLALITY URINE 2021-06-17 Zoe Valadez MD 05:56:00 SODIUM URINE 2021-06-17 Zoe Valadez MD 05:56:00 URINE CULTURE 2021-06-17 Arturo Love MD 05:56:00 OSMOLALITY 2021-06-17 Zoe Valadez MD 05:10:00 THYROID STIMULATING HORMONE 2021-06-17 Zoe Valadez MD 05:10:00 FREE THYROXINE 2021-06-17 Zoe Valadez MD 05:10:00 AMB PATIENT NEEDS REFERRAL TO 2021-06-17 Merry Craft MD PHYSICAL THERAPY 02:29:44 LACTIC ACID, VENOUS 2021-06-17 Zoe Valadez MD 02:09:00 XR CHEST 1 VW 2021-06-17 Arturo Love MD 01:10:18 POC VENOUS BLOOD GAS + LACTATE 2021-06-17 Merry Craft 00:53:00 COMPLETE BLOOD COUNT W/ 2021-06-17 Arturo Loveer son DIFFERENTIAL 00:23:00 COMPREHENSIVE METABOLIC PANEL 2021-06-17 Arturo Love MD 00:23:00 MAGNESIUM LEVEL 2021-06-17 Arturo Love MD 00:23:00 PHOSPHORUS LEVEL 2021-06-17 Arturo Love MD 00:23:00 LACTATE DEHYDROGENASE 2021-06-17 Arturo Love MD n 00:23:00 C REACTIVE PROTEIN 2021-06-17 Arturo Love MD 00:23:00 PROCALCITONIN 2021-06-17 Arturo Love MD 00:23:00 Results CBC 2021-06-17 Arturo Love MD 00:23:00 MANUAL DIFFERENTIAL 2021-06-17 Arturo Love MD 00:23:00 GLUCOSE LEVEL 2021-06-17 Arturo Love MD 00:23:00 BLOOD UREA NITROGEN 2021-06-17 Arturo Love MD 00:23:00 ELECTROLYTE PANEL 2021-06-17 Arturo Love MD 00:23:00 SERUM CREATININE 2021-06-17 Arturo Love MD 00:23:00 .GLOMERULAR FILTRATION RATE 2021-06-17 Kate, Demis MD A nderson 00:23:00 CALCIUM LEVEL TOTAL 2021-06-17 Arturo Love MD 00:23:00 ALBUMIN LEVEL 2021-06-17 Kate, Arturo Tavarez 00:23:00 ALKALINE PHOSPHATASE 2021-06-17 Arturo Love MD 00:23:00 ALANINE AMINOTRANSFERASE 2021-06-17 Kate, Arturo NICOLAS Servando rson 00:23:00 ASPARTATE AMINOTRANSFERASE 2021-06-17 Arturo Love MD derson 00:23:00 TOTAL PROTEIN 2021-06-17 Arturo Love MD 00:23:00 FRACTIONATED BILIRUBIN 2021-06-17 Arturo Love MD Aba on 00:23:00 BLOODCULTURE 2021-06-17 Arturo Love MD 00:23:00 RESPIRATORY VIRAL PANEL + 2021-06-17 Arturo Love MD And erson COVID-19, NASOPHARYNGEAL SWAB 00:23:00 IR EXCHANGE OF BILIARY DRAINAGE 2021-06-16 Dagmar Carrizales MD CATHETER 15:48:00 POC CHEM 8 2021-06-16 Dagmar Carrizales MD 14:26:00 HOME HEALTH - OTHER 2021-06-12 Doctor Unassigned, [facility] 05:01:00 [place] [facility] POC GLUCOSE SCREEN 2021-06-09 Kera Lam MD 18:30:00 COMPLETE BLOOD COUNT W/ 2021-06-09 MD Cathy Arsenio son DIFFERENTIAL 15:03:00 Panchito COMPREHENSIVE METABOLIC PANEL 2021-06-09 MD Corby Morgan 15:03:00 Panchito MAGNESIUM LEVEL 2021-06-09 MD Corby Morgan 15:03:00 Panchito Results CBC 2021-06-09 MD Corby Morgan 15:03:00 Panchito MANUAL DIFFERENTIAL 2021-06-09 MD Corby Morgan 15:03:00 Panchito GLUCOSE LEVEL 2021-06-09 MD Corby Morgan 15:03:00 Panchito BLOOD UREA NITROGEN 2021-06-09 MD Corby Morgan 15:03:00 Panchito ELECTROLYTE PANEL 2021-06-09 MD Corby Morgan 15:03:00 Panchito SERUM CREATININE 2021-06-09 MD Corby Morgan 15:03:00 Panchito .GLOMERULAR FILTRATION RATE 2021-06-09 MD Loly Morgan nderson 15:03:00 Panchito CALCIUM LEVEL TOTAL 2021-06-09 MD Corby Morgan 15:03:00 Panchito ALBUMIN LEVEL 2021-06-09 MD Corby Morgan 15:03:00 Panchito ALKALINE PHOSPHATASE 2021-06-09 MD Corby Morgan 15:03:00 Panchito ALANINE AMINOTRANSFERASE 2021-06-09 MD Servando Morgan rson 15:03:00 Panchito ASPARTATE AMINOTRANSFERASE 2021-06-09 MD Tiffany Morgan derson 15:03:00 Panchito TOTAL PROTEIN 2021-06-09 MD Corby Morgan 15:03:00 Panchito FRACTIONATED BILIRUBIN 2021-06-09 MD Aba Morgan on 15:03:00 Panchito POC GLUCOSE SCREEN 2021-06-09 Kera Lam MD 14:55:00 POC GLUCOSE SCREEN 2021-06-09 Kera Lam MD 03:41:00 ENDOSCOPY NOTE RESULTS 2021-06-08 Royce Moncada MD Aba on 22:27:50 ENDOSCOPIC RETROGRADE 2021-06-08 Royce Moncada MDo n CHOLANGIOPANCREATOGRAPHY WITH 22:04:00 PLACEMENT OF STENT OF BILE DUCT FL ENDOSCOPY FLUOROSCOPY 2021-06-08 Oneal Snow MD Servando rson 21:46:05 POC GLUCOSE SCREEN 2021-06-08 Kera Lam MD 17:57:00 POC GLUCOSE SCREEN 2021-06-08 Kera Lam MD 14:23:00 COMPLETE BLOOD COUNT W/ 2021-06-08 MD Arsenio Morgan son DIFFERENTIAL 13:07:00 Panchito COMPREHENSIVE METABOLIC PANEL 2021-06-08 MD Corby Morgan 13:07:00 Panchito MAGNESIUM LEVEL 2021-06-08 MD Corby Morgan 13:07:00 Panchito LACTIC ACID, VENOUS 2021-06-08 MD Corby Morgan 13:07:00 Panchito PROCALCITONIN 2021-06-08 MD Corby Morgan 13:07:00 Panchito VANCOMYCIN LEVEL TROUGH 2021-06-08 MD Cathy Arsenio son 13:07:00 Panchito Results CBC 2021-06-08 MD Corby Morgan 13:07:00 Panchito MANUAL DIFFERENTIAL 2021-06-08 MD Corby Morgan 13:07:00 Panchito GLUCOSE LEVEL 2021-06-08 MD Corby Morgan 13:07:00 Panchito BLOOD UREA NITROGEN 2021-06-08 MD Corby Morgan 13:07:00 Panchito ELECTROLYTE PANEL 2021-06-08 MD Corby Morgan 13:07:00 Panchito SERUM CREATININE 2021-06-08 MD Corby Morgan 13:07:00 Panchito .GLOMERULAR FILTRATION RATE 2021-06-08 MD Loly Morgan nderson 13:07:00 Panchito CALCIUM LEVEL TOTAL 2021-06-08 MD Corby Morgan 13:07:00 Panchito ALBUMIN LEVEL 2021-06-08 MD Corby Morgan 13:07:00 Panchito ALKALINE PHOSPHATASE 2021-06-08 MD Corby Morgan 13:07:00 Panchito ALANINE AMINOTRANSFERASE 2021-06-08 MD Cathy Servando rson 13:07:00 Panchito ASPARTATE AMINOTRANSFERASE 2021-06-08 MD Tiffany Morgan derson 13:07:00 Panchito TOTAL PROTEIN 2021-06-08 MD Corby Morgan 13:07:00 Panchito FRACTIONATED BILIRUBIN 2021-06-08 MD Cathy Aba on 13:07:00 Panchito POC GLUCOSE SCREEN 2021-06-08 MD Corby Morgan 04:35:00 Panchito POC GLUCOSE SCREEN 2021-06-08 MD Corby Morgan 03:03:00 Panchito POC GLUCOSE SCREEN 2021-06-07 MD Corby Morgan 23:58:00 Panchito WOUND CULTURE W/ GRAM STAIN 2021-06-07 MD Loly Morgan nderson 22:23:00 Panchito POC GLUCOSE SCREEN 2021-06-07 MD Corby Morgan 18:39:00 Panchito GENERAL LABORATORY ADD ON TEST 2021-06-07 Loida Morgan 17:06:00 Panchito GENERAL LABORATORY ADD ON TEST 2021-06-07 Loida Morgan 16:52:00 Panchito GENERAL LABORATORY ADD ON TEST 2021-06-07 Loida Mogran 16:50:00 Panchito URINALYSIS MICROSCOPIC 2021-06-07 Azeb, Andrew Troncoso on 11:15:00 BLOODCULTURE 2021-06-07 Azeb, Andrew Tavarez 11:15:00 URINALYSIS WITH MICROSCOPIC IF 2021-06-07 Azeb, Andrew Tavarez INDICATED 11:15:00 CT ABDOMEN PELVIS W CONTRAST 2021-06-07 Azeb, Andrew Tavarez 06:49:13 CT HEAD WO CONTRAST 2021-06-07 Azeb, Andrew Tavarez 06:35:05 RESPIRATORY VIRAL PANEL + 2021-06-07 Azeb, Andrew NICOLAS And naomie COVID-19, NASOPHARYNGEAL SWAB 06:02:00 COMPREHENSIVE METABOLIC PANEL 2021-06-07 Azeb, Andrew Tavarez 05:12:00 MAGNESIUM LEVEL 2021-06-07 Azeb, Andrew Tavarez 05:12:00 PHOSPHORUS LEVEL 2021-06-07 Azeb, Andrew Tavarez 05:12:00 LACTATE DEHYDROGENASE 2021-06-07 Azeb, Andrew Troncosoo n 05:12:00 AMYLASE LEVEL 2021-06-07 Azeb, Andrew Tavarez 05:12:00 LIPASE LEVEL 2021-06-07 Azeb, Andrew Tavarez 05:12:00 GLUCOSE LEVEL 2021-06-07 Azeb, Andrew Tavarez 05:12:00 BLOOD UREA NITROGEN 2021-06-07 Azeb, Andrew Tavarez 05:12:00 ELECTROLYTE PANEL 2021-06-07 Azeb, Andrew Tavarez 05:12:00 SERUM CREATININE 2021-06-07 Azeb, Andrew Tavarez 05:12:00 .GLOMERULAR FILTRATION RATE 2021-06-07 Andrew Bowie MD 05:12:00 CALCIUM LEVEL TOTAL 2021-06-07 Azeb, Andrew Tavarez 05:12:00 ALBUMIN LEVEL 2021-06-07 Azeb, Andrew Tavarez 05:12:00 ALKALINE PHOSPHATASE 2021-06-07 Azeb, Andrew Tavarez 05:12:00 ALANINE AMINOTRANSFERASE 2021-06-07 Azeb, Andrew NICOLAS Servando rson 05:12:00 ASPARTATE AMINOTRANSFERASE 2021-06-07 Azeb, Andrew Allen derson 05:12:00 TOTAL PROTEIN 2021-06-07 Azeb, Andrew Tavarez 05:12:00 FRACTIONATED BILIRUBIN 2021-06-07 Azeb, Andrew Troncoso on 05:12:00 Results CBC 2021-06-07 Azeb, Andrew Tavarez 05:12:00 MANUAL DIFFERENTIAL 2021-06-07 Azeb, Andrew Tavarez 05:12:00 PROCALCITONIN 2021-06-07 Azeb, Andrew Tavarez 05:12:00 HEMOGLOBIN A1C 2021-06-07 Azeb, Andrew Tavarez 05:12:00 COVID-19 (SARS-COV-2) PCR 2021-06-05 Sol Sanchez MD ASYMPTOMATIC 18:29:00 GENERAL LABORATORY ADD ON TEST 2021-06-05 Dahlia Moncada 14:16:00 COMPREHENSIVE METABOLIC PANEL 2021-06-05 Christopehr Barnett MD 11:41:00 COMPLETE BLOOD COUNT W/ 2021-06-05 Christopher Barnett MD nderson DIFFERENTIAL 11:41:00 GLUCOSE LEVEL 2021-06-05 Christopher Barnett MD 11:41:00 BLOOD UREA NITROGEN 2021-06-05 Christopher Barnett MD Arsenio son 11:41:00 ELECTROLYTE PANEL 2021-06-05 Christopher Barnett MD Anderso n 11:41:00 SERUM CREATININE 2021-06-05 Christopher Barnett MD 11:41:00 .GLOMERULAR FILTRATION RATE 2021-06-05 Christopher Barnett MD 11:41:00 CALCIUM LEVEL TOTAL 2021-06-05 Christopher Barnett MD Arsenio son 11:41:00 ALBUMIN LEVEL 2021-06-05 Christopher Barnett MD 11:41:00 ALKALINE PHOSPHATASE 2021-06-05 Christopher Barnett MD Servando rson 11:41:00 ALANINE AMINOTRANSFERASE 2021-06-05 Christopher Barnett MD 11:41:00 ASPARTATE AMINOTRANSFERASE 2021-06-05 Christopher Barnett 11:41:00 TOTAL PROTEIN 2021-06-05 Christopher Barnett MD 11:41:00 FRACTIONATED BILIRUBIN 2021-06-05 Christopher Barnett MDson 11:41:00 Results CBC 2021-06-05 Christopher Barnett MD 11:41:00 MANUAL DIFFERENTIAL 2021-06-05 Christopher Barnett MD Arsenio son 11:41:00 CANCER ANTIGEN 19-9 2021-06-05 Christopher Barnett MD Arsenio son 11:41:00 POC CHEM 8 2021-05-31 Christopher Barnett MD 15:26:00 IR FL PORT PLACEMENT 2021-05-31 Christopher Barnett MD Servando rson 14:26:00 POC CHEM 8 2021-05-31 Christopher Barnett MD 12:35:00 COMPLETE BLOOD COUNT W/ 2021-05-29 Donya Scott MDson DIFFERENTIAL 14:28:00 CARBON DIOXIDE LEVEL 2021-05-29 Donya Scott MD Arsenio son 14:28:00 CHLORIDE LEVEL 2021-05-29 Donya Scott MD 14:28:00 SODIUM LEVEL 2021-05-29 Donya Scott MD 14:28:00 POTASSIUM LEVEL 2021-05-29 Donya Scott MD 14:28:00 SERUM CREATININE 2021-05-29 Donya Scott MD 14:28:00 BLOOD UREA NITROGEN 2021-05-29 Donya Scotters on 14:28:00 PROTHROMBIN TIME 2021-05-29 Donya Scott MD 14:28:00 GLUCOSE, RANDOM 2021-05-29 Donya Scott MD 14:28:00 TYPE AND SCREEN 2021-05-29 Donya Scott MD 14:28:00 CONFIRM ABORH TYPE 2021-05-29 Donya Scott MD Anderso n 14:28:00 Results CBC 2021-05-29 Donya Scott MD 14:28:00 MANUAL DIFFERENTIAL 2021-05-29 Donya Scott MD Aba on 14:28:00 SERUM CREATININE 2021-05-29 Donya Scott MD 14:28:00 .GLOMERULAR FILTRATION RATE 2021-05-29 Donya Scott 14:28:00 ABORH 2021-05-29 Donya Scott MD 14:28:00 ANTIBODY SCREEN 2021-05-29 Donya Scott MD 14:28:00 ANION GAP 2021-05-29 Donya Scott MD 14:28:00 CLOT EXPIRATION DATE 2021-05-29 Donya Scott MD Arsenio son 14:28:00 TMP INTERPRETATION ANTIBODY 2021-05-29 Donya Scott SCREEN NEGATIVE 14:28:00 COVID-19 (SARS-COV-2) PCR 2021-05-29 Dahlia Moncada MD ASYMPTOMATIC 13:37:00 COMPLETE BLOOD COUNT W/ 2021-05-24 Christopher Barnett MD nderson DIFFERENTIAL 13:12:00 COMPREHENSIVE METABOLIC PANEL 2021-05-24 Christopher Barnett MD 13:12:00 LACTATE DEHYDROGENASE 2021-05-24 Christopher Barnett MD And erson 13:12:00 MAGNESIUM LEVEL 2021-05-24 Christopher Barnett MD 13:12:00 PHOSPHORUS LEVEL 2021-05-24 Christopher Barnett MD 13:12:00 CARCINOEMBRYONIC ANTIGEN 2021-05-24 Christopher Barnett MD 13:12:00 CANCER ANTIGEN 19-9 2021-05-24 Christopher Barnett MD Arsenio son 13:12:00 CANCER ANTIGEN 125 2021-05-24 Christopher Barnett MD on 13:12:00 Results CBC 2021-05-24 Christopher Barnett MD 13:12:00 MANUAL DIFFERENTIAL 2021-05-24 Christopher Barnett MD Arsenio son 13:12:00 GLUCOSE LEVEL 2021-05-24 Christopher Barnett MD 13:12:00 BLOOD UREA NITROGEN 2021-05-24 Chrisotpher Barnett MD Arsenio son 13:12:00 ELECTROLYTE PANEL 2021-05-24 Christopher Barnett MD Anderso n 13:12:00 SERUM CREATININE 2021-05-24 Christopher Barnett MD 13:12:00 .GLOMERULAR FILTRATION RATE 2021-05-24 Christopher Barnett MD 13:12:00 CALCIUM LEVEL TOTAL 2021-05-24 Christopher Barnett MD Arsenio son 13:12:00 ALBUMIN LEVEL 2021-05-24 Christopher Barnett MD 13:12:00 ALKALINE PHOSPHATASE 2021-05-24 Christopher Barnett MD Servando rson 13:12:00 ALANINE AMINOTRANSFERASE 2021-05-24 Christopher Barnett MD 13:12:00 ASPARTATE AMINOTRANSFERASE 2021-05-24 Christopher Barnett 13:12:00 TOTAL PROTEIN 2021-05-24 Christopher Barnett MD 13:12:00 FRACTIONATED BILIRUBIN 2021-05-24 Christopher Barnett MDson 13:12:00 POC GLUCOSE SCREEN 2021-05-23 Elizabeth Aguilar MD 19:36:00 POC GLUCOSE SCREEN 2021-05-23 Elizabeth Aguilar MD 15:05:00 COMPLETE BLOOD COUNT W/ 2021-05-23 Rivka Bull MD Arsenio son DIFFERENTIAL 05:46:00 COMPREHENSIVE METABOLIC PANEL 2021-05-23 Rivka Bull MD 05:46:00 PHOSPHORUS LEVEL 2021-05-23 Rivka Bull MD 05:46:00 MAGNESIUM LEVEL 2021-05-23 Rivka Bull MD 05:46:00 Results CBC 2021-05-23 Rivka Bull MD 05:46:00 MANUAL DIFFERENTIAL 2021-05-23 Rivka Bull MD 05:46:00 GLUCOSE LEVEL 2021-05-23 Rivka Bull MD 05:46:00 BLOOD UREA NITROGEN 2021-05-23 Ml, Rivka Tavarez 05:46:00 ELECTROLYTE PANEL 2021-05-23 Ml, Rivka Tavarez 05:46:00 SERUM CREATININE 2021-05-23 Ml, Rivka Tavarez 05:46:00 .GLOMERULAR FILTRATION RATE 2021-05-23 Rivka Bull MD nderson 05:46:00 CALCIUM LEVEL TOTAL 2021-05-23 Ml, Rivka Tavarez 05:46:00 ALBUMIN LEVEL 2021-05-23 Ml, Rivka Tavarez 05:46:00 ALKALINE PHOSPHATASE 2021-05-23 Ml, Rivka Tavarez 05:46:00 ALANINE AMINOTRANSFERASE 2021-05-23 Rivka Bull MD rson 05:46:00 ASPARTATE AMINOTRANSFERASE 2021-05-23 Ml, Rivka salcedoson 05:46:00 TOTAL PROTEIN 2021-05-23 Rivka Bull MD 05:46:00 FRACTIONATED BILIRUBIN 2021-05-23 Rivka Bull MD on 05:46:00 POC GLUCOSE SCREEN 2021-05-23 Micheline, Ed MD Tavarez 02:37:00 POC GLUCOSE SCREEN 2021-05-23 Micheline, Ed MD Tavarez 00:30:00 POC GLUCOSE SCREEN 2021-05-22 Micheline, Ed MD Tavarez 22:54:00 IR EXCHANGE OF BILIARY DRAINAGE 2021-05-22 Nash Day MD CATHETER 22:40:41 POC GLUCOSE SCREEN 2021-05-22 Micheline Ed MD Tavarez 17:37:00 POC GLUCOSE SCREEN 2021-05-22 Micheline Ed MD Tavarez 12:44:00 COMPLETE BLOOD COUNT W/ 2021-05-22 Rivka Buller son DIFFERENTIAL 05:29:00 COMPREHENSIVE METABOLIC PANEL 2021-05-22 Rivka Bull MD 05:29:00 PHOSPHORUS LEVEL 2021-05-22 Rivka Bull MD 05:29:00 MAGNESIUM LEVEL 2021-05-22 Rivka Bull MD 05:29:00 PROTHROMBIN TIME 2021-05-22 Elenita Chavez MD 05:29:00 APTT 2021-05-22 Elenita Chavez MD 05:29:00 Results CBC 2021-05-22 Rivka Bull MD 05:29:00 MANUAL DIFFERENTIAL 2021-05-22 Ml, Rivka Tavarez 05:29:00 GLUCOSE LEVEL 2021-05-22 Rivka Bull MD 05:29:00 BLOOD UREA NITROGEN 2021-05-22 Ml, Rivka Tavarez 05:29:00 ELECTROLYTE PANEL 2021-05-22 Rivka Bull MD 05:29:00 SERUM CREATININE 2021-05-22 Ml, Rivka Tavarez 05:29:00 .GLOMERULAR FILTRATION RATE 2021-05-22 Rivka Bull MD nderson 05:29:00 CALCIUM LEVEL TOTAL 2021-05-22 Ml, Rivka Tavarez 05:29:00 ALBUMIN LEVEL 2021-05-22 Rivka Bull MD 05:29:00 ALKALINE PHOSPHATASE 2021-05-22 Rivka Bull MD 05:29:00 ALANINE AMINOTRANSFERASE 2021-05-22 Rivka Bull MD rson 05:29:00 ASPARTATE AMINOTRANSFERASE 2021-05-22 Rivka Bull MD derson 05:29:00 TOTAL PROTEIN 2021-05-22 Rivka Bull MD 05:29:00 FRACTIONATED BILIRUBIN 2021-05-22 Rivka Bull MD on 05:29:00 POC GLUCOSE SCREEN 2021-05-22 Tomasz Tejeda MD 01:57:00 POC GLUCOSE SCREEN 2021-05-21 Tomasz Tejeda MD 21:28:00 POC GLUCOSE SCREEN 2021-05-21 Tomasz Tejeda MD 17:18:00 POC GLUCOSE SCREEN 2021-05-21 Tomasz Tejeda MD 12:38:00 COMPLETE BLOOD COUNT W/ 2021-05-21 Rivka Bull MD Arsenio son DIFFERENTIAL 05:59:00 COMPREHENSIVE METABOLIC PANEL 2021-05-21 Rivka Bull MD 05:59:00 PHOSPHORUS LEVEL 2021-05-21 Rivka Bull MD 05:59:00 MAGNESIUM LEVEL 2021-05-21 Rivka Bull MD 05:59:00 Results CBC 2021-05-21 Rivka Bull MD 05:59:00 MANUAL DIFFERENTIAL 2021-05-21 Rivka Bull MD 05:59:00 GLUCOSE LEVEL 2021-05-21 Rivka Bull MD 05:59:00 BLOOD UREA NITROGEN 2021-05-21 Rivka Bull MD 05:59:00 ELECTROLYTE PANEL 2021-05-21 Rivka Bull MD 05:59:00 SERUM CREATININE 2021-05-21 Rivka Bull MD 05:59:00 .GLOMERULAR FILTRATION RATE 2021-05-21 Rivka Bull MD nderson 05:59:00 CALCIUM LEVEL TOTAL 2021-05-21 Rivka Bull MD 05:59:00 ALBUMIN LEVEL 2021-05-21 Rivka Bull MD 05:59:00 ALKALINE PHOSPHATASE 2021-05-21 Rivka Bull MD 05:59:00 ALANINE AMINOTRANSFERASE 2021-05-21 Rivka Bull MD rson 05:59:00 ASPARTATE AMINOTRANSFERASE 2021-05-21 Rivka Bull MD derson 05:59:00 TOTAL PROTEIN 2021-05-21 Rivka Bull MD 05:59:00 FRACTIONATED BILIRUBIN 2021-05-21 Rivka Bull MD on 05:59:00 POC GLUCOSE SCREEN 2021-05-21 Tomasz Tejeda MD 03:10:00 POC GLUCOSE SCREEN 2021-05-20 Tomasz Tejeda MD 22:32:00 POC GLUCOSE SCREEN 2021-05-20 Tomasz Tejeda MD 18:43:00 POC GLUCOSE SCREEN 2021-05-20 Tomasz Tejeda MD 13:01:00 COMPLETE BLOOD COUNT W/ 2021-05-20 Rivka Bull MD Arsenio son DIFFERENTIAL 05:21:00 COMPREHENSIVE METABOLIC PANEL 2021-05-20 Rivka Bull MD 05:21:00 PHOSPHORUS LEVEL 2021-05-20 Rivka Bull MD 05:21:00 MAGNESIUM LEVEL 2021-05-20 Rivka Bull MD 05:21:00 Results CBC 2021-05-20 Rivka Bull MD 05:21:00 MANUAL DIFFERENTIAL 2021-05-20 Rivka Bull MD 05:21:00 GLUCOSE LEVEL 2021-05-20 Rivka Bull MD 05:21:00 BLOOD UREA NITROGEN 2021-05-20 Rivka Bull MD 05:21:00 ELECTROLYTE PANEL 2021-05-20 Rivka Bull MD 05:21:00 SERUM CREATININE 2021-05-20 Rivak Bull MD 05:21:00 .GLOMERULAR FILTRATION RATE 2021-05-20 Rivka Bull MD ndersliset 05:21:00 CALCIUM LEVEL TOTAL 2021-05-20 Rivka Bull MD 05:21:00 ALBUMIN LEVEL 2021-05-20 Rivka Bull MD 05:21:00 ALKALINE PHOSPHATASE 2021-05-20 Rivka Bull MD 05:21:00 ALANINE AMINOTRANSFERASE 2021-05-20 Rivka Bull MD rson 05:21:00 ASPARTATE AMINOTRANSFERASE 2021-05-20 Rivka Bull MD derson 05:21:00 TOTAL PROTEIN 2021-05-20 Rivka Bull MD 05:21:00 FRACTIONATED BILIRUBIN 2021-05-20 Rivka Bull MD Aba on 05:21:00 POC GLUCOSE SCREEN 2021-05-20 Tomasz Teejda MD 02:36:00 POC GLUCOSE SCREEN 2021-05-19 Tomasz Tejeda MD 21:57:00 POC GLUCOSE SCREEN 2021-05-19 Tomasz Tejeda MD 17:39:00 POC GLUCOSE SCREEN 2021-05-19 Tomasz Tejeda MD 12:29:00 COMPLETE BLOOD COUNT W/ 2021-05-19 Rivka Bull MD Arsenio son DIFFERENTIAL 05:46:00 COMPREHENSIVE METABOLIC PANEL 2021-05-19 Rivka Bull MD 05:46:00 PHOSPHORUS LEVEL 2021-05-19 Rivka Bull MD 05:46:00 MAGNESIUM LEVEL 2021-05-19 Rivka Bull MD 05:46:00 Results CBC 2021-05-19 Rivka Bull MD 05:46:00 MANUAL DIFFERENTIAL 2021-05-19 Rivka Bull MD 05:46:00 GLUCOSE LEVEL 2021-05-19 Rivka Bull MD 05:46:00 BLOOD UREA NITROGEN 2021-05-19 Rivka Bull MD 05:46:00 ELECTROLYTE PANEL 2021-05-19 Rivka Bull MD 05:46:00 SERUM CREATININE 2021-05-19 Rivka Bull MD 05:46:00 .GLOMERULAR FILTRATION RATE 2021-05-19 Rivka Bull MD 05:46:00 CALCIUM LEVEL TOTAL 2021-05-19 Rivka Bull MD 05:46:00 ALBUMIN LEVEL 2021-05-19 Rivka Bull MD 05:46:00 ALKALINE PHOSPHATASE 2021-05-19 Rivka Bull MD 05:46:00 ALANINE AMINOTRANSFERASE 2021-05-19 Rivka Bull MD rsliset 05:46:00 ASPARTATE AMINOTRANSFERASE 2021-05-19 Rivka Bull MD 05:46:00 TOTAL PROTEIN 2021-05-19 Rivka Bull MD 05:46:00 FRACTIONATED BILIRUBIN 2021-05-19 Rivka Bull MD on 05:46:00 POC GLUCOSE SCREEN 2021-05-19 Tomasz Tejeda MD 02:11:00 POC GLUCOSE SCREEN 2021-05-18 Tomasz Tejeda MD 22:45:00 POC GLUCOSE SCREEN 2021-05-18 Tomasz Tejeda MD 17:41:00 URINE CULTURE 2021-05-18 Nash Day MD 16:43:00 URINALYSIS WITH MICROSCOPIC IF 2021-05-18 Nash Day INDICATED 16:43:00 BLOODCULTURE 2021-05-18 Nash Day MD 15:59:00 MAGNESIUM LEVEL 2021-05-18 Peter Dos Santos MD 15:59:00 PHOSPHORUS LEVEL 2021-05-18 Peter Dos aSntos MD 15:59:00 BASIC METABOLIC PANEL, CALCIUM 2021-05-18 Peter Dos Santos MD IONIZED 15:59:00 GLUCOSE LEVEL 2021-05-18 Peter Dos Santos MD 15:59:00 BLOOD UREA NITROGEN 2021-05-18 Peter Dos Santos MD on 15:59:00 ELECTROLYTE PANEL 2021-05-18 Peter Dos Santos MD 15:59:00 SERUM CREATININE 2021-05-18 Peter Dos Santos MD 15:59:00 .GLOMERULAR FILTRATION RATE 2021-05-18 Peter Dos Santos 15:59:00 CALCIUM IONIZED, VENOUS 2021-05-18 Peter Dos Santos MD 15:59:00 XR CHEST 1 VW 2021-05-18 Nash Day MD 15:57:30 ECHOCARDIOGRAM 2D COMPLETE 2021-05-18 Rivka Bull MD 14:29:04 COMPLETE BLOOD COUNT W/ 2021-05-18 Rivka Bull MD Arsenio son DIFFERENTIAL 05:33:00 COMPREHENSIVE METABOLIC PANEL 2021-05-18 Rivka Bull MD 05:33:00 PHOSPHORUS LEVEL 2021-05-18 Rivka Bull MD 05:33:00 MAGNESIUM LEVEL 2021-05-18 Rivka Bull MD 05:33:00 Results CBC 2021-05-18 Rivka Bull MD 05:33:00 MANUAL DIFFERENTIAL 2021-05-18 Rivka Bull MD 05:33:00 GLUCOSE LEVEL 2021-05-18 Rivka Bull MD 05:33:00 BLOOD UREA NITROGEN 2021-05-18 Rivka Bull MD 05:33:00 ELECTROLYTE PANEL 2021-05-18 Rivka Bull MD 05:33:00 SERUM CREATININE 2021-05-18 Rivka Bull MD 05:33:00 .GLOMERULAR FILTRATION RATE 2021-05-18 Rivka Bull MD nderson 05:33:00 CALCIUM LEVEL TOTAL 2021-05-18 Rivka Bull MD 05:33:00 ALBUMIN LEVEL 2021-05-18 Rivka Bull MD 05:33:00 ALKALINE PHOSPHATASE 2021-05-18 Rivka Bull MD 05:33:00 ALANINE AMINOTRANSFERASE 2021-05-18 Rivka Bull MD Servando rson 05:33:00 ASPARTATE AMINOTRANSFERASE 2021-05-18 Rivka Bull MD 05:33:00 TOTAL PROTEIN 2021-05-18 Rivka Bull MD 05:33:00 FRACTIONATED BILIRUBIN 2021-05-18 Rivka Bull MD on 05:33:00 POC GLUCOSE SCREEN 2021-05-18 Tomasz Tejeda MD 04:27:00 POC GLUCOSE SCREEN 2021-05-18 Tomasz Tejeda MD 02:01:00 POC GLUCOSE SCREEN 2021-05-17 Tomasz Tejeda MD 22:59:00 IR EXCHANGE OF BILIARY DRAINAGE 2021-05-17 Rivka Bull MD CATHETER 21:56:51 POC GLUCOSE SCREEN 2021-05-17 Tomasz Tejeda MD 18:19:00 POC GLUCOSE SCREEN 2021-05-17 Tomasz Tejeda MD 13:20:00 COMPLETE BLOOD COUNT W/ 2021-05-17 Rivka Bull MD Arsenio son DIFFERENTIAL 05:24:00 COMPREHENSIVE METABOLIC PANEL 2021-05-17 Rivka Bull MD 05:24:00 PHOSPHORUS LEVEL 2021-05-17 Rivka Bull MD 05:24:00 MAGNESIUM LEVEL 2021-05-17 Rivka Bull MD 05:24:00 Results CBC 2021-05-17 Rivka Bull MD 05:24:00 MANUAL DIFFERENTIAL 2021-05-17 Rivka Bull MD 05:24:00 GLUCOSE LEVEL 2021-05-17 Rivka Bull MD 05:24:00 BLOOD UREA NITROGEN 2021-05-17 Rivka Bull MD 05:24:00 ELECTROLYTE PANEL 2021-05-17 Rivka Bull MD 05:24:00 SERUM CREATININE 2021-05-17 Rivka Bull MD 05:24:00 .GLOMERULAR FILTRATION RATE 2021-05-17 Rivka Bull MD nderson 05:24:00 CALCIUM LEVEL TOTAL 2021-05-17 Rivka Bull MD 05:24:00 ALBUMIN LEVEL 2021-05-17 Rivka Bull MD 05:24:00 ALKALINE PHOSPHATASE 2021-05-17 Rivka Bull MD 05:24:00 ALANINE AMINOTRANSFERASE 2021-05-17 Rivka Bull MD rson 05:24:00 ASPARTATE AMINOTRANSFERASE 2021-05-17 Rivka Bull MDson 05:24:00 TOTAL PROTEIN 2021-05-17 Rivka Bull MD 05:24:00 FRACTIONATED BILIRUBIN 2021-05-17 Rivka Bull MD Aba on 05:24:00 POC GLUCOSE SCREEN 2021-05-16 Tomasz Tejeda MD 22:58:00 POC GLUCOSE SCREEN 2021-05-16 Tomasz Tejeda MD 16:54:00 POC GLUCOSE SCREEN 2021-05-16 Tomasz Tejeda MD 10:50:00 COMPLETE BLOOD COUNT W/ 2021-05-16 Rivka Bull MD son DIFFERENTIAL 05:14:00 COMPREHENSIVE METABOLIC PANEL 2021-05-16 Rivka Bull MD 05:14:00 PHOSPHORUS LEVEL 2021-05-16 Rivka Bull MD 05:14:00 MAGNESIUM LEVEL 2021-05-16 Rivka Bull MD 05:14:00 PROTHROMBIN TIME 2021-05-16 Rivka Bull MD 05:14:00 THYROID STIMULATING HORMONE 2021-05-16 Rivka Bull MD nderson 05:14:00 THYROXINE 2021-05-16 Rivka Bull MD 05:14:00 Results CBC 2021-05-16 Rivka Bull MD 05:14:00 MANUAL DIFFERENTIAL 2021-05-16 Rivka Bull MD 05:14:00 GLUCOSE LEVEL 2021-05-16 Rivka Bull MD 05:14:00 BLOOD UREA NITROGEN 2021-05-16 Rivka Bull MD 05:14:00 ELECTROLYTE PANEL 2021-05-16 Rivka Bull MD 05:14:00 SERUM CREATININE 2021-05-16 Rivka Bull MD 05:14:00 .GLOMERULAR FILTRATION RATE 2021-05-16 Rivka Bull MD nderson 05:14:00 CALCIUM LEVEL TOTAL 2021-05-16 Rivka Bull MD 05:14:00 ALBUMIN LEVEL 2021-05-16 Rivka Bull MD 05:14:00 ALKALINE PHOSPHATASE 2021-05-16 Rivka Bull MD 05:14:00 ALANINE AMINOTRANSFERASE 2021-05-16 Rivka Bull MD rsliset 05:14:00 ASPARTATE AMINOTRANSFERASE 2021-05-16 Rivka Bull MDson 05:14:00 TOTAL PROTEIN 2021-05-16 Rivka Bull MD 05:14:00 FRACTIONATED BILIRUBIN 2021-05-16 Rivka Bull MD on 05:14:00 POC GLUCOSE SCREEN 2021-05-16 Tomasz Tejeda MD 04:56:00 POC GLUCOSE SCREEN 2021-05-15 Tomasz Tejeda MD 22:12:00 URINE CULTURE 2021-05-15 Renetta Zayas MD 12:32:00 INFLUENZA A/B + COVID-19 2021-05-15 Merry Craft MD Servando rson ASYMPTOMATIC-L 12:32:00 URINALYSIS WITH MICROSCOPIC IF 2021-05-15 Vu, Renetta Tavarez INDICATED 12:32:00 CT ABDOMEN PELVIS W CONTRAST 2021-05-15 Vu, Renetta Tavarez 11:42:33 COMPLETE BLOOD COUNT W/ 2021-05-15 Vu, Renetta Hindser son DIFFERENTIAL 09:51:00 COMPREHENSIVE METABOLIC PANEL 2021-05-15 Vu, Renetta Tavarez 09:51:00 MAGNESIUM LEVEL 2021-05-15 Vu, Renetta Tavarez 09:51:00 PHOSPHORUS LEVEL 2021-05-15 Vu, Renetta Tavarez 09:51:00 LACTATE DEHYDROGENASE 2021-05-15 Vu, Renetta Worley n 09:51:00 AMYLASE LEVEL 2021-05-15 Vu, Renetta Tavarez 09:51:00 LIPASE LEVEL 2021-05-15 Vu, Renetta Tavarez 09:51:00 Results CBC 2021-05-15 Vu, Renetta Tavarez 09:51:00 MANUAL DIFFERENTIAL 2021-05-15 Vu, Renetta Tavarez 09:51:00 GLUCOSE LEVEL 2021-05-15 Vu, Renetta Tavarez 09:51:00 BLOOD UREA NITROGEN 2021-05-15 Vu, Renetta Tavarez 09:51:00 ELECTROLYTE PANEL 2021-05-15 Vu, Renetta Tavarez 09:51:00 SERUM CREATININE 2021-05-15 Vu, Renetta Tavarez 09:51:00 .GLOMERULAR FILTRATION RATE 2021-05-15 Vu, Renetta Salcido nderson 09:51:00 CALCIUM LEVEL TOTAL 2021-05-15 Vu, Renetta Tavarez 09:51:00 ALBUMIN LEVEL 2021-05-15 Vu, Renetta Tavarez 09:51:00 ALKALINE PHOSPHATASE 2021-05-15 Vu, Renetta Tavarez 09:51:00 ALANINE AMINOTRANSFERASE 2021-05-15 Vu, Renetta Al rsliset 09:51:00 ASPARTATE AMINOTRANSFERASE 2021-05-15 Vu, Renetta mcbride 09:51:00 TOTAL PROTEIN 2021-05-15 Vu, Renetta Tavarez 09:51:00 FRACTIONATED BILIRUBIN 2021-05-15 Renetta Zayas MD on 09:51:00 COMPLETE BLOOD COUNT W/ 2021-05-11 Christopher Barnett MD A nderson DIFFERENTIAL 13:02:00 COMPREHENSIVE METABOLIC PANEL 2021-05-11 Christopher Barnett MD 13:02:00 LACTATE DEHYDROGENASE 2021-05-11 Christopher Barnett MD And erson 13:02:00 CANCER ANTIGEN 19-9 2021-05-11 Christopher Barnett MD Arsenio son 13:02:00 Results CBC 2021-05-11 Christopher Barnett MD 13:02:00 MANUAL DIFFERENTIAL 2021-05-11 Christopher Barnett MD Arsenio son 13:02:00 GLUCOSE LEVEL 2021-05-11 Christopher Barnett MD 13:02:00 BLOOD UREA NITROGEN 2021-05-11 Christopher Barnett MD Arsenio son 13:02:00 ELECTROLYTE PANEL 2021-05-11 [facility] 13[facility]02:00 SERUM CREATININE 2021-05-11 Christopher Barnett MD 13:02:00 .GLOMERULAR FILTRATION RATE 2021-05-11 Christopher Barnett MD 13:02:00 CALCIUM LEVEL TOTAL 2021-05-11 Christopher Barnett MD Arsenio son 13:02:00 ALBUMIN LEVEL 2021-05-11 Christopher Barnett MD 13:02:00 ALKALINE PHOSPHATASE 2021-05-11 Christopher Barnett MD Servando rson 13:02:00 ALANINE AMINOTRANSFERASE 2021-05-11 Christopher Barnett MD 13:02:00 ASPARTATE AMINOTRANSFERASE 2021-05-11 Christopher Barnett 13:02:00 TOTAL PROTEIN 2021-05-11 Christopher Barnett MD 13:02:00 FRACTIONATED BILIRUBIN 2021-05-11 Christopher Barnett MD 13:02:00 POC GLUCOSE SCREEN 2021-05-04 Everett Fuller MD 12:21:00 BASIC METABOLIC PANEL, CALCIUM 2021-05-04 Loida Moeller TOTAL 11:45:00 Ruben Hill COMPLETE BLOOD COUNT W/ 2021-05-04 MD Sajan Arsenio son DIFFERENTIAL 11:45:00 Ruben Hill LACTATE DEHYDROGENASE 2021-05-04 MD Sajan Andluizo n 11:45:00 Ruben Hill MAGNESIUM LEVEL 2021-05-04 MD Corby Moeller 11:45:00 Ruben Hill PHOSPHORUS LEVEL 2021-05-04 MD Corby Moeller 11:45:00 Ruben Hill HEPATIC FUNCTION PANEL 2021-05-04 Everett Fuller MD on 11:45:00 APTT 2021-05-04 Batsheva Elkins MD 11:45:00 GLUCOSE LEVEL 2021-05-04 MD Corby Moeller 11:45:00 Ruben Hill BLOOD UREA NITROGEN 2021-05-04 MD Corby Moeller 11:45:00 Ruben Hill ELECTROLYTE PANEL 2021-05-04 MD Corby Moeller 11:45:00 Ruben Hill SERUM CREATININE 2021-05-04 MD Corby Moeller 11:45:00 Ruben Hill .GLOMERULAR FILTRATION RATE 2021-05-04 MD Loly Moeller nderson 11:45:00 Ruben Hill CALCIUM LEVEL TOTAL 2021-05-04 MD Corby Moeller 11:45:00 Ruben Hill ALBUMIN LEVEL 2021-05-04 Everett Fuller MD 11:45:00 ALKALINE PHOSPHATASE 2021-05-04 Everett Fuller MD 11:45:00 ALANINE AMINOTRANSFERASE 2021-05-04 Everett Fuller MD Servando rson 11:45:00 ASPARTATE AMINOTRANSFERASE 2021-05-04 Everett Fuller MD 11:45:00 TOTAL PROTEIN 2021-05-04 Everett Fuller MD 11:45:00 FRACTIONATED BILIRUBIN 2021-05-04 Everett Fuller MD on 11:45:00 Results CBC 2021-05-04 MD Corby Moeller 11:45:00 Ruben Hill MANUAL DIFFERENTIAL 2021-05-04 MD Corby Moeller 11:45:00 Ruben Hill MRI CERVICAL THORACIC LUMBAR 2021-05-04 Juanjo Johnson MD SPINE W WO CONTRAST 08:19:14 POC GLUCOSE SCREEN 2021-05-04 Everett Fuller MD 02:28:00 POC GLUCOSE SCREEN 2021-05-03 Everett Fuller MD 22:43:00 POC GLUCOSE SCREEN 2021-05-03 Everett Fuller MD 19:04:00 GENERAL LABORATORY ADD ON TEST 2021-05-03 Everett Fuller 15:53:00 ALPHA FETOPROTEIN TUMOR MARKER 2021-05-03 Everett Fuller 13:53:00 CANCER ANTIGEN 19-9 2021-05-03 Everett Fuller MD 13:53:00 VITAMIN B12 LEVEL 2021-05-03 Everett Fuller MD 13:53:00 FOLATE, RED BLOOD CELLS 2021-05-03 Everett Fuller MD Arsenio son 13:53:00 BASIC METABOLIC PANEL, CALCIUM 2021-05-03 Loida Moeller TOTAL 13:53:00 Ruben Hill COMPLETE BLOOD COUNT W/ 2021-05-03 MD Sajan Arsenio son DIFFERENTIAL 13:53:00 Ruben Hill LACTATE DEHYDROGENASE 2021-05-03 MD Sajan Anderso n 13:53:00 Ruben Hill MAGNESIUM LEVEL 2021-05-03 MD Corby Moeller 13:53:00 Ruben Hill PHOSPHORUS LEVEL 2021-05-03 MD Corby Moeller 13:53:00 Ruben Hill HEMOGLOBIN A1C 2021-05-03 Monica Bhat MD 13:53:00 THYROID STIMULATING HORMONE 2021-05-03 Monica Bhat MD nderson 13:53:00 GLUCOSE LEVEL 2021-05-03 MD Corby Moeller 13:53:00 Ruben Hill BLOOD UREA NITROGEN 2021-05-03 MD Corby Moeller 13:53:00 Ruben Hill ELECTROLYTE PANEL 2021-05-03 MD Corby Moeller 13:53:00 Ruben Hill SERUM CREATININE 2021-05-03 MD Corby Moeller 13:53:00 Ruben Hill .GLOMERULAR FILTRATION RATE 2021-05-03 MD Loly Moeller nderson 13:53:00 Ruben Hill CALCIUM LEVEL TOTAL 2021-05-03 MD Corby Moeller 13:53:00 Ruben Hill Results CBC 2021-05-03 MD Corby Moeller 13:53:00 Ruben Hill MANUAL DIFFERENTIAL 2021-05-03 MD Corby Moeller 13:53:00 Ruben Hill FREE THYROXINE 2021-05-03 Everett Fuller MD 13:53:00 HEPATIC FUNCTION PANEL 2021-05-03 Everett Fuller MD on 13:53:00 ALBUMIN LEVEL 2021-05-03 Everett Fuller MD 13:53:00 ALANINE AMINOTRANSFERASE 2021-05-03 Everett Fuller MD Servando rson 13:53:00 ASPARTATE AMINOTRANSFERASE 2021-05-03 Everett Fuller MDson 13:53:00 TOTAL PROTEIN 2021-05-03 Everett Fuller MD 13:53:00 FRACTIONATED BILIRUBIN 2021-05-03 Everett Fuller MD on 13:53:00 ALKALINE PHOSPHATASE 2021-05-03 Everett Fuller MD 13:53:00 FREE T3 2021-05-03 MD Corby Moeller 13:53:00 Ruben Hill POC GLUCOSE SCREEN 2021-05-03 Everett Fuller MD 13:09:00 SODIUM URINE 2021-05-03 Monica Bhat MD 03:12:00 POTASSIUM LEVEL URINE 2021-05-03 Monica Bhat MD Andluizo n 03:12:00 CREATININE URINE, RANDOM 2021-05-03 Monica Bhat MD Servando rson 03:12:00 POC GLUCOSE SCREEN 2021-05-03 Everett Fuller MD 03:03:00 POC GLUCOSE SCREEN 2021-05-03 Everett Fuller MD 01:11:00 EKG, 12-LEAD (PORTABLE) 2021-05-03 Rebecca Garcias MD Arsenio son 00:00:00 POC GLUCOSE SCREEN 2021-05-02 Everett Fuller MD 19:36:00 POC GLUCOSE SCREEN 2021-05-02 Everett Fuller MD 13:30:00 ALANINE AMINOTRANSFERASE 2021-05-02 MD Sajan Servando rson 12:21:00 Ruben Hill ALKALINE PHOSPHATASE 2021-05-02 MD Corby Moeller 12:21:00 Ruben Hill ASPARTATE AMINOTRANSFERASE 2021-05-02 MD Tiffany Moeller 12:21:00 Ruben Hill BASIC METABOLIC PANEL, CALCIUM 2021-05-02 Loida Moeller TOTAL 12:21:00 Ruben Hill COMPLETE BLOOD COUNT W/ 2021-05-02 MD Sajan Arsenio son DIFFERENTIAL 12:21:00 Ruben Hill LACTATE DEHYDROGENASE 2021-05-02 MD Sajan Anderso n 12:21:00 Ruben Sergio FRACTIONATED BILIRUBIN 2021-05-02 MD Aba Moeller on 12:21:00 Ruben Hill MAGNESIUM LEVEL 2021-05-02 MD Corby Moeller 12:21:00 Ruben Sergio PHOSPHORUS LEVEL 2021-05-02 MD Corby Moeller 12:21:00 Ruben Sergio GLUCOSE LEVEL 2021-05-02 MD Corby Moeller 12:21:00 Ruben Hill BLOOD UREA NITROGEN 2021-05-02 MD Corby Moeller 12:21:00 Ruben Hill ELECTROLYTE PANEL 2021-05-02 MD Corby Moeller 12:21:00 Ruben Hill SERUM CREATININE 2021-05-02 MD Corby Moeller 12:21:00 Ruben Hill .GLOMERULAR FILTRATION RATE 2021-05-02 MD Loly Moeller nderson 12:21:00 Ruben Hill CALCIUM LEVEL TOTAL 2021-05-02 MD Corby Moeller 12:21:00 Ruben Sergio Results CBC 2021-05-02 MD Corby Moeller 12:21:00 Ruben Hill MANUAL DIFFERENTIAL 2021-05-02 MD Corby Moeller 12:21:00 Ruben Hill POC GLUCOSE SCREEN 2021-05-02 Juanjo Johnson MD 10:18:00 CT HEAD WO CONTRAST 2021-05-02 Royce Floyd MD 06:10:00 CT ABDOMEN PELVIS WO CONTRAST 2021-05-02 Royce Floyd MD 06:10:00 URINE CULTURE 2021-05-02 Royce Floyd MD 05:06:00 URINALYSIS WITH MICROSCOPIC IF 2021-05-02 Royce Floyd INDICATED 05:06:00 XR CHEST 1 VW 2021-05-02 Royce Floyd MD 04:12:05 INFLUENZA A/B + COVID-19 2021-05-02 Royce Floyd MD rson ASYMPTOMATIC-L 03:53:00 POC CHEM 8 2021-05-02 Royce Floyd MD 03:49:00 COMPLETE BLOOD COUNT W/ 2021-05-02 Royce Floyd MD Arsenio son DIFFERENTIAL 03:21:00 COMPREHENSIVE METABOLIC PANEL 2021-05-02 Royce Floyd MD 03:21:00 MAGNESIUM LEVEL 2021-05-02 Royce Floyd MD 03:21:00 PHOSPHORUS LEVEL 2021-05-02 Royce Floyd MD 03:21:00 LACTATE DEHYDROGENASE 2021-05-02 Royce Floyd MD Anderso n 03:21:00 AMYLASE LEVEL 2021-05-02 Royce Floyd MD 03:21:00 LIPASE LEVEL 2021-05-02 Royce Floyd MD 03:21:00 Results CBC 2021-05-02 Royce Floyd MD 03:21:00 MANUAL DIFFERENTIAL 2021-05-02 Royce Floyd MD 03:21:00 GLUCOSE LEVEL 2021-05-02 Royce Floyd MD 03:21:00 BLOOD UREA NITROGEN 2021-05-02 Royce Floyd MD 03:21:00 ELECTROLYTE PANEL 2021-05-02 Royce Floyd MD 03:21:00 SERUM CREATININE 2021-05-02 Royce Floyd MD 03:21:00 .GLOMERULAR FILTRATION RATE 2021-05-02 Royce Floyd MD nderson 03:21:00 CALCIUM LEVEL TOTAL 2021-05-02 Royce Floyd MD 03:21:00 ALBUMIN LEVEL 2021-05-02 Royce Floyd MD 03:21:00 ALKALINE PHOSPHATASE 2021-05-02 Royce Floyd MD 03:21:00 ALANINE AMINOTRANSFERASE 2021-05-02 Royce Floyd MD Servando rson 03:21:00 ASPARTATE AMINOTRANSFERASE 2021-05-02 Royce Floyd MD derson 03:21:00 TOTAL PROTEIN 2021-05-02 Royce Floyd MD 03:21:00 FRACTIONATED BILIRUBIN 2021-05-02 Royce Floyd MD on 03:21:00 OSI CHEST 2021-04-16 Dahlia Moncada MD 12:41:[address] ABDOMEN AND PELVIS 2021-04-15 Dahlia Moncada MD And erson 12:42:00 AP IHC BRAF V600E MATERIAL 2021-04-14 Christopher Barnett REQUEST 19:11:53 AP IHC HER2/DANNY MATERIAL REQUEST 2021-04-14 Minor Barnett MD 19:11:53 AP IHC MSI (MLH1, MSH2, MSH6, 2021-04-14 Christopher Barnett MD PMS2) MATERIAL REQUEST 19:11:53 OSI MRI HEAD 2021-04-01 Chet Jay MD 17:23:[address] CHEST 2021-03-31 Chet Jay MD 17:23:00 OSI ERCP 2021-03-27 Chet Jay MD 17:23:00 PATHOLOGY OUTSIDE INTERPRETATION 2021-03-27 Kinjal Staley MD 00:00:00 OSI MRI ABDOMEN 2021-03-25 Chet Jay MD 17:24:00 Plan of Care Planned Activity Planned Date Details Comments Source Future Scheduled Test 2021-03-18 00:00:00 COVID-19 Vaccination (Kayla Tavarez - Booster for Pina series) [code = COVID-19 Vaccination (2 - Booster for Pina series)] Encounters Start End Encounter Admission Attending Care Care Encounter Source Date/Time Date/Time Type Type Clinicians Facility Department ID 2021-08-21 Emergency [facility] [id number] [facility] 04:05:40 ity [facility] 2021-08-20 Inpatient U [facility] ARIELLA [id number] Univers 23:19:42 [facility] 2021-07-29 Inpatient [facility] [id number] [facility] 23:42:58 [facility] 2021-07-20 Outpatient SYSTEM, NAVEED LUCIO [id number] 09:45:47 PROVIDER Aba bonilla 2021-06-09 Outpatient NAVEED QUIÑONEZ Did[facility]/Hep/Nu [id number] 11:20:41 TONY bonilla 2021-06-02 Outpatient MANUEL MONCADA MDA [facility]/Hep/Nu [id number] 10:06:57 ROYCE bonilla 2021-05-24 Outpatient SYSTEM, NAVEED LUCIO [id number] 08:58:04 PROVIDER Aba bonilla 2021-04-04 Outpatient SYSTEMNAVEED MDA [id number] 17:08:06 PROVIDER Aba bonilla 2021-09-21 2021-09-21 Outpatient MANUEL BARNETT, MDA MDA [id number] 11:13:55 15:27:40 CHRISTOPHER Aba o n 2021-09-21 2021-09-21 Outpatient MANUEL BARNETT, MDA MDA [id number] MD 10:20:44 10:20:44 CHRISTOPHER Aba o n 2021-09-21 2021-09-21 Outpatient MANUEL BARNETT, MDA MDA [id number] 10:20:19 10:20:19 CHRISTOPHER Aba o n 2021-09-20 2021-09-20 Outpatient MANUEL BENNETT, MDA MDA [id number] 00:00:00 00:00:00 ED Aba o n 2021-09-17 2021-09-19 Inpatient UR KEN [facility] [id number] 11:14:00 12:06:00 Servando ZIMMERMAN 2021-09-13 2021-09-13 Outpatient MANUEL MONCADA, MDA MDA [id number] 07:05:06 14:32:11 MEENAUNG Arsenio so n 2021-09-13 2021-09-13 Outpatient MANUEL MONCADA, MDA MDA [id number] MD 06:45:23 06:56:19 MEENAUNG Arsenio so n 2021-09-11 2021-09-11 Outpatient MANUEL MONCADA, MDA MDA [id number] 13:35:57 14:10:50 MEENAUNG Arsenio so n 2021-09-07 2021-09-07 Outpatient MANUEL BARNETT, MDA MDA [id number] 14:47:29 17:57:43 CHRISTOPHER Aba o n 2021-09-07 2021-09-07 Outpatient MANUEL MONCADA, MDA MDA [id number] MD 13:11:05 14:53:08 MEENAUNG Arsenio so n 2021-09-04 2021-09-04 Outpatient EL CHAMP, MDA MDA [id number] MD 12:31:44 15:22:31 DANNY Mendezers o n 2021-08-31 2021-08-31 Outpatient EL MDA MDA [id number] 09:44:19 17:33:29 Aba o n 2021-08-31 2021-08-31 Outpatient MANUEL MONCADA, MDA MDA [id number] 08:11:35 10:07:04 MAIAIRENE Mendezer so n 2021-08-31 2021-08-31 Outpatient MANUEL MONCADA, MDA MDA [id number] 07:53:10 08:09:06 MAIAIRENE Mendezer so n 2021-08-19 2021-08-26 Inpatient ER CONRAD [facility] [id number] 21:44:00 12:45:00 CECY PHILLIPSso n 2021-08-25 2021-08-25 Inpatient EL CONRAD MDA MDA [id number] MD 14:05:02 14:25:14 CEYC PHILLIPSso n 2021-08-24 2021-08-24 Inpatient EL CONRAD MDA MDA [id number] MD 10:32:00 11:22:06 CECY PHILLIPSso n 2021-08-23 2021-08-23 Inpatient EL CONRAD MDA MDA [id number] MD 16:40:05 17:04:24 CECY PHILLIPS derso n 2021-08-22 2021-08-22 Inpatient EL CONRAD MDA MDA [id number] 17:17:43 17:34:38 CECY PHILLIPS derso n 2021-08-22 2021-08-22 Inpatient EL RUPERTO, MDA MDA [id number] 08:47:52 12:20:39 ANDREW Cesar so n 2021-08-18 2021-08-18 Outpatient EL MDA MDA [id number] 09:32:21 16:52:45 Aba o n 2021-08-18 2021-08-18 Outpatient EL CHANNING, MDA MDA [id number] 12:40:14 12:40:14 CHRISTOPHER Mendezers o n 2021-08-18 2021-08-18 Outpatient EL MDA MDA [id number] 09:09:46 09:26:34 Aba o n 2021-08-17 2021-08-17 Outpatient MANUEL MONCADA, MDA MDA [id number] 12:55:17 13:12:50 DAHLIA Cesar so n 2021-08-16 2021-08-16 Outpatient MANUEL MONCADA, MDA MDA [id number] 11:16:39 11:16:39 DAHLIA Cesar so n 2021-08-16 2021-08-16 Outpatient EL ANTWAN, MDA MDA [id number] MD 09:37:15 10:25:03 DAHLIA Cesar so n 2021-08-10 2021-08-10 Outpatient EL MDA MDA [id number] MD 09:13:56 14:03:59 Aba o n 2021-08-10 2021-08-10 Outpatient EL MDA MDA [id number] MD 09:28:02 12:16:26 Aba o n 2021-08-10 2021-08-10 Outpatient EL CHANNING, MDA MDA [id number] MD 07:45:58 09:21:53 CHRISTOPHER Aba o n 2021-08-10 2021-08-10 Outpatient EL ANTWAN, MDA MDA [id number] MD 07:13:59 07:43:47 DAHLIA Cesar so n 2021-07-27 2021-07-27 Outpatient EL MDA MDA [id number] MD 10:12:39 17:41:59 Aba o n 2021-07-27 2021-07-27 Outpatient EL ANTWAN, MDA MDA [id number] MD 07:44:18 10:11:19 ELKINIRENE Cesar so n 2021-07-27 2021-07-27 Outpatient EL MDA MDA [id number] MD 07:25:38 07:41:47 Aba o n 2021-07-18 2021-07-21 Inpatient ER KEN [facility] [id number] MD 21:49:00 11:30:00 Servando ZIMMERMAN 2021-07-19 2021-07-19 Inpatient EL MDA MDA [id number] MD 13:41:23 18:52:06 Aba o n 2021-07-14 2021-07-14 Outpatient EL ETCHEGARAY- MDA MDA [id number] MD 11:24:00 23:59:00 Aba CARLSON 2021-07-12 2021-07-12 Outpatient EL MDA MDA [id number] MD 08:08:55 16:41:10 Aba o chad 2021-07-10 2021-07-10 Outpatient EL MDA MDA [id number] 08:50:23 11:06:36 Aba o n 2021-07-10 2021-07-10 Outpatient EL MDA MDA [id number] 08:09:46 08:48:40 Aba o n 2021-06-22 2021-07-07 Inpatient ER JAVY- [facility] [id number] 05:41:00 18:38:00 Aba CARLSON n 2021-07-05 2021-07-05 Inpatient EL DOMINGO, MDA MDA [id number] 10:17:55 10:17:59 LISA Troncoso o n 2021-06-29 2021-06-29 Inpatient EL VICKEY, MDA MDA [id number] 07:52:39 08:18:23 LISA Troncoso o n 2021-06-27 2021-06-27 Inpatient EL DARIA, MDA MDA [id number] MD 16:05:30 22:27:14 YASEMIN Troncoso o n 2021-06-22 2021-06-22 Inpatient EL TREVON MDA MDA [id number] 15:34:23 20:26:32 Servando ZIEGLER n 2021-06-16 2021-06-21 Inpatient UR LE, PHAT [facility] [id number] 18:16:00 12:52:00 Aba bonilla 2021-06-17 2021-06-17 Inpatient MANUEL BHAT, MDA MDA [id number] MD 13:40:06 14:20:18 MONICA Troncoso o n 2021-06-16 2021-06-16 Inpatient EL ALLYSON, MDA MDA [id number] 20:57:51 21:13:25 ZOE Troncoso o n 2021-06-16 2021-06-16 Outpatient EL SOFIE, MDA MDA [id number] 07:49:02 18:15:00 DAGMAR clark n 2021-06-16 2021-06-16 Outpatient EL RUBIO, MDA MDA [id number] 12:10:03 13:03:31 COLETTE clakr n 2021-06-15 2021-06-15 Outpatient EL ANTWAN, MDA MDA [id number] 10:26:08 10:26:17 DAHLIA talavera n 2021-06-14 2021-06-14 Outpatient EL ANTWAN, MDA MDA [id number] 12:40:51 23:59:00 DAHLIA Mendezer so n 2021-06-12 2021-06-12 Orders Doctor ELENA [id number] Univers 00:00:00 00:00:00 Only Unassigned, TONI [id number] [facility] [place] [facility] [id number] Roshan as [id number] [facility] [address] 2021-06-06 2021-06-09 Inpatient ER ODARO, MDA Hosp Med [id number] 22:18:00 15:05:00 KERA bonilla 2021-06-05 2021-06-06 Outpatient EL CHANNING, MDA MDA [id number] 09:31:24 07:03:45 CHRISTOPHER Troncoso o chad 2021-06-05 2021-06-05 Outpatient MANUEL MONCADA, MDA MDA [id number] 13:23:00 13:29:14 MAIAIRENE Mendezer so n 2021-06-05 2021-06-05 Outpatient MANUEL MONCADA, MDA MDA [id number] 07:06:37 09:24:01 DAHLIA Arsenio so n 2021-06-05 2021-06-05 Outpatient EL CHANNING, MDA MDA [id number] 06:40:52 07:04:40 CHRISTOPHER Mendezers amber bonilla 2021-05-31 2021-05-31 Outpatient EL CHANNING, MDA MDA [id number] 06:39:48 23:59:00 CHRISTOPHER Mendezers o chad 2021-05-30 2021-05-30 Outpatient EL ANTWAN, MDA MDA [id number] 12:31:12 23:59:00 DAHLIA Mendezer so n 2021-05-30 2021-05-30 Outpatient EL NEDENSTEIN MDA MDA [id number] 08:12:06 08:12:06 , DONYA bonilla 2021-05-29 2021-05-29 Outpatient EL VONDENSTEIN MDA MDA [id number] 08:55:15 09:28:42 , DONYA bonilla 2021-05-29 2021-05-29 Outpatient MANUEL MONCADA MDA MDA [id number] 08:25:15 08:37:39 MAIAIRENE Arsenio so n 2021-05-24 2021-05-24 Outpatient MANUEL MONCADA, MDA MDA [id number] 08:25:55 17:48:27 MAIAKATHLEENROLDAN Mendezer so n 2021-05-24 2021-05-24 Outpatient MANUEL BARNETT MDA MDA [id number] 08:11:42 08:14:08 CHRISTOPHER Aba o n 2021-05-15 2021-05-23 Inpatient UR KOREY RENAE, MDA [facility]osp [facility] [id number] 04:12:00 15:56:00 ELIZABETH Mendezers o chad 2021-05-22 2021-05-22 Inpatient EL NASH DAY MDA MDA [id number] 15:32:39 19:56:17 Aba o chad 2021-05-21 2021-05-21 Inpatient [facility], ED MDA MDA [id number] 15:41:08 16:11:45 Aba o n 2021-05-20 2021-05-20 Inpatient [facility], ED MDA MDA [id number] 05:13:06 05:40:33 Aba o chad 2021-05-19 2021-05-19 Inpatient [facility], ED MDA MDA [id number] 12:11:40 12:34:12 Aba o chad 2021-05-19 2021-05-19 Inpatient [facility], ED MDA MDA [id number] 00:31:41 00:41:11 Aba o chad 2021-05-17 2021-05-17 Inpatient MANUEL BULL, MDA MDA [id number] MD 14:32:53 18:20:17 RIVKA Mendezers o chad 2021-05-16 2021-05-16 Outpatient R [facility] [id number] Univers 09:00:00 09:00:00 [id number] dinah of [facility] 2021-05-16 2021-05-16 Outpatient R SOUMYA [facility] [id number] Univers 09:00:00 09:00:00 RAMAN cowan [facility] 2021-05-11 2021-05-11 Outpatient EL ANTWAN, MDA MDA [id number] 08:05:40 12:09:07 MAIAIRENE Arsenio so n 2021-05-11 2021-05-11 Outpatient EL CHANNING MDA MDA [id number] MD 07:44:44 08:02:10 CHRISTOPHER Aba o n 2021-05-05 2021-05-05 Outpatient MANUEL MONCADA MDA MDA [id number] MD 15:00:23 15:00:23 MAIAKATHLEENUNG Arsenio so n 2021-05-05 2021-05-05 Outpatient MANUEL MONCADA, MDA MDA [id number] MD 15:00:19 15:00:19 DAHLIA Arsenio so n 2021-05-01 2021-05-04 Inpatient ER ROLAN, MDA Hosp Med [id number] 21:36:00 14:42:00 EVERETT Troncoso o chad 2021-04-18 2021-04-18 Outpatient R [facility] [id number] Univers 15:00:00 15:00:00 [id number] [facility] 2021-04-14 2021-04-14 Outpatient EL MDA MDA [id number] MD 10:48:51 10:48:51 Aba o n 2021-04-14 2021-04-14 Outpatient EL MDA MDA [id number] MD 10:48:49 10:48:49 Aba o n 2021-04-14 2021-04-14 Outpatient EL MDA MDA [id number] MD 10:48:48 10:48:48 Aba o chad 2021-04-14 2021-04-14 Outpatient EL MDA MDA [id number] MD 10:48:46 10:48:46 Aba o chad 2021-04-13 2021-04-13 Outpatient R [facility] [id number] Univers 10:30:00 10:30:00 [id number] [facility] 2021-04-13 2021-04-13 Outpatient R [facility] [id number] Univers 10:00:00 10:00:00 [facility] 2018-02-18 2018-02-18 Outpatient ELY_BEVERLEY STARK [id number] [place] 09:58:00 09:58:00 [id number] [facility] Results Test Description Test Time Test Comments Results Result Comments Source Urine Culture 2021-09-21 03:33:34 Test Item Value Reference Range Interpretation Comme nts Final Report (test code = 8488) 51-99,999 cfu/ml Mixture of three o r A more enteric organisms present. Further identification upon request within 5 days. Path Review - Urine (test code = 8483) Presence of several diffe rent organisms A indicates specimen of poor quality and likely contaminated with normal fecal liz. Recommend submission of new specimen if clinical indicated....The results have been reviewed and electronically signed by Pathologist:Alireza Mcneill MD, PhD #[id number] Lab Interpretation (test code = 81967-4) Abnormal [facility] Glucose [id number] 15:06:12 Test Item Value Reference Interpretation Comments Range POC Glucose (test 220 mg/dL 70-99 H RN Notifie dCapillary code = 74588-8) blood sample s, e.g. obtained by fingerstick, ma y have inaccurate resu lts in patients with decreased perip heral blood flow. Met hod description: Al l results are polina sured using Electroch emistry test methodolog y. The glucose in the sample mixes with the reagents on the test strip. The reac tion produces an avelino ctric current. The am ount of current produce d is proportional to the glucose concent ration in the blood. PO Sample Type (test Capillary code = 9554) Performing Lab (test [facility] code = 40079) [facility] MD [facility], [address] [place] [address], [place], [place] [address]; [employer] Integrator: Trinity Amato MD Lab Interpretation Abnormal (test code = 10164-8) MD TavarezFractionated [id number] 10:56:17 Test Item Value Reference Range Interpretation Comments Bili Total (test 0.3 mg/dL See_Comment Indocyanine Green (ICG) code = 5096) may cause false ly elevated biliru bin results. Total and direct bilirubin must not be measured from s amples containing indo cyanine green. False el evation of total bilirubin can be seen in patient s with IgG concentrations above 28 g/L. [Automate d message] The system DataProm generated this result transmitted ref erence range: <=1.2. T he reference range was not used to interpr et this result as normal/abnormal . Bili Direct (test <0.2 See_Comment Indocyanin e Green (ICG) code = 5094) may cause false ly elevated biliru bin results. Total and direct bilirubin must not be measured from s amples containing indo cyanine green. [Automat ed message] The sy stem which generated this result transmitted ref erence range: <=0.3 mg /dL. The reference range was not used to interpr et this result as normal/abnormal . Bili Indirect (test See Note 0.0-0.9 Unable t o calculate code = 5095) Indirect Biliru bin result due to some par ameters are outside rep ortable range MD TavarezPhosphorus [id number] 10:56:15 Test Item Value Reference Range Interpretation Comments Phosphorus (test code = 6817) 3.6 mg/dL 2.5-4.5 MD TavarezCalcium [id number] 10:56:14 Test Item Value Reference Range Interpretation Comments Calcium Lvl (test code = 5258) 9.0 mg/dL 8.4-10.2 MD TavarezAlbumin [id number] 10:56:13 Test Item Value Reference Range Interpretation Comments Albumin Lvl (test code 3.6 See_Comment [Aut omated message] The = 2314) system which ge nerated this result tra nsmitted reference range : 3.5 - 5.2 gm/dL. The refe rence range was not used to interpret this result as normal/abnormal . MD TavarezAspartate [id number] 10:56:12 Test Item Value Reference Range Interpretation Comments AST (test code = 21 U/L See_Comment [Automated message] The 8970) system which ge nerated this result transmit robinson reference range : <=32. The reference range was not used to interpr et this result as trudi l/abnormal. MD TavarezElectrolyte [id number] 10:56:11 Test Item Value Reference Range Interpretation Comments Sodium Lvl (test code = 135 See_Comment L [Au tomated message] 9179) The system Data[employer] generated this result transmitted ref erence range: 136 - 14 5 mEq/L. The refe rence range was not u sed to interpret this result as normal/abnor mal. Potassium Lvl (test code 4.1 See_Comment [A utomated message] = 0454) The system DataProm generated this result transmitted ref erence range: 3.5 - 5. 1 mEq/L. The refe rence range was not u sed to interpret this result as normal/abnor mal. Chloride (test code = 102 See_Comment [Auto mated message] 9493) The system DataProm generated this result transmitted ref erence range: 98 - 107 mEq/L. The refe rence range was not u sed to interpret this result as normal/abnor mal. CO2 (test code = 5227) 23 See_Comment [Aut omated message] The system DataProm generated this result transmitted ref erence range: 22 - 29 mEq/L. The reference r renee was not used to interpret this result as normal/abnor mal. Anion Gap (test code = 10 See_Comment [Aut omated message] 0128) The system DataProm generated this result transmitted ref erence range: 4 - 14 m Eq/L. The reference r renee was not used to interpret this result as normal/abnor mal. Lab Interpretation (test Abnormal code = 06615-9) MD TavarezGlucose [id number] 10:56:10 Test Item Value Reference Range Interpretation Comments Glucose Level (test 86 mg/dL 70-99 Effectiv e 05/16/16, the code = 5699) glucose referen ce intervals have been updated based o n [place] [employer] ishmael delines (Standards of M edical Care in Diabete s 2016. Diabetes Care 2 016; 39: S13-S22).Fastin g blood glucose:Normal: 70-99 mg/dLImpaired f asting glucose (increa sed risk for diabetes or pre-diabetes): 100-125 mg/dLDiabetes m ellitus: >/=126 mg/dL Ra ndom blood glucose:N ormal: 70-199 mg/dLNot e: Random glucose >100 mg /dL is associated with increased risk for diabetes MD TavarezGlomerular Filtration [id number] 10:56:08 Test Item Value Reference Range Interpretation Comments eGFR-AA (test code 108 See_Comment Normal eG FR: >= 60 = 8062) mL/min/1.73 m2N ote: The eGFR is calculated u sing the CKD-EPI equatio n. The eGFR declines with a ge. eGFR <60 mL/min/1.73 m2 is considered as "decreased". This equation should only be used for patients 18 and older. According to th e National Kidney [employer] on's Kidney Disease Outcome Quality Initiative (KDO QI) classification and 2012 Kidney Disease Improving Global Outcomes (KDIGO) Clinical Practi ce Guideline, the stage of CK D should be categorized bas ed on estimated GFR. Stage Description GFR mL/min/1.73 m21 Normal or high GFR >=902 Mildly decrease d GFR 60-893a M ildly to moderately decr eased GFR 45-593b Moderat elizabeth to severely decrea sed GFR 30-444 Severely decreased GFR 15-295 Kid carlitos failure <15 [Automa Xoomsys message] The system DataProm generated this result tra nsmitted reference range : >=60 mL/min/1.73 sq. m. The reference range was not used to interpret th is result as normal/abnormal . eGFR-LETICIA (test code 94 See_Comment Normal e GFR: >= 60 = 8063) mL/min/1.73 m2N ote: The eGFR is calculated u sing the CKD-EPI equatio n. The eGFR declines with a ge. eGFR <60 mL/min/1.73 m2 is considered as "decreased". This equation should only be used for patients 18 and older. According to th e National Kidney Found[employer] on's Kidney Disease Outcome Quality Initiative (KDO QI) classification and 2012 Kidney Disease Improving Global Outcomes (KDIGO) Clinical Practi ce Guideline, the stage of CK D should be categorized bas ed on estimated GFR. Stage Description GFR mL/min/1.73 m21 Normal or high GFR >=902 Mildly decrease d GFR 60-893a M ildly to moderately decr eased GFR 45-593b Moderat elizabeth to severely decrea sed GFR 30-444 Severely decreased GFR 15-295 Kid carlitos failure <15 [Automa robinson message] The system DataProm generated this result tra nsmitted reference range : >=60 mL/min/1.73 sq. m. The reference range was not used to interpret th is result as normal/abnormal . MD TavarezTotal [id number] 10:56:07 Test Item Value Reference Range Interpretation Comments Total Protein (test code = 7649) 5.9 g/dL 6.4-8.3 L Lab Interpretation (test code = Abnormal 45691-0) MD TavarezMagnesium [id number] 10:56:06 Test Item Value Reference Range Interpretation Comments Magnesium (test code = 6359) 1.7 mg/dL 1.6-2.6 MD TavarezAlkaline [id number] 10:56:05 Test Item Value Reference Range Interpretation Comments Alk Phos (test code = 4768) 134 U/L 35-104 H Lab Interpretation (test code = Abnormal 68373-9) MD [id number] 10:56:04 Test Item Value Reference Range Interpretation Comments ALT (test code = 20 U/L See_Comment [Automated message] The 0003) system which ge nerated this result transmit robinson reference range : <=33. The reference range was not used to interpr et this result as trudi l/abnormal. MD Tavarez.Serum [id number] 10:56:03 Test Item Value Reference Range Interpretation Comments Creatinine (test code = 5399) 0.56 mg/dL 0.51-0.95 MD [id number] 10:56:02 Test Item Value Reference Range Interpretation Comments BUN (test code = 5055) 18 mg/dL 6-23 MD TavarezBlleaospEhypmpieqiqu6150-51-21 10:27:04 Test Item Value Reference Range Interpretation Comments Neutrophil % (test code = 67.5 % 42.0-66.0 H 6491) Lymphocyte % (test code = 26.9 % 24.0-44.0 6194) Monocyte % (test code = 4.9 % 2.0-7.0 6422) Eosinophil % (test code = 0.5 % 1.0-4.0 L 5520) Basophil % (test code = 0.0 % 0.0-1.0 5068) IGRE % (test code = 5958) 0.2 % 0.0-0.4 IG RE % count includes Metamyelocytes, Myelocytes, and Promyelocytes. Neutrophil Abs (test code 2.78 K/uL 1.70-7.30 = 6492) Lymphocyte Abs (test code 1.11 K/uL 1.00-4.80 = 6195) Monocyte Abs (test code = 0.20 K/uL 0.08-0.70 6423) Eosinophil Abs (test code 0.02 K/uL 0.04-0.40 L = 5521) Basophil Abs (test code = 0.00 K/uL 0.00-0.10 5069) IG Abs (test code = 5954) 0.01 K/uL 0.00-0.04 Lab Interpretation (test Abnormal code = 64053-1) MD Tavarez.[id number] 10:26:58 Test Item Value Reference Range Interpretation Comments WBC (test code = 8034) 4.1 K/uL 4.0-11.0 RBC (test code = 6932) 2.33 See_Comment L [Aut omated message] The system DataProm generated this result transmitted ref erence range: 4.00 - 5 .50 M/uL. The refer ence range was not u sed to interpret this result as normal/abnor mal. Hgb (test code = 5898) 8.0 See_Comment L [Aut omated message] The system DataProm generated this result transmitted ref erence range: 12.0 - 1 6.0 gm/dL. The refe rence range was not u sed to interpret this result as normal/abnor mal. Hct (test code = 5860) 23.6 % 37.0-47.0 L MCV (test code = 6222) 101 fL 82-98 H MCH (test code = 6220) 34.3 pg 27.0-31.0 H MCHC (test code = 6221) 33.9 See_Comment [Au tomated message] The system DataProm generated this result transmitted ref erence range: 31.0 - 3 6.0 gm/dL. The refe rence range was not u sed to interpret this result as normal/abnor mal. RDW-SD (test code = 54.4 fL 35.1-46.3 H 6972) RDW-CV (test code = 14.6 % 12.0-15.5 6971) Platelet count (test 342 K/uL 140-440 code = 6832) MPV (test code = 6282) 8.3 fL 4.0-10.4 INRBC (test code = 0.0 % See_Comment The INRBC (instrument 5974) NRBC) value ref lects the enumeration of nucleated red b lood cells contained in a 200uL sampleof whole blood analyzed by the instrument. Thi s value maydiffer from the NRBC value repo rted in a manual differential,wh ich is based on a 100 cell differential. [Automated mess age] The system DataProm generated this result transmitted ref erence range: <=0.0. T he reference range was not used to int erpret this result as normal/abnormal . Lab Interpretation Abnormal (test code = 71737-8) MD TavarezClostridium Difficile DNA [id number] 17:45:47 Test Item Value Reference Range Interpretation Comments C difficile DNA (test Positive Negative A code = 5134) C difficle Toxin EIA Negative Negative (test code = 8961) C difficile C. difficile EIA is Interpretation (test performed only on code = 6863864) stools positive for C. difficile DNA and detects the presence of C. difficile toxin proteins via a rapid immunoassay. Patients positive for C. difficile DNA with a negative EIA are less likely to have a C. difficile infection and may represent asymptomatic carriage. Recommend clinical assessment. If significant diarrhea present, C. difficile infection remains a possibility. Lab Interpretation (test Abnormal code = 23696-4) MD TavarezVitamin B12 [id number] 11:50:12 Test Item Value Reference Range Interpretation Comments Vitamin B12 Lvl (test code = 8017) >4000 211-946 H Lab Interpretation (test code = Abnormal 32282-6) MD TavarezFerritin [id number] 11:22:23 Test Item Value Reference Range Interpretation Comments Ferritin Lvl (test code = 5608) 970 ng/mL 13-150 H Lab Interpretation (test code = Abnormal 28154-5) MD TavarezTransferrin with [id number] 11:11:06 Test Item Value Reference Range Interpretation Comments Transferrin (test code = 194 mg/dL 200-360 L 7653) TIBC (test code = 7532) 272 See_Comment [Au tomated message] The system DataProm generated this result transmit robinson reference range : 250 - 450 mcg/dL. T he reference range was not used to interpret this result as normal/abnormal . Lab Interpretation (test Abnormal code = 58433-6) MD Hendrickson [id number] 11:11:05 Test Item Value Reference Range Interpretation Comments Iron (test code = 99 See_Comment [Automate d message] The 6049) system which ge nerated this result transmit robinson reference range : 37 - 145 mcg/dL. The ref erence range was not used to interpret this result as normal/abnormal . MD TavarezGastrointestinal Multiplex [id number] 08:27:12 Test Item Value Reference Range Interpretation Comments Campylobacter (test code = Not Detected Not Detected 5262) C difficile DNA (GI Multi Refer to separate Panel) (test code = 9112) C. difficile DNA Assay for results Plesiomonas shigelloides Not Detected Not Detected (test code = 6836) Salmonella (test code = Not Detected Not Detected 7315) Vibrio (test code = 8012) Not Detected Not Detected Vibrio cholerae (test code Not Detected Not Detected = 8013) Yersinia enterocolitica Not Detected Not Detected (test code = 8049) Enteroaggregative E. coli Not Detected Not Detected (EAEC) (test code = 5478) Enteropathogenic E. coli Not Detected Not Detected (EPEC) (test code = 5488) Enterotoxigenic E. coli Not Detected Not Detected (ETEC) (test code = 5489) Shiga-like toxin-producing Not Detected Not Detected E. col (STEC) (test code = 7295) E. coli O157 (test code = Not Applicable Not Detected 5477) Shigella/Enteroinvasive E. Not Detected Not Detected coli (EIEC) (test code = 5484) Cryptosporidium (test code Not Detected Not Detected = 5410) Cyclospora cayetanensis Not Detected Not Detected (test code = 5416) Entamoeba histolytica Not Detected Not Detected (test code = 5512) Giardia lamblia (test code Not Detected Not Detected = 5681) Adenovirus F 40/41 (test Not Detected Not Detected code = 4747) Astrovirus (test code = Not Detected Not Detected 4828) Norovirus GI/GII (test Not Detected Not Detected code = 6511) Rotavirus A (test code = Not Detected Not Detected 7219) Sapovirus (I, II, IV and Not Detected Not Detected V) (test code = 7321) MD TavarezUrinalysis with [id number] 05:26:42 Test Item Value Reference Interpretation Comments Range UA WBC (test code = <1 See_Comment [Automa robinson 7904) message] The system which generated this result transmitted reference range : 0 - 2 /HPF. The reference range was not used to interpret this result as normal/abnormal . UA RBC (test code = 1 See_Comment [Automa robinson 7891) message] The system which generated this result transmitted reference range : 0 - 2 /HPF. The reference range was not used to interpret this result as normal/abnormal . UA Mucous (test code NOT SEEN Not Seen-Trace = 7887) /HPF UA Bacteria (test 1+ NOT SEEN /HPF A code = 7870) UA Squam Epi (test OCC None-Occasiona code = 7896) l /HPF UA Yeast (test code OCC NOT SEEN /HPF A = 7908) CARMINE (test code = Some reporting CARMINE) parameters within the Urinalysis test have changed due to the implementation of new instrumentation in the [employer], allowing greater sensitivity of measurement. Urinalysis results reported by the [facility] using existing instrumentation, as well as Urinalysis testing performed manually or by backup methodology at the [employer] will remain relatively unchanged. New reporting parameters and units will now be reported for all campuses. Lab Interpretation Abnormal (test code = 61433-4) MD TavarezUrinsonali w/Microscopic if [id number] 05:24:59 Test Item Value Reference Range Interpretation Comments UA Color (test code = 7877) Yellow Straw-Yellow UA Appear (test code = 7868) Hazy Clear A UA Glucose (test code = 7881) NEG NEG mg/dL UA Bili (test code = 7871) NEG NEG UA Ketones (test code = 7884) NEG NEG mg/dL UA Spec Grav (test code = 7894) 1.016 1.003-1.035 UA Blood (test code = 7872) NEG NEG UA pH (test code = 7909) 6.0 5.0-9.0 UA Protein (test code = 7890) NEG NEG mg/dL UA Urobilinogen (test code = 7903) NEG NEG UA Nitrite (test code = 7888) NEG NEG UA Leuk Est (test code = 7886) Trace NEG A Lab Interpretation (test code = Abnormal 74964-7) MD AndersonCOVID-19 (SARS-CoV-2)[id number] 23:23:51 Test Item Value Reference Range Interpretation Comments COVID19 Not Detected Not Detected (SARS-CoV-2) (test code = 79193-7) COVID19 SARS Inpatient Indication (test Admission code = 79252) Covid 19 Comment See Note The marv S ARS-CoV-2 (test code = [place] [address]) use on the gemma s Massiel System is a claudette l-time RT-PCR assay in tended for the qualita tive detection of SARS-CoV-2 (COV ID-19) viral RNA in nasopharyngeal swabs from either individuals rossi pected of COVID-19 by their healthcare prov ider or from any individual, inc luding individuals wit hout symptoms or oth er reasons to susp ect COVID-19. A fa ct sheet for patie nts provided by the automobile insurance claim examiner ([employer]) can be rev iewed at: https://www.fda .gov/m edia/741075/raghav nload. A fact sheet fo Health Care pro viders is provided by the automobile insurance claim examiner ([employer]) and can be reviewed at: https://www.EXO5 .gov/m edia/329583/raghav nload Results must be interpreted wit hin the context of all relevant clinic al and laboratory find ings and should not form the sole basis for a diagnosis or treatment decis ion. Positive result s do not rule out bacterial infec tion or co-infection with other viruses. Negative result s do not preclude SARS-CoV-2 infe ction and must be com bined with clinical observations, p atient history, and/or epidemiological information. Th is assay has been authorized by t FDA for use only un denisse Emergency Use Authorization ( EUA) in laboratories that have been CLIA-certified to perform moderate-comple xity and high-comple xity tests. The Microbiology Laboratory at [facility] [place], CLIA Accreditation #[id number] and CAP Accreditation #[id number], verif ied the performance characteristics of this assay. Int ernal controls are us ed to monitor all sta ges of the test proces s. MD Prajapati [id number] 18:28:22 Test Item Value Reference Range Interpretation Comments Anion Gap (test code 13 See_Comment [Autom ated message] The = 0815) system which ge nerated this result transmit robinson reference range : 4 - 14 mEq/L. The refe rence range was not used to interpret this result as normal/abnormal . CorbyChloride [id number] 18:28:21 Test Item Value Reference Range Interpretation Comments Chloride (test code = 95 See_Comment L [Auto mated message] 9609) The system DataProm generated this result transmitted ref erence range: 98 - 107 mEq/L. The refe rence range was not u sed to interpret this result as normal/abnor mal. Lab Interpretation (test Abnormal code = 20111-7) MD TavarezPotassium [id number] 18:28:20 Test Item Value Reference Range Interpretation Comments Potassium Lvl (test 4.4 See_Comment [Automa robinson message] The code = 6854) system which ge nerated this result tra nsmitted reference range : 3.5 - 5.1 mEq/L. The reference range was not u sed to interpret this result as normal/abnormal . MD TavarezSodium [id number] 18:28:19 Test Item Value Reference Range Interpretation Comments Sodium Lvl (test code = 128 See_Comment L [Au tomated message] 0827) The system [employer]Prom generated this result transmitted ref erence range: 136 - 14 5 mEq/L. The refe rence range was not u sed to interpret this result as normal/abnor mal. Lab Interpretation (test Abnormal code = 64112-0) MD TavarezGlucose, [id number] 18:28:16 Test Item Value Reference Range Interpretation Comments Glucose Random (test 134 mg/dL 70-199 Effecti ve 05/16/16, the code = 9360) glucose referen ce intervals have been updated based o n [place] [employer] ishmael delines (Standards of M edical Care in Diabete s 2016. Diabetes Care 2 016; 39: S13-S22).Fastin g blood glucose:Normal: 70-99 mg/dLImpaired f asting glucose (increa sed risk for diabetes or pre-diabetes): 100-125 mg/dLDiabetes m ellitus: >/=126 mg/dL Ra ndom blood glucose:N ormal: 70-199 mg/dLNot e: Random glucose >100 mg /dL is associated with increased risk for diabetes MD TavarezCarbon Dioxide [id number] 18:28:06 Test Item Value Reference Range Interpretation Comments CO2 (test code = 5227) 20 See_Comment L [Aut omated message] The system DataProm generated this result transmitted ref erence range: 22 - 29 mEq/L. The reference r renee was not used to interpret this result as normal/abnor mal. Lab Interpretation (test Abnormal code = 93419-6) MD TavarezLipase [id number] 18:24:34 Test Item Value Reference Range Interpretation Comments Lipase Lvl (test code = 6165) 32 U/L 13-60 MD TavarezAmylase [id number] 18:24:33 Test Item Value Reference Range Interpretation Comments Amylase Lvl (test code = 4806) 46 U/L 28-100 MD TavarezLactic Acid, [id number] 17:47:53 Test Item Value Reference Range Interpretation Comments V Lactate (test code = 2519-7) 1.5 mmol/L 0.5-1.6 MD TavarezPOC Chem 8 without Hemoglobin and [id number] 17:46:35 Test Item Value Reference Range Interpretation Comments POC NA (test code = 130 See_Comment L [Automa robinson message] 53731-4) The system DataProm generated this result transmitted ref erence range: 138 - 14 6 mEq/L. The refe rence range was not u sed to interpret this result as normal/abnor mal. POC K (test code = 4.6 See_Comment Method de scription: 00460-9) The i-STAT is a n analyzer used f or in vitro quantific ation of various anal ytes in whole blood. The device uses a s zahra disposable cart ridge which contains microfabricated sensors, a calibration rafael [employer], fluidics system , and a waste chamber . Each test cartridge contains chemic ally sensitive biose nsors on a [employer] ip that are config ured to perform spec ific tests. The microfabricated sensors measure analyte concent ration by an electroch emical assay. [Automa robinson message] The sy stem which generated this result transmit robinson reference range : 3.5 - 4.9 mEq/L. e reference range was not used to int erpret this result as normal/abnormal . POC CL (test code = 95 See_Comment L [Automa robinson message] 2068-12) The system DataProm generated this result transmitted ref erence range: 98 - 109 mEq/L. The refe rence range was not u sed to interpret this result as normal/abnor mal. POC VTCO2 (test code 21 See_Comment L [Autom ated message] = 2026-10) The system DataProm generated this result transmitted ref erence range: 24 - 29 mEq/L. The reference r renee was not used to interpret this result as normal/abnor mal. POC Anion Gap (test 19 mmol/L 08-09 code = 77648) POC BUN (test code = 28 mg/dL 8- H 99-2) POC Crea (test code 0.5 mg/dL 0.6-1.3 L Medicati ons, = 08517-5) especially hydroxyurea or supplements, vazquez ch as ascorbate, can interfere with test results causing a falsely and significantly h igher result than exp ected. If a problem is suspected with a patient's resul t, a sample should b e sent to the laborato for confirmatory te sting. Method descript ion: The i-STAT is a n analyzer used f or in vitro quantific ation of various anal ytes in whole blood. The device uses a s zahra disposable cart ridge which contains microfabricated sensors, a calibration rafael [employer], fluidics system , and a waste chamber . Each test cartridge contains chemic ally sensitive biose nsors on a [employer] ip that are config ured to perform spec ific tests. The microfabricated sensors measure analyte concent ration by an electroch emical assay. POC eGFR-AA (test 113 See_Comment Normal eGF R >= 60 code = 43852-8) mL/min/1.73 m2 The eGFR is calcula robinson using the CKD-E PI equation. The e GFR declines with a ge. eGFR <60 mL/min /1.73 m2 is considere d as "decreased" Thi s equation should only be used for pat ients 18 and older. According to e National Kidney Foundation's Ki dney Disease Outcome Quality Initiat solo (KDOQI) classification and 2012 Kidney Dis ease Improving Globa l Outcomes (KDIGO ) Clinical Practi ce Guideline, the stage of CKD should b e categorized bas ed on estimated GFR. Stage Description GFR mL/min/1.73 m21 Kidney damage w ith normal or high GFR >=902 Kidney d amage with mild decre ase in GFR 60-893a Mild to moderate dec rease in GFR 45-5 93b Moderate to sev ere decrease in GFR 30-444 Severe decrease in GFR 15-295 Kidney f ailure <15 (or janki lysis) [[employer]] The system DataProm generated this result transmitted ref erence range: >=60 mL/min/1.73 m2. The reference range was not used to int erpret this result as normal/abnormal . POC eGFR-LETICIA (test 97 See_Comment Normal eG FR >= 60 code = 41317-9) mL/min/1.73 m2 The eGFR is calcula robinson using the CKD-E PI equation. The e GFR declines with a ge. eGFR <60 mL/min /1.73 m2 is considere d as "decreased" Thi s equation should only be used for pat ients 18 and older. According to th e National Kidney Foundation's Ki dney Disease Outcome Quality Initiat solo (KDOQI) classification and 2012 Kidney Dis ease Improving Globa l Outcomes (KDIGO ) Clinical Practi ce Guideline, the stage of CKD should b e categorized bas ed on estimated GFR. Stage Description GFR mL/min/1.73 m21 Kidney damage w ith normal or high GFR >=902 Kidney d amage with mild decre ase in GFR 60-893a Mild to moderate dec rease in GFR 45-5 93b Moderate to sev ere decrease in GFR 30-444 Severe decrease in GFR 15-295 Kidney f ailure <15 (or janki lysis) [[employer]] The system DataProm generated this result transmitted ref erence range: >=60 mL/min/1.73 m2. The reference range was not used to int erpret this result as normal/abnormal . POC Glucose (test 131 mg/dL 70-99 H code = 85512-1) POC Ion Ca (test 1.29 mmol/L 1.12-1.32 code = 02396-6) POC Sample Type Venous (test code = 6690) POC Clean Dev (test Yes code = 6672) Performing Lab (test MDA Main Main Ca mpus code = 36985) [facility], [address], [facility] [place] [address]; [employer] Integrator: Trinity Amato MD Lab Interpretation Abnormal (test code = 17895-1) MD TavarezBlood [id number] 01:11:08 Test Item Value Reference Range Interpretation Comments Final Report (test No growth code = 8488) Path Review - Immunity and antibiotic Bottle/Isolator use may render culture (test code = 8499) negative. Ongoing infection requires repeat culture.The results have been reviewed and electronically signed by Pathologist:ROYCE ALY MD #[id number] MD TavarezCardiac [id number] 08:27:08 Test Item Value Reference Range Interpretation Comments CK (test code = 5206) <12 26-192 L CK MB (test code = <2.0 See_Comment [Automat ed message] 5205) The system DataProm generated this result transmitted ref erence range: <=5.3 ng /mL. The reference r renee was not used to interpret this result as normal/abnor mal. Troponin T (test code = <6 See_Comment < 19 ng/L 9384) Vazquez ggest retest at 3 to 6 hours later to rule o ut myocardial infarction >= 1 9 to <=52 ng/L Possible myocar dial injury. Sugges t retest at 3 mickie rs. - a change of < 20 ng/L, retest at 6 mickie rs - a change of >= 20 ng/L, suggestive of myocardial infarction > 52 ng/L Suggest solo of myocardial infa rction Critical value will be reported when c Lauri is > 52 ng/L and o nly reported for th e first in a series. He molyzed specimens with Hemolysis Index >100 (100 mg/dl or m oderate hemolysis) may cause interferences a nd falsely low res ults. [Automated mess age] The system DataProm generated this result transmitted ref erence range: <=18 ng/ L. The reference range was not used to int erpret this result as normal/abnormal . Lab Interpretation Abnormal (test code = 38356-8) MD TavarezTMP Interpretation Antibody Screen [id number] 13:52:24 Test Item Value Reference Range Interpretation Comments TMP Auto Neg At the present ABSC Interp time, patient (test code = plasma shows no TONI 7535) evidence of RBC GODFREY alloantibodies. Tesha LAWRENCE robinson by: TONI LAWRENCE,Dictated Date/Time: 08.20.2021 8:52 AM CDT Transcrib ed Date/Time: 08.20.2021 8:52 AM CDTElectronical ly Signed By: YENI IN BEKAH LAWRENCE, on 08.20.2021 8:52 AM C MD TavarezRespiratory Viral Panel + COVID-19, Nasopharyngeal [id number] 05:45:34 Test Item Value Reference Range Interpretation Comments RMP Source (test code = Not Applicable 8653) Adenovirus (test code = Not Detected Not Detected 4748) Coronavirus 229E (test Not Detected Not Detected code = 5349) Coronavirus HKU1 (test Not Detected Not Detected code = 5350) Coronavirus NL63 (test Not Detected Not Detected code = 5351) Coronavirus OC43 (test Not Detected Not Detected code = 5352) COVID19 (SARS-CoV-2) Not Detected Not Detected (test code = 17173-5) Human Metapneumovirus Not Detected Not Detected (test code = 6401) Human Not Detected Not Detected Rhinovirus/Enterovirus (test code = 7212) Influenza A (test code Not Detected Not Detected = 5618) Influenza A H1 (test Not Detected Not Detected code = 5619) Influenza A H1 2009 Not Detected Not Detected (test code = 5620) Influenza A H3 (test Not Detected Not Detected code = 5621) Influenza B (test code Not Detected Not Detected = 5622) Parainfluenza 1 (test Not Detected Not Detected code = 6779) Parainfluenza 2 (test Not Detected Not Detected code = 6780) Parainfluenza 3 (test Not Detected Not Detected code = 6781) Parainfluenza 4 (test Not Detected Not Detected code = 6782) Respiratory Syncytial Not Detected Not Detected Virus (test code = 7157) Bordetella Not Detected Not Detected Parapertussis (test code = 95626) Bordetella pertussis Not Detected Not Detected (test code = 4854) Chlamydiophila Not Detected Not Detected pneumoniae (test code = 5139) Mycoplasma pneumoniae Not Detected Not Detected (test code = 6203) CARMINE (test code = CARMINE) The Waluzie RP2.1 is a real-time, nested multiplexed polymerase chain reaction test designed to simultaneously identify nucleic acids from 22 different viruses and bacteria associated with respiratory tract infection, including SARS-CoV-2, from a single nasopharyngeal swab (PRICING INTERN) specimen obtained from individuals suspected of respiratory tract infections, including COVID-19. Results must be interpreted within the context of all relevant clinical and laboratory findings and should not form the sole basis for a diagnosis or treatment decision. Positive results do not rule out coninfection with other organisms. Negative results in the setting of a respiratory illness may be due to infection with pathogens that are not detected by this panel, or a lower respiratory tract infection that may not be detected by an PRICING INTERN specimen. Internal controls are used to monitor all stages of the test process and assess [...] and high-complexity tests. The Microbiology Laboratory at [facility], CLIA Accreditation #[id number] and CAP Accreditation #[id number], verified the performance characteristics of this assay. Microbiology Laboratory at [facility] performs the assay using the [employer] System. MD TavarezAntibody [id number] 05:27:19 Test Item Value Reference Range Interpretation Comments ABSC. (test code = Negative ABSC 890-4) CARMINE (test code = Early Sepsis Intervention CARMINE) MD [id number] 05:27:18 Test Item Value Reference Range Interpretation Comments ABORh. (test code = B POS 882-1) CARMINE (test code = Early Sepsis Intervention CARMINE) MD TavarezClot Expiration [id number] 05:27:16 Test Item Value Reference Range Interpretation Comments T & S Expiration (test code = 08/22/2021 5318) MD [id number] 04:22:07 Test Item Value Reference Range Interpretation Comments aPTT (test 29.5 See_Comment [Automated mes jennifer] code = 6773) The system DataProm generated this result transmit robinson reference range : 24.7 - 36.8 second(s). The reference range was not used to interpret this result as normal/abnormal . CARMINE (test Early Sepsis code = CARMINE) Intervention MD TavarezProthrombin [id number] 04:22:06 Test Item Value Reference Range Interpretation Comments PT (test code = 13.5 See_Comment [Automated 6746) message] The system which generated this result transmitted reference range : 11.5 - 13.9 second(s). The reference range was not used to interpret this result as normal/abnormal . INR (test code = 1.11 0.90-1.10 H 5973) CARMINE (test code = Early Sepsis CARMINE) Intervention Lab Interpretation Abnormal (test code = 23093-3) MD [facility] [id number] 04:12:39 Test Item Value Reference Range Interpretation Comments POC VB pH (test code 7.43 7.31-7.41 H = 6719) POC VB pCO2 (test 38 See_Comment L [Automate d message] code = 6718) The system DataProm generated this result transmitted ref erence range: 41 - 51 mmHg. The reference r renee was not used to interpret this result as normal/abnor mal. POC VB pO2 (test 44 mmHg code = 6720) POC VB TCO2 (test 26 See_Comment [Automate d message] code = 2026-) The system [facility] generated this result transmitted ref erence range: 24 - 29 mEq/L. The reference r renee was not used to interpret this result as normal/abnor mal. POC VB Bicarb (test 25 mmol/L 23-28 code = 68598-9) POC VB Base Ex (test 0 mmol/L -2-3 code = 1927-3) POC VB O2 Sat (test 81 % code = 2711-0) POC VB LAC (test 2.1 mmol/L 0.9-1.7 H Method desc ription: code = 2519-7) The i-STAT is an analyzer used f or in vitro quantific ation of various anal ytes in whole blood. The device uses a s zahra disposable cart ridge which contains microfabricated sensors, a calibration rafael ution, fluidics system , and a waste chamber . Each test cartridge contains chemic ally sensitive biose nsors on a silicon [employer] ip that are config ured to perform spec ific tests. The microfabricated sensors measure analyte concent ration by an electroch emical assay. POC Sample Type Venous (test code = 6690) POC Clean Dev (test Yes code = 6672) Performing Lab (test MDA Main Main Ca mpus code = 49349) [facility], [facility] [facility], [place] [address]; [employer] Integrator: Trinity Amato MD Lab Interpretation Abnormal (test code = 80882-6) MD TavarezCOVID-19 (SARS-CoV-2) PCR-Asymptomatic [id number] 06:40:33 Test Item Value Reference Range Interpretation Comments COVID19 (SARS Not Detected Not Detected CoV-2) Result (test code = ____[place] a 38403-7) qualitative reverse-transcr iptase polymerase jose m n reaction (RT-PC R) developed for t he Seth MARV 680 0 system and inte nded for qualitative detection of SA RS CoV-2 RNA in nasopharyngeal and oropharyngeal s wab specimens colle cted from any indivi duals, including those suspected of CO VID-19 by their health care provider, and t hose without symptom s or other reasons t o suspect COVID-1 9. A fact sheet for patients provid ed by the manufacture r ([employer]) c an be reviewed at:https://www. fda.go v/media/435412/ ramez ad. A fact shee t for Health Care pro viders is provided by the automobile insurance claim examiner ([employer]) and can be reviewed at: https://www.fda .gov/m edia/306859/raghav nload Results must be interpreted wit hin the context of all relevant clinic al and laboratory find ings and should not form the sole basis for a diagnosis or treatment decis ion. Positive result s do not rule out bacterial infec tion or co-infection with other viruses. Negative result s do not rule out SARS-CoV-2 and must be combined wit h clinical observations, p atient history, and/or epidemiological information. "Presumptive Positive" resul ts are due to partial amplification o f SARS-CoV-2 targ ets and indicates l ow amounts of viru s present in the specimen at or near the limit of detection. Regardless, individuals wit h "Presumptive Positive" resul ts should be manag ed per institutional guidelines as individuals pos itive for SARS-CoV-2 virus, including use o f appropriate inf ection control protoco ls. Internal contro ls are included to ass ess for possible amplification inhibitors. If inhibition is detected, testi ng is repeated and if inhibition is confirmed the specimen is res ulted as "Invalid". W hen an "Invalid" resul t occurs, it is recommended to wait 3 days before submitting a ne w specimen for te sting if clinically indicated. Thi s assay has been approved by the FDA for use only un denisse Emergency Use Authorization ( EUA) in laboratories that have been CLIA-certified to perform moderate-comple xity and high-comple xity tests. The performance characteristics of this assay were verified by the Microbiology Laboratory at [facility] [place], CLIA Accreditation # : [id number] and CAP Accreditation # : [id number]. COVID19 SARS PAIRER Swab Source (test code = 59137) COVID19 SARS Pre-Out of OR Indication (test Procedure code = 77218) MD TavarezInfluenza A/B + COVID-19 Asymptomatic- [id number] 05:56:11 Test Item Value Reference Range Interpretation Comments COVID19 Not Detected Not Detected (SARS-CoV-2) (test code = 43327-0) Influenza A (test Not Detected Not Detected code = 19926-5) Influenza B (test Not Detected Not Detected code = 36348-4) COVID19 SARS Inpatient Indication (test Admission code = 28034) Inf AB+Cov19 See Note The marv SARS- CoV-2 Comment (test & Influenza A/ B code = 44437) nucleic acid t est for use on the gemma s Massiel System is a mul tiplex real-time RT-PC R assay intended for the simultaneou s, qualitative det ection and differentia l of SARS-CoV-2 (COVID-19), inf luenza A, and influenz a B viral RNA in nasopharyngeal swabs in transport me janki from patients suspected of jarrett ving a respiratory inf ection with one of the se viruses or poss ibly exposure to COV ID-19 by a healthcare provider. Resul ts must be interpr eted within the cont ext of all relevant cl inical and laboratory findings and sh ould not form the so le basis for a janki gnosis or treatment decision. A fac t sheet for patie nts provided by the automobile insurance claim examiner ([employer]) can be rev iewed at: https://www.EXO5 .gov/m edia/266689/raghav nloadA fact sheet for Health Care providers is provided by the automobile insurance claim examiner ([employer]) and can be reviewed at: https://www.fda .gov/m edia/975530/raghav nload Influenza A and Influenza B neg ative results should be considered presumptive in samples that jarrett ve a positive SARS-C oV-2 result. If co-infection wi th influenza A or influenza B vir us is suspected in sa mples with a positive SARS-CoV-2 resu lts, the sample shou ld be re-tested with another approve d influenza test. This assay has been authorized by t [facility] for use only un denisse Emergency Use Authorization ( EUA) in laboratories that have been CLIA-certified to perform moderate-comple xity and high-comple xity tests. The Microbiology Laboratory at [facility], CLIA Accreditation #[id number] and CAP Accreditation #[id number], verif ied the performance characteristics of this assay. Int ernal controls are us ed to monitor all sta ges of the test proces s. MD TavarezGeneral Laboratory Add-On [id number] 13:42:17 Test Item Value Reference Range Interpretation Comments Ordered (test code = 6568) Test Added Test Needed (test code = 7604) CA19-9 MD TavarezTMP Interpretation [id number] 19:06:50 Test Item Value Reference Range Interpretation Comments TMP XM Interp RBC units (test code = crossmatched for 7566) transfusion appear ___NIRAV christopher. VENESSA,Dictat ed by: NIRAV CLIFFORDDictemelyn ed Date/Time: 06.28.2021 14:0 6 PM CDT Transcrib ed Date/Time: 06.28.2021 14:0 6 PM CDTElectronical ly Signed By: HARJEET CLIFFORD, on 06.28.2021 14:0 6 PM MD TavarezPregerardo RBC:2021-06-27 23:23:04 Test Item Value Reference Range Interpretation Comments Unit Number (test [id number] code = 7002) Product Code (test [id number] code = 7003) Unit Expiration (test code = 328162) Unit Blood Type 7300 (test code = 7004) Product Code Text RBCIRLR CPD AS1 (test code = 500mL 988464) Crossmatch [id number] Expiration Date (test code = 343190) Unit Irradiated IRRADIATED (test code = 042444) Dispense Status ISSUED (test code = 7001) Unit Blood Type B Positive (test code = 7005) Product Ramp Service Man .BPAM ____ Location (test ___ code = 128837) ___ ____ MD TavarezSemarli [id number] 20:48:10 Test Item Value Reference Range Interpretation Comments Sed Rate (test code = 67 See_Comment H [Auto mated 0464-7) message] The system which generated this result transmit robinson reference range : 0 - 20 mm/hr. The reference range was not used to interpret this result as normal/abnormal . CARMINE (test code = CARMINE) Next lab draw Lab Interpretation Abnormal (test code = 61105-4) MD Ta[id number] 16:39:28 Test Item Value Reference Range Interpretation Comments CRP (test code = 12.18 mg/L Reference r cheryl for HS 5235) CRP assay are a s follows: Reference range s when used to assess cardi ac risk: <1.00 mg/L Low cardiovascular risk 1.00-3.00 mg/L Average cardiovascular risk >3.00 mg/L High cardi ovascular risk.Reference ranges when used to assess inflammatory re sponses: Less than or eq ual to 10.00 mg/L. MD TavarezClivelefYtlupgwtggvum5084-51-04 16:39:27 Test Item Value Reference Range Interpretation Comments Procalcitonin (test 0.20 ng/mL See_Comment H Procalci tonin > 2.00 code = 9379) ng/mL: Procalcitonin l evels above 2.00 ng/m L are highly suggesti ve of a high risk for systematic bact erial infection/ mike re sepsis and/or s eptic shock. Procalci tonin < 0.50 ng/mL: Procalcitonin l evels below 0.50 ng/m L are at low risk for progression to severe sepsis and/ or septic shock. Procalci tonin (ProCT) between 0.15 and 2.0 ng/mL d o not exclude infecti on, because localiz ed infections (wit hout systemic signs) may be associated w ith such low levels . Results greater than 400 ng/mL may n ot be reliable due to the matrix effect w ith extended diluti on as it exceeds the automobile insurance claim examiner's recommended sanches it. Caution should be exercised when interpreting vazquez ch values and done in conjunction [facility] clinical contex t. [Automated mess age] The system [employer] generated this result transmitted ref erence range: <=0.08. The reference range was not used to int erpret this result as normal/abnormal . Lab Interpretation Abnormal (test code = 57807-2) MD TavarezQubjcrtaYTB7656-15-56 11:54:18 Test Item Value Reference Range Interpretation Comments LDH (test code = 200 U/L 135-214 Results gre ater than 5371 3011) U/L may not be reliable due to matrix effec t with extended diluti on as it exceeds the man ufacturer s recommended l imit. Caution should be exercised when interpreti ng such values and done in conjunction [facility] clinical context. MD TavarezMRSA Screening Wslsgyc8948-91-69 22:20:08 Test Item Value Reference Range Interpretation Comments Final Report (test No Methicillin resistant code = 8488) Staphylococcus aureus isolated. Path Review (test The results have been code = 8492) reviewed and electronically signed by Pathologist:ROYCE ALY MD #[id number] MD TavarezSodium Fyhtq8908-32-82 07:12:42 Test Item Value Reference Range Interpretation Comments U Sodium (test code = 67 mEq/L Normal range not available 7809) for collections less than 24 hours in dur ation. MD Petit Bqugo2573-58-95 07:00:23 Test Item Value Reference Range Interpretation Comments U Osmolality (test code 299 See_Comment Urin ester osmolality may = 7785) vary widely, de pending on the state of hydration. [place] om urine osmolality can range from 50 to 1400 mOsm/kg H2O depending o n fluid intake. In stan viduals on average flui d intake, urine osmolalit y is typically 300-9 00 mOsm/kg H2O.Uni ts of measure: mOsm p er Kg of water. [Automa robinson message] The sy stem which generated this result transmit robinson reference range : 50 - 1,400 mOsm/kg H 2O. The reference range was not used to interpr et this result as normal/abnormal . MD TavarezFrjulia [id number] 05:53:32 Test Item Value Reference Range Interpretation Comments T4 Free (test code = 7502) 2.33 ng/dL 0.93-1.70 H Lab Interpretation (test code = Abnormal 71810-9) MD TavarezZoqzsajjMII7869-48-09 05:53:31 Test Item Value Reference Range Interpretation Comments TSH (test code = 7578) <0.01 See_Comment L [Aut omated message] The system [employer] h generated this result transmitted ref erence range: 0.27 - 4 .20 mcunit/mL. The reference range was not used to int erpret this result as normal/abnormal . Lab Interpretation (test Abnormal code = 47575-5) MD TavarezUnhezqkxIpvuitbiuw9997-42-93 05:34:53 Test Item Value Reference Range Interpretation Comments Osmolality (test code = 272 See_Comment L Unit s in mOsm per kg 6571) of water. [Auto mated message] The sy stem which generated this result transmit robinson reference range : 275 - 300 mOsm/kg H 2O. The reference r renee was not used to interpret this result as normal/abnor mal. Lab Interpretation (test Abnormal code = 94164-7) [facility] Chem [id number] 14:31:16 Test Item Value Reference Range Interpretation Comments POC NA (test code = 133 See_Comment L [Automa robinson message] 31942-1) The system [employer] generated this result transmitted ref erence range: 138 - 14 6 mEq/L. The refe rence range was not u sed to interpret this result as normal/abnor mal. POC K (test code = 4.0 See_Comment Method de scription: 94336-9) The i-STAT is a n analyzer used f or in vitro quantific ation of various anal ytes in whole blood. The device uses a s zahra disposable cart ridge which contains microfabricated sensors, a calibration rafael ution, fluidics system , and a waste chamber . Each test cartridge contains chemic ally sensitive biose nsors on a [employer] ip that are config ured to perform spec ific tests. The microfabricated sensors measure analyte concent ration by an electroch emical assay. [Automa robinson message] The sy stem which generated this result transmit robinson reference range : 3.5 - 4.9 mEq/L. Th e reference range was not used to int erpret this result as normal/abnormal . POC CL (test code = 99 See_Comment [Automa robinson message] 2068-12) The system [employer] generated this result transmitted ref erence range: 98 - 109 mEq/L. The refe rence range was not u sed to interpret this result as normal/abnor mal. POC VTCO2 (test code 23 See_Comment L [Autom ated message] = 2026-10) The system [employer] generated this result transmitted ref erence range: 24 - 29 mEq/L. The reference r renee was not used to interpret this result as normal/abnor mal. POC Anion Gap (test 15 mmol/L 08-09 code = 27547) POC BUN (test code = 16 mg/dL 06-15 6299-2) POC Crea (test code 0.6 mg/dL 0.6-1.3 Medicati ons, = 63309-2) especially hydroxyurea or supplements, vazquez ch as ascorbate, can interfere with test results causing a falsely and significantly h igher result than exp ected. If a problem is suspected with a patient's resul t, a sample should b e sent to the laborato for confirmatory te sting. Method descript ion: The i-STAT is a n analyzer used f or in vitro quantific ation of various anal ytes in whole blood. The device uses a s zahra disposable cart ridge which contains microfabricated sensors, a calibration rafael ution, fluidics system , and a waste chamber . Each test cartridge contains chemic ally sensitive biose nsors on a [employer] ip that are config ured to perform spec ific tests. The microfabricated sensors measure analyte concent ration by an electroch emical assay. POC eGFR-AA (test 106 See_Comment Normal eGF R >= 60 code = 50813-0) mL/min/1.73 m2 The eGFR is calcula robinson using the CKD-E PI equation. The e GFR declines with a ge. eGFR <60 mL/min /1.73 m2 is considere d as "decreased" Thi s equation should only be used for pat ients 18 and older. According to th e National Kidney Foundation's Ki dney Disease Outcome Quality Initiat solo (KDOQI) classification and 2012 Kidney Dis ease Improving Globa l Outcomes (KDIGO ) Clinical Practi ce Guideline, the stage of CKD should b e categorized bas ed on estimated GFR. Stage Description GFR mL/min/1.73 m21 Kidney damage w ith normal or high GFR >=902 Kidney d amage with mild decre ase in GFR 60-893a Mild to moderate dec rease in GFR 45-5 93b Moderate to sev ere decrease in GFR 30-444 Severe decrease in GFR 15-295 Kidney f ailure <15 (or janki lysis) [Automated mes jennifer] The system [employer] generated this result transmitted ref erence range: >=60 mL/min/1.73 m2. The reference range was not used to int erpret this result as normal/abnormal . POC eGFR-LETICIA (test 92 See_Comment Normal eG FR >= 60 code = 32637-0) mL/min/1.73 m2 The eGFR is calcula robinson using the CKD-E PI equation. The e GFR declines with a ge. eGFR <60 mL/min /1.73 m2 is considere d as "decreased" Thi s equation should only be used for pat ients 18 and older. According to th e National Kidney Foundation's Ki dney Disease Outcome Quality Initiat solo (KDOQI) classification and 2012 Kidney Dis ease Improving Globa l Outcomes (KDIGO ) Clinical Practi ce Guideline, the stage of CKD should b e categorized bas ed on estimated GFR. Stage Description GFR mL/min/1.73 m21 Kidney damage w ith normal or high GFR >=902 Kidney d amage with mild decre ase in GFR 60-893a Mild to moderate dec rease in GFR 45-5 93b Moderate to sev ere decrease in GFR 30-444 Severe decrease in GFR 15-295 Kidney f ailure <15 (or janki lysis) [Automated mes jennifer] The system [employer] generated this result transmitted ref erence range: >=60 mL/min/1.73 m2. The reference range was not used to int erpret this result as normal/abnormal . POC Glucose (test 117 mg/dL 70-99 H code = 55425-6) POC Ion Ca (test 1.25 mmol/L 1.12-1.32 code = 12639-5) POC Hct (test code = 30.0 % 38.0-51.0 L 04622-1) POC Hgb (test code = 10.2 See_Comment L Hematoc rit values 718-7) from the iSTAT are determined conductometrica lly, which may be af fected by WBC count, l evels of total protei n, lipids, or sodi um. The hemoglobin result is calculated b ased on the correspo nding measured hemato crit and assumes a n ormal MCHC. If there is a discrepancy bet ween the results fro m iSTAT and conventional laboratory meth od, the result from conventional me thod should be consi dered the accurate standard. [Aut omated message] The sy stem which generated this result transmit robinson reference range : 12.0 - 17.0 gm/dL. T he reference range was not used to int erpret this result as normal/abnormal . POC Sample Type Venous (test code = 6690) POC Clean Dev (test Yes code = 6672) Performing Lab (test MDA Main Main Ca mpus code = 23700) [facility], [address], [facility] [place] [address]; [employer] Integrator: Trinity Amato MD Lab Interpretation Abnormal (test code = 47624-8) MD TavarezVancomycin Trough Vancomycin trough on 06/08/21@08:00AM. Nurse please coordinate with lab to draw trough approximately 11 - 11.5hours after 06/07/21 evening vanco dose. Hold vancomycin doses if trough isgreater than 20 and notify . Thanks!2021-06-08 14:30:40 Test Item Value Reference Range Interpretation Comments Vanco Trough 10.8 See_Comment Toxic Trough Le danielito: (test code = >20 mcg/mL [Aut omated 8008) message] The sy stem which generated this result transmit robinson reference range : 5.0 - 20.0 mcg/mL. Th e reference range was not used to int erpret this result as normal/abnormal . Vanco Tr Dose SEE NOTE Level, date, a nd time Time (test of previous dos e is code = 8007) not availablefo r this sample. The migel e reported is the samplecollectio n date. Vanco Tr Dose 06/08/2021 Level, date, a nd time Date (test of previous dos e is code = 8006) not availablefo r this sample. The migel e reported is the samplecollectio n date. CARMINE (test Vancomycin trough on code = CARMINE) 06/08/21@08:00AM. Nurse please coordinate with lab to draw trough approximately 11 - 11.5hours after 06/07/21 evening vanco dose. Hold vancomycin doses if trough is greater than 20 and notify . Thanks! MD TavarezHemoglobin [id number] 18:07:50 Test Item Value Reference Range Interpretation Comments A1C (test code = 5.2 % 4.3-5.6 HbA1c value s >=6.5% are 4632) diagnostic of d iabetes mellitus.Diagno sis should be confirmed by repeat testing.Therape utic Action suggested: >8.0 % HbA1c; Goal oftherapy: <7.0% HbA1c MD TavarezMD COVID-19 (WINSOME-CoV-2) PCR Jqoyednegnsw7084-80-17 11:37:10 Test Item Value Reference Interpretation Comments Range COVID19 SARS Pre-OR Procedure Indication (test code = 23099) COVID19 SARS Result Not Detected Not Detected (test code = 14153-9) COVID19 SARS SARS-CoV-2 NOT Detected. Interpretation (test Reference Range: Not code = 61385) Detected Methodology: The Huff RealTime SARS-CoV-2 assay is a qualitative real-time reverse chain offbearer polymerase chain reaction (regional tanker truck driver-PCR) test to detect RNA from SARS-CoV-2 in nasal, nasopharyngeal and oropharyngeal swabs from patients with signs and symptoms of infection who are suspected of COVID-19 by their health care provider. The Huff RealTime SARS-CoV-2 performed on the [employer]ii[employer] System is a dual target assay with primers and probes for the RdRp and N genes. Results must be interpreted within the context of all relevant clinical and laboratory findings, and epidemiological risk factors. Positive results are indicative of the presence of SARS-CoV-2 RNA; clinical correlation with patient history and other diagnostic information is necessary to determine patient infection status. Positive results do not rule out bacterial infection or co-infection with other viruses. Negative results do not preclude SARS-CoV-2 infection and should not be used as the sole basis for patient management decisions. The Huff RealTime SARS-CoV-2 assay is for in vitro diagnostic use under FDA Emergency Use Authorization only. Testing is limited to laboratories certified under the Clinical Laboratory Improvement Amendments of 1988 (CLIA), 42U.S.C. 263a, to perform high complexity tests. The Test was performed by the CLIA-certified, high-complexity Molecular Diagnostics Laboratory ([facility]) at [facility] under the Food and Drug Administration (FDA) s Emergency Use Authorization. Factsheet for patients: https://www.[facility].org/ AbbottFactSheetPatientsFact sheet for healthcare providers: https://www.[facility].org/ AbbottFactSheetHCP Test performed by:[facility] [address] [place] [address] MD TavarezCalcium Ionized, Qafded7041-44-63 16:12:56 Test Item Value Reference Range Interpretation Comments V Ion Ca (test code = 11619-7) 1.11 mmol/L 1.15-1.29 L Lab Interpretation (test code = Abnormal 53609-8) MD TavarezOsnwnqamO00023-07-76 06:11:22 Test Item Value Reference Range Interpretation Comments T4 (test code = 7493) 11.8 See_Comment H [Auto mated message] The system [employer] generated this result transmitted ref erence range: 4.5 - 11 .7 mcg/dL. The ref erence range was not u sed to interpret this result as normal/abnor mal. Lab Interpretation (test Abnormal code = 82114-5) MD TavarezPathology Outside Axrewwvgvggsvs7442-53-95 13:47:37 Test Item Value Reference Range Interpretation Comments Materials Received (test c7pjeJLuBSDlxPBaIuSt code = 9973) TIXpSDEdk7vbJLGmtUWn ZzEwMzNcZnRuYmpcdWMx FQZnQsRfl8xmh145kNWc c8zxWJPzRpU8rNEeUABz zZUsO390ZPVcVIwnb6jn o3XjKSSplUPlw1S2DPAM ggehxYi8rFdbR11zb5Q7 RhqvB8ljOOAoFOFdS8Ic HG8xYBHrYce2GIE0PYW1 YIYhAPXyH7JtCY8oYOLw hQPoVOa4y3ftmQtxATAh EWA5d6llVUjhqhVoPY6n sy3zpPj6h4znwdTxYQHw JWKtrMKEAVUjU1GawHpa Dq5voAw4mTsmQaiqBAJ2 Mib9EP7ckn58nvw7zNqx XNRybygvHsM5KUyjNXFu whekGUj9PZvqCJGcmUnh MFxtYXJncjcyMFxtYXJn tBS2SFQfzRBmN9WbXZYj FNeyGWFpcpm2VzHsOj6g iHOglOeeTYplc5tbd0jf oXNtJdq1ARYdAdOzIpoc CReky6Ynl6wgKANuze2e SAQ0uYGzfKrtv9W9oTKj KWWlfZLkqsZoZYNxgy33 hDTmnMPmmLSbfd7oivRn aIHadRMfGFZ6rBUtliBr ZBIzcNJtIDSpLI2rwBGc OBPouS3furrxRGFsAeEk iizbBTUymKzhhlKgSe4j qCqcJPD6IKgfG8sdoS3e DcS5ERmkX4eunV6kCAx7 EZyylCR7CZCacL1pSA3z uznvo0zbPeLpOV1bqkbn t3bqQtReXC3wxcm8y5rj UPG6MDuoTHDwIaG7pxE8 NDBcaGVhZGVyeTcyMFxm s140MIV1CkAaNJUbx9Bs B6BzkUujA57zfNwuK02f QNIqiUetkM5zwZmpiZ6m EwQnQbIbBNh9vb07BYf2 eybqdTzbXDi9zxVrTTAk DDB0TAFbqWPbZIWsO0r3 kpJpCHEzDLB5DXUcxQTt KJJtF2v8zuXvERQ1XTu2 cnBhZGRmdDNcdHJwYWRk YjBcdHJwYWRkZmIzXHRy eLSasSIvlBHctM2iwCew HJDqfXXexT3jGYA2DYLm cmgzMjBcdHJoZHJcbHRy py51KYKgruVqnMSmmPdz hOWuHWB4VAPgYPXeEZWb AKT9KGCrMrNozkPmXIrn bGJyZHJiXGJyZHJzXGJy DJI9QYVqZlGfycCkVPot bGJyZHJsXGJyZHJzXGJy ZBE5SBDkZpFdasNzCNno bGJyZHJyXGJyZHJzXGJy SYM7SLCvGlWwttXpMSmi bHBhZHQxMFxjbHBhZGZ0 T9tmjTQzVHOwBLtsfXKa NKStJ8pdzCFmOSpzXEMg cGFkZmwzXGNscGFkYjBc Z4hgPODmIeDsN4ZqbBy8 MDAwXGNsdmVydGFsdFxj zYFxJIX2PFAjIBTwQNSt UEX8UFHvKpPzdwAxXAqt bGJyZHJiXGJyZHJzXGJy OKQ3KTBmQwEugfQfUIhb bGJyZHJsXGJyZHJzXGJy FWL3EZOzPwYzukHsMIen bGJyZHJyXGJyZHJzXGJy XBS5YJNlPaXvxqBcWWng bHBhZHQxMFxjbHBhZGZ0 O4lkrEKeSVAbOWnjaAUc GDBdT8oqiXAmMUqpSVIf cGFkZmwzXGNscGFkYjBc F4idEALnKqGmD8QvqBg2 NjAwXGNsdmVydGFsdFxj yGPeZAZ0OYUzAYSyLQRd PTE3GBSnIwTslyCxXIbm bGJyZHJiXGJyZHJzXGJy VPT3VXDhCmQaxmTaHZgv bGJyZHJsXGJyZHJzXGJy IHQ7MWUxUxJjwgSwQHie bGJyZHJyXGJyZHJzXGJy ICK1QFWvLmJvzoEoZYyb bHBhZHQxMFxjbHBhZGZ0 F9nuuLLgYODgJAtsdSPt QXSfG0pdbUXfAAaqNKMr cGFkZmwzXGNscGFkYjBc O0hpCUWvKtSpN8ZjzBt2 UcYiUJPutnDcxC89Hiny v7WmKHBoKIM7LIqbWMhy bFxwbGFpblxmMVxmczIw XGxonhfyAUKxOXexD0qw YbXzPGHlyZibCAbew3Lh XGYxXGNmMlxmczIwXGIg KQCjTKNipB2xGgjyF4Tt nM8qWVgcPiwwS8xvCCBf g1NtfR7wVVyeuWLfdosl MVxmczIwXGxhbmcxMDMz JDlfD4qvJuKtFMZxtBro YDcwi9YtOFVxLECtXkas zeLrVCx0hgNoGREtqLax aHOzKSsgnoOfjDpxi5Dg lwPnkBquTXJaFIr4apIu mckgwVw2bLCdmIryFZJl tEseyH0vJtNgYhGaAMom bGFpblxmMVxmczIwXGxh eolzQPQkNWrjS8ztXuTu POHkcRjvIAlnh9LfZZWx CZMcHmbinuNoJQLlT35d bGVjdGVkXHBsYWluXGYx XGZzMjBcbGFuZzEwMzNc aGljaFxmMVxkYmNoXGYx MKsyP6dtAmGdD6QhEUCc CfCnqOYeQ3lsW7OgbHrc YXJkXGludGJsXHNzcGFy CVU7jBSgpkQygZSwuSAk FQObHThvOQV4hGJixzng fPNfaydbUBgflnE9AIHd YWluXGYxXGZzMjBcbGFu ZzEwMzNcaGljaFxmMVxk MtBvINNuJJyqJ1qeTsDn I1PiRVVvWoRyGnTSYUUr aXZlZFxwbGFpblxmMVxm czIwXGxhbmcxMDMzXGhp F2ylAkClEHTddMrnFWds x9XvKJUbPRRkKlcammBs PPw0ojPeZCQyiPvfhE12 Ykmroh05LTKib4nrVEPt F0QwbMXrZCMqqJMwXUqx MDhcdHJwYWRkZmwzXHRy cGFkZHIxMDhcdHJwYWRk ZnIzXHRycGFkZHQwXHRy vRNbENL8F6b5zlWjAZQj VFx5lyGjILIxChWktWKn YMN1SWz1QcjipaT9yRQm P0a1FuhbfhKnQYirxHVu yh54YPWemeDyuTMavQjh wOTgBQE3YPCuHWEqSZLo GJT0LXLvAgFkciRuJNxd bGJyZHJiXGJyZHJzXGJy PWR1YFVrFtUeeqRpRHtg bGJyZHJsXGJyZHJzXGJy VZO8TOOiYpQzpaFjRYpl bGJyZHJyXGJyZHJzXGJy DUN4GJIiWzNyskKcTQlg bHBhZHQxMFxjbHBhZGZ0 E0resSWhPGAcTWwjcBFy TVThN6zprXEnSYotUQLd cGFkZmwzXGNscGFkYjBc M0zvKNYwDvDhJ3UhySd7 MDAwXGNsdmVydGFsdFxj dIFuKQS9GTSqJGEvESYu KNV3OOKzVyLplgBdOOmv bGJyZHJiXGJyZHJzXGJy YJD0WBChKjZhgtWjATtf bGJyZHJsXGJyZHJzXGJy RQX4ZHLyCuZxugJmLRsh bGJyZHJyXGJyZHJzXGJy TSC1CCFkUjUwawEfUMoi bHBhZHQxMFxjbHBhZGZ0 H4criYBfLSBdEFqguAYr YBOuK9paaOYnOYpzJGHp cGFkZmwzXGNscGFkYjBc I6uzOHJpBuXmR4ImgHt0 NjAwXGNsdmVydGFsdFxj kAOwKWH2EQLcQZRvCOEb YAY6CRSnUrRixjOeLKeb bGJyZHJiXGJyZHJzXGJy LLC6AJIuQhRerpKaQSkj bGJyZHJsXGJyZHJzXGJy WMC3WOJpLrIwkyLqTFfw bGJyZHJyXGJyZHJzXGJy HHG0VAZyIyIgtbRnNHlt bHBhZHQxMFxjbHBhZGZ0 F9npsBYhNTOaDNrznKUp IGSvH7beaZGoQJicHNBw cGFkZmwzXGNscGFkYjBc E6ciYGNlExLzL3CgeZw2 JfWqKOSbxpMeiF26Zkyy l5LqWPFaLVM5YChsJRmp bFxwbGFpblxmMFxmczI0 XHBsYWluXGYxXGZzMjBc bGFuZzEwMzNcaGljaFxm MTjcMmJhVWZvBFtoP0pl KaSiD3RuEHMjCcFcLG4e KfUkWQR0HDV0VAJdEQAA BJEfZNPGP9OKBvieSPKC N7XvvTaxkN4gNdZgVpPg NDfdEG9tIZKtS5iqmMNy GPGqGOUqN7yeDdVaeD3e aFxmMVxjZjJcZnMyMFxs dHJjaFxjZWxsXHBhcmRc oC62Vlwhf8GqRIDvSEG1 MFxzMFxxbFxwbGFpblxm TCxkggT2KDNrCEfzFLPn XGZzMjBcbGFuZzEwMzNc aGljaFxmMVxkYmNoXGYx ONjsV7riApVdZ5RgJCCv YwHoEv65UlWfRvCywRae mC5uPwDlBrPjUDdxGG0t SFKaE1ybtXXkELZyGVDi K8xxVwSslJ1yyHpbZOvy ZjJcZnMyMFxsdHJjaFxj ZHrwNZIxoaOntI96Uqrp d5RgVDOmCTD7VUhnGPzq bFxwbGFpblxmMFxmczI0 XHBsYWluXGYxXGZzMjBc bGFuZzEwMzNcaGljaFxm KTiiAfVcJVIpLUqkN1jl YoBsM1MvNNNcIvPnQq2a Qf1lGGQrEKQyPYynQGZj XGZzMjBcbGFuZzEwMzNc aGljaFxmMVxkYmNoXGYx AWhkM9xoQvNhX8ZgBAVv ZuWfwJPlG6gdM2VbeDqi emRpiHnst8jzgTGoPGsd j5YiuwPlaFsrOSBzRHQw XHBsYWluXGYwXGZzMjRc dUrcrR6eJqRtVgQlACtd VU2yGURfR2xdgYWwKMKl YBKgR5fsCpRpdK2ivKel MVxmczIwXHBhcn0= Addendum 1 (test code = [id number] 37) IYWun6lsq7MajSZaeOPx WLixtGStumEstj11oWO2 dN85OX1lRAJmGrK5MQPt aaL9Kxl7HXQmZDGimVCi X291l0lgz9iigcKbfNH2 wAcdSTNdxrxxNvS2TOla KVGscvnfEBr5UNnsUDKj cDK7NJZilKMnB5NqHCRg BK2tago7CGB0WBalLMYq AaW7YUSnjWErPXWwjGgn MLawe628IMG2PbXpAOMw seMplXuhbI8jKxOvVTYH BOFerKzjirTmVH1zjXCy oEZqRHPrX9UtqyUrGC4a SYweNDCdXaYcGTbbG4T9 x0pcAFGWA0Xsy0Dao54h EaDXEiFdJLq2CLKmPHQz W3WlBCMkRfgDJ1rrIFDu LDLOMWJlt2fpWBO8XCBj p23lFt91UpNqMaBjFHIp zsmdLVWhTO1vvA5smDbf hI1hgQLxtLGjeSAsdOAa cqExf6TeKHTAAFRplwJ0 JByyMWXyl3w7mGIlXWid J06zKIZzHyxpTkvkY9Nj uUXyBTCodDflC0XimZBz zay5AUMkFP8yzLWvWTCn ybYQlTJrvHFbi0DcA9Ky sVWtz1zulbWvEMMnwD4p OUUfbTAvQMJoBOP9lANc b8Ekf62vXg4gNYNzMVVo aXNtYXRjaCByZXBhaXIg cHJvdGVpbnMgTUxIMSwg ZO2UXxsaWUVRRkewPR4u FV8GVBWyGSFaqf1ttY6w NGRceK65HZRvy2UlBhjl lES0PZMbjuPjfTphNC1g F8Qys1M5PUummKYaMWhp c8XoOriqkPS8IrobDYFk cGFyZFxwYXJ9 Diagnosis (test code = q8tbyHYbIZEkeMS4PMGv 34) XHJff0dol6JufLTkyVZo MJdweXXzehFncs11pGE6 oH85VC6vXEStPtL2EZHw mpW1Tro2ANOxEUOamGZn M227f8lbb6vmsoDcnNN6 IKIsHCQcQ0RvQY2hOOHe vJEoJ68fqYSoJCA9GTDb QVDsvBBsHRMaCBY8FYOo jMGrK8rfBSIcEA1ongkz FRmaYDyuGKSvnUJ2MHUq qFPuW1MhQYFyPJlvRHPq xcp2NaBoAs4wlBXtwDte MFxwYXJkXHBsYWluXGZz EgVhX9YwODSuapKxGC41 eCOqUZJau5vgNLEnKZlH XrOlDLd5UEDsQYBuIk2p JUCtYBWxO0ZcDTXdj7ff zmA4UTQeMJTjBd8rnZ64 czpccGFyXHBhclxsaTcy YKukgM46DnWaW91rjP9d IGJpbGUgZHVjdCwgYmlv uZW2LFaNJQfsTUgMPIjs Vvo4XKJsvwguXEDmjXxp RZTrVYNaMHdcPTrumM8v MTYwIElOVkFTSVZFIEFE MV4WT2FUO7dPL80GRGyS NYaoLJYXEX5WQKXaXlBQ DQGRLIFjJBVTTAHCH81F FK2CXX1zaQEhBOZzwpSz qJNpMO8UNA6LFCQxTWUl cn0= Comment (test code = k8pzcLIkFEXdlAX2YCLi 0113) NQGxm0wjp4CcoLRjyLSe HMvfyAHmbfUflo75cCA8 qX78NS3bPMKyNuS7ROUc qtC0Lwj4DMNvRXCljLFw E828t3knx6hpooRtuCI6 xBfjBEOjduloNbS3BQjg UIYqvomeYHo1FWebVRRr cBF5RNNmiBNzR4VdSVJy YL7zrkh3OOQ7XKkgBLVz ToX1RFKynWGaMQNbqAba MPqjb626RCS7XxObAKPy voFexDskqY0eRnSsHMOK xPNouATpb0AfTLKtPJGh pqE7oiSlFHGlo20va6Yf KNYeWzGisNb4gMBvfZKx PSJkud4njkqgOQJmCFMo yYkdkcmpl1HtzAE2oBKf HMDnBSHwjXInEQO8i4oe j0s9SYQsBIelnbJ7xDOf bR4uyYNrfE6mLJ3iZRYj RSMujKtreY9fsB3ebtd4 IGRpZmZlcmVudGlhdGVk NGLeRA2yX8YmU9nle20w GI3bCYHxpRTpiEoygEOl RFHdoH1gr4frUoWlRXgu DS1ss8IaRAQ0wAOvW9Gv dCQeSMAkUVFjj6g0pHQn ONJghdCswESgq2SgBPTh kzE2NtAvPSswACY0Bg3q hEWaVVNltJ50bn8oxFC1 w6TfPY0tE5JyGKV2APks JCUjddQQAIPHQNKzeS54 cyBpbmNvbmNsdXNpdmUg GvolMGkuX5BpIZNEqEnk zRGvhLDzlnAgexKcaK4m s1nhAmWtg2QnCInqnXds ywEoysWmZOIhlQ8zclTp SZ0cIMupRAY7 [employer](s) (test code b4tbjGDkXZSmmAL9QTTg = 9863) DCMiu7bjd8QxaYFycEFq KEhvrQLiqnTesb01sLM1 yN15CV1cZGIuNuU0PWIz lwZ0Yxx5NSTnBIWxpNSj S014o5coh0dpopLlsNV0 oKzpELUujoupRjH2THrx MJPxguziBXu8CNpkLLVu dUU7EEUabVSwL4OaUJFa JX7riop9WCP3EEbfFSZo KpO5FIFduBHkLIJwrHiq MFvxn879KFQ3SxIeJKVl evEwpOdsyJ9fGdQmNTRW W9HjtMBtsM== [employer](s) (test p8vteOYyGUUqeRE7SRMd code = 9841) YLTyy4buz7HztEMhyTIt LQtioZMjnjOber65eNP0 tY65NF2oFDFxVvY2BPHb nnT5Ceq3HHNsCPRjyQFv C213a0zmf8vsvbQpoLA6 nTuhCBQawqgtRcN6FZaw GQOkrevuTNi9CXxeCWTf gST0FGCarUBeA9ImUXPm OV4yclt9DAU4ORjuUHZe ToU8HLClkSMoNOPkyChm TLigc936FDL5ScQySUGg odWlsNkdeD8gGvYpIEPB gS6sdbYehZ5isdnbQMQr cGFyfQ== Disclaimer (test code = i2nwcAMuQWUlmZTuSgAk 9844) EJYmAHLnx5woHBNewWCg ZzEwMzNcZnRuYmpcdWMx ZKJcUiXah4nwy113vEOk e5pjDKGwIkI4lKYhUBRc yWKkM840SZNyTGhhq2he g1AhMEGzhFYgm8C4QVPF vpomwJl3nSfmT83af5U2 YpcrX0toORCePTWpB4Cy MR5hLQCvGgx3OHL5AWX3 GRQfAJOdP4YxQM9bUSMi aUYeDMx7j8ztkBkkQLGy HCZ1x9zeWMbpnsOcCZ0b fi2tlQn0z8uycbOeIONf MRCmpAQWMQAzQ2IyaWcc Rj9ddJb2pLbdHndsMAW9 Fif9ZM4uji35fat9tZub GPRmyzytTvA6SEcxECXj slamCGj3OEzsFCBoaXW1 QBHwdOPpB0OzTNBjEH3k fia3ZJT8UWhlJCWhCdG0 NDBcaGVhZGVyeTcyMFxm c445SZC8CgMbGG0qC0Pg o7C4dH9pxAVkEJBbiSFa FbLqNIJwzy9wjNPhDZlg c7WaMCW8kdJ0bOGivJCm UNIeHZ68Emcvr9BlWvhk WRQ3VGWvagPbd6Gii6pv KfTwqbOpV9lcO7FrVRQr ZHLvFDOyGaOiuoExr8Ff v7JokKGziMx0p6rhFJUf RLXnnDikq9nvPZD0YZTo J7S8ySRmu4vwQKtpWWDe tEZ5khT0JLYfaMRpZ3Lg aZ5eRLVtLW0hhin4c4xf HUH5GZjdRTEsLoV1qtQ3 NDBcaGVhZGVyeTcyMFxm z118SUQ1QjBkKWWro6Ru V0ZfqBidZ33riJuyB41x UCNasBwwqI0ayJrxhA7b ZjBcZnMyNFxxbFxwbGFp xukyXLpgioN3JYgypjus UZWkWZqbO8iaFgBsIMLa gPdcRAqwi9JtTJJfARCy PsmvuwM4GBDFu79aWJFk b7IlERAixU6cyBNgLBnz epTkzUQ3HXnnkqGqKtZh aeSsVNAnfB0yVHTaEG9w SGOjayLpyd5dxgSsXPOu OYTpY4VfbpovnLjoutAz LVYrux8sutWsSPL6TCVP JB1VFSIuMWVyd48vGEPn eCegmQ6icJYhljYzNTVt n5CbeW9zoQXMARSgP9ss JQ3qXCkfh6QygKLytZGb xUZ0RLWqb0YrCsCzgjVx qBLykSOjH2ZxmLlgW9op DXOfPQWhroSgqZQhu5Tr CPSdfZN6bVPlDH7MYePV x50tOWObNGQRkgGgKEBq nNilwFM0oiD1pF6sNcOI ZiBhcHBsaWNhYmxlLCBj n681is3ohlB3FTUnPUQr rqsgp3PgJWMiITXndO86 JCOdCZPbss7upfkqzSUb qdOoU7Uxuhi2sP4mWRFi YWluXGYxXGZzMjJcbGFu ZzEwMzNcaGljaFxmMVxk KzFvXXOdAEyfZ6cfLxNg ZnMyMlxwYXJ9 MD TavarezFolate, [id number] 22:05:59 Test Item Value Reference Range Interpretation Comments Folate, RBC (test 964 See_Comment Lab test p erformed by:Lab code = 8855) Mnemonic: [facility] [address] [id number] [place] [id number] Giovanna BEGUM MD [Automated message] The sy stem which generated this result transmitted ref erence range: >280 ng/ mL RBC. The reference range was not used to interpr et this result as trudi l/abnormal. MD Vidal [id number] 16:53:20 Test Item Value Reference Range Interpretation Comments Free T3 (test code = 7478) 2.9 pg/mL 2.0-4.4 MD [id number] 14:45:33 Test Item Value Reference Range Interpretation Comments AFP (test code = <2.7 See_Comment Results gre ater than 4696) 45,875.00 ng/mL may not be reliable due to matrix effect with ext ended dilution as it exceeds the automobile insurance claim examiner's recommended limit. Caution should be exercised when interpreting such values and done in conjunction wit h clinical context. [Auto mated message] The sy stem which generated this result transmitted ref erence range: <=8.3 ng/mL. Th e reference range was not u sed to interpret this result as normal/abnormal . MD TavarezPotassium [id number] 06:58:56 Test Item Value Reference Range Interpretation Comments U Potassium (test code 7 mEq/L Trudi l range not = 7802) available for c ollections less than 24 ho urs in duration. MD TavarezCreatinine [id number] 06:58:55 Test Item Value Reference Range Interpretation Comments U Creatinine (test code 24.7 mg/dL 29.0-226.0 L The reference range = 7725) listed is for f irst morning urine collection. Lab Interpretation (test Abnormal code = 12129-1) MD Tavarez
[2021-09-22 01:40] LABS: Absolute Lymphocytes (CBC) 0.3 K/uL (0.7-4.9); Basophils % 0.1 % (0-1.3); Hematocrit 25.8 % (36.0-45.0); MPV 6.4 fL (7.6-11.3); RBC Red Blood Cell Count 2.53 M/uL (3.86-4.86)
[2021-09-22 01:43] LABS: Protime INR 1.03
[2021-09-22 01:58] LABS: ALT/SGPT 176 U/L (12-78); AST/SGOT 229 U/L (15-37); Albumin 2.8 g/dL (3.4-5.0); Alkaline Phosphatase 216 U/L (45-117); BUN Blood Urea Nitrogen 17 mg/dL (7-18); Bicarbonate 22 mmol/L (21-32); Bilirubin Direct 0.4 mg/dL (0-0.2); Bilirubin Total 0.6 mg/dL (0.2-1.0); Glucose Level 153 mg/dL (74-106); Lipase 172 U/L (73-393); Potassium 4.2 mmol/L (3.5-5.1); Protein, Total 6.2 g/dL (6.4-8.2); Sodium Level 137 mmol/L (136-145)
[2021-09-22 02:29] LABS: Urine Blood Negative (Negative); Urine Glucose Negative (Negative); Urine Protein Negative (Negative); Urine pH 5.5 (5.0-7.0)
[2021-09-22 03:15] LABS: Urine Bacteria <20 /HPF (<20); Urine Mucus 2+ /HPF (NONE SEEN); Urine RBC <5 /HPF (NONE SEEN)
--- NOTE | 2021-09-22 03:38 | EDPHYS ---
Physician Documentation [facility] Name: Tunde Ochoa Age: 71 yrs Sex: Female : 1950 Arrival Date: 09/22/2021 Time: 01:04 Bed 3 Private MD: Julian Miles HPI: 09/22 02:04 This 71 yrs old Female presents to ER via Unassigned with complaints of Fever, jr8 abdominal pain. 02:04 Onset: The symptoms/episode began/occurred acutely, just prior to arrival. Severity of jr8 symptoms: At their worst the symptoms were moderate in the emergency department the symptoms have improved mildly. The patient has not experienced similar symptoms in the past. The patient has been recently seen by a physician:. This is a 71-year-old female with a history of common hepatic carcinoma that was recently seen by MD Tavarez for abdominal pain with diarrhea. Was discharged a few days ago with a diagnosis of colitis. Since then has been on ciprofloxacin and metronidazole along with loperamide. Patient stated that she had been improving, had some food tonight and then started to have abrupt onset of abdominal pain with body aches and chills. Patient per EMS had 101 fever and was given IV Tylenol 1 g. Patient's fever is down upon arrival but still having abdominal discomfort. Denies any other new symptoms. Historical: - Allergies: 01:51 Morphine; df1 02:06 Pt tolerates small dose of Morphine IV; df1 - Home Meds: 02:06 dexamethasone 4 mg Oral tab 1 tab once daily [Active]; morphine 15 mg Oral TbER 1 tab df1 every 12 hours [Active]; olanzapine 2.5 mg oral tab once daily [Active]; zinc sulfate 220 mg Oral cap twice a day [Active]; Protonix 40 mg Oral TbEC 1 tab once daily [Active]; omeprazole 40 mg Oral cpDR 1 cap once daily [Active]; sitagliptin 50 mg oral tab 1 tab once daily [Active]; calcium carbonate 500 mg calcium (1,250 mg) Oral cap [Active]; lactulose 10 gram/15 mL (15 mL) Oral soln 15 mL once daily [Active]; Vitamin D3 100 mcg (4,000 unit) oral cap daily [Active]; pravastatin 40 mg oral tab 1 tab once daily [Active]; Vitamin C 1,000 mg oral TbER [Active]; Vitamin B-12 Oral [Active]; - PMHx: 01:51 Diabetes - NIDDM; High Cholesterol; biliary cancer; df1 02:06 primary adenocarcinoma of common bile duct; chemotherapy; df1 - PSHx: 01:51 bile drains x 2; df1 02:06 right hip replacement; right wrist repair; right foot repair; left cataract; df1 - Immunization history:: Adult Immunizations up to date, Client reports receiving the 2nd dose of the Covid vaccine. - Social history:: Smoking status: Patient/guardian denies using tobacco. ROS: 02:04 Eyes: Negative for injury, pain, redness, and discharge, ENT: Negative for injury, jr8 pain, and discharge, Neck: Negative for injury, pain, and swelling, Cardiovascular: Negative for chest pain, palpitations, and edema, Respiratory: Negative for shortness of breath, cough, wheezing, and pleuritic chest pain, Back: Negative for injury and pain, MS/Extremity: Negative for injury and deformity, Skin: Negative for injury, rash, and discoloration, Neuro: Negative for headache, weakness, numbness, tingling, and seizure. 02:04 Constitutional: Positive for fever. 02:04 Abdomen/GI: Positive for abdominal pain. Exam: 02:04 Constitutional: This is a well developed, well nourished patient who is awake, alert, jr8 and in no acute distress. 02:04 Respiratory: Lungs have equal breath sounds bilaterally, clear to auscultation and percussion. No rales, rhonchi or wheezes noted. No increased work of breathing, no retractions or nasal flaring. Back: No spinal tenderness. No costovertebral tenderness. Full range of motion. Skin: Warm, dry with normal turgor. Normal color with no rashes, no lesions, and no evidence of cellulitis. MS/ Extremity: Pulses equal, no cyanosis. Neurovascular intact. Full, normal range of motion. Neuro: Awake and alert, GCS 15, oriented to person, place, time, and situation. Cranial nerves II-XII grossly intact. Motor strength 5/5 in all extremities. Sensory grossly intact. 02:04 Cardiovascular: Rate: tachycardic, Rhythm: regular, Pulses: Pulses are 2+ in right radial artery and left radial artery. Heart sounds: normal, normal S1and S2, no S3 or S4, no murmur, no rub, no gallop, Edema: is not appreciated, JVD: is not appreciated. 02:04 Abdomen/GI: Inspection: Biliary tubes noted to the right upper quadrant of the abdomen. Covered by bandages but draining normal biliary content., Bowel sounds: active, all quadrants, Palpation: soft, in all quadrants, mild abdominal tenderness, in the abdomen diffusely, mass, is not appreciated, rebound tenderness, is not appreciated, voluntary guarding, is not appreciated, involuntary guarding, is not appreciated, no appreciated organomegaly, Indicators: McBurney's point is not tender, Rangel's sign is negative, Rovsing's sign is negative, Liver: tenderness, is not appreciated. 03:38 ECG was reviewed by the Attending Physician. [facility] Vital Signs: 02:04 BP 113 / 62; Pulse 99; Resp 18; Temp 99.9(O); Pulse Ox 100% on R/A; Weight 45.36 kg; df1 Height 5 ft. 0 in. (152.40 cm); Pain 4/10; 03:33 BP 136 / 92; Pulse 72; Resp 18; Temp 99.3(O); Pulse Ox 100% on R/A; Pain 8/10; df1 04:37 BP 103 / 55; Pulse 109; Resp 18; Pulse Ox 100% on R/A; df1 02:04 Body Mass Index 19.53 (45.36 kg, 152.40 cm) df1 MDM: 01:08 Patient medically screened. [facility] 03:39 Differential diagnosis: bowel obstruction, cholecystitis, Mesenteric ischemia or stormy infarction, non-specific abd pain, pancreatitis, Peptic Ulcer Disease, Peritonitis, urinary tract infection. Data reviewed: vital signs, nurses notes, lab test result(s), radiologic studies, CT scan, plain films. Data interpreted: research laboratory manager: rate is 72 beats/min, rhythm is regular, Pulse oximetry: on room air is 100 %. 12 01:09 Order name: Basic Metabolic Panel [facility] 09/22 01:09 Order name: Blood Culture Adult (2) [facility] 09/22 01:09 Order name: CBC with Diff; Complete Time: 02:02 [facility] 09/22 01:09 Order name: LFT's; Complete Time: 02:02 jr09/22 01:09 Order name: Lactate; Complete Time: 02:02 09/22 01:09 Order name: Lipase; Complete Time: 02:02 09/22 01:09 Order name: Procalcitonin; Complete Time: 02:22 09/22 01:09 Order name: Protime (+inr); Complete Time: 02:02 09/22 01:09 Order name: Ptt, Activated; Complete Time: 02:02 09/22 01:09 Order name: Urine Microscopic Only; Complete Time: 03:17 09/22 01:09 Order name: Basic Metabolic Panel; Complete Time: 02:02 EDMS 09/22 01:38 Order name: Glucose, Ancillary Testing; Complete Time: 02:02 EDMS 09/22 02:29 Order name: Urine Dipstick-Ancillary; Complete Time: 02:44 EDMS 09/22 03:39 Order name: COVID-19 SARS RT PCR (Document "Date of Onset" if Symptomatic) df1 09/22 01:09 Order name: Chest Single View XRAY 09/22 01:09 Order name: Accucheck; Complete Time: 01:50 09/22 01:09 Order name: Cardiac monitoring; Complete Time: 01:15 09/22 01:09 Order name: EKG - Nurse/Tech; Complete Time: 01:50 09/22 01:09 Order name: IV Saline Lock - Large Bore; Complete Time: 01:15 09/22 01:09 Order name: Labs collected and sent; Complete Time: 01:15 09/22 01:09 Order name: O2 Per Protocol; Complete Time: 01:15 09/22 01:09 Order name: O2 Sat Monitoring; Complete Time: 01:15 09/22 01:09 Order name: Urine Dipstick-Ancillary (obtain specimen); Complete Time: 02:33 09/22 02:03 Order name: CT Abd/Pelvis - IV Contrast Only EC:38 Rate is 98 beats/min. Rhythm is regular. QRS [place] is Normal. VA interval is normal. QRS stormy interval is normal. QT interval is normal. No Q waves. T waves are Normal. No ST changes noted. Clinical impression: Normal ECG and No evidence of ischemia. Interpreted by me. Reviewed by me. Administered Medications: 01:22 Drug: NS 0.9% 1000 ml Route: IV; Rate: 1000 ml; Site: right forearm; df1 04:36 Follow up: IV Status: Completed infusion; IV Intake: 1000ml df1 04:35 Drug: Zofran (Ondansetron) 4 mg Route: IVP; Site: right forearm; df1 05:25 Follow up: Response: Nausea is decreased df1 04:36 Drug: fentaNYL (PF) 25 mcg Route: IVP; Site: right forearm; df1 05:25 Follow up: Response: Pain is decreased df1 Disposition: 03:48 Co-signature as Attending Physician, Julian Tavarez MD I agree with the assessment and stormy plan of care. Disposition Summary: 09/22/21 03:38 Transfer Ordered Transfer Location: Other Acute Care Facility stormy Reason: Higher level of care stormy Condition: Fair stormy Problem: new tsormy Symptoms: have improved stormy Accepting Physician: to [facility](09/22/21 05:39) df1 Diagnosis - Abdominal tenderness stormy - Fever, unspecified stormy - Disease of biliary tract, unspecified - ADENOCARCINOMA stormy - Anemia, unspecified stormy Forms: - Medication Reconciliation Form stormy - SBAR form stormy Signatures: Dispatcher [employer] Julian Coyle MD MD cha Roszak, Josh, PA PA jr8 Kori Bolton df1 Corrections: (The following items were deleted from the chart) 02:15 01:51 Home Meds: Aspirin Oral; df1 df1 02:15 01:51 Home Meds: Metformin Oral; df1 df1 02:15 01:51 Home Meds: Omeprazole Oral; df1 df1 02:15 01:51 Home Meds: pravastatin Oral; df1 df1 02:15 01:51 PMHx: liver cancer; df1 df1 05:39 03:38 to [facility] stormy df1
--- NOTE | 2021-09-22 03:38 | ER ---
Nurse's Notes [facility] Name: Tunde Ochoa Age: 71 yrs Sex: Female : 1950 Arrival Date: 09/22/2021 Time: 01:04 Bed 3 Private MD: Diagnosis: Abdominal tenderness;Fever, unspecified;Disease of biliary tract, unspecified-ADENOCARCINOMA;Anemia, unspecified Presentation: 09/22 02:04 Chief complaint: Patient states: Abd pain. Coronavirus screen: Vaccine status: Patient df1 reports receiving the 2nd dose of the covid vaccine. Client denies travel out of the [place] in the last 14 days. At this time, the client does not indicate any symptoms associated with coronavirus-19. Ebola Screen: Patient negative for fever greater than or equal to 101.5 degrees Fahrenheit, and additional compatible Ebola Virus Disease symptoms Patient denies exposure to infectious person. Patient denies travel to an Ebola-affected area in the 21 days before illness onset. Initial Sepsis Screen: Does the patient meet any 2 criteria? No. Patient's initial sepsis screen is negative. Does the patient have a suspected source of infection? Yes: Acute abdominal pain. Risk Assessment: Do you want to hurt yourself or someone else? Patient reports no desire to harm self or others. Onset of symptoms was September 21, 2021 at 23:00. 02:04 Method Of Arrival: EMS: [facility] df1 02:04 Acuity: GUS 3 df1 Triage Assessment: 02:16 General: Appears uncomfortable, ill, Behavior is calm, cooperative. Pain: Complains of df1 pain in abdomen Pain does not radiate. Pain currently is 4 out of 10 on a pain scale. Historical: - Allergies: 01:51 Morphine; df1 02:06 Pt tolerates small dose of Morphine IV; df1 - Home Meds: 02:06 dexamethasone 4 mg Oral tab 1 tab once daily [Active]; morphine 15 mg Oral TbER 1 tab df1 every 12 hours [Active]; olanzapine 2.5 mg oral tab once daily [Active]; zinc sulfate 220 mg Oral cap twice a day [Active]; Protonix 40 mg Oral TbEC 1 tab once daily [Active]; omeprazole 40 mg Oral cpDR 1 cap once daily [Active]; sitagliptin 50 mg oral tab 1 tab once daily [Active]; calcium carbonate 500 mg calcium (1,250 mg) Oral cap [Active]; lactulose 10 gram/15 mL (15 mL) Oral soln 15 mL once daily [Active]; Vitamin D3 100 mcg (4,000 unit) oral cap daily [Active]; pravastatin 40 mg oral tab 1 tab once daily [Active]; Vitamin C 1,000 mg oral TbER [Active]; Vitamin B-12 Oral [Active]; - PMHx: 01:51 Diabetes - NIDDM; High Cholesterol; biliary cancer; df1 02:06 primary adenocarcinoma of common bile duct; chemotherapy; df1 - PSHx: 01:51 bile drains x 2; df1 02:06 right hip replacement; right wrist repair; right foot repair; left cataract; df1 - Immunization history:: Adult Immunizations up to date, Client reports receiving the 2nd dose of the Covid vaccine. - Social history:: Smoking status: Patient/guardian denies using tobacco. Screenin:15 Abuse screen: Denies threats or abuse. Nutritional screening: No deficits noted. df1 Tuberculosis screening: No symptoms or risk factors identified. Fall Risk None identified. Assessment: 03:33 General: Appears uncomfortable, ill, Behavior is calm, cooperative. Pain: Complains of df1 pain in abdomen Pain does not radiate. Pain currently is 8 out of 10 on a pain scale. Quality of pain is described as sharp, Pain began Is. Neuro: No deficits noted. Cardiovascular: No deficits noted. Respiratory: Airway is patent Trachea midline Respiratory effort is even, unlabored, Respiratory pattern is regular, symmetrical, Breath sounds are clear bilaterally. GI: Abdomen is flat, biliary drain x 2 Bowel sounds present X 4 quads. Abd is soft X 4 quads Abdomen is tender to palpation Reports lower abdominal pain, upper abdominal pain. : No deficits noted. EENT: No deficits noted. Musculoskeletal: No deficits noted. Vital Signs: 02:04 BP 113 / 62; Pulse 99; Resp 18; Temp 99.9(O); Pulse Ox 100% on R/A; Weight 45.36 kg; df1 Height 5 ft. 0 in. (152.40 cm); Pain 4/10; 03:33 BP 136 / 92; Pulse 72; Resp 18; Temp 99.3(O); Pulse Ox 100% on R/A; Pain 8/10; df1 04:37 BP 103 / 55; Pulse 109; Resp 18; Pulse Ox 100% on R/A; df1 02:04 Body Mass Index 19.53 (45.36 kg, 152.40 cm) df1 ED Course: 01:04 Patient arrived in ED. mw2 01:08 Waylon Dillon PA is PHCP. jr8 01:08 Julian Tavarez MD is Attending Physician. jr8 01:14 Kori Bolton is Primary Nurse. df1 01:14 Basic Metabolic Panel Sent. df1 01:14 Basic Metabolic Panel Sent. df1 01:15 Blood Culture Adult (2) Sent. df1 01:15 CBC with Diff Sent. df1 01:15 LFT's Sent. df1 01:15 Lactate Sent. df1 01:15 Lipase Sent. df1 01:15 Procalcitonin Sent. df1 01:15 Protime (+inr) Sent. df1 01:15 Ptt, Activated Sent. df1 01:33 Chest Single View XRAY In Process Unspecified. EDMS 02:06 Triage completed. df1 02:15 No provider procedures requiring assistance completed. Maintain EMS IV. Dressing df1 intact. Good blood return noted. Site clean \T\ dry. Gauge \T\ site: 20 Right FA. 02:15 Patient has correct armband on for positive identification. Placed in gown. Bed in low df1 position. Call light in reach. Side rails up X 1. Adult w/ patient. cotton puller on. Pulse ox on. NIBP on. 02:16 Arm band placed on right wrist. df1 02:33 Blood Culture Adult (2) Sent. df1 02:33 Urine Microscopic Only Sent. df1 02:55 CT Abd/Pelvis - IV Contrast Only In Process Unspecified. EDMS 05:39 Patient transferred, IV remains in place. df1 Administered Medications: 01:22 Drug: NS 0.9% 1000 ml Route: IV; Rate: 1000 ml; Site: right forearm; df1 04:36 Follow up: IV Status: Completed infusion; IV Intake: 1000ml df1 04:35 Drug: Zofran (Ondansetron) 4 mg Route: IVP; Site: right forearm; df1 05:25 Follow up: Response: Nausea is decreased df1 04:36 Drug: fentaNYL (PF) 25 mcg Route: IVP; Site: right forearm; df1 05:25 Follow up: Response: Pain is decreased df1 Intake: 04:36 IV: 1000ml; Total: 1000ml. df1 Outcome: 03:38 ER care complete, transfer ordered by MD. burrows 05:39 Transferred by ground EMS to [facility]. df1 05:39 Condition: stable 05:39 Instructed on the need for transfer. 05:39 Patient left the ED. df1 Signatures: Dispatcher [employer] EDMS Julian Tavarez MD MD cha Roszak, Josh, PA PA jr8 DaleGemini mishra mw2 Kori Bolton df1 Corrections: (The following items were deleted from the chart) 02:15 01:51 Home Meds: Aspirin Oral; df1 df1 02:15 01:51 Home Meds: Metformin Oral; df1 df1 02:15 01:51 Home Meds: Omeprazole Oral; df1 df1 02:15 01:51 Home Meds: pravastatin Oral; df1 df1 02:15 01:51 PMHx: liver cancer; df1 df1
[2021-09-22] MEDS ORDERED: FENTANYL CITR 100 MCG/2 ML ONE (04:20)
[2021-09-22] MEDS ORDERED: ONDANSETRON 4 MG/2 ML VIAL ONE (04:20)
[2021-09-22 05:45] VITALS: O2SAT 100
[2021-09-22 05:46] VITALS: TEMP 99.3
[2021-09-22 05:48] VITALS: BP 103/55
--- NOTE | 2021-09-22 07:35 | RAD REPORT ---
EXAM DESCRIPTION: RAD - Chest Single View - 09/22/2021 1:33 am CLINICAL HISTORY: FEVER COMPARISON: Chest Single View dated 03/21/2021; Chest Single View dated 03/16/2019; Abdomen 1 View (KUB ) dated 06/03/2018; Chest Single View dated 05/28/2018; Abdomen Pelvis W Contrast dated 09/22/2021; Abd omen Pelvis W Contrast dated 03/21/2021 FINDINGS: Lines: Right IJ approach Port-A-Cath with tip overlying the SVC. Internal external biliary stents present overlying the upper abdomen. Lungs: No evidence of edema or pneumonia. Pleural: No significant pleural effusions or pneumothorax. Cardiac: The heart size is within normal limits. Bones: No acute fractures. Other: IMPRESSION: No acute cardiopulmonary disease.
--- NOTE | 2021-09-22 19:08 | RAD REPORT ---
EXAM DESCRIPTION: CT - Abdomen Pelvis W Contrast - 09/22/2021 6:37 am CLINICAL HISTORY: ABD PAIN TECHNIQUE: Axial computed tomography images of the abdomen and pelvis with intravenous contrast. S agittal and coronal reformatted images were created and reviewed. This CT exam was performed using one or more of the following dose reduction techniques: automated exposure control, adjustment of t he mA and/or kV according to patient size, and/or use of iterative reconstruction technique. COMPARISON: 03/21/2021 FINDINGS: Lung bases: Patchy bibasilar opacities. Heart: Coronary artery calcification. ABDOMEN: Liver: Interval placement of 2 biliary pigtail catheters terminating in the 2nd duodenal segment. O verall degree of intrahepatic biliary dilatation is not significantly changed. Gallbladder and bile ducts: No calcified stones. Pancreas: Unremarkable. No mass. No ductal dilation. Spleen: Unremarkable. No splenomegaly. Adrenals: Unremarkable. No mass. Kidneys and ureters: Stable 4.5 cm cyst at the medial upper pole of the right kidney. Stable subcen timeter cortical hypodensity at the upper pole of the right kidney which is too small to characterize . No calculi. No hydronephrosis. Stomach and bowel: Moderate stool. No obstruction. No appreciable mucosal thickening. PELVIS: Appendix: Normal caliber appendix. No findings to suggest acute appendicitis. Bladder: Unremarkable. No mass. Reproductive: There has been a hysterectomy. No adnexal cysts or masses are identified. ABDOMEN and PELVIS: Intraperitoneal space: Unremarkable. No free air. No significant fluid collection. Bones/joints: Multilevel spondylosis. Right total hip arthroplasty with associated artifact. No acu te fracture. No dislocation. Soft tissues: Bilateral breast implants. Vasculature: Mild to moderate atherosclerotic disease. No abdominal aortic aneurysm. Lymph nodes: Unremarkable. No enlarged lymph nodes. IMPRESSION: 1. Interval placement of 2 biliary pigtail catheters terminating in the 2nd duodenal s egment. Overall degree of intrahepatic biliary dilatation is not significantly changed. 2. Moderate stool. No obstruction. 3. Patchy bibasilar opacities (atelectasis and/or infiltrate). 4. Other findings as above. Electronically signed by: Brenna Laureano MD 09/22/2021 3:59 AM ESCORT CAR DRIVER Due to temporary technical issues with the PACS/Fluency reporting system, reports are being signed by the in house radiologists without review as a courtesy to insure prompt reporting. The interpreting radiologist is fully responsible for the content of the report.
--- NOTE | 2021-09-23 12:37 | EKG ---
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
== END 2021-09-22 05:39 ==
LOC: ER 00:52
DX: R10.819 Abdominal tenderness, unspecified site (principal); R50.9 Fever, unspecified; C24.9 Malignant neoplasm of biliary tract, unspecified; D64.9 Anemia, unspecified; E11.9 Type 2 diabetes mellitus without complications; Z96.641 Presence of right artificial hip joint; Z20.822 Contact with and (suspected) exposure to COVID-19
CPT/HCPCS: 96361; 93005; 87040 ×2; 85025; 80048; 36415; 87205; 85610; 82947; 80076; 83605 ×2; 85730; 87077; 87186; 83690; 84145; 74177; 71045; 96375; 96374; 99285; U0003; Q9967; J3010; J2405; 81003; 81015